=== PATIENT | male | born 1980 | race Caucasian/White ===

== ENCOUNTER 2020-11-20 16:08 | Inpatient (IN) | payer OTHER ==
[2020-11-20 16:37] LABS: Basophils # (A) 0.1 k/uL (0-0.2); Basophils % (A) 1 %; Eosinophils # (A) 0.2 k/uL (0-0.7); Eosinophils % (A) 2 %; HCT 47.1 % (39.0-53.0); HGB 15.7 gm/dL (13.0-17.5); Lymphocytes # (A) 3.3 k/uL (1.0-4.8); Lymphocytes % (A) 31 %; MCH 29.4 pg (25.0-35.0); MCHC 33.4 g/dL (31.0-37.0); MCV 87.8 fL (80.0-100.0); Mean Platelet Volume 7.6; Monocytes # (A) 0.4 k/uL (0-1.0); Monocytes % (A) 4 %; Neutrophils # (A) 6.5 k/uL (1.3-7.7); Neutrophils % (A) 60 %; Platelet Count 272 k/uL (150-450); RBC 5.36 m/uL (4.30-5.90); RDW 13.3 % (11.5-15.5); WBC 10.8 k/uL (3.8-10.6)
[2020-11-20] MEDS ORDERED: ASPIRIN 81 MG PO STA (16:45)
[2020-11-20] MEDS ORDERED: HEPARIN SODIUM,PORCINE 5,000 UNIT/ML 1 ML VIAL IV STA (16:46)
[2020-11-20] MEDS ORDERED: HEPARIN SODIUM 1,000 UN/ML (10ML VL) IV STA (16:46)
[2020-11-20] MEDS: NITROGLYCERIN SL TABS 0.4 MG TAB SUBLINGUAL STA ×3 (16:53→17:03)
[2020-11-20 16:54] LABS: D-Dimer <0.17 mg/L FEU (<0.60); INR 0.9 (<1.2); Partial Thromboplastin Time 23.6 sec (22.0-30.0)
[2020-11-20 16:56] LABS: Potassium 4.1 mmol/L (3.5-5.1)
[2020-11-20 16:57] LABS: ALT 27 U/L (4-49); AST 25 U/L (17-59); African American GFR (CKD) >90 (>60 ml/min/1.73 sqM); Albumin 4.4 g/dL (3.5-5.0); Alkaline Phosphatase 97 U/L (38-126); Anion Gap 10 mmol/L; Blood Urea Nitrogen 13 mg/dL (9-20); Calcium 9.6 mg/dL (8.4-10.2); Carbon Dioxide 26 mmol/L (22-30); Chloride 100 mmol/L (98-107); Glucose 336 mg/dL (74-99); Lipase 100 U/L (23-300); Magnesium 1.9 mg/dL (1.6-2.3); Non-African American GFR(CKD) >90 (>60 ml/min/1.73 sqM); Sodium 136 mmol/L (137-145); Total Bilirubin 0.9 mg/dL (0.2-1.3)
[2020-11-20] MEDS ORDERED: MORPHINE SULFATE 4 MG/ML SYRINGE IVP STA (17:04)
[2020-11-20] MEDS ORDERED: LIDOCAINE 1% INJ 10MG/ML (20 ML MDV) ONE (17:10)
[2020-11-20] MEDS ORDERED: VERAPAMIL 2.5 MG/ML 2 ML AMP ONE (17:10)
--- NOTE | 2020-11-20 17:11 | ED ---
Chest Pain HPI - General Chief Complaint: Chest Pain Stated Complaint: chest pain Source: patient Mode of arrival: wheelchair Limitations: no limitations - History of Present Illness Initial Comments: 39-year-old male with past medical history of diabetes, hypertension, family history of cardiac disease presents to the emergency room for chest pain. Patient reports that he developed chest pain around 9:00 this morning. Describes it as a burning sensation with intermittent stabbing pains. Denies any provocative factors. States that he has been constant since onset. He did take a baby aspirin at home. Patient has had chest congestion and a cough the past several days. States he was coughing up some pink tinged fluid which has subsequently stopped. Denies previous history of lung disease. No previous history of cardiac disease. No contact with Covid-positive people. Denies ripping or tearing sensation to his back. No abdominal pain. No other alleviating, Percepting or modifying factors - Related Data Home Medications Medication Instructions Recorded Confirmed Albuterol Sulfate [Proair Hfa] 2 puff INHALATION RT-Q4H PRN 11/20/20 11/20/20 Aspirin EC [Ecotrin Low Dose] 81 mg PO DAILY 11/20/20 11/20/20 Atorvastatin Calcium [Lipitor] 10 mg PO DAILY 11/20/20 11/20/20 DULoxetine HCL [Cymbalta] 60 mg PO DAILY 11/20/20 11/20/20 Glipizide (Unknown Strength) 1 dose PO DIRECTED 11/20/20 11/20/20 Insulin Detemir (Levemir) [Levemir] 15 unit SQ DAILY 11/20/20 11/20/20 hydrALAZINE HCL [Apresoline] 50 mg PO BID 11/20/20 11/20/20 lisinopriL [Zestril] 20 mg PO BID 11/20/20 11/20/20 metFORMIN HCL [Glucophage] 1,000 mg PO BID 11/20/20 11/20/20 Allergies Allergy/AdvReac Type Severity Reaction Status Date / Time No Known Allergies Allergy Verified 11/20/20 16:53 Review of Systems ROS Statement: Those systems with pertinent positive or pertinent negative responses have been documented in the HPI. ROS Other: All systems not noted in ROS Statement are negative. EKG Findings - EKG Comments: EKG Findings:: EKG at [address] elevation V1-V2 with .5 mm elevation V1 and 1 mm V2. Reciprocal depressions in 1 and aVL. Repeat EKG at [address] elevation in V1 through V3. Reciprocal depressions in 1 and aVL. Past Medical History Past Medical History: Diabetes Mellitus, Hyperlipidemia, Hypertension Additional Past Medical History / Comment(s): neuropathy History of Any Multi-Drug Resistant Organisms: None Reported Past Surgical History: Back Surgery, Hernia Repair Past Psychological History: Depression Smoking Status: Never smoker Past Alcohol Use History: None Reported Past Drug Use History: None Reported General Exam Limitations: no limitations General appearance: alert, in no apparent distress Head exam: Present: atraumatic, normocephalic, normal inspection Eye exam: Present: normal appearance, PERRL, EOMI. Absent: scleral icterus, conjunctival injection, periorbital swelling ENT exam: Present: normal exam, mucous membranes moist Neck exam: Present: normal inspection. Absent: tenderness, meningismus, lymphadenopathy Respiratory exam: Present: normal lung sounds bilaterally. Absent: respiratory distress, wheezes, rales, rhonchi, stridor Cardiovascular Exam: Present: regular rate, normal rhythm, normal heart sounds. Absent: systolic murmur, diastolic murmur, rubs, gallop, clicks GI/Abdominal exam: Present: soft, normal bowel sounds. Absent: distended, tenderness, guarding, rebound, rigid Extremities exam: Present: normal inspection, full ROM, normal capillary refill. Absent: tenderness, pedal edema, joint swelling, calf tenderness Back exam: Present: normal inspection Neurological exam: Present: alert, oriented X3, CN II-XII intact Psychiatric exam: Present: normal affect, normal mood Skin exam: Present: warm, dry, intact, normal color. Absent: rash Course Vital Signs 11/20/20 11/20/20 11/20/20 16:11 16:21 16:50 Temperature 98.1 F Pulse Rate 79 86 98 Respiratory 20 18 Rate Blood Pressure 157/107 195/124 O2 Sat by Pulse 98 Oximetry 11/20/20 11/20/20 11/20/20 16:54 17:00 17:07 Temperature Pulse Rate 97 98 97 Respiratory 18 18 18 Rate Blood Pressure 194/130 174/116 157/104 O2 Sat by Pulse Oximetry - Reevaluation(s) Reevaluation #1: Spoke with Dr. Abad regarding concern for EKG. No old for comparison. Will give patient nitro, aspirin and repeat EKG in 10 minutes 11/20/20 2146 Reevaluation #2: Dr. Abad already at pt bedside. Repeat EKG completed and now shows marked ST elevation 11/20/20 16:42 Chest Pain MDM - MDM Upon arrival patient is placed into room 27. Thorough history and physical exam was performed. EKG is performed which demonstrates hyperacute T waves in the anterior leads with reciprocal depression. Because these changes the patient w as given aspirin and nitro. IV is established. I did contact Dr. hadley to the emergency department. Repeat EKG is performed after 10 minutes which does demonstrate ST segment elevation. At this time the patient is informed that he is having an acute [place] and will be taken to the [facility]. Risks and benefits are discussed with him. He is given 4000 units of heparin. Pain is 10 minutes and therefore given 4 mg of morphine. Patient is taken to the [facility] in stable condition Disposition Clinical Impression: ST elevation myocardial infarction (STEMI) Disposition: ADMITTED IP TO THIS [facility] Condition: Serious Is patient prescribed a controlled substance at d/c from ED?: No Decision to Admit Reason: Admit from EC Decision Date: 11/20/20 Decision Time: 17:10
[2020-11-20] MEDS ORDERED: NALOXONE 0.4 MG/ML 1 ML VIAL IV PRN (17:12)
[2020-11-20] MEDS ORDERED: fentaNYL (PF) 50 MCG/ML 2 ML AMP ONE (17:13)
--- NOTE | 2020-11-20 17:18 | XR ---
EXAMINATION TYPE: XR chest 1V DATE OF EXAM: 11/20/2020 CLINICAL HISTORY: Chest Pain. TECHNIQUE: Portable frontal view of the chest. COMPARISON: None FINDINGS: Low lung volumes accentuates the cardiac silhouette and the lung markings. Pulmonary vascul ature is normal. There is no focal air space opacity. No pleural effusion. No pneumothorax seen. No acute displaced osseous fracture. IMPRESSION: Low lung volumes accentuates the cardiac silhouette and the lung markings. No acute cardiopulmonary p rocess.
--- NOTE | 2020-11-20 17:18 | P.CRDCN ---
History of Present Illness History of present illness: HISTORY OF PRESENTING ILLNESS Patient is a pleasant 39 year old male with history of hypertension, DM2, obesity and family history of CAD. He has been having a cough the last few weeks however started having a sharp chest pain and therefore came to ER. He had associated diaphoresis earlier however this improved. He denies associated SOB. No fevers or chills. Believes his cholesterol has been controlled. His family had CO at early age. Initial EKG showed only minimal ST elevation in V1- V3 wit some reciprocal depressions in I, AVL and therefore repeat was performed a few minutes later which showed evolving anterior ST elevations. REVIEW OF SYSTEMS At the time of my exam: CONSTITUTIONAL: Denies fever or chills. CARDIOVASCULAR: +chest pain, no shortness of breath, no orthopnea, PND or palpitations. RESPIRATORY:+cough. GASTROINTESTINAL: Denies abdominal pain, diarrhea, constipation, nausea or vomiting. MUSCULOSKELETAL: Denies myalgias. NEUROLOGIC: Denies numbness, tingling or weakness. ENDOCRINE: Denies fatigue, weight change, polydipsia or polyurina. GENITOURINARY: Denies burning, hematuria or urgency with micturation. HEMATOLOGIC: Denies history of anemia or bleeding. PHYSICAL EXAMINATION Vital signs reviewed. CONSTITUTIONAL: No apparent distress, obese HEENT: Head is normocephalic. Pupils are equal, round. Sclerae anicteric. Mucous membranes of the mouth are moist. No JVD. No carotid bruit. CHEST EXAMINATION: Lungs are clear to auscultation. No chest wall tenderness is noted on palpation or with deep breathing. HEART EXAMINATION: Regular rate and rhythm. S1, S2 heard. No murmurs, gallops or rub. ABDOMEN: Soft, nontender. Positive bowel sounds. EXTREMITIES: 2+ peripheral pulses, no lower extremity edema and no calf tenderness. NEUROLOGIC EXAMINATION: Patient is awake, alert and oriented x 3 ASSESSMENT 1. Anterior STEMI, evolving, not meeting criteria for elevation on 1st EKG 2. DM2 3. Obesity 4. HLD 5. Family history of CAD PLAN Discussed risks and benefits of heart cath and we will take patient emergently for cath with PCI. Aspirin and heparin. Check 2D echo. Further recs to follow. Past Medical History Past Medical History: Diabetes Mellitus, Hyperlipidemia, Hypertension Additional Past Medical History / Comment(s): neuropathy History of Any Multi-Drug Resistant Organisms: None Reported Past Surgical History: Back Surgery, Hernia Repair Past Psychological History: Depression Smoking Status: Never smoker Past Alcohol Use History: None Reported Past Drug Use History: None Reported Medications and Allergies Home Medications Medication Instructions Recorded Confirmed Type Albuterol Sulfate [Proair Hfa] 2 puff INHALATION RT-Q4H PRN 11/20/20 11/20/20 History Aspirin EC [Ecotrin Low Dose] 81 mg PO DAILY 11/20/20 11/20/20 History Atorvastatin Calcium [Lipitor] 10 mg PO DAILY 11/20/20 11/20/20 History DULoxetine HCL [Cymbalta] 60 mg PO DAILY 11/20/20 11/20/20 History Glipizide (Unknown Strength) 1 dose PO DIRECTED 11/20/20 11/20/20 History Insulin Detemir (Levemir) [Levemir] 15 unit SQ DAILY 11/20/20 11/20/20 History hydrALAZINE HCL [Apresoline] 50 mg PO BID 11/20/20 11/20/20 History lisinopriL [Zestril] 20 mg PO BID 11/20/20 11/20/20 History metFORMIN HCL [Glucophage] 1,000 mg PO BID 11/20/20 11/20/20 History Allergies Allergy/AdvReac Type Severity Reaction Status Date / Time No Known Allergies Allergy Verified 11/20/20 16:53 Physical Exam Vitals: Vital Signs Temp Pulse Resp BP Pulse Ox 11/20/20 17:07 97 18 157/104 11/20/20 17:00 98 18 174/116 11/20/20 16:54 97 18 194/130 11/20/20 16:50 98 18 195/124 11/20/20 16:21 86 11/20/20 16:11 98.1 F 79 20 157/107 98 Intake and Output 11/20/20 11/20/20 11/20/20 06:59 14:59 22:59 Other: Weight 113.398 kg Results 11/20/20 16:25 11/20/20 16:25 Cardiac Enzymes 11/20/20 Range/Units 16:25 AST 25 (17-59) U/L Coagulation 11/20/20 Range/Units 16:25 PT 10.0 (9.0-12.0) sec APTT 23.6 (22.0-30.0) sec CBC 11/20/20 Range/Units 16:25 WBC 10.8 H (3.8-10.6) k/uL RBC 5.36 (4.30-5.90) m/uL Hgb 15.7 (13.0-17.5) gm/dL Hct 47.1 (39.0-53.0) % Plt Count 272 (150-450) k/uL Comprehensive Metabolic Panel 11/20/20 Range/Units 16:25 Sodium 136 L (137-145) mmol/L Potassium 4.1 (3.5-5.1) mmol/L Chloride 100 (98-107) mmol/L Carbon Dioxide 26 (22-30) mmol/L BUN 13 (9-20) mg/dL Creatinine 0.46 L (0.66-1.25) mg/dL Glucose 336 H (74-99) mg/dL Calcium 9.6 (8.4-10.2) mg/dL AST 25 (17-59) U/L ALT 27 (4-49) U/L Alkaline Phosphatase 97 (38-126) U/L Total Protein 7.0 (6.3-8.2) g/dL Albumin 4.4 (3.5-5.0) g/dL Intake and Output 11/20/20 11/20/20 11/20/20 06:59 14:59 22:59 Other: Weight 113.398 kg Patient Weight 11/21/20 06:59 Weight 113.398 kg 11/20/20 16:25 11/20/20 16:25
[2020-11-20] MEDS ORDERED: IV FLUID CONTINUATION 400 ML IV ONE (17:20)
[2020-11-20] MEDS ORDERED: SODIUM CHLORIDE 0.9% 1,000 ML IV ONE (17:20)
[2020-11-20] MEDS ORDERED: NITROGLYCERIN SL TABS 0.4 MG TAB SUBLINGUAL ONE ×2 (17:22)
[2020-11-20] MEDS ORDERED: LIDOCAINE 1% INJ 10MG/ML (20 ML MDV) SQ ONE (17:24)
[2020-11-20] MEDS ORDERED: MIDAZOLAM 2 MG/2 ML VIAL IV ONE (17:25)
[2020-11-20] MEDS: fentaNYL (PF) 50 MCG/ML 2 ML AMP IV ONE ×2 (17:25→17:49)
[2020-11-20] MEDS ORDERED: VERAPAMIL SYRINGE (5 MG/10 ML) INTRAARTER ONE (17:25)
[2020-11-20] MEDS ORDERED: IOPAMIDOL-370 125ML BTL INJ ONE (17:41)
[2020-11-20] MEDS ORDERED: HEPARIN SODIUM 1,000 UN/ML (10ML VL) ONE (17:48)
[2020-11-20] MEDS ORDERED: HEPARIN SODIUM 1,000 UN/ML (10ML VL) IV ONE (17:49)
[2020-11-20] MEDS ORDERED: IOPAMIDOL-370 100ML BTL INJ ONE (18:14)
[2020-11-20] MEDS ORDERED: TICAGRELOR 90 MG TAB ONE (18:17)
[2020-11-20] MEDS ORDERED: TICAGRELOR 90 MG TAB PO ONE (18:18)
[2020-11-20] MEDS: HEPARIN SODIUM 1,000 UN/ML (10ML VL) IV ONE ×2 (18:18→18:33)
[2020-11-20] MEDS ORDERED: LOSARTAN 50 MG TAB PO STA (18:30)
[2020-11-20] MEDS ORDERED: carvediloL 12.5 MG TAB PO STA (18:31)
[2020-11-20] MEDS ORDERED: hydrALAZINE HCL 20 MG/ML 1 ML VIAL ONE (18:31)
[2020-11-20] MEDS ORDERED: NITROGLYCERIN-D5W PMX 50 MG in DEXTROSE/WATER 1 250ML.BAG IV ONE (18:32)
[2020-11-20] MEDS: hydrALAZINE HCL 20 MG/ML 1 ML VIAL IV ONE ×2 (18:32→18:38)
[2020-11-20] MEDS ORDERED: NITROGLYCERIN SL TABS 0.4 MG TAB SUBLINGUAL PRN (18:36)
[2020-11-20] MEDS ORDERED: MAG HYDROX/AL HYDROX/SIMETH 30 ML CUP PO PRN (18:36)
[2020-11-20] MEDS ORDERED: ATROPINE SULFATE 0.1 MG/ML 10ML SYRINGE IV PRN (18:36)
[2020-11-20] MEDS ORDERED: ZOLPIDEM 5 MG TAB PO PRN (18:36)
[2020-11-20] MEDS ORDERED: RX INFO: IV CONTRAST WAS GIVEN 1 EACH MISC MISCELLANE PRN (18:36)
--- NOTE | 2020-11-20 18:59 | P.PRCINT ---
Percutaneous Coronary Int. - Percutaneous Coronary Intervention Percutaneous Coronary Intervention: PROCEDURES PERFORMED: Left heart catheterization, bilateral coronary angiography, PCI of proximal to distal LAD with overlapping 3.5 x 18, 2.75 x 38, 2.75 x 38, 2.5 x 23 mm Xience BALTA, post dilated proximally with a 4.5 NC balloon. INDICATION: Anterior STEMI HISTORY: Patient is a pleasant 39-year-old male with history of diabetes mellitus for approximately 5-6 years, hypertension, obesity and strong family history of coronary artery disease who presented with chest pain and was found to have initial EKG not meeting criteria for STEMI however evolving STEMI with ST elevations in V1 through V3. Therefore catheterization lab was activated. CONSENT:I have discussed the risks, benefits and alternative therapies for the above-mentioned procedure and for both sedation/analgesia as well as necessary blood product administration, if indicated, as they pertain to this patient. The patient has indicated understanding and acceptance of the risks and procedures discussed. PROCEDURE: After the risks, benefits and alternatives of the above mentioned procedure explained in detail with the patient, informed consent was obtained. Patient was taken to the catheterization lab and prepped and draped in usual fashion. 1% lidocaine was used to anesthetize the right radial artery. A 6- [place] sheath was placed in the right radial artery using modified Seldinger technique. Left coronary angiography was performed with a 5-[place] CLS 3.5 catheter however was somewhat too big and selective in the circumflex and therefore a CLS 3.0 guide was used. Right coronary angiography was performed with a 5-[place] JR5 catheter in various views. A 5-[place] FR5 catheter was inserted into the left ventricle and pressure measurements were obtained. The decision was made to intervene on the LAD. Heparin was given for an ACT greater than 250. The CLS 3.5 guide was selective in the circumflex and therefore a CLS 3.0 guide was used to engage the left main. Balloon angioplasty was performed initially with a 2.5 x 12 mm balloon. The entire proximal to distal LAD was diffusely diseased requiring stenting of the entire segment. Overlapping stents were placed from proximal to distal with a 3.5 x 18 mm, 2.75 x 38 mm, 2.75 x 38 mm and 2.5 x 23 mm Xience BALTA. The proximal portion of the stent was postdilated with a 4.5 x 12 mm noncompliant balloon. There was more distal apical 50% LAD stenosis however felt best treated medically. The distal circumflex stenosis appeared more chronic with EKG changes anteriorly and follow best treated medically. The RCA lesion felt best treated with staged PCI. Preintervention there was PINEDA 1 flow with tandem 95, 90% stenosis and post intervention there was PINEDA 3 flow with 0% stenosis and no dissection. The right radial sheath was removed and a TR band was placed with hemostasis achieved. The patient tolerated the procedure well. Patient was transported back to the post catheterization holding area in stable condition. Patient's chest pain was down to a [address] residual ST elevations however felt mostly related to microvascular dysfunction. Conscious Sedation: Patient was monitored under the direct supervision of vision of myself for conscious sedation using Versed and fentanyl for a total duration of 60 minutes HEMODYNAMICS: Ao 161/100 LV: 154/5, LVEDP 35mmHg SELECTIVE CORONARY ARTERIOGRAPHY: LEFT MAIN: The left main is a large caliber, short vessel which bifurcates into the LAD and circumflex. There is no significant stenosis. LEFT ANTERIOR DESCENDING CORONARY ARTERY: LAD is a large caliber vessel which wraps around to the apex. The entire proximal to mid and mid distal LAD is diffusely diseased. There is diffuse 50% stenosis with focal 95% proximal, mid 90%, 90% tandem stenoses. The distal LAD has a 50-60% stenosis. LEFT CIRCUMFLEX CORONARY ARTERY: Left circumflex is a moderate caliber vessel with mid 30% stenosis. After a moderate caliber OM 1, the circumflex is 100% occluded with faint left to left collaterals to an OM2. RIGHT CORONARY ARTERY: The right coronary artery is a large caliber vessel which gives off a PDA and PLV branch and is the dominant vessel. There is a mid 80% RCA stenosis. FINAL IMPRESSION: 1. Coronary artery disease as described above including diffuse proximal to distal LAD 95% stenosis, distal circumflex 100% stenosis and mid RCA 80% stenosis 2. Anterior STEMI 3. Status post PCI of proximal to distal LAD with overlapping 3.5 x 18, 2.75 x 38, 2.75 x 38, 2.5 x 23 mm Xience BALTA, post dilated proximally with a 4.5 NC balloon 4. Severely elevated left-sided filling pressures 5. Uncontrolled hypertension PLAN: 1. Aggressive risk factor modification per most recent ACC/AHA guidelines. 2. Continue dual antiplatelets for 12 months. 3. Aggressive blood pressure control. Nitroglycerin drip to help with blood pressure.
[2020-11-20 19:04] LABS: Glucose,Whole Blood 325 mg/dL (75-99)
[2020-11-20 20:20] LABS: Glucose,Whole Blood 375 mg/dL (75-99)
[2020-11-20] MEDS: INSULIN ASPART (NovoLOG) 100 UNIT/ML VIAL SQ SCH (20:20)
[2020-11-20 20:53] LABS: Glucose,Whole Blood 401 mg/dL (75-99)
[2020-11-20] MEDS ORDERED: NITROGLYCERIN-D5W PMX 50 MG in DEXTROSE/WATER 1 250ML.BAG IV SCH (22:00)
[2020-11-20] MEDS ORDERED: INSULIN DETEMIR (LEVEMIR) 100 UNIT/ML SYR SQ SCH (22:00)
[2020-11-21 00:21] LABS: Glucose,Whole Blood 307 mg/dL (75-99)
[2020-11-21 04:23] LABS: Basophils % (A) 0 %; Eosinophils # (A) 0.1 k/uL (0-0.7); Eosinophils % (A) 1 %; HCT 41.2 % (39.0-53.0); HGB 14.5 gm/dL (13.0-17.5); Lymphocytes # (A) 1.9 k/uL (1.0-4.8); Lymphocytes % (A) 20 %; MCH 30.8 pg (25.0-35.0); MCHC 35.2 g/dL (31.0-37.0); MCV 87.7 fL (80.0-100.0); Mean Platelet Volume 7.5; Monocytes # (A) 0.5 k/uL (0-1.0); Monocytes % (A) 5 %; Neutrophils % (A) 72 %; Platelet Count 254 k/uL (150-450); RDW 12.9 % (11.5-15.5); WBC 9.7 k/uL (3.8-10.6)
[2020-11-21 04:35] LABS: African American GFR (CKD) >90 (>60 ml/min/1.73 sqM); Anion Gap 6 mmol/L; Blood Urea Nitrogen 12 mg/dL (9-20); Carbon Dioxide 26 mmol/L (22-30); Chloride 101 mmol/L (98-107); Glucose 249 mg/dL (74-99); Non-African American GFR(CKD) >90 (>60 ml/min/1.73 sqM); Potassium 3.9 mmol/L (3.5-5.1); Sodium 133 mmol/L (137-145)
[2020-11-21] MEDS ORDERED: Potassium Replacement Protocol 1 EACH MISC MISCELLANE PRN (05:36)
[2020-11-21] MEDS ORDERED: POTASSIUM CHLORIDE ER 20 MEQ TAB.ER PO SCH (06:00)
[2020-11-21 06:40] LABS: Glucose,Whole Blood 223 mg/dL (75-99)
[2020-11-21] MEDS: carvediloL 12.5 MG TAB PO SCH ×2 (06:42→17:26)
[2020-11-21] MEDS: INSULIN ASPART (NovoLOG) 100 UNIT/ML VIAL SQ SCH ×7 (06:42→20:35)
[2020-11-21 08:09] LABS: Glucose,Whole Blood 252 mg/dL (75-99)
[2020-11-21] MEDS: LOSARTAN 50 MG TAB PO SCH (10:19)
[2020-11-21] MEDS: TICAGRELOR 90 MG TAB PO SCH ×2 (10:19→20:35)
[2020-11-21] MEDS: ASPIRIN 81 MG PO SCH (10:19)
[2020-11-21] MEDS ORDERED: ACETAMINOPHEN TAB 325 MG TAB PO PRN (10:20)
--- NOTE | 2020-11-21 10:44 | P.HPIM ---
History of Present Illness H&P Date: 11/21/20 Chief Complaint: Chest pain, STEMI History of present illness This is a 39-year-old patient of Dr. Garay with a past medical history significant for diabetes, hypertension, family history of coronary artery disease. Presented to the emergency room for chest pain. Patient stated that he developed chest pain around 10:00 yesterday morning. Patient describes the pain as a burning sensation with intermittent stabbing pain. He states the pain was constant once he woke up. He did take a baby aspirin while he was at home. Previously patient stated that he was having some cough congestion for the past several days when he initially woke up he thought that was what was related from. He was coughing up pink tinged fluid which stopped approximately 3 days ago. Patient denies any history of lung disease he has been a lifelong nonsmoker. Patient is found to have anterior STEMI evolving. Denies any palpitations, shortness of breath, diaphoresis, or lightheadedness. Circumflex diabetes for the last 5 years. He has been uncontrolled throughout the entire time. Hemoglobin A1c was 14.1. Patient states that he takes Levemir and a oral agent at home however he has not been able to keep his blood sugars under control. At this time patient is resting comfortably and ICU currently on a nitro drip. Blood sugar 257. He received 20 units of Levemir and sliding scale and 10 units of NovoLog. Patient is complaining of some gastric discomfort and chest discomfort this time. Patient is postop PCI of the LAD with 4 stents. Patient also had a 100% blockage to the circumflex and 80% blockage to the RCA. He is currently on anticoagulant medications. He remained afebrile, heart rate 97, respirations 18, blood pressure 109/74 pulse oxing 94% on 4 L. Daily BC 9.7, hemoglobin 14.5, platelet 254, potassium 3.9, BUN 12, creatinine 0.39 blood sugars running from 41 09/01/1947. COVID-19 not detected Review Of Systems: Constitutional: No fever, no chills, no night sweats. No weight change. No weakness, reports fatigue no lethargy. No daytime sleepiness. EENT: No headache. No blurred vision or double vision, no loss of vision. No loss of Hearing, no ringing in the ears, no dizziness. No nasal drainage or congestion. No epistaxis. No sore throat. Lungs: No shortness of breath, cough, no sputum production. No wheezing. Cardiovascular: Reports chest pain, no lower extremity edema. No palpitations. No paroxysmal nocturnal dyspnea. No orthopnea. No lightheadedness or d izziness. No syncopal episodes. Abdominal: Reports abdominal discomfort. Reports nausea, no vomiting. no diarrhea. No constipation. No bloody or tarry stools. no loss of appetite. Genitourinary: No dysuria, increased frequency, urgency. No urinary retention. Musculoskeletal: No myalgias. No muscle weakness, no gait dysfunction, no frequent falls. No back pain. No neck pain. Integumentary: No wounds, no lesions. No rash or pruritus. No unusual bruising. No change in hair or nails. Neurologic: No aphasia. No facial droop. No change in mentation. No head injury. No headache. No paralysis. No paresthesia. Psychiatric: No depression. No anxiety. No mood swings. Endocrine: No abnormal blood sugars. No weight change. No excessive sweating or thirst. Social history: Patient works at [employer], he is a lifelong nonsmoker, denies EtOH, illicit drug use Family history: Patient is with 5 daughters who are healthy, he has one brother who is healthy, his dad in his 40s from coronary artery disease, mom is still alive with diabetes and coronary artery disease. Physical examination General Appearance: Alert, cooperative, no distress, 39-year-old appears stated age. Neck HEENT: Supple, no lymphadenopathy, no thyroid enlargement, no carotid bruits. Lungs: Clear to auscultation without crackles or wheezes no rhonchi, no defor mity. Chest Wall: Chest wall normal expansion with deep inspiration no tenderness and no deformity was found on exam, no costochondral pain or discomfort. Heart: Regular rate and rhythm, S1, S2 normal, no murmur, rub or gallop. Back: Symmetric, no curvature, ROM normal, no CVA tenderness. Abdomen: Soft, non-tender, no rebound or rigidity, no hepatosplenomegaly. Extremities: Extremities normal, atraumatic, no cyanosis or edema. Pulses: 2+ and symmetric. Skin: Skin color, texture, tugor normal, no rashes or lesions. Neurologic: Alert oriented x3 cranial nerves II through XII intact, no motor def icit, no abnormal balance or gait Assessment and plan 1. Chest pain with Anterior STEMI evolving post-PCI of LAD. Continue aspirin 81 mg, Brilinta 1090 mg by mouth twice a day. Continue with nitro drip to titrate. currently in the intensive care unit. Echocardiogram results pending 2. Coronary artery disease, circumflex 100% blockage, RCA 80% blockage. As noted above 3. Uncontrolled diabetes mellitus. Increase Levemir to 30 units at bedtime, NovoLog sliding scale, NovoLog 10 units 3 times a day. If blood sugars then 200 change to Accu-Cheks before meals at bedtime every 4 hours. 4. Uncontrolled hypertension. Cozaar 50 mg by mouth daily, carvedilol 12.5 mg by mouth twice a day 5. Hyperlipidemia. Lipitor 20 mg by mouth daily 6. Depression. Continue Cymbalta 60 mg by mouth daily 7. Family history of coronary artery disease. 8. 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 DVT prophylaxis. Continue aspirin and Brilinta 10. GI prophylaxis. Pepcid CODE STATUS: Full code Discharge plan: Patient be admitted for a minimum of 2 nights day Impression and plan of care have been directed as dictated by the signing physician. Melissa Thomson nurse practitioner acting as scribe for signing physician. Past Medical History Past Medical History: Diabetes Mellitus, Hyperlipidemia, Hypertension Additional Past Medical History / Comment(s): neuropathy History of Any Multi-Drug Resistant Organisms: None Reported Past Surgical History: Back Surgery, Hernia Repair Past Anesthesia/Blood Transfusion Reactions: No Reported Reaction Past Psychological History: Depression Smoking Status: Never smoker Past Alcohol Use History: None Reported Past Drug Use History: None Reported Medications and Allergies Home Medications Medication Instructions Recorded Confirmed Type Albuterol Sulfate [Proair Hfa] 2 puff INHALATION RT-Q4H PRN 11/20/20 11/20/20 History Aspirin EC [Ecotrin Low Dose] 81 mg PO DAILY 11/20/20 11/20/20 History Atorvastatin Calcium [Lipitor] 10 mg PO DAILY 11/20/20 11/20/20 History DULoxetine HCL [Cymbalta] 60 mg PO DAILY 11/20/20 11/20/20 History Glipizide (Unknown Strength) 1 dose PO DIRECTED 11/20/20 11/20/20 History Insulin Detemir (Levemir) [Levemir] 15 unit SQ DAILY 11/20/20 11/20/20 History hydrALAZINE HCL [Apresoline] 50 mg PO BID 11/20/20 11/20/20 History lisinopriL [Zestril] 20 mg PO BID 11/20/20 11/20/20 History metFORMIN HCL [Glucophage] 1,000 mg PO BID 11/20/20 11/20/20 History Allergies Allergy/AdvReac Type Severity Reaction Status Date / Time No Known Allergies Allergy Verified 11/20/20 16:53 Physical Exam Vitals: Vital Signs Temp Pulse Resp BP Pulse Ox 11/21/20 10:00 97 18 109/74 94 L 11/21/20 09:30 93 18 121/78 94 L 11/21/20 09:00 98 27 H 125/80 95 11/21/20 08:30 91 12 125/91 94 L 11/21/20 08:00 98.8 F 84 20 135/95 88 L 11/21/20 07:30 90 141/99 91 L 11/21/20 07:00 86 14 139/94 90 L 11/21/20 06:30 84 19 139/98 92 L 11/21/20 06:00 80 17 130/93 92 L 11/21/20 05:30 87 18 126/87 93 L 11/21/20 05:00 80 17 122/88 94 L 11/21/20 04:30 78 15 117/83 94 L 11/21/20 04:00 98 F 77 17 126/87 93 L 11/21/20 03:30 80 19 131/88 92 L 11/21/20 03:00 83 18 119/92 94 L 11/21/20 02:30 80 12 113/85 97 11/21/20 02:00 78 16 107/80 97 11/21/20 01:30 77 16 108/76 97 11/21/20 01:05 79 18 97 11/21/20 01:00 78 15 101/74 97 11/21/20 00:30 77 18 103/68 97 11/21/20 00:00 98.7 F 81 10 L 101/65 96 11/20/20 23:30 86 20 104/66 96 11/20/20 23:00 88 20 105/63 95 11/20/20 22:30 92 20 101/72 94 L 11/20/20 22:00 93 26 H 123/77 94 L 11/20/20 21:30 102 H 22 109/75 94 L 11/20/20 21:00 99 11 L 116/71 95 11/20/20 20:30 98 28 H 120/75 95 11/20/20 20:00 97.6 F 98 18 125/77 95 11/20/20 19:30 100 6 L 132/78 94 L 11/20/20 19:00 97 17 119/68 94 L 11/20/20 18:59 97 12 106/60 89 L 11/20/20 17:07 97 18 157/104 11/20/20 17:00 98 18 174/116 11/20/20 16:54 97 18 194/130 11/20/20 16:50 98 18 195/124 11/20/20 16:21 86 11/20/20 16:11 98.1 F 79 20 157/107 98 Intake and Output 11/20/20 11/21/20 11/21/20 22:59 06:59 14:59 Intake Total 1183 953.1 85.025 Output Total 950 0 0 Balance 233 953.1 85.025 Intake: IV 703 435 80 0.9 300 435 80 Intake, IV Titration 38.1 5.025 Amount Nitroglycerin-D5w Pmx 50 38.1 5.025 mg In Dextrose/Water 1 250ml.bag @ Titrate IV . Q0M [facility] Rx#:[id number] Oral 480 480 Output: Urine 950 0 0 Other: # Voids 1 # Bowel Movements 1 Weight 121.563 kg 119.703 kg Results CBC & Chem 7: 11/21/20 03:47 11/21/20 03:47 Labs: Abnormal Lab Results - Last 24 Hours (Table) 11/20/20 11/20/20 11/20/20 Range/Units 16:25 16:25 16:25 WBC 10.8 H (3.8-10.6) k/uL Sodium 136 L (137-145) mmol/L Creatinine 0.46 L (0.66-1.25) mg/dL Glucose 336 H (74-99) mg/dL POC Glucose (mg/dL) (75-99) mg/dL Troponin I 0.073 H* (0.000-0.034) ng/mL 11/20/20 11/20/20 11/20/20 Range/Units 19:02 20:18 20:52 WBC (3.8-10.6) k/uL Sodium (137-145) mmol/L Creatinine (0.66-1.25) mg/dL Glucose (74-99) mg/dL POC Glucose (mg/dL) 325 H 375 H 401 H (75-99) mg/dL Troponin I (0.000-0.034) ng/mL 11/21/20 11/21/20 11/21/20 Range/Units 00:20 03:47 06:39 WBC (3.8-10.6) k/uL Sodium 133 L (137-145) mmol/L Creatinine 0.39 L (0.66-1.25) mg/dL Glucose 249 H (74-99) mg/dL POC Glucose (mg/dL) 307 H 223 H (75-99) mg/dL Troponin I (0.000-0.034) ng/mL 11/21/20 Range/Units 08:07 WBC (3.8-10.6) k/uL Sodium (137-145) mmol/L Creatinine (0.66-1.25) mg/dL Glucose (74-99) mg/dL POC Glucose (mg/dL) 252 H (75-99) mg/dL Troponin I (0.000-0.034) ng/mL Thrombosis Risk Factor Assmnt - Choose All That Apply Any of the Below Risk Factors Present?: Yes Each Factor Represents 1 point: Acute CA, Medical pt on bed rest Other Risk Factors: No Other congenital or acquired thrombophilia - If yes, enter type in comment: No Thrombosis Risk Factor Assessment Total Risk Factor Score: 2 Thrombosis Risk Factor Assessment Level: Low Risk
[2020-11-21 12:10] LABS: Glucose,Whole Blood 286 mg/dL (75-99)
--- NOTE | 2020-11-21 13:00 | ECHOF ---
Referral Reason:re: STEMI MEASUREMENTS -------- HEIGHT: 190.5 cm WEIGHT: 119.3 kg BP: 139/94 RVIDd: 2.4 cm (< 3.3) IVSd: 1.9 cm (0.6 - 1.1) LVIDd: 4.7 cm (3.9 - 5.3) LVPWd: 1.7 cm (0.6 - 1.1) IVSs: 2.1 cm LVIDs: 3.3 cm LVPWs: 1.9 cm LAESV Index (A-L): 26.77 ml/m Ao Diam: 3.4 cm (2.0 - 3.7) AV Cusp: 2.2 cm (1.5 - 2.6) MV EXCURSION: 21.910 mm (> 18.000) MV EF SLOPE: 231 mm/s (70 - 150) EPSS: 0.6 cm MV E Uri: 0.79 m/s MV DecT: 130 ms MV A Uri: 0.52 m/s MV E/A Ratio: 1.54 RAP: 5.00 mmHg RVSP: 35.98 mmHg FINDINGS -------- Sinus rhythm. This was a technically difficult study with suboptimal apical views. Patient is post cardiac cathet erization and cannot be in left lateral position. The left ventricular size is normal. There is severe concentric left ventricular hypertrophy. Ove rall left ventricular systolic function is moderately impaired with, an EF between 35 - 40 %. Mid a nterior LV wall motion is hypokinetic. Mid anteroseptal LV wall motion is hypokinetic. The right ventricle is normal in size. Normal LA size by volume 22+/-6 ml/m2. The right atrial size is normal. 5.0mg of Lumason was utilized for enhancement of images Interatrial and interventricular septum intact. The aortic valve is trileaflet and appears structurally normal. There is no evidence of aortic regu rgitation. There is no evidence of aortic stenosis. Mild mitral regurgitation is present. Mild tricuspid regurgitation present. There is borderline pulmonary artery hypertension. The righ t ventricular systolic pressure, as measured by Doppler, is 35.98mmHg. There is no pulmonic regurgitation present. The aortic root size is normal. IVC Not well visulized. Echo free space represents a pericardial fat pad. There is no pericardial effusion. CONCLUSIONS -------- 1. The left ventricular size is normal. 2. There is severe concentric left ventricular hypertrophy. 3. Overall left ventricular systolic function is moderately impaired with, an EF between 35 - 40 %. 4. Mid anterior LV wall motion is hypokinetic. 5. Mid anteroseptal LV wall motion is hypokinetic. 6. Mild mitral regurgitation is present. 7. Mild tricuspid regurgitation present. 8. There is borderline pulmonary artery hypertension. 9. The right ventricular systolic pressure, as measured by Doppler, is 35.98mmHg. 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
[2020-11-21 13:38] VITALS: BMI 33.0
[2020-11-21 15:09] LABS: Hemoglobin A1C 12.8 % (4.0-6.0)
--- NOTE | 2020-11-21 15:56 | P.PN ---
Subjective HISTORY OF PRESENTING ILLNESS Patient is a pleasant 39 year old male with history of hypertension, DM2, obesity and family history of CAD. He has been having a cough the last few weeks however started having a sharp chest pain and therefore came to ER. He had associated diaphoresis earlier however this improved. He denies associated SOB. No fevers or chills. Believes his cholesterol has been controlled. His family had MS at early age. Initial EKG showed only minimal ST elevation in V1- V3 wit some reciprocal depressions in I, AVL and therefore repeat was performed a few minutes later which showed evolving anterior ST elevations. 11/21 Patient seen and examined. Patient had left heart catheterization performed yesterday which showed multiple 90 and 95% blockages of the LAD, a distal circumflex leading tone OM 2 100% stenosis, and mid RCA 80% stenosis. Patient underwent long stenting of the proximal to mid LAD however did have persistent ST elevations. His LVEDP was noted to be extremely high at 35 however was also very hypertensive at this time. He was placed on nitroglycerin drip as well as given hydralazine with some improvement in his blood pressures. Today he states he is feeling well. His nitroglycerin drip was weaned off and currently is denying any chest pain or pressure. He initially was somewhat lightheaded when he stood up however is feeling better now. He has been continued on aspirin and Brilinta. No shortness breath. PHYSICAL EXAMINATION Vital signs reviewed. CONSTITUTIONAL: No apparent distress, obese HEENT: Head is normocephalic. Pupils are equal, round. Sclerae anicteric. Mucous membranes of the mouth are moist. No JVD. No carotid bruit. CHEST EXAMINATION: Lungs are clear to auscultation. No chest wall tenderness is noted on palpation or with deep breathing. HEART EXAMINATION: Regular rate and rhythm. S1, S2 heard. No murmurs, gallops or rub. ABDOMEN: Soft, nontender. Positive bowel sounds. EXTREMITIES: 2+ peripheral pulses, no lower extremity edema and no calf tenderness. NEUROLOGIC EXAMINATION: Patient is awake, alert and oriented x 3 ASSESSMENT 1. Anterior STEMI, status post PCI proximal to mid LAD 11/20/2020 2. DM2 3. Obesity 4. HLD 5. Family history of CAD 6. CAD with residual distal circumflex 100% stenosis, likely BAKER PASTRY and mid RCA 80% stenosis 7. Ischemic cardiomyopathy ejection fraction 35-40% 8. Acute on chronic systolic heart failure, appears euvolemic PLAN Continue dual antiplatelets for 12 months. Continue beta ria and losartan. Echocardiogram shows ejection fraction 35-40% and we will titrate heart failure regimen as able. He currently appears euvolemic. Discussed staged PCI of RCA and patient is agreeable. We will make arrangements for Monday morning. Objective - Vital Signs Vital signs: Vital Signs Temp 98.7 F 11/21/20 12:00 Pulse 86 11/21/20 15:00 Resp 17 11/21/20 15:00 BP 109/68 11/21/20 15:00 Pulse Ox 92 L 11/21/20 15:00 Intake & Output 11/20/20 11/21/20 11/21/20 18:59 06:59 18:59 Intake Total 403 1733.1 712.650 Output Total 950 650 Balance 403 783.1 62.650 Weight 113.398 kg 119.703 kg 119.703 kg Intake: IV 403 735 180 0.9 735 180 Intake, IV Titration 38.1 32.650 Amount Nitroglycerin-D5w Pmx 50 38.1 32.650 mg In Dextrose/Water 1 250ml.bag @ Titrate IV . Q0M [facility] Rx#:[id number] Oral 960 500 Output: Urine 950 650 Other: # Voids 1 # Bowel Movements 1 - Labs CBC & Chem 7: 11/21/20 03:47 11/21/20 03:47 Labs: Abnormal Lab Results - Last 24 Hours (Table) 11/20/20 11/20/20 11/20/20 Range/Units 16:25 16:25 16:25 WBC 10.8 H (3.8-10.6) k/uL Sodium 136 L (137-145) mmol/L Creatinine 0.46 L (0.66-1.25) mg/dL Glucose 336 H (74-99) mg/dL POC Glucose (mg/dL) (75-99) mg/dL Hemoglobin A1c (4.0-6.0) % Troponin I 0.073 H* (0.000-0.034) ng/mL 11/20/20 11/20/20 11/20/20 Range/Units 19:02 20:18 20:52 WBC (3.8-10.6) k/uL Sodium (137-145) mmol/L Creatinine (0.66-1.25) mg/dL Glucose (74-99) mg/dL POC Glucose (mg/dL) 325 H 375 H 401 H (75-99) mg/dL Hemoglobin A1c (4.0-6.0) % Troponin I (0.000-0.034) ng/mL 11/21/20 11/21/20 11/21/20 Range/Units 00:20 03:47 03:47 WBC (3.8-10.6) k/uL Sodium 133 L (137-145) mmol/L Creatinine 0.39 L (0.66-1.25) mg/dL Glucose 249 H (74-99) mg/dL POC Glucose (mg/dL) 307 H (75-99) mg/dL Hemoglobin A1c 12.8 H (4.0-6.0) % Troponin I (0.000-0.034) ng/mL 11/21/20 11/21/20 11/21/20 Range/Units 06:39 08:07 12:07 WBC (3.8-10.6) k/uL Sodium (137-145) mmol/L Creatinine (0.66-1.25) mg/dL Glucose (74-99) mg/dL POC Glucose (mg/dL) 223 H 252 H 286 H (75-99) mg/dL Hemoglobin A1c (4.0-6.0) % Troponin I (0.000-0.034) ng/mL
[2020-11-21 16:30] LABS: Cholesterol 176 mg/dL (<200); HDL Cholesterol 37 mg/dL (40-60); LDL Cholesterol,Calculated 117 mg/dL (0-99); Triglycerides 111 mg/dL (<150)
[2020-11-21 17:03] LABS: Glucose,Whole Blood 234 mg/dL (75-99)
[2020-11-21 20:04] LABS: Glucose,Whole Blood 208 mg/dL (75-99)
[2020-11-21] MEDS: INSULIN DETEMIR (LEVEMIR) 100 UNIT/ML SYR SQ SCH (20:36)
[2020-11-22 00:20] LABS: Glucose,Whole Blood 171 mg/dL (75-99)
[2020-11-22] MEDS: INSULIN ASPART (NovoLOG) 100 UNIT/ML VIAL SQ SCH ×12 (00:22→23:20)
[2020-11-22 04:25] LABS: Glucose,Whole Blood 199 mg/dL (75-99)
[2020-11-22] MEDS: carvediloL 12.5 MG TAB PO SCH ×2 (06:57→17:27)
[2020-11-22 08:08] LABS: Glucose,Whole Blood 140 mg/dL (75-99)
[2020-11-22] MEDS ORDERED: ATORVASTATIN 20 MG TAB PO SCH (09:00)
[2020-11-22] MEDS: TICAGRELOR 90 MG TAB PO SCH ×2 (09:00→21:13)
[2020-11-22] MEDS: DULoxetine HCL 60 MG CAPSULE.DR PO SCH (09:00)
[2020-11-22] MEDS ORDERED: ATORVASTATIN 10 MG TAB PO SCH (09:00)
[2020-11-22] MEDS: LOSARTAN 50 MG TAB PO SCH (09:00)
[2020-11-22] MEDS: ATORVASTATIN 40 MG TAB PO SCH (09:00)
[2020-11-22] MEDS: FAMOTIDINE 20 MG/2 ML VIAL IV SCH (09:00)
[2020-11-22] MEDS: ASPIRIN 81 MG PO SCH (09:02)
[2020-11-22] MEDS ORDERED: FUROSEMIDE 10 MG/ML 2 ML VIAL IV ONE (09:32)
--- NOTE | 2020-11-22 10:25 | P.PN ---
Subjective Progress Note Date: 11/22/20 History of present illness This is a 39-year-old patient of Dr. Garay with a past medical history significant for diabetes, hypertension, family history of coronary artery disease. Presented to the emergency room for chest pain. Patient stated that he developed chest pain around 10:00 yesterday morning. Patient describes the pain as a burning sensation with intermittent stabbing pain. He states the pain was constant once he woke up. He did take a baby aspirin while he was at home. Previously patient stated that he was having some cough congestion for the past several days when he initially woke up he thought that was what was related from. He was coughing up pink tinged fluid which stopped approximately 3 days ago. Patient denies any history of lung disease he has been a lifelong nonsmoker. Patient is found to have anterior STEMI evolving. Denies any palpitations, shortness of breath, diaphoresis, or lightheadedness. Circumflex diabetes for the last 5 years. He has been uncontrolled throughout the entire time. Hemoglobin A1c was 14.1. Patient states that he takes Levemir and a oral agent at home however he has not been able to keep his blood sugars under control. At this time patient is resting comfortably and ICU currently on a nitro drip. Blood sugar 257. He received 20 units of Levemir and sliding scale and 10 units of NovoLog. Patient is complaining of some gastric discomfort and chest discomfort this time. Patient is postop PCI of the LAD with 4 stents. Patient also had a 100% blockage to the circumflex and 80% blockage to the RCA. He is currently on anticoagulant medications. He remained afebrile, heart rate 97, respirations 18, blood pressure 109/74 pulse oxing 94% on 4 L. Daily BC 9.7, hemoglobin 14.5, platelet 254, potassium 3.9, BUN 12, creatinine 0.39 blood sugars running from 41 09/01/1947. COVID-19 not detected 11/22: Patient examined on 3 S. complaining of inability to catch breath especially when he starts to fall asleep. Patient is utilizing oxygen at that time. Patient also is complaining of congestion and cough which has worsened compared to yesterday. Patient states that prior to his OR he had cough and congestion similar to what it is today. Patient is scheduled for repeat PCI of RCA tomorrow. Blood sugars range from 171-140 today. Hemoglobin A1c yesterday 12.8. Patient remained afebrile, heart rate 92, respirations 18, blood pressure 155/81, pulse ox 97% on room air. Review Of Systems: Constitutional: No fever, no chills, no night sweats. No weight change. No weakness, fatigue no lethargy. No daytime sleepiness. EENT: No headache. No blurred vision or double vision, no loss of vision. No loss of Hearing, no ringing in the ears, no dizziness. No nasal drainage or congestion. No epistaxis. No sore throat. Lungs: Reports shortness of breath especially prior to falling asleep,no cough, no sputum production. No wheezing. Cardiovascular: denies chest pain, no lower extremity edema. No palpitations. No paroxysmal nocturnal dyspnea. No orthopnea. No lightheadedness or dizziness. No syncopal episodes. Abdominal:denies abdominal discomfort. denies nausea, no vomiting. no diarrhea. No constipation. No bloody or tarry stools. no loss of appetite. Genitourinary: No dysuria, increased frequency, urgency. No urinary retention. Musculoskeletal: No myalgias. No muscle weakness, no gait dysfunction, no frequent falls. No back pain. No neck pain. Integumentary: No wounds, no lesions. No rash or pruritus. No unusual bruising. No change in hair or nails. Neurologic: No aphasia. No facial droop. No change in mentation. No head injury. No headache. No paralysis. No paresthesia. Psychiatric: No depression. Reports anxiety. No mood swings. Endocrine: No abnormal blood sugars. No weight change. No excessive sweating or thirst. Physical examination General Appearance: Alert, cooperative, no distress, 39-year-old appears stated age. Neck HEENT: Supple, no lymphadenopathy, no thyroid enlargement, no carotid bruits. Lungs: Clear to auscultation without crackles or wheezes no rhonchi, no deformity. Chest Wall: Chest wall normal expansion with deep inspiration no tenderness and no deformity was found on exam, no costochondral pain or discomfort. Heart: Regular rate and rhythm, S1, S2 normal, no murmur, rub or gallop. Back: Symmetric, no curvature, ROM normal, no CVA tenderness. Abdomen: Soft, non-tender, no rebound or rigidity, no hepatosplenomegaly. Extremities: Extremities normal, atraumatic, no cyanosis or edema. Pulses: 2+ and symmetric. Skin: Skin color, texture, tugor normal, no rashes or lesions. Neurologic: Alert oriented x3 cranial nerves II through XII intact, no motor deficit, no abnormal balance or gait Assessment and plan 1. Chest pain with Anterior STEMI evolving post-PCI of LAD. Continue aspirin 81 mg, Brilinta 1090 mg by mouth twice a day. Continue with nitro drip to titrate. Echocardiogram results: Severe concentric left ventricular hypert rophy, EF between 35 and 40%, mid anterior LV wall motion is hypokinetic mid anteroseptal LV wall motion is hypokinetic mild mitral regurgitation present, mild tricuspid regurgitation present, borderline pulmonary artery hypertension. 2. Coronary artery disease, circumflex 100% blockage, RCA 80% blockage. As noted above. Patient is scheduled for PCI tomorrow RCA. 3. Uncontrolled diabetes mellitus. Continue Levemir to 30 units at bedtime, NovoLog sliding scale, NovoLog 10 units 3 times a day. Improvement in blood sugars noted. 4. Uncontrolled hypertension. Cozaar 50 mg by mouth daily, carvedilol 12.5 mg by mouth twice a day. One dose of Lasix 20 mg IV push given today we'll evalua te if need additional dosages 5. Hyperlipidemia. Lipitor 20 mg by mouth daily 6. Depression. Continue Cymbalta 60 mg by mouth daily 7. Family history of coronary artery disease. 8. 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 Anxiety. 9. DVT prophylaxis. Continue aspirin and Brilinta 10. GI prophylaxis. Pepcid CODE STATUS: Full code Discharge plan: Patient be admitted for a minimum of 2 nights day Impression and plan of care have been directed as dictated by the signing physician. Melissa Thomson nurse practitioner acting as scribe for signing physician. Objective - Vital Signs Vital signs: Vital Signs Temp 97.9 F 11/22/20 04:00 Pulse 92 11/22/20 04:00 Resp 18 11/22/20 04:00 BP 155/81 11/22/20 04:00 Pulse Ox 97 11/22/20 04:00 Intake & Output 11/21/20 11/22/20 11/22/20 18:59 06:59 18:59 Intake Total 792.650 489.725 240 Output Total 650 Balance 142.650 489.725 240 Weight 119.703 kg 177.5 kg Intake: IV 260 0 0.9 260 0 Intake, IV Titration 32.650 9.725 Amount Nitroglycerin-D5w Pmx 50 32.650 9.725 mg In Dextrose/Water 1 250ml.bag @ Titrate IV . Q0M [facility] Rx#:[id number] Oral 500 480 240 Output: Urine 650 Other: Voiding Method Toilet Urinal # Voids 1 - Labs CBC & Chem 7: 11/21/20 03:47 11/21/20 03:47 Labs: Abnormal Lab Results - Last 24 Hours (Table) 11/21/20 11/21/20 11/21/20 Range/Units 03:47 03:47 12:07 POC Glucose (mg/dL) 286 H (75-99) mg/dL Hemoglobin A1c 12.8 H (4.0-6.0) % LDL Cholesterol, Calc 117 H (0-99) mg/dL HDL Cholesterol 37 L (40-60) mg/dL 11/21/20 11/21/20 11/22/20 Range/Units 17:02 20:02 00:19 POC Glucose (mg/dL) 234 H 208 H 171 H (75-99) mg/dL Hemoglobin A1c (4.0-6.0) % LDL Cholesterol, Calc (0-99) mg/dL HDL Cholesterol (40-60) mg/dL 11/22/20 11/22/20 Range/Units 04:05 08:06 POC Glucose (mg/dL) 199 H 140 H (75-99) mg/dL Hemoglobin A1c (4.0-6.0) % LDL Cholesterol, Calc (0-99) mg/dL HDL Cholesterol (40-60) mg/dL
[2020-11-22 12:03] LABS: Glucose,Whole Blood 169 mg/dL (75-99)
[2020-11-22] MEDS ORDERED: ONDANSETRON 4 MG/2 ML VIAL IVP PRN (12:42)
[2020-11-22 14:01] LABS: Glucose,Whole Blood 200 mg/dL (75-99)
[2020-11-22] MEDS: METOCLOPRAMIDE 5 MG/ML 2 ML VIAL IVP SCH ×2 (14:36→17:26)
[2020-11-22 16:00] LABS: Glucose,Whole Blood 169 mg/dL (75-99)
[2020-11-22] MEDS ORDERED: ALPRAZolam 0.25 MG TAB PO PRN (17:05)
[2020-11-22] MEDS ORDERED: ALPRAZolam 0.5 MG TAB PO PRN (17:05)
[2020-11-22] MEDS ORDERED: SODIUM CHLORIDE 0.9% 1,000 ML in EMPTY BAG 1 BAG IV ONE (17:05)
[2020-11-22] MEDS ORDERED: NITROGLYCERIN SL TABS 0.4 MG TAB SUBLINGUAL PRN (17:05)
--- NOTE | 2020-11-22 17:05 | P.PN ---
Subjective HISTORY OF PRESENTING ILLNESS Patient is a pleasant 39 year old male with history of hypertension, DM2, obesity and family history of CAD. He has been having a cough the last few weeks however started having a sharp chest pain and therefore came to ER. He had associated diaphoresis earlier however this improved. He denies associated SOB. No fevers or chills. Believes his cholesterol has been controlled. His family had FL at early age. Initial EKG showed only minimal ST elevation in V1- V3 wit some reciprocal depressions in I, AVL and therefore repeat was performed a few minutes later which showed evolving anterior ST elevations. 11/21 Patient seen and examined. Patient had left heart catheterization performed yesterday which showed multiple 90 and 95% blockages of the LAD, a distal circumflex leading tone OM 2 100% stenosis, and mid RCA 80% stenosis. Patient underwent long stenting of the proximal to mid LAD however did have persistent ST elevations. His LVEDP was noted to be extremely high at 35 however was also very hypertensive at this time. He was placed on nitroglycerin drip as well as given hydralazine with some improvement in his blood pressures. Today he states he is feeling well. His nitroglycerin drip was weaned off and currently is denying any chest pain or pressure. He initially was somewhat lightheaded when he stood up however is feeling better now. He has been continued on aspirin and Brilinta. No shortness breath. 11/22 Patient seen and examined. Patient states he is feeling well and no chest pain or pressure. Blood pressure is mildly elevated and we will increase losartan and carvedilol. PHYSICAL EXAMINATION Vital signs reviewed. CONSTITUTIONAL: No apparent distress, obese HEENT: Head is normocephalic. Pupils are equal, round. Sclerae anicteric. Mucous membranes of the mouth are moist. No JVD. No carotid bruit. CHEST EXAMINATION: Lungs are clear to auscultation. No chest wall tenderness is noted on palpation or with deep breathing. HEART EXAMINATION: Regular rate and rhythm. S1, S2 heard. No murmurs, gallops or rub. ABDOMEN: Soft, nontender. Positive bowel sounds. EXTREMITIES: 2+ peripheral pulses, no lower extremity edema and no calf tenderness. NEUROLOGIC EXAMINATION: Patient is awake, alert and oriented x 3 ASSESSMENT 1. Anterior STEMI, status post PCI proximal to mid LAD 11/20/2020 2. DM2 3. Obesity 4. HLD 5. Family history of CAD 6. 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 Ischemic cardiomyopathy ejection fraction 35-40% 8. Acute on chronic systolic heart failure, appears euvolemic PLAN Continue dual antiplatelets for 12 months. Increase carvedilol to 25 mg twice a day and losartan 100 mg daily. Echocardiogram shows ejection fraction 35-40%. He currently appears euvolemic. Staged PCI of RCA Monday morning at 7:30. NPO after midnight. Objective - Vital Signs Vital signs: Vital Signs Temp 98.1 F 11/22/20 08:00 Pulse 84 11/22/20 12:00 Resp 20 11/22/20 12:00 BP 137/91 11/22/20 12:00 Pulse Ox 95 11/22/20 12:00 Intake & Output 11/21/20 11/22/20 11/22/20 18:59 06:59 18:59 Intake Total 792.650 489.725 240 Output Total 650 Balance 142.650 489.725 240 Weight 119.703 kg 177.5 kg Intake: IV 260 0 0.9 260 0 Intake, IV Titration 32.650 9.725 Amount Nitroglycerin-D5w Pmx 50 32.650 9.725 mg In Dextrose/Water 1 250ml.bag @ Titrate IV . [facility] Rx#:[id number] Oral 500 480 240 Output: Urine 650 Other: Voiding Method Toilet Urinal # Voids 1 - Labs CBC & Chem 7: 11/21/20 03:47 11/21/20 03:47 Labs: Abnormal Lab Results - Last 24 Hours (Table) 11/21/20 11/21/20 11/22/20 Range/Units 17:02 20:02 00:19 POC Glucose (mg/dL) 234 H 208 H 171 H (75-99) mg/dL 11/22/20 11/22/20 11/22/20 Range/Units 04:05 08:06 12:02 POC Glucose (mg/dL) 199 H 140 H 169 H (75-99) mg/dL 11/22/20 11/22/20 Range/Units 13:54 15:58 POC Glucose (mg/dL) 200 H 169 H (75-99) mg/dL
[2020-11-22 20:30] LABS: Glucose,Whole Blood 111 mg/dL (75-99)
[2020-11-22] MEDS: INSULIN DETEMIR (LEVEMIR) 100 UNIT/ML SYR SQ SCH (21:13)
[2020-11-22 23:13] LABS: Glucose,Whole Blood 191 mg/dL (75-99)
[2020-11-23] MEDS: INSULIN ASPART (NovoLOG) 100 UNIT/ML VIAL SQ SCH ×8 (04:18→20:19)
[2020-11-23 04:22] LABS: Glucose,Whole Blood 186 mg/dL (75-99)
[2020-11-23] MEDS: ATORVASTATIN 40 MG TAB PO SCH (04:43)
[2020-11-23] MEDS: carvediloL 12.5 MG TAB PO SCH ×2 (04:49→16:58)
[2020-11-23] MEDS: METOCLOPRAMIDE 5 MG/ML 2 ML VIAL IVP SCH ×3 (04:49→16:58)
[2020-11-23] MEDS: DULoxetine HCL 60 MG CAPSULE.DR PO SCH (04:50)
[2020-11-23] MEDS: ASPIRIN 81 MG PO SCH (04:50)
[2020-11-23] MEDS: TICAGRELOR 90 MG TAB PO SCH ×2 (04:51→20:18)
[2020-11-23] MEDS: FAMOTIDINE 20 MG/2 ML VIAL IV SCH (04:51)
[2020-11-23] MEDS: LOSARTAN 50 MG TAB PO SCH (04:51)
[2020-11-23] MEDS ORDERED: ATORVASTATIN 80 MG TAB PO ONE (06:00)
[2020-11-23] MEDS ORDERED: HEPARIN SODIUM,PORCINE 10,000 UNIT in SODIUM CHLORIDE 0.9% 1,000 ML IRRIGATION PRN (07:00)
[2020-11-23] MEDS ORDERED: HEPARIN SODIUM,PORCINE 2,500 UNIT in SODIUM CHLORIDE 0.9% 250 ML IRRIGATION PRN (07:00)
[2020-11-23] MEDS ORDERED: IV FLUID CONTINUATION 1,000 ML IV ONE (07:27)
[2020-11-23] MEDS ORDERED: LIDOCAINE 1% INJ 10MG/ML (20 ML MDV) ONE (07:43)
[2020-11-23] MEDS ORDERED: VERAPAMIL 2.5 MG/ML 2 ML AMP ONE (07:43)
[2020-11-23] MEDS ORDERED: fentaNYL (PF) 50 MCG/ML 2 ML AMP ONE (07:43)
[2020-11-23] MEDS ORDERED: MIDAZOLAM 2 MG/2 ML VIAL IV ONE (07:47)
[2020-11-23] MEDS ORDERED: fentaNYL (PF) 50 MCG/ML 2 ML AMP IV ONE (07:47)
[2020-11-23] MEDS ORDERED: LIDOCAINE 1% INJ 10MG/ML (20 ML MDV) SQ ONE (07:49)
[2020-11-23] MEDS ORDERED: VERAPAMIL SYRINGE (5 MG/10 ML) INTRAARTER ONE (07:50)
[2020-11-23] MEDS ORDERED: hydrALAZINE HCL 20 MG/ML 1 ML VIAL ONE (07:51)
[2020-11-23] MEDS ORDERED: HEPARIN SODIUM 1,000 UN/ML (10ML VL) ONE (07:52)
[2020-11-23] MEDS ORDERED: hydrALAZINE HCL 20 MG/ML 1 ML VIAL IV ONE (07:57)
[2020-11-23] MEDS: HEPARIN SODIUM 1,000 UN/ML (10ML VL) IV ONE ×2 (07:57→08:05)
[2020-11-23] MEDS ORDERED: NITROGLYCERIN 1000MCG/10ML SYRINGE INTRACORON ONE (08:08)
[2020-11-23] MEDS ORDERED: IOPAMIDOL-370 125ML BTL INJ ONE (08:20)
--- NOTE | 2020-11-23 08:28 | P.PRCINT ---
Percutaneous Coronary Int. - Percutaneous Coronary Intervention Percutaneous Coronary Intervention: PROCEDURES PERFORMED: Left heart catheterization, bilateral coronary angiography, PCI of the mid RCA with 3.5 x 33 mm Xience BALTA, postdilated with a 4.0 noncompliant balloon INDICATION: STEMI, Staged PCI HISTORY: Patient is a pleasant 39-year-old male with history of diabetes mellitus for approximately 5-6 years, hypertension, obesity and strong family history of coronary artery disease who presented with chest pain and was found to have initial EKG not meeting criteria for STEMI however evolving STEMI with ST elevations in V1 through V3. He had extensive stenting of his LAD and had residual 80% RCA stenosis and distal circumflex 100% stenosis and therefore staged PCI was recommended. CONSENT:I have discussed the risks, benefits and alternative therapies for the above-mentioned procedure and for both sedation/analgesia as well as necessary blood product administration, if indicated, as they pertain to this patient. The patient has indicated understanding and acceptance of the risks and procedures discussed. PROCEDURE: After the risks, benefits and alternatives of the above mentioned procedure explained in detail with the patient, informed consent was obtained. Patient was taken to the catheterization lab and prepped and draped in usual fashion. 1% lidocaine was used to anesthetize the right radial artery. A 6- [place] sheath was placed in the right radial artery using modified Seldinger te [place]nique. Left coronary angiography was performed with a 5-[place] FL 3.5 catheter. A 5-[place] FR5 catheter was inserted into the left ventricle and pressure measurements were obtained. The decision was made to intervene on the LAD. Heparin was given for an ACT greater than 250. The CLS 3.5 guide was selective in the circumflex and therefore a CLS 3.0 guide was used to engage the left main. Balloon angioplasty was performed initially with a 2.5 x 12 mm balloon. The entire proximal to distal LAD was diffusely diseased requiring stenting of the entire segment. Overlapping stents were placed from proximal to distal with a 3.5 x 18 mm, 2.75 x 38 mm, 2.75 x 38 mm and 2.5 x 23 mm Xience BALTA. The proximal portion of the stent was postdilated with a 4.5 x 12 mm noncompliant balloon. There was more distal apical 50% LAD stenosis however felt best treated medically. The distal circumflex stenosis appeared more chronic with EKG changes anteriorly and follow best treated medically. The RCA lesion felt best treated with staged PCI. Preintervention there was PINEDA 1 flow with tandem 95, 90% stenosis and post intervention there was PINEDA 3 flow with 0% stenosis and no dissection. The right radial sheath was removed and a TR band was placed with hemostasis achieved. The patient tolerated the procedure well. Patient was transported back to the post catheterization holding area in stable condition. Patient's chest pain was down to a [address] residual ST elevations however felt mostly related to microvascular dysfunction. Conscious Sedation: Patient was monitored under the direct supervision of vision of myself for conscious sedation using Versed and fentanyl for a total duration of 60 minutes HEMODYNAMICS: Ao 118/78 LV: 92/8, LVEDP 22 SELECTIVE CORONARY ARTERIOGRAPHY: LEFT MAIN: The left main is a large caliber, short vessel which bifurcates into the LAD and circumflex. There is no significant stenosis. LEFT ANTERIOR DESCENDING CORONARY ARTERY: LAD is a large caliber vessel which wraps around to the apex. There is a patent proximal to mid LAD stent which is patent. LEFT CIRCUMFLEX CORONARY ARTERY: Left circumflex is a moderate caliber vessel with mid 30% stenosis. After a moderate caliber OM 1, the circumflex is 100% occluded with faint left to left collaterals to an OM2. OM1 has a 50-60% stenosis RIGHT CORONARY ARTERY: The right coronary artery is a large caliber vessel which gives off a PDA and PLV branch and is the dominant vessel. There is a mid 80% RCA stenosis. FINAL IMPRESSION: 1. Coronary artery disease as described above including distal circumflex 100% stenosis, OM1 50-60% stenosis and mid RCA 80% stenosis 2. Patent LAD stent 3. Status post successful staged PCI of mid RCA with 3.5 x 33 mm Xience BALTA, postdilated with a 4.0 noncompliant balloon PLAN: 1. Aggressive risk factor modification per most recent ACC/AHA guidelines. 2. Continue dual antiplatelets for 12 months.
[2020-11-23] MEDS ORDERED: ZOLPIDEM 5 MG TAB PO PRN (08:31)
[2020-11-23] MEDS ORDERED: MAG HYDROX/AL HYDROX/SIMETH 30 ML CUP PO PRN (08:31)
[2020-11-23] MEDS ORDERED: ATROPINE SULFATE 0.1 MG/ML 10ML SYRINGE IV PRN (08:31)
[2020-11-23] MEDS ORDERED: NITROGLYCERIN SL TABS 0.4 MG TAB SUBLINGUAL PRN (08:31)
[2020-11-23] MEDS ORDERED: RX INFO: IV CONTRAST WAS GIVEN 1 EACH MISC MISCELLANE PRN (08:31)
--- NOTE | 2020-11-23 08:41 | P.PRCINT ---
Percutaneous Coronary Int. - Percutaneous Coronary Intervention Percutaneous Coronary Intervention: PROCEDURES PERFORMED: Left heart catheterization, bilateral coronary angiography, PCI of the mid RCA with 3.5 x 33 mm Xience BALTA, postdilated with a 4.0 noncompliant balloon INDICATION: STEMI, Staged PCI HISTORY: Patient is a pleasant 39-year-old male with history of diabetes mellitus for approximately 5-6 years, hypertension, obesity and strong family history of coronary artery disease who presented with chest pain and was found to have initial EKG not meeting criteria for STEMI however evolving STEMI with ST elevations in V1 through V3. He had extensive stenting of his LAD and had residual 80% RCA stenosis and distal circumflex 100% stenosis and therefore staged PCI was recommended. CONSENT:I have discussed the risks, benefits and alternative therapies for the above-mentioned procedure and for both sedation/analgesia as well as necessary blood product administration, if indicated, as they pertain to this patient. The patient has indicated understanding and acceptance of the risks and procedures discussed. PROCEDURE: After the risks, benefits and alternatives of the above mentioned procedure explained in detail with the patient, informed consent was obtained. Patient was taken to the catheterization lab and prepped and draped in usual fashion. 1% lidocaine was used to anesthetize the right radial artery. A 6- Citizen [place] sheath was placed in the right radial artery using modified Seldinger te chnique. Left coronary angiography was performed with a 5-Citizen [place] FL 3.5 catheter. A 5-[place]izen [place] pigtial catheter was inserted into the left ventricle and pressure measurements were obtained. The decision was made to intervene on the RCA. Heparin was given for an ACT greater than 250. A 6Fr [place] 1.0 guide was used to engage the RCA. Balloon angioplasty was performed initially with a 2.5 x 20 mm balloon. Next a 3.5 x 33mm Xience BALTA was placed in the mid RCA. The stent was post dilated with a 4.0 NC balloon. Preintervention there was PINEDA 3 flow with 80% stenosis and post intervention there was PINEDA 3 flow with 0% stenosis and no dissection. The right radial sheath was removed and a TR band was placed with hemostasis achieved. The patient tolerated the procedure well. Patient was transported back to the post catheterization holding area in stable condition. Conscious Sedation: Patient was monitored under the direct supervision of myself for conscious sedation using Versed and fentanyl for a total duration of 38 minutes HEMODYNAMICS: Ao 118/78 LV: 92/8, LVEDP 22 SELECTIVE CORONARY ARTERIOGRAPHY: LEFT MAIN: The left main is a large caliber, short vessel which bifurcates into the LAD and circumflex. There is no significant stenosis. LEFT ANTERIOR DESCENDING CORONARY ARTERY: LAD is a large caliber vessel which wraps around to the apex. There is a patent proximal to mid LAD stent which is patent. LEFT CIRCUMFLEX CORONARY ARTERY: Left circumflex is a moderate caliber vessel with mid 30% stenosis. After a moderate caliber OM 1, the circumflex is 100% occluded with faint left to left collaterals to an OM2. OM1 has a 50-60% stenosis RIGHT CORONARY ARTERY: The right coronary artery is a large caliber vessel which gives off a PDA and PLV branch and is the dominant vessel. There is a mid 80% RCA stenosis. FINAL IMPRESSION: 1. Coronary artery disease as described above including distal circumflex 100% stenosis, OM1 50-60% stenosis and mid RCA 80% stenosis 2. Patent LAD stent 3. Status post successful staged PCI of mid RCA with 3.5 x 33 mm Xience BALTA, postdilated with a 4.0 noncompliant balloon PLAN: 1. Aggressive risk factor modification per most recent ACC/AHA guidelines. 2. Continue dual antiplatelets for 12 months.
[2020-11-23] MEDS: ATORVASTATIN 80 MG TAB PO SCH (09:03)
[2020-11-23] MEDS: SODIUM CHLORIDE 0.9% 1,000 ML IV SCH (09:05)
[2020-11-23 09:38] LABS: Basophils % (A) 0 %; Eosinophils # (A) 0.1 k/uL (0-0.7); Eosinophils % (A) 2 %; HCT 40.4 % (39.0-53.0); Lymphocytes # (A) 1.9 k/uL (1.0-4.8); Lymphocytes % (A) 20 %; MCH 30.8 pg (25.0-35.0); MCHC 34.7 g/dL (31.0-37.0); MCV 88.6 fL (80.0-100.0); Mean Platelet Volume 7.7; Monocytes # (A) 0.7 k/uL (0-1.0); Monocytes % (A) 7 %; Neutrophils # (A) 6.2 k/uL (1.3-7.7); Neutrophils % (A) 69 %; Platelet Count 230 k/uL (150-450); RBC 4.56 m/uL (4.30-5.90); RDW 12.8 % (11.5-15.5); WBC 9.1 k/uL (3.8-10.6)
[2020-11-23 09:47] LABS: African American GFR (CKD) >90 (>60 ml/min/1.73 sqM); Anion Gap 3 mmol/L; Blood Urea Nitrogen 15 mg/dL (9-20); Calcium 8.7 mg/dL (8.4-10.2); Carbon Dioxide 25 mmol/L (22-30); Chloride 107 mmol/L (98-107); Glucose 183 mg/dL (74-99); Non-African American GFR(CKD) >90 (>60 ml/min/1.73 sqM); Potassium 3.3 mmol/L (3.5-5.1); Sodium 135 mmol/L (137-145)
[2020-11-23 12:21] LABS: Glucose,Whole Blood 256 mg/dL (75-99)
--- NOTE | 2020-11-23 12:48 | P.PN ---
Subjective Progress Note Date: 11/23/20 Subjective Progress Note Date: 11/22/20 History of present illness This is a 39-year-old patient of Dr. Anne with a past medical history si gnificant for diabetes, hypertension, family history of coronary artery disease. Presented to the emergency room for chest pain. Patient stated that he developed chest pain around 10:00 yesterday morning. Patient describes the pain as a burning sensation with intermittent stabbing pain. He states the pain was constant once he woke up. He did take a baby aspirin while he was at home. Previously patient stated that he was having some cough congestion for the past several days when he initially woke up he thought that was what was related from. He was coughing up pink tinged fluid which stopped approximately 3 days ago. Patient denies any history of lung disease he has been a lifelong n onsmoker. Patient is found to have anterior STEMI evolving. Denies any palpitations, shortness of breath, diaphoresis, or lightheadedness. Circumflex diabetes for the last 5 years. He has been uncontrolled throughout the entire time. Hemoglobin A1c was 14.1. Patient states that he takes Levemir and a oral agent at home however he has not been able to keep his blood sugars under control. At this time patient is resting comfortably and ICU currently on a nitro drip. Blood sugar 257. He received 20 units of Levemir and sliding scale and 10 units of NovoLog. Patient is complaining of some gastric discomfort and chest discomfort this time. Patient is postop PCI of the LAD with 4 stents. Patient also had a 100% blockage to the circumflex and 80% blockage to the RCA. He is currently on anticoagulant medications. He remained afebrile, heart rate 97, respirations 18, blood pressure 109/74 pulse oxing 94% on 4 L. Daily BC 9.7, hemoglobin 14.5, platelet 254, potassium 3.9, BUN 12, creatinine 0.39 blood sugars running from 41 09/01/1947. COVID-19 not detected 11/22: Patient examined on 3 S. complaining of inability to catch breath especially when he starts to fall asleep. Patient is utilizing oxygen at that time. Patient also is complaining of congestion and cough which has worsened compared to yesterday. Patient states that prior to his [place] he had cough and congestion similar to what it is today. Patient is scheduled for repeat PCI of RCA tomorrow. Blood sugars range from 171-140 today. Hemoglobin A1c yesterday 12.8. Patient remained afebrile, heart rate 92, respirations 18, blood pressure 155/81, pulse ox 97% on room air. 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 Review Of Systems: Constitutional: No fever, no chills, no night sweats. No weight change. No weakness, fatigue no lethargy. No daytime sleepiness. EENT: No headache. No blurred vision or double vision, no loss of vision. No loss of Hearing, no ringing in the ears, no dizziness. No nasal drainage or congestion. No epistaxis. No sore throat. Lungs: Reports shortness of breath especially prior to falling asleep,no cough, no sputum production. No wheezing. Cardiovascular: denies chest pain, no lower extremity edema. No palpitations. No paroxysmal nocturnal dyspnea. No orthopnea. No lightheadedness or diz ziness. No syncopal episodes. Abdominal:denies abdominal discomfort. denies nausea, no vomiting. no diarrhea. No constipation. No bloody or tarry stools. no loss of appetite. Genitourinary: No dysuria, increased frequency, urgency. No urinary retention. Musculoskeletal: No myalgias. No muscle weakness, no gait dysfunction, no frequent falls. No back pain. No neck pain. Integumentary: No wounds, no lesions. No rash or pruritus. No unusual bruising. No change in hair or nails. Neurologic: No aphasia. No facial droop. No change in mentation. No head injury. No headache. No paralysis. No paresthesia. Psychiatric: No depression. Reports anxiety. No mood swings. Endocrine: No abnormal blood sugars. No weight change. No excessive sweating or thirst. Physical examination General Appearance: Alert, cooperative, no distress, 39-year-old appears stated age. Neck HEENT: Supple, no lymphadenopathy, no thyroid enlargement, no carotid bruits. Lungs: Clear to auscultation without crackles or wheezes no rhonchi, no deformity. Chest Wall: Chest wall normal expansion with deep inspiration no tenderness and no deformity was found on exam, no costochondral pain or discomfort. Heart: Regular rate and rhythm, S1, S2 normal, no murmur, rub or gallop. Back: Symmetric, no curvature, ROM normal, no CVA tenderness. Abdomen: Soft, non-tender, no rebound or rigidity, no hepatosplenomegaly. Extremities: Extremities normal, atraumatic, no cyanosis or edema. Pulses: 2+ and symmetric. Skin: Skin color, texture, tugor normal, no rashes or lesions. Neurologic: Alert oriented x3 cranial nerves II through XII intact, no motor deficit, no abnormal balance or gait Assessment and plan 1. Chest pain with Anterior STEMI evolving post-PCI of LAD. Continue aspirin 81 mg, Brilinta 90 mg by mouth twice a day. Continue with nitro drip to titrate. 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 2. Coronary artery disease, circumflex 100% blockage, RCA 80% blockage. As noted above. PCI of the RCA will be done today. 3. Uncontrolled diabetes mellitus. Titrate Levemir up to 35 units daily and NovoLog to 12 units before meals meals plus sliding scales. 4. Uncontrolled hypertension. Cozaar 50 mg by mouth daily, carvedilol 12.5 mg by mouth twice a day. One dose of Lasix 20 mg IV push given today we'll evaluate if need additional dosages 5. Hyperlipidemia. Lipitor 20 mg by mouth daily 6. Depression. Continue Cymbalta 60 mg by mouth daily 7. Family history of coronary artery disease. 8. 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 Anxiety. 9. DVT prophylaxis. Continue aspirin and Brilinta early mobilization and knee- high KENN hose 10. GI prophylaxis. Pepcid CODE STATUS: Full code Discharge planning: Possible discharge home tomorrow if patient is stable. Objective - Vital Signs Vital signs: Vital Signs Temp 98.4 F 11/23/20 04:00 Pulse 89 11/23/20 04:00 Resp 18 11/23/20 04:00 BP 126/80 11/23/20 04:00 Pulse Ox 98 11/23/20 04:00 Intake & Output 11/22/20 11/22/20 11/23/20 06:59 18:59 06:59 Intake Total 489.725 240 540 Balance 489.725 240 540 Weight 177.5 kg Intake: IV 0 0.9 0 Intake, IV Titration 9.725 Amount Nitroglycerin-D5w Pmx 50 9.725 mg In Dextrose/Water 1 250ml.bag @ Titrate IV . Q0M [facility] Rx#:[id number] Oral 480 240 540 Other: Voiding Method Toilet Toilet Urinal # Voids 3 1 - Labs CBC & Chem 7: 11/23/20 09:14 11/23/20 09:14 Labs: Abnormal Lab Results - Last 24 Hours (Table) 11/22/20 11/22/20 11/22/20 Range/Units 08:06 12:02 13:54 POC Glucose (mg/dL) 140 H 169 H 200 H (75-99) mg/dL 11/22/20 11/22/20 11/22/20 Range/Units 15:58 20:29 23:09 POC Glucose (mg/dL) 169 H 111 H 191 H (75-99) mg/dL 11/23/20 Range/Units 04:17 POC Glucose (mg/dL) 186 H (75-99) mg/dL
[2020-11-23 17:16] LABS: Glucose,Whole Blood 128 mg/dL (75-99)
[2020-11-23] MEDS: POTASSIUM CHLORIDE ER 20 MEQ TAB.ER PO SCH (18:13)
[2020-11-23 20:24] LABS: Glucose,Whole Blood 155 mg/dL (75-99)
[2020-11-23] MEDS ORDERED: INSULIN DETEMIR (LEVEMIR) 100 UNIT/ML SYR SQ SCH (21:00)
[2020-11-24 00:17] LABS: Glucose,Whole Blood 210 mg/dL (75-99)
[2020-11-24] MEDS: INSULIN ASPART (NovoLOG) 100 UNIT/ML VIAL SQ SCH ×7 (00:19→13:37)
[2020-11-24] MEDS: METOCLOPRAMIDE 5 MG/ML 2 ML VIAL IVP SCH ×2 (06:41→13:36)
[2020-11-24] MEDS: carvediloL 12.5 MG TAB PO SCH (06:41)
[2020-11-24 08:17] LABS: Glucose,Whole Blood 133 mg/dL (75-99)
[2020-11-24 08:18] LABS: Glucose,Whole Blood 120 mg/dL (75-99)
[2020-11-24 08:20] LABS: Glucose,Whole Blood 144 mg/dL (75-99)
[2020-11-24] MEDS: LOSARTAN 50 MG TAB PO SCH (08:32)
[2020-11-24] MEDS: DULoxetine HCL 60 MG CAPSULE.DR PO SCH (08:32)
[2020-11-24] MEDS: TICAGRELOR 90 MG TAB PO SCH (08:32)
[2020-11-24] MEDS: ATORVASTATIN 80 MG TAB PO SCH (08:32)
[2020-11-24] MEDS: ASPIRIN 81 MG PO SCH (08:32)
[2020-11-24] MEDS: SODIUM CHLORIDE 0.9% 1,000 ML IV SCH (08:34)
[2020-11-24] MEDS ORDERED: FAMOTIDINE 20 MG TAB PO SCH (09:00)
[2020-11-24 09:51] LABS: ALT 85 U/L (4-49); AST 89 U/L (17-59); African American GFR (CKD) >90 (>60 ml/min/1.73 sqM); Albumin 3.1 g/dL (3.5-5.0); Alkaline Phosphatase 128 U/L (38-126); Anion Gap 6 mmol/L; Blood Urea Nitrogen 15 mg/dL (9-20); Calcium 9.1 mg/dL (8.4-10.2); Carbon Dioxide 26 mmol/L (22-30); Chloride 106 mmol/L (98-107); Glucose 138 mg/dL (74-99); Non-African American GFR(CKD) >90 (>60 ml/min/1.73 sqM); Sodium 138 mmol/L (137-145); Total Bilirubin 0.8 mg/dL (0.2-1.3); Total Protein 5.6 g/dL (6.3-8.2)
[2020-11-24 11:34] VITALS: RESP 16
[2020-11-24 12:08] LABS: Glucose,Whole Blood 143 mg/dL (75-99)
--- NOTE | 2020-11-24 12:41 | P.DS ---
Providers Date of admission: 11/20/20 17:12 Attending physician: Eriberto Anne MD Consults: 11/20/20 17:12 Consult Physician Stat Consulting Provider: Viky Perry Consult Reason/Comments: STEMI ACTIVATION COMPLETE Do you want consulting provider notified?: Yes 11/20/20 18:36 Consult Physician Routine Consulting Provider: Viky Perry Consult Reason/Comments: Post Interventional patient Do you want consulting provider notified?: Already Contacted 11/23/20 08:31 Consult Physician Routine Consulting Provider: [facility] [place] Consult Reason/Comments: Post Interventional patient Do you want consulting provider notified?: Already Contacted Primary care physician: Eriberto Anne MD Hospital Course: Subjective Progress Note Date: 11/22/20 History of present illness This is a 39-year-old patient of Dr. Anne with a past medical history significant for diabetes, hypertension, family history of coronary artery disease. Presented to the emergency room for chest pain. Patient stated that he developed chest pain around 10:00 yesterday morning. Patient describes the pain as a burning sensation with intermittent stabbing pain. He states the pain was constant once he woke up. He did take a baby aspirin while he was at home. Previously patient stated that he was having some cough congestion for the past several days when he initially woke up he thought that was what was related from. He was coughing up pink tinged fluid which stopped approximately 3 days ago. Patient denies any history of lung disease he has been a lifelong nonsmoker. Patient is found to have anterior STEMI evolving. Denies any palpitations, shortness of breath, diaphoresis, or lightheadedness. Circumflex diabetes for the last 5 years. He has been uncontrolled throughout the entire time. Hemoglobin A1c was 14.1. Patient states that he takes Levemir and a oral agent at home however he has not been able to keep his blood sugars under control. At this time patient is resting comfortably and ICU currently on a nitro drip. Blood sugar 257. He received 20 units of Levemir and sliding scale and 10 units of NovoLog. Patient is complaining of some gastric discomfort and chest discomfort this time. Patient is postop PCI of the LAD with 4 stents. Patient also had a 100% blockage to the circumflex and 80% blockage to the RCA. He is currently on anticoagulant medications. He remained afebrile, heart rate 97, respirations 18, blood pressure 109/74 pulse oxing 94% on 4 L. Daily BC 9.7, hemoglobin 14.5, platelet 254, potassium 3.9, BUN 12, creatinine 0.39 blood sugars running from 41 09/01/1947. COVID-19 not detected 11/22: Patient examined on 3 S. complaining of inability to catch breath especial ly when he starts to fall asleep. Patient is utilizing oxygen at that time. Patient also is complaining of congestion and cough which has worsened compared to yesterday. Patient states that prior to his [place] he had cough and congestion similar to what it is today. Patient is scheduled for repeat PCI of RCA tomorrow. Blood sugars range from 171-140 today. Hemoglobin A1c yesterday 12.8. Patient remained afebrile, heart rate 92, respirations 18, blood pressure 155/81, pulse ox 97% on room air. Patient is going back to the [employer] [facility] for another angioplasty and stent of the right coronary artery, we'll continue to titrate diabetic management continue to finalize patient medical management and prepare few for discharge for tomorrow. Review Of Systems: Constitutional: No fever, no chills, no night sweats. No weight change. No weakness, fatigue no lethargy. No daytime sleepiness. EENT: No headache. No blurred vision or double vision, no loss of vision. No loss of Hearing, no ringing in the ears, no dizziness. No nasal drainage or congestion. No epistaxis. No sore throat. Lungs: Reports shortness of breath especially prior to falling asleep,no cough, no sputum production. No wheezing. Cardiovascular: denies chest pain, no lower extremity edema. No palpitations. No paroxysmal nocturnal dyspnea. No orthopnea. No lightheadedness or dizziness. No syncopal episodes. Abdominal:denies abdominal discomfort. denies nausea, no vomiting. no diarrhea. No constipation. No bloody or tarry stools. no loss of appetite. Genitourinary: No dysuria, increased frequency, urgency. No urinary retention. Musculoskeletal: No myalgias. No muscle weakness, no gait dysfunction, no frequent falls. No back pain. No neck pain. Integumentary: No wounds, no lesions. No rash or pruritus. No unusual bruising. No change in hair or nails. Neurologic: No aphasia. No facial droop. No change in mentation. No head injury. No headache. No paralysis. No paresthesia. Psychiatric: No depression. Reports anxiety. No mood swings. Endocrine: No abnormal blood sugars. No weight change. No excessive sweating or thirst. Physical examination General Appearance: Alert, cooperative, no distress, 39-year-old appears stated age. Neck HEENT: Supple, no lymphadenopathy, no thyroid enlargement, no carotid bruits. Lungs: Clear to auscultation without crackles or wheezes no rhonchi, no deformity. Chest Wall: Chest wall normal expansion with deep inspiration no tenderness and no deformity was found on exam, no costochondral pain or discomfort. Heart: Regular rate and rhythm, S1, S2 normal, no murmur, rub or gallop. Back: Symmetric, no curvature, ROM normal, no CVA tenderness. Abdomen: Soft, non-tender, no rebound or rigidity, no hepatosplenomegaly. Extremities: Extremities normal, atraumatic, no cyanosis or edema. Pulses: 2+ and symmetric. Skin: Skin color, texture, tugor normal, no rashes or lesions. Neurologic: Alert oriented x3 cranial nerves II through XII intact, no motor deficit, no abnormal balance or gait Assessment and plan 1. Chest pain with Anterior STEMI evolving post-PCI of LAD. Continue aspirin 81 mg, Brilinta 90 mg by mouth twice a day. Continue with nitro drip to titrate. 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 2. Coronary artery disease, large segment of the LAD with 3 stent placement was successful the first day. circumflex 100% blockage, RCA 80% blockage. As noted above. PCI of the RCA was done day before yesterday successfully patient has done very well so far with no complication side effect. 3. Uncontrolled diabetes mellitus. Titrate Levemir up to 35 units daily and NovoLog to 12 units before meals meals plus sliding scales. 4. Uncontrolled hypertension. Cozaar 50 mg by mouth daily, carvedilol 12.5 mg by mouth twice a day. One dose of Lasix 20 mg IV push given today we'll evaluate if need additional dosages 5. Hyperlipidemia. Lipitor 20 mg by mouth daily 6. Depression. Continue Cymbalta 60 mg by mouth daily 7. Family history of coronary artery disease. 8. 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 Anxiety. 9. DVT prophylaxis. Continue aspirin and Brilinta early mobilization and knee- high KENN hose 10. GI prophylaxis. Pepcid Patient is very stable after the last angioplasty stent not having any chest pain or angina symptoms. Blood pressures under better control so far patient blood sugar has been improved. Has been cleared by cardiology for discharge today is going to take sometimes off work till he sees a cardiology in the office next week and he is going back to primary care physician sometime next few days. Patient Condition at Discharge: Serious Plan - Discharge Summary Discharge Rx Participant: No New Discharge Prescriptions: New INSULIN ASPART (NovoLOG) [NovoLOG (formulary)] 12 unit SQ AC-TID #1 vial Famotidine [Pepcid] 20 mg PO DAILY #30 tab Ticagrelor [Brilinta] 90 mg PO BID #60 tab carvediloL [Coreg*] 25 mg PO BID-W/MEALS #60 tab Losartan [Cozaar] 100 mg PO DAILY #30 tab Atorvastatin [Lipitor] 80 mg PO DAILY #30 tab Nitroglycerin Sl Tabs [Nitrostat] 0.4 mg SUBLINGUAL Q5M PRN #25 tab PRN Reason: Chest Pain Continue DULoxetine HCL [Cymbalta] 60 mg PO DAILY Albuterol Sulfate [Proair Hfa] 2 puff INHALATION RT-Q4H PRN PRN Reason: Shortness Of Breath Aspirin EC [Ecotrin Low Dose] 81 mg PO DAILY Glipizide (Unknown Strength) 1 dose PO DIRECTED metFORMIN HCL [Glucophage] 1,000 mg PO BID #0 Changed Insulin Detemir (Levemir) [Levemir] 35 unit SQ DAILY #0 lisinopriL [Zestril] 20 mg PO HS #0 Discontinued hydrALAZINE HCL [Apresoline] 50 mg PO BID Atorvastatin Calcium [Lipitor] 10 mg PO DAILY Discharge Medication List Albuterol Sulfate [Proair Hfa] 2 puff INHALATION RT-Q4H PRN 11/20/20 [History] Aspirin EC [Ecotrin Low Dose] 81 mg PO DAILY 11/20/20 [History] DULoxetine HCL [Cymbalta] 60 mg PO DAILY 11/20/20 [History] Glipizide (Unknown Strength) 1 dose PO DIRECTED 11/20/20 [History] Atorvastatin [Lipitor] 80 mg PO DAILY #30 tab 11/24/20 [Rx] Famotidine [Pepcid] 20 mg PO DAILY #30 tab 11/24/20 [Rx] INSULIN ASPART (NovoLOG) [NovoLOG (formulary)] 12 unit SQ AC-TID #1 vial 11/24/20 [Rx] Insulin Detemir (Levemir) [Levemir] 35 unit SQ DAILY #0 11/24/20 [Rx] Losartan [Cozaar] 100 mg PO DAILY #30 tab 11/24/20 [Rx] Nitroglycerin Sl Tabs [Nitrostat] 0.4 mg SUBLINGUAL Q5M PRN #25 tab 11/24/20 [Rx] Ticagrelor [Brilinta] 90 mg PO BID #60 tab 11/24/20 [Rx] carvediloL [Coreg*] 25 mg PO BID-W/MEALS #60 tab 11/24/20 [Rx] lisinopriL [Zestril] 20 mg PO HS #0 11/24/20 [Rx] metFORMIN HCL [Glucophage] 1,000 mg PO BID #0 11/24/20 [Rx] Follow up Appointment(s)/Referral(s): Eriberto Anne MD [Primary Care Provider] - 1-2 days Cheikh Abad DO [STAFF PHYSICIAN] - 1 Week (Spoke with Zaynab. She states she will call the patient today with a 1 week follow up apt. ) Patient Instructions/Handouts: Heart Attack (DC), Chest Pain (ED), Heart Healthy Diet (DC) Discharge Disposition: HOME SELF-CARE
--- NOTE | 2020-11-24 14:45 | P.PN ---
Subjective Patient is a pleasant 39 year old male with history of hypertension, DM2, obesity and family history of CAD. He has been having a cough the last few weeks however started having a sharp chest pain and therefore came to ER. He had associated diaphoresis earlier however this improved. His family had NH at early age. Initial EKG showed only minimal ST elevation in V1-V3 wit some reciprocal depressions in I, AVL and therefore repeat was performed a few minutes later which showed evolving anterior ST elevations. 11/20/20:Patient had left heart catheterization performed yesterday which showed multiple 90 and 95% blockages of the LAD, a distal circumflex leading tone OM 2 100% stenosis, and mid RCA 80% stenosis. Patient underwent long stenting of the proximal to mid LAD however did have persistent ST elevations. He was placed on nitroglycerin drip as well as given hydralazine with some improvement in his blood pressures. 11/21/20:Echocardiogram left ventricular systolic function is moderately impaired EF 2035-40%, mid inferior LV wall motion is hypokinetic, mid anterior septal LV wall motion is hypokinetic, mild mitral regurgitation, mild tricuspid regurgitation 11/23: Patient underwent cardiac catheterization with Dr. Abad on 11/23/20 s/p PCI of mid RCA with 3.5 x 33 mm Xience BALTA, postdilated with a 4.0 noncompliant balloon 11/24/20: Patient seen and examined at bedside, no acute distress. Right radial cardiac cath site clean dry and intact open to air no hematoma. Patient did have an episode of burning chest pain after eating which resolved with Maalox. Blood pressure 132/89, heart rate 83, afebrile, maintaining oxygen saturation 96% on room air. Labs reviewed, sodium 138, potassium 4.0, serum creatinine 0.49, AST 89, PLT 85, alkaline phosphatase 128. Patient currently being maintained on aspirin 81 mg daily, atorvastatin 80 mg daily, carvedilol 25 mg twice a day, losartan 100 mg daily, Brilinta 90 mg twice a day GENERAL: Well-appearing, well-nourished and in no acute distress. NECK: Supple without JVD or thyromegaly. LUNGS: Breath sounds clear to auscultation bilaterally. Respiration equal and unlabored. No wheezes, rales or rhonchi. HEART: Regular rate and rhythm without murmurs, rubs or gallops. S1 and S2 heard. EXTREMITIES: Normal range of motion, no edema. No clubbing or cyanosis. Peripheral pulses intact. Right radial site- clean, dry, no hematoma 2+ pulses ASSESSMENT: Anterior STEMI status post PCI proximal to mid LAD 11/20/20, s/p PCI mid RCA on 11/23/20 Coronary artery disease Ischemic cardiomyopathy ejection fraction 35-40% Acute on chronic systolic heart failure, appears euvolemic Type 2 Diabetes Obesity BMI 32 Dyslipidemia Family history of CAD PLAN: Continue dual antiplatelets for 12 months. Continue carvedilol to 25 mg twice a day and losartan 100 mg daily Continue statin From cardiology standpoint, patient is stable for discharge home. Patient to follow up with Dr. Abad in one week in the office. Objective - Vital Signs Vital signs: Vital Signs Temp 97.6 F 11/24/20 07:25 Pulse 83 11/24/20 07:25 Resp 16 11/24/20 07:25 BP 132/89 11/24/20 07:25 Pulse Ox 96 11/24/20 07:25 Intake & Output 11/23/20 11/24/20 11/24/20 18:59 06:59 18:59 Intake Total 1800 600 250 Output Total 600 Balance 1200 600 250 Weight 117.6 kg Intake: IV 1200 10 0.9 1000 Invasive Line 2 10 Oral 600 600 240 Output: Urine 600 Other: Voiding Method Toilet Toilet Urinal Urinal # Voids 2 - Labs CBC & Chem 7: 11/23/20 09:14 11/24/20 08:27 Labs: Abnormal Lab Results - Last 24 Hours (Table) 11/23/20 11/23/20 11/24/20 Range/Units 16:54 20:12 00:15 Creatinine (0.66-1.25) mg/dL Glucose (74-99) mg/dL POC Glucose (mg/dL) 128 H 155 H 210 H (75-99) mg/dL AST (17-59) U/L ALT (4-49) U/L Alkaline Phosphatase (38-126) U/L Total Protein (6.3-8.2) g/dL Albumin (3.5-5.0) g/dL 11/24/20 11/24/20 11/24/20 Range/Units 04:06 06:30 08:13 Creatinine (0.66-1.25) mg/dL Glucose (74-99) mg/dL POC Glucose (mg/dL) 133 H 120 H 144 H (75-99) mg/dL AST (17-59) U/L ALT (4-49) U/L Alkaline Phosphatase (38-126) U/L Total Protein (6.3-8.2) g/dL Albumin (3.5-5.0) g/dL 11/24/20 11/24/20 Range/Units 08:27 12:03 Creatinine 0.49 L (0.66-1.25) mg/dL Glucose 138 H (74-99) mg/dL POC Glucose (mg/dL) 143 H (75-99) mg/dL AST 89 H (17-59) U/L ALT 85 H (4-49) U/L Alkaline Phosphatase 128 H (38-126) U/L Total Protein 5.6 L (6.3-8.2) g/dL Albumin 3.1 L (3.5-5.0) g/dL
[2020-11-24 16:14] VITALS: BP 103/69; PULSE 90; TEMP 97.4
== END 2020-11-24 17:04 | disposition home or self-care (01) | DRG 246 ==
LOC: EC 16:08 → 2SICU 17:12 → 3SCARD 11-22 01:59
PROVIDERS: ADMIT Internal Medicine; ATTEND Internal Medicine
PROC: B2111ZZ Fluoroscopy of Multiple Coronary Arteries using Low Osmolar Contrast (ICD-10-PCS; principal; 2020-11-20 17:10)
PROC: 4A023N7 Measurement of Cardiac Sampling and Pressure, Left Heart, Percutaneous Approach (ICD-10-PCS; principal; 2020-11-20 17:10)
PROC: 027037Z Dilation of Coronary Artery, One Artery with Four or More Drug-eluting Intraluminal Devices, Percutaneous Approach (ICD-10-PCS; principal; 2020-11-20 17:10)
PROC: 4A023N7 Measurement of Cardiac Sampling and Pressure, Left Heart, Percutaneous Approach (ICD-10-PCS; 2020-11-23)
PROC: B2111ZZ Fluoroscopy of Multiple Coronary Arteries using Low Osmolar Contrast (ICD-10-PCS; 2020-11-23)
PROC: 027034Z Dilation of Coronary Artery, One Artery with Drug-eluting Intraluminal Device, Percutaneous Approach (ICD-10-PCS; 2020-11-23)
DX: I21.09 ST elevation (STEMI) myocardial infarction involving other coronary artery of anterior wall (principal); I50.23 Acute on chronic systolic (congestive) heart failure; I27.21 Secondary pulmonary arterial hypertension; E11.40 Type 2 diabetes mellitus with diabetic neuropathy, unspecified; I11.0 Hypertensive heart disease with heart failure; E11.65 Type 2 diabetes mellitus with hyperglycemia; Z79.4 Long term (current) use of insulin; I25.5 Ischemic cardiomyopathy; Z20.822 Contact with and (suspected) exposure to COVID-19; I08.1 Rheumatic disorders of both mitral and tricuspid valves; E78.5 Hyperlipidemia, unspecified; I25.10 Atherosclerotic heart disease of native coronary artery without angina pectoris; F32.9 Major depressive disorder, single episode, unspecified; F41.9 Anxiety disorder, unspecified; E66.9 Obesity, unspecified; Z68.32 Body mass index [BMI] 32.0-32.9, adult; Z79.82 Long term (current) use of aspirin; Z79.899 Other long term (current) drug therapy; Z87.19 Personal history of other diseases of the digestive system; Z87.39 Personal history of other diseases of the musculoskeletal system and connective tissue; Z71.3 Dietary counseling and surveillance; Z98.890 Other specified postprocedural states; Z82.49 Family history of ischemic heart disease and other diseases of the circulatory system; Z83.3 Family history of diabetes mellitus
CPT/HCPCS: 36415; 71045; 80048; 80053; 80061; 83036; 83690; 83735; 83880; 84484; 85025; 85347; 85379; 85610; 85730; 87635; 93005; 93306; 93458; 94760; 96374; 96375; 99285

== ENCOUNTER 2021-02-14 22:32 | Observation (INO) | payer OTHER ==
[2021-02-14] MEDS ORDERED: SODIUM CHLORIDE 0.9% 1,000 ML IV STA (23:03)
[2021-02-14 23:40] LABS: Basophils # (A) 0.1 k/uL (0-0.2); Basophils % (A) 1 %; Eosinophils # (A) 0.2 k/uL (0-0.7); Eosinophils % (A) 4 %; HCT 39.9 % (39.0-53.0); HGB 13.3 gm/dL (13.0-17.5); Lymphocytes # (A) 2.1 k/uL (1.0-4.8); Lymphocytes % (A) 33 %; MCH 29.5 pg (25.0-35.0); MCHC 33.5 g/dL (31.0-37.0); MCV 88.2 fL (80.0-100.0); Mean Platelet Volume 7.5; Monocytes # (A) 0.4 k/uL (0-1.0); Monocytes % (A) 6 %; Neutrophils # (A) 3.2 k/uL (1.3-7.7); Neutrophils % (A) 52 %; Platelet Count 262 k/uL (150-450); RBC 4.53 m/uL (4.30-5.90); RDW 15.4 % (11.5-15.5); WBC 6.2 k/uL (3.8-10.6)
[2021-02-14 23:43] LABS: Appearance,Urine Clear (Clear); Bilirubin,Urine Negative (Negative); Blood,Urine Negative (Negative); Color,Urine Light Yellow; Glucose,Urine (UA) 4+ (Negative); Ketones,Urine Negative (Negative); Leukocyte Esterase,Urine Negative (Negative); Nitrite,Urine Negative (Negative); Protein,Urine Negative (Negative); Specific Gravity,Urine 1.039 (1.001-1.035)
[2021-02-14 23:50] LABS: INR 0.9 (<1.2); Partial Thromboplastin Time 23.3 sec (22.0-30.0)
[2021-02-14 23:57] LABS: ALT 22 U/L (4-49); AST 20 U/L (17-59); African American GFR (CKD) >90 (>60 ml/min/1.73 sqM); Alkaline Phosphatase 70 U/L (38-126); Anion Gap 6 mmol/L; Blood Urea Nitrogen 12 mg/dL (9-20); Calcium 9.3 mg/dL (8.4-10.2); Carbon Dioxide 30 mmol/L (22-30); Chloride 102 mmol/L (98-107); Creatine Kinase 54 U/L (55-170); Glucose 394 mg/dL (74-99); Magnesium 1.9 mg/dL (1.6-2.3); Non-African American GFR(CKD) >90 (>60 ml/min/1.73 sqM); Phosphorus 3.4 mg/dL (2.5-4.5); Potassium 4.4 mmol/L (3.5-5.1); Sodium 138 mmol/L (137-145); Total Bilirubin 0.5 mg/dL (0.2-1.3); Total Protein 6.3 g/dL (6.3-8.2)
--- NOTE | 2021-02-15 00:03 | ED ---
Arrhythmia/Palpitations HPI - General Chief Complaint: Arrhythmia/Palpitations Stated Complaint: Irregular heartbeat Time Seen by Provider: 02/14/21 23:03 Source: patient, RN notes reviewed, old records reviewed Mode of arrival: ambulatory Limitations: no limitations - History of Present Illness Initial Comments: This is a 40-year-old male DF for evaluation patient is recent history of LA with stent placement. Patient presents today for significant arrhythmia's like he is having some sort of arrhythmia. Patient admits to severe anxiety over recent heart attack and's causing significant stress could be concerning to his arrhythmia. Patient states he was overdosing on medication at some point taking too much of his anxiety medication feels like that may also made worse. Patient admits to significant stress due to recent heart history as scheduled for echo in the coming weeks MD Complaint: rapid heart beat, "heart racing", palpitations -: days(s) Context: occurred during rest, occurred during exertion Arrhythmia History: other (none, possibly had evenr during stent placement) Associated Symptoms: anxiety, diaphoresis, feeling of impending doom Treatments Prior to Arrival: other (none) - Related Data Home Medications Medication Instructions Recorded Confirmed Albuterol Sulfate [Proair Hfa] 2 puff INHALATION RT-Q4H PRN 11/20/20 11/20/20 Aspirin EC [Ecotrin Low Dose] 81 mg PO DAILY 11/20/20 11/20/20 DULoxetine HCL [Cymbalta] 60 mg PO DAILY 11/20/20 11/20/20 Glipizide (Unknown Strength) 1 dose PO DIRECTED 11/20/20 11/20/20 Previous Rx's Medication Instructions Recorded Atorvastatin [Lipitor] 80 mg PO DAILY #30 tab 11/24/20 Famotidine [Pepcid] 20 mg PO DAILY #30 tab 11/24/20 INSULIN ASPART (NovoLOG) [NovoLOG 12 unit SQ AC-TID #1 vial 11/24/20 (formulary)] Insulin Detemir (Levemir) [Levemir] 35 unit SQ DAILY #0 11/24/20 Losartan [Cozaar] 100 mg PO DAILY #30 tab 11/24/20 Nitroglycerin Sl Tabs [Nitrostat] 0.4 mg SUBLINGUAL Q5M PRN #25 tab 11/24/20 Ticagrelor [Brilinta] 90 mg PO BID #60 tab 11/24/20 carvediloL [Coreg*] 25 mg PO BID-W/MEALS #60 tab 11/24/20 lisinopriL [Zestril] 20 mg PO HS #0 11/24/20 metFORMIN HCL [Glucophage] 1,000 mg PO BID #0 11/24/20 Allergies Allergy/AdvReac Type Severity Reaction Status Date / Time No Known Allergies Allergy Verified 02/14/21 22:42 Review of Systems ROS Statement: Those systems with pertinent positive or pertinent negative responses have been documented in the HPI. ROS Other: All systems not noted in ROS Statement are negative. Past Medical History Past Medical History: Diabetes Mellitus, Hyperlipidemia, Hypertension Additional Past Medical History / Comment(s): neuropathy History of Any Multi-Drug Resistant Organisms: None Reported Past Surgical History: Back Surgery, Hernia Repair Past Anesthesia/Blood Transfusion Reactions: No Reported Reaction Past Psychological History: Depression Smoking Status: Never smoker Past Alcohol Use History: None Reported Past Drug Use History: None Reported General Exam Limitations: no limitations General appearance: alert, in no apparent distress, anxious Head exam: Present: atraumatic, normocephalic, normal inspection Eye exam: Present: normal appearance, PERRL, EOMI. Absent: scleral icterus, conjunctival injection, periorbital swelling ENT exam: Present: normal exam, mucous membranes moist Neck exam: Present: normal inspection. Absent: tenderness, meningismus, l ymphadenopathy Respiratory exam: Present: normal lung sounds bilaterally. Absent: respiratory distress, wheezes, rales, rhonchi, stridor Cardiovascular Exam: Present: regular rate, normal rhythm, normal heart sounds. Absent: systolic murmur, diastolic murmur, rubs, gallop, clicks GI/Abdominal exam: Present: soft, normal bowel sounds. Absent: distended, tenderness, guarding, rebound, rigid Extremities exam: Present: normal inspection, full ROM, normal capillary refill. Absent: tenderness, pedal edema, joint swelling, calf tenderness Back exam: Present: normal inspection Neurological exam: Present: alert, oriented X3, CN II-XII intact Psychiatric exam: Present: normal affect, normal mood Skin exam: Present: warm, dry, intact, normal color. Absent: rash Course Vital Signs 02/14/21 02/14/21 02/15/21 22:40 23:42 00:00 Temperature 97.8 F 97.8 F Pulse Rate 81 77 78 Respiratory 18 20 22 Rate Blood Pressure 146/92 147/100 157/100 O2 Sat by Pulse 99 97 97 Oximetry 02/15/21 01:00 Temperature 98.3 F Pulse Rate 77 Respiratory 22 Rate Blood Pressure 154/97 O2 Sat by Pulse 97 Oximetry - Reevaluation(s) Reevaluation #1: 02/15/21 01:44 Medical record is reviewed Reevaluation #2: 02/15/21 01:44 No significant arrhythmia noted here in the emergency department Reevaluation #3: 02/15/21 01:44 Patient does not fill comfortable with discharge Reevaluation #4: 02/15/21 01:44 Spoke with patient at length regarding findings and results questions answered EKG Findings - EKG Comments: EKG Findings:: EKG shows sinus rhythm 78 IN 170 QRS 78 QTc 420 Medical Decision Making - Medical Decision Making 40 male DF for evaluation patient presents today for severe quotations also admits to anxiety. This does indeed stress in his life possibility of job loss. Patient will be admitted for cardiology consult possible necessitation of event monitor of some sort. - Lab Data Result diagrams: 02/14/21 23:28 02/14/21 23:28 Lab Results 02/14/21 02/14/21 02/14/21 Range/Units 23:28 23:28 23:28 WBC 6.2 (3.8-10.6) k/uL RBC 4.53 (4.30-5.90) m/uL Hgb 13.3 (13.0-17.5) gm/dL Hct 39.9 (39.0-53.0) % MCV 88.2 (80.0-100.0) fL MCH 29.5 (25.0-35.0) pg MCHC 33.5 (31.0-37.0) g/dL RDW 15.4 (11.5-15.5) % Plt Count 262 (150-450) k/uL MPV 7.5 Neutrophils % 52 % Lymphocytes % 33 % Monocytes % 6 % Eosinophils % 4 % Basophils % 1 % Neutrophils # 3.2 (1.3-7.7) k/uL Lymphocytes # 2.1 (1.0-4.8) k/uL Monocytes # 0.4 (0-1.0) k/uL Eosinophils # 0.2 (0-0.7) k/uL Basophils # 0.1 (0-0.2) k/uL PT 10.0 (9.0-12.0) sec INR 0.9 (<1.2) APTT 23.3 (22.0-30.0) sec Sodium (137-145) mmol/L Potassium (3.5-5.1) mmol/L Chloride (98-107) mmol/L Carbon Dioxide (22-30) mmol/L Anion Gap mmol/L BUN (9-20) mg/dL Creatinine (0.66-1.25) mg/dL Est GFR (CKD-EPI)AfAm (>60 ml/min/1.73 sqM) Est GFR (CKD-EPI)NonAf (>60 ml/min/1.73 sqM) Glucose (74-99) mg/dL Calcium (8.4-10.2) mg/dL Phosphorus (2.5-4.5) mg/dL Magnesium (1.6-2.3) mg/dL Total Bilirubin (0.2-1.3) mg/dL AST (17-59) U/L ALT (4-49) U/L Alkaline Phosphatase (38-126) U/L Creatine Kinase (55-170) U/L Troponin I (0.000-0.034) ng/mL NT-Pro-B Natriuret Pep pg/mL Total Protein (6.3-8.2) g/dL Albumin (3.5-5.0) g/dL Urine Color Light Yellow Urine Appearance Clear (Clear) Urine pH 7.0 (5.0-8.0) Ur Specific [place] 1.039 H (1.001-1.035) Urine Protein Negative (Negative) Urine Glucose (UA) 4+ H (Negative) Urine Ketones Negative (Negative) Urine Blood Negative (Negative) Urine Nitrite Negative (Negative) Urine Bilirubin Negative (Negative) Urine Urobilinogen 3.0 (<2.0) mg/dL Ur Leukocyte Esterase Negative (Negative) 02/14/21 02/14/21 02/14/21 Range/Units 23:28 23:28 23:28 WBC (3.8-10.6) k/uL RBC (4.30-5.90) m/uL Hgb (13.0-17.5) gm/dL Hct (39.0-53.0) % MCV (80.0-100.0) fL MCH (25.0-35.0) pg MCHC (31.0-37.0) g/dL RDW (11.5-15.5) % Plt Count (150-450) k/uL MPV Neutrophils % % Lymphocytes % % Monocytes % % Eosinophils % % Basophils % % Neutrophils # (1.3-7.7) k/uL Lymphocytes # (1.0-4.8) k/uL Monocytes # (0-1.0) k/uL Eosinophils # (0-0.7) k/uL Basophils # (0-0.2) k/uL PT (9.0-12.0) sec INR (<1.2) APTT (22.0-30.0) sec Sodium 138 (137-145) mmol/L Potassium 4.4 (3.5-5.1) mmol/L Chloride 102 (98-107) mmol/L Carbon Dioxide 30 (22-30) mmol/L Anion Gap 6 mmol/L BUN 12 (9-20) mg/dL Creatinine 0.51 L (0.66-1.25) mg/dL Est GFR (CKD-EPI)AfAm >90 (>60 ml/min/1.73 sqM) Est GFR (CKD-EPI)NonAf >90 (>60 ml/min/1.73 sqM) Glucose 394 H (74-99) mg/dL Calcium 9.3 (8.4-10.2) mg/dL Phosphorus 3.4 (2.5-4.5) mg/dL Magnesium 1.9 (1.6-2.3) mg/dL Total Bilirubin 0.5 (0.2-1.3) mg/dL AST 20 (17-59) U/L ALT 22 (4-49) U/L Alkaline Phosphatase 70 (38-126) U/L Creatine Kinase 54 L (55-170) U/L Troponin I <0.012 (0.000-0.034) ng/mL NT-Pro-B Natriuret Pep 747 pg/mL Total Protein 6.3 (6.3-8.2) g/dL Albumin 4.0 (3.5-5.0) g/dL Urine Color Urine Appearance (Clear) Urine pH (5.0-8.0) Ur Specific [place] (1.001-1.035) Urine Protein (Negative) Urine Glucose (UA) (Negative) Urine Ketones (Negative) Urine Blood (Negative) Urine Nitrite (Negative) Urine Bilirubin (Negative) Urine Urobilinogen (<2.0) mg/dL Ur Leukocyte Esterase (Negative) Disposition Clinical Impression: Arrhythmia, Palpitations, Tachycardia Disposition: ADMITTED IP TO THIS [facility] Condition: Undetermined Is patient prescribed a controlled substance at d/c from ED?: No Referrals: Eriberto Anne MD [Primary Care Provider] - 1-2 days
[2021-02-15] MEDS ORDERED: NITROGLYCERIN SL TABS 0.4 MG TAB SUBLINGUAL PRN (01:41)
[2021-02-15] MEDS: SODIUM CHLORIDE 0.9% 1,000 ML IV SCH ×2 (02:36→12:19)
[2021-02-15] MEDS: carvediloL 12.5 MG TAB PO SCH ×2 (09:01→17:46)
[2021-02-15] MEDS: LOSARTAN 50 MG TAB PO SCH (09:02)
[2021-02-15] MEDS: TICAGRELOR 90 MG TAB PO SCH ×2 (09:02→21:17)
[2021-02-15] MEDS: ASPIRIN 81 MG PO SCH (09:02)
[2021-02-15] MEDS ORDERED: ALBUTEROL NEBULIZED 2.5 MG/3 ML INHALATION PRN (10:17)
[2021-02-15] MEDS ORDERED: INSULIN DETEMIR (LEVEMIR) 100 UNIT/ML SYR SQ SCH ×2 (10:30→21:00)
[2021-02-15] MEDS: DULoxetine HCL 60 MG CAPSULE.DR PO SCH (10:42)
[2021-02-15] MEDS: FAMOTIDINE 20 MG TAB PO SCH (10:42)
[2021-02-15] MEDS: glipiZIDE 10 MG TAB PO SCH (10:42)
--- NOTE | 2021-02-15 11:09 | CONS ---
CONSULTATION CHIEF COMPLAINT: Palpitations. HISTORY OF PRESENT ILLNESS: Torito is a 40-year-old gentleman with history of hypertension, diabetes, family history of premature coronary artery disease who underwent cardiac catheterization and angioplasty of LAD in October of 2020 in the setting of an anterior wall myocardial infarction and subsequently had a staged angioplasty of the right coronary artery lesion. He sees Dr. Abad in the office. He came to hospital complaining of palpitations. He describes it as sustained palpitations that lasted several minutes at a time, usually at rest associated with some lightheadedness. The patient had similar symptoms when he was being evaluated when he was last seen in our office in December. He does not have chest pain, shortness of breath, leg edema, PND or orthopnea. The patient could not do cardiac rehab. At the time of my evaluation this morning in the emergency room he is symptom free. Remains in sinus rhythm. Hemodynamically stable. His EKG does not reveal acute ischemic changes and his cardiac enzymes have been negative. His hemoglobin is normal at 13.3, platelet count is 263. EKG shows sinus rhythm with evidence of prior anteroseptal myocardial infarction. PAST MEDICAL HISTORY: Significant for coronary artery disease, status post anterior wall myocardial infarction, ischemic cardiomyopathy, diabetes, hypertension, dyslipidemia. MEDICATIONS: Medications at home included carvedilol 25 b.i.d., Brilinta 90 b.i.d., Cozaar 100 daily, metformin 1000 b.i.d., insulin, Pepcid, Cymbalta, Lipitor, aspirin and ProAir. ALLERGIES: There are no known drug allergies. FAMILY HISTORY: Negative for premature coronary artery disease. SOCIAL HISTORY: Negative for current smoking, EtOH abuse, or drug abuse. REVIEW OF SYSTEMS: HEENT: Is unremarkable. CARDIAC: As described above. RESPIRATORY: Negative. GI: Negative. : Negative. ALLERGY/IMMUNOLOGY: Negative. SKIN: Negative. MUSCULOSKELETAL: Negative. PSYCHOSOCIAL: Negative. ENDOCRINE: Negative. DERM: Negative. CONSTITUTIONAL: Negative. ONCOLOGICAL: Negative. REEL WINDER: Negative. The rest of the system review is not relevant. PHYSICAL EXAM: Comfortable at rest, afebrile. Heart rate is 86 beats per minute, blood pressure is 145/95, respiratory rate is 16, O2 saturation is 97% on room air. There is no jugular venous distention. Carotid upstroke is normal. There is no bruit. Chest exam reveals good air entry bilaterally. Heart exam reveals first and second heart sounds. No gallop. No murmur. No rub. Abdomen is soft, nontender. Examination of extremities did not reveal any edema. Peripheral pulses are felt. REEL WINDER exam did not reveal focal neurological deficits. LAB: Show that the potassium is 4.4, creatinine is 0.5. AST, ALT are within normal limits. Hemoglobin is normal at 13.3, platelet count is 260. EKG is abnormal showing sinus rhythm with evidence of prior anteroseptal myocardial infarction. ASSESSMENT: 1. Palpitations, probably related to episodes of sinus tachycardia. 2. Ischemic cardiomyopathy. 3. Coronary artery disease, status post multivessel angioplasty. PLAN: I will obtain a 2D echo on him to assess his LV function and obtain a TSH to rule out hyper or hypothyroidism. Continue the patient on beta blockers. Watch him on telemetry for any episodes of ventricular tachycardia. MMODL / IJN: [id number] /
[2021-02-15] MEDS: INSULIN ASPART (NovoLOG) 100 UNIT/ML VIAL SQ SCH ×4 (12:15→21:16)
--- NOTE | 2021-02-15 14:13 | P.HPIM ---
History of Present Illness H&P Date: 02/15/21 HISTORY OF PRESENT ILLNESS This is a 40-year-old male patient of Dr. Anne and Dr. Abad with past medical history of anterior ST elevated myocardial infarction status post PCI of the proximal to mid LAD on 11/20/2020 and PCI to the mid RCA on 11/1701/17/2021, ischemic cardiomyopathy with ejection fraction of 3540 percent, chronic systolic heart failure, hypertension, diabetes mellitus type 2, obesity. The patient states that he did well after he was discharge from the hospital. He is complaining of palpitations that seems to be coming and going over the past 2 days have been more frequent. He denies any chest pain. 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 Patient came into [facility] emergency center for evaluation. He was afebrile, heart rate in the 70s and 80s, blood pressure 146/92, EKG was a sinus rhythm. CBC was unremarkable. Electrolytes and kidney function unremarkable. Blood sugar was 394. Troponins negative 3 draws. ProBNP 747. Urinalysis negative. TSH 1.890. Patient is seen today in the emergency center and he states that he has started seen Dr. Mclean this morning, echocardiogram has been ordered as well as Coreg has been increased to 25 mg twice daily. REVIEW OF SYSTEMS Constitutional: No fever, no chills, no night sweats. No weight change. No weakness, fatigue or lethargy. No daytime sleepiness. EENT: No headache. No blurred vision or double vision, no loss of vision. No loss of Hearing, no ringing in the ears, no dizziness. No nasal drainage or congestion. No epistaxis. No sore throat. Lungs: No shortness of breath, cough, no sputum production. No wheezing. Cardiovascular: No chest pain, no lower extremity edema. No palpitations. No paroxysmal nocturnal dyspnea. No orthopnea. No lightheadedness or dizziness. No syncopal episodes. Abdominal: No abdominal pain. No nausea, vomiting. No diarrhea. No constipation. No bloody or tarry stools.. No loss of appetite. Genitourinary: No dysuria, increased frequency, urgency. No urinary retention. Musculoskeletal: No myalgias. No muscle weakness, no gait dysfunction, no frequent falls. No back pain. No neck pain. Integumentary: No wounds, no lesions. No rash or pruritus. No unusual bruising. No change in hair or nails. Neurologic: No aphasia. No facial droop. No change in mentation. No head injury. No headache. No paralysis. No paresthesia. Psychiatric: No depression. No anxiety. No mood swings. Endocrine: No abnormal blood sugars. No weight change. No excessive sweating or thirst. No cold intolerance. SOCIAL HISTORY Patient works at [employer]. He is a lifelong nonsmoker, denies EtOH, illicit drug use. FAMILY HISTORY Patient is with 5 daughters who are healthy, he has one brother who is healthy, his dad in his 40s from coronary artery disease, mom is still alive with diabetes and coronary artery disease. PHYSICAL EXAMINATION Gen: This is a 40-year-old male. He is resting on the ear surgery appears to be comfortable and in no acute distress. HEENT: Head is atraumatic, normocephalic. Pupils equal, round. Sclerae is anicteric. NECK: Supple. No JVD. No lymphadenopathy. No thyromegaly. LUNGS: Clear to auscultation. No wheezes or rhonchi. No intercostal retractions. HEART: Regular rate and rhythm. No murmur. ABDOMEN: Soft. Bowel sounds are present. No masses. No tenderness. EXTREMITIES: No pedal edema. No calf tenderness. NEUROLOGICAL: Patient is awake, alert and oriented x3. Cranial nerves 2 through 12 are grossly intact. ASSESSMENT AND PLAN 1. Palpitations probably related to episodes of sinus tachycardia. Coreg increased to 25 mg twice daily, cardiology consult appreciated. 2. Ischemic cardiomyopathy with chronic systolic heart failure. Continue Coreg increased to 25 mg twice daily, Lasix 20 mg daily 3. Coronary artery disease with previous anterior ST elevated myocardial infarction status post PCI of the proximal to mid LAD on 11/20/2020 and PCI to the mid RCA on 11/1701/17/2021. Continue Brilinta 90 mg twice daily, Coreg, Lipitor 80 mg daily, aspirin 81 mg daily. 4. Diabetes mellitus type 2, uncontrolled with hyperglycemia. Patient will be continued on Levemir 35 units at bedtime, metformin 1000 mg twice daily, glipizide 10 mg daily, NovoLog scale and NovoLog 12 units with meals scheduled. 5. Hypertension. Continue Coreg increased to 25 mg twice daily, hydralazine 50 mg twice daily, losartan 100 mg daily was added by cardiology. 6. Hyperlipidemia. Continue atorvastatin 80 mg daily. 7. Generalized anxiety disorder. Continue Cymbalta 60 mg daily. 8. GI prophylaxis. Protonix daily. 9. DVT prophylaxis. Early ambulation. Patient placed on the Observation unit. DISCHARGE PLAN Home. Impression and plan of care have been directed as dictated by the signing physician. Kaye Bach nurse practitioner acting as scribe for signing physician. Past Medical History Past Medical History: Diabetes Mellitus, Hyperlipidemia, Hypertension Additional Past Medical History / Comment(s): neuropathy History of Any Multi-Drug Resistant Organisms: None Reported Past Surgical History: Back Surgery, Hernia Repair Past Anesthesia/Blood Transfusion Reactions: No Reported Reaction Past Psychological History: Depression Smoking Status: Never smoker Past Alcohol Use History: None Reported Past Drug Use History: None Reported Medications and Allergies Home Medications Medication Instructions Recorded Confirmed Type Albuterol Sulfate [Proair Hfa] 2 puff INHALATION RT-Q4H PRN 11/20/20 02/15/21 History Aspirin EC [Ecotrin Low Dose] 81 mg PO DAILY 11/20/20 02/15/21 History DULoxetine HCL [Cymbalta] 60 mg PO DAILY 11/20/20 02/15/21 History Atorvastatin [Lipitor] 80 mg PO DAILY #30 tab 11/24/20 02/15/21 Rx Famotidine [Pepcid] 20 mg PO DAILY #30 tab 11/24/20 02/15/21 Rx INSULIN ASPART (NovoLOG) [NovoLOG 12 unit SQ AC-TID #1 vial 11/24/20 02/15/21 Rx (formulary)] Insulin Detemir (Levemir) [Levemir] 35 unit SQ DAILY #0 11/24/20 02/15/21 Rx Losartan [Cozaar] 100 mg PO DAILY #30 tab 11/24/20 02/15/21 Rx Nitroglycerin Sl Tabs [Nitrostat] 0.4 mg SUBLINGUAL Q5M PRN #25 tab 11/24/20 02/15/21 Rx Ticagrelor [Brilinta] 90 mg PO BID #60 tab 11/24/20 02/15/21 Rx carvediloL [Coreg*] 25 mg PO BID-W/MEALS #60 tab 11/24/20 02/15/21 Rx metFORMIN HCL [Glucophage] 1,000 mg PO BID #0 11/24/20 02/15/21 Rx Furosemide [Lasix] 20 mg PO DAILY 02/15/21 02/15/21 History glipiZIDE [Glucotrol] 10 mg PO DAILY 02/15/21 02/15/21 History hydrALAZINE HCL [Apresoline] 50 mg PO BID 02/15/21 02/15/21 History Allergies Allergy/AdvReac Type Severity Reaction Status Date / Time No Known Allergies Allergy Verified 02/14/21 22:42 Physical Exam Vitals: Vital Signs Temp Pulse Resp BP Pulse Ox 02/15/21 08:01 98.6 F 86 16 140/95 97 02/15/21 06:58 86 18 119/67 97 02/15/21 06:00 88 16 175/117 88 L 02/15/21 03:08 78 16 172/113 99 02/15/21 02:00 78 17 99 02/15/21 01:00 98.3 F 77 22 154/97 97 02/15/21 00:00 78 22 157/100 97 02/14/21 23:42 97.8 F 77 20 147/100 97 02/14/21 22:40 97.8 F 81 18 146/92 99 Intake and Output 02/14/21 02/15/21 02/15/21 22:59 06:59 14:59 Other: Weight 113.398 kg Results CBC & Chem 7: 02/14/21 23:28 02/14/21 23:28 Labs: Abnormal Lab Results - Last 24 Hours (Table) 02/14/21 02/14/21 Range/Units 23:28 23:28 Creatinine 0.51 L (0.66-1.25) mg/dL Glucose 394 H (74-99) mg/dL Creatine Kinase 54 L (55-170) U/L Ur Specific [place] 1.039 H (1.001-1.035) Urine Glucose (UA) 4+ H (Negative)
[2021-02-15 17:23] LABS: Glucose,Whole Blood 215 mg/dL (75-99)
[2021-02-15] MEDS ORDERED: carvediloL 12.5 MG TAB PO SCH (17:30)
[2021-02-15] MEDS: metFORMIN 500 MG TAB PO SCH (17:47)
--- NOTE | 2021-02-15 18:00 | ECHOF ---
Referral Reason:Heart Palpitations MEASUREMENTS -------- HEIGHT: 190.5 cm WEIGHT: 113.4 kg BP: 135/93 RVIDd: 3.4 cm (< 3.3) IVSd: 1.3 cm (0.6 - 1.1) LVIDd: 5.1 cm (3.9 - 5.3) LVPWd: 1.3 cm (0.6 - 1.1) IVSs: 1.8 cm LVIDs: 4.1 cm LVPWs: 1.6 cm LA Diam: 4.4 cm (2.7 - 3.8) LAESV Index (A-L): 31.32 ml/m Ao Diam: 3.7 cm (2.0 - 3.7) AV Cusp: 2.6 cm (1.5 - 2.6) MV EXCURSION: 24.295 mm (> 18.000) MV EF SLOPE: 226 mm/s (70 - 150) EPSS: 1.0 cm MV E Uri: 1.03 m/s MV DecT: 176 ms MV A Uri: 0.58 m/s MV E/A Ratio: 1.77 FINDINGS -------- Sinus rhythm. This was a technically difficult study with suboptimal apical views. The left ventricular size is normal. There is mild concentric left ventricular hypertrophy. Overa ll left ventricular systolic function is mildly impaired with, an EF between 45 - 50 %. Mid anteros eptal LV wall motion is hypokinetic. Apical inferior LV wall motion is hypokinetic. Apical sept um LV wall motion is hypokinetic. The right ventricle is mildly enlarged. LA is midly dilated 29-33ml/m2. The right atrium is normal in size. 5 ml of Lumason was utilized for enhancement of images. Interatrial and interventricular septum intact. The aortic valve is trileaflet, and appears structurally normal. No aortic stenosis or regurgitation. The mitral valve is normal. The tricuspid valve appears structurally normal. Unable to estimate RVSP due to inadequate TR jet s pectral doppler profile. Trace/mild (physiologic) pulmonic regurgitation. The aortic root size is normal. Normal inferior vena cava with normal inspiratory collapse consistent with estimated right atrial pre ssure of 5 mmHg. There is a moderate pericardial effusion located near the left ventricle. CONCLUSIONS -------- 1. The left ventricular size is normal. 2. There is mild concentric left ventricular hypertrophy. 3. Overall left ventricular systolic function is mildly impaired with, an EF between 45 - 50 %. 4. Mid anteroseptal LV wall motion is hypokinetic. 5. Apical inferior LV wall motion is hypokinetic. 6. Apical septum LV wall motion is hypokinetic. 7. The right ventricle is mildly enlarged. 8. LA is midly dilated 29-33ml/m2. 9. 5 ml of Lumason was utilized for enhancement of images. 10. The aortic valve is trileaflet, and appears structurally normal. No aortic stenosis or regurgitat ion. 11. Trace/mild (physiologic) pulmonic regurgitation. 12. There is a moderate pericardial effusion l SAIL REPAIRER: Mary Cruz RDCS
[2021-02-15 20:03] LABS: Glucose,Whole Blood 215 mg/dL (75-99)
[2021-02-15] MEDS: hydrALAZINE HCL 50 MG TAB PO SCH (21:18)
[2021-02-16 02:29] VITALS: PULSE 79
[2021-02-16 07:17] LABS: Glucose,Whole Blood 120 mg/dL (75-99)
[2021-02-16] MEDS: INSULIN ASPART (NovoLOG) 100 UNIT/ML VIAL SQ SCH ×2 (07:19→08:00)
[2021-02-16] MEDS ORDERED: PANTOPRAZOLE 40 MG TABLET PO SCH (07:30)
[2021-02-16 07:34] VITALS: BP 156/97; RESP 16; TEMP 98.1
[2021-02-16] MEDS: FAMOTIDINE 20 MG TAB PO SCH (07:59)
[2021-02-16] MEDS: ASPIRIN 81 MG PO SCH (07:59)
[2021-02-16] MEDS: carvediloL 12.5 MG TAB PO SCH (07:59)
[2021-02-16] MEDS: DULoxetine HCL 60 MG CAPSULE.DR PO SCH (07:59)
[2021-02-16] MEDS: LOSARTAN 50 MG TAB PO SCH (08:00)
[2021-02-16] MEDS: metFORMIN 500 MG TAB PO SCH (08:00)
[2021-02-16] MEDS ORDERED: ACETAMINOPHEN TAB 325 MG TAB PO PRN (08:33)
[2021-02-16] MEDS: glipiZIDE 10 MG TAB PO SCH (08:53)
[2021-02-16] MEDS: hydrALAZINE HCL 50 MG TAB PO SCH (08:54)
[2021-02-16] MEDS: TICAGRELOR 90 MG TAB PO SCH (08:54)
[2021-02-16] MEDS ORDERED: ATORVASTATIN 80 MG TAB PO SCH (09:00)
[2021-02-16] MEDS ORDERED: FUROSEMIDE 20 MG TAB PO SCH (09:00)
[2021-02-16] MEDS ORDERED: ASPIRIN 325 MG TAB PO SCH (09:00)
[2021-02-16] MEDS ORDERED: IBUPROFEN 400 MG TAB PO SCH (11:15)
--- NOTE | 2021-02-16 11:33 | P.PN ---
Subjective This is a pleasant 40-year-old male past medical history significant for coronary artery disease s/p multiple PCI's in the setting of anterior wall MT and staged PCI of the RCA, ischemic cardiomyopathy, hypertension, diabetes mellitus, dyslipidemia, GERD and depression. He follows in the office with Dr. Abad. We are seeing him for complaints of palpitations. He continues to feel these palpitations through this hospitalization, however telemetry tracings have been unremarkable. He is maintaining SR. Echocardiogram revealed improved LV systolic function with EF 45-50%, mid anterior septal, apical inferior and apical septal wall motion hypokinesia, mildly dilated left atrium and a moderate pericardial effusion. Blood pressure 156/97 heart rate 79 afebrile maintaining oxygen saturation on room air. GENERAL: Well-appearing, well-nourished and in no acute distress. NECK: Supple without JVD or thyromegaly. LUNGS: Breath sounds clear to auscultation bilaterally. Respiration equal and unlabored. No wheezes, rales or rhonchi. HEART: Regular rate and rhythm without murmurs, rubs or gallops. S1 and S2 heard. EXTREMITIES: Normal range of motion, no edema. No clubbing or cyanosis. Peripheral pulses intact. ASSESSMENT Palpitations Pericardial effusion Coronary artery disease in the setting of an anterior wall MT Ischemic cardiomyopathy, improving Hypertension Dyslipidemia Diabetes mellitus Gastroesophageal reflux disease PLAN Initiate anti-inflammatories for pericardial effusion. Although effusion is moderate he is asymptomatic. This does not account for his palpitations. No evidence of arrhythmia on telemetry tracings. Continue to monitor for another 24 hours. Nurse Practitioner note has been reviewed, I agree with a documented findings and plan of care. Patient was seen and examined. Objective - Vital Signs Vital signs: Vital Signs Temp 98.1 F 02/16/21 07:00 Pulse 79 02/16/21 07:00 Resp 16 02/16/21 07:00 BP 156/97 02/16/21 07:00 Pulse Ox 98 02/16/21 07:00 Intake & Output 02/15/21 02/16/21 02/16/21 18:59 06:59 18:59 Intake Total 480 100 Balance 480 100 Weight 113.398 kg Intake: Oral 480 100 Other: Voiding Method Toilet - Labs CBC & Chem 7: 02/14/21 23:28 02/14/21 23:28 Labs: Abnormal Lab Results - Last 24 Hours (Table) 02/15/21 02/15/21 02/16/21 Range/Units 17:22 20:02 07:16 POC Glucose (mg/dL) 215 H 215 H 120 H (75-99) mg/dL
--- NOTE | 2021-02-16 14:57 | P.DS ---
Providers Date of admission: 02/15/21 01:41 Expected date of discharge: 02/16/21 Attending physician: Juancho Parada Consults: 02/15/21 01:41 Consult Physician Urgent Consulting Provider: Cheikh Abad Consult Reason/Comments: known Do you want consulting provider notified?: Yes Primary care physician: Eriberto Anne MD Hospital Course: HISTORY OF PRESENT ILLNESS This is a 40-year-old male patient of Dr. Anne and Dr. Abad with past medical history of anterior ST elevated myocardial infarction status post PCI of the proximal to mid LAD on 11/20/2020 and PCI to the mid RCA on 11/1701/17/2021, ischemic cardiomyopathy with ejection fraction of 3540 percent, chronic systolic heart failure, hypertension, diabetes mellitus type 2, obesity. The patient states that he did well after he was discharge from the hospital. He is complaining of palpitations that seems to be coming and going over the past 2 days have been more frequent. He denies any chest pain. 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 Patient came into [facility] emergency center for evaluation. He was afebrile, heart rate in the 70s and 80s, blood pressure 146/92, EKG was a sinus rhythm. CBC was unremarkable. Electrolytes and kidney function unremarkable. Blood sugar was 394. Troponins negative 3 draws. ProBNP 747. Urinalysis negative. TSH 1.890. Patient is seen today in the emergency center and he states that he has started seen Dr. Mclean this morning, echocardiogram has been ordered as well as Coreg has been increased to 25 mg twice daily. 02/16: Echocardiogram reveals EF of 45-50% with mild concentric left ventricular hypertrophy, moderate pericardial effusion. Normal mitral valve. Echocardiogram from November 21 revealed EF of 35-40% with severe concentric left ventricle hypertrophy, mild mitral regurgitation, mild tricuspid regurgitation, borderline pulmonary artery hypertension with RVSP 35.98 mmHg. Patient has been afebrile, heart rate in the 70s, blood pressure 156/97, pulse ox 98% on room air. Blood sugar this morning was 120. Yesterday afternoon and evening blood sugar readings 215. Patient denies having any further sensation of palpitations. He denies having any chest pain or shortness of breath. Patient will be discharged home today in stable condition. ASSESSMENT AND PLAN 1. Palpitations probably related to episodes of sinus tachycardia. 2. Ischemic cardiomyopathy with chronic systolic heart failure. 3. Coronary artery disease with previous anterior ST elevated myocardial infarction status post PCI of the proximal to mid LAD on 11/20/2020 and PCI to the mid RCA on 11/1701/17/2021. 4. Diabetes mellitus type 2, uncontrolled with hyperglycemia. 5. Hypertension. 6. Hyperlipidemia. 7. Generalized anxiety disorder. DISCHARGE PLAN Home. Impression and plan of care have been directed as dictated by the signing physician. Kaye Bach nurse practitioner acting as scribe for signing physician. Patient Condition at Discharge: Good Plan - Discharge Summary Discharge Rx Participant: No New Discharge Prescriptions: New Carvedilol [Coreg] 25 mg PO BID #60 tablet Continue DULoxetine HCL [Cymbalta] 60 mg PO DAILY Albuterol Sulfate [Proair Hfa] 2 puff INHALATION RT-Q4H PRN PRN Reason: Shortness Of Breath INSULIN ASPART (NovoLOG) [NovoLOG (formulary)] 12 unit SQ AC-TID #1 vial Famotidine [Pepcid] 20 mg PO DAILY #30 tab Insulin Detemir (Levemir) [Levemir] 35 unit SQ DAILY #0 Aspirin EC [Ecotrin Low Dose] 81 mg PO DAILY Ticagrelor [Brilinta] 90 mg PO BID #60 tab Losartan [Cozaar] 100 mg PO DAILY #30 tab Atorvastatin [Lipitor] 80 mg PO DAILY #30 tab Nitroglycerin Sl Tabs [Nitrostat] 0.4 mg SUBLINGUAL Q5M PRN #25 tab PRN Reason: Chest Pain metFORMIN HCL [Glucophage] 1,000 mg PO BID #0 glipiZIDE [Glucotrol] 10 mg PO DAILY Furosemide [Lasix] 20 mg PO DAILY hydrALAZINE HCL [Apresoline] 50 mg PO BID Discontinued carvediloL [Coreg*] 25 mg PO BID-W/MEALS #60 tab Discharge Medication List Albuterol Sulfate [Proair Hfa] 2 puff INHALATION RT-Q4H PRN 11/20/20 [History] Aspirin EC [Ecotrin Low Dose] 81 mg PO DAILY 11/20/20 [History] DULoxetine HCL [Cymbalta] 60 mg PO DAILY 11/20/20 [History] Atorvastatin [Lipitor] 80 mg PO DAILY #30 tab 11/24/20 [Rx] Famotidine [Pepcid] 20 mg PO DAILY #30 tab 11/24/20 [Rx] INSULIN ASPART (NovoLOG) [NovoLOG (formulary)] 12 unit SQ AC-TID #1 vial 11/24/20 [Rx] Insulin Detemir (Levemir) [Levemir] 35 unit SQ DAILY #0 11/24/20 [Rx] Losartan [Cozaar] 100 mg PO DAILY #30 tab 11/24/20 [Rx] Nitroglycerin Sl Tabs [Nitrostat] 0.4 mg SUBLINGUAL Q5M PRN #25 tab 11/24/20 [Rx] Ticagrelor [Brilinta] 90 mg PO BID #60 tab 11/24/20 [Rx] metFORMIN HCL [Glucophage] 1,000 mg PO BID #0 11/24/20 [Rx] Furosemide [Lasix] 20 mg PO DAILY 02/15/21 [History] glipiZIDE [Glucotrol] 10 mg PO DAILY 02/15/21 [History] hydrALAZINE HCL [Apresoline] 50 mg PO BID 02/15/21 [History] Carvedilol [Coreg] 25 mg PO BID #60 tablet 02/16/21 [Rx] Follow up Appointment(s)/Referral(s): Eriberto Anne MD [Primary Care Provider] - 1 Week Cheikh Abad DO [STAFF PHYSICIAN] - 02/24/21 3:00 pm Patient Instructions/Handouts: Heart Palpitations (DC), Tachycardia (GEN) Activity/Diet/Wound Care/Special Instructions: off work for 48 hours. OK to return on . Discharge Disposition: HOME SELF-CARE
== END 2021-02-16 11:15 | disposition home or self-care (01) ==
LOC: EC 22:32 → 6NMEDSUR 02-15 01:41
PROVIDERS: ADMIT Internal Medicine Geriatric Medicine; ATTEND Internal Medicine Geriatric Medicine
DX: R00.2 Palpitations (principal); I31.3 Pericardial effusion (noninflammatory); I11.0 Hypertensive heart disease with heart failure; I50.22 Chronic systolic (congestive) heart failure; E11.65 Type 2 diabetes mellitus with hyperglycemia; I08.1 Rheumatic disorders of both mitral and tricuspid valves; I25.10 Atherosclerotic heart disease of native coronary artery without angina pectoris; I25.5 Ischemic cardiomyopathy; F41.1 Generalized anxiety disorder; E11.42 Type 2 diabetes mellitus with diabetic polyneuropathy; K21.9 Gastro-esophageal reflux disease without esophagitis; I25.2 Old myocardial infarction; F43.8 Other reactions to severe stress; E78.5 Hyperlipidemia, unspecified; F32.9 Major depressive disorder, single episode, unspecified; E66.9 Obesity, unspecified; Z68.31 Body mass index [BMI] 31.0-31.9, adult; Z79.82 Long term (current) use of aspirin; Z79.4 Long term (current) use of insulin; Z79.02 Long term (current) use of antithrombotics/antiplatelets; Z79.899 Other long term (current) drug therapy; Z95.5 Presence of coronary angioplasty implant and graft; Z82.49 Family history of ischemic heart disease and other diseases of the circulatory system; Z83.3 Family history of diabetes mellitus
CPT/HCPCS: 96361 ×2; 93005 ×2; 96360; 99285; 36415; 83880; 80053; 84443; 82550; 83735; 84100; 84484 ×2; 85025; 85610; 85730; 81003; G0378 ×2; C8929; Q9950; 93306

== ENCOUNTER 2021-03-03 04:18 | Inpatient (IN) | payer OTHER ==
--- NOTE | 2021-03-03 04:48 | ED ---
Skin/Abscess/FB HPI - General Chief complaint: Skin/Abscess/Foreign Body Stated complaint: LT foot pain Time Seen by Provider: 03/03/21 04:40 Source: patient, RN notes reviewed, old records reviewed Mode of arrival: ambulatory Limitations: no limitations - History of Present Illness Initial comments: This is a 40-year-old male to the ER for evaluation of left great toe pain. Patient has history of diabetes and heart disease, does still complaining of anxiety. At this time patient presents for evaluation regards to left great toe swelling patient has no fevers no streaking up the left leg. Severe pain. Pain is gotten to the point weakness difficulty bearing weight on his left foot MD complaint: discoloration, other (Swelling and tenderness) -: week(s) Tetanus Up to Date: yes Location: L foot Severity: severe Severity scale (1-10): 8 Quality: burning, stabbing Consistency: constant Improves with: none Worsens with: none Context: none Associated symptoms: denies other symptoms Treatments Prior to Arrival: none - Related Data Home Medications Medication Instructions Recorded Confirmed Albuterol Sulfate [Proair Hfa] 2 puff INHALATION RT-Q4H PRN 11/20/20 03/03/21 Aspirin EC [Ecotrin Low Dose] 81 mg PO DAILY 11/20/20 03/03/21 DULoxetine HCL [Cymbalta] 60 mg PO DAILY 11/20/20 03/03/21 glipiZIDE [Glucotrol] 10 mg PO DAILY 02/15/21 03/03/21 hydrALAZINE HCL [Apresoline] 50 mg PO BID 02/15/21 03/03/21 Spironolactone [Aldactone] 50 mg PO DAILY 03/03/21 03/03/21 Previous Rx's Medication Instructions Recorded Atorvastatin [Lipitor] 80 mg PO DAILY #30 tab 11/24/20 Famotidine [Pepcid] 20 mg PO DAILY #30 tab 11/24/20 INSULIN ASPART (NovoLOG) [NovoLOG 12 unit SQ AC-TID #1 vial 11/24/20 (formulary)] Insulin Detemir (Levemir) [Levemir] 35 unit SQ DAILY #0 11/24/20 Losartan [Cozaar] 100 mg PO DAILY #30 tab 11/24/20 Nitroglycerin Sl Tabs [Nitrostat] 0.4 mg SUBLINGUAL Q5M PRN #25 tab 11/24/20 Ticagrelor [Brilinta] 90 mg PO BID #60 tab 11/24/20 metFORMIN HCL [Glucophage] 1,000 mg PO BID #0 11/24/20 Carvedilol [Coreg] 25 mg PO BID #60 tablet 02/16/21 Furosemide [Lasix] 40 mg PO DAILY #60 tab 03/05/21 Allergies Allergy/AdvReac Type Severity Reaction Status Date / Time No Known Allergies Allergy Verified 03/03/21 07:32 Review of Systems ROS Statement: Those systems with pertinent positive or pertinent negative responses have been documented in the HPI. ROS Other: All systems not noted in ROS Statement are negative. Past Medical History Past Medical History: Diabetes Mellitus, Hyperlipidemia, Hypertension Additional Past Medical History / Comment(s): neuropathy Last Myocardial Infarction Date:: 11/20/2020 History of Any Multi-Drug Resistant Organisms: None Reported Past Surgical History: Back Surgery, Hernia Repair Additional Past Surgical History / Comment(s): 4 cardiac stents 11/20/2020, 1 cardiac stent 11/23/2020 Past Anesthesia/Blood Transfusion Reactions: No Reported Reaction Past Psychological History: Depression Smoking Status: Never smoker Past Alcohol Use History: None Reported Past Drug Use History: None Reported - Past Family History Mother Family Medical History: Diabetes Mellitus Father Family Medical History: Congestive Heart Failure (CHF), Coronary Artery Disease (CAD), Diabetes Mellitus, Hypertension, Myocardial Infarction ([place]) Additional Family Medical History / Comment(s): father 2019 from [place] General Exam Limitations: no limitations General appearance: alert, in no apparent distress Head exam: Present: atraumatic, normocephalic, normal inspection Eye exam: Present: normal appearance, PERRL, EOMI. Absent: scleral icterus, conjunctival injection, periorbital swelling ENT exam: Present: normal exam, mucous membranes moist Neck exam: Present: normal inspection. Absent: tenderness, meningismus, lymphadenopathy Respiratory exam: Present: normal lung sounds bilaterally. Absent: respiratory distress, wheezes, rales, rhonchi, stridor Cardiovascular Exam: Present: regular rate, normal rhythm, normal heart sounds. Absent: systolic murmur, diastolic murmur, rubs, gallop, clicks GI/Abdominal exam: Present: soft, normal bowel sounds. Absent: distended, tenderness, guarding, rebound, rigid Extremities exam: Present: normal inspection, full ROM, normal capillary refill, other (Severe left great toe swelling pain with callus). Absent: tenderness, pedal edema, joint swelling, calf tenderness Back exam: Present: normal inspection Neurological exam: Present: alert, oriented X3, CN II-XII intact Psychiatric exam: Present: normal affect, normal mood Skin exam: Present: warm, dry, intact, normal color. Absent: rash Course Vital Signs 03/03/21 03/03/21 03/03/21 04:23 08:27 09:11 Temperature 98.1 F 98.1 F Pulse Rate 70 78 77 Respiratory 18 18 18 Rate Blood Pressure 126/84 127/81 149/101 O2 Sat by Pulse 96 96 98 Oximetry 03/03/21 14:53 Temperature Pulse Rate 86 Respiratory 18 Rate Blood Pressure 147/89 O2 Sat by Pulse 97 Oximetry - Reevaluation(s) Reevaluation #1: Medical record is reviewed Patient symptoms are improved here in the ER Patient continues to have full pain despite improvement Patient informed of results and questions answered Patient understands he needs admission for IV antibiotics Medical Decision Making - Medical Decision Making 89 male with significant history of diabetes and heart disease coming in with significant left oh great toe pain and swelling. Patient does have severe cellulitis of left great toe will be admitted rule out osteomyelitis for IV ant ibiotics - Lab Data Result diagrams: 03/03/21 05:37 03/06/21 07:08 Lab Results 03/03/21 03/03/21 03/03/21 Range/Units 05:34 05:37 05:37 WBC 8.5 (3.8-10.6) k/uL RBC 4.12 L (4.30-5.90) m/uL Hgb 12.8 L (13.0-17.5) gm/dL Hct 37.2 L (39.0-53.0) % MCV 90.4 (80.0-100.0) fL MCH 31.1 (25.0-35.0) pg MCHC 34.4 (31.0-37.0) g/dL RDW 15.0 (11.5-15.5) % Plt Count 302 (150-450) k/uL MPV 7.9 Neutrophils % 61 % Lymphocytes % 26 % Monocytes % 7 % Eosinophils % 2 % Basophils % 1 % Neutrophils # 5.2 (1.3-7.7) k/uL Lymphocytes # 2.3 (1.0-4.8) k/uL Monocytes # 0.6 (0-1.0) k/uL Eosinophils # 0.2 (0-0.7) k/uL Basophils # 0.1 (0-0.2) k/uL ESR (0-15) mm/Hr PT 10.6 (9.0-12.0) sec INR 1.0 (<1.2) APTT 24.3 (22.0-30.0) sec Sodium (137-145) mmol/L Potassium (3.5-5.1) mmol/L Chloride (98-107) mmol/L Carbon Dioxide (22-30) mmol/L Anion Gap mmol/L BUN (9-20) mg/dL Creatinine (0.66-1.25) mg/dL Est GFR (CKD-EPI)AfAm (>60 ml/min/1.73 sqM) Est GFR (CKD-EPI)NonAf (>60 ml/min/1.73 sqM) Glucose (74-99) mg/dL POC Glucose (mg/dL) (75-99) mg/dL POC Glu Motor Equipment Commanding Officer ID Plasma Lactic Acid Mahad (0.7-2.0) mmol/L Calcium (8.4-10.2) mg/dL Phosphorus (2.5-4.5) mg/dL Magnesium (1.6-2.3) mg/dL Total Bilirubin (0.2-1.3) mg/dL AST (17-59) U/L ALT (4-49) U/L Alkaline Phosphatase (38-126) U/L Troponin I (0.000-0.034) ng/mL C-Reactive Protein 3.0 H (0.0-0.8) mg/dL Total Protein (6.3-8.2) g/dL Albumin (3.5-5.0) g/dL Urine Color Urine Appearance (Clear) Urine pH (5.0-8.0) Ur Specific [place] (1.001-1.035) Urine Protein (Negative) Urine Glucose (UA) (Negative) Urine Ketones (Negative) Urine Blood (Negative) Urine Nitrite (Negative) Urine Bilirubin (Negative) Urine Urobilinogen (<2.0) mg/dL Ur Leukocyte Esterase (Negative) 03/03/21 03/03/21 03/03/21 Range/Units 05:37 05:37 05:37 WBC (3.8-10.6) k/uL RBC (4.30-5.90) m/uL Hgb (13.0-17.5) gm/dL Hct (39.0-53.0) % MCV (80.0-100.0) fL MCH (25.0-35.0) pg MCHC (31.0-37.0) g/dL RDW (11.5-15.5) % Plt Count (150-450) k/uL MPV Neutrophils % % Lymphocytes % % Monocytes % % Eosinophils % % Basophils % % Neutrophils # (1.3-7.7) k/uL Lymphocytes # (1.0-4.8) k/uL Monocytes # (0-1.0) k/uL Eosinophils # (0-0.7) k/uL Basophils # (0-0.2) k/uL ESR (0-15) mm/Hr PT (9.0-12.0) sec INR (<1.2) APTT (22.0-30.0) sec Sodium 132 L (137-145) mmol/L Potassium 4.1 (3.5-5.1) mmol/L Chloride 100 (98-107) mmol/L Carbon Dioxide 25 (22-30) mmol/L Anion Gap 7 mmol/L BUN 12 (9-20) mg/dL Creatinine 0.55 L (0.66-1.25) mg/dL Est GFR (CKD-EPI)AfAm >90 (>60 ml/min/1.73 sqM) Est GFR (CKD-EPI)NonAf >90 (>60 ml/min/1.73 sqM) Glucose 446 H (74-99) mg/dL POC Glucose (mg/dL) (75-99) mg/dL POC Glu Motor Equipment Commanding Officer ID Plasma Lactic Acid Mahad 0.9 (0.7-2.0) mmol/L Calcium 9.3 (8.4-10.2) mg/dL Phosphorus 3.5 (2.5-4.5) mg/dL Magnesium 2.0 (1.6-2.3) mg/dL Total Bilirubin 0.8 (0.2-1.3) mg/dL AST 18 (17-59) U/L ALT 20 (4-49) U/L Alkaline Phosphatase 101 (38-126) U/L Troponin I (0.000-0.034) ng/mL C-Reactive Protein (0.0-0.8) mg/dL Total Protein 6.4 (6.3-8.2) g/dL Albumin 3.8 (3.5-5.0) g/dL Urine Color Light Yellow Urine Appearance Clear (Clear) Urine pH 6.0 (5.0-8.0) Ur Specific [place] 1.017 (1.001-1.035) Urine Protein Negative (Negative) Urine Glucose (UA) 4+ H (Negative) Urine Ketones Negative (Negative) Urine Blood Negative (Negative) Urine Nitrite Negative (Negative) Urine Bilirubin Negative (Negative) Urine Urobilinogen <2.0 (<2.0) mg/dL Ur Leukocyte Esterase Negative (Negative) 03/03/21 03/03/21 03/03/21 Range/Units 05:37 05:37 06:42 WBC (3.8-10.6) k/uL RBC (4.30-5.90) m/uL Hgb (13.0-17.5) gm/dL Hct (39.0-53.0) % MCV (80.0-100.0) fL MCH (25.0-35.0) pg MCHC (31.0-37.0) g/dL RDW (11.5-15.5) % Plt Count (150-450) k/uL MPV Neutrophils % % Lymphocytes % % Monocytes % % Eosinophils % % Basophils % % Neutrophils # (1.3-7.7) k/uL Lymphocytes # (1.0-4.8) k/uL Monocytes # (0-1.0) k/uL Eosinophils # (0-0.7) k/uL Basophils # (0-0.2) k/uL ESR 35 H (0-15) mm/Hr PT (9.0-12.0) sec INR (<1.2) APTT (22.0-30.0) sec Sodium (137-145) mmol/L Potassium (3.5-5.1) mmol/L Chloride (98-107) mmol/L Carbon Dioxide (22-30) mmol/L Anion Gap mmol/L BUN (9-20) mg/dL Creatinine (0.66-1.25) mg/dL Est GFR (CKD-EPI)AfAm (>60 ml/min/1.73 sqM) Est GFR (CKD-EPI)NonAf (>60 ml/min/1.73 sqM) Glucose (74-99) mg/dL POC Glucose (mg/dL) 384 H (75-99) mg/dL POC Glu Motor Equipment Commanding Officer ID [place], [place] Plasma Lactic Acid Mahad (0.7-2.0) mmol/L Calcium (8.4-10.2) mg/dL Phosphorus (2.5-4.5) mg/dL Magnesium (1.6-2.3) mg/dL Total Bilirubin (0.2-1.3) mg/dL AST (17-59) U/L ALT (4-49) U/L Alkaline Phosphatase (38-126) U/L Troponin I <0.012 (0.000-0.034) ng/mL C-Reactive Protein (0.0-0.8) mg/dL Total Protein (6.3-8.2) g/dL Albumin (3.5-5.0) g/dL Urine Color Urine Appearance (Clear) Urine pH (5.0-8.0) Ur Specific [place] (1.001-1.035) Urine Protein (Negative) Urine Glucose (UA) (Negative) Urine Ketones (Negative) Urine Blood (Negative) Urine Nitrite (Negative) Urine Bilirubin (Negative) Urine Urobilinogen (<2.0) mg/dL Ur Leukocyte Esterase (Negative) 03/03/21 Range/Units 08:39 WBC (3.8-10.6) k/uL RBC (4.30-5.90) m/uL Hgb (13.0-17.5) gm/dL Hct (39.0-53.0) % MCV (80.0-100.0) fL MCH (25.0-35.0) pg MCHC (31.0-37.0) g/dL RDW (11.5-15.5) % Plt Count (150-450) k/uL MPV Neutrophils % % Lymphocytes % % Monocytes % % Eosinophils % % Basophils % % Neutrophils # (1.3-7.7) k/uL Lymphocytes # (1.0-4.8) k/uL Monocytes # (0-1.0) k/uL Eosinophils # (0-0.7) k/uL Basophils # (0-0.2) k/uL ESR (0-15) mm/Hr PT (9.0-12.0) sec INR (<1.2) APTT (22.0-30.0) sec Sodium (137-145) mmol/L Potassium (3.5-5.1) mmol/L Chloride (98-107) mmol/L Carbon Dioxide (22-30) mmol/L Anion Gap mmol/L BUN (9-20) mg/dL Creatinine (0.66-1.25) mg/dL Est GFR (CKD-EPI)AfAm (>60 ml/min/1.73 sqM) Est GFR (CKD-EPI)NonAf (>60 ml/min/1.73 sqM) Glucose (74-99) mg/dL POC Glucose (mg/dL) 262 H (75-99) mg/dL POC Glu Motor Equipment Commanding Officer ID [facility] Plasma Lactic Acid Mahad (0.7-2.0) mmol/L Calcium (8.4-10.2) mg/dL Phosphorus (2.5-4.5) mg/dL Magnesium (1.6-2.3) mg/dL Total Bilirubin (0.2-1.3) mg/dL AST (17-59) U/L ALT (4-49) U/L Alkaline Phosphatase (38-126) U/L Troponin I (0.000-0.034) ng/mL C-Reactive Protein (0.0-0.8) mg/dL Total Protein (6.3-8.2) g/dL Albumin (3.5-5.0) g/dL Urine Color Urine Appearance (Clear) Urine pH (5.0-8.0) Ur Specific [place] (1.001-1.035) Urine Protein (Negative) Urine Glucose (UA) (Negative) Urine Ketones (Negative) Urine Blood (Negative) Urine Nitrite (Negative) Urine Bilirubin (Negative) Urine Urobilinogen (<2.0) mg/dL Ur Leukocyte Esterase (Negative) - Radiology Data Radiology results: report reviewed (X-ray left foot does show significant swelling of left great toe with arthritis), image reviewed Disposition Clinical Impression: Cellulitis of great toe, right, Diabetic foot ulcer, Non-healing ulcer of left foot with fat layer exposed Narrative: ro OSteomyelitis Disposition: ADMITTED IP TO THIS HOSP Condition: Good Is patient prescribed a controlled substance at d/c from ED?: No
[2021-03-03] MEDS ORDERED: SODIUM CHLORIDE 0.9% 1,000 ML IV STA (05:23)
[2021-03-03] MEDS ORDERED: VANCOMYCIN IV PER PHARMACY 1 EACH MISC MISCELLANE PRN (05:25)
[2021-03-03 05:46] LABS: Basophils # (A) 0.1 k/uL (0-0.2); Basophils % (A) 1 %; Eosinophils # (A) 0.2 k/uL (0-0.7); Eosinophils % (A) 2 %; HCT 37.2 % (39.0-53.0); HGB 12.8 gm/dL (13.0-17.5); Lymphocytes # (A) 2.3 k/uL (1.0-4.8); Lymphocytes % (A) 26 %; MCH 31.1 pg (25.0-35.0); MCHC 34.4 g/dL (31.0-37.0); MCV 90.4 fL (80.0-100.0); Mean Platelet Volume 7.9; Monocytes # (A) 0.6 k/uL (0-1.0); Monocytes % (A) 7 %; Neutrophils # (A) 5.2 k/uL (1.3-7.7); Neutrophils % (A) 61 %; Platelet Count 302 k/uL (150-450); RBC 4.12 m/uL (4.30-5.90); WBC 8.5 k/uL (3.8-10.6)
--- NOTE | 2021-03-03 05:52 | XR ---
EXAMINATION TYPE: XR foot complete LT DATE OF EXAM: 03/03/2021 COMPARISON: NONE HISTORY: Pain TECHNIQUE: 3 views FINDINGS: There is soft tissue swelling of the forefoot. Metatarsals are intact. There is some narrow ing and spurring at the first MP joint. There are no erosions. There is no subluxation. Tarsal bones are intact. IMPRESSION: Soft tissue swelling. No fracture seen. 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
[2021-03-03 05:55] LABS: Partial Thromboplastin Time 24.3 sec (22.0-30.0); Prothrombin Time 10.6 sec (9.0-12.0)
[2021-03-03] MEDS ORDERED: VANCOMYCIN 1,750 MG in SODIUM CHLORIDE 0.9% 500 ML 500 ML IVPB ONE (06:00)
[2021-03-03 06:08] LABS: ALT 20 U/L (4-49); AST 18 U/L (17-59); African American GFR (CKD) >90 (>60 ml/min/1.73 sqM); Albumin 3.8 g/dL (3.5-5.0); Alkaline Phosphatase 101 U/L (38-126); Anion Gap 7 mmol/L; Blood Urea Nitrogen 12 mg/dL (9-20); Calcium 9.3 mg/dL (8.4-10.2); Carbon Dioxide 25 mmol/L (22-30); Chloride 100 mmol/L (98-107); Glucose 446 mg/dL (74-99); Non-African American GFR(CKD) >90 (>60 ml/min/1.73 sqM); Phosphorus 3.5 mg/dL (2.5-4.5); Potassium 4.1 mmol/L (3.5-5.1); Sodium 132 mmol/L (137-145); Total Bilirubin 0.8 mg/dL (0.2-1.3); Total Protein 6.4 g/dL (6.3-8.2)
[2021-03-03] MEDS ORDERED: SODIUM CHLORIDE 0.9% 1,000 ML IV ONE (06:29)
[2021-03-03] MEDS ORDERED: INSULIN REGULAR 100 UNIT/ML VIAL (IV) IV ONE (06:34)
[2021-03-03 06:39] LABS: Appearance,Urine Clear (Clear); Bilirubin,Urine Negative (Negative); Blood,Urine Negative (Negative); Color,Urine Light Yellow; Glucose,Urine (UA) 4+ (Negative); Ketones,Urine Negative (Negative); Leukocyte Esterase,Urine Negative (Negative); Nitrite,Urine Negative (Negative); Protein,Urine Negative (Negative); Specific Gravity,Urine 1.017 (1.001-1.035); Urobilinogen,Urine <2.0 mg/dL (<2.0)
[2021-03-03 06:43] LABS: Glucose,Whole Blood 384 mg/dL (75-99)
[2021-03-03] MEDS ORDERED: ALBUTEROL NEBULIZED 2.5 MG/3 ML INHALATION PRN (08:37)
[2021-03-03 08:41] LABS: Glucose,Whole Blood 262 mg/dL (75-99)
[2021-03-03] MEDS: INSULIN ASPART (NovoLOG) 100 UNIT/ML VIAL SQ SCH ×6 (08:42→21:04)
[2021-03-03] MEDS ORDERED: FUROSEMIDE 20 MG TAB PO SCH (09:00)
[2021-03-03] MEDS ORDERED: FAMOTIDINE 20 MG TAB PO SCH (09:00)
[2021-03-03] MEDS: DULoxetine HCL 60 MG CAPSULE.DR PO SCH (09:13)
[2021-03-03] MEDS: hydrALAZINE HCL 50 MG TAB PO SCH ×2 (09:13→21:05)
[2021-03-03] MEDS: glipiZIDE 10 MG TAB PO SCH (09:13)
[2021-03-03] MEDS: ATORVASTATIN 80 MG TAB PO SCH (09:13)
[2021-03-03] MEDS: ASPIRIN 81 MG PO SCH (09:13)
[2021-03-03] MEDS: carvediloL 12.5 MG TAB PO SCH ×2 (09:13→17:03)
[2021-03-03] MEDS: SPIRONOLACTONE 25 MG TAB PO SCH (09:13)
[2021-03-03] MEDS: LOSARTAN 50 MG TAB PO SCH (09:14)
[2021-03-03] MEDS: metFORMIN 500 MG TAB PO SCH ×2 (09:14→21:05)
[2021-03-03] MEDS ORDERED: INSULIN DETEMIR (LEVEMIR) 100 UNIT/ML SYR SQ SCH (09:30)
[2021-03-03] MEDS ORDERED: diazePAM 5 MG TAB PO STA (09:33)
--- NOTE | 2021-03-03 10:09 | US ---
EXAMINATION TYPE: US venous doppler duplex LE LT DATE OF EXAM: 03/03/2021 10:03 AM COMPARISON: NONE CLINICAL HISTORY: edema. infected left big toe, diabetic, neuropathy and no h/o dvt SIDE PERFORMED: Left TECHNIQUE: The lower extremity deep venous system is examined utilizing real time linear array sonog matthew with graded compression, doppler sonography and color-flow sonography. VESSELS IMAGED: Common Femoral Vein Deep Femoral Vein Greater Saphenous Vein * Femoral Vein Popliteal Vein Small Saphenous Vein * Proximal Calf Veins (* superficial vessels) Left Leg: Negative for DVT IMPRESSION: 1. Left lower extremity ultrasound negative for deep venous thrombosis.
--- NOTE | 2021-03-03 11:15 | P.HPIM ---
History of Present Illness H&P Date: 03/03/21 HISTORY OF PRESENT ILLNESS This is a 40-year-old male patient of Dr. Anne and Dr. Abad with past medical history of anterior ST elevated myocardial infarction status post PCI of the proximal to mid LAD on 11/20/2020 and PCI to the mid RCA on 11/1701/17/2021, ischemic cardiomyopathy with ejection fraction of 3540 percent, chronic systolic heart failure, hypertension, diabetes mellitus type 2, obesity. Patient was then hospitalized February 15 to the for palpitations with episodes of sinus tachycardia. Patient was discharged home. Patient states that he had follow-up with Dr. Abad last week and he doubled his Lasix dose due to lower extremity particularly left lower extremity swelling. He states he has had redness to the left great toe for about a week. This seems to started from a callus formation with inflammation in the entire great toe. Patient does have diabetic neuropathy bilateral feet. Patient is a large callus also on the right right toe with no signs of cellulitis or infection. Patient came into [facility] emergency center for evaluation. He was afebrile, heart rate in the 70s and 80s, blood pressure 126/84, pulse ox 96%. WBC 8.5, hemoglobin 12.8, platelet count 302. Sodium 132, potassium 4.1, chloride 100, CO2 25, BUN 11 creatinine 0.55. Blood sugar 446. Liver function tests were normal. Albumin 3.8. Troponin negative. Lactic acid 0.9. X-ray of the left foot revealed soft tissue swelling. No acute fracture. Osteoarthritis of the big toe. Venous ultrasound of the left lower extremity negative for DVT. Arterial ultrasound, MRI of the foot, consults with vascular surgery and infectious disease, patient started on Zosyn and vancomycin, admitted to the [facility] floor.. REVIEW OF SYSTEMS Constitutional: No fever, no chills, no night sweats. No weight change. No weakness, fatigue or lethargy. No daytime sleepiness. EENT: No headache. No blurred vision or double vision, no loss of vision. No loss of Hearing, no ringing in the ears, no dizziness. No nasal drainage or congestion. No epistaxis. No sore throat. Lungs: No shortness of breath, cough, no sputum production. No wheezing. Cardiovascular: No chest pain, no lower extremity edema. No palpitations. No paroxysmal nocturnal dyspnea. No orthopnea. No lightheadedness or dizziness. No syncopal episodes. Abdominal: No abdominal pain. No nausea, vomiting. No diarrhea. No constipation. No bloody or tarry stools.. No loss of appetite. Genitourinary: No dysuria, increased frequency, urgency. No urinary retention. Musculoskeletal: No myalgias. No muscle weakness, no gait dysfunction, no frequ ent falls. No back pain. No neck pain. Integumentary: Left great toe wounds, no lesions. No rash or pruritus. No unusual bruising. No change in hair or nails. Neurologic: No aphasia. No facial droop. No change in mentation. No head injury. No headache. No paralysis. No paresthesia. Psychiatric: No depression. No anxiety. No mood swings. Endocrine: Noted abnormal blood sugars. No weight change. No excessive sweating or thirst. No cold intolerance. SOCIAL HISTORY Patient works at [employer]. He is a lifelong nonsmoker, denies EtOH, illicit drug use. FAMILY HISTORY Patient is with 5 daughters who are healthy, he has one brother who is healthy, his dad in his 40s from coronary artery disease, mom is still alive with diabetes and coronary artery disease. PHYSICAL EXAMINATION Gen: This is a 40-year-old male. He is resting on the ER stretcher and appears to be comfortable and in no acute distress. HEENT: Head is atraumatic, normocephalic. Pupils equal, round. Sclerae is anicteric. NECK: Supple. No JVD. No lymphadenopathy. No thyromegaly. LUNGS: Clear to auscultation. No wheezes or rhonchi. No intercostal retractions. HEART: Regular rate and rhythm. No murmur. ABDOMEN: Soft. Bowel sounds are present. No masses. No tenderness. EXTREMITIES: 2+ left foot edema. Large callus on the medial left great toe with surrounding erythema, edema. Large callus to the right medial great toe with no erythema, edema. Unable to palpate dorsalis pedis on the left foot. 1+ dorsalis pedis on the right foot. NEUROLOGICAL: Patient is awake, alert and oriented x3. Cranial nerves 2 through 12 are grossly intact. ASSESSMENT AND PLAN 1. Left great toe cellulitis, rule out osteomyelitis. Patient started on Rocephin and vancomycin, consult with infectious disease, consult with vascular surgery for debridement. MRI of the left foot, sed rate and CRP ordered. 2. Possible peripheral artery disease. Consult with vascular surgery, arterial study ordered. 3. Ischemic cardiomyopathy with chronic systolic heart failure. Continue Coreg 25 mg twice daily, Lasix, Aldactone 50 mg daily. 4. Coronary artery disease with previous anterior ST elevated myocardial infarction status post PCI of the proximal to mid LAD on 11/20/2020 and PCI to t he mid RCA on 11/1701/17/2021. Continue Brilinta 90 mg twice daily, Coreg, Lipitor 80 mg daily, aspirin 81 mg daily. 5. Diabetes mellitus type 2, uncontrolled with hyperglycemia. Patient will be continued on Levemir 35 units at bedtime, metformin 1000 mg twice daily, glipizide 10 mg daily, NovoLog scale and NovoLog 12 units with meals scheduled. 6. Hypertension. Continue Coreg 25 mg twice daily, hydralazine 50 mg twice daily, losartan 100 mg daily. 6. Hyperlipidemia. Continue atorvastatin 80 mg daily. 7. Generalized anxiety disorder. Continue Cymbalta 60 mg daily. 8. Gastroesophageal reflux disease and GI prophylaxis. Pepcid daily. 9. DVT prophylaxis. heparin 5000 units subcu every 8 hours. Patient admitted to the hospital for a minimum of 2 night stay. DISCHARGE PLAN Home. Impression and plan of care have been directed as dictated by the signing physician. Kaye Bach nurse practitioner acting as scribe for signing physician. Past Medical History Past Medical History: Diabetes Mellitus, Hyperlipidemia, Hypertension Additional Past Medical History / Comment(s): neuropathy Last Myocardial Infarction Date:: 11/20/2020 History of Any Multi-Drug Resistant Organisms: None Reported Past Surgical History: Back Surgery, Hernia Repair Additional Past Surgical History / Comment(s): 4 cardiac stents 11/20/2020, 1 cardiac stent 11/23/2020 Past Anesthesia/Blood Transfusion Reactions: No Reported Reaction Past Psychological History: Depression Smoking Status: Never smoker Past Alcohol Use History: None Reported Past Drug Use History: None Reported - Past Family History Mother Family Medical History: Diabetes Mellitus Father Family Medical History: Congestive Heart Failure (CHF), Coronary Artery Disease (CAD), Diabetes Mellitus, Hypertension, Myocardial Infarction ([place]) Additional Family Medical History / Comment(s): father 2019 from [place] Medications and Allergies Home Medications Medication Instructions Recorded Confirmed Type Albuterol Sulfate [Proair Hfa] 2 puff INHALATION RT-Q4H PRN 11/20/20 03/03/21 History Aspirin EC [Ecotrin Low Dose] 81 mg PO DAILY 11/20/20 03/03/21 History DULoxetine HCL [Cymbalta] 60 mg PO DAILY 11/20/20 03/03/21 History Atorvastatin [Lipitor] 80 mg PO DAILY #30 tab 11/24/20 03/03/21 Rx Famotidine [Pepcid] 20 mg PO DAILY #30 tab 11/24/20 03/03/21 Rx INSULIN ASPART (NovoLOG) [NovoLOG 12 unit SQ AC-TID #1 vial 11/24/20 03/03/21 Rx (formulary)] Insulin Detemir (Levemir) [Levemir] 35 unit SQ DAILY #0 11/24/20 03/03/21 Rx Losartan [Cozaar] 100 mg PO DAILY #30 tab 11/24/20 03/03/21 Rx Nitroglycerin Sl Tabs [Nitrostat] 0.4 mg SUBLINGUAL Q5M PRN #25 tab 11/24/20 03/03/21 Rx Ticagrelor [Brilinta] 90 mg PO BID #60 tab 11/24/20 03/03/21 Rx metFORMIN HCL [Glucophage] 1,000 mg PO BID #0 11/24/20 03/03/21 Rx Furosemide [Lasix] 20 mg PO DAILY 02/15/21 03/03/21 History glipiZIDE [Glucotrol] 10 mg PO DAILY 02/15/21 03/03/21 History hydrALAZINE HCL [Apresoline] 50 mg PO BID 02/15/21 03/03/21 History Carvedilol [Coreg] 25 mg PO BID #60 tablet 02/16/21 03/03/21 Rx Spironolactone [Aldactone] 50 mg PO DAILY 03/03/21 03/03/21 History Allergies Allergy/AdvReac Type Severity Reaction Status Date / Time No Known Allergies Allergy Verified 03/03/21 07:32 Physical Exam Vitals: Vital Signs Temp Pulse Resp BP Pulse Ox 03/03/21 09:11 77 18 149/101 98 03/03/21 08:27 98.1 F 78 18 127/81 96 03/03/21 04:23 98.1 F 70 18 126/84 96 Intake and Output 03/02/21 03/03/21 03/03/21 22:59 06:59 14:59 Other: Weight 113.398 kg Results CBC & Chem 7: 03/03/21 05:37 03/03/21 05:37 Labs: Abnormal Lab Results - Last 24 Hours (Table) 03/03/21 03/03/21 03/03/21 Range/Units 05:37 05:37 05:37 RBC 4.12 L (4.30-5.90) m/uL Hgb 12.8 L (13.0-17.5) gm/dL Hct 37.2 L (39.0-53.0) % Sodium 132 L (137-145) mmol/L Creatinine 0.55 L (0.66-1.25) mg/dL Glucose 446 H (74-99) mg/dL POC Glucose (mg/dL) (75-99) mg/dL Urine Glucose (UA) 4+ H (Negative) 03/03/21 03/03/21 Range/Units 06:42 08:39 RBC (4.30-5.90) m/uL Hgb (13.0-17.5) gm/dL Hct (39.0-53.0) % Sodium (137-145) mmol/L Creatinine (0.66-1.25) mg/dL Glucose (74-99) mg/dL POC Glucose (mg/dL) 384 H 262 H (75-99) mg/dL Urine Glucose (UA) (Negative)
[2021-03-03] MEDS: TICAGRELOR 90 MG TAB PO SCH ×2 (11:34→11:44)
[2021-03-03] MEDS: PIPERACILLIN-TAZOBACTAM 3.375 GM in SODIUM CHLORIDE 0.9% 100 ML IVPB SCH ×2 (11:43→17:19)
[2021-03-03] MEDS ORDERED: VANCOMYCIN 1,750 MG in SODIUM CHLORIDE 0.9% 500 ML 500 ML IVPB SCH (12:00)
[2021-03-03 12:19] LABS: Glucose,Whole Blood 311 mg/dL (75-99)
[2021-03-03] MEDS ORDERED: VANCOMYCIN 1,500 MG in SODIUM CHLORIDE 0.9% 250 ML IVPB SCH (14:00)
--- NOTE | 2021-03-03 14:40 | P.GSCN ---
History of Present Illness Consult date: 03/03/21 History of present illness: Torito is a 40-year-old male with a significant past medical history including uncontrolled diabetes, hypertension and coronary artery disease requiring PCI in the past. 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 They attempted utilizing Lasix to decrease the swelling. Also in the meantime he began having increasing redness of his left great toe and presented for issues of cellulitis. He states he has had this area of callus for many years he has one similarly on the other toe. He has been using antibiotic ointment on this. He denies any fevers, chills, nausea, vomiting or issues otherwise at this time Past Medical History Past Medical History: Diabetes Mellitus, Hyperlipidemia, Hypertension Additional Past Medical History / Comment(s): neuropathy Last Myocardial Infarction Date:: 11/20/2020 History of Any Multi-Drug Resistant Organisms: None Reported Past Surgical History: Back Surgery, Hernia Repair Additional Past Surgical History / Comment(s): 4 cardiac stents 11/20/2020, 1 cardiac stent 11/23/2020 Past Anesthesia/Blood Transfusion Reactions: No Reported Reaction Past Psychological History: Depression Smoking Status: Never smoker Past Alcohol Use History: None Reported Past Drug Use History: None Reported - Past Family History Mother Family Medical History: Diabetes Mellitus Father Family Medical History: Congestive Heart Failure (CHF), Coronary Artery Disease (CAD), Diabetes Mellitus, Hypertension, Myocardial Infarction ([place]) Additional Family Medical History / Comment(s): father 2019 from [place] Medications and Allergies Home Medications Medication Instructions Recorded Confirmed Type Albuterol Sulfate [Proair Hfa] 2 puff INHALATION RT-Q4H PRN 11/20/20 03/03/21 History Aspirin EC [Ecotrin Low Dose] 81 mg PO DAILY 11/20/20 03/03/21 History DULoxetine HCL [Cymbalta] 60 mg PO DAILY 11/20/20 03/03/21 History Atorvastatin [Lipitor] 80 mg PO DAILY #30 tab 11/24/20 03/03/21 Rx Famotidine [Pepcid] 20 mg PO DAILY #30 tab 11/24/20 03/03/21 Rx INSULIN ASPART (NovoLOG) [NovoLOG 12 unit SQ AC-TID #1 vial 11/24/20 03/03/21 Rx (formulary)] Insulin Detemir (Levemir) [Levemir] 35 unit SQ DAILY #0 11/24/20 03/03/21 Rx Losartan [Cozaar] 100 mg PO DAILY #30 tab 11/24/20 03/03/21 Rx Nitroglycerin Sl Tabs [Nitrostat] 0.4 mg SUBLINGUAL Q5M PRN #25 tab 11/24/20 03/03/21 Rx Ticagrelor [Brilinta] 90 mg PO BID #60 tab 11/24/20 03/03/21 Rx metFORMIN HCL [Glucophage] 1,000 mg PO BID #0 11/24/20 03/03/21 Rx Furosemide [Lasix] 20 mg PO DAILY 02/15/21 03/03/21 History glipiZIDE [Glucotrol] 10 mg PO DAILY 02/15/21 03/03/21 History hydrALAZINE HCL [Apresoline] 50 mg PO BID 02/15/21 03/03/21 History Carvedilol [Coreg] 25 mg PO BID #60 tablet 02/16/21 03/03/21 Rx Spironolactone [Aldactone] 50 mg PO DAILY 03/03/21 03/03/21 History Allergies Allergy/AdvReac Type Severity Reaction Status Date / Time No Known Allergies Allergy Verified 03/03/21 07:32 Surgical - Exam Vital Signs Temp Pulse Resp BP Pulse Ox 98.1 F 70 18 126/84 96 03/03/21 04:23 03/03/21 04:23 03/03/21 04:23 03/03/21 04:23 03/03/21 04:23 Gen. is a pleasant cooperative male in no acute distress. HEENT is no cephalic, atraumatic, etc. he motion intact. Heart is regular. Lungs are clear bilaterally although diminished. Abdomen is soft obese nontender nondistended. Extremity show no clubbing, cyanosis or edema. He has palpable femoral, dorsalis pedis and posterior tibial pulses bilaterally. On the left great toe there is no area of gangrene and callus with some bogginess below After appropriate verbal consent, Sharp excisional debridement of the left great toe was performed the callus was removed and this did tunneled down to the level of the subcutaneous tissues. It was debrided to healthy-appearing granulation tissue the scalpel. The wound itself measures 3.7 x 3.0 x 0.2 cm Results - Labs 03/03/21 05:37 03/03/21 05:37 Abnormal Lab Results - Last 24 Hours (Table) 03/03/21 03/03/21 03/03/21 Range/Units 05:37 05:37 05:37 RBC 4.12 L (4.30-5.90) m/uL Hgb 12.8 L (13.0-17.5) gm/dL Hct 37.2 L (39.0-53.0) % Sodium 132 L (137-145) mmol/L Creatinine 0.55 L (0.66-1.25) mg/dL Glucose 446 H (74-99) mg/dL POC Glucose (mg/dL) (75-99) mg/dL Urine Glucose (UA) 4+ H (Negative) 03/03/21 03/03/21 03/03/21 Range/Units 06:42 08:39 12:18 RBC (4.30-5.90) m/uL Hgb (13.0-17.5) gm/dL Hct (39.0-53.0) % Sodium (137-145) mmol/L Creatinine (0.66-1.25) mg/dL Glucose (74-99) mg/dL POC Glucose (mg/dL) 384 H 262 H 311 H (75-99) mg/dL Urine Glucose (UA) (Negative) Diabetes panel 03/03/21 Range/Units 05:37 Sodium 132 L (137-145) mmol/L Potassium 4.1 (3.5-5.1) mmol/L Chloride 100 (98-107) mmol/L Carbon Dioxide 25 (22-30) mmol/L BUN 12 (9-20) mg/dL Creatinine 0.55 L (0.66-1.25) mg/dL Glucose 446 H (74-99) mg/dL Calcium 9.3 (8.4-10.2) mg/dL AST 18 (17-59) U/L ALT 20 (4-49) U/L Alkaline Phosphatase 101 (38-126) U/L Total Protein 6.4 (6.3-8.2) g/dL Albumin 3.8 (3.5-5.0) g/dL Calcium panel 03/03/21 Range/Units 05:37 Calcium 9.3 (8.4-10.2) mg/dL Phosphorus 3.5 (2.5-4.5) mg/dL Albumin 3.8 (3.5-5.0) g/dL Pituitary panel 03/03/21 Range/Units 05:37 Sodium 132 L (137-145) mmol/L Potassium 4.1 (3.5-5.1) mmol/L Chloride 100 (98-107) mmol/L Carbon Dioxide 25 (22-30) mmol/L BUN 12 (9-20) mg/dL Creatinine 0.55 L (0.66-1.25) mg/dL Glucose 446 H (74-99) mg/dL Calcium 9.3 (8.4-10.2) mg/dL Adrenal panel 03/03/21 Range/Units 05:37 Sodium 132 L (137-145) mmol/L Potassium 4.1 (3.5-5.1) mmol/L Chloride 100 (98-107) mmol/L Carbon Dioxide 25 (22-30) mmol/L BUN 12 (9-20) mg/dL Creatinine 0.55 L (0.66-1.25) mg/dL Glucose 446 H (74-99) mg/dL Calcium 9.3 (8.4-10.2) mg/dL Total Bilirubin 0.8 (0.2-1.3) mg/dL AST 18 (17-59) U/L ALT 20 (4-49) U/L Alkaline Phosphatase 101 (38-126) U/L Total Protein 6.4 (6.3-8.2) g/dL Albumin 3.8 (3.5-5.0) g/dL Assessment and Plan Assessment: Infected diabetic foot wound left great toe Uncontrolled diabetes Neuropathy Plan: At this point the overlying calluses been unroofed, does not appear to go significantly deep. I do believe he would benefit from local wound care. No further vascular workup from my standpoint is necessary given his palpable pedal pulses.
[2021-03-03 14:54] LABS: Glucose,Whole Blood 244 mg/dL (75-99)
[2021-03-03 16:21] LABS: Glucose,Whole Blood 231 mg/dL (75-99)
[2021-03-03] MEDS: HEPARIN SODIUM,PORCINE/PF 5,000 UNIT/0.5 ML SYRINGE SQ SCH (17:03)
[2021-03-03] MEDS: FUROSEMIDE 10 MG/ML 4 ML VIAL IV SCH (17:04)
[2021-03-03] MEDS ORDERED: PIPERACILLIN-TAZOBACTAM 3.375 GM in SODIUM CHLORIDE 0.9% 100 ML IVPB SCH (20:00)
[2021-03-03 20:44] LABS: Glucose,Whole Blood 107 mg/dL (75-99)
[2021-03-03] MEDS: ACETAMINOPHEN TAB 325 MG TAB PO PRN (21:05)
[2021-03-03 22:02] LABS: Glucose,Whole Blood 65 mg/dL (75-99)
[2021-03-03 22:29] LABS: Glucose,Whole Blood 89 mg/dL (75-99)
[2021-03-03 22:59] LABS: Glucose,Whole Blood 132 mg/dL (75-99)
[2021-03-04] MEDS: VANCOMYCIN 1,750 MG in SODIUM CHLORIDE 0.9% 500 ML 500 ML IVPB SCH ×3 (00:09→16:39)
[2021-03-04] MEDS: HEPARIN SODIUM,PORCINE/PF 5,000 UNIT/0.5 ML SYRINGE SQ SCH ×3 (00:09→16:37)
[2021-03-04 00:10] LABS: Glucose,Whole Blood 211 mg/dL (75-99)
[2021-03-04] MEDS: AMPICILLIN-SULBACTAM 3 GM in SODIUM CHLORIDE 0.9% 100 ML IVPB SCH ×4 (01:08→16:38)
[2021-03-04 06:48] LABS: Glucose,Whole Blood 234 mg/dL (75-99)
[2021-03-04 07:06] LABS: African American GFR (CKD) >90 (>60 ml/min/1.73 sqM); Non-African American GFR(CKD) >90 (>60 ml/min/1.73 sqM)
--- NOTE | 2021-03-04 07:18 | CONS ---
CONSULTATION DATE OF SERVICE: 03/03/2021 REASON FOR CONSULTATION: Diabetic foot infection. HISTORY OF PRESENT ILLNESS: The patient is a 40-year-old male with a past medical history significant for [place], cardiomyopathy, diabetes and obesity. The patient presented to the hospital for left big toe pain, swelling and redness. Apparently the patient mentioned he did have a callus on the plantar aspect of his left big toe that apparently fell off about a week ago. Subsequently did have some ulceration with new callus formation. Over the last few days the patient noticed his left big toe became more swollen, red and did have some drainage. The patient did have some chills but denies any fever. With these symptoms, the patient was evaluated by the ER physician. On arrival to the ER, the patient was afebrile. The patient did have a white count of 8.5, creatinine 0.55. The patient did have x-rays of the foot: Soft tissue swelling. No fractures seen. 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 The patient has been evaluated by Vascular Surgery. The patient did have debridement of his left big toe ulcer, no cultures were done. The patient has been treated with vancomycin and Zosyn. Infectious Disease was consulted for further management of antibiotic therapy. REVIEW OF SYSTEMS: Positive points have been mentioned in HPI. Rest of systems are negative. PAST MEDICAL HISTORY: Type 2 diabetes mellitus, coronary artery disease, cardiomyopathy, hypertension, hyperlipidemia, neuropathy. PAST SURGICAL HISTORY: Four cardiac stents, back surgery, hernia repair. SOCIAL HISTORY: No history of smoking, drinking or drug use. FAMILY HISTORY: Mother with history of diabetes. Father with history of congestive heart failure. ALLERGIES: No known drug allergies. MEDICATIONS: The patient is currently on Tylenol, Ventolin, aspirin, Lipitor, Coreg, Cymbalta, Lasix, Glucotrol, hydralazine, NovoLog, Levemir, Cozaar, Glucophage, vancomycin and Zosyn. PHYSICAL EXAMINATION: VITAL SIGNS: Blood pressure is 137/80 with a pulse of 65, temperature 98.5. He is 94% on room air. GENERAL DESCRIPTION: Patient is a middle-aged male lying in bed in no distress. No tachypnea or accessory muscles of respiration use. HEENT: Examination shows no pallor or scleral icterus. Oral mucous membrane is dry. NECK: Trachea central, no thyromegaly. LUNGS: Unlabored breathing, clear to auscultation anteriorly. HEART: S1-S2, regular rate and rhythm. ABDOMEN: Soft, no tenderness. No guarding or rigidity. EXTREMITIES: No edema of the feet. SKIN: No rash or mass palpable. NEUROLOGICAL: Patient is awake, alert, oriented times three. Mood and affect normal. Examination of the left big toe plantar aspect did have a wound post surgical debridement. Some swelling and redness of the left big toe. No foul-smelling drainage. Cultures were obtained. LABORATORY DATA: Hemoglobin is 12.8, white count 8.5. Sedimentation rate 35. BUN of 12, creatinine 0.55. Liver enzymes are normal. X-rays were negative for any bony changes. DIAGNOSTIC IMPRESSION AND PLAN: Patient with left big toe diabetic foot infection in this patient who did have infected callus, status post debridement and will need to cover for the polymicrobial . PLAN: 1. Local wound cultures to guide further antibiotic therapy. 2. The patient to continue the vancomycin, however, switch the Zosyn to Unasyn to decrease risk of nephrotoxicity. .. 3. Local wound care with dry Aquacel Silver dressing. 4. We will follow on clinical condition and culture to further adjust medication if needed. Thank you for this consultation. Will follow this patient along with you. MMODL / IJN: [id number] /
[2021-03-04] MEDS: INSULIN ASPART (NovoLOG) 100 UNIT/ML VIAL SQ SCH ×7 (07:20→21:08)
[2021-03-04] MEDS: INSULIN DETEMIR (LEVEMIR) 100 UNIT/ML SYR SQ SCH (07:21)
[2021-03-04] MEDS: FUROSEMIDE 10 MG/ML 4 ML VIAL IV SCH (08:49)
[2021-03-04] MEDS: metFORMIN 500 MG TAB PO SCH ×2 (09:37→21:05)
[2021-03-04] MEDS: SPIRONOLACTONE 25 MG TAB PO SCH (09:37)
[2021-03-04] MEDS: LOSARTAN 50 MG TAB PO SCH (09:37)
[2021-03-04] MEDS: carvediloL 12.5 MG TAB PO SCH ×2 (09:38→16:37)
[2021-03-04] MEDS: ASPIRIN 81 MG PO SCH (09:38)
[2021-03-04] MEDS: DULoxetine HCL 60 MG CAPSULE.DR PO SCH (09:38)
[2021-03-04] MEDS: glipiZIDE 10 MG TAB PO SCH (09:38)
[2021-03-04] MEDS: ATORVASTATIN 80 MG TAB PO SCH (09:38)
[2021-03-04] MEDS: TICAGRELOR 90 MG TAB PO SCH ×2 (09:38→21:06)
[2021-03-04] MEDS: hydrALAZINE HCL 50 MG TAB PO SCH ×2 (09:38→21:06)
--- NOTE | 2021-03-04 11:00 | P.PN ---
Subjective Progress Note Date: 03/04/21 Patient is seen and examined. No complaints. Feels like his lower extremity swelling has improved Objective - Vital Signs Vital signs: Vital Signs Temp 98.3 F 03/04/21 07:00 Pulse 85 03/04/21 07:00 Resp 18 03/04/21 08:00 BP 138/92 03/04/21 07:00 Pulse Ox 93 L 03/04/21 07:00 Intake & Output 03/03/21 03/04/21 03/04/21 18:59 06:59 18:59 Intake Total 2200 Balance 2200 Weight 113.398 kg 122.5 kg Intake: Intake, IV Titration 1700 Amount Ampicillin-Sulbactam 3 gm 100 In Sodium Chloride 0.9% 100 ml @ 200 mls/hr IVPB Q6HR [facility] Rx#:[id number] Piperacillin-Tazobactam 3 100 .375 gm In Sodium Chloride 0.9% 100 ml @ 25 mls/hr IVPB Q8H [facility] Rx#: [id number] Sodium Chloride 0.9% 1, 1000 000 ml @ 100 mls/hr IV . Q10H [facility] Rx#:[id number] Vancomycin 1,750 mg In 500 Sodium Chloride 0.9% 500 ml 500 ml @ 167 mls/hr IVPB ONCE [facility] Rx#: [id number] Oral 500 Other: # Voids 2 - Exam Gen. is a pleasant cooperative male in no acute distress. HEENT is normocephalic, atraumatic, extraocular motion intact. Neck is supple. Trachea is midline. Heart appears regular. Lungs are clear bilaterally. Abdomen is soft, nontender nondistended. Extremity show no clubbing, cyanosis there is still mild left lower extremity edema. The wrap appears intact and in place. - Labs CBC & Chem 7: 03/03/21 05:37 03/04/21 05:22 Labs: Abnormal Lab Results - Last 24 Hours (Table) 03/03/21 03/03/21 03/03/21 Range/Units 05:34 05:37 12:18 ESR 35 H (0-15) mm/Hr Creatinine (0.66-1.25) mg/dL POC Glucose (mg/dL) 311 H (75-99) mg/dL C-Reactive Protein 3.0 H (0.0-0.8) mg/dL 03/03/21 03/03/21 03/03/21 Range/Units 14:53 16:19 20:42 ESR (0-15) mm/Hr Creatinine (0.66-1.25) mg/dL POC Glucose (mg/dL) 244 H 231 H 107 H (75-99) mg/dL C-Reactive Protein (0.0-0.8) mg/dL 03/03/21 03/03/21 03/04/21 Range/Units 22:00 22:57 00:09 ESR (0-15) mm/Hr Creatinine (0.66-1.25) mg/dL POC Glucose (mg/dL) 65 L 132 H 211 H (75-99) mg/dL C-Reactive Protein (0.0-0.8) mg/dL 03/04/21 03/04/21 Range/Units 05:22 06:46 ESR (0-15) mm/Hr Creatinine 0.48 L (0.66-1.25) mg/dL POC Glucose (mg/dL) 234 H (75-99) mg/dL C-Reactive Protein (0.0-0.8) mg/dL Microbiology - Last 24 Hours (Table) 03/03/21 15:30 Gram Stain - Preliminary Foot - Left Wound Culture - Preliminary Assessment and Plan Assessment: Infected diabetic foot wound left great toe Uncontrolled diabetes Neuropathy Plan: Plan at this point continue local wound care. No further intervention from my standpoint given adequate appearing vascular interventions. May follow up with wound care as needed. They will contact me if further operative debridement become necessary. I will sign off at this time. Please let me know if I can be of further assistance
[2021-03-04 11:20] LABS: Glucose,Whole Blood 135 mg/dL (75-99)
--- NOTE | 2021-03-04 12:16 | P.CONS ---
History of Present Illness - Reason for Consult Consult date: 03/04/21 wound care - History of Present Illness 10-year-old patient with past medical history significant for uncontrolled diabetes. Patient is being evaluated by the wound care center for a nonhealing ulceration to the left foot great toe lateral aspect. The area was a callus that was deroofed by Dr. Wright. The ulceration measures 3.7 x 3.0 x 0.2 cm with granulation and slough noted within the wound bed. There does appear to be some tunneling to the midportion of the ulceration. The outer edge of the ulceration shows callus. Patient has decrease sensation to bilateral lower extremities. Review Of Systems: Constitutional: No fever, no chills, no night sweats. No weight change. No weakness, fatigue or lethargy. No daytime sleepiness. Integumentary:reports wounds, no lesions. No rash or pruritus. No unusual brui sing. No change in hair or nails. Physical exam: General Appearance: Alert, cooperative, no distress, appears stated age. Skin: See HPI all other Skin color, texture, tugor normal, no rashes or lesions. Neurologic: Alert oriented x3 Neck: 1. Diabetic foot ulcer 2. Nonhealing ulceration with fat layer exposure left great toe Plan: 1. Apply honey alginate, saline moistened gauze, dry gauze, rolled gauze secured with paper tape. Patient would benefit from a weekly debridements. Patient is agreeable to go to the wound care center where we'll be happy to see him. Discussed with patient the importance of foot care and keeping his blood sugars under control. Patient verbalized understanding. Thank you for the consultation any questions please contact the wound care center DNP note has been reviewed and discussed with Dr. Schofield and the impression and plan of care has been directed as dictated. Past Medical History Past Medical History: Diabetes Mellitus, Hyperlipidemia, Hypertension Additional Past Medical History / Comment(s): neuropathy Last Myocardial Infarction Date:: 11/20/2020 History of Any Multi-Drug Resistant Organisms: None Reported Past Surgical History: Back Surgery, Hernia Repair Additional Past Surgical History / Comment(s): 4 cardiac stents 11/20/2020, 1 cardiac stent 11/23/2020 Past Anesthesia/Blood Transfusion Reactions: No Reported Reaction Past Psychological History: Depression Smoking Status: Never smoker Past Alcohol Use History: None Reported Past Drug Use History: None Reported - Past Family History Mother Family Medical History: Diabetes Mellitus Father Family Medical History: Congestive Heart Failure (CHF), Coronary Artery Disease (CAD), Diabetes Mellitus, Hypertension, Myocardial Infarction (AR) Additional Family Medical History / Comment(s): father 2018 from [place] Medications and Allergies Home Medications Medication Instructions Recorded Confirmed Type Albuterol Sulfate [Proair Hfa] 2 puff INHALATION RT-Q4H PRN 11/20/20 03/03/21 History Aspirin EC [Ecotrin Low Dose] 81 mg PO DAILY 11/20/20 03/03/21 History DULoxetine HCL [Cymbalta] 60 mg PO DAILY 11/20/20 03/03/21 History Atorvastatin [Lipitor] 80 mg PO DAILY #30 tab 11/24/20 03/03/21 Rx Famotidine [Pepcid] 20 mg PO DAILY #30 tab 11/24/20 03/03/21 Rx INSULIN ASPART (NovoLOG) [NovoLOG 12 unit SQ AC-TID #1 vial 11/24/20 03/03/21 Rx (formulary)] Insulin Detemir (Levemir) [Levemir] 35 unit SQ DAILY #0 11/24/20 03/03/21 Rx Losartan [Cozaar] 100 mg PO DAILY #30 tab 11/24/20 03/03/21 Rx Nitroglycerin Sl Tabs [Nitrostat] 0.4 mg SUBLINGUAL Q5M PRN #25 tab 11/24/20 03/03/21 Rx Ticagrelor [Brilinta] 90 mg PO BID #60 tab 11/24/20 03/03/21 Rx metFORMIN HCL [Glucophage] 1,000 mg PO BID #0 11/24/20 03/03/21 Rx Furosemide [Lasix] 20 mg PO DAILY 02/15/21 03/03/21 History glipiZIDE [Glucotrol] 10 mg PO DAILY 02/15/21 03/03/21 History hydrALAZINE HCL [Apresoline] 50 mg PO BID 02/15/21 03/03/21 History Carvedilol [Coreg] 25 mg PO BID #60 tablet 02/16/21 03/03/21 Rx Spironolactone [Aldactone] 50 mg PO DAILY 03/03/21 03/03/21 History Allergies Allergy/AdvReac Type Severity Reaction Status Date / Time No Known Allergies Allergy Verified 03/03/21 07:32 Physical Exam Vitals: Vital Signs Temp Pulse Pulse Pulse Resp BP BP 03/04/21 08:00 18 03/04/21 07:00 98.3 F 85 18 03/04/21 01:55 98.1 F 81 14 03/03/21 21:04 91 03/03/21 19:20 18 03/03/21 19:15 98.5 F 75 16 03/03/21 18:51 98 F 77 16 133/87 03/03/21 15:29 98 F 77 16 133/87 03/03/21 14:53 86 18 147/89 BP Pulse Ox 03/04/21 08:00 03/04/21 07:00 138/92 93 L 03/04/21 01:55 122/77 95 03/03/21 21:04 133/88 03/03/21 19:20 03/03/21 19:15 137/88 94 L 03/03/21 18:51 94 L 03/03/21 15:29 94 L 03/03/21 14:53 97 Intake and Output 03/03/21 03/04/21 03/04/21 22:59 06:59 14:59 Intake Total 2200 Balance 2200 Intake: Intake, IV Titration 1700 Amount Ampicillin-Sulbactam 3 gm 100 In Sodium Chloride 0.9% 100 ml @ 200 mls/hr IVPB Q6HR [facility] Rx#:[id number] Piperacillin-Tazobactam 3 100 .375 gm In Sodium Chloride 0.9% 100 ml @ 25 mls/hr IVPB Q8H [facility] Rx#: [id number] Sodium Chloride 0.9% 1, 1000 000 ml @ 100 mls/hr IV . Q10H [facility] Rx#:[id number] Vancomycin 1,750 mg In 500 Sodium Chloride 0.9% 500 ml 500 ml @ 167 mls/hr IVPB ONCE [facility] Rx#: [id number] Oral 500 Other: # Voids 2 Weight 122.5 kg Results CBC & Chem 7: 03/03/21 05:37 03/04/21 05:22 Labs: Abnormal Lab Results - Last 24 Hours (Table) 03/03/21 03/03/21 03/03/21 Range/Units 05:34 05:37 12:18 ESR 35 H (0-15) mm/Hr Creatinine (0.66-1.25) mg/dL POC Glucose (mg/dL) 311 H (75-99) mg/dL C-Reactive Protein 3.0 H (0.0-0.8) mg/dL 03/03/21 03/03/21 03/03/21 Range/Units 14:53 16:19 20:42 ESR (0-15) mm/Hr Creatinine (0.66-1.25) mg/dL POC Glucose (mg/dL) 244 H 231 H 107 H (75-99) mg/dL C-Reactive Protein (0.0-0.8) mg/dL 03/03/21 03/03/21 03/04/21 Range/Units 22:00 22:57 00:09 ESR (0-15) mm/Hr Creatinine (0.66-1.25) mg/dL POC Glucose (mg/dL) 65 L 132 H 211 H (75-99) mg/dL C-Reactive Protein (0.0-0.8) mg/dL 03/04/21 03/04/21 03/04/21 Range/Units 05:22 06:46 11:19 ESR (0-15) mm/Hr Creatinine 0.48 L (0.66-1.25) mg/dL POC Glucose (mg/dL) 234 H 135 H (75-99) mg/dL C-Reactive Protein (0.0-0.8) mg/dL Microbiology - Last 24 Hours (Table) 03/03/21 15:30 Gram Stain - Preliminary Foot - Left Wound Culture - Preliminary Assessment and Plan (1) Diabetic foot ulcer Current Visit: Yes Status: Acute Code(s): E11.621 - TYPE 2 DIABETES MELLITUS WITH FOOT ULCER; L97.509 - NON-PRESSURE CHRONIC ULCER OTH PRT UNSP FOOT W UNSP SEVERITY SNOMED Code(s): 731122581 (2) Non-healing ulcer of left foot with fat layer exposed Current Visit: Yes Status: Acute Code(s): L97.522 - NON-PRS CHRONIC ULCER OTH PRT LEFT FOOT W FAT LAYER EXPOSED SNOMED Code(s): 628246845
[2021-03-04] MEDS ORDERED: diazePAM 5 MG TAB PO ONE (13:00)
--- NOTE | 2021-03-04 13:26 | P.PN ---
Subjective Progress Note Date: 03/04/21 HISTORY OF PRESENT ILLNESS This is a 40-year-old male patient of Dr. Anne and Dr. Abad with past medical history of anterior ST elevated myocardial infarction status post PCI of the proximal to mid LAD on 11/20/2020 and PCI to the mid RCA on 11/1701/17/2021, ischemic cardiomyopathy with ejection fraction of 3540 percent, chronic systolic heart failure, hypertension, diabetes mellitus type 2, obesity. Patient was then hospitalized February 15 to the for palpitations with episodes of sinus tachycardia. Patient was discharged home. Patient states that he had follow-up with Dr. Abad last week and he doubled his Lasix dose due to lower extremity particularly left lower extremity swelling. He states he has had redness to the left great toe for about a week. This seems to started from a callus formation with inflammation in the entire great toe. Patient does have diabetic neuropathy bilateral feet. Patient is a large callus also on the right right toe with no signs of cellulitis or infection. Patient came into [facility] emergency center for evaluation. He was afebrile, heart rate in the 70s and 80s, blood pressure 126/84, pulse ox 96%. WBC 8.5, hemoglobin 12.8, platelet count 302. Sodium 132, potassium 4.1, chloride 100, CO2 25, BUN 11 creatinine 0.55. Blood sugar 446. Liver function tests were normal. Albumin 3.8. Troponin negative. Lactic acid 0.9. X-ray of the left foot revealed soft tissue swelling. No acute fracture. Osteoarthritis of the big toe. Venous ultrasound of the left lower extremity negative for DVT. Arterial ultrasound, MRI of the foot, consults with vascular surgery and infectious disease, patient started on Zosyn and vancomycin, admitted to the [facility] floor. Patient was seen yesterday by Dr. Wright and underwent debridement of the callus on the left great toe with improvement of the site. He has also been seen by wound care team with plan for honey alginate and patient is agreeable to follow- up in the wound care center for weekly debridements. MRI is scheduled for today. Wound culture is in process. He has been afebrile, heart rate 85, blood pressure 138/92, pulse ox 93% on room air. Blood sugars have been running between 132 and 234. Patient has been seen by Dr. Louis and antibiotics have been changed to Unasyn 3 g IV piggyback every 6 hours. REVIEW OF SYSTEMS Constitutional: No fever, no chills, no night sweats. No weight change. No weakness, fatigue or lethargy. No daytime sleepiness. EENT: No headache. No blurred vision or double vision, no loss of vision. No loss of Hearing, no ringing in the ears, no dizziness. No nasal drainage or congestion. No epistaxis. No sore throat. Lungs: No shortness of breath, cough, no sputum production. No wheezing. Cardiovascular: No chest pain, no lower extremity edema. No palpitations. No p aroxysmal nocturnal dyspnea. No orthopnea. No lightheadedness or dizziness. No syncopal episodes. Abdominal: No abdominal pain. No nausea, vomiting. No diarrhea. No constipation. No bloody or tarry stools.. No loss of appetite. Genitourinary: No dysuria, increased frequency, urgency. No urinary retention. Musculoskeletal: No myalgias. No muscle weakness, no gait dysfunction, no frequent falls. No back pain. No neck pain. Integumentary: Left great toe wounds, no lesions. No rash or pruritus. No unusual bruising. No change in hair or nails. Neurologic: No aphasia. No facial droop. No change in mentation. No head injury. No headache. No paralysis. No paresthesia. Psychiatric: No depression. No anxiety. No mood swings. Endocrine: Noted abnormal blood sugars. No weight change. No excessive sweating or thirst. No cold intolerance. PHYSICAL EXAMINATION Gen: This is a 40-year-old male. He is resting on the ER stretcher and appears to be comfortable and in no acute distress. HEENT: Head is atraumatic, normocephalic. Pupils equal, round. Sclerae is anicteric. NECK: Supple. No JVD. No lymphadenopathy. No thyromegaly. LUNGS: Clear to auscultation. No wheezes or rhonchi. No intercostal retractions. HEART: Regular rate and rhythm. No murmur. ABDOMEN: Soft. Bowel sounds are present. No masses. No tenderness. EXTREMITIES: 2+ left foot edema. Wounds noted to the medial left great toe with minimal erythema, edema. NEUROLOGICAL: Patient is awake, alert and oriented x3. Cranial nerves 2 through 12 are grossly intact. ASSESSMENT AND PLAN 1. Left great toe cellulitis, rule out osteomyelitis. Consult with vascular surgery appreciated status post debridement. Consult with OLIVER Rubio is currently in place. MRI of the left foot to be done today. Patient has been seen by the wound care team and plan for follow-up weekly at the wound care center 2. Possible peripheral artery disease. Consult with vascular surgery, arterial study ordered. Report is pending. 3. Ischemic cardiomyopathy with chronic systolic heart failure. Continue Coreg 25 mg twice daily, Lasix, Aldactone 50 mg daily. 4. Coronary artery disease with previous anterior ST elevated myocardial infarction status post PCI of the proximal to mid LAD on 11/20/2020 and PCI to the mid RCA on 11/1701/17/2021. Continue Brilinta 90 mg twice daily, Coreg, Lipitor 80 mg daily, aspirin 81 mg daily. 5. Diabetes mellitus type 2, uncontrolled with hyperglycemia. Patient will be continued on Levemir 35 units at bedtime, metformin 1000 mg twice daily, glipizide 10 mg daily, NovoLog scale and NovoLog 12 units with meals scheduled. 6. Hypertension. Continue Coreg 25 mg twice daily, hydralazine 50 mg twice daily, losartan 100 mg daily. 6. Hyperlipidemia. Continue atorvastatin 80 mg daily. 7. Generalized anxiety disorder. Continue Cymbalta 60 mg daily. 8. Gastroesophageal reflux disease and GI prophylaxis. Pepcid daily. 9. DVT prophylaxis. heparin 5000 units subcu every 8 hours. DISCHARGE PLAN Home. Impression and plan of care have been directed as dictated by the signing physician. Kaye Bach nurse practitioner acting as scribe for signing physician. Objective - Vital Signs Vital signs: Vital Signs Temp 98.3 F 03/04/21 07:00 Pulse 85 03/04/21 07:00 Resp 18 03/04/21 08:00 BP 138/92 03/04/21 07:00 Pulse Ox 93 L 03/04/21 07:00 Intake & Output 03/03/21 03/04/21 03/04/21 18:59 06:59 18:59 Intake Total 2200 Balance 2200 Weight 113.398 kg 122.5 kg Intake: Intake, IV Titration 1700 Amount Ampicillin-Sulbactam 3 gm 100 In Sodium Chloride 0.9% 100 ml @ 200 mls/hr IVPB Q6HR [facility] Rx#:[id number] Piperacillin-Tazobactam 3 100 .375 gm In Sodium Chloride 0.9% 100 ml @ 25 mls/hr IVPB Q8H [facility] Rx#: [id number] Sodium Chloride 0.9% 1, 1000 000 ml @ 100 mls/hr IV . Q10H [facility] Rx#:[id number] Vancomycin 1,750 mg In 500 Sodium Chloride 0.9% 500 ml 500 ml @ 167 mls/hr IVPB ONCE [facility] Rx#: [id number] Oral 500 Other: # Voids 2 - Labs CBC & Chem 7: 03/03/21 05:37 03/04/21 05:22 Labs: Abnormal Lab Results - Last 24 Hours (Table) 03/03/21 03/03/21 03/03/21 Range/Units 05:34 05:37 12:18 ESR 35 H (0-15) mm/Hr Creatinine (0.66-1.25) mg/dL POC Glucose (mg/dL) 311 H (75-99) mg/dL C-Reactive Protein 3.0 H (0.0-0.8) mg/dL 03/03/21 03/03/21 03/03/21 Range/Units 14:53 16:19 20:42 ESR (0-15) mm/Hr Creatinine (0.66-1.25) mg/dL POC Glucose (mg/dL) 244 H 231 H 107 H (75-99) mg/dL C-Reactive Protein (0.0-0.8) mg/dL 03/03/21 03/03/21 03/04/21 Range/Units 22:00 22:57 00:09 ESR (0-15) mm/Hr Creatinine (0.66-1.25) mg/dL POC Glucose (mg/dL) 65 L 132 H 211 H (75-99) mg/dL C-Reactive Protein (0.0-0.8) mg/dL 03/04/21 03/04/21 Range/Units 05:22 06:46 ESR (0-15) mm/Hr Creatinine 0.48 L (0.66-1.25) mg/dL POC Glucose (mg/dL) 234 H (75-99) mg/dL C-Reactive Protein (0.0-0.8) mg/dL Microbiology - Last 24 Hours (Table) 03/03/21 15:30 Gram Stain - Preliminary Foot - Left Wound Culture - Preliminary
[2021-03-04] MEDS ORDERED: VANCOMYCIN TROUGH DUE 1 EACH MISC MISCELLANE ONE (15:00)
--- NOTE | 2021-03-04 15:02 | MR ---
EXAMINATION TYPE: MR foot LT wo/w con DATE OF EXAM: 03/04/2021 COMPARISON: Left foot x-ray from yesterday HISTORY: Wound on outside of LEFT big toe. Focal pain and swelling. Cellulitis rule out osteomyelitis . CONTRAST: Standard multiplanar, multisequence MRI departmental protocol utilizing 11.5 mL intravenous Gadavist gadolinium contrast. Imaging performed of the left foot. FINDINGS: Vitamin E marker placed at area of clinical concern along medial aspect first toe at level of the interphalangeal joint. There is diffuse soft tissue swelling and subcutaneous edema along with enhancing subcutaneous tissue diffusely at this level. The first distal phalanx shows areas of diffu se increased T2 signal seen best on sagittal STIR sequence. Coronal images show diminished T1 signal with areas of enhancement for reference series 6/01 and 1101 images 4 and 5 for reference. No definit marina enhancement in the first proximal phalanx. No well-formed fluid collection or abscess. No obvious ulceration. Slightly suboptimal due to inhomogeneity of fat saturation and wraparound artifact. IMPRESSION: Diffuse cellulitis first toe with suspicion for acute osteomyelitis involving portions of the first distal phalanx.
[2021-03-04 16:26] LABS: Glucose,Whole Blood 156 mg/dL (75-99)
--- NOTE | 2021-03-04 17:28 | PN ---
PROGRESS NOTE DATE OF SERVICE: 03/04/2021 REASON FOR FOLLOWUP: Left big toe diabetic foot infection. INTERVAL HISTORY: Patient is afebrile. The patient is currently breathing comfortably. Overall pain and discomfort to left big toe has decreased. No chest pain, shortness of breath, cough, no abdominal pain and no diarrhea. PHYSICAL EXAMINATION: Blood pressure 132/92 with a pulse of 85, temperature 98.3. He is 93% on room air. General description is a middle-aged male lying in bed in no distress. Respiratory system: Unlabored breathing, clear to auscultation anteriorly. Heart S1, S2. Regular rate and rhythm. Abdomen soft, no tenderness. Left big toe swelling and redness has decreased. LABS: Creatinine 0.48, did show evidence of diffuse cellulitis with suspicion of acute osteomyelitis. DIAGNOSTIC IMPRESSION AND PLAN: Patient with left big toe diabetic foot infection with concern for underlying osteomyelitis status post debridement. Cultures are pending. Patient will need a PICC line for outpatient antibiotic therapy. Continue supportive care. MMODL / IJN: [id number] /
[2021-03-04 20:51] LABS: Glucose,Whole Blood 78 mg/dL (75-99)
[2021-03-05] MEDS: HEPARIN SODIUM,PORCINE/PF 5,000 UNIT/0.5 ML SYRINGE SQ SCH ×3 (00:19→15:47)
[2021-03-05] MEDS: AMPICILLIN-SULBACTAM 3 GM in SODIUM CHLORIDE 0.9% 100 ML IVPB SCH ×4 (00:19→17:03)
[2021-03-05] MEDS: VANCOMYCIN 1,750 MG in SODIUM CHLORIDE 0.9% 500 ML 500 ML IVPB SCH ×3 (00:20→15:46)
[2021-03-05 06:52] LABS: Glucose,Whole Blood 149 mg/dL (75-99)
[2021-03-05] MEDS: FUROSEMIDE 10 MG/ML 4 ML VIAL IV SCH (07:08)
[2021-03-05] MEDS: INSULIN DETEMIR (LEVEMIR) 100 UNIT/ML SYR SQ SCH (07:30)
[2021-03-05] MEDS: carvediloL 12.5 MG TAB PO SCH ×2 (07:30→17:02)
[2021-03-05] MEDS: INSULIN ASPART (NovoLOG) 100 UNIT/ML VIAL SQ SCH ×7 (07:31→21:09)
[2021-03-05] MEDS: metFORMIN 500 MG TAB PO SCH ×2 (08:23→21:08)
[2021-03-05] MEDS: TICAGRELOR 90 MG TAB PO SCH ×2 (08:23→21:06)
[2021-03-05] MEDS: SPIRONOLACTONE 25 MG TAB PO SCH (08:23)
[2021-03-05] MEDS: DULoxetine HCL 60 MG CAPSULE.DR PO SCH ×2 (08:24→08:25)
[2021-03-05] MEDS: LOSARTAN 50 MG TAB PO SCH ×2 (08:24→08:32)
[2021-03-05] MEDS: ASPIRIN 81 MG PO SCH ×2 (08:24→08:26)
[2021-03-05] MEDS: glipiZIDE 10 MG TAB PO SCH (08:25)
[2021-03-05] MEDS: hydrALAZINE HCL 50 MG TAB PO SCH ×2 (08:28→21:05)
[2021-03-05] MEDS: ATORVASTATIN 80 MG TAB PO SCH (08:28)
[2021-03-05] MEDS: ONDANSETRON 4 MG/2 ML VIAL IVP PRN (11:12)
[2021-03-05 11:28] LABS: Glucose,Whole Blood 145 mg/dL (75-99)
--- NOTE | 2021-03-05 11:28 | P.DS ---
Providers Date of admission: 03/03/21 11:07 Expected date of discharge: 03/05/21 Attending physician: Eriberto Anne MD Consults: 03/03/21 09:29 Consult Physician Routine Consulting Provider: Jermaine Louis Consult Reason/Comments: cellulitis left great toe, r/o OM Do you want consulting provider notified?: Yes Primary care physician: Eriberto Anne MD Hospital Course: HISTORY OF PRESENT ILLNESS This is a 40-year-old male patient of Dr. Anne and Dr. Abad with past medical history of anterior ST elevated myocardial infarction status post PCI of the proximal to mid LAD on 11/20/2020 and PCI to the mid RCA on 11/1701/17/2021, ischemic cardiomyopathy with ejection fraction of 3540 percent, chronic systolic heart failure, hypertension, diabetes mellitus type 2, obesity. Patient was then hospitalized February 15 to the for palpitations with episodes of sinus tachycardia. Patient was discharged home. Patient states that he had follow-up with Dr. Abad last week and he doubled his Lasix dose due to lower extremity particularly left lower extremity swelling. He states he has had redness to the left great toe for about a week. This seems to started from a callus formation with inflammation in the entire great toe. Patient does have diabetic neuropathy bilateral feet. Patient is a large callus also on the right right toe with no signs of cellulitis or infection. Patient came into [facility] emergency center for evaluation. He was afebrile, heart rate in the 70s and 80s, blood pressure 126/84, pulse ox 96%. WBC 8.5, hemoglobin 12.8, platelet count 302. Sodium 132, potassium 4.1, chloride 100, CO2 25, BUN 11 creatinine 0.55. Blood sugar 446. Liver function tests were normal. Albumin 3.8. Troponin negative. Lactic acid 0.9. X-ray of the left foot revealed soft tissue swelling. No acute fracture. Osteoarthritis of the big toe. Venous ultrasound of the left lower extremity negative for DVT. Arterial ultrasound, MRI of the foot, consults with vascular surgery and infectious disease, patient started on Zosyn and vancomycin, admitted to the [facility] floor. 03/04: Patient was seen yesterday by Dr. Wright and underwent debridement of the callus on the left great toe with improvement of the site. He has also been seen by wound care team with plan for honey alginate and patient is agreeable to follow-up in the wound care center for weekly debridements. MRI is scheduled for today. Wound culture is in process. He has been afebrile, heart rate 85, blood pressure 138/92, pulse ox 93% on room air. Blood sugars have been running between 132 and 234. Patient has been seen by Dr. Louis and antibiotics have been changed to Unasyn 3 g IV piggyback every 6 hours. 03/05: ASSESSMENT AND PLAN 1. Left great toe cellulitis, rule out osteomyelitis. Consult with vascular surgery appreciated status post debridement. Consult with ID appreciated Unasyn is currently in place. MRI of the left foot to be done today. Patient has been seen by the wound care team and plan for follow-up weekly at the wound care center 2. Possible peripheral artery disease. Consult with vascular surgery, arterial study ordered. Report is pending. 3. Ischemic cardiomyopathy with chronic systolic heart failure. Continue Coreg 25 mg twice daily, Lasix, Aldactone 50 mg daily. 4. Coronary artery disease with previous anterior ST elevated myocardial infarction status post PCI of the proximal to mid LAD on 11/20/2020 and PCI to the mid RCA on 11/1701/17/2021. Continue Brilinta 90 mg twice daily, Coreg, Lipitor 80 mg daily, aspirin 81 mg daily. 5. Diabetes mellitus type 2, uncontrolled with hyperglycemia. Patient will be continued on Levemir 35 units at bedtime, metformin 1000 mg twice daily, glipizide 10 mg daily, NovoLog scale and NovoLog 12 units with meals scheduled. 6. Hypertension. Continue Coreg 25 mg twice daily, hydralazine 50 mg twice daily, losartan 100 mg daily. 6. Hyperlipidemia. Continue atorvastatin 80 mg daily. 7. Generalized anxiety disorder. Continue Cymbalta 60 mg daily. 8. Gastroesophageal reflux disease DISCHARGE PLAN Home. Impression and plan of care have been directed as dictated by the signing physician. Kaye Bach nurse practitioner acting as scribe for signing physician. Patient Condition at Discharge: Good Plan - Discharge Summary Discharge Rx Participant: No New Discharge Prescriptions: Continue DULoxetine HCL [Cymbalta] 60 mg PO DAILY Albuterol Sulfate [Proair Hfa] 2 puff INHALATION RT-Q4H PRN PRN Reason: Shortness Of Breath INSULIN ASPART (NovoLOG) [NovoLOG (formulary)] 12 unit SQ AC-TID #1 vial Famotidine [Pepcid] 20 mg PO DAILY #30 tab Insulin Detemir (Levemir) [Levemir] 35 unit SQ DAILY #0 Aspirin EC [Ecotrin Low Dose] 81 mg PO DAILY Ticagrelor [Brilinta] 90 mg PO BID #60 tab Losartan [Cozaar] 100 mg PO DAILY #30 tab Atorvastatin [Lipitor] 80 mg PO DAILY #30 tab Nitroglycerin Sl Tabs [Nitrostat] 0.4 mg SUBLINGUAL Q5M PRN #25 tab PRN Reason: Chest Pain metFORMIN HCL [Glucophage] 1,000 mg PO BID #0 glipiZIDE [Glucotrol] 10 mg PO DAILY hydrALAZINE HCL [Apresoline] 50 mg PO BID Carvedilol [Coreg] 25 mg PO BID #60 tablet Spironolactone [Aldactone] 50 mg PO DAILY Changed Furosemide [Lasix] 40 mg PO DAILY #60 tab Discharge Medication List Albuterol Sulfate [Proair Hfa] 2 puff INHALATION RT-Q4H PRN 11/20/20 [History] Aspirin EC [Ecotrin Low Dose] 81 mg PO DAILY 11/20/20 [History] DULoxetine HCL [Cymbalta] 60 mg PO DAILY 11/20/20 [History] Atorvastatin [Lipitor] 80 mg PO DAILY #30 tab 11/24/20 [Rx] Famotidine [Pepcid] 20 mg PO DAILY #30 tab 11/24/20 [Rx] INSULIN ASPART (NovoLOG) [NovoLOG (formulary)] 12 unit SQ AC-TID #1 vial 11/24/20 [Rx] Insulin Detemir (Levemir) [Levemir] 35 unit SQ DAILY #0 11/24/20 [Rx] Losartan [Cozaar] 100 mg PO DAILY #30 tab 11/24/20 [Rx] Nitroglycerin Sl Tabs [Nitrostat] 0.4 mg SUBLINGUAL Q5M PRN #25 tab 11/24/20 [Rx] Ticagrelor [Brilinta] 90 mg PO BID #60 tab 11/24/20 [Rx] metFORMIN HCL [Glucophage] 1,000 mg PO BID #0 11/24/20 [Rx] glipiZIDE [Glucotrol] 10 mg PO DAILY 02/15/21 [History] hydrALAZINE HCL [Apresoline] 50 mg PO BID 02/15/21 [History] Carvedilol [Coreg] 25 mg PO BID #60 tablet 02/16/21 [Rx] Spironolactone [Aldactone] 50 mg PO DAILY 03/03/21 [History] Furosemide [Lasix] 40 mg PO DAILY #60 tab 03/05/21 [Rx] Follow up Appointment(s)/Referral(s): [facility], [NON-STAFF] - ([facility] will call you to set up a visit to begin your outpatient IV antibiotic teaching. Your first visit will be on: . ) [facility] [NON-STAFF] - ([facility] will deliver supplies on: . They will call prior to delivery. ) [facility] [NON-STAFF] - 1 Week Eriberto Anne MD [Primary Care Provider] - 1 Week Jermaine Louis MD [STAFF PHYSICIAN] - 1 Week Activity/Diet/Wound Care/Special Instructions: Metrologist is checking coverage for outpatient IV antibiotics. Discharge Disposition: HOME WITH HOME HEALTH SERVICES
[2021-03-05] MEDS ORDERED: LIDOCAINE 1% INJ 10MG/ML (20 ML MDV) ONE (13:12)
--- NOTE | 2021-03-05 14:22 | IR ---
PICC LINE PLACEMENT: HISTORY: Infection requiring long-term antibiotic therapy PROCEDURE: Ultrasound and fluoroscopic guidance of PICC line placement. COMPLICATIONS: None ANESTHESIA: 1. 1% Lidocaine locally. FINDINGS/TECHNIQUE: The procedure was explained to the patient. The risks, complications, benefits and alternatives were discussed and any questions were answered. Informed consent was obtained. The patient was placed supine on the fluoroscopic table and prepped and draped in the usual sterile fash ion. Utilizing a 21 gauge needle and sonographic and fluoroscopic guidance, access in the left basi lic vein was achieved and there is placement of a 0.018 guidewire. The vein is patent. A 4-F sheath was placed over the guidewire. The guidewire and dilator were removed and a 4-F. PICC line was plac ed through the sheath with the tip at the level of the SVC. The sheath was removed, the catheter was flushed and sutured into position. The patient was stable throughout the procedure and remained sta ble upon discharge from the Department of Radiology. The vein puncture was patent under ultrasound. A wolf scale image was obtained to document patency of the vein punctured. All elements of the maximal barrier technique were utilized. FLUOROSCOPY TIME: 0.1 minutes and one image submitted IMPRESSION: Successful PICC line placement under ultrasound and fluoroscopic guidance.
--- NOTE | 2021-03-05 15:02 | P.PN ---
Subjective Progress Note Date: 03/05/21 HISTORY OF PRESENT ILLNESS This is a 40-year-old male patient of Dr. Anne and Dr. Abad with past medical history of anterior ST elevated myocardial infarction status post PCI of the proximal to mid LAD on 11/20/2020 and PCI to the mid RCA on 11/1701/17/2021, ischemic cardiomyopathy with ejection fraction of 3540 percent, chronic systolic heart failure, hypertension, diabetes mellitus type 2, obesity. Patient was then hospitalized February 15 to the for palpitations with episodes of sinus tachycardia. Patient was discharged home. Patient states that he had follow-up with Dr. Abad last week and he doubled his Lasix dose due to lower extremity particularly left lower extremity swelling. He states he has had redness to the left great toe for about a week. This seems to started from a callus formation with inflammation in the entire great toe. Patient does have diabetic neuropathy bilateral feet. Patient is a large callus also on the right right toe with no signs of cellulitis or infection. Patient came into [facility] emergency center for evaluation. He was afebrile, heart rate in the 70s and 80s, blood pressure 126/84, pulse ox 96%. WBC 8.5, hemoglobin 12.8, platelet count 302. Sodium 132, potassium 4.1, chloride 100, CO2 25, BUN 11 creatinine 0.55. Blood sugar 446. Liver function tests were normal. Albumin 3.8. Troponin negative. Lactic acid 0.9. X-ray of the left foot revealed soft tissue swelling. No acute fracture. Osteoarthritis of the big toe. Venous ultrasound of the left lower extremity negative for DVT. Arterial ultrasound, MRI of the foot, consults with vascular surgery and infectious disease, patient started on Zosyn and vancomycin, admitted to the [facility] floor. Patient was seen yesterday by Dr. Wright and underwent debridement of the callus on the left great toe with improvement of the site. He has also been seen by wound care team with plan for honey alginate and patient is agreeable to follow- up in the wound care center for weekly debridements. MRI is scheduled for today. Wound culture is in process. He has been afebrile, heart rate 85, blood pressure 138/92, pulse ox 93% on room air. Blood sugars have been running between 132 and 234. Patient has been seen by Dr. Louis and antibiotics have been changed to Unasyn 3 g IV piggyback every 6 hours. 03/05: The patient has some nausea this morning for which Zofran added. We will order a PICC line and Dr. Louis is planning on 6 weeks of IV antibiotics as MRI of the foot revealed diffuse site cellulitis of the first toe with suspicion of acute osteomyelitis involving portions of the first distal phalanx. Wound culture has not been finalized but does show gram-negative bacilli, strep galactorrhea and Aide. Patient has been afebrile, heart rate 84, blood pressure 143/81, pulse ox 96% on room air. Capillary blood glucose running between 78 and 156. Anticipate that arrangements cannot be made for him to be discharged until Monday as Dr. Louis is waiting for culture reports to be finalized. REVIEW OF SYSTEMS Constitutional: No fever, no chills, no night sweats. No weight change. No wea kness, fatigue or lethargy. No daytime sleepiness. EENT: No headache. No blurred vision or double vision, no loss of vision. No loss of Hearing, no ringing in the ears, no dizziness. No nasal drainage or congestion. No epistaxis. No sore throat. Lungs: No shortness of breath, cough, no sputum production. No wheezing. Cardiovascular: No chest pain, no lower extremity edema. No palpitations. No paroxysmal nocturnal dyspnea. No orthopnea. No lightheadedness or dizziness. No syncopal episodes. Abdominal: No abdominal pain. No nausea, vomiting. No diarrhea. No constipation. No bloody or tarry stools.. No loss of appetite. Genitourinary: No dysuria, increased frequency, urgency. No urinary retention. Musculoskeletal: No myalgias. No muscle weakness, no gait dysfunction, no nena quent falls. No back pain. No neck pain. Integumentary: Left great toe wounds, no lesions. No rash or pruritus. No unusual bruising. No change in hair or nails. Neurologic: No aphasia. No facial droop. No change in mentation. No head injury. No headache. No paralysis. No paresthesia. Psychiatric: No depression. No anxiety. No mood swings. Endocrine: Noted abnormal blood sugars. No weight change. No excessive sweating or thirst. No cold intolerance. PHYSICAL EXAMINATION Gen: This is a 40-year-old male. He is resting on the ER stretcher and appears to be comfortable and in no acute distress. HEENT: Head is atraumatic, normocephalic. Pupils equal, round. Sclerae is anicteric. NECK: Supple. No JVD. No lymphadenopathy. No thyromegaly. LUNGS: Clear to auscultation. No wheezes or rhonchi. No intercostal retractions. HEART: Regular rate and rhythm. No murmur. ABDOMEN: Soft. Bowel sounds are present. No masses. No tenderness. EXTREMITIES: 2+ left foot edema. Wounds noted to the medial left great toe with minimal erythema, edema. NEUROLOGICAL: Patient is awake, alert and oriented x3. Cranial nerves 2 through 12 are grossly intact. ASSESSMENT AND PLAN 1. Left great toe cellulitis, rule out osteomyelitis. Consult with vascular surgery appreciated status post debridement. Consult with ID appreciated Unasyn is currently in place. MRI of the left foot with suspicion for acute osteomyelitis. Patient has been seen by the wound care team and plan for follow-up weekly at the wound care center. PICC line has been ordered and inserted. 2. Possible peripheral artery disease. Consult with vascular surgery, arterial study ordered. Report is pending. 3. Ischemic cardiomyopathy with chronic systolic heart failure. Continue Coreg 25 mg twice daily, Lasix, Aldactone 50 mg daily. 4. Coronary artery disease with previous anterior ST elevated myocardial infarction status post PCI of the proximal to mid LAD on 11/20/2020 and PCI to the mid RCA on 11/1701/17/2021. Continue Brilinta 90 mg twice daily, Coreg, Lipitor 80 mg daily, aspirin 81 mg daily. 5. Diabetes mellitus type 2, uncontrolled with hyperglycemia. Patient will be continued on Levemir 35 units at bedtime, metformin 1000 mg twice daily, glipizide 10 mg daily, NovoLog scale and NovoLog 12 units with meals scheduled. 6. Hypertension. Continue Coreg 25 mg twice daily, hydralazine 50 mg twice daily, losartan 100 mg daily. 6. Hyperlipidemia. Continue atorvastatin 80 mg daily. 7. Generalized anxiety disorder. Continue Cymbalta 60 mg daily. 8. Gastroesophageal reflux disease and GI prophylaxis. Pepcid daily. 9. DVT prophylaxis. heparin 5000 units subcu every 8 hours. DISCHARGE PLAN Home. Impression and plan of care have been directed as dictated by the signing physician. Kaye Bach nurse practitioner acting as scribe for signing physician. Objective - Vital Signs Vital signs: Vital Signs Temp 97.9 F 03/05/21 07:00 Pulse 85 03/05/21 07:00 Resp 19 03/05/21 07:45 BP 170/115 03/05/21 07:00 Pulse Ox 94 L 03/05/21 07:00 Intake & Output 03/04/21 03/05/21 03/05/21 18:59 06:59 18:59 Intake Total 480 Balance 480 Weight 123.1 kg Intake: Oral 480 Other: # Voids 3 2 - Labs CBC & Chem 7: 03/03/21 05:37 03/04/21 05:22 Labs: Abnormal Lab Results - Last 24 Hours (Table) 03/04/21 03/05/21 03/05/21 Range/Units 16:25 06:50 11:27 POC Glucose (mg/dL) 156 H 149 H 145 H (75-99) mg/dL Microbiology - Last 24 Hours (Table) 03/03/21 15:30 Gram Stain - Preliminary Foot - Left Wound Culture - Preliminary Gram Neg Bacilli Strep agalactiae - (group b) Aide albicans
[2021-03-05] MEDS: ACETAMINOPHEN TAB 325 MG TAB PO PRN (15:44)
[2021-03-05 16:30] LABS: Glucose,Whole Blood 106 mg/dL (75-99)
[2021-03-05 20:32] LABS: Glucose,Whole Blood 91 mg/dL (75-99)
[2021-03-06] MEDS: AMPICILLIN-SULBACTAM 3 GM in SODIUM CHLORIDE 0.9% 100 ML IVPB SCH ×3 (01:03→10:53)
[2021-03-06] MEDS: VANCOMYCIN 1,750 MG in SODIUM CHLORIDE 0.9% 500 ML 500 ML IVPB SCH ×2 (01:03→07:51)
[2021-03-06] MEDS: HEPARIN SODIUM,PORCINE/PF 5,000 UNIT/0.5 ML SYRINGE SQ SCH ×4 (01:05→23:11)
[2021-03-06 06:48] LABS: Glucose,Whole Blood 99 mg/dL (75-99)
[2021-03-06] MEDS ORDERED: VANCOMYCIN TROUGH DUE 1 EACH MISC MISCELLANE ONE (07:00)
[2021-03-06] MEDS: INSULIN ASPART (NovoLOG) 100 UNIT/ML VIAL SQ SCH ×7 (07:08→22:01)
[2021-03-06] MEDS: DULoxetine HCL 60 MG CAPSULE.DR PO SCH (07:49)
[2021-03-06] MEDS: LOSARTAN 50 MG TAB PO SCH (07:49)
[2021-03-06] MEDS: ASPIRIN 81 MG PO SCH (07:50)
[2021-03-06] MEDS: FUROSEMIDE 10 MG/ML 4 ML VIAL IV SCH (07:50)
[2021-03-06] MEDS: ATORVASTATIN 80 MG TAB PO SCH (07:50)
[2021-03-06] MEDS: hydrALAZINE HCL 50 MG TAB PO SCH ×2 (07:50→22:00)
[2021-03-06] MEDS: glipiZIDE 10 MG TAB PO SCH (07:50)
[2021-03-06] MEDS: SPIRONOLACTONE 25 MG TAB PO SCH (07:50)
[2021-03-06] MEDS: carvediloL 12.5 MG TAB PO SCH ×2 (07:50→15:29)
[2021-03-06] MEDS: metFORMIN 500 MG TAB PO SCH ×2 (07:50→22:00)
[2021-03-06] MEDS: TICAGRELOR 90 MG TAB PO SCH ×2 (07:50→22:00)
[2021-03-06] MEDS: INSULIN DETEMIR (LEVEMIR) 100 UNIT/ML SYR SQ SCH (07:51)
[2021-03-06] MEDS: ONDANSETRON 4 MG/2 ML VIAL IVP PRN ×2 (07:58→17:15)
[2021-03-06 08:47] LABS: African American GFR (CKD) >90 (>60 ml/min/1.73 sqM); Non-African American GFR(CKD) >90 (>60 ml/min/1.73 sqM)
--- NOTE | 2021-03-06 11:14 | P.DS ---
Providers Date of admission: 03/03/21 11:07 Attending physician: Eriberto Anne MD Consults: 03/03/21 09:29 Consult Physician Routine Consulting Provider: Jermaine Louis Consult Reason/Comments: cellulitis left great toe, r/o OM Do you want consulting provider notified?: Yes Primary care physician: Eriberto Anne MD Hospital Course: This is a 40-year-old male patient of Dr. Anne and Dr. Abad with past medical history of anterior ST elevated myocardial infarction status post PCI of the proximal to mid LAD on 11/20/2020 and PCI to the mid RCA on 11/1701/17/2021, ischemic cardiomyopathy with ejection fraction of 3540 percent, chronic systolic heart failure, hypertension, diabetes mellitus type 2, obesity. Patient was then hospitalized February 15 to the for palpitations with episodes of sinus tachycardia. Patient was discharged home. Patient states that he had follow-up with Dr. Abad last week and he doubled his Lasix dose due to lower extremity particularly left lower extremity swelling. He states he has had redness to the left great toe for about a week. This seems to started from a callus formation with inflammation in the entire great toe. Patient does have diabetic neuropathy bilateral feet. Patient is a large callus also on the right right toe with no signs of cellulitis or infection. Patient came into [facility] emergency center for evaluation. He was afebrile, heart rate in the 70s and 80s, blood pressure 126/84, pulse ox 96%. WBC 8.5, hemoglobin 12.8, platelet count 302. Sodium 132, potassium 4.1, chloride 100, CO2 25, BUN 11 creatinine 0.55. Blood sugar 446. Liver function tests were normal. Albumin 3.8. Troponin negative. Lactic acid 0.9. X-ray of the left foot revealed soft tissue swelling. No acute fracture. Osteoarthritis of the big toe. Venous ultrasound of the left lower extremity negative for DVT. Arterial ultrasound, MRI of the foot, consults with vascular surgery and infectious disease, patient started on Zosyn and vancomycin, [facility] Patient was seen yesterday by Dr. Wright and underwent debridement of the callus on the left great toe with improvement of the site. He has also been seen by wound care team with plan for honey alginate and patient is agreeable to follow- up in the wound care center for weekly debridements. MRI is scheduled for today. Wound culture is in process. He has been afebrile, heart rate 85, blood pressure 138/92, pulse ox 93% on room air. Blood sugars have been running between 132 and 234. Patient has been seen by Dr. Louis and antibiotics have b een changed to Unasyn 3 g IV piggyback every 6 hours. 03/05: The patient has some nausea this morning for which Zofran added. We will order a PICC line and Dr. Louis is planning on 6 weeks of IV antibiotics as MRI of the foot revealed diffuse site cellulitis of the first toe with suspicion of acute osteomyelitis involving portions of the first distal phalanx. Wound culture has not been finalized but does show gram-negative bacilli, strep galactorrhea and Aide. Patient has been afebrile, heart rate 84, blood pressure 143/81, pulse ox 96% on room air. Capillary blood glucose running between 78 and 156. Anticipate that arrangements cannot be made for him to be discharged until Monday as Dr. Louis is waiting for culture reports to be finalized. 03/06: Wound cultures are finalized. Patient has PICC line in place. Awaiting approval for at home IV coverage. Case management is in process. Patient is upset that he has not been able to go home. No complaints or concerns at this time. ASSESSMENT AND PLAN 1. Left great toe cellulitis with osteomyelitis. 2. Possible peripheral artery disease. 3. Ischemic cardiomyopathy with chronic systolic heart failure. 4. Coronary artery disease with previous anterior ST elevated myocardial infarction status post PCI of the proximal to mid LAD on 11/20/2020 and PCI to the mid RCA on 11/1701/17/2021. 5. Diabetes mellitus type 2, uncontrolled with hyperglycemia. 6. Hypertension. 6. Hyperlipidemia. 7. Generalized anxiety disorder. 8. Gastroesophageal reflux disease DISCHARGE Disposition: Home with [facility] Impression and plan of care have been directed as dictated by the signing physician. Melissa Thomson nurse practitioner acting as scribe for signing physician. Patient Condition at Discharge: Good Plan - Discharge Summary Discharge Rx Participant: No New Discharge Prescriptions: Continue DULoxetine HCL [Cymbalta] 60 mg PO DAILY Albuterol Sulfate [Proair Hfa] 2 puff INHALATION RT-Q4H PRN PRN Reason: Shortness Of Breath INSULIN ASPART (NovoLOG) [NovoLOG (formulary)] 12 unit SQ AC-TID #1 vial Famotidine [Pepcid] 20 mg PO DAILY #30 tab Insulin Detemir (Levemir) [Levemir] 35 unit SQ DAILY #0 Aspirin EC [Ecotrin Low Dose] 81 mg PO DAILY Ticagrelor [Brilinta] 90 mg PO BID #60 tab Losartan [Cozaar] 100 mg PO DAILY #30 tab Atorvastatin [Lipitor] 80 mg PO DAILY #30 tab Nitroglycerin Sl Tabs [Nitrostat] 0.4 mg SUBLINGUAL Q5M PRN #25 tab PRN Reason: Chest Pain metFORMIN HCL [Glucophage] 1,000 mg PO BID #0 glipiZIDE [Glucotrol] 10 mg PO DAILY hydrALAZINE HCL [Apresoline] 50 mg PO BID Carvedilol [Coreg] 25 mg PO BID #60 tablet Spironolactone [Aldactone] 50 mg PO DAILY Changed Furosemide [Lasix] 40 mg PO DAILY #60 tab Discharge Medication List Albuterol Sulfate [Proair Hfa] 2 puff INHALATION RT-Q4H PRN 11/20/20 [History] Aspirin EC [Ecotrin Low Dose] 81 mg PO DAILY 11/20/20 [History] DULoxetine HCL [Cymbalta] 60 mg PO DAILY 11/20/20 [History] Atorvastatin [Lipitor] 80 mg PO DAILY #30 tab 11/24/20 [Rx] Famotidine [Pepcid] 20 mg PO DAILY #30 tab 11/24/20 [Rx] INSULIN ASPART (NovoLOG) [NovoLOG (formulary)] 12 unit SQ AC-TID #1 vial 10/30 02/17 [Rx] Insulin Detemir (Levemir) [Levemir] 35 unit SQ DAILY #0 11/24/20 [Rx] Losartan [Cozaar] 100 mg PO DAILY #30 tab 11/24/20 [Rx] Nitroglycerin Sl Tabs [Nitrostat] 0.4 mg SUBLINGUAL Q5M PRN #25 tab 11/24/20 [Rx] Ticagrelor [Brilinta] 90 mg PO BID #60 tab 11/24/20 [Rx] metFORMIN HCL [Glucophage] 1,000 mg PO BID #0 11/24/20 [Rx] glipiZIDE [Glucotrol] 10 mg PO DAILY 02/15/21 [History] hydrALAZINE HCL [Apresoline] 50 mg PO BID 02/15/21 [History] Carvedilol [Coreg] 25 mg PO BID #60 tablet 02/16/21 [Rx] Spironolactone [Aldactone] 50 mg PO DAILY 03/03/21 [History] Furosemide [Lasix] 40 mg PO DAILY #60 tab 03/05/21 [Rx] Follow up Appointment(s)/Referral(s): Eriberto Anne MD [Primary Care Provider] - 1 Week (office closed at this time - please call to arrange appointment) [facility], [NON-STAFF] - ([facility] will call you to set up a visit to begin your outpatient IV antibiotic teaching. Your first visit will be on: . ) [facility],Infusion [NON-STAFF] - ([facility] will deliver supplies on: . They will call prior to delivery. ) [facility] [NON-STAFF] - 1 Week (Please call Wound Center on Monday after 0800hrs to arrange next wound care appointment) Jermaine Louis MD [STAFF PHYSICIAN] - 03/15/21 2:45 pm Activity/Diet/Wound Care/Special Instructions: [employer] is checking coverage for outpatient IV antibiotics. Discharge Disposition: HOME WITH HOME HEALTH SERVICES
[2021-03-06 11:39] LABS: Glucose,Whole Blood 110 mg/dL (75-99)
[2021-03-06] MEDS: ERTAPENEM 1 GM in SODIUM CHLORIDE 0.9% 50 ML IVPB SCH (15:28)
--- NOTE | 2021-03-06 16:17 | PN ---
PROGRESS NOTE DATE OF SERVICE: 03/06/2021 REASON FOR FOLLOWUP: Left big toe diabetic foot infection with underlying osteomyelitis. INTERVAL HISTORY: Patient is afebrile. The patient is breathing comfortably. The patient is complaining of pain to the left big toe. No chest pain, shortness of breath or cough. No abdominal pain or diarrhea. PHYSICAL EXAMINATION: Blood pressure 157/100 with a pulse of 89, temperature 98.4. He is 99% on room air. General description is a middle-aged male lying in bed in no distress. Respiratory system: Unlabored breathing, clear to auscultation anteriorly. Heart S1, S2. Regular rate and rhythm. Abdomen soft, no tenderness. Left big toe swelling and redness, ( ) no drainage. LABS: Creatinine 0.47. Wound culture finalized with strep, Aide albicans an ESBL E coli. DIAGNOSTIC IMPRESSION AND PLAN: Patient with left big toe osteomyelitis. Culture has been finalized with ESBL E coli. Plan is for Invanz 1 g daily for a total of six weeks, local wound care with dry Aquacel dressing and close outpatient followup condition. MMODL / IJN: [id number] /
[2021-03-06 16:50] LABS: Glucose,Whole Blood 91 mg/dL (75-99)
[2021-03-06 20:27] LABS: Glucose,Whole Blood 112 mg/dL (75-99)
[2021-03-07 06:56] LABS: Glucose,Whole Blood 104 mg/dL (75-99)
[2021-03-07] MEDS: INSULIN ASPART (NovoLOG) 100 UNIT/ML VIAL SQ SCH ×7 (08:00→20:54)
[2021-03-07] MEDS: carvediloL 12.5 MG TAB PO SCH ×2 (08:04→17:05)
[2021-03-07] MEDS: TICAGRELOR 90 MG TAB PO SCH ×2 (08:04→20:54)
[2021-03-07] MEDS: HEPARIN SODIUM,PORCINE/PF 5,000 UNIT/0.5 ML SYRINGE SQ SCH ×3 (08:04→23:58)
[2021-03-07] MEDS: FUROSEMIDE 10 MG/ML 4 ML VIAL IV SCH (08:04)
[2021-03-07] MEDS: SPIRONOLACTONE 25 MG TAB PO SCH (08:04)
[2021-03-07] MEDS: ATORVASTATIN 80 MG TAB PO SCH (08:05)
[2021-03-07] MEDS: hydrALAZINE HCL 50 MG TAB PO SCH ×2 (08:05→20:53)
[2021-03-07] MEDS: metFORMIN 500 MG TAB PO SCH ×2 (08:05→20:54)
[2021-03-07] MEDS: LOSARTAN 50 MG TAB PO SCH (08:05)
[2021-03-07] MEDS: glipiZIDE 10 MG TAB PO SCH (08:05)
[2021-03-07] MEDS: DULoxetine HCL 60 MG CAPSULE.DR PO SCH (08:05)
[2021-03-07] MEDS: INSULIN DETEMIR (LEVEMIR) 100 UNIT/ML SYR SQ SCH (08:05)
[2021-03-07] MEDS: ASPIRIN 81 MG PO SCH (08:06)
--- NOTE | 2021-03-07 11:16 | P.PN ---
Subjective Progress Note Date: 03/07/21 HISTORY OF PRESENT ILLNESS This is a 40-year-old male patient of Dr. Anne and Dr. Abad with past medical history of anterior ST elevated myocardial infarction status post PCI of the proximal to mid LAD on 11/20/2020 and PCI to the mid RCA on 11/1701/17/2021, ischemic cardiomyopathy with ejection fraction of 3540 percent, chronic systolic heart failure, hypertension, diabetes mellitus type 2, obesity. Patient was then hospitalized February 15 to the for palpitations with episodes of sinus tachycardia. Patient was discharged home. Patient states that he had follow-up with Dr. Abad last week and he doubled his Lasix dose due to lower extremity particularly left lower extremity swelling. He states he has had redness to the left great toe for about a week. This seems to started from a callus formation with inflammation in the entire great toe. Patient does have diabetic neuropathy bilateral feet. Patient is a large callus also on the right right toe with no signs of cellulitis or infection. Patient came into [facility] emergency center for evaluation. He was afebrile, heart rate in the 70s and 80s, blood pressure 126/84, pulse ox 96%. WBC 8.5, hemoglobin 12.8, platelet count 302. Sodium 132, potassium 4.1, chloride 100, CO2 25, BUN 11 creatinine 0.55. Blood sugar 446. Liver function tests were normal. Albumin 3.8. Troponin negative. Lactic acid 0.9. X-ray of the left foot revealed soft tissue swelling. No acute fracture. Osteoarthritis of the big toe. Venous ultrasound of the left lower extremity negative for DVT. Arterial ultrasound, MRI of the foot, consults with vascular surgery and infectious disease, patient started on Zosyn and vancomycin, admitted to the [facility] floor. Patient was seen yesterday by Dr. Wright and underwent debridement of the callus on the left great toe with improvement of the site. He has also been seen by wound care team with plan for honey alginate and patient is agreeable to follow- up in the wound care center for weekly debridements. MRI is scheduled for today. Wound culture is in process. He has been afebrile, heart rate 85, blood pressure 138/92, pulse ox 93% on room air. Blood sugars have been running between 132 and 234. Patient has been seen by Dr. Louis and antibiotics have been changed to Unasyn 3 g IV piggyback every 6 hours. 03/05: The patient has some nausea this morning for which Zofran added. We will order a PICC line and Dr. Louis is planning on 6 weeks of IV antibiotics as MRI of the foot revealed diffuse site cellulitis of the first toe with suspicion of acute osteomyelitis involving portions of the first distal phalanx. Wound culture has not been finalized but does show gram-negative bacilli, strep galactorrhea and Aide. Patient has been afebrile, heart rate 84, blood pressure 143/81, pulse ox 96% on room air. Capillary blood glucose running between 78 and 156. Anticipate that arrangements cannot be made for him to be discharged until Monday as Dr. Louis is waiting for culture reports to be finalized. 03/06:Wound cultures are finalized. Patient has PICC line in place. Awaiting approval for at home IV coverage. Case management is in process. Patient is upset that he has not been able to go home. No complaints or concerns at this time. 03/07: Unable to discharge patient yesterday because the IV antibiotics for home was not that finalized. We will wait for Monday for discharge. Patient is resting comfortably without any complaints or concerns. Patient is questioning when he can return to work. Dressing is in place. Patient was instructed to follow up with wound care. REVIEW OF SYSTEMS Constitutional: No fever, no chills, no night sweats. No weight change. No weakness, fatigue or lethargy. No daytime sleepiness. EENT: No headache. No blurred vision or double vision, no loss of vision. No loss of Hearing, no ringing in the ears, no dizziness. No nasal drainage or congestion. No epistaxis. No sore throat. Lungs: No shortness of breath, cough, no sputum production. No wheezing. Cardiovascular: No chest pain, no lower extremity edema. No palpitations. No paroxysmal nocturnal dyspnea. No orthopnea. No lightheadedness or dizziness. No syncopal episodes. Abdominal: No abdominal pain. No nausea, vomiting. No diarrhea. No constipation. No bloody or tarry stools.. No loss of appetite. Genitourinary: No dysuria, increased frequency, urgency. No urinary retention. Musculoskeletal: No myalgias. No muscle weakness, no gait dysfunction, no frequent falls. No back pain. No neck pain. Integumentary: Left great toe wounds, no lesions. No rash or pruritus. No unusual bruising. No change in hair or nails. Neurologic: No aphasia. No facial droop. No change in mentation. No head injury. No headache. No paralysis. No paresthesia. Psychiatric: No depression. No anxiety. No mood swings. Endocrine: Noted abnormal blood sugars. No weight change. No excessive sweating or thirst. No cold intolerance. PHYSICAL EXAMINATION Gen: This is a 40-year-old male. He is resting on the ER stretcher and appears to be comfortable and in no acute distress. HEENT: Head is atraumatic, normocephalic. Pupils equal, round. Sclerae is anicteric. NECK: Supple. No JVD. No lymphadenopathy. No thyromegaly. LUNGS: Clear to auscultation. No wheezes or rhonchi. No intercostal retractions. HEART: Regular rate and rhythm. No murmur. ABDOMEN: Soft. Bowel sounds are present. No masses. No tenderness. EXTREMITIES: 2+ left foot edema. Wounds noted to the medial left great toe with minimal erythema, edema. NEUROLOGICAL: Patient is awake, alert and oriented x3. Cranial nerves 2 through 12 are grossly intact. ASSESSMENT AND PLAN 1. Left great toe cellulitis, rule out osteomyelitis. Consult with vascular surgery appreciated status post debridement. Consult with ID appreciated Unasyn is currently in place. MRI of the left foot with suspicion for acute osteomyelitis. Patient has been seen by the wound care team and plan for follow-up weekly at the wound care center. PICC line has been ordered and inserted. Awaiting insurance for arrangements for at home IV antibiotics. 2. Possible peripheral artery disease. Consult with vascular surgery, arterial study ordered. Report is pending. 3. Ischemic cardiomyopathy with chronic systolic heart failure. Continue Coreg 25 mg twice daily, Lasix, Aldactone 50 mg daily. 4. Coronary artery disease with previous anterior ST elevated myocardial infarction status post PCI of the proximal to mid LAD on 11/20/2020 and PCI to the mid RCA on 11/1701/17/2021. Continue Brilinta 90 mg twice daily, Coreg, Lipitor 80 mg daily, aspirin 81 mg daily. 5. Diabetes mellitus type 2, uncontrolled with hyperglycemia. Patient will be continued on Levemir 35 units at bedtime, metformin 1000 mg twice daily, glipizide 10 mg daily, NovoLog scale and NovoLog 12 units with meals scheduled. 6. Hypertension. Continue Coreg 25 mg twice daily, hydralazine 50 mg twice daily, losartan 100 mg daily. 6. Hyperlipidemia. Continue atorvastatin 80 mg daily. 7. Generalized anxiety disorder. Continue Cymbalta 60 mg daily. 8. Gastroesophageal reflux disease and GI prophylaxis. Pepcid daily. 9. DVT prophylaxis. heparin 5000 units subcu every 8 hours. DISCHARGE PLAN Home. Impression and plan of care have been directed as dictated by the signing physician. Melissa Thomson nurse practitioner acting as scribe for signing physician. Objective - Vital Signs Vital signs: Vital Signs Temp 98.3 F 03/07/21 07:40 Pulse 89 03/07/21 07:40 Resp 16 03/07/21 07:40 BP 143/86 03/07/21 07:40 Pulse Ox 96 03/07/21 07:40 Intake & Output 03/06/21 03/07/21 03/07/21 18:59 06:59 18:59 Intake Total 50 50 Balance 50 50 Weight 118 kg Intake: Intake, IV Titration 50 50 Amount Ertapenem 1 gm In Sodium 50 50 Chloride 0.9% 50 ml @ 100 mls/hr IVPB Q24H [facility] Rx# :[id number] Other: # Voids 1 - Labs CBC & Chem 7: 03/03/21 05:37 03/06/21 07:08 Labs: Abnormal Lab Results - Last 24 Hours (Table) 03/06/21 03/06/21 03/07/21 Range/Units 11:37 20:24 06:54 POC Glucose (mg/dL) 110 H 112 H 104 H (75-99) mg/dL
[2021-03-07 11:27] LABS: Glucose,Whole Blood 203 mg/dL (75-99)
[2021-03-07] MEDS: ERTAPENEM 1 GM in SODIUM CHLORIDE 0.9% 50 ML IVPB SCH (15:12)
--- NOTE | 2021-03-07 15:57 | PN ---
PROGRESS NOTE DATE OF SERVICE: 03/07/2021 REASON FOR FOLLOWUP: Left big toe osteomyelitis. INTERVAL HISTORY: The patient is afebrile. The patient is breathing comfortably. The patient denies having any chest pain, shortness of breath or cough. No abdominal pain. No worsening pain to the left big toe. PHYSICAL EXAMINATION: Blood pressure 130/85, pulse of 78, temperature 98. He is 94% on room air. General description is a middle-aged male lying in bed in no distress. Respiratory system: Unlabored breathing, clear to auscultation anteriorly. Heart S1, S2. Regular rate and rhythm. Abdomen soft, no tenderness.: Left big toe is currently dressed. No obvious drainage on the dressing. LABS: No new labs have been obtained today. DIAGNOSTIC IMPRESSION AND PLAN: Patient with left big toe diabetic foot infection with underlying osteomyelitis, culture with ESBL E coli, Streptococcus agalactiae. He is on Invanz. Waiting for the IV antibiotic regimen on discharge. Total duration of antibiotic will be six weeks. Continue supportive care. MMODL / IJN: [id number] /
[2021-03-07 16:56] LABS: Glucose,Whole Blood 87 mg/dL (75-99)
[2021-03-07 20:08] LABS: Glucose,Whole Blood 237 mg/dL (75-99)
[2021-03-08 01:02] VITALS: PULSE 81
[2021-03-08 06:51] LABS: Glucose,Whole Blood 151 mg/dL (75-99)
[2021-03-08] MEDS: LOSARTAN 50 MG TAB PO SCH (08:03)
[2021-03-08] MEDS: ATORVASTATIN 80 MG TAB PO SCH (08:03)
[2021-03-08] MEDS: DULoxetine HCL 60 MG CAPSULE.DR PO SCH (08:03)
[2021-03-08] MEDS: carvediloL 12.5 MG TAB PO SCH (08:03)
[2021-03-08] MEDS: metFORMIN 500 MG TAB PO SCH (08:03)
[2021-03-08] MEDS: ASPIRIN 81 MG PO SCH (08:03)
[2021-03-08] MEDS: TICAGRELOR 90 MG TAB PO SCH (08:03)
[2021-03-08] MEDS: SPIRONOLACTONE 25 MG TAB PO SCH (08:04)
[2021-03-08] MEDS: hydrALAZINE HCL 50 MG TAB PO SCH (08:04)
[2021-03-08] MEDS: FUROSEMIDE 10 MG/ML 4 ML VIAL IV SCH (08:04)
[2021-03-08] MEDS: INSULIN DETEMIR (LEVEMIR) 100 UNIT/ML SYR SQ SCH (08:04)
[2021-03-08] MEDS: glipiZIDE 10 MG TAB PO SCH (08:04)
[2021-03-08] MEDS: HEPARIN SODIUM,PORCINE/PF 5,000 UNIT/0.5 ML SYRINGE SQ SCH ×2 (08:05→15:21)
[2021-03-08] MEDS: INSULIN ASPART (NovoLOG) 100 UNIT/ML VIAL SQ SCH ×4 (08:05→11:35)
[2021-03-08] MEDS: ONDANSETRON 4 MG/2 ML VIAL IVP PRN (08:13)
[2021-03-08] MEDS ORDERED: FAMOTIDINE 20 MG TAB PO SCH (09:00)
--- NOTE | 2021-03-08 10:16 | P.DS ---
Providers Date of admission: 03/03/21 11:07 Expected date of discharge: 03/08/21 Attending physician: Eriberto Anne MD Consults: 03/03/21 09:29 Consult Physician Routine Consulting Provider: Jermaine Louis Consult Reason/Comments: cellulitis left great toe, r/o OM Do you want consulting provider notified?: Yes Primary care physician: Eriberto Anne MD Hospital Course: Hospital Course: This is a 40-year-old male patient of Dr. Anne and Dr. Abad with past medical history of anterior ST elevated myocardial infarction status post PCI of the proximal to mid LAD on 11/20/2020 and PCI to the mid RCA on 11/1701/17/2021, ischemic cardiomyopathy with ejection fraction of 3540 percent, chronic systolic heart failure, hypertension, diabetes mellitus type 2, obesity. Patient was then hospitalized February 15 to the for palpitations with episodes of sinus tachycardia. Patient was discharged home. Patient states that he had follow-up with Dr. Abad last week and he doubled his Lasix dose due to lower extremity particularly left lower extremity swelling. He states he has had redness to the left great toe for about a week. This seems to started from a callus formation with inflammation in the entire great toe. Patient does have diabetic neuropathy bilateral feet. Patient is a large callus also on the right right toe with no signs of cellulitis or infection. Patient came into [facility] emergency center for evaluation. He was afebrile, heart rate in the 70s and 80s, blood pressure 126/84, pulse ox 96%. WBC 8.5, hemoglobin 12.8, platelet count 302. Sodium 132, potassium 4.1, chloride 100, CO2 25, BUN 11 creatinine 0.55. Blood sugar 446. Liver function tests were normal. Albumin 3.8. Troponin negative. Lactic acid 0.9. X-ray of the left foot revealed soft tissue swelling. No acute fracture. Osteoarthritis of the big toe. Venous ultrasound of the left lower extremity negative for DVT. Arterial ultrasound, MRI of the foot, consults with vascular surgery and infectious disease, patient started on Zosyn and vancomycin, admitted to the [facility] floor. Patient was seen yesterday by Dr. Wright and underwent debridement of the callus on the left great toe with improvement of the site. He has also been seen by wound care team with plan for honey alginate and patient is agreeable to follow- up in the wound care center for weekly debridements. MRI is scheduled for today. Wound culture is in process. He has been afebrile, heart rate 85, blood pressure 138/92, pulse ox 93% on room air. Blood sugars have been running between 132 and 234. Patient has been seen by Dr. Louis and antibiotics have been changed to Unasyn 3 g IV piggyback every 6 hours. 03/05: The patient has some nausea this morning for which Zofran added. We will order a PICC line and Dr. Louis is planning on 6 weeks of IV antibiotics as MRI of the foot revealed diffuse site cellulitis of the first toe with suspicion of acute osteomyelitis involving portions of the first distal phalanx. Wound culture has not been finalized but does show gram-negative bacilli, strep galactorrhea and Aide. Patient has been afebrile, heart rate 84, blood pressure 143/81, pulse ox 96% on room air. Capillary blood glucose running between 78 and 156. Anticipate that arrangements cannot be made for him to be discharged until Monday as Dr. Louis is waiting for culture reports to be finalized. 03/06:Wound cultures are finalized. Patient has PICC line in place. Awaiting approval for at home IV coverage. Case management is in process. Patient is upset that he has not been able to go home. No complaints or concerns at this time. 03/07: Unable to discharge patient yesterday because the IV antibiotics for home was not that finalized. We will wait for Monday for discharge. Patient is resting comfortably without any complaints or concerns. Patient is questioning when he can return to work. Dressing is in place. Patient was instructed to follow up with wound care. 03/08: Wound cultures are finalized with E. coli, strep agalactiae group B and Aide albicans. Patient has PICC line in place. Awaiting approval for at home IV coverage. Patient will be discharged home today in stable condition. ASSESSMENT AND PLAN 1. Left great toe cellulitis with osteomyelitis. 2. Possible peripheral artery disease. 3. Ischemic cardiomyopathy with chronic systolic heart failure. 4. Coronary artery disease with previous anterior ST elevated myocardial infarction status post PCI of the proximal to mid LAD on 11/20/2020 and PCI to the mid RCA on 11/1701/17/2021. 5. Diabetes mellitus type 2, uncontrolled with hyperglycemia. 6. Hypertension. 6. Hyperlipidemia. 7. Generalized anxiety disorder. 8. Gastroesophageal reflux disease DISCHARGE Disposition: Home with [facility] Impression and plan of care have been directed as dictated by the signing physician. Kaye Bach nurse practitioner acting as scribe for signing physician. Patient Condition at Discharge: Good Plan - Discharge Summary Discharge Rx Participant: No New Discharge Prescriptions: Continue DULoxetine HCL [Cymbalta] 60 mg PO DAILY Albuterol Sulfate [Proair Hfa] 2 puff INHALATION RT-Q4H PRN PRN Reason: Shortness Of Breath INSULIN ASPART (NovoLOG) [NovoLOG (formulary)] 12 unit SQ AC-TID #1 vial Famotidine [Pepcid] 20 mg PO DAILY #30 tab Insulin Detemir (Levemir) [Levemir] 35 unit SQ DAILY #0 Aspirin EC [Ecotrin Low Dose] 81 mg PO DAILY Ticagrelor [Brilinta] 90 mg PO BID #60 tab Losartan [Cozaar] 100 mg PO DAILY #30 tab Atorvastatin [Lipitor] 80 mg PO DAILY #30 tab Nitroglycerin Sl Tabs [Nitrostat] 0.4 mg SUBLINGUAL Q5M PRN #25 tab PRN Reason: Chest Pain metFORMIN HCL [Glucophage] 1,000 mg PO BID #0 glipiZIDE [Glucotrol] 10 mg PO DAILY hydrALAZINE HCL [Apresoline] 50 mg PO BID Carvedilol [Coreg] 25 mg PO BID #60 tablet Spironolactone [Aldactone] 50 mg PO DAILY Changed Furosemide [Lasix] 40 mg PO DAILY #60 tab Discharge Medication List Albuterol Sulfate [Proair Hfa] 2 puff INHALATION RT-Q4H PRN 11/20/20 [History] Aspirin EC [Ecotrin Low Dose] 81 mg PO DAILY 11/20/20 [History] DULoxetine HCL [Cymbalta] 60 mg PO DAILY 11/20/20 [History] Atorvastatin [Lipitor] 80 mg PO DAILY #30 tab 11/24/20 [Rx] Famotidine [Pepcid] 20 mg PO DAILY #30 tab 11/24/20 [Rx] INSULIN ASPART (NovoLOG) [NovoLOG (formulary)] 12 unit SQ AC-TID #1 vial 11/24/20 [Rx] Insulin Detemir (Levemir) [Levemir] 35 unit SQ DAILY #0 11/24/20 [Rx] Losartan [Cozaar] 100 mg PO DAILY #30 tab 11/24/20 [Rx] Nitroglycerin Sl Tabs [Nitrostat] 0.4 mg SUBLINGUAL Q5M PRN #25 tab 11/24/20 [Rx] Ticagrelor [Brilinta] 90 mg PO BID #60 tab 11/24/20 [Rx] metFORMIN HCL [Glucophage] 1,000 mg PO BID #0 11/24/20 [Rx] glipiZIDE [Glucotrol] 10 mg PO DAILY 02/15/21 [History] hydrALAZINE HCL [Apresoline] 50 mg PO BID 02/15/21 [History] Carvedilol [Coreg] 25 mg PO BID #60 tablet 02/16/21 [Rx] Spironolactone [Aldactone] 50 mg PO DAILY 03/03/21 [History] Furosemide [Lasix] 40 mg PO DAILY #60 tab 03/05/21 [Rx] Follow up Appointment(s)/Referral(s): Eriberto Anne MD [Primary Care Provider] - 1 Week (office closed at this time - please call to arrange appointment) [facility], [NON-STAFF] - ([facility] will call you to set up a visit to begin your outpatient IV antibiotic teaching. Your first visit will be on: 03/09/21. ) [facility] [REFERRING] - ([facility] will deliver supplies tonight or tomorrow morning. They will call prior to delivery. ) [facility] [NON-STAFF] - 1 Week (Please call Wound Center on Monday after 0800hrs to arrange next wound care appointment) Jermaine Louis MD [STAFF PHYSICIAN] - 03/15/21 2:45 pm Ambulatory/Diagnostic Orders: C Reactive Protein [LAB.AMB] Location: None Selected Complete Blood Count w/diff [LAB.AMB] Location: None Selected Comprehensive Metabolic Panel [LAB.AMB] Location: None Selected Erythrocyte Sedimentation Rate [LAB.AMB] Location: None Selected Patient Instructions/Handouts: Cellulitis (DC), Osteomyelitis (DC) Discharge Disposition: HOME WITH HOME HEALTH SERVICES
[2021-03-08 11:15] LABS: Glucose,Whole Blood 135 mg/dL (75-99)
--- NOTE | 2021-03-08 13:13 | PN ---
PROGRESS NOTE DATE OF SERVICE: 03/08/2021 REASON FOR FOLLOWUP: Left big toe osteomyelitis. INTERVAL HISTORY: The patient is afebrile. The patient is currently breathing comfortably. No chest pain, shortness of breath, abdominal pain, or any worsening pain to the left big toe. PHYSICAL EXAMINATION: Blood pressure 142/89, pulse 83, temperature 98. He is 97% on room air. General description is a middle-aged male lying in bed in no distress. Respiratory system: Unlabored breathing, clear to auscultation anteriorly. Heart S1, S2. Regular rate and rhythm. Abdomen soft, no tenderness. Left big toe was currently dressed. No obvious drainage on the dressing. LABS: No new labs have been obtained today. DIAGNOSTIC IMPRESSION AND PLAN: Patient with left big toe osteomyelitis. Culture positive for ESBL Staph. Plan is for Invanz 1 g daily for a total of 6 weeks. Local wound care with Aquacel dressing and close outpatient followup. MMODL / IJN: [id number] /
[2021-03-08 14:13] VITALS: BP 113/71; RESP 16; TEMP 97.8
[2021-03-08] MEDS: ERTAPENEM 1 GM in SODIUM CHLORIDE 0.9% 50 ML IVPB SCH (15:27)
--- NOTE | 2021-03-10 12:14 | P.ARTDOP ---
Arterial Doppler LOWER EXTREMITY ARTERIAL DOPPLER: DATE OF SERVICE: 03/03/2021 Reason for study: Left great toe infection. Doppler waveforms: Multiphasic bilaterally throughout. Pulse volume recording: []. Pressure gradients: None. Ankle-brachial indices: Greater than 1 bilaterally. Toe brachial indices: [] on the right, [] on the left Impression: Normal study.
== END 2021-03-08 16:32 | disposition home health service (06) | DRG 623 ==
LOC: EC 04:18 → 6NMEDSUR 06:29 → OBSVTOIN 11:07 → 5NMEDONC 14:38 → 4SSUR 14:44
PROVIDERS: ADMIT Internal Medicine; ATTEND Internal Medicine
PROC: 0JBR0ZZ Excision of Left Foot Subcutaneous Tissue and Fascia, Open Approach (ICD-10-PCS; principal; 2021-03-03)
PROC: 02HV33Z Insertion of Infusion Device into Superior Vena Cava, Percutaneous Approach (ICD-10-PCS; 2021-03-05)
DX: E11.69 Type 2 diabetes mellitus with other specified complication (principal); M86.172 Other acute osteomyelitis, left ankle and foot; I50.22 Chronic systolic (congestive) heart failure; Z16.12 Extended spectrum beta lactamase (ESBL) resistance; E11.40 Type 2 diabetes mellitus with diabetic neuropathy, unspecified; E11.621 Type 2 diabetes mellitus with foot ulcer; L03.032 Cellulitis of left toe; L97.522 Non-pressure chronic ulcer of other part of left foot with fat layer exposed; B96.20 Unspecified Escherichia coli [E. coli] as the cause of diseases classified elsewhere; B95.1 Streptococcus, group B, as the cause of diseases classified elsewhere; E11.628 Type 2 diabetes mellitus with other skin complications; E11.51 Type 2 diabetes mellitus with diabetic peripheral angiopathy without gangrene; I11.0 Hypertensive heart disease with heart failure; E11.65 Type 2 diabetes mellitus with hyperglycemia; Z79.4 Long term (current) use of insulin; L84 Corns and callosities; I25.5 Ischemic cardiomyopathy; I25.10 Atherosclerotic heart disease of native coronary artery without angina pectoris; I25.2 Old myocardial infarction; E78.5 Hyperlipidemia, unspecified; F32.9 Major depressive disorder, single episode, unspecified; F41.1 Generalized anxiety disorder; K21.9 Gastro-esophageal reflux disease without esophagitis; E66.9 Obesity, unspecified; Z68.31 Body mass index [BMI] 31.0-31.9, adult; Z79.82 Long term (current) use of aspirin; Z79.02 Long term (current) use of antithrombotics/antiplatelets; Z79.899 Other long term (current) drug therapy; Z95.5 Presence of coronary angioplasty implant and graft; Z87.19 Personal history of other diseases of the digestive system; Z87.39 Personal history of other diseases of the musculoskeletal system and connective tissue; Z98.890 Other specified postprocedural states; Z83.3 Family history of diabetes mellitus; Z82.49 Family history of ischemic heart disease and other diseases of the circulatory system
CPT/HCPCS: 36415; 36573; 80053; 80202; 81003; 82565; 83605; 83735; 84100; 84484; 85025; 85610; 85652; 85730; 86140; 87070; 87077; 87186; 87205; 93922; 96365; 96375; 99284

== ENCOUNTER 2021-07-03 15:53 | Inpatient (IN) | payer OTHER ==
[2021-07-03] MEDS ORDERED: ACETAMINOPHEN TAB 500 MG TAB PO STA (16:58)
[2021-07-03 17:31] LABS: Potassium 4.2 mmol/L (3.5-5.1)
[2021-07-03 17:32] LABS: ALT 13 U/L (4-49); AST 19 U/L (17-59); African American GFR (CKD) >90 (>60 ml/min/1.73 sqM); Albumin 4.1 g/dL (3.5-5.0); Alkaline Phosphatase 103 U/L (38-126); Anion Gap 14 mmol/L; Blood Urea Nitrogen 12 mg/dL (9-20); Calcium 9.4 mg/dL (8.4-10.2); Carbon Dioxide 22 mmol/L (22-30); Chloride 94 mmol/L (98-107); Glucose 352 mg/dL (74-99); Non-African American GFR(CKD) >90 (>60 ml/min/1.73 sqM); Sodium 130 mmol/L (137-145); Total Bilirubin 1.3 mg/dL (0.2-1.3); Total Protein 6.9 g/dL (6.3-8.2)
[2021-07-03 17:34] LABS: Partial Thromboplastin Time 25.7 sec (22.0-30.0); Prothrombin Time 11.1 sec (9.0-12.0)
[2021-07-03 17:37] LABS: Basophils % (A) 0 %; Eosinophils # (A) 0.1 k/uL (0-0.7); Eosinophils % (A) 0 %; HCT 43.9 % (39.0-53.0); HGB 15.3 gm/dL (13.0-17.5); Hyperchromasia Slight; Lymphocytes # (A) 0.6 k/uL (1.0-4.8); Lymphocytes % (A) 5 %; MCH 29.8 pg (25.0-35.0); MCHC 34.7 g/dL (31.0-37.0); MCV 85.8 fL (80.0-100.0); Mean Platelet Volume 8.1; Monocytes # (A) 0.6 k/uL (0-1.0); Monocytes % (A) 5 %; Neutrophils % (A) 89 %; Platelet Count 279 k/uL (150-450); RBC 5.12 m/uL (4.30-5.90); RDW 14.5 % (11.5-15.5); WBC 11.3 k/uL (3.8-10.6)
[2021-07-03] MEDS ORDERED: ERTAPENEM 1 GM in SODIUM CHLORIDE 0.9% 50 ML IVPB STA (18:25)
[2021-07-03] MEDS ORDERED: PANTOPRAZOLE 40 MG/10 ML VIAL IVP STA (18:26)
--- NOTE | 2021-07-03 18:27 | ED ---
Extremity Problem HPI - General Chief complaint: Extremity Problem,Nontraumatic Stated complaint: lt toe infection,lt leg pain,nausea Source: patient Mode of arrival: wheelchair Limitations: no limitations - History of Present Illness Initial comments: 40-year-old male presents with history of diabetes, hypertension, coronary disease presents emergency room with reported fever, left great toe pain and chest pain. He has a history of a nonhealing wound on his left great toe for which she sees Dr. Humphreys. He had a PICC line with antibiotics several months ago. He has not been on any recent antibiotics. States that he went back to work and was wearing a shoe and sock that kept his foot moist. His foot is now swollen and red to the touch. Patient was found to have a fever. Patient has also had some chest pain. States that it comes in waves. Describes it as a pressure sensation without radiation. Pain has been present for at the day today. He has some associated palpitations and reflux sensation. No nausea or vomiting. He sees Dr. Abad in the outpatient setting. Reports that he has had some intermittent chest pain since his heart cath in October. He has seen Dr. Abad and was supposed to have Holter monitoring. States the chest pain is not active at this time. Patient admits to the pharmacy technician assistant that he has not been taking his medications to include this Brillinta for the past one week. Denies any calf pain or swelling. No other alleviating, precipitating factors - Related Data Home Medications Medication Instructions Recorded Confirmed Albuterol Sulfate [Proair Hfa] 2 puff INHALATION RT-Q4H PRN 11/20/20 07/03/21 Aspirin EC [Ecotrin Low Dose] 81 mg PO DAILY 11/20/20 07/03/21 DULoxetine HCL [Cymbalta] 60 mg PO DAILY 11/20/20 07/03/21 glipiZIDE [Glucotrol] 10 mg PO DAILY 02/15/21 07/03/21 hydrALAZINE HCL [Apresoline] 50 mg PO BID 02/15/21 07/03/21 Spironolactone [Aldactone] 50 mg PO DAILY 03/03/21 07/03/21 Previous Rx's Medication Instructions Recorded Atorvastatin [Lipitor] 80 mg PO DAILY #30 tab 11/24/20 Famotidine [Pepcid] 20 mg PO DAILY #30 tab 11/24/20 INSULIN ASPART (NovoLOG) [NovoLOG 12 unit SQ AC-TID #1 vial 11/24/20 (formulary)] Insulin Detemir (Levemir) [Levemir] 35 unit SQ DAILY #0 11/24/20 Losartan [Cozaar] 100 mg PO DAILY #30 tab 11/24/20 Nitroglycerin Sl Tabs [Nitrostat] 0.4 mg SUBLINGUAL Q5M PRN #25 tab 11/24/20 Ticagrelor [Brilinta] 90 mg PO BID #60 tab 11/24/20 metFORMIN HCL [Glucophage] 1,000 mg PO BID #0 11/24/20 Carvedilol [Coreg] 25 mg PO BID #60 tablet 02/16/21 Furosemide [Lasix] 40 mg PO DAILY #60 tab 03/05/21 Allergies Allergy/AdvReac Type Severity Reaction Status Date / Time No Known Allergies Allergy Verified 07/03/21 18:56 Review of Systems ROS Statement: Those systems with pertinent positive or pertinent negative responses have been documented in the HPI. ROS Other: All systems not noted in ROS Statement are negative. Past Medical History Past Medical History: Diabetes Mellitus, Hyperlipidemia, Hypertension Additional Past Medical History / Comment(s): neuropathy Last Myocardial Infarction Date:: 11/20/2020 History of Any Multi-Drug Resistant Organisms: ESBL Date of last positivie culture/infection: 03/03/21 E. coli ESBL MDRO Source:: Left Foot Past Surgical History: Back Surgery, Hernia Repair Additional Past Surgical History / Comment(s): 4 cardiac stents 11/20/2020, 1 cardiac stent 11/23/2020 Past Anesthesia/Blood Transfusion Reactions: No Reported Reaction Past Psychological History: Depression Smoking Status: Never smoker Past Alcohol Use History: None Reported Past Drug Use History: None Reported - Past Family History Mother Family Medical History: Diabetes Mellitus Father Family Medical History: Congestive Heart Failure (CHF), Coronary Artery Disease (CAD), Diabetes Mellitus, Hypertension, Myocardial Infarction ([place]) Additional Family Medical History / Comment(s): father 2019 from [place] General Exam Limitations: no limitations Course Vital Signs 07/03/21 16:34 Temperature 102.9 F H Pulse Rate 109 H Respiratory 20 Rate Blood Pressure 101/71 O2 Sat by Pulse 97 Oximetry Medical Decision Making - Medical Decision Making Upon arrival patient is placed in room 1. A thorough history and physical exam was performed. Patient does have a temp of 102.9. Because of this he was given 1 g of Tylenol. Laboratory studies were obtained. Initial EKG does not demonstrate any signs of ST segment elevation. He is brought back to room and placed on continuous pulse ox and cardiac monitoring. Laboratory studies are conducted. White count 11.3. Sodium 1:30. Glucose is 352. Troponin is elevated 0.069. I did speak with Dr. Garner in regards to the patient's care. Recommend that I re-start Brilinta, aspirin and start the patient on a heparin drip. Chest x-ray demonstrates no acute process. Foot x-ray demonstrates no convincing evidence for osteomyelitis. Skin defect involving the medial aspect of the first digit. Patient had been previously cultured and it demonstrated E. coli and group B strep. Specimen was sensitive to Invanz and therefore the patient is initiated on this antibiotic at this time. Spoke with Dr. He who agreed to admit the patient. We'll consult cardiology and infectious disease. Patient remained in stable condition awaiting a bed on the floor - Lab Data Result diagrams: 07/03/21 16:57 07/03/21 16:57 Lab Results 07/03/21 07/03/21 07/03/21 Range/Units 16:57 16:57 16:57 WBC 11.3 H (3.8-10.6) k/uL RBC 5.12 (4.30-5.90) m/uL Hgb 15.3 (13.0-17.5) gm/dL Hct 43.9 (39.0-53.0) % MCV 85.8 (80.0-100.0) fL MCH 29.8 (25.0-35.0) pg MCHC 34.7 (31.0-37.0) g/dL RDW 14.5 (11.5-15.5) % Plt Count 279 (150-450) k/uL MPV 8.1 Neutrophils % 89 % Lymphocytes % 5 % Monocytes % 5 % Eosinophils % 0 % Basophils % 0 % Neutrophils # 10.0 H (1.3-7.7) k/uL Lymphocytes # 0.6 L (1.0-4.8) k/uL Monocytes # 0.6 (0-1.0) k/uL Eosinophils # 0.1 (0-0.7) k/uL Basophils # 0.0 (0-0.2) k/uL Hyperchromasia Slight PT 11.1 (9.0-12.0) sec INR 1.0 (<1.2) APTT 25.7 (22.0-30.0) sec Sodium 130 L (137-145) mmol/L Potassium 4.2 (3.5-5.1) mmol/L Chloride 94 L (98-107) mmol/L Carbon Dioxide 22 (22-30) mmol/L Anion Gap 14 mmol/L BUN 12 (9-20) mg/dL Creatinine 0.63 L (0.66-1.25) mg/dL Est GFR (CKD-EPI)AfAm >90 (>60 ml/min/1.73 sqM) Est GFR (CKD-EPI)NonAf >90 (>60 ml/min/1.73 sqM) Glucose 352 H (74-99) mg/dL Plasma Lactic Acid Mahad (0.7-2.0) mmol/L Calcium 9.4 (8.4-10.2) mg/dL Total Bilirubin 1.3 (0.2-1.3) mg/dL AST 19 (17-59) U/L ALT 13 (4-49) U/L Alkaline Phosphatase 103 (38-126) U/L Troponin I (0.000-0.034) ng/mL Total Protein 6.9 (6.3-8.2) g/dL Albumin 4.1 (3.5-5.0) g/dL 07/03/21 07/03/21 Range/Units 16:57 18:31 WBC (3.8-10.6) k/uL RBC (4.30-5.90) m/uL Hgb (13.0-17.5) gm/dL Hct (39.0-53.0) % MCV (80.0-100.0) fL MCH (25.0-35.0) pg MCHC (31.0-37.0) g/dL RDW (11.5-15.5) % Plt Count (150-450) k/uL MPV Neutrophils % % Lymphocytes % % Monocytes % % Eosinophils % % Basophils % % Neutrophils # (1.3-7.7) k/uL Lymphocytes # (1.0-4.8) k/uL Monocytes # (0-1.0) k/uL Eosinophils # (0-0.7) k/uL Basophils # (0-0.2) k/uL Hyperchromasia PT (9.0-12.0) sec INR (<1.2) APTT (22.0-30.0) sec Sodium (137-145) mmol/L Potassium (3.5-5.1) mmol/L Chloride (98-107) mmol/L Carbon Dioxide (22-30) mmol/L Anion Gap mmol/L BUN (9-20) mg/dL Creatinine (0.66-1.25) mg/dL Est GFR (CKD-EPI)AfAm (>60 ml/min/1.73 sqM) Est GFR (CKD-EPI)NonAf (>60 ml/min/1.73 sqM) Glucose (74-99) mg/dL Plasma Lactic Acid Mahad 1.2 (0.7-2.0) mmol/L Calcium (8.4-10.2) mg/dL Total Bilirubin (0.2-1.3) mg/dL AST (17-59) U/L ALT (4-49) U/L Alkaline Phosphatase (38-126) U/L Troponin I 0.069 H* (0.000-0.034) ng/mL Total Protein (6.3-8.2) g/dL Albumin (3.5-5.0) g/dL - EKG Data EKG Comments: EKG performed at 1640 demonstrates a sinus tachycardia with a ventricular rate of 112. NH interval 150. QRS 78. QTC of 434. Inverted T-wave in 2, [address] No acute ST segment elevations Disposition Clinical Impression: Chest pain, NSTEMI (non-ST elevated myocardial infarction), Open wound of great toe, Sepsis, Diabetic foot ulcer Disposition: ADMITTED IP TO THIS [facility] Condition: Serious Is patient prescribed a controlled substance at d/c from ED?: No Referrals: Eriberto Anne MD [Primary Care Provider] - 1-2 days Decision to Admit Reason: Admit from EC Decision Date: 07/03/21 Decision Time: 19:18
--- NOTE | 2021-07-03 18:59 | XR ---
INDICATION: Patient age:Male; 40 years old; Reason for study: Cough/pain; PHH. COMPARISON: None. TECHNIQUE: Frontal and lateral views of the chest. FINDINGS: Lungs/Pleura: There is no evidence of pleural effusion, focal consolidation, or pneumothorax. Pulmonary vascularity: Unremarkable. Heart/mediastinum: Cardiomediastinal silhouette is unremarkable. Musculoskeletal: No acute osseous pathology. IMPRESSION: No acute cardiopulmonary disease/process.
--- NOTE | 2021-07-03 19:04 | XR ---
INDICATION: Patient age:Male; 40 years old; Reason for study: osteo; PHH. COMPARISON: None TECHNIQUE: The left foot was examined in the AP, oblique, and lateral projections. FINDINGS: No evidence for erosion of the osseous structures. Increased density involving the first di git medial aspect seen on single view and may be secondary to summation of overlying objects. Skin de fect is noted along the first digit.No evidence of any acute osseous pathology. No evidence of soft tissue swelling. Joints are preserved. Incidental note is made of symphalangism of the fifth distal i nterphalangeal joint. Arteriovascular calcifications seen throughout the foot. Mild degenerative aguirre ges are seen involving the interphalangeal and metatarsophalangeal joints. IMPRESSION: 1. No convincing evidence for osteomyelitis. 2. No evidence of acute fracture. 3. Skin defect involving the medial aspect of the first digit.
[2021-07-03] MEDS ORDERED: HEPARIN SODIUM 1,000 UN/ML (10ML VL) IV ONE (19:12)
[2021-07-03] MEDS ORDERED: HEPARIN SODIUM 1,000 UN/ML (10ML VL) IV PRN (19:12)
[2021-07-03] MEDS: SODIUM CHLORIDE 0.9% 1,000 ML IV SCH (19:16)
[2021-07-03] MEDS ORDERED: ASPIRIN 81 MG PO STA (19:19)
[2021-07-03] MEDS ORDERED: ALBUTEROL NEBULIZED 2.5 MG/3 ML INHALATION PRN (19:19)
[2021-07-03] MEDS: HEPARIN SOD,PORK IN 0.45% NACL 25,000 UNIT in 0.45% NACL 1 250ML.BAG IV SCH (19:21)
[2021-07-03] MEDS ORDERED: NALOXONE 0.4 MG/ML 1 ML VIAL IV PRN (19:59)
[2021-07-03] MEDS ORDERED: IBUPROFEN 400 MG TAB PO PRN (19:59)
[2021-07-03] MEDS ORDERED: ACETAMINOPHEN TAB 325 MG TAB PO PRN (19:59)
[2021-07-03 21:00] LABS: Glucose,Whole Blood 312 mg/dL (75-99)
[2021-07-03] MEDS ORDERED: INSULIN DETEMIR (LEVEMIR) 100 UNIT/ML SYR SQ SCH (21:00)
[2021-07-03] MEDS: ATORVASTATIN 80 MG TAB PO SCH (21:58)
[2021-07-03] MEDS: carvediloL 12.5 MG TAB PO SCH (21:58)
[2021-07-03] MEDS ORDERED: MAG HYDROX/AL HYDROX/SIMETH 30 ML, HYOSCYAMINE ELIXIR 10 ML, CIMETIDINE HCL 300 MG, LID... PO PRN ×4 (22:24)
[2021-07-04 00:20] LABS: Glucose,Whole Blood 278 mg/dL (75-99)
[2021-07-04] MEDS: TICAGRELOR 90 MG TAB PO SCH ×3 (01:51→20:54)
[2021-07-04] MEDS: INSULIN ASPART (NovoLOG) 100 UNIT/ML VIAL SQ SCH ×4 (01:51→15:18)
[2021-07-04] MEDS: hydrALAZINE HCL 50 MG TAB PO SCH ×2 (01:51→12:10)
[2021-07-04] MEDS: SODIUM CHLORIDE 0.9% 1,000 ML IV SCH ×3 (06:20→15:18)
[2021-07-04 06:33] LABS: Glucose,Whole Blood 249 mg/dL (75-99)
[2021-07-04] MEDS: ATORVASTATIN 80 MG TAB PO SCH (08:26)
[2021-07-04] MEDS: carvediloL 12.5 MG TAB PO SCH ×2 (08:26→20:54)
[2021-07-04] MEDS: ASPIRIN 81 MG PO SCH (08:26)
[2021-07-04] MEDS: DULoxetine HCL 60 MG CAPSULE.DR PO SCH (08:27)
[2021-07-04] MEDS: FAMOTIDINE 20 MG TAB PO SCH (08:27)
[2021-07-04] MEDS ORDERED: VANCOMYCIN IV PER PHARMACY 1 EACH MISC MISCELLANE PRN (08:34)
[2021-07-04] MEDS ORDERED: LOSARTAN 50 MG TAB PO SCH (09:00)
[2021-07-04] MEDS ORDERED: SPIRONOLACTONE 25 MG TAB PO SCH (09:00)
[2021-07-04 09:06] LABS: Basophils # (A) 0.1 k/uL (0-0.2); Basophils % (A) 1 %; Eosinophils % (A) 0 %; HCT 37.4 % (39.0-53.0); HGB 12.8 gm/dL (13.0-17.5); Lymphocytes # (A) 1.1 k/uL (1.0-4.8); Lymphocytes % (A) 12 %; MCHC 34.2 g/dL (31.0-37.0); MCV 87.8 fL (80.0-100.0); Monocytes # (A) 0.5 k/uL (0-1.0); Monocytes % (A) 5 %; Neutrophils # (A) 7.6 k/uL (1.3-7.7); Neutrophils % (A) 80 %; Platelet Count 316 k/uL (150-450); RBC 4.26 m/uL (4.30-5.90); RDW 14.5 % (11.5-15.5); WBC 9.4 k/uL (3.8-10.6)
[2021-07-04 09:17] LABS: INR 1.2 (<1.2); Partial Thromboplastin Time 56.1 sec (22.0-30.0)
[2021-07-04] MEDS ORDERED: VANCOMYCIN 2,000 MG in SODIUM CHLORIDE 0.9% 500 ML 500 ML IVPB ONE (09:30)
[2021-07-04 09:40] LABS: African American GFR (CKD) >90 (>60 ml/min/1.73 sqM); Anion Gap 12 mmol/L; Blood Urea Nitrogen 15 mg/dL (9-20); Carbon Dioxide 21 mmol/L (22-30); Chloride 101 mmol/L (98-107); Glucose 214 mg/dL (74-99); Non-African American GFR(CKD) >90 (>60 ml/min/1.73 sqM); Potassium 3.8 mmol/L (3.5-5.1); Sodium 134 mmol/L (137-145)
[2021-07-04] MEDS ORDERED: ONDANSETRON 4 MG/2 ML VIAL IVP PRN (09:56)
[2021-07-04] MEDS ORDERED: INSULIN REGULAR 100 UNIT in SODIUM CHLORIDE 0.9% 100 ML IV SCH (10:30)
[2021-07-04] MEDS ORDERED: ERTAPENEM 1 GM in SODIUM CHLORIDE 0.9% 50 ML IVPB SCH (10:30)
[2021-07-04 11:39] LABS: Glucose,Whole Blood 210 mg/dL (75-99)
--- NOTE | 2021-07-04 12:00 | ECHOF ---
Referral Reason:postive trops, Hx cad MEASUREMENTS -------- HEIGHT: 190.5 cm WEIGHT: 113.4 kg BP: RVIDd: 3.8 cm (< 3.3) IVSd: 1.2 cm (0.6 - 1.1) LVIDd: 5.2 cm (3.9 - 5.3) LVPWd: 1.1 cm (0.6 - 1.1) IVSs: 1.4 cm LVIDs: 3.9 cm LVPWs: 1.3 cm LAESV Index (A-L): 35.21 ml/m Ao Diam: 3.5 cm (2.0 - 3.7) AV Cusp: 2.3 cm (1.5 - 2.6) MV EXCURSION: 26.234 mm (> 18.000) MV EF SLOPE: 137 mm/s (70 - 150) EPSS: 0.5 cm MV E Uri: 0.85 m/s MV DecT: 202 ms MV A Uri: 0.45 m/s MV E/A Ratio: 1.90 FINDINGS -------- Sinus rhythm. This was a technically adequate study. The left ventricular size is normal. There is mild concentric left ventricular hypertrophy. Overa ll left ventricular systolic function is mildly impaired with, an EF between 45 - 50 %. Septal hypo kinesis The right ventricle is mild to moderately enlarged. LA is moderately dilated 34-39 ml/m2 The right atrial size is normal. Interatrial and interventricular septum intact. There is no evidence of aortic regurgitation. There is no evidence of aortic stenosis. Mild mitral regurgitation is present. Mild tricuspid regurgitation present. There is no evidence of pulmonary hypertension. The right v entricular systolic pressure, as measured by Doppler, is {RVSP}. There is no pulmonic regurgitation present. The aortic root size is normal. The inferior vena cava is mildly dilated. Echo free space represents a pericardial fat pad. There is no pericardial effusion. CONCLUSIONS -------- 1. The left ventricular size is normal. 2. There is mild concentric left ventricular hypertrophy. 3. Overall left ventricular systolic function is mildly impaired with, an EF between 45 - 50 %. 4. Septal hypokinesis 5. The right ventricle is mild to moderately enlarged. 6. LA is moderately dilated 34-39 ml/m2 7. Mild mitral regurgitation is present. 8. Mild tricuspid regurgitation present. [employer] ENGINEER: Chelly Spaulding RDCS
--- NOTE | 2021-07-04 13:09 | P.HPIM ---
History of Present Illness H&P Date: 07/04/21 HISTORY OF PRESENT ILLNESS This is a 40-year-old male patient of Dr. Anne and Dr. Abad with past medical history of anterior ST elevated myocardial infarction status post PCI of the proximal to mid LAD on 11/20/2020 and PCI to the mid RCA on 11/1701/17/2021, ischemic cardiomyopathy with ejection fraction of 3540 percent, chronic systolic heart failure, hypertension, diabetes mellitus type 2, obesity great toe ulcer. Patient's last hospitalization was in February 2021 at which time he was treated for left great toe cellulitis with osteomyelitis. Patient was seen by Dr. Louis patient was discharged on Invanz 1 g daily for 6 weeks. Patient stopped taking his medication and when asked, patient states he just forgot to take it for a week. He also states that he change the type of dressing that he uses on his toe and now toe is swollen red with drainage. His blood sugars at home were apparently in the 300s. He states he has been off work for the past 3 days. He denies any shortness of breath. He complains of nausea and fever and feeling "super sick." Patient also complains of chest pain, pressure type. Patient came into [facility] emergency center for evaluation. Temperature was 102.9, heart rate 109, blood pressure 101/71 and pulse ox 97% on room air. EKG was sinus tachycardia inverted T-wave in leads 2, 3, aVF. WBC 11.3, lymphocytes 0.6. Sodium 130, potassium 4.2, creatinine 0.63, blood sugar 352. Lactic acid 1.2. Liver function tests normal. Troponin 0.069, 0.045, 0.056. COVID-19 detected. Blood culture is showing strep galactorrhea group B. Left foot x-ray revealed no convincing evidence of osteomyelitis. No evidence of acute fracture. Skin defect of the medial aspect of the first digit. Chest x-ray reveals no acute cardiopulmonary disease. Echocardiogram reveals EF of 45-50% with mild concentric left ventricular hypertrophy, mild mitral regurgitation, mild tricuspid regurgitation. Patient has been admitted to the cardiac stepdown unit, consult in place with cardiology and infectious disease. REVIEW OF SYSTEMS Constitutional: Reports fever, Reports chills, no night sweats. No weight change. No weakness, Reports fatigue Reports lethargy. No daytime sleepiness. EENT: No headache. No blurred vision or double vision, no loss of vision. No loss of Hearing, no ringing in the ears, no dizziness. No nasal drainage or congestion. No epistaxis. No sore throat. Lungs: No shortness of breath, cough, no sputum production. No wheezing. Cardiovascular: Reports chest pain, no lower extremity edema. No palpitations. No paroxysmal nocturnal dyspnea. No orthopnea. No lightheadedness or dizziness. No syncopal episodes. Abdominal: No abdominal pain. No nausea, vomiting. No diarrhea. No constipation. No bloody or tarry stools.. No loss of appetite. Genitourinary: No dysuria, increased frequency, urgency. No urinary retention. Musculoskeletal: No myalgias. No muscle weakness, no gait dysfunction, no frequent falls. No back pain. No neck pain. Integumentary: Left great toe wounds, no lesions. No rash or pruritus. No unusual bruising. No change in hair or nails. Neurologic: No aphasia. No facial droop. No change in mentation. No head injury. No headache. No paralysis. No paresthesia. Psychiatric: No depression. No anxiety. No mood swings. Endocrine: Reports abnormal blood sugars. No weight change. No excessive sweating or thirst. No cold intolerance. SOCIAL HISTORY Patient works at [employer]. He is a lifelong nonsmoker, denies EtOH, illicit drug use. FAMILY HISTORY Patient is with 5 daughters who are healthy, he has one brother who is healthy, his dad in his 40s from coronary artery disease, mom is still alive with diabetes and coronary artery disease. PHYSICAL EXAMINATION Gen: This is a 40-year-old male. He is resting in bed and appears to be anxious. HEENT: Head is atraumatic, normocephalic. Pupils equal, round. Sclerae is anicteric. NECK: Supple. No JVD. No lymphadenopathy. No thyromegaly. LUNGS: Clear to auscultation. No wheezes or rhonchi. No intercostal retractions. HEART: Regular rate and rhythm. No murmur. ABDOMEN: Soft. Bowel sounds are present. No masses. No tenderness. EXTREMITIES: Left foot has wound to the plantar surface of the great toe and wound between the first and second toes, serous drainage. Unable to palpate dorsalis pedis on the left foot. 1+ dorsalis pedis on the right foot. NEUROLOGICAL: Patient is awake, alert and oriented x3. Cranial nerves 2 through 12 are grossly intact. ASSESSMENT AND PLAN 1. Sepsis secondary to Left great toe ulcer, rule out osteomyelitis. Patient started on Invanz and vancomycin, consult with infectious disease, consult with vascular surgery for debridement. C-reactive protein and sed rate ordered. 2. COVID-19 infection without pneumonia. Patient started on dexamethasone 6 mg daily, vitamin supplements, anticoagulation with heparin drip. 3. Non-ST elevated myocardial infarction. Echocardiogram as above, cardiology consult, patient is on heparin drip, continue aspirin 81 mg daily, Lipitor 80 mg daily, Coreg 25 mg twice daily, Brilinta 90 mg twice daily. 4. Diabetes mellitus type 2 uncontrolled with hyperglycemia secondary to noncompliance. Patient started on insulin drip, obtained A1c. 5. Hypertension. Her pressure this morning is soft. We will change losartan to 50 mg daily and hold hydralazine and Aldactone until blood pressure recovers from sepsis. Cardiology is following. 6. Ischemic cardiomyopathy with chronic systolic heart failure. Continue Coreg 25 mg twice daily, Lasix and Aldactone on hold. 7. Coronary artery disease with previous anterior ST elevated myocardial infar ction status post PCI of the proximal to mid LAD on 11/20/2020 and PCI to the mid RCA on 11/1701/17/2021. Continue Brilinta 90 mg twice daily, Coreg, Lipitor 80 mg daily, aspirin 81 mg daily. 8. Hyperlipidemia. Continue atorvastatin 80 mg daily. 9. Generalized anxiety disorder. Continue Cymbalta 60 mg daily. 10. Gastroesophageal reflux disease and GI prophylaxis. Pepcid daily. 11. DVT prophylaxis. heparin drip. Patient admitted to the hospital for a minimum of 2 night stay. DISCHARGE PLAN Home. Patient most likely will require IV antibiotics at discharge. Impression and plan of care have been directed as dictated by the signing physician. Kaye Bach nurse practitioner acting as scribe for signing physician. Past Medical History Past Medical History: Diabetes Mellitus, Hyperlipidemia, Hypertension Additional Past Medical History / Comment(s): neuropathy Last Myocardial Infarction Date:: 11/20/2020 History of Any Multi-Drug Resistant Organisms: ESBL Date of last positivie culture/infection: 03/03/21 E. coli ESBL MDRO Source:: Left Foot Past Surgical History: Back Surgery, Hernia Repair Additional Past Surgical History / Comment(s): 4 cardiac stents 11/20/2020, 1 cardiac stent 11/23/2020 Past Anesthesia/Blood Transfusion Reactions: No Reported Reaction Past Psychological History: No Psychological Hx Reported, Depression Smoking Status: Never smoker Past Alcohol Use History: None Reported Past Drug Use History: None Reported - Past Family History Mother Family Medical History: Diabetes Mellitus Father Family Medical History: Congestive Heart Failure (CHF), Coronary Artery Disease (CAD), Diabetes Mellitus, Hypertension, Myocardial Infarction ([place]) Additional Family Medical History / Comment(s): father 2018 from [place] Medications and Allergies Home Medications Medication Instructions Recorded Confirmed Type Albuterol Sulfate [Proair Hfa] 2 puff INHALATION RT-Q4H PRN 11/20/20 07/03/21 History Aspirin EC [Ecotrin Low Dose] 81 mg PO DAILY 11/20/20 07/03/21 History DULoxetine HCL [Cymbalta] 60 mg PO DAILY 11/20/20 07/03/21 History Atorvastatin [Lipitor] 80 mg PO DAILY #30 tab 11/24/20 07/03/21 Rx Famotidine [Pepcid] 20 mg PO DAILY #30 tab 11/24/20 07/03/21 Rx INSULIN ASPART (NovoLOG) [NovoLOG 12 unit SQ AC-TID #1 vial 11/24/20 07/03/21 Rx (formulary)] Insulin Detemir (Levemir) [Levemir] 35 unit SQ DAILY #0 11/24/20 07/03/21 Rx Losartan [Cozaar] 100 mg PO DAILY #30 tab 11/24/20 07/03/21 Rx Nitroglycerin Sl Tabs [Nitrostat] 0.4 mg SUBLINGUAL Q5M PRN #25 tab 11/24/20 07/03/21 Rx Ticagrelor [Brilinta] 90 mg PO BID #60 tab 11/24/20 07/03/21 Rx metFORMIN HCL [Glucophage] 1,000 mg PO BID #0 11/24/20 07/03/21 Rx glipiZIDE [Glucotrol] 10 mg PO DAILY 02/15/21 07/03/21 History hydrALAZINE HCL [Apresoline] 50 mg PO BID 02/15/21 07/03/21 History Carvedilol [Coreg] 25 mg PO BID #60 tablet 02/16/21 07/03/21 Rx Spironolactone [Aldactone] 50 mg PO DAILY 03/03/21 07/03/21 History Furosemide [Lasix] 40 mg PO DAILY #60 tab 03/05/21 07/03/21 Rx Allergies Allergy/AdvReac Type Severity Reaction Status Date / Time No Known Allergies Allergy Verified 07/03/21 18:56 Physical Exam Vitals: Vital Signs Temp Pulse Pulse Resp BP BP Pulse Ox 07/04/21 05:34 99.6 F 78 18 93/59 97 07/04/21 04:00 99.2 F 85 18 101/60 95 07/04/21 00:00 99.2 F 101 H 18 138/88 95 07/03/21 20:59 97.4 F L 07/03/21 19:35 98.6 F 103 H 20 142/91 97 07/03/21 16:34 102.9 F H 109 H 20 101/71 97 Intake and Output 07/03/21 07/04/21 07/04/21 22:59 06:59 14:59 Intake Total 82.847 Balance 82.847 Intake: IV 10 Invasive Line 1 10 Intake, IV Titration 72.847 Amount Heparin Sod,Pork in 0.45% 72.847 NaCl 25,000 unit In 0.45 % NaCl 1 250ml.bag @ 8.8 UNITS/KG/HR 9.979 mls/hr IV .Q24H [facility] Rx#: [id number] Other: Voiding Method Toilet Urinal Weight 113.398 kg 113.398 kg Results CBC & Chem 7: 07/04/21 08:30 07/04/21 08:30 Labs: Abnormal Lab Results - Last 24 Hours (Table) 07/03/21 07/03/21 07/03/21 Range/Units 16:57 16:57 18:31 WBC 11.3 H (3.8-10.6) k/uL RBC (4.30-5.90) m/uL Hgb (13.0-17.5) gm/dL Hct (39.0-53.0) % Neutrophils # 10.0 H (1.3-7.7) k/uL Lymphocytes # 0.6 L (1.0-4.8) k/uL INR (<1.2) APTT (22.0-30.0) sec Sodium 130 L (137-145) mmol/L Chloride 94 L (98-107) mmol/L Carbon Dioxide (22-30) mmol/L Creatinine 0.63 L (0.66-1.25) mg/dL Glucose 352 H (74-99) mg/dL POC Glucose (mg/dL) (75-99) mg/dL Troponin I 0.069 H* (0.000-0.034) ng/mL Coronavirus (PCR) (Not Detectd) 07/03/21 07/03/21 07/03/21 Range/Units 19:38 20:50 22:08 WBC (3.8-10.6) k/uL RBC (4.30-5.90) m/uL Hgb (13.0-17.5) gm/dL Hct (39.0-53.0) % Neutrophils # (1.3-7.7) k/uL Lymphocytes # (1.0-4.8) k/uL INR (<1.2) APTT (22.0-30.0) sec Sodium (137-145) mmol/L Chloride (98-107) mmol/L Carbon Dioxide (22-30) mmol/L Creatinine (0.66-1.25) mg/dL Glucose (74-99) mg/dL POC Glucose (mg/dL) 312 H (75-99) mg/dL Troponin I 0.045 H* (0.000-0.034) ng/mL Coronavirus (PCR) Detected A (Not Detectd) 07/04/21 07/04/21 07/04/21 Range/Units 00:18 00:53 05:46 WBC (3.8-10.6) k/uL RBC (4.30-5.90) m/uL Hgb (13.0-17.5) gm/dL Hct (39.0-53.0) % Neutrophils # (1.3-7.7) k/uL Lymphocytes # (1.0-4.8) k/uL INR (<1.2) APTT (22.0-30.0) sec Sodium (137-145) mmol/L Chloride (98-107) mmol/L Carbon Dioxide (22-30) mmol/L Creatinine (0.66-1.25) mg/dL Glucose (74-99) mg/dL POC Glucose (mg/dL) 278 H 249 H (75-99) mg/dL Troponin I 0.056 H* (0.000-0.034) ng/mL Coronavirus (PCR) (Not Detectd) 07/04/21 07/04/21 07/04/21 Range/Units 08:30 08:30 08:30 WBC (3.8-10.6) k/uL RBC 4.26 L (4.30-5.90) m/uL Hgb 12.8 L (13.0-17.5) gm/dL Hct 37.4 L (39.0-53.0) % Neutrophils # (1.3-7.7) k/uL Lymphocytes # (1.0-4.8) k/uL INR 1.2 H (<1.2) APTT 56.1 H (22.0-30.0) sec Sodium 134 L (137-145) mmol/L Chloride (98-107) mmol/L Carbon Dioxide 21 L (22-30) mmol/L Creatinine (0.66-1.25) mg/dL Glucose 214 H (74-99) mg/dL POC Glucose (mg/dL) (75-99) mg/dL Troponin I (0.000-0.034) ng/mL Coronavirus (PCR) (Not Detectd) Microbiology - Last 24 Hours (Table) 07/03/21 18:20 Blood Culture Gram Stain - Preliminary Blood 07/03/21 18:31 Blood Culture Gram Stain - Preliminary Blood 07/03/21 18:20 Blood Culture - Final Blood 07/03/21 18:31 Blood Culture - Final Blood Thrombosis Risk Factor Assmnt - Choose All That Apply Any of the Below Risk Factors Present?: Yes Each Factor Represents 1 point: Obesity (BMI >25) Other Risk Factors: No Other congenital or acquired thrombophilia - If yes, enter type in comment: No Thrombosis Risk Factor Assessment Total Risk Factor Score: 1 Thrombosis Risk Factor Assessment Level: Low Risk
[2021-07-04] MEDS: dexAMETHasone 2 MG TAB PO SCH (13:14)
--- NOTE | 2021-07-04 13:47 | CONS ---
CONSULTATION HISTORY OF PRESENT ILLNESS: Marques is a 40-year-old gentleman with history of coronary artery disease, status post angioplasty of the LAD and circumflex coronary artery, [id number] diabetes, hypertension, dyslipidemia, and diabetic neuropathy with non healing left foot ulcer, who comes into hospital complaining of fever, chills, flu-like illness and also complained of chest pain and is admitted to hospital for the same. His initial troponin came back elevated at 0.06 and the subsequent 2 were 0.05 and 0.05. The patient was on aspirin and Brilinta for angioplasty of the circumflex coronary artery that he had in November that he stopped taking about a week ago. He just stopped taking all his medications. He is febrile with a T-max of about 102.9 when he first came in and overnight his blood cultures have come back positive. His clinical presentation seems more related to the foot ulcer and the septicemia and the elevated troponin is of no clear clinical significance at this time. I advised to continue the antiplatelet agents at this time and he is also on IV heparin which I am going to stop at this time and just put him on subcu heparin. He had an echocardiogram this morning that showed mild LV systolic dysfunction with evidence of anteroseptal hypokinesis. The patient had Covid infection back in March, but on this presentation, he has had a Covid test and it has again come back positive. It is unclear whether he had a reinfection or not and he is currently in isolation. PAST MEDICAL HISTORY: Significant for coronary artery disease status post multivessel angioplasty, hypertension, diabetes, dyslipidemia, nonhealing left foot ulcer. MEDICATIONS: At home included: Glucophage 1000 b.i.d., Apresoline 50 b.i.d., Glucotrol, Brilinta, Aldactone, Cozaar, Lasix Pepcid, Cymbalta, Coreg and Lipitor. ALLERGIES: No known drug allergies. FAMILY HISTORY: Negative for premature coronary artery disease. SOCIAL HISTORY: Significant for smoking. There is no history of EtOH abuse or drug abuse. REVIEW OF SYSTEMS: HEENT is unremarkable. CARDIAC as described above. RESPIRATORY as described above. GI negative. ALLERGY/IMMUNOLOGY: None. SKIN negative. MUSCULOSKELETAL: Significant for nonhealing left foot ulcer. CONSTITUTIONAL: Significant for fever, chills, not feeling well. EXAM: Temperature is 99.1, heart rate is 82 beats per minute, blood pressure is 106/62, respirations 18, O2 saturation is 92% on 2 L. LAB: Show a hemoglobin of 12.8, platelet count is 316. Potassium is 3.8, creatinine is 0.7. Troponins are mildly elevated. Echo has been reviewed and EKG shows sinus rhythm with nonspecific ST-T wave changes. A chest x-ray did not show any acute pulmonary process. ASSESSMENT: 1. Fever, febrile illness secondary to septicemia. 2. Elevated troponins of unclear clinical significance. 3. Coronary artery disease, status post multivessel angioplasty. 4. Covid 19 infection, unclear whether this is a reinfection. PLAN: I will treat the patient with optimal medical therapy. Stop the IV heparin, start him on subcu heparin. Once his bacterial infection resolves, he will need evaluation for underlying ischemic heart disease. I will ask Dr. 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 MMODL / IJN: [id number] /
[2021-07-04 14:04] LABS: Glucose,Whole Blood 174 mg/dL (75-99)
[2021-07-04 16:08] LABS: Glucose,Whole Blood 162 mg/dL (75-99)
[2021-07-04] MEDS: HEPARIN SOD,PORK IN 0.45% NACL 25,000 UNIT in 0.45% NACL 1 250ML.BAG IV SCH (17:35)
[2021-07-04] MEDS: AMPICILLIN-SULBACTAM 3 GM in SODIUM CHLORIDE 0.9% 100 ML IVPB SCH ×2 (17:35→23:57)
[2021-07-04 18:09] LABS: Glucose,Whole Blood 156 mg/dL (75-99)
[2021-07-04] MEDS ORDERED: VANCOMYCIN 1,750 MG in SODIUM CHLORIDE 0.9% 500 ML 500 ML IVPB SCH (20:00)
[2021-07-04 20:04] LABS: Glucose,Whole Blood 133 mg/dL (75-99)
[2021-07-04 22:27] LABS: Glucose,Whole Blood 120 mg/dL (75-99)
[2021-07-04] MEDS ORDERED: INSULIN DETEMIR (LEVEMIR) 100 UNIT/ML SYR SQ ONE (22:45)
[2021-07-05 02:03] LABS: Glucose,Whole Blood 178 mg/dL (75-99)
[2021-07-05 06:08] LABS: Glucose,Whole Blood 177 mg/dL (75-99)
[2021-07-05] MEDS: INSULIN ASPART (NovoLOG) 100 UNIT/ML VIAL SQ SCH ×8 (06:09→21:58)
[2021-07-05] MEDS: SODIUM CHLORIDE 0.9% 1,000 ML IV SCH ×2 (06:10→12:39)
[2021-07-05] MEDS: AMPICILLIN-SULBACTAM 3 GM in SODIUM CHLORIDE 0.9% 100 ML IVPB SCH ×3 (06:10→17:25)
[2021-07-05] MEDS: carvediloL 12.5 MG TAB PO SCH ×2 (08:22→21:57)
[2021-07-05] MEDS: dexAMETHasone 2 MG TAB PO SCH (08:22)
[2021-07-05] MEDS: FAMOTIDINE 20 MG TAB PO SCH (08:22)
[2021-07-05] MEDS: CHOLECALCIFEROL 25 MCG (1000 IU) TABLET PO SCH (08:22)
[2021-07-05] MEDS: TICAGRELOR 90 MG TAB PO SCH ×2 (08:22→21:57)
[2021-07-05] MEDS: ASCORBIC ACID 500 MG TAB PO SCH (08:22)
[2021-07-05] MEDS: DULoxetine HCL 60 MG CAPSULE.DR PO SCH (08:22)
[2021-07-05] MEDS: ASPIRIN 81 MG PO SCH (08:23)
[2021-07-05] MEDS: ATORVASTATIN 80 MG TAB PO SCH (08:23)
[2021-07-05] MEDS: ZINC SULFATE 220 MG CAP PO SCH (08:23)
--- NOTE | 2021-07-05 08:24 | P.CONS ---
History of Present Illness - Reason for Consult Consult date: 07/04/21 sepsis Requesting physician: Juancho Parada - Chief Complaint left big toe swelling and redness x 3 days - History of Present Illness History of present illness : Patient is 40-year male with a past medical history difficult for diabetes mellitus patient did have a history of left big toe diabetic foot infection with underlying osteomyelitis secondary to ESBL E. coli for the patient has completed his antibiotic therapy the patient has been noncompliant with his outpatient follow-up and has been seen only once in the wound care center and subsequently has been lost to follow-up patient is now presenting back to the [facility] ER for evaluation of the left big toe swelling and redness with the symptom has been going on for about 2 to 3 days patient complaining of a pressure sensation intensity is about 4-5 out of 10 and no radiation the patient did have some drainage with the symptom the patient was evaluated by ER physician on arrival to the ER the patient did have a fever of 102.9 F patient did have white count of 11.3 kidney function was nor mal troponin was mildly elevated CRP was elevated patient did have a x-rays of the left foot no convincing evidence of osteomyelitis no evidence of acute fracture patient was given a dose of ertapenem subsequent has been admitted to hospital blood cultures coming back positive streptococci collected infectious disease was consulted for further management of antibiotic therapy Review of system: CONSTITUTIONAL: Positive for weakness along with the fever. EYES: No complaint. ENT: No complaint. RESPIRATORY: No complaint. CARDIOVASCULAR: No complaint. GENITOURINARY: No complaint. GASTROINTESTINAL: No complaint. MUSCULOSKELETAL: As per history of present illness. INTEGUMENTARY: As per history of present illness. PSYCHOLOGIC: No complaint. ENDOCRINE: No complaint. NEUROLOGIC: No complaint. Past medical history : Reviewed, documented below Past surgical history : Reviewed, documented below Social history: Reviewed, documented below Medications: Reviewed, as documented below EXAMINATION: Vital sigans= Reviewed and documented below GENERAL DESCRIPTION: Middle-aged male lying in bed, no distress. No tachypnea or accessory muscle of respiration use. HEENT: Shows Pallor , no scleral icterus. Oral mucous membrane is dry. NECK: Trachea central, no thyromegaly. LUNGS: Unlabored breathing. Clear to auscultation anteriorly. No wheeze or crackle. HEART: S1, S2, regular rate and rhythm. ABDOMEN: Soft, no tenderness , guarding or rigidity EXTREMITIES: No edema of feet. Left big toe with a plantar ulcer surrounding callus swelling and redness and minimal drainage purulent SKIN: No rash, no masses palpable. NEUROLOGICAL: The patient is awake, alert, oriented x3, mood and affect normal. LABS AND RADIOLOGY: Reviewed results see below Assessment : Patient presented to hospital with sepsis and this will have fever tachycardia elevated white count source is left big toe diabetic foot infection with underlying infected callus and now with evidence of streptococcal bacteremi a no evidence of any osteomyelitis seen on the plain x-ray Plan: 1-we will consult vascular surgery for excision of this infected callus and to see the extent of the ulcer underlying 2-discontinue ertapenem and vancomycin 3-start the patient on Unasyn 3 g every 6 hours We will follow on clinical condition and cultures to further adjust medication if needed Thank you for this consultation we will follow the patient along with you Past Medical History Past Medical History: Diabetes Mellitus, Hyperlipidemia, Hypertension Additional Past Medical History / Comment(s): neuropathy Last Myocardial Infarction Date:: 11/20/2020 History of Any Multi-Drug Resistant Organisms: ESBL Year Discovered:: 03/03/21 E. coli ESBL MDRO Source:: Left Foot Past Surgical History: Back Surgery, Hernia Repair Additional Past Surgical History / Comment(s): 4 cardiac stents 11/20/2020, 1 cardiac stent 11/23/2020 Past Anesthesia/Blood Transfusion Reactions: No Reported Reaction Past Psychological History: No Psychological Hx Reported, Depression Smoking Status: Never smoker Past Alcohol Use History: None Reported Past Drug Use History: None Reported - Past Family History Mother Family Medical History: Diabetes Mellitus Father Family Medical History: Congestive Heart Failure (CHF), Coronary Artery Disease (CAD), Diabetes Mellitus, Hypertension, Myocardial Infarction ([place]) Additional Family Medical History / Comment(s): father 2018 from [place] Medications and Allergies Home Medications Medication Instructions Recorded Confirmed Type Albuterol Sulfate [Proair Hfa] 2 puff INHALATION RT-Q4H PRN 11/20/20 07/03/21 History Aspirin EC [Ecotrin Low Dose] 81 mg PO DAILY 11/20/20 07/03/21 History DULoxetine HCL [Cymbalta] 60 mg PO DAILY 11/20/20 07/03/21 History Atorvastatin [Lipitor] 80 mg PO DAILY #30 tab 11/24/20 07/03/21 Rx Famotidine [Pepcid] 20 mg PO DAILY #30 tab 11/24/20 07/03/21 Rx INSULIN ASPART (NovoLOG) [NovoLOG 12 unit SQ AC-TID #1 vial 11/24/20 07/03/21 Rx (formulary)] Insulin Detemir (Levemir) [Levemir] 35 unit SQ DAILY #0 11/24/20 07/03/21 Rx Losartan [Cozaar] 100 mg PO DAILY #30 tab 11/24/20 07/03/21 Rx Nitroglycerin Sl Tabs [Nitrostat] 0.4 mg SUBLINGUAL Q5M PRN #25 tab 11/24/20 07/03/21 Rx Ticagrelor [Brilinta] 90 mg PO BID #60 tab 11/24/20 07/03/21 Rx metFORMIN HCL [Glucophage] 1,000 mg PO BID #0 11/24/20 07/03/21 Rx glipiZIDE [Glucotrol] 10 mg PO DAILY 02/15/21 07/03/21 History hydrALAZINE HCL [Apresoline] 50 mg PO BID 02/15/21 07/03/21 History Carvedilol [Coreg] 25 mg PO BID #60 tablet 02/16/21 07/03/21 Rx Spironolactone [Aldactone] 50 mg PO DAILY 03/03/21 07/03/21 History Furosemide [Lasix] 40 mg PO DAILY #60 tab 03/05/21 07/03/21 Rx Allergies Allergy/AdvReac Type Severity Reaction Status Date / Time No Known Allergies Allergy Verified 07/03/21 18:56 Physical Exam Vitals: Vital Signs Temp Pulse Pulse Resp BP BP Pulse Ox 07/04/21 15:43 98.4 F 78 18 111/65 94 L 07/04/21 14:00 82 18 07/04/21 12:00 99.1 F 82 18 106/66 92 L 07/04/21 08:00 98.4 F 80 18 105/65 96 07/04/21 05:34 99.6 F 78 18 93/59 97 07/04/21 04:00 99.2 F 85 18 101/60 95 07/04/21 00:00 99.2 F 101 H 18 138/88 95 07/03/21 20:59 97.4 F L 07/03/21 19:35 98.6 F 103 H 20 142/91 97 07/03/21 16:34 102.9 F H 109 H 20 101/71 97 Intake and Output 07/04/21 07/04/21 07/04/21 06:59 14:59 22:59 Intake Total 82.847 Output Total 600 Balance 82.847 -600 Intake: IV 10 Invasive Line 1 10 Intake, IV Titration 72.847 Amount Heparin Sod,Pork in 0.45% 72.847 NaCl 25,000 unit In 0.45 % NaCl 1 250ml.bag @ 8.8 UNITS/KG/HR 9.979 mls/hr IV .Q24H [facility] Rx#: [id number] Output: Urine 600 Other: Voiding Method Toilet Toilet Urinal Urinal Weight 113.398 kg Results CBC & Chem 7: 07/04/21 08:30 07/04/21 08:30 Labs: Abnormal Lab Results - Last 24 Hours (Table) 07/03/21 07/03/21 07/03/21 Range/Units 16:57 16:57 18:31 WBC 11.3 H (3.8-10.6) k/uL RBC (4.30-5.90) m/uL Hgb (13.0-17.5) gm/dL Hct (39.0-53.0) % Neutrophils # 10.0 H (1.3-7.7) k/uL Lymphocytes # 0.6 L (1.0-4.8) k/uL ESR (0-15) mm/hr INR (<1.2) APTT (22.0-30.0) sec Sodium 130 L (137-145) mmol/L Chloride 94 L (98-107) mmol/L Carbon Dioxide (22-30) mmol/L Creatinine 0.63 L (0.66-1.25) mg/dL Glucose 352 H (74-99) mg/dL POC Glucose (mg/dL) (75-99) mg/dL Troponin I 0.069 H* (0.000-0.034) ng/mL C-Reactive Protein (<1.0) mg/dL Coronavirus (PCR) (Not Detectd) 07/03/21 07/03/21 07/03/21 Range/Units 19:38 20:50 22:08 WBC (3.8-10.6) k/uL RBC (4.30-5.90) m/uL Hgb (13.0-17.5) gm/dL Hct (39.0-53.0) % Neutrophils # (1.3-7.7) k/uL Lymphocytes # (1.0-4.8) k/uL ESR (0-15) mm/hr INR (<1.2) APTT (22.0-30.0) sec Sodium (137-145) mmol/L Chloride (98-107) mmol/L Carbon Dioxide (22-30) mmol/L Creatinine (0.66-1.25) mg/dL Glucose (74-99) mg/dL POC Glucose (mg/dL) 312 H (75-99) mg/dL Troponin I 0.045 H* (0.000-0.034) ng/mL C-Reactive Protein (<1.0) mg/dL Coronavirus (PCR) Detected A (Not Detectd) 07/04/21 07/04/21 07/04/21 Range/Units 00:18 00:53 05:46 WBC (3.8-10.6) k/uL RBC (4.30-5.90) m/uL Hgb (13.0-17.5) gm/dL Hct (39.0-53.0) % Neutrophils # (1.3-7.7) k/uL Lymphocytes # (1.0-4.8) k/uL ESR (0-15) mm/hr INR (<1.2) APTT (22.0-30.0) sec Sodium (137-145) mmol/L Chloride (98-107) mmol/L Carbon Dioxide (22-30) mmol/L Creatinine (0.66-1.25) mg/dL Glucose (74-99) mg/dL POC Glucose (mg/dL) 278 H 249 H (75-99) mg/dL Troponin I 0.056 H* (0.000-0.034) ng/mL C-Reactive Protein (<1.0) mg/dL Coronavirus (PCR) (Not Detectd) 07/04/21 07/04/21 07/04/21 Range/Units 08:30 08:30 08:30 WBC (3.8-10.6) k/uL RBC 4.26 L (4.30-5.90) m/uL Hgb 12.8 L (13.0-17.5) gm/dL Hct 37.4 L (39.0-53.0) % Neutrophils # (1.3-7.7) k/uL Lymphocytes # (1.0-4.8) k/uL ESR (0-15) mm/hr INR 1.2 H (<1.2) APTT 56.1 H (22.0-30.0) sec Sodium 134 L (137-145) mmol/L Chloride (98-107) mmol/L Carbon Dioxide 21 L (22-30) mmol/L Creatinine (0.66-1.25) mg/dL Glucose 214 H (74-99) mg/dL POC Glucose (mg/dL) (75-99) mg/dL Troponin I (0.000-0.034) ng/mL C-Reactive Protein (<1.0) mg/dL Coronavirus (PCR) (Not Detectd) 07/04/21 07/04/21 07/04/21 Range/Units 08:30 08:30 11:37 WBC (3.8-10.6) k/uL RBC (4.30-5.90) m/uL Hgb (13.0-17.5) gm/dL Hct (39.0-53.0) % Neutrophils # (1.3-7.7) k/uL Lymphocytes # (1.0-4.8) k/uL ESR 78 H (0-15) mm/hr INR (<1.2) APTT (22.0-30.0) sec Sodium (137-145) mmol/L Chloride (98-107) mmol/L Carbon Dioxide (22-30) mmol/L Creatinine (0.66-1.25) mg/dL Glucose (74-99) mg/dL POC Glucose (mg/dL) 210 H (75-99) mg/dL Troponin I (0.000-0.034) ng/mL C-Reactive Protein 23.0 H (<1.0) mg/dL Coronavirus (PCR) (Not Detectd) 07/04/21 07/04/21 Range/Units 14:02 16:06 WBC (3.8-10.6) k/uL RBC (4.30-5.90) m/uL Hgb (13.0-17.5) gm/dL Hct (39.0-53.0) % Neutrophils # (1.3-7.7) k/uL Lymphocytes # (1.0-4.8) k/uL ESR (0-15) mm/hr INR (<1.2) APTT (22.0-30.0) sec Sodium (137-145) mmol/L Chloride (98-107) mmol/L Carbon Dioxide (22-30) mmol/L Creatinine (0.66-1.25) mg/dL Glucose (74-99) mg/dL POC Glucose (mg/dL) 174 H 162 H (75-99) mg/dL Troponin I (0.000-0.034) ng/mL C-Reactive Protein (<1.0) mg/dL Coronavirus (PCR) (Not Detectd) Microbiology - Last 24 Hours (Table) 07/03/21 18:31 Blood Culture Gram Stain - Preliminary Blood Blood Culture - Preliminary Strep agalactiae - (group b) 07/03/21 18:20 Blood Culture Gram Stain - Preliminary Blood 07/03/21 18:20 Blood Culture - Final Blood 07/03/21 18:31 Blood Culture - Final Blood
[2021-07-05] MEDS ORDERED: LOSARTAN 50 MG TAB PO SCH (09:00)
--- NOTE | 2021-07-05 10:50 | P.PN ---
Subjective Progress Note Date: 07/05/21 Principal diagnosis: Fever This is a 40-year-old gentleman with coronary artery disease and prior revascularization percutaneously as well as hypertension and dyslipidemia who was admitted to the hospital with fever as well as nonhealing ulcer involving the left foot. We consulted to see the patient because of abnormal troponin. The patient was seen this morning. He denies any symptoms of chest pain or chest discomfort or shortness of breath. The fever is likely secondary to nonhealing ulcer involving the left foot. The troponin is not consistent with acute coronary syndrome and seems to be flat across support. An echo was performed and showed an EF of 45%. Objective - Vital Signs Vital signs: Vital Signs Temp 98.3 F 07/05/21 08:00 Pulse 83 07/05/21 08:00 Resp 20 07/05/21 08:00 BP 136/84 07/05/21 08:00 Pulse Ox 97 07/05/21 08:00 Intake & Output 07/04/21 07/05/21 07/05/21 18:59 06:59 18:59 Intake Total 177.153 50.5 Output Total 600 Balance -422.847 50.5 Weight 112.5 kg Intake: Intake, IV Titration 177.153 50.5 Amount Heparin Sod,Pork in 0.45% 177.153 NaCl 25,000 unit In 0.45 % NaCl 1 250ml.bag @ 8.8 UNITS/KG/HR 9.979 mls/hr IV .Q24H [facility] Rx#: [id number] Insulin Regular 100 unit 50.5 In Sodium Chloride 0.9% 100 ml @ Titrate IV .Q0M [facility] Rx#:[id number] Output: Urine 600 Other: Voiding Method Toilet Toilet Urinal Urinal # Voids 0 - Constitutional General appearance: Present: no acute distress - Respiratory Respiratory: bilateral: CTA - Cardiovascular Rhythm: regular Heart sounds: normal: S1, S2 - Labs CBC & Chem 7: 07/04/21 08:30 07/04/21 08:30 Labs: Abnormal Lab Results - Last 24 Hours (Table) 07/04/21 07/04/21 07/04/21 Range/Units 08:30 08:30 11:37 ESR 78 H (0-15) mm/hr POC Glucose (mg/dL) 210 H (75-99) mg/dL C-Reactive Protein 23.0 H (<1.0) mg/dL 07/04/21 07/04/21 07/04/21 Range/Units 14:02 16:06 18:07 ESR (0-15) mm/hr POC Glucose (mg/dL) 174 H 162 H 156 H (75-99) mg/dL C-Reactive Protein (<1.0) mg/dL 07/04/21 07/04/21 07/05/21 Range/Units 20:02 22:26 02:01 ESR (0-15) mm/hr POC Glucose (mg/dL) 133 H 120 H 178 H (75-99) mg/dL C-Reactive Protein (<1.0) mg/dL 07/05/21 Range/Units 06:06 ESR (0-15) mm/hr POC Glucose (mg/dL) 177 H (75-99) mg/dL C-Reactive Protein (<1.0) mg/dL Microbiology - Last 24 Hours (Table) 07/03/21 18:31 Blood Culture Gram Stain - Preliminary Blood Blood Culture - Preliminary Strep agalactiae - (group b) 07/03/21 18:20 Blood Culture Gram Stain - Preliminary Blood Assessment and Plan Assessment: Assessment #1 fever likely secondary to nonhealing ulcer involving the left heel #2 coronary artery disease and prior revascularization #3 evidence of myocardial injury without evidence of ischemia #4 COVID-19 infection the patient continues to be tested positive #5 multiple comorbid conditions Plan #1 DC heparin IV. The patient has been on heparin for 24 hours #2 continue antiplatelet #3 continue anti-ischemic medication #4 monitor the patient for additional 24-hour
[2021-07-05 12:20] LABS: Glucose,Whole Blood 209 mg/dL (75-99)
--- NOTE | 2021-07-05 14:00 | P.GSCN ---
History of Present Illness Consult date: 07/05/21 Reason for Consult: Great toe debridement Requesting physician: Kaye Bach History of present illness: This is a 40-year-old male with multiple comorbidities including coronary artery disease with history of STEMI status post PCI of the proximal to mid LAD in October of this year as well as PCI to mid RCA in December of this year, ischemic cardiomyopathy with EF of 35-40%, chronic systolic heart failure, hypertension, diabetes mellitus, obesity with a history of a great toe ulcer. The patient states he's had the ulcer for approximately 8 months. Over the past 2-3 days he was getting increased pain redness and drainage so came in for evaluation. He was following with Dr. Louis in the past for treatment of underlying osteomyelitis secondary to ESBL E. coli and finished his antibiotics. At the wound care center however has not been real compliant. States last saw him maybe approximately 2 weeks ago. States he's had debridements in the past however has not healed. He denies any history of peripheral arterial disease. He denies any significant pain of his foot however states has tenderness in the toe ends with redness and drainage. He stated he had some fevers and chills prior to coming in. He is in droplet precautions for Covid 19 positive PCR, however states he's been asymptomatic. He was diagnosed back in March of this year. He had elevated troponins 2. He denies any chest pain currently or shortness of breath. On admission he had a max temp of 102.9. Wound culture came back as strep agalactiae group B. Vascular surgery was consulted for wound debridement and deep tissue culture. X-ray of the left foot shows no convincing evidence of osteomyelitis and no evidence of acute fracture. Review of Systems 14 point review of systems was completed all pertinent positives and negatives as stated in the HPI Past Medical History Past Medical History: Diabetes Mellitus, Hyperlipidemia, Hypertension Additional Past Medical History / Comment(s): neuropathy Last Myocardial Infarction Date:: 11/20/2020 History of Any Multi-Drug Resistant Organisms: ESBL Year Discovered:: 03/03/21 E. coli ESBL MDRO Source:: Left Foot Past Surgical History: Back Surgery, Hernia Repair Additional Past Surgical History / Comment(s): 4 cardiac stents 11/20/2020, 1 cardiac stent 11/23/2020 Past Anesthesia/Blood Transfusion Reactions: No Reported Reaction Past Psychological History: No Psychological Hx Reported, Depression Smoking Status: Never smoker Past Alcohol Use History: None Reported Past Drug Use History: None Reported - Past Family History Mother Family Medical History: Diabetes Mellitus Father Family Medical History: Congestive Heart Failure (CHF), Coronary Artery Disease (CAD), Diabetes Mellitus, Hypertension, Myocardial Infarction ([place]) Additional Family Medical History / Comment(s): father 2018 from [place] Medications and Allergies Home Medications Medication Instructions Recorded Confirmed Type Albuterol Sulfate [Proair Hfa] 2 puff INHALATION RT-Q4H PRN 11/20/20 07/03/21 History Aspirin EC [Ecotrin Low Dose] 81 mg PO DAILY 11/20/20 07/03/21 History DULoxetine HCL [Cymbalta] 60 mg PO DAILY 11/20/20 07/03/21 History Atorvastatin [Lipitor] 80 mg PO DAILY #30 tab 11/24/20 07/03/21 Rx Famotidine [Pepcid] 20 mg PO DAILY #30 tab 11/24/20 07/03/21 Rx INSULIN ASPART (NovoLOG) [NovoLOG 12 unit SQ AC-TID #1 vial 11/24/20 07/03/21 Rx (formulary)] Insulin Detemir (Levemir) [Levemir] 35 unit SQ DAILY #0 11/24/20 07/03/21 Rx Losartan [Cozaar] 100 mg PO DAILY #30 tab 11/24/20 07/03/21 Rx Nitroglycerin Sl Tabs [Nitrostat] 0.4 mg SUBLINGUAL Q5M PRN #25 tab 11/24/20 07/03/21 Rx Ticagrelor [Brilinta] 90 mg PO BID #60 tab 11/24/20 07/03/21 Rx metFORMIN HCL [Glucophage] 1,000 mg PO BID #0 11/24/20 07/03/21 Rx glipiZIDE [Glucotrol] 10 mg PO DAILY 02/15/21 07/03/21 History hydrALAZINE HCL [Apresoline] 50 mg PO BID 02/15/21 07/03/21 History Carvedilol [Coreg] 25 mg PO BID #60 tablet 02/16/21 07/03/21 Rx Spironolactone [Aldactone] 50 mg PO DAILY 03/03/21 07/03/21 History Furosemide [Lasix] 40 mg PO DAILY #60 tab 03/05/21 07/03/21 Rx Allergies Allergy/AdvReac Type Severity Reaction Status Date / Time No Known Allergies Allergy Verified 07/03/21 18:56 Surgical - Exam Vital Signs Temp Pulse Resp BP Pulse Ox 102.9 F H 109 H 20 101/71 97 07/03/21 16:34 07/03/21 16:34 07/03/21 16:34 07/03/21 16:34 07/03/21 16:34 General appearance: The patient is alert, oriented, appears in no acute distress. HET: Head is normocephalic and atraumatic. Pupils are equal and reactive. Oropharynx is clear without lesions. Neck: Supple without lymphadenopathy. Trachea midline. Heart: S1 S2. Regular rate and rhythm. Lungs: Clear to auscultation.. Abdomen: Soft, nontender, nondistended. Extremities: Normal skin color and turgor. Diabetic ulcer medial aspect of left great toe with pus pocket. Palpable bilateral dorsalis pedis and posterior tibialis pulses. Neurological: No focal deficits. Alert and oriented 3. Results - Labs 07/04/21 08:30 07/04/21 08:30 Abnormal Lab Results - Last 24 Hours (Table) 07/04/21 07/04/21 07/04/21 Range/Units 08:30 08:30 11:37 ESR 78 H (0-15) mm/hr POC Glucose (mg/dL) 210 H (75-99) mg/dL C-Reactive Protein 23.0 H (<1.0) mg/dL 07/04/21 07/04/21 07/04/21 Range/Units 14:02 16:06 18:07 ESR (0-15) mm/hr POC Glucose (mg/dL) 174 H 162 H 156 H (75-99) mg/dL C-Reactive Protein (<1.0) mg/dL 07/04/21 07/04/21 07/05/21 Range/Units 20:02 22:26 02:01 ESR (0-15) mm/hr POC Glucose (mg/dL) 133 H 120 H 178 H (75-99) mg/dL C-Reactive Protein (<1.0) mg/dL 07/05/21 Range/Units 06:06 ESR (0-15) mm/hr POC Glucose (mg/dL) 177 H (75-99) mg/dL C-Reactive Protein (<1.0) mg/dL Microbiology - Last 24 Hours (Table) 07/03/21 18:31 Blood Culture Gram Stain - Preliminary Blood Blood Culture - Preliminary Strep agalactiae - (group b) 07/03/21 18:20 Blood Culture Gram Stain - Preliminary Blood - Imaging Comments: X-ray left foot shows no convincing evidence of osteomyelitis. No evidence of acute fracture. Skin defect involving the medial aspect of first digit. Assessment and Plan Assessment: 1. Infected left great toe diabetic ulcer 2. Diabetes mellitus, type II 3. History of coronary artery disease Plan: 1. Continue dressing changes as ordered 2. Plan for surgical debridement and deep tissue culture on Monday 3. Nothing by mouth after midnight Monday Thank you for this consultation, we will continue to follow. The impression and plan of care has been dictated as directed. Dr. Matute I performed a history and examination of this patient, discussed the same with the dictator. I agree with the dictator's note ,documented as a scribe. Any additional findings or plans will be noted.
[2021-07-05] MEDS ORDERED: LOSARTAN 50 MG TAB PO STA (14:23)
--- NOTE | 2021-07-05 14:26 | P.PN ---
Subjective Progress Note Date: 07/05/21 HISTORY OF PRESENT ILLNESS This is a 40-year-old male patient of Dr. Anne and Dr. Abad with past medical history of anterior ST elevated myocardial infarction status post PCI of the proximal to mid LAD on 11/20/2020 and PCI to the mid RCA on 11/1701/17/2021, ischemic cardiomyopathy with ejection fraction of 3540 percent, chronic systolic heart failure, hypertension, diabetes mellitus type 2, obesity great toe ulcer. Patient's last hospitalization was in February 2021 at which time he was treated for left great toe cellulitis with osteomyelitis. Patient was seen by Dr. Louis patient was discharged on Invanz 1 g daily for 6 weeks. Patient stopped taking his medication and when asked, patient states he just forgot to take it for a week. He also states that he change the type of dressing that he uses on his toe and now toe is swollen red with drainage. His blood sugars at home were apparently in the 300s. He states he has been off work for the past 3 days. He denies any shortness of breath. He complains of nausea and fever and feeling "super sick." Patient also complains of chest pain, pressure type. Patient came into [facility] emergency center for evaluation. Temperature was 102.9, heart rate 109, blood pressure 101/71 and pulse ox 97% on room air. EKG was sinus tachycardia inverted T-wave in leads 2, 3, aVF. WBC 11.3, lymphocytes 0.6. Sodium 130, potassium 4.2, creatinine 0.63, blood sugar 352. Lactic acid 1.2. Liver function tests normal. Troponin 0.069, 0.045, 0.056. COVID-19 detected. Blood culture is showing strep galactorrhea group B. Left foot x-ray revealed no convincing evidence of osteomyelitis. No evidence of acute fracture. Skin defect of the medial aspect of the first digit. Chest x-ray reveals no acute cardiopulmonary disease. Echocardiogram reveals EF of 45-50% with mild concentric left ventricular hypertrophy, mild mitral regurgitation, mild tricuspid regurgitation. Patient has been admitted to the cardiac stepdown unit, consult in place with cardiology and infectious disease. 07/05: Patient denies having any chest pain, no fever or chills. has been seen by cardiology and acute coronary syndrome has been ruled out, heparin drip will be discontinued. Plan to continue antiplatelet and anti-ischemic medication and monitor the patient for additional 24 hours. Patient has been seen by vascular surgery with plan for debridement of the left great toe on Monday. Patient remains afebrile, heart rate 83, blood pressure 136/84, pulse ox 97% on room air. Blood sugars are running between 120 and 209. Levemir increased to 25 units at bedtime to start tonight. Sed rate 78, C-reactive protein 23. Blood culture is positive for strep agalactia. Patient is also seen by Dr. Louis. Patient will be transferred to [facility] floor. REVIEW OF SYSTEMS Constitutional: Reports fever, Reports chills, no night sweats. No weight change. No weakness, Reports fatigue Reports lethargy. No daytime sleepiness. EENT: No headache. No blurred vision or double vision, no loss of vision. No loss of Hearing, no ringing in the ears, no dizziness. No nasal drainage or congestion. No epistaxis. No sore throat. Lungs: No shortness of breath, cough, no sputum production. No wheezing. Cardiovascular: Reports chest pain, no lower extremity edema. No palpitations. No paroxysmal nocturnal dyspnea. No orthopnea. No lightheadedness or dizziness. No syncopal episodes. Abdominal: No abdominal pain. No nausea, vomiting. No diarrhea. No constipation. No bloody or tarry stools.. No loss of appetite. Genitourinary: No dysuria, increased frequency, urgency. No urinary retention. Musculoskeletal: No myalgias. No muscle weakness, no gait dysfunction, no freq uent falls. No back pain. No neck pain. Integumentary: Left great toe wounds, no lesions. No rash or pruritus. No unusual bruising. No change in hair or nails. Neurologic: No aphasia. No facial droop. No change in mentation. No head injury. No headache. No paralysis. No paresthesia. Psychiatric: No depression. No anxiety. No mood swings. Endocrine: Reports abnormal blood sugars with hyperglycemia. No weight change. No excessive sweating or thirst. No cold intolerance. PHYSICAL EXAMINATION Gen: This is a 40-year-old male. He is resting in bed and appears to be in no acute distress. HEENT: Head is atraumatic, normocephalic. Pupils equal, round. Sclerae is anicteric. NECK: Supple. No JVD. No lymphadenopathy. No thyromegaly. LUNGS: Clear to auscultation. No wheezes or rhonchi. No intercostal retractions. HEART: Regular rate and rhythm. No murmur. ABDOMEN: Soft. Bowel sounds are present. No masses. No tenderness. EXTREMITIES: Left foot has wound to the plantar surface of the great toe and wound between the first and second toes, serous drainage. Unable to palpate dorsalis pedis on the left foot. 1+ dorsalis pedis on the right foot. NEUROLOGICAL: Patient is awake, alert and oriented x3. Cranial nerves 2 through 12 are grossly intact. ASSESSMENT AND PLAN 1. Sepsis secondary to Left great toe ulcer, suspected osteomyelitis. Patient started on Invanz and vancomycin, consult with infectious disease, consult with vascular surgery for debridement scheduled for Monday. 2. COVID-19 infection without pneumonia. Patient started on dexamethasone 6 mg daily, vitamin supplements, anticoagulation with heparin drip. 3. Abnormal troponins, Non-ST elevated myocardial infarction ruled out. Echocardiogram as above, cardiology consult appreciated, heparin drip discontinued, continue aspirin 81 mg daily, Lipitor 80 mg daily, Coreg 25 mg twice daily, Brilinta 90 mg twice daily. 4. Diabetes mellitus type 2 uncontrolled with hyperglycemia secondary to noncompliance. Patient started on insulin drip, obtained A1c. 5. Hypertension. Blood pressure initially on the soft side. Losartan will be increased back to 100 mg daily, and hold hydralazine and Aldactone until blood pressure recovers from sepsis. Cardiology is following. 6. Ischemic cardiomyopathy with chronic systolic heart failure. Continue Coreg 25 mg twice daily, Lasix and Aldactone on hold. 7. Coronary artery disease with previous anterior ST elevated myocardial infarction status post PCI of the proximal to mid LAD on 11/20/2020 and PCI to the mid RCA on 11/1701/17/2021. Continue Brilinta 90 mg twice daily, Coreg, L ipitor 80 mg daily, aspirin 81 mg daily. 8. Hyperlipidemia. Continue atorvastatin 80 mg daily. 9. Generalized anxiety disorder. Continue Cymbalta 60 mg daily. 10. Gastroesophageal reflux disease and GI prophylaxis. Pepcid daily. 11. DVT prophylaxis. heparin drip. DISCHARGE PLAN Home. Patient most likely will require IV antibiotics at discharge. Impression and plan of care have been directed as dictated by the signing physician. Kaye Bach nurse practitioner acting as scribe for signing physician. Objective - Vital Signs Vital signs: Vital Signs Temp 98.3 F 07/05/21 08:00 Pulse 83 07/05/21 08:00 Resp 20 07/05/21 08:00 BP 136/84 07/05/21 08:00 Pulse Ox 97 07/05/21 08:00 Intake & Output 07/04/21 07/05/21 07/05/21 18:59 06:59 18:59 Intake Total 177.153 50.5 Output Total 600 Balance -422.847 50.5 Weight 112.5 kg Intake: Intake, IV Titration 177.153 50.5 Amount Heparin Sod,Pork in 0.45% 177.153 NaCl 25,000 unit In 0.45 % NaCl 1 250ml.bag @ 8.8 UNITS/KG/HR 9.979 mls/hr IV .Q24H [facility] Rx#: [id number] Insulin Regular 100 unit 50.5 In Sodium Chloride 0.9% 100 ml @ Titrate IV .Q0M [facility]ZA Rx#:[id number] Output: Urine 600 Other: Voiding Method Toilet Toilet Urinal Urinal # Voids 0 - Labs CBC & Chem 7: 07/04/21 08:30 07/04/21 08:30 Labs: Abnormal Lab Results - Last 24 Hours (Table) 07/04/21 07/04/21 07/04/21 Range/Units 08:30 08:30 11:37 ESR 78 H (0-15) mm/hr POC Glucose (mg/dL) 210 H (75-99) mg/dL C-Reactive Protein 23.0 H (<1.0) mg/dL 07/04/21 07/04/21 07/04/21 Range/Units 14:02 16:06 18:07 ESR (0-15) mm/hr POC Glucose (mg/dL) 174 H 162 H 156 H (75-99) mg/dL C-Reactive Protein (<1.0) mg/dL 07/04/21 07/04/21 07/05/21 Range/Units 20:02 22:26 02:01 ESR (0-15) mm/hr POC Glucose (mg/dL) 133 H 120 H 178 H (75-99) mg/dL C-Reactive Protein (<1.0) mg/dL 07/05/21 Range/Units 06:06 ESR (0-15) mm/hr POC Glucose (mg/dL) 177 H (75-99) mg/dL C-Reactive Protein (<1.0) mg/dL Microbiology - Last 24 Hours (Table) 07/03/21 18:31 Blood Culture Gram Stain - Preliminary Blood Blood Culture - Preliminary Strep agalactiae - (group b) 07/03/21 18:20 Blood Culture Gram Stain - Preliminary Blood
[2021-07-05] MEDS ORDERED: ALBUTEROL HFA INHALER INHALATION PRN (15:16)
[2021-07-05 16:57] LABS: Glucose,Whole Blood 252 mg/dL (75-99)
[2021-07-05] MEDS ORDERED: VANCOMYCIN TROUGH DUE 1 EACH MISC MISCELLANE ONE (19:00)
[2021-07-05 20:11] LABS: Glucose,Whole Blood 240 mg/dL (75-99)
[2021-07-05] MEDS: INSULIN DETEMIR (LEVEMIR) 100 UNIT/ML SYR SQ SCH (21:57)
--- NOTE | 2021-07-05 22:18 | PN ---
PROGRESS NOTE DATE OF SERVICE: 07/05/2021 REASON FOR FOLLOWUP: Left big toe diabetic foot infection with bacteremia. INTERVAL HISTORY: Patient is afebrile. The patient is breathing comfortably. Patient denies having any chest pain, shortness of breath or cough. No nausea, vomiting. No abdominal pain or pain to the left big toe area. PHYSICAL EXAMINATION: Blood pressure 134/82 with a pulse of 69, temperature 98.4. He is 96% on room air. General description is a middle-aged male lying in bed in no distress. Respiratory system: Unlabored breathing, clear to auscultation anteriorly. Heart S1, S2. Regular rate and rhythm. Abdomen soft, no tenderness. Left big toe is currently dressed, no obvious drainage on the dressing. LABS: Repeat blood cultures have been negative so far. DIAGNOSTIC IMPRESSION AND PLAN: Patient with left big toe diabetic infection with streptococcal bacteremia. Patient is covered with Unasyn. Waiting for surgical debridement. Continue supportive care. MMODL / IJN: [id number] /
[2021-07-05] MEDS ORDERED: INSULIN ASPART (NovoLOG) 100 UNIT/ML VIAL SQ SCH (22:39)
[2021-07-06 00:04] LABS: Glucose,Whole Blood 191 mg/dL (75-99)
[2021-07-06] MEDS: SODIUM CHLORIDE 0.9% 1,000 ML IV SCH ×3 (01:42→21:12)
[2021-07-06] MEDS: AMPICILLIN-SULBACTAM 3 GM in SODIUM CHLORIDE 0.9% 100 ML IVPB SCH ×5 (01:42→22:50)
[2021-07-06 04:01] LABS: Glucose,Whole Blood 139 mg/dL (75-99)
[2021-07-06] MEDS: INSULIN ASPART (NovoLOG) 100 UNIT/ML VIAL SQ SCH ×8 (05:47→21:13)
[2021-07-06 06:30] LABS: HCT 36.8 % (39.0-53.0); HGB 12.8 gm/dL (13.0-17.5); MCH 29.5 pg (25.0-35.0); MCHC 34.8 g/dL (31.0-37.0); MCV 84.8 fL (80.0-100.0); Mean Platelet Volume 8.4; Platelet Count 241 k/uL (150-450); RBC 4.34 m/uL (4.30-5.90); RDW 14.1 % (11.5-15.5); WBC 8.6 k/uL (3.8-10.6)
[2021-07-06 06:35] LABS: African American GFR (CKD) >90 (>60 ml/min/1.73 sqM); Anion Gap 7 mmol/L; Blood Urea Nitrogen 16 mg/dL (9-20); Calcium 9.1 mg/dL (8.4-10.2); Carbon Dioxide 26 mmol/L (22-30); Chloride 107 mmol/L (98-107); Glucose 129 mg/dL (74-99); Non-African American GFR(CKD) >90 (>60 ml/min/1.73 sqM); Potassium 3.8 mmol/L (3.5-5.1); Sodium 140 mmol/L (137-145)
--- NOTE | 2021-07-06 07:24 | P.PN ---
Subjective Progress Note Date: 07/06/21 Principal diagnosis: Fever This is a 40-year-old gentleman with coronary artery disease and prior revascularization percutaneously as well as hypertension and dyslipidemia who was admitted to the hospital with fever as well as nonhealing ulcer involving the left foot. We consulted to see the patient because of abnormal troponin. The patient has been doing well from the cardiovascular standpoint overview. He reports is no symptoms of chest pain or chest discomfort or shortness of breath or dizziness or lightheadedness. He has been maintaining normal sinus mechanism. Hemodynamically he is stable. He is on dual antiplatelet therapy along with high intensity statin. He is in process of having left foot debridement procedure in the next few days. Objective - Vital Signs Vital signs: Vital Signs Temp 98.0 F 07/06/21 04:00 Pulse 70 07/06/21 04:00 Resp 18 07/06/21 04:00 BP 144/95 07/06/21 04:00 Pulse Ox 97 07/06/21 04:00 Intake & Output 07/05/21 07/06/21 07/06/21 18:59 06:59 18:59 Intake Total 900 Output Total 500 Balance 900 -500 Weight 112.2 kg Intake: Intake, IV Titration 900 Amount Ampicillin-Sulbactam 3 gm 100 In Sodium Chloride 0.9% 100 ml @ 200 mls/hr IVPB Q6HR [facility] Rx#:[id number] Sodium Chloride 0.9% 1, 800 000 ml @ 100 mls/hr IV . Q10H [facility] Rx#:[id number] Oral 0 Output: Urine 500 Other: Voiding Method Toilet Urinal # Voids 3 # Bowel Movements 0 - Constitutional General appearance: Present: no acute distress - Respiratory Respiratory: bilateral: CTA - Cardiovascular Rhythm: regular Heart sounds: normal: S1, S2 - Labs CBC & Chem 7: 07/06/21 06:00 07/06/21 06:00 Labs: Abnormal Lab Results - Last 24 Hours (Table) 07/05/21 07/05/21 07/05/21 Range/Units 11:13 12:13 16:54 Hgb (13.0-17.5) gm/dL Hct (39.0-53.0) % APTT 31.3 H (22.0-30.0) sec Glucose (74-99) mg/dL POC Glucose (mg/dL) 209 H 252 H (75-99) mg/dL 07/05/21 07/06/21 07/06/21 Range/Units 20:10 00:02 03:59 Hgb (13.0-17.5) gm/dL Hct (39.0-53.0) % APTT (22.0-30.0) sec Glucose (74-99) mg/dL POC Glucose (mg/dL) 240 H 191 H 139 H (75-99) mg/dL 07/06/21 07/06/21 Range/Units 06:00 06:00 Hgb 12.8 L (13.0-17.5) gm/dL Hct 36.8 L (39.0-53.0) % APTT (22.0-30.0) sec Glucose 129 H (74-99) mg/dL POC Glucose (mg/dL) (75-99) mg/dL Microbiology - Last 24 Hours (Table) 07/03/21 18:20 Blood Culture Gram Stain - Preliminary Blood Blood Culture - Preliminary Strep agalactiae - (group b) 07/03/21 18:31 Blood Culture Gram Stain - Preliminary Blood Blood Culture - Preliminary Strep agalactiae - (group b) 07/04/21 08:30 Blood Culture - Preliminary Blood No Growth after 24 hours Assessment and Plan Assessment: Assessment #1 fever likely secondary to nonhealing ulcer involving the left heel #2 coronary artery disease and prior revascularization #3 evidence of myocardial injury without evidence of ischemia #4 COVID-19 infection the patient continues to be tested positive #5 multiple comorbid conditions Plan #1 continue the current medical regimen #2 the patient is in process of having left foot debridement in the next few days #3 follow-up with the patient
[2021-07-06 08:07] LABS: Glucose,Whole Blood 128 mg/dL (75-99)
[2021-07-06] MEDS: ASPIRIN 81 MG PO SCH (08:35)
[2021-07-06] MEDS: ASCORBIC ACID 500 MG TAB PO SCH (08:35)
[2021-07-06] MEDS: ZINC SULFATE 220 MG CAP PO SCH (08:35)
[2021-07-06] MEDS: LOSARTAN 50 MG TAB PO SCH (08:35)
[2021-07-06] MEDS: dexAMETHasone 2 MG TAB PO SCH (08:35)
[2021-07-06] MEDS: TICAGRELOR 90 MG TAB PO SCH ×2 (08:35→21:14)
[2021-07-06] MEDS: FAMOTIDINE 20 MG TAB PO SCH (08:35)
[2021-07-06] MEDS: carvediloL 12.5 MG TAB PO SCH ×2 (08:35→21:12)
[2021-07-06] MEDS: ATORVASTATIN 80 MG TAB PO SCH (08:35)
[2021-07-06] MEDS: CHOLECALCIFEROL 25 MCG (1000 IU) TABLET PO SCH (08:35)
[2021-07-06] MEDS: DULoxetine HCL 60 MG CAPSULE.DR PO SCH (08:39)
--- NOTE | 2021-07-06 11:29 | P.PN ---
Subjective Progress Note Date: 07/06/21 Patient is seen and examined sitting up in bed. He denies any acute changes through the night. He denies any fevers or chills. He is been afebrile. No leukocytosis. He remains on Unasyn IV antibiotics per recommendations from infectious disease. Objective - Vital Signs Vital signs: Vital Signs Temp 98.0 F 07/06/21 04:00 Pulse 70 07/06/21 04:00 Resp 18 07/06/21 04:00 BP 144/95 07/06/21 04:00 Pulse Ox 97 07/06/21 04:00 Intake & Output 07/05/21 07/06/21 07/06/21 18:59 06:59 18:59 Intake Total 900 Output Total 500 Balance 900 -500 Weight 112.2 kg Intake: Intake, IV Titration 900 Amount Ampicillin-Sulbactam 3 gm 100 In Sodium Chloride 0.9% 100 ml @ 200 mls/hr IVPB Q6HR [facility] Rx#:[id number] Sodium Chloride 0.9% 1, 800 000 ml @ 100 mls/hr IV . Q10H [facility] Rx#:[id number] Oral 0 Output: Urine 500 Other: Voiding Method Toilet Urinal # Voids 3 # Bowel Movements 0 - Exam General appearance: The patient is alert, oriented, in no acute distress. HET: Head is normocephalic and atraumatic. Pupils are equal and reactive. Oropharynx is clear without lesions. Extremities: Normal skin color and turgor. Left great toe medial aspect with diabetic ulcer with no noted drainage or foul odor. Palpable dorsalis pedis and posterior tibialis pulses. Neurological: No focal deficits. Alert and oriented 3.. - Labs CBC & Chem 7: 07/06/21 06:00 07/06/21 06:00 Labs: Abnormal Lab Results - Last 24 Hours (Table) 07/05/21 07/05/21 07/05/21 Range/Units 11:13 12:13 16:54 Hgb (13.0-17.5) gm/dL Hct (39.0-53.0) % APTT 31.3 H (22.0-30.0) sec Glucose (74-99) mg/dL POC Glucose (mg/dL) 209 H 252 H (75-99) mg/dL 12/01/1807/06/21 07/06/21 Range/Units 20:10 00:02 03:59 Hgb (13.0-17.5) gm/dL Hct (39.0-53.0) % APTT (22.0-30.0) sec Glucose (74-99) mg/dL POC Glucose (mg/dL) 240 H 191 H 139 H (75-99) mg/dL 07/06/21 07/06/21 07/06/21 Range/Units 06:00 06:00 08:04 Hgb 12.8 L (13.0-17.5) gm/dL Hct 36.8 L (39.0-53.0) % APTT (22.0-30.0) sec Glucose 129 H (74-99) mg/dL POC Glucose (mg/dL) 128 H (75-99) mg/dL Microbiology - Last 24 Hours (Table) 07/03/21 18:20 Blood Culture Gram Stain - Preliminary Blood Blood Culture - Preliminary Strep agalactiae - (group b) 07/03/21 18:31 Blood Culture Gram Stain - Preliminary Blood Blood Culture - Preliminary Strep agalactiae - (group b) 07/04/21 08:30 Blood Culture - Preliminary Blood No Growth after 24 hours Assessment and Plan Assessment: 1. Infected left great toe diabetic ulcer 2. Diabetes mellitus, type II 3. History of coronary artery disease Plan: 1. Continue dressing changes as ordered 2. Plan for surgical debridement and deep tissue culture Tomorrow 3. Nothing by mouth after midnight 4. Continue IV antibiotics per recommendations from infectious disease Thank you for this consultation, we will continue to follow. The impression and plan of care has been dictated as directed. Dr. Matute I performed a history and examination of this patient, discussed the same with the dictator. I agree with the dictator's note ,documented as a scribe. Any additional findings or plans will be noted.
[2021-07-06 12:00] LABS: Glucose,Whole Blood 163 mg/dL (75-99)
[2021-07-06] MEDS ORDERED: amLODIPine 5 MG TAB PO SCH (13:30)
--- NOTE | 2021-07-06 15:04 | P.PN ---
Subjective Progress Note Date: 07/06/21 HISTORY OF PRESENT ILLNESS This is a 40-year-old male patient of Dr. Anne and Dr. Abad with past medical history of anterior ST elevated myocardial infarction status post PCI of the proximal to mid LAD on 11/20/2020 and PCI to the mid RCA on 11/1701/17/2021, ischemic cardiomyopathy with ejection fraction of 3540 percent, chronic systolic heart failure, hypertension, diabetes mellitus type 2, obesity great toe ulcer. Patient's last hospitalization was in February 2021 at which time he was treated for left great toe cellulitis with osteomyelitis. Patient was seen by Dr. Louis patient was discharged on Invanz 1 g daily for 6 weeks. Patient stopped taking his medication and when asked, patient states he just forgot to take it for a week. He also states that he change the type of dressing that he uses on his toe and now toe is swollen red with drainage. His blood sugars at home were apparently in the 300s. He states he has been off work for the past 3 days. He denies any shortness of breath. He complains of nausea and fever and feeling "super sick." Patient also complains of chest pain, pressure type. Patient came into [facility] emergency center for evaluation. Temperature was 102.9, heart rate 109, blood pressure 101/71 and pulse ox 97% on room air. EKG was sinus tachycardia inverted T-wave in leads 2, 3, aVF. WBC 11.3, lymphocytes 0.6. Sodium 130, potassium 4.2, creatinine 0.63, blood sugar 352. Lactic acid 1.2. Liver function tests normal. Troponin 0.069, 0.045, 0.056. COVID-19 detected. Blood culture is showing strep galactorrhea group B. Left foot x-ray revealed no convincing evidence of osteomyelitis. No evidence of acute fracture. Skin defect of the medial aspect of the first digit. Chest x-ray reveals no acute cardiopulmonary disease. Echocardiogram reveals EF of 45-50% with mild concentric left ventricular hypertrophy, mild mitral regurgitation, mild tricuspid regurgitation. Patient has been admitted to the cardiac stepdown unit, consult in place with cardiology and infectious disease. 07/05: Patient denies having any chest pain, no fever or chills. has been seen by cardiology and acute coronary syndrome has been ruled out, heparin drip will be discontinued. Plan to continue antiplatelet and anti-ischemic medication and monitor the patient for additional 24 hours. Patient has been seen by vascular surgery with plan for debridement of the left great toe on Monday. Patient remains afebrile, heart rate 83, blood pressure 136/84, pulse ox 97% on room air. Blood sugars are running between 120 and 209. Levemir increased to 25 units at bedtime to start tonight. Sed rate 78, C-reactive protein 23. Blood culture is positive for strep agalactia. Patient is also seen by Dr. Louis. Patient will be transferred to the [facility] floor. 07/06 patient examined bedside. He denies any pain in his legs. Denies any fever or chills. Continues remains on Unasyn per infectious disease recommen dations. Telemetry suggest normal sinus rhythm. Plan for debridement of left for tomorrow. Vitals evaluated temp 98.1 pulse 69 respiratory rate 18. Blood pressure 150/104. Labs reviewed A.6 hemoglobin 12.8. Blood sugar are controlled on the current regimen. A1c is 13.5. Patient would benefit from diabetic education. Patient to stay on dual antiplatelets for debridement by vascular surgery. Norvasc 5 mg by mouth once. Hydralazine initiated at 50 mg by mouth twice a day REVIEW OF SYSTEMS Constitutional: No fever, no chills, no night sweats. No weight change. No weakness, Reports fatigue Reports lethargy. No daytime sleepiness. EENT: No headache. No blurred vision or double vision, no loss of vision. No loss of Hearing, no ringing in the ears, no dizziness. No nasal drainage or congestion. No epistaxis. No sore throat. Lungs: No shortness of breath, cough, no sputum production. No wheezing. Cardiovascular: Chest pain resolved, no lower extremity edema. No palpitations. No paroxysmal nocturnal dyspnea. No orthopnea. No lightheadedness or dizziness. No syncopal episodes. Abdominal: No abdominal pain. No nausea, vomiting. No diarrhea. No constipation. No bloody or tarry stools.. No loss of appetite. Genitourinary: No dysuria, increased frequency, urgency. No urinary retention. Musculoskeletal: No myalgias. No muscle weakness, no gait dysfunction, no frequent falls. No back pain. No neck pain. Integumentary: Left great toe wounds, no lesions. No rash or pruritus. No unusual bruising. No change in hair or nails. Neurologic: No aphasia. No facial droop. No change in mentation. No head injury. No headache. No paralysis. No paresthesia. Psychiatric: No depression. No anxiety. No mood swings. Endocrine: Reports abnormal blood sugars with hyperglycemia. No weight change. No excessive sweating or thirst. No cold intolerance. PHYSICAL EXAMINATION Gen: This is a 40-year-old male. He is resting in bed and appears to be in no acute distress. HEENT: Head is atraumatic, normocephalic. Pupils equal, round. Sclerae is anicteric. NECK: Supple. No JVD. No lymphadenopathy. No thyromegaly. LUNGS: Clear to auscultation. No wheezes or rhonchi. No intercostal retractions. HEART: Regular rate and rhythm. No murmur. ABDOMEN: Soft. Bowel sounds are present. No masses. No tenderness. EXTREMITIES: Left foot has wound to the plantar surface of the great toe and wound between the first and second toes, serous drainage. Unable to palpate dorsalis pedis on the left foot. 1+ dorsalis pedis on the right foot. NEUROLOGICAL: Patient is awake, alert and oriented x3. Cranial nerves 2 through 12 are grossly intact. ASSESSMENT AND PLAN 1. Sepsis secondary to Left great toe ulcer, suspected osteomyelitis. Patient started on Invanz and vancomycin, consult with infectious disease, consult with vascular surgery for debridement scheduled for Monday. 2. Hypertension. Losartan 100 mg daily, hydralazine restarted continue to hold Aldactone Cardiology is following. 3. Abnormal troponins, Non-ST elevated myocardial infarction ruled out. Ec hocardiogram as above, cardiology consult appreciated, heparin drip discontinued, continue aspirin 81 mg daily, Lipitor 80 mg daily, Coreg 25 mg twice daily, Brilinta 90 mg twice daily. 4. Diabetes mellitus type 2 uncontrolled with hyperglycemia secondary to noncompliance. Patient started on insulin drip, obtained A1c. 5.COVID-19 infection without pneumonia. Patient started on dexamethasone 6 mg daily, vitamin supplements, anticoagulation with heparin drip. 6. Ischemic cardiomyopathy with chronic systolic heart failure. Continue Coreg 25 mg twice daily, Lasix and Aldactone on hold. 7. Coronary artery disease with previous anterior ST elevated myocardial infarction status post PCI of the proximal to mid LAD on 11/20/2020 and PCI to the mid RCA on 11/1701/17/2021. Continue Brilinta 90 mg twice daily, Coreg, Lipitor 80 mg daily, aspirin 81 mg daily. 8. Hyperlipidemia. Continue atorvastatin 80 mg daily. 9. Generalized anxiety disorder. Continue Cymbalta 60 mg daily. 10. Gastroesophageal reflux disease and GI prophylaxis. Pepcid daily. 11. DVT prophylaxis. heparin drip. DISCHARGE PLAN Home. Patient most likely will require IV antibiotics at discharge. Objective - Vital Signs Vital signs: Vital Signs Temp 98.0 F 07/06/21 04:00 Pulse 70 07/06/21 04:00 Resp 18 07/06/21 04:00 BP 144/95 07/06/21 04:00 Pulse Ox 97 07/06/21 04:00 Intake & Output 07/05/21 07/06/21 07/06/21 18:59 06:59 18:59 Intake Total 900 Output Total 500 Balance 900 -500 Weight 112.2 kg Intake: Intake, IV Titration 900 Amount Ampicillin-Sulbactam 3 gm 100 In Sodium Chloride 0.9% 100 ml @ 200 mls/hr IVPB Q6HR [facility]ZA Rx#:[id number] Sodium Chloride 0.9% 1, 800 000 ml @ 100 mls/hr IV . Q10H LIZA Rx#:[id number] Oral 0 Output: Urine 500 Other: Voiding Method Toilet Urinal # Voids 3 # Bowel Movements 0 - Labs CBC & Chem 7: 07/06/21 06:00 07/06/21 06:00 Labs: Abnormal Lab Results - Last 24 Hours (Table) 07/05/21 07/05/21 07/05/21 Range/Units 11:13 12:13 16:54 Hgb (13.0-17.5) gm/dL Hct (39.0-53.0) % APTT 31.3 H (22.0-30.0) sec Glucose (74-99) mg/dL POC Glucose (mg/dL) 209 H 252 H (75-99) mg/dL 07/05/21 07/06/21 07/06/21 Range/Units 20:10 00:02 03:59 Hgb (13.0-17.5) gm/dL Hct (39.0-53.0) % APTT (22.0-30.0) sec Glucose (74-99) mg/dL POC Glucose (mg/dL) 240 H 191 H 139 H (75-99) mg/dL 07/06/21 07/06/21 07/06/21 Range/Units 06:00 06:00 08:04 Hgb 12.8 L (13.0-17.5) gm/dL Hct 36.8 L (39.0-53.0) % APTT (22.0-30.0) sec Glucose 129 H (74-99) mg/dL POC Glucose (mg/dL) 128 H (75-99) mg/dL Microbiology - Last 24 Hours (Table) 07/03/21 18:20 Blood Culture Gram Stain - Preliminary Blood Blood Culture - Preliminary Strep agalactiae - (group b) 07/03/21 18:31 Blood Culture Gram Stain - Preliminary Blood Blood Culture - Preliminary Strep agalactiae - (group b) 07/04/21 08:30 Blood Culture - Preliminary Blood No Growth after 24 hours
[2021-07-06 16:54] LABS: Glucose,Whole Blood 169 mg/dL (75-99)
[2021-07-06 20:10] LABS: Glucose,Whole Blood 174 mg/dL (75-99)
[2021-07-06] MEDS: hydrALAZINE HCL 50 MG TAB PO SCH (21:11)
[2021-07-06] MEDS: INSULIN DETEMIR (LEVEMIR) 100 UNIT/ML SYR SQ SCH (21:14)
--- NOTE | 2021-07-06 22:32 | PN ---
PROGRESS NOTE DATE OF SERVICE: 07/06/2021 REASON FOR FOLLOWUP: Left big toe diabetic foot infection with bacteremia. INTERVAL HISTORY: The patient is afebrile. The patient is currently breathing comfortably. Denies having any chest pain or shortness of breath or cough. No abdominal pain of pain to the left big toe area. PHYSICAL EXAMINATION: Blood pressure 146/87, pulse of 71, temperature 97.7. He is 95% on room air. General description is a middle-aged male lying in bed in no distress. Respiratory system: Unlabored breathing. Clear to auscultation anteriorly. Heart S1, S2. Regular rate and rhythm. Abdomen soft, no tenderness. Left big toe swelling and redness have decreased. No drainage. LABS: Hemoglobin is 12.8, white count 8.6, creatinine 0.67. DIAGNOSTIC IMPRESSION AND PLAN: Patient with left big toe diabetic foot infection with Streptococcus agalactiae bacteremia. Patient is covered with Unasyn; to continue while waiting for surgical debridement. Local wound care with dry Aquacel Silver dressing. Continue supportive care. MMODL / IJN: [id number] /
[2021-07-07 02:16] LABS: Glucose,Whole Blood 187 mg/dL (75-99)
[2021-07-07 04:10] LABS: Glucose,Whole Blood 164 mg/dL (75-99)
[2021-07-07 06:07] LABS: Glucose,Whole Blood 168 mg/dL (75-99)
[2021-07-07] MEDS: SODIUM CHLORIDE 0.9% 1,000 ML IV SCH ×3 (06:34→23:18)
[2021-07-07] MEDS: AMPICILLIN-SULBACTAM 3 GM in SODIUM CHLORIDE 0.9% 100 ML IVPB SCH ×4 (06:34→23:19)
[2021-07-07] MEDS: INSULIN ASPART (NovoLOG) 100 UNIT/ML VIAL SQ SCH ×8 (06:35→20:54)
[2021-07-07] MEDS: ATORVASTATIN 80 MG TAB PO SCH (08:38)
[2021-07-07] MEDS: ASPIRIN 81 MG PO SCH (08:38)
[2021-07-07] MEDS: hydrALAZINE HCL 50 MG TAB PO SCH ×2 (08:39→20:53)
[2021-07-07] MEDS: LOSARTAN 50 MG TAB PO SCH (08:39)
[2021-07-07] MEDS: carvediloL 12.5 MG TAB PO SCH ×2 (08:39→20:53)
[2021-07-07] MEDS: DULoxetine HCL 60 MG CAPSULE.DR PO SCH (08:39)
[2021-07-07] MEDS: ASCORBIC ACID 500 MG TAB PO SCH (08:39)
[2021-07-07] MEDS: dexAMETHasone 2 MG TAB PO SCH (08:39)
[2021-07-07] MEDS: FAMOTIDINE 20 MG TAB PO SCH (08:39)
[2021-07-07] MEDS: ZINC SULFATE 220 MG CAP PO SCH (08:39)
[2021-07-07] MEDS: CHOLECALCIFEROL 25 MCG (1000 IU) TABLET PO SCH (08:39)
[2021-07-07 11:43] LABS: Glucose,Whole Blood 216 mg/dL (75-99)
[2021-07-07 12:04] VITALS: BMI 30.9
[2021-07-07] MEDS ORDERED: LACTATED RINGERS 600 ML IV ONE (13:25)
[2021-07-07] MEDS ORDERED: METOPROLOL TARTRATE 5 MG/5 ML VIAL IVP ONE (13:25)
[2021-07-07] MEDS ORDERED: KETAMINE 10 MG/ML 20 ML VIAL ONE (13:25)
[2021-07-07] MEDS ORDERED: .fentaNYL (PF) 50 MCG/ML 2 ML AMP ONE (13:25)
[2021-07-07] MEDS ORDERED: MIDAZOLAM 2 MG/2 ML VIAL ONE (13:25)
[2021-07-07] MEDS ORDERED: BUPIVACAINE (PF) 0.5% 30 ML VIAL SQ ONE (13:40)
--- NOTE | 2021-07-07 13:55 | P.OP ---
Date of Procedure: 07/07/21 Description of Procedure: Preoperative diagnosis: Left great toe wound, previous osteomyelitis Postoperative diagnosis: Same Procedure: [Sharp excisional debridement left great toe to bone, 3.5 x 2.6 x 1.0 cm] Surgeon: Mansi Wright D.O. EBL: [5 mL] IV fluids: [See records] Urine output: [Not measured] Drains: [None] Complications: [None immediately apparent] Condition: [Stable to recovery] Operative indication and findings: [Torito is a 40-year-old male with a known left great toe wound that previously had been treated for osteomyelitis. That reportedly had resolved however he still has a wound and was recommended to undergo wound debridement. Risks and benefits were discussed. She understood and was willing to proceed.] Procedure in detail: [The patient was taken to the operative suite and placed in supine position. The left great toe was prepped and draped in usual sterile fashion. A preprocedure timeout was performed, all parties were in agreement. Using a scalpel, the devitalized portion of callus and overlying tissue was excised. The wound itself was found to tract medially and laterally. All the overlying tissue was excised and unroofed. This resulted in the wound as measured above. There was a pocket of purulent drainage towards the lateral portion this was cultured. The wound was then debrided with a curet and scissors to healthy appearing tissues. It was copiously irrigated and wet-to-dry dressing was placed. Patient tolerated procedure well. Patient will be given adequate attempts at wound care and healing with local wound care at this point. Defer any further antibiotics to infectious disease. We discussed that he may need a great toe amputation in the future if there is continued nonhealing
--- NOTE | 2021-07-07 14:01 | P.PN ---
Subjective Progress Note Date: 07/07/21 CHIEF COMPLAINT: Chest pain HISTORY OF PRESENT ILLNESS: This is a 40-year-old gentleman with coronary artery disease and prior revascularization percutaneously as well as hypertension and dyslipidemia who was admitted to the hospital with fever as well as nonhealing ulcer involving the left foot. We consulted to see the patient because of abnormal troponin. The patient has been doing well from the cardiovascular standpoint overview. He reports is no symptoms of chest pain or chest discomfort or shortness of breath or dizziness or lightheadedness. He has been maintaining normal sinus mechanism. Hemodynamically he is stable. He is on dual antiplatelet therapy along with high intensity statin. He is in process of having left foot mariah ridement procedure in the next few days. 07/07/2021 Patient remains on the cardiac stepdown unit. No complaints of chest pain or shortness of breath. Telemetry reveals sinus mechanism. Patient is on room air with oxygen saturations greater than 97%. He is afebrile. PHYSICAL EXAM: Thorough physical exam not completed secondary to limited evaluation/examination due to Covid19 ASSESSMENT: History of Covid 19, continues to test positive Fever Nonhealing ulcer of left heel Coronary artery disease with prior revascularization Evidence of myocardial injury without evidence of ischemia PLAN: Continue current cardiac medications Patient to undergo debridement of wound today with vascular surgery Stable from a cardiac standpoint Further recommendations pending patient course Nurse practitioner note has been reviewed by physician. Signing provider agrees with the documented findings, assessment, and plan of care. Objective - Vital Signs Vital signs: Vital Signs Temp 98.1 F 07/07/21 08:47 Pulse 70 07/07/21 08:47 Resp 18 07/07/21 08:47 BP 158/90 07/07/21 08:47 Pulse Ox 97 07/07/21 08:47 Intake & Output 07/06/21 07/07/21 07/07/21 18:59 06:59 18:59 Intake Total 1140 900 Output Total 800 600 605 Balance 340 -600 295 Weight 112.2 kg Intake: IV 100 Intake, IV Titration 900 800 Amount Ampicillin-Sulbactam 3 gm 100 In Sodium Chloride 0.9% 100 ml @ 200 mls/hr IVPB Q6HR [facility] Rx#:[id number] Sodium Chloride 0.9% 1, 800 800 000 ml @ 100 mls/hr IV . Q10H [facility]ZA Rx#:[id number] Oral 240 Output: Urine 800 600 600 Estimated Blood Loss 5 Other: Voiding Method Toilet Toilet Toilet Urinal Urinal Urinal # Voids 1 - Labs CBC & Chem 7: 07/06/21 06:00 07/06/21 06:00 Labs: Abnormal Lab Results - Last 24 Hours (Table) 07/06/21 07/06/21 07/06/21 Range/Units 06:00 16:51 20:09 POC Glucose (mg/dL) 169 H 174 H (75-99) mg/dL Hemoglobin A1c 13.5 H (4.0-6.0) % 07/06/21 07/07/21 07/07/21 Range/Units 23:55 04:09 06:06 POC Glucose (mg/dL) 187 H 164 H 168 H (75-99) mg/dL Hemoglobin A1c (4.0-6.0) % 07/07/21 Range/Units 11:42 POC Glucose (mg/dL) 216 H (75-99) mg/dL Hemoglobin A1c (4.0-6.0) % Microbiology - Last 24 Hours (Table) 07/05/21 11:13 Blood Culture - Preliminary Blood No Growth after 48 hours 07/04/21 08:30 Blood Culture - Preliminary Blood No Growth after 72 hours 07/03/21 18:20 Blood Culture Gram Stain - Final Blood Blood Culture - Final Strep agalactiae - (group b) 07/03/21 18:31 Blood Culture Gram Stain - Final Blood Blood Culture - Final Strep agalactiae - (group b)
[2021-07-07] MEDS: LABETALOL 5 MG/ML VIAL MDV IVP ONE ×2 (14:30→14:44)
--- NOTE | 2021-07-07 15:04 | P.PN ---
Subjective Progress Note Date: 07/07/21 HISTORY OF PRESENT ILLNESS This is a 40-year-old male patient of Dr. Anne and Dr. Abad with past medical history of anterior ST elevated myocardial infarction status post PCI of the proximal to mid LAD on 11/20/2020 and PCI to the mid RCA on 11/1701/17/2021, ischemic cardiomyopathy with ejection fraction of 3540 percent, chronic systolic heart failure, hypertension, diabetes mellitus type 2, obesity great toe ulcer. Patient's last hospitalization was in February 2021 at which time he was treated for left great toe cellulitis with osteomyelitis. Patient was seen by Dr. Louis patient was discharged on Invanz 1 g daily for 6 weeks. Patient stopped taking his medication and when asked, patient states he just forgot to take it for a week. He also states that he change the type of dressing that he uses on his toe and now toe is swollen red with drainage. His blood sugars at home were apparently in the 300s. He states he has been off work for the past 3 days. He denies any shortness of breath. He complains of nausea and fever and feeling "super sick." Patient also complains of chest pain, pressure type. Patient came into [facility] emergency center for evaluation. Temperature was 102.9, heart rate 109, blood pressure 101/71 and pulse ox 97% on room air. EKG was sinus tachycardia inverted T-wave in leads 2, 3, aVF. WBC 11.3, lymphocytes 0.6. Sodium 130, potassium 4.2, creatinine 0.63, blood sugar 352. Lactic acid 1.2. Liver function tests normal. Troponin 0.069, 0.045, 0.056. COVID-19 detected. Blood culture is showing strep galactorrhea group B. Left foot x-ray revealed no convincing evidence of osteomyelitis. No evidence of acute fracture. Skin defect of the medial aspect of the first digit. Chest x-ray reveals no acute cardiopulmonary disease. Echocardiogram reveals EF of 45-50% with mild concentric left ventricular hypertrophy, mild mitral regurgitation, mild tricuspid regurgitation. Patient has been admitted to the cardiac stepdown unit, consult in place with cardiology and infectious disease. 07/05: Patient denies having any chest pain, no fever or chills. has been seen by cardiology and acute coronary syndrome has been ruled out, heparin drip will be discontinued. Plan to continue antiplatelet and anti-ischemic medication and monitor the patient for additional 24 hours. Patient has been seen by vascular surgery with plan for debridement of the left great toe on Monday. Patient remains afebrile, heart rate 83, blood pressure 136/84, pulse ox 97% on room air. Blood sugars are running between 120 and 209. Levemir increased to 25 units at bedtime to start tonight. Sed rate 78, C-reactive protein 23. Blood culture is positive for strep agalactia. Patient is also seen by Dr. Louis. Patient will be transferred to the [facility] floor. 07/06 patient examined bedside. He denies any pain in his legs. Denies any fever or chills. Continues remains on Unasyn per infectious disease recommen dations. Telemetry suggest normal sinus rhythm. Plan for debridement of left for tomorrow. Vitals evaluated temp 98.1 pulse 69 respiratory rate 18. Blood pressure 150/104. Labs reviewed A.6 hemoglobin 12.8. Blood sugar are controlled on the current regimen. A1c is 13.5. Patient would benefit from diabetic education. Patient to stay on dual antiplatelets for debridement by vascular surgery. Norvasc 5 mg by mouth once. Hydralazine initiated at 50 mg by mouth twice a day 07/07: Patient is scheduled with Dr. Wright today for I&D. Patient is continued on Unasyn with local wound care with Aquacel Ag dressing. Radiology continues to follow with plan for continuing current cardiac medications. REVIEW OF SYSTEMS Constitutional: Reports fever, Reports chills, no night sweats. No weight change. No weakness, Reports fatigue Reports lethargy. No daytime sleepiness. EENT: No headache. No blurred vision or double vision, no loss of vision. No loss of Hearing, no ringing in the ears, no dizziness. No nasal drainage or congestion. No epistaxis. No sore throat. Lungs: No shortness of breath, cough, no sputum production. No wheezing. Cardiovascular: Reports chest pain, no lower extremity edema. No palpitations. No paroxysmal nocturnal dyspnea. No orthopnea. No lightheadedness or dizziness. No syncopal episodes. Abdominal: No abdominal pain. No nausea, vomiting. No diarrhea. No constipation. No bloody or tarry stools.. No loss of appetite. Genitourinary: No dysuria, increased frequency, urgency. No urinary retention. Musculoskeletal: No myalgias. No muscle weakness, no gait dysfunction, no frequent falls. No back pain. No neck pain. Integumentary: Left great toe wounds, no lesions. No rash or pruritus. No unusual bruising. No change in hair or nails. Neurologic: No aphasia. No facial droop. No change in mentation. No head injury. No headache. No paralysis. No paresthesia. Psychiatric: No depression. No anxiety. No mood swings. Endocrine: Reports abnormal blood sugars with hyperglycemia. No weight change. No excessive sweating or thirst. No cold intolerance. PHYSICAL EXAMINATION Gen: This is a 40-year-old male. He is resting in bed and appears to be in no acute distress. HEENT: Head is atraumatic, normocephalic. Pupils equal, round. Sclerae is anicteric. NECK: Supple. No JVD. No lymphadenopathy. No thyromegaly. LUNGS: Clear to auscultation. No wheezes or rhonchi. No intercostal retractions. HEART: Regular rate and rhythm. No murmur. ABDOMEN: Soft. Bowel sounds are present. No masses. No tenderness. EXTREMITIES: Left foot has wound to the plantar surface of the great toe and wound between the first and second toes, serous drainage. Unable to palpate dorsalis pedis on the left foot. 1+ dorsalis pedis on the right foot. NEUROLOGICAL: Patient is awake, alert and oriented x3. Cranial nerves 2 through 12 are grossly intact. ASSESSMENT AND PLAN 1. Sepsis secondary to Left great toe ulcer and streptococcal bacteremia suspected osteomyelitis. Patient changed to Unasyn, consult with infectious disease appreciated, consult with vascular surgery for debridement scheduled for today. 2. COVID-19 infection without pneumonia. Patient started on dexamethasone 6 mg daily, vitamin supplements, anticoagulation with heparin drip. 3. Abnormal troponins, Non-ST elevated myocardial infarction ruled out. Echocardiogram as above, cardiology consult appreciated, heparin drip discontinued, continue aspirin 81 mg daily, Lipitor 80 mg daily, Coreg 25 mg twice daily, Brilinta 90 mg twice daily. 4. Diabetes mellitus type 2 uncontrolled with hyperglycemia secondary to noncompliance. Patient started on insulin drip, obtained A1c. 5. Hypertension. Losartan 100 mg daily, and hydralazine resumed, continue to hold aldactone until blood pressure recovers from sepsis. Cardiology is following. 6. Ischemic cardiomyopathy with chronic systolic heart failure. Continue Coreg 25 mg twice daily, Lasix and Aldactone on hold. 7. Coronary artery disease with previous anterior ST elevated myocardial infarction status post PCI of the proximal to mid LAD on 11/20/2020 and PCI to the mid RCA on 11/1701/17/2021. Continue Brilinta 90 mg twice daily, Coreg, Lipitor 80 mg daily, aspirin 81 mg daily. 8. Hyperlipidemia. Continue atorvastatin 80 mg daily. 9. Generalized anxiety disorder. Continue Cymbalta 60 mg daily. 10. Gastroesophageal reflux disease and GI prophylaxis. Pepcid daily. 11. DVT prophylaxis. heparin drip. DISCHARGE PLAN Home. Patient most likely will require IV antibiotics at discharge. Impression and plan of care have been directed as dictated by the signing physician. Kaye Bach nurse practitioner acting as scribe for signing physician. Objective - Vital Signs Vital signs: Vital Signs Temp 98.1 F 07/07/21 08:47 Pulse 70 07/07/21 08:47 Resp 18 07/07/21 08:47 BP 158/90 07/07/21 08:47 Pulse Ox 97 07/07/21 08:47 Intake & Output 07/06/21 07/07/21 07/07/21 18:59 06:59 18:59 Intake Total 1140 800 Output Total 800 600 600 Balance 340 -600 200 Weight 112.2 kg Intake: Intake, IV Titration 900 800 Amount Ampicillin-Sulbactam 3 gm 100 In Sodium Chloride 0.9% 100 ml @ 200 mls/hr IVPB Q6HR [facility] Rx#:[id number] Sodium Chloride 0.9% 1, 800 800 000 ml @ 100 mls/hr IV . Q10H [facility] Rx#:[id number] Oral 240 Output: Urine 800 600 600 Other: Voiding Method Toilet Toilet Toilet Urinal Urinal Urinal # Voids 1 - Labs CBC & Chem 7: 07/06/21 06:00 07/06/21 06:00 Labs: Abnormal Lab Results - Last 24 Hours (Table) 07/06/21 07/06/21 07/06/21 Range/Units 06:00 16:51 20:09 POC Glucose (mg/dL) 169 H 174 H (75-99) mg/dL Hemoglobin A1c 13.5 H (4.0-6.0) % 07/06/21 07/07/21 07/07/21 Range/Units 23:55 04:09 06:06 POC Glucose (mg/dL) 187 H 164 H 168 H (75-99) mg/dL Hemoglobin A1c (4.0-6.0) % 07/07/21 Range/Units 11:42 POC Glucose (mg/dL) 216 H (75-99) mg/dL Hemoglobin A1c (4.0-6.0) % Microbiology - Last 24 Hours (Table) 07/04/21 08:30 Blood Culture - Preliminary Blood No Growth after 72 hours 07/03/21 18:20 Blood Culture Gram Stain - Final Blood Blood Culture - Final Strep agalactiae - (group b) 07/03/21 18:31 Blood Culture Gram Stain - Final Blood Blood Culture - Final Strep agalactiae - (group b) 07/05/21 11:13 Blood Culture - Preliminary Blood No Growth after 24 hours
[2021-07-07] MEDS: TICAGRELOR 90 MG TAB PO SCH (15:38)
[2021-07-07 16:19] LABS: Glucose,Whole Blood 249 mg/dL (75-99)
[2021-07-07 19:58] LABS: Glucose,Whole Blood 286 mg/dL (75-99)
[2021-07-07] MEDS: INSULIN DETEMIR (LEVEMIR) 100 UNIT/ML SYR SQ SCH (20:53)
--- NOTE | 2021-07-07 22:18 | PN ---
PROGRESS NOTE DATE OF SERVICE: 07/07/2021 REASON FOR FOLLOWUP: Left big toe diabetic foot infection with concern for underlying osteomyelitis. INTERVAL HISTORY: The patient was taken to the OR and is status post sharp excisional debridement of the left great toe wound to the bone. Patient tolerated the procedure. Pain is currently controlled. The patient denies having any chest pain or shortness of breath or cough. No abdominal pain or diarrhea. PHYSICAL EXAMINATION: Blood pressure 159/91 with a pulse of 81, temperature 98.1. He is 96% on room air. General description is a middle-aged male lying in bed in no distress. Respiratory system: Unlabored breathing. Clear to auscultation anteriorly. Heart S1, S2. Regular rate and rhythm. Abdomen soft, no tenderness. Left big toe is currently dressed. No obvious drainage on the dressing. LABS: No new labs been obtained today. Blood culture repeat has been negative so far. DIAGNOSTIC IMPRESSION AND PLAN: Patient with left big toe diabetic foot infection concerning for underlying osteomyelitis in this patient who did have Streptococcus agalactiae bacteremia. Patient is covered with Unasyn. Will be transitioned to the IV Rocephin and Flagyl on discharge. Plan is for at least 6 weeks of antibiotics. Continue supportive care. MMODL / IJN: [id number] /
[2021-07-08 06:18] LABS: Glucose,Whole Blood 205 mg/dL (75-99)
[2021-07-08] MEDS: AMPICILLIN-SULBACTAM 3 GM in SODIUM CHLORIDE 0.9% 100 ML IVPB SCH ×2 (06:34→12:24)
[2021-07-08] MEDS: INSULIN ASPART (NovoLOG) 100 UNIT/ML VIAL SQ SCH ×8 (06:59→21:27)
[2021-07-08] MEDS ORDERED: LIDOCAINE 1% INJ 10MG/ML (20 ML MDV) SQ ONE (09:48)
--- NOTE | 2021-07-08 10:24 | XR ---
EXAMINATION TYPE: XR chest 1V confirm line plcla DATE OF EXAM: 07/08/2021 COMPARISON: 07/03/2021 HISTORY: PICC line placement TECHNIQUE: Single frontal view of the chest is obtained. FINDINGS: There is no focal air space opacity, pleural effusion, or pneumothorax seen. The cardiac silhouette size is within normal limits. The osseous structures are intact. PICC line seen with the tip overlying the right chest somewhat coiled. PICC line to be repositioned. IMPRESSION: See above
--- NOTE | 2021-07-08 10:25 | XR ---
EXAMINATION TYPE: XR chest 1V confirm line [facility] DATE OF EXAM: 07/08/2021 COMPARISON: NONE HISTORY: PICC line TECHNIQUE: Single frontal view of the chest is obtained. FINDINGS: There is no focal air space opacity, pleural effusion, or pneumothorax seen. The cardiac silhouette size is within normal limits. The osseous structures are intact. PICC line seen with tip overlying the right cavoatrial junction IMPRESSION: PICC line in good position.
--- NOTE | 2021-07-08 10:38 | IR ---
PICC LINE PLACEMENT: HISTORY: Infection requiring long-term antibiotic therapy PROCEDURE: Ultrasound guidance of PICC line placement. BALANCE STAFF INSPECTOR: Dr. Rashid. COMPLICATIONS: None ANESTHESIA: 1. 1% Lidocaine locally. FINDINGS/TECHNIQUE: The procedure was explained to the patient. The risks, complications, benefits and alternatives were discussed and any questions were answered. Informed consent was obtained. The patient was placed supine on the fluoroscopic table and prepped and draped in the usual sterile [facility] ion. Utilizing a 21 gauge needle and sonographic guidance, access in the right basilic vein was ach ieved and there is placement of a 0.018 guidewire. The vein is patent. A 5-F. sheath was placed ove r the guidewire. The guidewire and dilator were removed and a 5-F. Double lumen PICC line was placed through the sheath with the chest x-ray confirming the tip at the level of the SVC. The sheath was removed, the catheter was flushed and sutured into position. The patient was stable throughout the p rocedure and remained stable upon discharge from the Department of Radiology. The vein puncture was patent under ultrasound. A wolf scale image was obtained to document patency of the vein punctured. All elements of the maximal barrier technique were utilized. IMPRESSION: 1. Successful PICC line placement under ultrasound performed bedside.
[2021-07-08] MEDS: ATORVASTATIN 80 MG TAB PO SCH (10:40)
[2021-07-08] MEDS: dexAMETHasone 2 MG TAB PO SCH (10:40)
[2021-07-08] MEDS: hydrALAZINE HCL 50 MG TAB PO SCH ×2 (10:40→21:26)
[2021-07-08] MEDS: ZINC SULFATE 220 MG CAP PO SCH (10:40)
[2021-07-08] MEDS: LOSARTAN 50 MG TAB PO SCH (10:40)
[2021-07-08] MEDS: carvediloL 12.5 MG TAB PO SCH ×2 (10:40→21:27)
[2021-07-08] MEDS: DULoxetine HCL 60 MG CAPSULE.DR PO SCH (10:40)
[2021-07-08] MEDS: CHOLECALCIFEROL 25 MCG (1000 IU) TABLET PO SCH (10:40)
[2021-07-08] MEDS: ASCORBIC ACID 500 MG TAB PO SCH (10:40)
[2021-07-08] MEDS: FAMOTIDINE 20 MG TAB PO SCH (10:41)
[2021-07-08] MEDS: ASPIRIN 81 MG PO SCH (10:41)
--- NOTE | 2021-07-08 11:48 | P.PN ---
Subjective Progress Note Date: 07/08/21 CHIEF COMPLAINT: Chest pain HISTORY OF PRESENT ILLNESS: This is a 40-year-old gentleman with coronary artery disease and prior revascularization percutaneously as well as hypertension and dyslipidemia who was admitted to the hospital with fever as well as nonhealing ulcer involving the left foot. We consulted to see the patient because of abnormal troponin. The patient has been doing well from the cardiovascular standpoint overview. He reports is no symptoms of chest pain or chest discomfort or shortness of breath or dizziness or lightheadedness. He has been maintaining normal sinus mechanism. Hemodynamically he is stable. He is on dual antiplatelet therapy along with high intensity statin. He is in process of having left foot mariah ridement procedure in the next few days. 07/07/2021 Patient remains on the cardiac stepdown unit. No complaints of chest pain or shortness of breath. Telemetry reveals sinus mechanism. Patient is on room air with oxygen saturations greater than 97%. He is afebrile. 07/08/2021 Patient remains on the cardiac step down unit. He underwent debridement of left great toe wound. Postop day #1. The patient denies any chest pain or pressure. He denies shortness of breath. Telemetry reveals sinus mechanism. Blood pressure 145/91. PHYSICAL EXAM: Thorough physical exam not completed secondary to limited evaluation/examination due to Covid19 ASSESSMENT: History of Covid 19, continues to test positive Fever Nonhealing ulcer of left heel Coronary artery disease with prior revascularization Evidence of myocardial injury without evidence of ischemia PLAN: Continue current cardiac medications Brilinta has been resumed per vascular surgery Stable from a cardiac standpoint We will sign off. Please reconsult if needed. Nurse practitioner note has been reviewed by physician. Signing provider agrees with the documented findings, assessment, and plan of care. Objective - Vital Signs Vital signs: Vital Signs Temp 98.1 F 07/08/21 09:00 Pulse 71 07/08/21 09:00 Resp 18 07/08/21 09:00 BP 145/91 07/08/21 09:00 Pulse Ox 96 07/08/21 09:00 Intake & Output 07/07/21 07/08/21 07/08/21 18:59 06:59 18:59 Intake Total 1020 Output Total 1955 1400 Balance -935 -1400 Weight 112.2 kg Intake: IV 100 Intake, IV Titration 800 Amount Sodium Chloride 0.9% 1, 800 000 ml @ 100 mls/hr IV . Q10H [facility] Rx#:[id number] Oral 120 Output: Urine 1950 1400 Estimated Blood Loss 5 Other: Voiding Method Toilet Urinal Urinal # Voids 1 1 - Labs CBC & Chem 7: 07/06/21 06:00 07/06/21 06:00 Labs: Abnormal Lab Results - Last 24 Hours (Table) 07/07/21 07/07/21 07/08/21 Range/Units 16:18 19:55 06:16 POC Glucose (mg/dL) 249 H 286 H 205 H (75-99) mg/dL Microbiology - Last 24 Hours (Table) 07/04/21 08:30 Blood Culture - Preliminary Blood No Growth after 96 hours 07/07/21 13:45 Wound Culture - Preliminary Toe - Left First 07/07/21 13:45 Anaerobic Culture - Preliminary Toe - Left First 07/05/21 11:13 Blood Culture - Preliminary Blood No Growth after 48 hours
[2021-07-08 12:03] LABS: Glucose,Whole Blood 234 mg/dL (75-99)
--- NOTE | 2021-07-08 12:34 | P.PN ---
Subjective Progress Note Date: 07/08/21 Patient is seen and examined sitting up in bed. He is postop day #1 for a left great toe debridement. He denies any pain. He denies any acute changes through the night. He denies any fevers or chills. He is been afebrile. No leukocytosis. He remains on Unasyn IV antibiotics per recommendations from infectious disease. Objective - Vital Signs Vital signs: Vital Signs Temp 98.4 F 07/08/21 01:48 Pulse 67 07/08/21 01:48 Resp 16 07/08/21 01:48 BP 134/85 07/08/21 01:48 Pulse Ox 97 07/08/21 01:48 Intake & Output 07/07/21 07/08/21 07/08/21 18:59 06:59 18:59 Intake Total 1020 Output Total 1955 1400 Balance -935 -1400 Weight 112.2 kg Intake: IV 100 Intake, IV Titration 800 Amount Sodium Chloride 0.9% 1, 800 000 ml @ 100 mls/hr IV . Q10H [facility] Rx#:[id number] Oral 120 Output: Urine 1950 1400 Estimated Blood Loss 5 Other: Voiding Method Toilet Urinal Urinal # Voids 1 1 - Exam General appearance: The patient is alert, oriented, in no acute distress. HET: Head is normocephalic and atraumatic. Pupils are equal and reactive. Oropharynx is clear without lesions. Extremities: Normal skin color and turgor. Left great toe debridement site to the plantar aspect of the great toe, with small amount of bleeding. Palpable dorsalis pedis and posterior tibialis pulses. Neurological: No focal deficits. Alert and oriented 3.. - Labs CBC & Chem 7: 07/06/21 06:00 07/06/21 06:00 Labs: Abnormal Lab Results - Last 24 Hours (Table) 07/07/21 07/07/21 07/07/21 Range/Units 11:42 16:18 19:55 POC Glucose (mg/dL) 216 H 249 H 286 H (75-99) mg/dL 07/08/21 Range/Units 06:16 POC Glucose (mg/dL) 205 H (75-99) mg/dL Microbiology - Last 24 Hours (Table) 07/07/21 13:45 Wound Culture - Preliminary Toe - Left First 07/07/21 13:45 Anaerobic Culture - Preliminary Toe - Left First 07/05/21 11:13 Blood Culture - Preliminary Blood No Growth after 48 hours 07/04/21 08:30 Blood Culture - Preliminary Blood No Growth after 72 hours Assessment and Plan Assessment: 1. Infected left great toe diabetic ulcer status post sharp excisional debridement 2. Diabetes mellitus, type II 3. History of coronary artery disease Plan: 1. Continue ileorectal to dry dressing changes 2. Await deep tissue culture result 3. Okay for consistent carbohydrate diet 4. Continue IV antibiotics per recommendations from infectious disease 5. Patient to continue outpatient wound care with Dr. Louis 6. May resume Vereniceilinta this evening Thank you for this consultation. The impression and plan of care has been dictated as directed. Dr. Wright I performed a history and examination of this patient, discussed the same with the dictator. I agree with the dictator's note ,documented as a scribe. Any additional findings or plans will be noted.
[2021-07-08 16:08] LABS: Glucose,Whole Blood 249 mg/dL (75-99)
--- NOTE | 2021-07-08 16:13 | P.PN ---
Subjective Progress Note Date: 07/08/21 HISTORY OF PRESENT ILLNESS This is a 40-year-old male patient of Dr. Anne and Dr. Abad with past medical history of anterior ST elevated myocardial infarction status post PCI of the proximal to mid LAD on 11/20/2020 and PCI to the mid RCA on 11/1701/17/2021, ischemic cardiomyopathy with ejection fraction of 3540 percent, chronic systolic heart failure, hypertension, diabetes mellitus type 2, obesity great toe ulcer. Patient's last hospitalization was in February 2021 at which time he was treated for left great toe cellulitis with osteomyelitis. Patient was seen by Dr. Louis patient was discharged on Invanz 1 g daily for 6 weeks. Patient stopped taking his medication and when asked, patient states he just forgot to take it for a week. He also states that he change the type of dressing that he uses on his toe and now toe is swollen red with drainage. His blood sugars at home were apparently in the 300s. He states he has been off work for the past 3 days. He denies any shortness of breath. He complains of nausea and fever and feeling "super sick." Patient also complains of chest pain, pressure type. Patient came into [facility] emergency center for evaluation. Temperature was 102.9, heart rate 109, blood pressure 101/71 and pulse ox 97% on room air. EKG was sinus tachycardia inverted T-wave in leads 2, 3, aVF. WBC 11.3, lymphocytes 0.6. Sodium 130, potassium 4.2, creatinine 0.63, blood sugar 352. Lactic acid 1.2. Liver function tests normal. Troponin 0.069, 0.045, 0.056. COVID-19 detected. Blood culture is showing strep galactorrhea group B. Left foot x-ray revealed no convincing evidence of osteomyelitis. No evidence of acute fracture. Skin defect of the medial aspect of the first digit. Chest x-ray reveals no acute cardiopulmonary disease. Echocardiogram reveals EF of 45-50% with mild concentric left ventricular hypertrophy, mild mitral regurgitation, mild tricuspid regurgitation. Patient has been admitted to the cardiac stepdown unit, consult in place with cardiology and infectious disease. 07/05: Patient denies having any chest pain, no fever or chills. has been seen by cardiology and acute coronary syndrome has been ruled out, heparin drip will be discontinued. Plan to continue antiplatelet and anti-ischemic medication and monitor the patient for additional 24 hours. Patient has been seen by vascular surgery with plan for debridement of the left great toe on Monday. Patient remains afebrile, heart rate 83, blood pressure 136/84, pulse ox 97% on room air. Blood sugars are running between 120 and 209. Levemir increased to 25 units at bedtime to start tonight. Sed rate 78, C-reactive protein 23. Blood culture is positive for strep agalactia. Patient is also seen by Dr. Louis. Patient will be transferred to the [facility] floor. 07/06 patient examined bedside. He denies any pain in his legs. Denies any fever or chills. Continues remains on Unasyn per infectious disease recommen dations. Telemetry suggest normal sinus rhythm. Plan for debridement of left for tomorrow. Vitals evaluated temp 98.1 pulse 69 respiratory rate 18. Blood pressure 150/104. Labs reviewed A.6 hemoglobin 12.8. Blood sugar are controlled on the current regimen. A1c is 13.5. Patient would benefit from diabetic education. Patient to stay on dual antiplatelets for debridement by vascular surgery. Norvasc 5 mg by mouth once. Hydralazine initiated at 50 mg by mouth twice a day 07/07: Patient is scheduled with Dr. Wright today for I&D. Patient is continued on Unasyn with local wound care with Aquacel Ag dressing. Radiology continues to follow with plan for continuing current cardiac medications. 07/08: She is seen on the cardiac stepdown unit he is still waiting for bed on the [facility] floor. PICC line has been ordered and placed in the right arm. He Dr. Andrade is recommended Rocephin and Flagyl for 6 weeks. forensic manager is waiting for prescription to get this ordered. Patient's plan is to return home. Chest x-ray confirmed PICC line in good position. Patient has been resumed on Brilinta. Cardiology has signed off. Anticipate discharge within 24 hours. REVIEW OF SYSTEMS Constitutional: Reports fever, Reports chills, no night sweats. No weight ch jeb. No weakness, Reports fatigue denies lethargy. No daytime sleepiness. EENT: No headache. No blurred vision or double vision, no loss of vision. No loss of Hearing, no ringing in the ears, no dizziness. No nasal drainage or congestion. No epistaxis. No sore throat. Lungs: No shortness of breath, cough, no sputum production. No wheezing. Cardiovascular: Reports chest pain, no lower extremity edema. No palpitations. No paroxysmal nocturnal dyspnea. No orthopnea. No lightheadedness or dizziness. No syncopal episodes. Abdominal: No abdominal pain. No nausea, vomiting. No diarrhea. No constipation. No bloody or tarry stools.. No loss of appetite. Genitourinary: No dysuria, increased frequency, urgency. No urinary retention. Musculoskeletal: No myalgias. No muscle weakness, no gait dysfunction, no frequent falls. No back pain. No neck pain. Integumentary: Left great toe wounds, no lesions. No rash or pruritus. Neurologic: No aphasia. No facial droop. No change in mentation. No head injury. No headache. No paralysis. No paresthesia. Psychiatric: No depression. No anxiety. No mood swings. Endocrine: Reports abnormal blood sugars with hyperglycemia. No weight change. No excessive sweating or thirst. No cold intolerance. PHYSICAL EXAMINATION Gen: This is a 40-year-old male. He is resting in bed and appears to be in no acute distress. HEENT: Head is atraumatic, normocephalic. Pupils equal, round. Sclerae is anicteric. NECK: Supple. No JVD. No lymphadenopathy. No thyromegaly. LUNGS: Clear to auscultation. No wheezes or rhonchi. No intercostal retractions. HEART: Regular rate and rhythm. No murmur. ABDOMEN: Soft. Bowel sounds are present. No masses. No tenderness. EXTREMITIES: Left foot has wound to the plantar surface of the great toe and wound between the first and second toes, dressing in place. Unable to palpate dorsalis pedis on the left foot. 1+ dorsalis pedis on the right foot. NEUROLOGICAL: Patient is awake, alert and oriented x3. Cranial nerves 2 through 12 are grossly intact. ASSESSMENT AND PLAN 1. Sepsis secondary to Left great toe ulcer and streptococcal bacteremia suspected osteomyelitis. Patient changed to track phone and Flagyl, consult with infectious disease appreciated, consult with vascular surgery status post debridement. 2. COVID-19 infection without pneumonia. Patient started on dexamethasone 6 mg daily, vitamin supplements. 3. Abnormal troponins, Non-ST elevated myocardial infarction ruled out. Echocardiogram as above, cardiology consult appreciated, heparin drip discontinued, continue aspirin 81 mg daily, Lipitor 80 mg daily, Coreg 25 mg twice daily, Brilinta 90 mg twice daily. 4. Diabetes mellitus type 2 uncontrolled with hyperglycemia secondary to noncompliance. Patient started on insulin drip, obtained A1c. 5. Hypertension. Losartan 100 mg daily, and hydralazine resumed, continue to hold aldactone until blood pressure recovers from sepsis. Cardiology is following. 6. Ischemic cardiomyopathy with chronic systolic heart failure. Continue Coreg 25 mg twice daily, Lasix and Aldactone on hold. 7. Coronary artery disease with previous anterior ST elevated myocardial infarction status post PCI of the proximal to mid LAD on 11/20/2020 and PCI to the mid RCA on 11/1701/17/2021. Continue Brilinta 90 mg twice daily, Coreg, Lipitor 80 mg daily, aspirin 81 mg daily. 8. Hyperlipidemia. Continue atorvastatin 80 mg daily. 9. Generalized anxiety disorder. Continue Cymbalta 60 mg daily. 10. Gastroesophageal reflux disease and GI prophylaxis. Pepcid daily. 11. DVT prophylaxis. heparin drip. DISCHARGE PLAN Home. Patient most likely will require IV antibiotics at discharge. Impression and plan of care have been directed as dictated by the signing physician. Kaye Bach nurse practitioner acting as scribe for signing physician. Objective - Vital Signs Vital signs: Vital Signs Temp 98.2 F 07/08/21 12:22 Pulse 75 07/08/21 12:22 Resp 16 07/08/21 12:22 BP 151/89 07/08/21 12:22 Pulse Ox 97 07/08/21 12:22 Intake & Output 07/07/21 07/08/21 07/08/21 18:59 06:59 18:59 Intake Total 1020 Output Total 195 1400 Balance -935 -1400 Weight 112.2 kg Intake: IV 100 Intake, IV Titration 800 Amount Sodium Chloride 0.9% 1, 800 000 ml @ 100 mls/hr IV . Q10H LIZA Rx#:[id number] Oral 120 Output: Urine 1950 1400 Estimated Blood Loss 5 Other: Voiding Method Toilet Urinal Urinal # Voids 1 1 - Labs CBC & Chem 7: 07/06/21 06:00 07/06/21 06:00 Labs: Abnormal Lab Results - Last 24 Hours (Table) 07/07/21 07/07/21 07/08/21 Range/Units 16:18 19:55 06:16 POC Glucose (mg/dL) 249 H 286 H 205 H (75-99) mg/dL 07/08/21 Range/Units 12:01 POC Glucose (mg/dL) 234 H (75-99) mg/dL Microbiology - Last 24 Hours (Table) 07/04/21 08:30 Blood Culture - Preliminary Blood No Growth after 96 hours 07/07/21 13:45 Wound Culture - Preliminary Toe - Left First 07/07/21 13:45 Anaerobic Culture - Preliminary Toe - Left First 07/05/21 11:13 Blood Culture - Preliminary Blood No Growth after 48 hours
--- NOTE | 2021-07-08 16:19 | P.DS ---
Providers Date of admission: 07/03/21 19:54 Expected date of discharge: 07/09/21 Attending physician: Juancho Parada Consults: 07/03/21 19:24 Consult Physician Urgent Consulting Provider: Jermaine Louis Consult Reason/Comments: left great toe wound Do you want consulting provider notified?: Yes 07/04/21 12:56 Consult Physician Routine Consulting Provider: Mansi Wright Consult Reason/Comments: debridement left great toe Do you want consulting provider notified?: Yes Primary care physician: Eriberto Anne MD Hospital Course: HISTORY OF PRESENT ILLNESS This is a 40-year-old male patient of Dr. Anne and Dr. Abad with past medical history of anterior ST elevated myocardial infarction status post PCI of the proximal to mid LAD on 11/20/2020 and PCI to the mid RCA on 11/1701/17/2021, ischemic cardiomyopathy with ejection fraction of 3540 percent, chronic systolic heart failure, hypertension, diabetes mellitus type 2, obesity great toe ulcer. Patient's last hospitalization was in February 2021 at which time he was treated for left great toe cellulitis with osteomyelitis. Patient was seen by Dr. Louis patient was discharged on Invanz 1 g daily for 6 weeks. Patient stopped taking his medication and when asked, patient states he just forgot to take it for a week. He also states that he change the type of dressing that he uses on his toe and now toe is swollen red with drainage. His blood sugars at home were apparently in the 300s. He states he has been off work for the past 3 days. He denies any shortness of breath. He complains of nausea and fever and feeling "super sick." Patient also complains of chest pain, pressure type. Patient came into [facility] emergency center for evaluation. Temperature was 102.9, heart rate 109, blood pressure 101/71 and pulse ox 97% on room air. EKG was sinus tachycardia inverted T-wave in leads 2, 3, aVF. WBC 11.3, lymphocytes 0.6. Sodium 130, potassium 4.2, creatinine 0.63, blood sugar 352. Lactic acid 1.2. Liver function tests normal. Troponin 0.069, 0.045, 0.056. COVID-19 detected. Blood culture is showing strep galactorrhea group B. Left foot x-ray revealed no convincing evidence of osteomyelitis. No evidence of acute fracture. Skin defect of the medial aspect of the first digit. Chest x-ray reveals no acute cardiopulmonary disease. Echocardiogram reveals EF of 45-50% with mild concentric left ventricular hypertrophy, mild mitral regurgitation, mild tricuspid regurgitation. Patient has been admitted to the cardiac stepdown unit, consult in place with cardiology and infectious disease. 07/05: Patient denies having any chest pain, no fever or chills. has been seen by cardiology and acute coronary syndrome has been ruled out, heparin drip will be discontinued. Plan to continue antiplatelet and anti-ischemic medication and monitor the patient for additional 24 hours. Patient has been seen by vascular surgery with plan for debridement of the left great toe on Monday. Patient remains afebrile, heart rate 83, blood pressure 136/84, pulse ox 97% on room air. Blood sugars are running between 120 and 209. Levemir increased to 25 u nits at bedtime to start tonight. Sed rate 78, C-reactive protein 23. Blood culture is positive for strep agalactia. Patient is also seen by Dr. Louis. Patient will be transferred to the [facility] floor. 07/06 patient examined bedside. He denies any pain in his legs. Denies any fever or chills. Continues remains on Unasyn per infectious disease recommendations. Telemetry suggest normal sinus rhythm. Plan for debridement of left for tomorrow. Vitals evaluated temp 98.1 pulse 69 respiratory rate 18. Blood pressure 150/104. Labs reviewed A.6 hemoglobin 12.8. Blood sugar are controlled on the current regimen. A1c is 13.5. Patient would benefit from diabetic education. Patient to stay on dual antiplatelets for debridement by vascular surgery. Norvasc 5 mg by mouth once. Hydralazine initiated at 50 mg by mouth twice a day 07/07: Patient is scheduled with Dr. Wright today for I&D. Patient is continued on Unasyn with local wound care with Aquacel Ag dressing. Radiology continues to follow with plan for continuing current cardiac medications. 07/08: Patient is seen on the cardiac stepdown unit he is still waiting for bed on the [facility] floor. PICC line has been ordered and placed in the right arm. He Dr. Andrade is recommended Rocephin and Flagyl for 6 weeks. manager ccu is waiting for prescription to get this ordered. Patient's plan is to return home. Chest x-ray confirmed PICC line in good position. Patient has been resumed on Brilinta. Cardiology has signed off. Anticipate discharge within 24 hours. 07/09: Patient will be given Rocephin dose today and then he can be discharged as soon as this is completed. No new complaints. Home care and IV antibiotic arrangements are being made by nurse case management. Patient has been instructed to follow-up in the office next week. DISCHARGE DIAGNOSES 1. Sepsis secondary to Left great toe ulcer and streptococcal bacteremia suspected osteomyelitis s/p debridement. 2. COVID-19 infection without pneumonia. 3. Abnormal troponins, Non-ST elevated myocardial infarction ruled out. 4. Diabetes mellitus type 2 uncontrolled with hyperglycemia secondary to noncompliance. 5. Hypertension. 6. Ischemic cardiomyopathy with chronic systolic heart failure. 7. Coronary artery disease with previous anterior ST elevated myocardial infarction status post PCI of the proximal to mid LAD on 11/20/2020 and PCI to the mid RCA on 11/1701/17/2021. 8. Hyperlipidemia. 9. Generalized anxiety disorder. 10. Gastroesophageal reflux disease DISCHARGE PLAN Home with [facility] and IV antibiotics. Greater than 35 minutes was utilized and coordinating patient's discharge. Impression and plan of care have been directed as dictated by the signing physician. Kaye Bach nurse practitioner acting as scribe for signing physician. Patient Condition at Discharge: Stable Plan - Discharge Summary Discharge Rx Participant: No New Discharge Prescriptions: New metroNIDAZOLE [Flagyl] 500 mg PO TID #90 tab cefTRIAXone [Rocephin] 2,000 mg IVP Q24HR #38 each Zinc Sulfate [Orazinc] 220 mg PO DAILY cap Ascorbic Acid [Vitamin C] 1,000 mg PO DAILY tab Cholecalciferol [Vitamin D3 (25 Mcg = 1000 Iu)] 50 mcg PO DAILY tablet Continue DULoxetine HCL [Cymbalta] 60 mg PO DAILY Albuterol Sulfate [Proair Hfa] 2 puff INHALATION RT-Q4H PRN PRN Reason: Shortness Of Breath INSULIN ASPART (NovoLOG) [NovoLOG (formulary)] 12 unit SQ AC-TID #1 vial Famotidine [Pepcid] 20 mg PO DAILY #30 tab Insulin Detemir (Levemir) [Levemir] 35 unit SQ DAILY #0 Furosemide [Lasix] 40 mg PO DAILY #60 tab Aspirin EC [Ecotrin Low Dose] 81 mg PO DAILY Ticagrelor [Brilinta] 90 mg PO BID #60 tab Losartan [Cozaar] 100 mg PO DAILY #30 tab Atorvastatin [Lipitor] 80 mg PO DAILY #30 tab Nitroglycerin Sl Tabs [Nitrostat] 0.4 mg SUBLINGUAL Q5M PRN #25 tab PRN Reason: Chest Pain metFORMIN HCL [Glucophage] 1,000 mg PO BID #0 glipiZIDE [Glucotrol] 10 mg PO DAILY hydrALAZINE HCL [Apresoline] 50 mg PO BID Carvedilol [Coreg] 25 mg PO BID #60 tablet Spironolactone [Aldactone] 50 mg PO DAILY Discharge Medication List Albuterol Sulfate [Proair Hfa] 2 puff INHALATION RT-Q4H PRN 11/20/20 [History] Aspirin EC [Ecotrin Low Dose] 81 mg PO DAILY 11/20/20 [History] DULoxetine HCL [Cymbalta] 60 mg PO DAILY 11/20/20 [History] Atorvastatin [Lipitor] 80 mg PO DAILY #30 tab 11/24/20 [Rx] Famotidine [Pepcid] 20 mg PO DAILY #30 tab 11/24/20 [Rx] INSULIN ASPART (NovoLOG) [NovoLOG (formulary)] 12 unit SQ AC-TID #1 vial 11/24/20 [Rx] Insulin Detemir (Levemir) [Levemir] 35 unit SQ DAILY #0 11/24/20 [Rx] Losartan [Cozaar] 100 mg PO DAILY #30 tab 11/24/20 [Rx] Nitroglycerin Sl Tabs [Nitrostat] 0.4 mg SUBLINGUAL Q5M PRN #25 tab 11/24/20 [Rx] Ticagrelor [Brilinta] 90 mg PO BID #60 tab 11/24/20 [Rx] metFORMIN HCL [Glucophage] 1,000 mg PO BID #0 11/24/20 [Rx] glipiZIDE [Glucotrol] 10 mg PO DAILY 02/15/21 [History] hydrALAZINE HCL [Apresoline] 50 mg PO BID 02/15/21 [History] Carvedilol [Coreg] 25 mg PO BID #60 tablet 02/16/21 [Rx] Spironolactone [Aldactone] 50 mg PO DAILY 03/03/21 [History] Furosemide [Lasix] 40 mg PO DAILY #60 tab 03/05/21 [Rx] Ascorbic Acid [Vitamin C] 1,000 mg PO DAILY tab 07/08/21 [Rx] Cholecalciferol [Vitamin D3 (25 Mcg = 1000 Iu)] 50 mcg PO DAILY tablet 07/08/21 [Rx] Zinc Sulfate [Orazinc] 220 mg PO DAILY cap 07/08/21 [Rx] cefTRIAXone [Rocephin] 2,000 mg IVP Q24HR #38 each 07/08/21 [Rx] metroNIDAZOLE [Flagyl] 500 mg PO TID #90 tab 07/08/21 [Rx] Follow up Appointment(s)/Referral(s): Eriberto Anne MD [Primary Care Provider] - 07/16/21 10:30 am Cheikh Abad DO [STAFF PHYSICIAN] - 07/20/21 3:00 pm Mansi Wright DO [STAFF PHYSICIAN] - As Needed [facility], [NON-STAFF] - ([facility] will call you to schedule the time for your in home nursing visits. First visit will be on 07/10/21.) [facility] [REFERRING] - ([facility] will deliver supplies to your home tonight between 6-9p.m. ) Discharge Disposition: HOME WITH HOME HEALTH SERVICES
[2021-07-08] MEDS: metroNIDAZOLE 500 MG TAB PO SCH ×2 (17:12→21:35)
[2021-07-08] MEDS: SODIUM CHLORIDE 0.9% 1,000 ML IV SCH (17:23)
[2021-07-08] MEDS: SPIRONOLACTONE 25 MG TAB PO SCH (17:35)
[2021-07-08 20:24] LABS: Glucose,Whole Blood 295 mg/dL (75-99)
[2021-07-08] MEDS: INSULIN DETEMIR (LEVEMIR) 100 UNIT/ML SYR SQ SCH (21:27)
[2021-07-08] MEDS: TICAGRELOR 90 MG TAB PO SCH (21:28)
[2021-07-09] MEDS: SODIUM CHLORIDE 0.9% 1,000 ML IV SCH ×4 (00:17→22:13)
--- NOTE | 2021-07-09 01:09 | PN ---
PROGRESS NOTE DATE OF SERVICE: 07/08/2021 REASON FOR FOLLOWUP: Left diabetic foot infection with osteomyelitis. INTERVAL HISTORY: The patient is afebrile, breathing comfortably. No chest pain, shortness of breath or cough. No abdominal pain or diarrhea. PHYSICAL EXAMINATION: Blood pressure 154/98 with a pulse of 73, temperature of 98.2. He is 97% on room air. General description is a middle-aged male lying in bed in no distress. Respiratory system: Unlabored breathing, clear to auscultation anteriorly. Heart S1, S2. Regular rate and rhythm. Abdomen soft, no tenderness. Left big toe is currently dressed. No obvious drainage on the dressing. DIAGNOSTIC IMPRESSION AND PLAN: Patient with left diabetic foot infection concerning for underlying osteomyelitis. Culture positive for Streptococcus agalactiae bacteremia. Antibiotic adjusted to Rocephin 2 grams daily and Flagyl 500 three times a day. Local wound care with Aquacel dressing and close outpatient followup. Continue supportive care. MMODL / IJN: [id number] /
[2021-07-09 07:27] LABS: Glucose,Whole Blood 205 mg/dL (75-99)
[2021-07-09] MEDS: INSULIN ASPART (NovoLOG) 100 UNIT/ML VIAL SQ SCH ×8 (07:55→21:05)
[2021-07-09] MEDS: ASCORBIC ACID 500 MG TAB PO SCH (07:56)
[2021-07-09] MEDS: CHOLECALCIFEROL 25 MCG (1000 IU) TABLET PO SCH (07:57)
[2021-07-09] MEDS: carvediloL 12.5 MG TAB PO SCH ×2 (07:57→21:04)
[2021-07-09] MEDS: LOSARTAN 50 MG TAB PO SCH (07:57)
[2021-07-09] MEDS: DULoxetine HCL 60 MG CAPSULE.DR PO SCH (07:57)
[2021-07-09] MEDS: SPIRONOLACTONE 25 MG TAB PO SCH (07:58)
[2021-07-09] MEDS: hydrALAZINE HCL 50 MG TAB PO SCH (07:58)
[2021-07-09] MEDS: FAMOTIDINE 20 MG TAB PO SCH (07:58)
[2021-07-09] MEDS: dexAMETHasone 2 MG TAB PO SCH (07:58)
[2021-07-09] MEDS: ASPIRIN 81 MG PO SCH (07:58)
[2021-07-09] MEDS: ZINC SULFATE 220 MG CAP PO SCH (07:59)
[2021-07-09] MEDS: ATORVASTATIN 80 MG TAB PO SCH (07:59)
[2021-07-09] MEDS: metroNIDAZOLE 500 MG TAB PO SCH ×3 (08:04→22:13)
[2021-07-09 11:35] LABS: Glucose,Whole Blood 262 mg/dL (75-99)
--- NOTE | 2021-07-09 12:24 | P.PN ---
Subjective Progress Note Date: 07/09/21 Patient is seen and examined sitting up in bed. He is postop day #2 for a left great toe debridement. He denies any pain. He denies any acute changes through the night. He denies any fevers or chills. He is afebrile. Josephine disease switched his antibiotics to ceftriaxone. Objective - Vital Signs Vital signs: Vital Signs Temp 97.9 F 07/09/21 06:00 Pulse 61 07/09/21 06:00 Resp 16 07/09/21 06:00 BP 154/99 07/09/21 06:00 Pulse Ox 97 07/09/21 06:00 Intake & Output 07/08/21 07/09/21 07/09/21 18:59 06:59 18:59 Intake Total 240 Balance 240 Intake: Oral 240 Other: Voiding Method Urinal # Voids 2 2 - Exam General appearance: The patient is alert, oriented, in no acute distress. HET: Head is normocephalic and atraumatic. Pupils are equal and reactive. Oropharynx is clear without lesions. Extremities: Normal skin color and turgor. Left great toe debridement site to the plantar aspect of the great toe, with no bleeding. Tissue is pink. Palpable dorsalis pedis and posterior tibialis pulses. Neurological: No focal deficits. Alert and oriented 3.. - Labs CBC & Chem 7: 07/06/21 06:00 07/06/21 06:00 Labs: Abnormal Lab Results - Last 24 Hours (Table) 07/08/21 07/08/21 07/08/21 Range/Units 12:01 16:06 20:20 POC Glucose (mg/dL) 234 H 249 H 295 H (75-99) mg/dL 07/09/21 Range/Units 07:26 POC Glucose (mg/dL) 205 H (75-99) mg/dL Microbiology - Last 24 Hours (Table) 07/07/21 13:45 Gram Stain - Preliminary Toe - Left First Wound Culture - Preliminary Strep agalactiae - (group b) Gram Neg Bacilli 07/05/21 11:13 Blood Culture - Preliminary Blood No Growth after 72 hours 07/04/21 08:30 Blood Culture - Preliminary Blood No Growth after 96 hours Assessment and Plan Assessment: 1. Infected left great toe diabetic ulcer status post sharp excisional debridement 2. Diabetes mellitus, type II 3. History of coronary artery disease Plan: 1. Continue wet to dry dressing changes to debridement site for now. Would appreciate Dr. Louis's input on outpatient/discharge wound care as he will follow him. 2. Await deep tissue culture result 3. Okay for consistent carbohydrate diet 4. Continue IV antibiotics per recommendations from infectious disease 5. Patient to continue outpatient wound care with Dr. Louis 6. May resume Eduardo Thank you for this consultation. The patient is cleared from vascular surgery for discharge. We will sign off at this time. The impression and plan of care has been dictated as directed. Dr. Wright I performed a history and examination of this patient, discussed the same with the dictator. I agree with the dictator's note ,documented as a scribe. Any additional findings or plans will be noted.
[2021-07-09] MEDS: TICAGRELOR 90 MG TAB PO SCH ×2 (15:10→21:04)
--- NOTE | 2021-07-09 15:16 | PN ---
PROGRESS NOTE DATE OF SERVICE: 07/09/2021. REASON FOR FOLLOW UP: Left big toe diabetic foot infection osteomyelitis. INTERVAL HISTORY: The patient is afebrile. The patient is currently breathing comfortably. Denies any chest pain, shortness of breath or cough. No abdominal pain. left big toe currently controlled. On examination, blood pressure 127/85, pulse 68, temperature 98.4, he is 98% on room air. General description is a middle aged male lying in bed in no distress. Respiratory system: Unlabored breathing, clear to auscultation anteriorly. Heart S1, S2 regular rate and rhythm. Abdomen soft, no tenderness. Left big toe currently wound looks clean. No swelling or redness LABORATORY DATA: No new labs have been obtained today. DIAGNOSTIC IMPRESSION AND PLAN: Patient with left big toe diabetic underlying osteomyelitis plan is for Flagyl, advised to follow up in the wound care center in one week and close outpatient follow up. MMODL / IJN: [id number] /
[2021-07-09 16:34] LABS: Glucose,Whole Blood 280 mg/dL (75-99)
--- NOTE | 2021-07-09 16:52 | P.PN ---
Subjective Progress Note Date: 07/09/21 HISTORY OF PRESENT ILLNESS This is a 40-year-old male patient of Dr. Anne and Dr. Abad with past medical history of anterior ST elevated myocardial infarction status post PCI of the proximal to mid LAD on 11/20/2020 and PCI to the mid RCA on 11/1701/17/2021, ischemic cardiomyopathy with ejection fraction of 3540 percent, chronic systolic heart failure, hypertension, diabetes mellitus type 2, obesity great toe ulcer. Patient's last hospitalization was in February 2021 at which time he was treated for left great toe cellulitis with osteomyelitis. Patient was seen by Dr. Louis patient was discharged on Invanz 1 g daily for 6 weeks. Patient stopped taking his medication and when asked, patient states he just forgot to take it for a week. He also states that he change the type of dressing that he uses on his toe and now toe is swollen red with drainage. His blood sugars at home were apparently in the 300s. He states he has been off work for the past 3 days. He denies any shortness of breath. He complains of nausea and fever and feeling "super sick." Patient also complains of chest pain, pressure type. Patient came into [facility] emergency [facility] for evaluation. Temperature was 102.9, heart rate 109, blood pressure 101/71 and pulse ox 97% on room air. EKG was sinus tachycardia inverted T-wave in leads 2, 3, aVF. WBC 11.3, lymphocytes 0.6. Sodium 130, potassium 4.2, creatinine 0.63, blood sugar 352. Lactic acid 1.2. Liver function tests normal. Troponin 0.069, 0.045, 0.056. COVID-19 detected. Blood culture is showing strep galactorrhea group B. Left foot x-ray revealed no convincing evidence of osteomyelitis. No evidence of acute fracture. Skin defect of the medial aspect of the first digit. Chest x-ray reveals no acute cardiopulmonary disease. Echocardiogram reveals EF of 45-50% with mild concentric left ventricular hypertrophy, mild mitral regurgitation, mild tricuspid regurgitation. Patient has been admitted to the cardiac stepdown unit, consult in place with cardiology and infectious disease. 07/05: Patient denies having any chest pain, no fever or chills. has been seen by cardiology and acute coronary syndrome has been ruled out, heparin drip will be discontinued. Plan to continue antiplatelet and anti-ischemic medication and monitor the patient for additional 24 hours. Patient has been seen by vascular surgery with plan for debridement of the left great toe on Monday. Patient remains afebrile, heart rate 83, blood pressure 136/84, pulse ox 97% on room air. Blood sugars are running between 120 and 209. Levemir increased to 25 units at bedtime to start tonight. Sed rate 78, C-reactive protein 23. Blood culture is positive for strep agalactia. Patient is also seen by Dr. Louis. Patient will be transferred to the [facility] floor. 07/06 patient examined bedside. He denies any pain in his legs. Denies any fever or chills. Continues remains on Unasyn per infectious disease recommen dations. Telemetry suggest normal sinus rhythm. Plan for debridement of left for tomorrow. Vitals evaluated temp 98.1 pulse 69 respiratory rate 18. Blood pressure 150/104. Labs reviewed A.6 hemoglobin 12.8. Blood sugar are controlled on the current regimen. A1c is 13.5. Patient would benefit from diabetic education. Patient to stay on dual antiplatelets for debridement by vascular surgery. Norvasc 5 mg by mouth once. Hydralazine initiated at 50 mg by mouth twice a day 07/07: Patient is scheduled with Dr. Wright today for I&D. Patient is continued on Unasyn with local wound care with Aquacel Ag dressing. Radiology continues to follow with plan for continuing current cardiac medications. 07/08: She is seen on the cardiac stepdown unit he is still waiting for bed on the [facility] floor. PICC line has been ordered and placed in the right arm. He Dr. Andrade is recommended Rocephin and Flagyl for 6 weeks. dry cleaning manager is waiting for prescription to get this ordered. Patient's plan is to return home. Chest x-ray confirmed PICC line in good position. Patient has been resumed on Brilinta. Cardiology has signed off. Anticipate discharge within 24 hours. 07/09: Has been prepared for discharge with IV antibiotics however we are waiting for insurance authorization for the IV antibiotics and do not expect this until Monday. No new complaints from the patient. He was anxious to be discharged home. His been afebrile, heart rate 73, blood pressure 145/81, pulse ox 95% on room air. Blood sugars are running between 205 and 280. Hydralazine increased to 75 mg twice daily and NovoLog scheduled will be increased to 10 units and dexamethasone discontinued. REVIEW OF SYSTEMS Constitutional: Reports fever, Reports chills, no night sweats. No weight change. No weakness, Reports fatigue denies lethargy. No daytime sleepiness. EENT: No headache. No blurred vision or double vision, no loss of vision. No loss of Hearing, no ringing in the ears, no dizziness. No nasal drainage or congestion. No epistaxis. No sore throat. Lungs: No shortness of breath, cough, no sputum production. No wheezing. Cardiovascular: Reports chest pain, no lower extremity edema. No palpitations. No paroxysmal nocturnal dyspnea. No orthopnea. No lightheadedness or dizziness. No syncopal episodes. Abdominal: No abdominal pain. No nausea, vomiting. No diarrhea. No constipation. No bloody or tarry stools.. No loss of appetite. Genitourinary: No dysuria, increased frequency, urgency. No urinary retention. Musculoskeletal: No myalgias. No muscle weakness, no gait dysfunction, no frequent falls. No back pain. No neck pain. Integumentary: Left great toe wounds, no lesions. No rash or pruritus. Neurologic: No aphasia. No facial droop. No change in mentation. No head injury. No headache. No paralysis. No paresthesia. Psychiatric: No depression. No anxiety. No mood swings. Endocrine: Reports elevated blood sugars with hyperglycemia. No weight change. No excessive sweating or thirst. No cold intolerance. PHYSICAL EXAMINATION Gen: This is a 40-year-old male. He is resting in bed and appears to be in no acute distress. HEENT: Head is atraumatic, normocephalic. Pupils equal, round. Sclerae is an icteric. NECK: Supple. No JVD. No lymphadenopathy. No thyromegaly. LUNGS: Clear to auscultation. No wheezes or rhonchi. No intercostal retractions. HEART: Regular rate and rhythm. No murmur. ABDOMEN: Soft. Bowel sounds are present. No masses. No tenderness. EXTREMITIES: Left foot has wound to the plantar surface of the great toe and wound between the first and second toes, dressing in place. Unable to palpate dorsalis pedis on the left foot. 1+ dorsalis pedis on the right foot. NEUROLOGICAL: Patient is awake, alert and oriented x3. Cranial nerves 2 through 12 are grossly intact. ASSESSMENT AND PLAN 1. Sepsis secondary to Left great toe ulcer and streptococcal bacteremia suspected osteomyelitis. Patient changed to ceftriaxone and Flagyl, consult with infectious disease appreciated, consult with vascular surgery status post debridement. Patient has PICC line in place. 2. COVID-19 infection without pneumonia. Discontinue dexamethasone 6 mg daily, continue vitamin supplements. 3. Abnormal troponins, Non-ST elevated myocardial infarction ruled out. Echocardiogram as above, cardiology consult appreciated, heparin drip discontinued, continue aspirin 81 mg daily, Lipitor 80 mg daily, Coreg 25 mg twice daily, Brilinta 90 mg twice daily. 4. Diabetes mellitus type 2 uncontrolled with hyperglycemia secondary to noncompliance. Patient started on insulin drip, obtained A1c. 5. Hypertension. Losartan 100 mg daily, and hydralazine increased to 75 mg twice daily, resumed on aldactone. Cardiology is following. 6. Ischemic cardiomyopathy with chronic systolic heart failure. Continue Coreg 25 mg twice daily, Lasix and Aldactone. 7. Coronary artery disease with previous anterior ST elevated myocardial infarction status post PCI of the proximal to mid LAD on 11/20/2020 and PCI to the mid RCA on 11/1701/17/2021. Continue Brilinta 90 mg twice daily, Coreg, Lipitor 80 mg daily, aspirin 81 mg daily. 8. Hyperlipidemia. Continue atorvastatin 80 mg daily. 9. Generalized anxiety disorder. Continue Cymbalta 60 mg daily. 10. Gastroesophageal reflux disease and GI prophylaxis. Pepcid daily. 11. DVT prophylaxis. heparin drip. DISCHARGE PLAN Home on Monday once IV antibiotics are arranged. Impression and plan of care have been directed as dictated by the signing physician. Kaye Bach nurse practitioner acting as scribe for signing physician. Objective - Vital Signs Vital signs: Vital Signs Temp 98.0 F 07/09/21 14:00 Pulse 73 07/09/21 14:00 Resp 18 07/09/21 14:00 BP 145/81 07/09/21 14:00 Pulse Ox 95 07/09/21 14:00 Intake & Output 07/08/21 07/09/21 07/09/21 18:59 06:59 18:59 Intake Total 240 Balance 240 Intake: Oral 240 Other: Voiding Method Urinal # Voids 2 2 - Labs CBC & Chem 7: 07/06/21 06:00 07/06/21 06:00 Labs: Abnormal Lab Results - Last 24 Hours (Table) 07/08/21 07/09/21 07/09/21 Range/Units 20:20 07:26 11:34 POC Glucose (mg/dL) 295 H 205 H 262 H (75-99) mg/dL 07/09/21 Range/Units 16:33 POC Glucose (mg/dL) 280 H (75-99) mg/dL Microbiology - Last 24 Hours (Table) 07/05/21 11:13 Blood Culture - Preliminary Blood No Growth after 96 hours 07/04/21 08:30 Blood Culture - Preliminary Blood No Growth after 120 hours 07/07/21 13:45 Gram Stain - Preliminary Toe - Left First Wound Culture - Preliminary Strep agalactiae - (group b) Gram Neg Bacilli
[2021-07-09 20:49] LABS: Glucose,Whole Blood 241 mg/dL (75-99)
[2021-07-09] MEDS: hydrALAZINE HCL 25 MG TAB PO SCH (21:03)
[2021-07-09] MEDS: INSULIN DETEMIR (LEVEMIR) 100 UNIT/ML SYR SQ SCH (21:04)
[2021-07-10] MEDS: CEFEPIME 2 GM in SODIUM CHLORIDE 0.9% 100 ML IVPB SCH ×3 (00:21→16:59)
[2021-07-10 01:44] LABS: Glucose,Whole Blood 210 mg/dL (75-99)
[2021-07-10 07:15] LABS: Glucose,Whole Blood 209 mg/dL (75-99)
[2021-07-10] MEDS: SPIRONOLACTONE 25 MG TAB PO SCH (08:56)
[2021-07-10] MEDS: hydrALAZINE HCL 25 MG TAB PO SCH ×2 (08:56→22:22)
[2021-07-10] MEDS: LOSARTAN 50 MG TAB PO SCH (08:56)
[2021-07-10] MEDS: FUROSEMIDE 40 MG TAB PO SCH (08:56)
[2021-07-10] MEDS: ATORVASTATIN 80 MG TAB PO SCH (08:56)
[2021-07-10] MEDS: carvediloL 12.5 MG TAB PO SCH ×2 (08:57→22:22)
[2021-07-10] MEDS: INSULIN ASPART (NovoLOG) 100 UNIT/ML VIAL SQ SCH ×8 (08:57→22:23)
[2021-07-10] MEDS: CHOLECALCIFEROL 25 MCG (1000 IU) TABLET PO SCH (08:57)
[2021-07-10] MEDS: ZINC SULFATE 220 MG CAP PO SCH (08:57)
[2021-07-10] MEDS: DULoxetine HCL 60 MG CAPSULE.DR PO SCH (08:57)
[2021-07-10] MEDS: ASPIRIN 81 MG PO SCH (08:57)
[2021-07-10] MEDS: metroNIDAZOLE 500 MG TAB PO SCH ×3 (08:57→22:22)
[2021-07-10] MEDS: FAMOTIDINE 20 MG TAB PO SCH (08:57)
[2021-07-10] MEDS: ASCORBIC ACID 500 MG TAB PO SCH (08:57)
[2021-07-10] MEDS: TICAGRELOR 90 MG TAB PO SCH ×2 (09:15→22:22)
--- NOTE | 2021-07-10 11:09 | P.PN ---
Subjective Progress Note Date: 07/10/21 HISTORY OF PRESENT ILLNESS This is a 40-year-old male patient of Dr. Anne and Dr. Abad with past medical history of anterior ST elevated myocardial infarction status post PCI of the proximal to mid LAD on 11/20/2020 and PCI to the mid RCA on 11/1701/17/2021, ischemic cardiomyopathy with ejection fraction of 3540 percent, chronic systolic heart failure, hypertension, diabetes mellitus type 2, obesity great toe ulcer. Patient's last hospitalization was in February 2021 at which time he was treated for left great toe cellulitis with osteomyelitis. Patient was seen by Dr. Louis patient was discharged on Invanz 1 g daily for 6 weeks. Patient stopped taking his medication and when asked, patient states he just forgot to take it for a week. He also states that he change the type of dressing that he uses on his toe and now toe is swollen red with drainage. His blood sugars at home were apparently in the 300s. He states he has been off work for the past 3 days. He denies any shortness of breath. He complains of nausea and fever and feeling "super sick." Patient also complains of chest pain, pressure type. Patient came into [facility] emergency center for evaluation. Temperature was 102.9, heart rate 109, blood pressure 101/71 and pulse ox 97% on room air. EKG was sinus tachycardia inverted T-wave in leads 2, 3, aVF. WBC 11.3, lymphocytes 0.6. Sodium 130, potassium 4.2, creatinine 0.63, blood sugar 352. Lactic acid 1.2. Liver function tests normal. Troponin 0.069, 0.045, 0.056. COVID-19 detected. Blood culture is showing strep galactorrhea group B. Left foot x-ray revealed no convincing evidence of osteomyelitis. No evidence of acute fracture. Skin defect of the medial aspect of the first digit. Chest x-ray reveals no acute cardiopulmonary disease. Echocardiogram reveals EF of 45-50% with mild concentric left ventricular hypertrophy, mild mitral regurgitation, mild tricuspid regurgitation. Patient has been admitted to the cardiac stepdown unit, consult in place with cardiology and infectious disease. 07/05: Patient denies having any chest pain, no fever or chills. has been seen by cardiology and acute coronary syndrome has been ruled out, heparin drip will be discontinued. Plan to continue antiplatelet and anti-ischemic medication and monitor the patient for additional 24 hours. Patient has been seen by vascular surgery with plan for debridement of the left great toe on Monday. Patient remains afebrile, heart rate 83, blood pressure 136/84, pulse ox 97% on room air. Blood sugars are running between 120 and 209. Levemir increased to 25 units at bedtime to start tonight. Sed rate 78, C-reactive protein 23. Blood culture is positive for strep agalactia. Patient is also seen by Dr. Louis. Patient will be transferred to the [facility] floor. 07/06 patient examined bedside. He denies any pain in his legs. Denies any fever or chills. Continues remains on Unasyn per infectious disease recommend ations. Telemetry suggest normal sinus rhythm. Plan for debridement of left for tomorrow. Vitals evaluated temp 98.1 pulse 69 respiratory rate 18. Blood pressure 150/104. Labs reviewed A.6 hemoglobin 12.8. Blood sugar are controlled on the current regimen. A1c is 13.5. Patient would benefit from diabetic education. Patient to stay on dual antiplatelets for debridement by vascular surgery. Norvasc 5 mg by mouth once. Hydralazine initiated at 50 mg by mouth twice a day 07/07: Patient is scheduled with Dr. Wright today for I&D. Patient is continued on Unasyn with local wound care with Aquacel Ag dressing. Radiology continues to follow with plan for continuing current cardiac medications. 07/08: She is seen on the cardiac stepdown unit he is still waiting for bed on the [facility] floor. PICC line has been ordered and placed in the right arm. He Dr. Andrade is recommended Rocephin and Flagyl for 6 [address]. sr. payroll manager is waiting for prescription to get this ordered. Patient's plan is to return home. Chest x-ray confirmed PICC line in good position. Patient has been resumed on Brilinta. Cardiology has signed off. Anticipate discharge within 24 hours. 07/09: Has been prepared for discharge with IV antibiotics however we are waiting for insurance authorization for the IV antibiotics and do not expect this until Monday. No new complaints from the patient. He was anxious to be discharged home. His been afebrile, heart rate 73, blood pressure 145/81, pulse ox 95% on room air. Blood sugars are running between 205 and 280. Hydralazine increased to 75 mg twice daily and NovoLog scheduled will be increased to 10 units and dexamethasone discontinued. 07/10: Patient was examined at the bedside on . He was prepared for discharge yesterday however did not have insurance authorization for IV antibiotics. We will await discharge until Monday for insurance approval. Patient has no complaints or concerns. He is in no acute distress. She remained afebrile, pulse rate 72, respirations 18, blood pressure 136/88, pulse ox 96% on room air REVIEW OF SYSTEMS Constitutional: Reports fever, Reports chills, no night sweats. No weight c hange. No weakness, Reports fatigue denies lethargy. No daytime sleepiness. EENT: No headache. No blurred vision or double vision, no loss of vision. No loss of Hearing, no ringing in the ears, no dizziness. No nasal drainage or congestion. No epistaxis. No sore throat. Lungs: No shortness of breath, cough, no sputum production. No wheezing. Cardiovascular: Reports chest pain, no lower extremity edema. No palpitations. No paroxysmal nocturnal dyspnea. No orthopnea. No lightheadedness or dizziness. No syncopal episodes. Abdominal: No abdominal pain. No nausea, vomiting. No diarrhea. No constipation. No bloody or tarry stools.. No loss of appetite. Genitourinary: No dysuria, increased frequency, urgency. No urinary retention. Musculoskeletal: No myalgias. No muscle weakness, no gait dysfunction, no frequent falls. No back pain. No neck pain. Integumentary: Left great toe wounds, no lesions. No rash or pruritus. Neurologic: No aphasia. No facial droop. No change in mentation. No head injury. No headache. No paralysis. No paresthesia. Psychiatric: No depression. No anxiety. No mood swings. Endocrine: Reports elevated blood sugars with hyperglycemia. No weight change. No excessive sweating or thirst. No cold intolerance. PHYSICAL EXAMINATION Gen: This is a 40-year-old male. He is resting in bed and appears to be in no acute distress. HEENT: Head is atraumatic, normocephalic. Pupils equal, round. Sclerae is anicte chantal. NECK: Supple. No JVD. No lymphadenopathy. No thyromegaly. LUNGS: Clear to auscultation. No wheezes or rhonchi. No intercostal retractions. HEART: Regular rate and rhythm. No murmur. ABDOMEN: Soft. Bowel sounds are present. No masses. No tenderness. EXTREMITIES: Left foot has wound to the plantar surface of the great toe and wound between the first and second toes, dressing in place. Unable to palpate dorsalis pedis on the left foot. 1+ dorsalis pedis on the right foot. NEUROLOGICAL: Patient is awake, alert and oriented x3. Cranial nerves 2 through 12 are grossly intact. ASSESSMENT AND PLAN 1. Sepsis secondary to Left great toe ulcer and streptococcal bacteremia suspected osteomyelitis. Patient changed to ceftriaxone and Flagyl, consult with infectious disease appreciated, consult with vascular surgery status post debridement. Patient has PICC line in place. 2. COVID-19 infection without pneumonia. Discontinue dexamethasone 6 mg daily, continue vitamin supplements. 3. Abnormal troponins, Non-ST elevated myocardial infarction ruled out. E chocardiogram as above, cardiology consult appreciated, heparin drip discontinued, continue aspirin 81 mg daily, Lipitor 80 mg daily, Coreg 25 mg twice daily, Brilinta 90 mg twice daily. 4. Diabetes mellitus type 2 uncontrolled with hyperglycemia secondary to noncompliance. Patient started on insulin drip, obtained A1c. 5. Hypertension. Losartan 100 mg daily, and hydralazine increased to 75 mg twice daily, resumed on aldactone. Cardiology is following. 6. Ischemic cardiomyopathy with chronic systolic heart failure. Continue Coreg 25 mg twice daily, Lasix and Aldactone. 7. Coronary artery disease with previous anterior ST elevated myocardial infarction status post PCI of the proximal to mid LAD on 11/20/2020 and PCI to the mid RCA on 11/1701/17/2021. Continue Brilinta 90 mg twice daily, Coreg, Lipitor 80 mg daily, aspirin 81 mg daily. 8. Hyperlipidemia. Continue atorvastatin 80 mg daily. 9. Generalized anxiety disorder. Continue Cymbalta 60 mg daily. 10. Gastroesophageal reflux disease and GI prophylaxis. Pepcid daily. 11. DVT prophylaxis. heparin drip. DISCHARGE PLAN Home on Monday once IV antibiotics are arranged. Impression and plan of care have been directed as dictated by the signing physician. Melissa Thomson nurse practitioner acting as scribe for signing physician. Objective - Vital Signs Vital signs: Vital Signs Temp 98.5 F 07/10/21 05:14 Pulse 72 07/10/21 05:14 Resp 18 07/10/21 05:14 BP 136/88 07/10/21 05:14 Pulse Ox 96 07/10/21 05:14 Intake & Output 07/09/21 07/10/21 07/10/21 18:59 06:59 18:59 Intake Total 100 Balance 100 Intake: Intake, IV Titration 100 Amount Cefepime 2 gm In Sodium 100 Chloride 0.9% 100 ml @ 25 mls/hr IVPB Q8HR [facility] Rx# :[id number] Other: # Voids 3 2 - Labs CBC & Chem 7: 07/06/21 06:00 07/06/21 06:00 Labs: Abnormal Lab Results - Last 24 Hours (Table) 07/09/21 07/09/21 07/09/21 Range/Units 11:34 16:33 20:47 POC Glucose (mg/dL) 262 H 280 H 241 H (75-99) mg/dL 07/10/21 07/10/21 Range/Units 01:37 07:14 POC Glucose (mg/dL) 210 H 209 H (75-99) mg/dL Microbiology - Last 24 Hours (Table) 07/04/21 08:30 Blood Culture - Final Blood No Growth after 144 hours 07/07/21 13:45 Gram Stain - Final Toe - Left First Wound Culture - Final Strep agalactiae - (group b) Escherichia coli 07/07/21 13:45 Anaerobic Culture - Preliminary Toe - Left First 07/05/21 11:13 Blood Culture - Preliminary Blood No Growth after 96 hours
[2021-07-10 12:16] LABS: Glucose,Whole Blood 224 mg/dL (75-99)
[2021-07-10 16:46] LABS: Glucose,Whole Blood 223 mg/dL (75-99)
[2021-07-10 20:43] LABS: Glucose,Whole Blood 177 mg/dL (75-99)
[2021-07-10] MEDS: SODIUM CHLORIDE 0.9% 1,000 ML IV SCH (22:02)
[2021-07-10] MEDS: INSULIN DETEMIR (LEVEMIR) 100 UNIT/ML SYR SQ SCH (22:23)
[2021-07-11] MEDS: CEFEPIME 2 GM in SODIUM CHLORIDE 0.9% 100 ML IVPB SCH ×3 (00:31→17:13)
--- NOTE | 2021-07-11 01:24 | PN ---
PROGRESS NOTE DATE OF SERVICE: 07/10/2021 REASON FOR FOLLOWUP: Left big toe diabetic foot infection with underlying osteomyelitis. INTERVAL HISTORY: Patient is afebrile. The patient is currently breathing comfortably. The patient denies having any chest pain, shortness of breath or cough. No nausea, vomiting. No abdominal pain. Pain to the left big toe. PHYSICAL EXAMINATION: Blood pressure 137/89 with pulse of 68, temperature 97.7. He is 97% on room air. General description is a middle-aged male lying in bed in no distress. Respiratory system: Unlabored breathing, clear to auscultation anteriorly. Heart S1, S2. Regular rate and rhythm. Abdomen soft, no tenderness. Left big toe is currently dressed. No obvious drainage on the dressing. LABS: No new labs have been obtained today. DIAGNOSTIC IMPRESSION AND PLAN: Patient with left big toe diabetic foot infection with concern for underlying osteomyelitis and did have Streptococcus agalactiae bacteremia. Local culture also positive for E coli which is resistant to Rocephin. Patient is currently on cefepime 2 grams q.8 hours to continue waiting for the outpatient IV antibiotic arrangement. Local care to continue with Aquacel Silver dressing. Keep the area off the pressure. MMODL / IJN: [id number] /
[2021-07-11] MEDS: SODIUM CHLORIDE 0.9% 1,000 ML IV SCH ×3 (03:59→22:06)
[2021-07-11 07:21] LABS: Glucose,Whole Blood 133 mg/dL (75-99)
[2021-07-11] MEDS: INSULIN ASPART (NovoLOG) 100 UNIT/ML VIAL SQ SCH ×8 (07:23→22:01)
[2021-07-11] MEDS: CHOLECALCIFEROL 25 MCG (1000 IU) TABLET PO SCH (07:36)
[2021-07-11] MEDS: ZINC SULFATE 220 MG CAP PO SCH (07:36)
[2021-07-11] MEDS: hydrALAZINE HCL 25 MG TAB PO SCH ×2 (07:36→22:04)
[2021-07-11] MEDS: SPIRONOLACTONE 25 MG TAB PO SCH (07:36)
[2021-07-11] MEDS: LOSARTAN 50 MG TAB PO SCH (07:36)
[2021-07-11] MEDS: ASPIRIN 81 MG PO SCH (07:36)
[2021-07-11] MEDS: metroNIDAZOLE 500 MG TAB PO SCH ×3 (07:36→22:03)
[2021-07-11] MEDS: FAMOTIDINE 20 MG TAB PO SCH (07:36)
[2021-07-11] MEDS: TICAGRELOR 90 MG TAB PO SCH ×2 (07:37→22:03)
[2021-07-11] MEDS: DULoxetine HCL 60 MG CAPSULE.DR PO SCH (07:37)
[2021-07-11] MEDS: ASCORBIC ACID 500 MG TAB PO SCH (07:37)
[2021-07-11] MEDS: carvediloL 12.5 MG TAB PO SCH ×2 (07:37→22:03)
[2021-07-11] MEDS: FUROSEMIDE 40 MG TAB PO SCH (07:37)
[2021-07-11] MEDS: ATORVASTATIN 80 MG TAB PO SCH (07:37)
--- NOTE | 2021-07-11 10:27 | P.PN ---
Subjective Progress Note Date: 07/11/21 HISTORY OF PRESENT ILLNESS This is a 40-year-old male patient of Dr. Anne and Dr. Abad with past medical history of anterior ST elevated myocardial infarction status post PCI of the proximal to mid LAD on 11/20/2020 and PCI to the mid RCA on 11/1701/17/2021, ischemic cardiomyopathy with ejection fraction of 3540 percent, chronic systolic heart failure, hypertension, diabetes mellitus type 2, obesity great toe ulcer. Patient's last hospitalization was in February 2021 at which time he was treated for left great toe cellulitis with osteomyelitis. Patient was seen by Dr. Louis patient was discharged on Invanz 1 g daily for 6 weeks. Patient stopped taking his medication and when asked, patient states he just forgot to take it for a week. He also states that he change the type of dressing that he uses on his toe and now toe is swollen red with drainage. His blood sugars at home were apparently in the 300s. He states he has been off work for the past 3 days. He denies any shortness of breath. He complains of nausea and fever and feeling "super sick." Patient also complains of chest pain, pressure type. Patient came into [facility] emergency center for evaluation. Temperature was 102.9, heart rate 109, blood pressure 101/71 and pulse ox 97% on room air. EKG was sinus tachycardia inverted T-wave in leads 2, 3, aVF. WBC 11.3, lymphocytes 0.6. Sodium 130, potassium 4.2, creatinine 0.63, blood sugar 352. Lactic acid 1.2. Liver function tests normal. Troponin 0.069, 0.045, 0.056. COVID-19 detected. Blood culture is showing strep galactorrhea group B. Left foot x-ray revealed no convincing evidence of osteomyelitis. No evidence of acute fracture. Skin defect of the medial aspect of the first digit. Chest x-ray reveals no acute cardiopulmonary disease. Echocardiogram reveals EF of 45-50% with mild concentric left ventricular hypertrophy, mild mitral regurgitation, mild tricuspid regurgitation. Patient has been admitted to the cardiac stepdown unit, consult in place with cardiology and infectious disease. 07/05: Patient denies having any chest pain, no fever or chills. has been seen by cardiology and acute coronary syndrome has been ruled out, heparin drip will be discontinued. Plan to continue antiplatelet and anti-ischemic medication and monitor the patient for additional 24 hours. Patient has been seen by vascular surgery with plan for debridement of the left great toe on Monday. Patient remains afebrile, heart rate 83, blood pressure 136/84, pulse ox 97% on room air. Blood sugars are running between 120 and 209. Levemir increased to 25 units at bedtime to start tonight. Sed rate 78, C-reactive protein 23. Blood culture is positive for strep agalactia. Patient is also seen by Dr. Louis. Patient will be transferred to the [facility] floor. 07/06 patient examined bedside. He denies any pain in his legs. Denies any fever or chills. Continues remains on Unasyn per infectious disease recommend ations. Telemetry suggest normal sinus rhythm. Plan for debridement of left for tomorrow. Vitals evaluated temp 98.1 pulse 69 respiratory rate 18. Blood pressure 150/104. Labs reviewed A.6 hemoglobin 12.8. Blood sugar are controlled on the current regimen. A1c is 13.5. Patient would benefit from diabetic education. Patient to stay on dual antiplatelets for debridement by vascular surgery. Norvasc 5 mg by mouth once. Hydralazine initiated at 50 mg by mouth twice a day 07/07: Patient is scheduled with Dr. Wright today for I&D. Patient is continued on Unasyn with local wound care with Aquacel Ag dressing. Radiology continues to follow with plan for continuing current cardiac medications. 07/08: She is seen on the cardiac stepdown unit he is still waiting for bed on the [facility] floor. PICC line has been ordered and placed in the right arm. He Dr. Andrade is recommended Rocephin and Flagyl for 6 weeks. clinical business manager is waiting for prescription to get this ordered. Patient's plan is to return home. Chest x-ray confirmed PICC line in good position. Patient has been resumed on Brilinta. Cardiology has signed off. Anticipate discharge within 24 hours. 07/09: Has been prepared for discharge with IV antibiotics however we are waiting for insurance authorization for the IV antibiotics and do not expect this until Monday. No new complaints from the patient. He was anxious to be discharged home. His been afebrile, heart rate 73, blood pressure 145/81, pulse ox 95% on room air. Blood sugars are running between 205 and 280. Hydralazine increased to 75 mg twice daily and NovoLog scheduled will be increased to 10 units and dexamethasone discontinued. 07/10: Patient was examined at the bedside on . He was prepared for discharge yesterday however did not have insurance authorization for IV antibiotics. We will await discharge until Monday for insurance approval. Patient has no complaints or concerns. He is in no acute distress. She remained afebrile, pulse rate 72, respirations 18, blood pressure 136/88, pulse ox 96% on room air 07/11: Examined at the bedside on S. He is resting comfortably in no acute distress. If insurance authorization for IV antibiotics does not go through he has completed apparently 9 days of antibiotic and a discussion was had that he will be transitioned to oral antibiotics. Due to his recent positive Covid test. Discussion about isolation for one more week given. Patient remained afebrile, heart rate 66 respirations 16 blood pressure 159/88, pulse oxing 96% on room air. REVIEW OF SYSTEMS Constitutional: Reports fever, Reports chills, no night sweats. No weight change. No weakness, Reports fatigue denies lethargy. No daytime sleepiness. EENT: No headache. No blurred vision or double vision, no loss of vision. No loss of Hearing, no ringing in the ears, no dizziness. No nasal drainage or congestion. No epistaxis. No sore throat. Lungs: No shortness of breath, cough, no sputum production. No wheezing. Cardiovascular: Reports chest pain, no lower extremity edema. No palpitations. No paroxysmal nocturnal dyspnea. No orthopnea. No lightheadedness or dizziness. No syncopal episodes. Abdominal: No abdominal pain. No nausea, vomiting. No diarrhea. No constipat ion. No bloody or tarry stools.. No loss of appetite. Genitourinary: No dysuria, increased frequency, urgency. No urinary retention. Musculoskeletal: No myalgias. No muscle weakness, no gait dysfunction, no frequent falls. No back pain. No neck pain. Integumentary: Left great toe wounds, no lesions. No rash or pruritus. Neurologic: No aphasia. No facial droop. No change in mentation. No head injury. No headache. No paralysis. No paresthesia. Psychiatric: No depression. No anxiety. No mood swings. Endocrine: Reports elevated blood sugars with hyperglycemia. No weight change. No excessive sweating or thirst. No cold intolerance. PHYSICAL EXAMINATION Gen: This is a 40-year-old male. He is resting in bed and appears to be in no acute distress. HEENT: Head is atraumatic, normocephalic. Pupils equal, round. Sclerae is anicteric. NECK: Supple. No JVD. No lymphadenopathy. No thyromegaly. LUNGS: Clear to auscultation. No wheezes or rhonchi. No intercostal retractions. HEART: Regular rate and rhythm. No murmur. ABDOMEN: Soft. Bowel sounds are present. No masses. No tenderness. EXTREMITIES: Left foot has wound to the plantar surface of the great toe and wound between the first and second toes, dressing in place. Unable to palpate dorsalis pedis on the left foot. 1+ dorsalis pedis on the right foot. NEUROLOGICAL: Patient is awake, alert and oriented x3. Cranial nerves 2 through 12 are grossly intact. ASSESSMENT AND PLAN 1. Sepsis secondary to Left great toe ulcer and streptococcal bacteremia suspected osteomyelitis. Patient changed to ceftriaxone and Flagyl, consult with infectious disease appreciated, consult with vascular surgery status post debridement. Patient has PICC line in place. 2. COVID-19 infection without pneumonia. Discontinue dexamethasone 6 mg daily, continue vitamin supplements. 3. Abnormal troponins, Non-ST elevated myocardial infarction ruled out. Echocardiogram as above, cardiology consult appreciated, heparin drip discontinued, continue aspirin 81 mg daily, Lipitor 80 mg daily, Coreg 25 mg twice daily, Brilinta 90 mg twice daily. 4. Diabetes mellitus type 2 uncontrolled with hyperglycemia secondary to noncompliance. Patient started on insulin drip, obtained A1c. 5. Hypertension. Losartan 100 mg daily, and hydralazine increased to 75 mg twice daily, resumed on aldactone. Cardiology is following. 6. Ischemic cardiomyopathy with chronic systolic heart failure. Continue Coreg 25 mg twice daily, Lasix and Aldactone. 7. Coronary artery disease with previous anterior ST elevated myocardial infarction status post PCI of the proximal to mid LAD on 11/20/2020 and PCI to the mid RCA on 11/1701/17/2021. Continue Brilinta 90 mg twice daily, Coreg, Lipitor 80 mg daily, aspirin 81 mg daily. 8. Hyperlipidemia. Continue atorvastatin 80 mg daily. 9. Generalized anxiety disorder. Continue Cymbalta 60 mg daily. 10. Gastroesophageal reflux disease and GI prophylaxis. Pepcid daily. 11. DVT prophylaxis. heparin drip. DISCHARGE PLAN Home on Monday once IV antibiotics are arranged. Impression and plan of care have been directed as dictated by the signing physician. Melissa Thomson nurse practitioner acting as scribe for signing physician. Objective - Vital Signs Vital signs: Vital Signs Temp 98.3 F 07/11/21 05:57 Pulse 66 07/11/21 05:57 Resp 16 07/11/21 05:57 BP 159/88 07/11/21 05:57 Pulse Ox 97 07/11/21 10:04 Intake & Output 07/10/21 07/11/21 07/11/21 18:59 06:59 18:59 Intake Total 1080 Balance 1080 Intake: Oral 1080 Other: Voiding Method Toilet Urinal # Voids 3 3 - Labs CBC & Chem 7: 07/06/21 06:00 07/06/21 06:00 Labs: Abnormal Lab Results - Last 24 Hours (Table) 07/10/21 07/10/21 07/10/21 Range/Units 12:13 16:45 20:41 POC Glucose (mg/dL) 224 H 223 H 177 H (75-99) mg/dL 07/11/21 Range/Units 07:20 POC Glucose (mg/dL) 133 H (75-99) mg/dL Microbiology - Last 24 Hours (Table) 07/05/21 11:13 Blood Culture - Preliminary Blood No Growth after 120 hours 07/04/21 08:30 Blood Culture - Final Blood No Growth after 144 hours
[2021-07-11 11:22] LABS: Glucose,Whole Blood 251 mg/dL (75-99)
[2021-07-11 16:33] LABS: Glucose,Whole Blood 273 mg/dL (75-99)
[2021-07-11 20:55] LABS: Glucose,Whole Blood 280 mg/dL (75-99)
[2021-07-11] MEDS: INSULIN DETEMIR (LEVEMIR) 100 UNIT/ML SYR SQ SCH (22:00)
--- NOTE | 2021-07-11 23:01 | PN ---
PROGRESS NOTE DATE OF SERVICE: 07/11/2021 REASON FOR FOLLOWUP: Left big toe diabetic foot infection with underlying acute osteomyelitis secondary to Streptococcus agalactiae and E coli. INTERVAL HISTORY: The patient is afebrile. The patient is breathing comfortably. The patient denies having any chest pain or shortness of breath or cough. No nausea, no vomiting. No abdominal pain or pain to the left big toe area. PHYSICAL EXAMINATION: Blood pressure 121/75, pulse of 80, temperature 98.3. He is 96% on room air. General description is an elderly male lying in bed in no distress. Respiratory system: Unlabored breathing. Clear to auscultation anteriorly. Heart S1, S2. Regular rate and rhythm. Abdomen soft, no tenderness. Left big toe is currently dressed. No obvious drainage on the dressing. LABS: No new labs have been obtained today. DIAGNOSTIC IMPRESSION AND PLAN: Patient with left big toe diabetic foot infection with underlying osteomyelitis with wound tracking down to the bone with streptococcal bacteremia. Local culture is also showing Rocephin-resistant E coli. The patient is currently covered with cefepime and Flagyl. Still waiting for the outpatient IV antibiotic arrangement. If not approved, need to transition to oral antibiotic on discharge and close outpatient followup. Continue with supportive care. MMODL / IJN: [id number] /
[2021-07-12] MEDS: CEFEPIME 2 GM in SODIUM CHLORIDE 0.9% 100 ML IVPB SCH ×3 (00:03→15:08)
[2021-07-12] MEDS: SODIUM CHLORIDE 0.9% 1,000 ML IV SCH ×2 (05:03→15:03)
[2021-07-12 07:19] LABS: Glucose,Whole Blood 152 mg/dL (75-99)
[2021-07-12] MEDS: ZINC SULFATE 220 MG CAP PO SCH (07:41)
[2021-07-12] MEDS: hydrALAZINE HCL 25 MG TAB PO SCH ×2 (07:41→21:37)
[2021-07-12] MEDS: ASPIRIN 81 MG PO SCH (07:43)
[2021-07-12] MEDS: DULoxetine HCL 60 MG CAPSULE.DR PO SCH (07:43)
[2021-07-12] MEDS: TICAGRELOR 90 MG TAB PO SCH ×2 (07:43→21:37)
[2021-07-12] MEDS: FUROSEMIDE 40 MG TAB PO SCH (07:43)
[2021-07-12] MEDS: SPIRONOLACTONE 25 MG TAB PO SCH (07:43)
[2021-07-12] MEDS: ASCORBIC ACID 500 MG TAB PO SCH (07:43)
[2021-07-12] MEDS: LOSARTAN 50 MG TAB PO SCH (07:43)
[2021-07-12] MEDS: INSULIN ASPART (NovoLOG) 100 UNIT/ML VIAL SQ SCH ×8 (07:44→21:36)
[2021-07-12] MEDS: metroNIDAZOLE 500 MG TAB PO SCH ×3 (07:44→21:37)
[2021-07-12] MEDS: CHOLECALCIFEROL 25 MCG (1000 IU) TABLET PO SCH (07:44)
[2021-07-12] MEDS: FAMOTIDINE 20 MG TAB PO SCH (07:44)
[2021-07-12] MEDS: carvediloL 12.5 MG TAB PO SCH ×2 (07:44→21:37)
[2021-07-12] MEDS: ATORVASTATIN 80 MG TAB PO SCH (07:45)
--- NOTE | 2021-07-12 10:38 | P.DS ---
Providers Date of admission: 07/03/21 19:54 Expected date of discharge: 07/12/21 Attending physician: Juancho Parada Consults: 07/03/21 19:24 Consult Physician Urgent Consulting Provider: Jermaine Louis Consult Reason/Comments: left great toe wound Do you want consulting provider notified?: Yes Primary care physician: Eriberto Anne MD Hospital Course: HISTORY OF PRESENT ILLNESS This is a 40-year-old male patient of Dr. Anne and Dr. Abad with past medical history of anterior ST elevated myocardial infarction status post PCI of the proximal to mid LAD on 11/20/2020 and PCI to the mid RCA on 11/1701/17/2021, ischemic cardiomyopathy with ejection fraction of 3540 percent, chronic systolic heart failure, hypertension, diabetes mellitus type 2, obesity great toe ulcer. Patient's last hospitalization was in February 2021 at which time he was treated for left great toe cellulitis with osteomyelitis. Patient was seen by Dr. Louis patient was discharged on Invanz 1 g daily for 6 weeks. Patient stopped taking his medication and when asked, patient states he just forgot to take it for a week. He also states that he change the type of dressing that he uses on his toe and now toe is swollen red with drainage. His blood sugars at home were apparently in the 300s. He states he has been off work for the past 3 days. He denies any shortness of breath. He complains of nausea and fever and feeling "super sick." Patient also complains of chest pain, pressure type. Patient came into [facility] emergency center for evaluation. Temperature was 102.9, heart rate 109, blood pressure 101/71 and pulse ox 97% on room air. EKG was sinus tachycardia inverted T-wave in leads 2, 3, aVF. WBC 11.3, lymphocytes 0.6. Sodium 130, potassium 4.2, creatinine 0.63, blood sugar 352. Lactic acid 1.2. Liver function tests normal. Troponin 0.069, 0.045, 0.056. COVID-19 detected. Blood culture is showing strep galactorrhea group B. Left foot x-ray revealed no convincing evidence of osteomyelitis. No evidence of acute fracture. Skin defect of the medial aspect of the first digit. Chest x-ray reveals no acute cardiopulmonary disease. Echocardiogram reveals EF of 45-50% with mild concentric left ventricular hypertrophy, mild mitral regurgitation, mild tricuspid regurgitation. Patient has been admitted to the cardiac stepdown unit, consult in place with cardiology and infectious disease. 07/05: Patient denies having any chest pain, no fever or chills. has been seen by cardiology and acute coronary syndrome has been ruled out, heparin drip will be discontinued. Plan to continue antiplatelet and anti-ischemic medication and monitor the patient for additional 24 hours. Patient has been seen by vascular surgery with plan for debridement of the left great toe on Monday. Patient remains afebrile, heart rate 83, blood pressure 136/84, pulse ox 97% on room air. Blood sugars are running between 120 and 209. Levemir increased to 25 units at bedtime to start tonight. Sed rate 78, C-reactive protein 23. Blood culture is positive for strep agalactia. Patient is also seen by Dr. Louis. Patient will be transferred to the [facility] floor. 07/06 patient examined bedside. He denies any pain in his legs. Denies any fever or chills. Continues remains on Unasyn per infectious disease recommendations. Telemetry suggest normal sinus rhythm. Plan for debridement of left for tomorrow. Vitals evaluated temp 98.1 pulse 69 respiratory rate 18. Blood pressure 150/104. Labs reviewed A.6 hemoglobin 12.8. Blood sugar are controlled on the current regimen. A1c is 13.5. Patient would benefit from diabetic education. Patient to stay on dual antiplatelets for debridement by vascular surgery. Norvasc 5 mg by mouth once. Hydralazine initiated at 50 mg by mouth twice a day 07/07: Patient is scheduled with Dr. Wright today for I&D. Patient is continued on Unasyn with local wound care with Aquacel Ag dressing. Radiology continues to follow with plan for continuing current cardiac medications. 07/08: Patient is seen on the cardiac stepdown unit he is still waiting for bed on the [facility] floor. PICC line has been ordered and placed in the right arm. He Dr. Andrade is recommended Rocephin and Flagyl for 6 weeks. selling manager is waiting for prescription to get this ordered. Patient's plan is to return home. Chest x-ray confirmed PICC line in good position. Patient has been resumed on Brilinta. Cardiology has signed off. Anticipate discharge within 24 hours. 07/09: Patient will be given Rocephin dose today and then he can be discharged as soon as this is completed. No new complaints. Home care and IV antibiotic arrangements are being made by case management social worker. Patient has been instructed to follow-up in the office next week. 07/10: Patient was examined at the bedside on . He was prepared for discharge yesterday however did not have insurance authorization for IV antibiotics. We will await discharge until Monday for insurance approval. Patient has no complaints or concerns. He is in no acute distress. She remained afebrile, pulse rate 72, respirations 18, blood pressure 136/88, pulse ox 96% on room air 07/11: Examined at the bedside on . He is resting comfortably in no acute distress. If insurance authorization for IV antibiotics does not go through he has completed apparently 9 days of antibiotic and a discussion was had that he will be transitioned to oral antibiotics. Due to his recent positive Covid test. Discussion about isolation for one more week given. Patient remained afebrile, heart rate 66 respirations 16 blood pressure 159/88, pulse oxing 96% on room air. 07/12: Patient denies any new complaints. No fever or chills. Blood sugars are running between 152 and 280. Blood pressure 125/81. Patient has been encouraged to take his medications as directed which he is agreeable. He will be meeting with staff in the office regarding medications. Home IV antibiotics have been arranged by case management social worker. Patient will be discharged today in stable condition. DISCHARGE DIAGNOSES 1. Sepsis secondary to Left great toe ulcer and streptococcal bacteremia suspected osteomyelitis s/p debridement. 2. COVID-19 infection without pneumonia. 3. Abnormal troponins, Non-ST elevated myocardial infarction ruled out. 4. Diabetes mellitus type 2 uncontrolled with hyperglycemia secondary to noncompliance. 5. Hypertension. 6. Ischemic cardiomyopathy with chronic systolic heart failure. 7. Coronary artery disease with previous anterior ST elevated myocardial infarction status post PCI of the proximal to mid LAD on 11/20/2020 and PCI to the mid RCA on 11/1701/17/2021. 8. Hyperlipidemia. 9. Generalized anxiety disorder. 10. Gastroesophageal reflux disease DISCHARGE PLAN Home with [facility] and IV antibiotics. Greater than 35 minutes was utilized and coordinating patient's discharge. Impression and plan of care have been directed as dictated by the signing physician. Kaye Bach nurse practitioner acting as scribe for signing physician. Patient Condition at Discharge: Good Plan - Discharge Summary Discharge Rx Participant: No New Discharge Prescriptions: New metroNIDAZOLE [Flagyl] 500 mg PO TID #90 tab cefTRIAXone [Rocephin] 2,000 mg IVP Q24HR #38 each Zinc Sulfate [Orazinc] 220 mg PO DAILY cap Ascorbic Acid [Vitamin C] 1,000 mg PO DAILY tab Cholecalciferol [Vitamin D3 (25 Mcg = 1000 Iu)] 50 mcg PO DAILY tablet Continue DULoxetine HCL [Cymbalta] 60 mg PO DAILY Albuterol Sulfate [Proair Hfa] 2 puff INHALATION RT-Q4H PRN PRN Reason: Shortness Of Breath INSULIN ASPART (NovoLOG) [NovoLOG (formulary)] 12 unit SQ AC-TID #1 vial Famotidine [Pepcid] 20 mg PO DAILY #30 tab Insulin Detemir (Levemir) [Levemir] 35 unit SQ DAILY #0 Furosemide [Lasix] 40 mg PO DAILY #60 tab Aspirin EC [Ecotrin Low Dose] 81 mg PO DAILY Ticagrelor [Brilinta] 90 mg PO BID #60 tab Losartan [Cozaar] 100 mg PO DAILY #30 tab Atorvastatin [Lipitor] 80 mg PO DAILY #30 tab Nitroglycerin Sl Tabs [Nitrostat] 0.4 mg SUBLINGUAL Q5M PRN #25 tab PRN Reason: Chest Pain metFORMIN HCL [Glucophage] 1,000 mg PO BID #0 glipiZIDE [Glucotrol] 10 mg PO DAILY hydrALAZINE HCL [Apresoline] 50 mg PO BID Carvedilol [Coreg] 25 mg PO BID #60 tablet Spironolactone [Aldactone] 50 mg PO DAILY Discharge Medication List Albuterol Sulfate [Proair Hfa] 2 puff INHALATION RT-Q4H PRN 11/20/20 [History] Aspirin EC [Ecotrin Low Dose] 81 mg PO DAILY 11/20/20 [History] DULoxetine HCL [Cymbalta] 60 mg PO DAILY 11/20/20 [History] Atorvastatin [Lipitor] 80 mg PO DAILY #30 tab 11/24/20 [Rx] Famotidine [Pepcid] 20 mg PO DAILY #30 tab 11/24/20 [Rx] INSULIN ASPART (NovoLOG) [NovoLOG (formulary)] 12 unit SQ AC-TID #1 vial 11/24/20 [Rx] Insulin Detemir (Levemir) [Levemir] 35 unit SQ DAILY #0 11/24/20 [Rx] Losartan [Cozaar] 100 mg PO DAILY #30 tab 11/24/20 [Rx] Nitroglycerin Sl Tabs [Nitrostat] 0.4 mg SUBLINGUAL Q5M PRN #25 tab 11/24/20 [Rx] Ticagrelor [Brilinta] 90 mg PO BID #60 tab 11/24/20 [Rx] metFORMIN HCL [Glucophage] 1,000 mg PO BID #0 11/24/20 [Rx] glipiZIDE [Glucotrol] 10 mg PO DAILY 02/15/21 [History] hydrALAZINE HCL [Apresoline] 50 mg PO BID 02/15/21 [History] Carvedilol [Coreg] 25 mg PO BID #60 tablet 02/16/21 [Rx] Spironolactone [Aldactone] 50 mg PO DAILY 03/03/21 [History] Furosemide [Lasix] 40 mg PO DAILY #60 tab 03/05/21 [Rx] Ascorbic Acid [Vitamin C] 1,000 mg PO DAILY tab 07/08/21 [Rx] Cholecalciferol [Vitamin D3 (25 Mcg = 1000 Iu)] 50 mcg PO DAILY tablet 07/08/21 [Rx] Zinc Sulfate [Orazinc] 220 mg PO DAILY cap 07/08/21 [Rx] cefTRIAXone [Rocephin] 2,000 mg IVP Q24HR #38 each 07/08/21 [Rx] metroNIDAZOLE [Flagyl] 500 mg PO TID #90 tab 07/08/21 [Rx] Follow up Appointment(s)/Referral(s): Eriberto Anne MD [Primary Care Provider] - 07/16/21 10:30 am Cheikh Abad DO [STAFF PHYSICIAN] - 07/20/21 3:00 pm Mansi Wright DO [STAFF PHYSICIAN] - As Needed [facility], [NON-STAFF] - ([facility] will call you to schedule the time for your in home nursing visits. First visit will be on 07/13/21.) Infusion Services,[facility] [REFERRING] - ([facility] will deliver supplies to your home on: 07/12/21 between 6-9pm.) Jermaine Louis MD [STAFF PHYSICIAN] - 07/19/21 1:45 pm () Patient Instructions/Handouts: Debridement (DC), Wound Healing and Your Diet (DC), Peripherally Inserted Central Catheters and Midline Catheters (DC) Activity/Diet/Wound Care/Special Instructions: - Opticell Silver dressing to be applied to Left great toe wound - Gauze - Wrap with kerlex, secure with tape - Dressing to be changed Q48hrs Discharge Disposition: HOME WITH HOME HEALTH SERVICES
[2021-07-12 11:32] LABS: Glucose,Whole Blood 147 mg/dL (75-99)
--- NOTE | 2021-07-12 14:16 | PN ---
PROGRESS NOTE DATE OF SERVICE: 07/12/2021 REASON FOR FOLLOWUP: Left big toe diabetic foot infection with underlying osteomyelitis. INTERVAL HISTORY: The patient is afebrile. The patient is breathing comfortably. The patient denies having any chest pain, shortness of breath or cough. No abdominal pain or any worsening pain to the left big toe area. PHYSICAL EXAMINATION: Blood pressure 125/80 with a pulse of 52, temperature of 98. He is 97% on room air. General description is a middle-aged male lying in bed in no distress. Respiratory system: Unlabored breathing. Clear to auscultation anteriorly. Heart S1, S2. Regular rate and rhythm. Abdomen soft, no tenderness. Left big toe is currently dressed. No obvious drainage on the dressing. LABS: No new labs have been obtained today. DIAGNOSTIC IMPRESSION AND PLAN: Patient with left big toe diabetic foot infection with underlying osteomyelitis, as the wound was tracking down to the bone. Culture with Streptococcus agalactiae and E coli. Plan is for cefepime 2 grams q. hours along with oral Flagyl for another 4 weeks and close outpatient followup. MMODL / IJN: [id number] /
[2021-07-12 16:57] LABS: Glucose,Whole Blood 230 mg/dL (75-99)
[2021-07-12 20:48] LABS: Glucose,Whole Blood 245 mg/dL (75-99)
[2021-07-12] MEDS: INSULIN DETEMIR (LEVEMIR) 100 UNIT/ML SYR SQ SCH (21:36)
[2021-07-13] MEDS: CEFEPIME 2 GM in SODIUM CHLORIDE 0.9% 100 ML IVPB SCH ×2 (00:09→07:38)
[2021-07-13] MEDS: SODIUM CHLORIDE 0.9% 1,000 ML IV SCH (03:13)
[2021-07-13 07:08] LABS: Glucose,Whole Blood 145 mg/dL (75-99)
[2021-07-13] MEDS: hydrALAZINE HCL 25 MG TAB PO SCH (07:35)
[2021-07-13] MEDS: carvediloL 12.5 MG TAB PO SCH (07:35)
[2021-07-13] MEDS: DULoxetine HCL 60 MG CAPSULE.DR PO SCH (07:36)
[2021-07-13] MEDS: CHOLECALCIFEROL 25 MCG (1000 IU) TABLET PO SCH (07:36)
[2021-07-13] MEDS: ATORVASTATIN 80 MG TAB PO SCH (07:36)
[2021-07-13] MEDS: ZINC SULFATE 220 MG CAP PO SCH (07:36)
[2021-07-13] MEDS: LOSARTAN 50 MG TAB PO SCH (07:36)
[2021-07-13] MEDS: SPIRONOLACTONE 25 MG TAB PO SCH (07:36)
[2021-07-13] MEDS: FAMOTIDINE 20 MG TAB PO SCH (07:36)
[2021-07-13] MEDS: FUROSEMIDE 40 MG TAB PO SCH (07:37)
[2021-07-13] MEDS: ASPIRIN 81 MG PO SCH (07:37)
[2021-07-13] MEDS: INSULIN ASPART (NovoLOG) 100 UNIT/ML VIAL SQ SCH ×2 (07:37)
[2021-07-13] MEDS: metroNIDAZOLE 500 MG TAB PO SCH (07:37)
[2021-07-13] MEDS: ASCORBIC ACID 500 MG TAB PO SCH (07:38)
[2021-07-13] MEDS: TICAGRELOR 90 MG TAB PO SCH (10:05)
[2021-07-13 10:20] VITALS: BP 129/83; PULSE 76; RESP 16; TEMP 98.6
[2021-07-13 11:37] LABS: Glucose,Whole Blood 155 mg/dL (75-99)
--- NOTE | 2021-07-13 13:10 | PN ---
PROGRESS NOTE DATE OF SERVICE: 07/13/2021 REASON FOR FOLLOWUP: Left big toe diabetic foot infection, concerning for underlying osteomyelitis. INTERVAL HISTORY: The patient is afebrile. The patient is breathing comfortably. The patient denies having any chest pain, shortness of breath or cough. No abdominal pain or any worsening pain to the left big toe area. PHYSICAL EXAMINATION: Blood pressure 129/83 with a pulse of 76, temperature 98.6. He is 96% on room air. General description is a middle-aged male lying in bed in no distress. Respiratory system: Unlabored breathing. Clear to auscultation anteriorly. Heart S1, S2. Regular rate and rhythm. Abdomen soft, no tenderness. Left big toe is currently dressed. No obvious drainage on the dressing. LABS: No new labs have been obtained today. DIAGNOSTIC IMPRESSION AND PLAN: Patient with left big toe diabetic foot infection with wound tracking all the way down to the bone, concerning for osteomyelitis. He did have Streptococcus agalactiae bacteremia. Local culture positive for Streptococcus agalactiae and E coli that was resistant to Rocephin antibiotic and cefepime. Insurance has refused to cover for outpatient IV antibiotic coverage. He will be switched over to oral Cipro and Flagyl. Local wound care with dry Aquacel Silver dressing and close outpatient followup. Continue with supportive care. MMODL / IJN: [id number] /
== END 2021-07-13 12:20 | disposition home health service (06) | DRG 853 ==
LOC: EC 15:53 → 3SCARD 19:54 → 4SSUR 07-08 15:39
PROVIDERS: ADMIT Internal Medicine Geriatric Medicine; ATTEND Internal Medicine Geriatric Medicine
PROC: 8E0ZXY6 Isolation (ICD-10-PCS; 2021-07-07)
PROC: 0QBR0ZZ Excision of Left Toe Phalanx, Open Approach (ICD-10-PCS; principal; 2021-07-07 12:30)
PROC: 02HV33Z Insertion of Infusion Device into Superior Vena Cava, Percutaneous Approach (ICD-10-PCS; 2021-07-08)
DX: A40.9 Streptococcal sepsis, unspecified (principal); U07.1 COVID-19; I50.22 Chronic systolic (congestive) heart failure; L97.429 Non-pressure chronic ulcer of left heel and midfoot with unspecified severity; M86.172 Other acute osteomyelitis, left ankle and foot; Z16.19 Resistance to other specified beta lactam antibiotics; E11.621 Type 2 diabetes mellitus with foot ulcer; E11.69 Type 2 diabetes mellitus with other specified complication; E11.40 Type 2 diabetes mellitus with diabetic neuropathy, unspecified; E11.628 Type 2 diabetes mellitus with other skin complications; E11.65 Type 2 diabetes mellitus with hyperglycemia; E78.5 Hyperlipidemia, unspecified; F41.1 Generalized anxiety disorder; I25.10 Atherosclerotic heart disease of native coronary artery without angina pectoris; I25.2 Old myocardial infarction; I25.5 Ischemic cardiomyopathy; I11.0 Hypertensive heart disease with heart failure; K21.9 Gastro-esophageal reflux disease without esophagitis; L08.9 Local infection of the skin and subcutaneous tissue, unspecified; L97.529 Non-pressure chronic ulcer of other part of left foot with unspecified severity; Z78.9 Other specified health status; Z79.02 Long term (current) use of antithrombotics/antiplatelets; Z79.2 Long term (current) use of antibiotics; Z79.4 Long term (current) use of insulin; Z79.82 Long term (current) use of aspirin; Z79.84 Long term (current) use of oral hypoglycemic drugs; Z79.899 Other long term (current) drug therapy; Z82.49 Family history of ischemic heart disease and other diseases of the circulatory system; Z83.3 Family history of diabetes mellitus; Z91.14 Patient's other noncompliance with medication regimen; Z91.19 Patient's noncompliance with other medical treatment and regimen; Z95.5 Presence of coronary angioplasty implant and graft; R77.8 Other specified abnormalities of plasma proteins; I34.0 Nonrheumatic mitral (valve) insufficiency
CPT/HCPCS: 36415; 36573; 71046; 80048; 80053; 83036; 83605; 84484; 85025; 85027; 85610; 85652; 85730; 86140; 87040; 87070; 87075; 87077; 87186; 87205; 87635; 93005; 93306; 96374; 96375; 99285

== ENCOUNTER 2022-10-11 13:26 | Emergency (ER) | payer BC, OTHER ==
[2022-10-11 13:42] VITALS: TEMP 97.5
--- NOTE | 2022-10-11 14:26 | ED ---
Headache HPI - General Source: patient, RN notes reviewed Mode of arrival: wheelchair Limitations: no limitations <Tico Valencia - Last Filed: 10/11/22 14:25> <Collette Ojeda - Last Filed: 10/18/22 22:03> - General Chief Complaint: Headache Stated Complaint: Dizzy Time Seen by Provider: 10/11/22 14:25 - History of Present Illness Initial Comments: 41-year-old male presents emergency Department for evaluation of confusion, headache. Patient states he did fall several days ago but states he does not feel this is related to his fall is. He states it's at work he states he had increase in left-sided headache, visual disturbance, dizzy. He states he overall does not feel well he at times feels states not sure what he is doing reasonably wear that he is confused. (Tico Valencia) Patient is a 41-year-old male with past history of coronary artery disease, diabetes mellitus, hypertension, hyperlipidemia who presents to the emergency department reporting a headache and central visual disturbance. He reports that he had a fall 1 week ago on ice. Hit his head on his truck. He did not lose consciousness. He did not have any headaches or after the injury. He reports that he woke up today with an extremely terrible headache. He does not take anything for the pain. 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 Feels like he has difficulty getting his words out. Patient does have some vomiting upon arrival. No weakness in his extremities. He denies any sick contacts. D oes admit to some diarrhea. Patient found to be extremely super hypertensive upon arrival. He does have a history of hypertension states he has not been taking his medications as directed. He is recently moving and was unsure where his medications were for a couple of days. He denies any fevers. No history of stroke. No other alleviating, precipitating or modifying factors (Collette Ojeda) - Related Data Home Medications Medication Instructions Recorded Confirmed Atorvastatin [Lipitor] 80 mg PO DIRECTED 10/12/22 10/12/22 Escitalopram [Lexapro] 10 mg PO DIRECTED 10/12/22 10/12/22 Furosemide [Lasix] 40 mg PO DIRECTED 10/12/22 10/12/22 Insulin Aspart [NovoLOG Flexpen] 8 units SQ AC-TID 10/12/22 10/12/22 Insulin Detemir [Levemir Flexpen] 6 units SQ BID 10/12/22 10/12/22 Losartan [Cozaar] 100 mg PO DIRECTED 10/12/22 10/12/22 Pantoprazole [Protonix] 40 mg PO DIRECTED 10/12/22 10/12/22 Ticagrelor [Brilinta] 90 mg PO DIRECTED 10/12/22 10/12/22 amLODIPine [Norvasc] 5 mg PO DIRECTED 10/12/22 10/12/22 carvediloL [Coreg] 25 mg PO DIRECTED 10/12/22 10/12/22 glipiZIDE XL [Glucotrol XL] 10 mg PO DIRECTED 10/12/22 10/12/22 metFORMIN HCL [Glucophage] 1,000 mg PO DIRECTED 10/12/22 10/12/22 Allergies Allergy/AdvReac Type Severity Reaction Status Date / Time No Known Allergies Allergy Verified 10/12/22 10:15 Review of Systems ROS Other: All systems not noted in ROS Statement are negative. <Tico Valencia - Last Filed: 10/11/22 14:25> ROS Other: All systems not noted in ROS Statement are negative. <Collette Ojeda - Last Filed: 10/18/22 22:03> ROS Statement: Those systems with pertinent positive or pertinent negative responses have been documented in the HPI. Past Medical History Past Medical History: Diabetes Mellitus, Hyperlipidemia, Hypertension Additional Past Medical History / Comment(s): neuropathy Last Myocardial Infarction Date:: 11/20/2020 History of Any Multi-Drug Resistant Organisms: ESBL Date of last positivie culture/infection: 03/03/21 E. coli ESBL MDRO Source:: Left Foot Past Surgical History: Back Surgery, Hernia Repair Additional Past Surgical History / Comment(s): 4 cardiac stents 11/20/2020, 1 cardiac stent 11/23/2020 Past Anesthesia/Blood Transfusion Reactions: No Reported Reaction Past Psychological History: Depression Smoking Status: Never smoker Past Alcohol Use History: None Reported Past Drug Use History: None Reported - Past Family History Mother Family Medical History: Diabetes Mellitus Father Family Medical History: Congestive Heart Failure (CHF), Coronary Artery Disease (CAD), Diabetes Mellitus, Hypertension, Myocardial Infarction ([place]) Additional Family Medical History / Comment(s): father 2019 from [place] <SameerTico bledsoe - Last Filed: 10/11/22 14:25> General Exam Limitations: no limitations <Tico Valencia - Last Filed: 10/11/22 14:25> General appearance: alert, in no apparent distress Head exam: Present: atraumatic, normocephalic, normal inspection Eye exam: Present: normal appearance, PERRL, EOMI. Absent: scleral icterus, conjunctival injection, periorbital swelling ENT exam: Present: normal exam, mucous membranes moist Neck exam: Present: normal inspection. Absent: tenderness, meningismus, lymphadenopathy Respiratory exam: Present: normal lung sounds bilaterally. Absent: respiratory distress, wheezes, rales, rhonchi, stridor Cardiovascular Exam: Present: regular rate, normal rhythm, normal heart sounds. Absent: systolic murmur, diastolic murmur, rubs, gallop, clicks GI/Abdominal exam: Present: soft, normal bowel sounds. Absent: distended, tenderness, guarding, rebound, rigid Extremities exam: Present: normal inspection, full ROM, normal capillary refill. Absent: tenderness, pedal edema, joint swelling, calf tenderness Back exam: Present: normal inspection Neurological exam: Present: alert, oriented X3, CN II-XII intact Psychiatric exam: Present: normal affect, normal mood Skin exam: Present: warm, intact, diaphoretic, pallor. Absent: rash <Tomasz Ojedaroel Allen - Last Filed: 10/18/22 22:03> - General Exam Comments Initial Comments: Visual Physical Exam Vital signs reviewed General: Well-appearing, nontoxic, no acute distress. Head: Normocephalic, atraumatic Eyes: PERRLA, EOMI ENT: Airway patent Chest: Nonlabored breathing Skin: No visual rash, normal skin tone Neuro: Alert and oriented 3 Musculoskeletal: No gross abnormalities (Tico Valencia) Course Vital Signs 10/11/22 10/11/22 10/11/22 13:39 16:28 18:00 Temperature 97.5 F L Pulse Rate 72 77 83 Respiratory 18 20 16 Rate Blood Pressure 167/124 193/127 186/121 O2 Sat by Pulse 98 98 97 Oximetry 10/11/22 10/11/22 10/11/22 18:22 18:45 19:20 Temperature Pulse Rate 86 90 66 Respiratory 16 20 20 Rate Blood Pressure 186/117 169/107 166/102 O2 Sat by Pulse 98 98 98 Oximetry Medical Decision Making - Lab Data Result diagrams: 10/11/22 15:37 10/11/22 15:37 <Collette Ojeda - Last Filed: 10/18/22 22:03> - Medical Decision Making Was pt. sent in by a medical professional or institution (, [facility], MEDICAL LABORATORY MANAGER, urgent care, hospital, or group home...) When possible be specific @ -No Did you speak to anyone other than the patient for history (EMS, parent, family, police, friend...)? What history was obtained from this source @ -girlfriend Did you review nursing and triage notes (agree or disagree)? Why? @ -I reviewed and agree with nursing and triage notes Were old charts reviewed (outside hosp., previous admission, EMS record, old EKG, old radiological studies, urgent care reports/EKG's, group home records)? Report findings @ -No old charts were reviewed Differential Diagnosis (chest pain, altered mental status, abdominal pain women, abdominal pain men, vaginal bleeding, weakness, fever, dyspnea, syncope, headache, dizziness, GI bleed, back pain, seizure, CVA, palpatations, mental health, musculoskeletal)? @ -DKA, gastroenteritis, cephalgia, SAH, anerysm ruptured, accelerated htn EKG interpreted by me (3pts min.). @ -yes X-rays interpreted by me (1pt min.). @ -no CT interpreted by me (1pt min.). @ -Yes U/S interpreted by me (1pt. min.). @ -None done What testing was considered but not performed or refused? (CT, X-rays, U/S, labs)? Why? @ -Admission for further testing - patient refused What meds were considered but not given or refused? Why? @ -More antihypertensive medications Did you discuss the management of the patient with other professionals (professionals i.e. [facility] Taylor, MEDICAL LABORATORY MANAGER, lab, RT, psych nurse, social service assistant, smt technician, teacher, water resources technical officer, director of casework services)? Give summary @ -No Was smoking cessation discussed for >3mins.? @ -No Was critical care preformed (if so, how long)? @ -No Were there social determinants of health that impacted care today? How? (Homelessness, low income, unemployed, alcoholism, drug addiction, transportation, low edu. Level, literacy, decrease access to med. care, usp, rehab)? @ -No Was there de-escalation of care discussed even if they declined (Discuss DNR or withdrawal of care, Hospice)? DNR status @ -No What co-morbidities impacted this encounter? (DM, HTN, Smoking, COPD, CAD, Cancer, CVA, ARF, Chemo, Hep., AIDS, mental health diagnosis, sleep apnea, morbid obesity)? @ -DM, htn, CAD Was patient admitted / discharged? Hospital course, mention meds given and route, prescriptions, significant lab abnormalities, going to OR and other pertinent info. @ -Upon arrival patient was placed into room 26. Thorough history and Physical exam is performed. Laboratory studies had been conducted. Sodium 133. Glucose high at 422. She was given a migraine cocktail which consisted of 10 mg of Reglan, 25 mg of Benadryl, 10 mg of Decadron, 50 mg of Toradol after CT was performed and [address] was performed the patient's head which demonstrates no acute process. He was given 10 mg of hydralazine for blood pressure control. Blood pressure does improve however still high. Because of the patient's symptoms I did recommend admission however patient adamantly refused. He is aware of the risks of leaving to include worsening symptoms and even . Girlfriend is at bedside and states that she will stay with him tonight and if he has any worsening symptoms they will return. He needs to follow-up with his primary care physician without fail. Patient discharged home in stable condition with guarded prognosis Undiagnosed new problem with uncertain prognosis? @ -yes Drug Therapy requiring intensive monitoring for toxicity (Heparin, Nitro, Insulin, Cardizem)? @ -No Were any procedures done? @ -No Diagnosis/symptom? @ -acute nausea/vomiting, acute cephalgia, hypertensive emergency Acute, or Chronic, or Acute on Chronic? @ -acute Uncomplicated (without systemic symptoms) or Complicated (systemic symptoms)? @ -complicated Side effects of treatment? @ -No Exacerbation, Progression, or Severe Exacerbation? @ -No Poses a threat to life or bodily function? How? (Chest pain, [place], [place], pneumonia, PE, COPD, DKA, ARF, appy, cholecystitis, CVA, Diverticulitis, Homicidal, Suicidal, threat to staff... and all critical care pts) @ -yes (Collette Ojeda) - Lab Data Lab Results 10/11/22 10/11/22 10/11/22 Range/Units 15:37 15:37 16:44 WBC 11.4 H (3.8-10.6) k/uL RBC 4.77 (4.30-5.90) m/uL Hgb 14.6 (13.0-17.5) gm/dL Hct 41.8 (39.0-53.0) % MCV 87.5 (80.0-100.0) fL MCH 30.6 (25.0-35.0) pg MCHC 35.0 (31.0-37.0) g/dL RDW 13.7 (11.5-15.5) % Plt Count 266 (150-450) k/uL MPV 8.2 Neutrophils % 81 % Lymphocytes % 12 % Monocytes % 3 % Eosinophils % 2 % Basophils % 1 % Neutrophils # 9.2 H (1.3-7.7) k/uL Lymphocytes # 1.3 (1.0-4.8) k/uL Monocytes # 0.4 (0-1.0) k/uL Eosinophils # 0.2 (0-0.7) k/uL Basophils # 0.1 (0-0.2) k/uL Sodium 133 L (137-145) mmol/L Potassium 4.6 (3.5-5.1) mmol/L Chloride 101 (98-107) mmol/L Carbon Dioxide 25 (22-30) mmol/L Anion Gap 7 mmol/L BUN 12 (9-20) mg/dL Creatinine 0.44 L (0.66-1.25) mg/dL Est GFR (CKD-EPI)AfAm >90 (>60 ml/min/1.73 sqM) Est GFR (CKD-EPI)NonAf >90 (>60 ml/min/1.73 sqM) Glucose 422 H (74-99) mg/dL POC Glucose (mg/dL) 384 H (70-110) mg/dL POC Glu Crossing [place] ID Maria Del Carmen, Jarred Calcium 9.2 (8.4-10.2) mg/dL Magnesium 2.0 (1.6-2.3) mg/dL Total Bilirubin 0.8 (0.2-1.3) mg/dL AST 21 (17-59) U/L ALT 20 (4-49) U/L Alkaline Phosphatase 137 H (38-126) U/L Total Protein 7.2 (6.3-8.2) g/dL Albumin 4.1 (3.5-5.0) g/dL Urine Color Urine Appearance (Clear) Urine pH (5.0-8.0) Ur Specific [place] (1.001-1.035) Urine Protein (Negative) Urine Glucose (UA) (Negative) Urine Ketones (Negative) Urine Blood (Negative) Urine Nitrite (Negative) Urine Bilirubin (Negative) Urine Urobilinogen (<2.0) mg/dL Ur Leukocyte Esterase (Negative) Ur Squamous Epith Cells (0-4) /hpf Urine Opiates Screen (NotDetected) Ur Oxycodone Screen (NotDetected) Urine Methadone Screen (NotDetected) Ur Propoxyphene Screen (NotDetected) Ur Barbiturates Screen (NotDetected) U Tricyclic Antidepress (NotDetected) Ur Phencyclidine Scrn (NotDetected) Ur Amphetamines Screen (NotDetected) U Methamphetamines Scrn (NotDetected) U Benzodiazepines Scrn (NotDetected) Urine Cocaine Screen (NotDetected) U Marijuana (THC) Screen (NotDetected) 10/11/22 Range/Units 17:23 WBC (3.8-10.6) k/uL RBC (4.30-5.90) m/uL Hgb (13.0-17.5) gm/dL Hct (39.0-53.0) % MCV (80.0-100.0) fL MCH (25.0-35.0) pg MCHC (31.0-37.0) g/dL RDW (11.5-15.5) % Plt Count (150-450) k/uL MPV Neutrophils % % Lymphocytes % % Monocytes % % Eosinophils % % Basophils % % Neutrophils # (1.3-7.7) k/uL Lymphocytes # (1.0-4.8) k/uL Monocytes # (0-1.0) k/uL Eosinophils # (0-0.7) k/uL Basophils # (0-0.2) k/uL Sodium (137-145) mmol/L Potassium (3.5-5.1) mmol/L Chloride (98-107) mmol/L Carbon Dioxide (22-30) mmol/L Anion Gap mmol/L BUN (9-20) mg/dL Creatinine (0.66-1.25) mg/dL Est GFR (CKD-EPI)AfAm (>60 ml/min/1.73 sqM) Est GFR (CKD-EPI)NonAf (>60 ml/min/1.73 sqM) Glucose (74-99) mg/dL POC Glucose (mg/dL) (70-110) mg/dL POC Glu Crossing [place] ID Calcium (8.4-10.2) mg/dL Magnesium (1.6-2.3) mg/dL Total Bilirubin (0.2-1.3) mg/dL AST (17-59) U/L ALT (4-49) U/L Alkaline Phosphatase (38-126) U/L Total Protein (6.3-8.2) g/dL Albumin (3.5-5.0) g/dL Urine Color Light Yellow Urine Appearance Clear (Clear) Urine pH 6.5 (5.0-8.0) Ur Specific [place] 1.035 (1.001-1.035) Urine Protein 1+ H (Negative) Urine Glucose (UA) 4+ H (Negative) Urine Ketones 1+ H (Negative) Urine Blood Negative (Negative) Urine Nitrite Negative (Negative) Urine Bilirubin Negative (Negative) Urine Urobilinogen <2.0 (<2.0) mg/dL Ur Leukocyte Esterase Negative (Negative) Ur Squamous Epith Cells <1 (0-4) /hpf Urine Opiates Screen Not Detected (NotDetected) Ur Oxycodone Screen Not Detected (NotDetected) Urine Methadone Screen Not Detected (NotDetected) Ur Propoxyphene Screen Not Detected (NotDetected) Ur Barbiturates Screen Not Detected (NotDetected) U Tricyclic Antidepress Not Detected (NotDetected) Ur Phencyclidine Scrn Not Detected (NotDetected) Ur Amphetamines Screen Not Detected (NotDetected) U Methamphetamines Scrn Not Detected (NotDetected) U Benzodiazepines Scrn Not Detected (NotDetected) Urine Cocaine Screen Not Detected (NotDetected) U Marijuana (THC) Screen Not Detected (NotDetected) - EKG Data EKG Comments: EKG demonstrates sinus rhythm with rate of 77. ID interval 193. QRS 86. QTC of 413. Mild ST elevation V1 through V4. Inverted T waves with ST depression in 1, 2, aVL, V5V6 (Collette Ojeda) Disposition <Tico Valencia - Last Filed: 10/11/22 14:25> Is patient prescribed a controlled substance at d/c from ED?: No Time of Disposition: 19:11 <Collette Ojeda - Last Filed: 10/18/22 22:03> Clinical Impression: Cephalgia, Hypertension Disposition: HOME SELF-CARE Condition: Stable Instructions (If sedation given, give patient instructions): Acute Headache (ED), Hypertension (ED) Additional Instructions: You need to start taking your blood pressure medications. Follow-up with your doctor and return for any new or worsening symptoms Referrals: None,Stated [Primary Care Provider] - 1-2 days
--- NOTE | 2022-10-11 15:15 | CT ---
EXAMINATION TYPE: CT brain wo con CT DLP: 1202 mGycm, Automated exposure control for dose reduction was used. DATE OF EXAM: 10/11/2022 3:03 PM COMPARISON: None. CLINICAL INDICATION:Male, 41 years old with history of Headache, TECHNIQUE: Brain: Axial CT images of the brain were obtained with coronal and sagittal reformats created and rev iewed. Contrast used: None. Oral contrast used: None. FINDINGS: Brain: Extra-axial spaces: No abnormal extra-axial fluid collections. Ventricular system: Within normal limits Cerebral parenchyma: No acute intraparenchymal hemorrhage or mass effect. The wolf-white junction is well differentiated. Cerebellum: Unremarkable. Mass effect: No evidence of midline shift. Intracranial vasculature: unremarkable Soft tissues: Normal. Calvarium/osseous structures: No depressed skull fracture. Paranasal sinuses and mastoid air cells: Mild scattered paranasal sinus disease. Visualized orbits: Orbital contents are intact. IMPRESSION: No acute intracranial process.
[2022-10-11 16:16] LABS: Basophils # (A) 0.1 k/uL (0-0.2); Basophils % (A) 1 %; Eosinophils # (A) 0.2 k/uL (0-0.7); Eosinophils % (A) 2 %; HCT 41.8 % (39.0-53.0); HGB 14.6 gm/dL (13.0-17.5); Lymphocytes # (A) 1.3 k/uL (1.0-4.8); Lymphocytes % (A) 12 %; MCH 30.6 pg (25.0-35.0); MCV 87.5 fL (80.0-100.0); Mean Platelet Volume 8.2; Monocytes # (A) 0.4 k/uL (0-1.0); Monocytes % (A) 3 %; Neutrophils # (A) 9.2 k/uL (1.3-7.7); Neutrophils % (A) 81 %; Platelet Count 266 k/uL (150-450); RBC 4.77 m/uL (4.30-5.90); RDW 13.7 % (11.5-15.5); WBC 11.4 k/uL (3.8-10.6)
[2022-10-11 16:31] LABS: ALT 20 U/L (4-49); AST 21 U/L (17-59); African American GFR (CKD) >90 (>60 ml/min/1.73 sqM); Albumin 4.1 g/dL (3.5-5.0); Alkaline Phosphatase 137 U/L (38-126); Anion Gap 7 mmol/L; Blood Urea Nitrogen 12 mg/dL (9-20); Calcium 9.2 mg/dL (8.4-10.2); Carbon Dioxide 25 mmol/L (22-30); Chloride 101 mmol/L (98-107); Glucose 422 mg/dL (74-99); Non-African American GFR(CKD) >90 (>60 ml/min/1.73 sqM); Potassium 4.6 mmol/L (3.5-5.1); Sodium 133 mmol/L (137-145); Total Bilirubin 0.8 mg/dL (0.2-1.3); Total Protein 7.2 g/dL (6.3-8.2)
[2022-10-11 16:48] LABS: Glucose,Whole Blood 384 mg/dL (70-110)
[2022-10-11 17:32] LABS: Appearance,Urine Clear (Clear); Bilirubin,Urine Negative (Negative); Blood,Urine Negative (Negative); Color,Urine Light Yellow; Glucose,Urine (UA) 4+ (Negative); Ketones,Urine 1+ (Negative); Leukocyte Esterase,Urine Negative (Negative); Nitrite,Urine Negative (Negative); PH, Urine 6.5 (5.0-8.0); Protein,Urine 1+ (Negative); Specific Gravity,Urine 1.035 (1.001-1.035); Squamous Epithelial Cell,Urine <1 /hpf (0-4); Urobilinogen,Urine <2.0 mg/dL (<2.0)
[2022-10-11] MEDS ORDERED: diphenhydrAMINE 50 MG/ML 1 ML VIAL IVP STA (17:32)
[2022-10-11] MEDS ORDERED: MAGNESIUM SULFATE-D5W PMX 1 GM in DEXTROSE/WATER 1 100ML.BAG IVPB ONE (17:32)
[2022-10-11] MEDS ORDERED: KETOROLAC 15 MG/ML 1 ML VIAL IVP STA (17:32)
[2022-10-11] MEDS ORDERED: METOCLOPRAMIDE 5 MG/ML 2 ML VIAL IVP STA (17:32)
[2022-10-11] MEDS ORDERED: DEXAMETHASONE SOD PHOSPHATE 10 MG/ML 1 ML VIAL IVP STA (17:32)
[2022-10-11 17:43] LABS: Amphetamine Screen,Urine Not Detected (NotDetected); Barbiturate Screen,Urine Not Detected (NotDetected); Benzodiazepines Screen,Urine Not Detected (NotDetected); Cocaine Screen,Urine Not Detected (NotDetected); Methadone Screen, Urine Not Detected (NotDetected); Opiate Screen,Urine Not Detected (NotDetected); Oxycodone Screen, Urine Not Detected (NotDetected); Phencyclidine Screen,Urine Not Detected (NotDetected); Tricyclic Antidepressant,Urine Not Detected (NotDetected); Urn Cannabinoid Scrn Not Detected (NotDetected)
[2022-10-11] MEDS ORDERED: hydrALAZINE HCL 20 MG/ML 1 ML VIAL IVP STA (18:16)
[2022-10-11 18:46] VITALS: RESP 20
[2022-10-11 19:21] VITALS: BP 166/102; PULSE 66
== END 2022-10-11 19:21 | disposition home or self-care (01) ==
LOC: EC 13:26
DX: I10 Essential (primary) hypertension (principal); R51.9 Headache, unspecified; E11.40 Type 2 diabetes mellitus with diabetic neuropathy, unspecified; E78.5 Hyperlipidemia, unspecified; F32.A Depression, unspecified; Z79.4 Long term (current) use of insulin; Z79.899 Other long term (current) drug therapy
CPT/HCPCS: 36415; 93005; 80053; 83735; 85025; 81001; 80306; 70450; 99284; 96365; 96375; J0360; J1200; J1100; J2765; J3475; J1885

== ENCOUNTER 2022-10-12 00:19 | Inpatient (IN) | payer BC ==
[2022-10-12] MEDS ORDERED: SODIUM CHLORIDE 0.9% 1,000 ML IV ONE ×2 (01:09→04:37)
[2022-10-12] MEDS ORDERED: LABETALOL 5 MG/ML VIAL MDV IVP STA ×2 (01:09→04:40)
[2022-10-12] MEDS ORDERED: diphenhydrAMINE 50 MG/ML 1 ML VIAL IVP STA (01:11)
[2022-10-12] MEDS ORDERED: KETOROLAC 15 MG/ML 1 ML VIAL IVP STA (01:11)
[2022-10-12] MEDS ORDERED: PROCHLORPERAZINE INJ 10 MG/2 ML VIAL IVP STA (01:11)
[2022-10-12 01:53] LABS: ALT 22 U/L (4-49); AST 19 U/L (17-59); African American GFR (CKD) >90 (>60 ml/min/1.73 sqM); Albumin 4.6 g/dL (3.5-5.0); Alkaline Phosphatase 167 U/L (38-126); Anion Gap 17 mmol/L; Blood Urea Nitrogen 14 mg/dL (9-20); Calcium 9.6 mg/dL (8.4-10.2); Carbon Dioxide 21 mmol/L (22-30); Chloride 95 mmol/L (98-107); Non-African American GFR(CKD) >90 (>60 ml/min/1.73 sqM); Potassium 5.3 mmol/L (3.5-5.1); Sodium 133 mmol/L (137-145); Total Bilirubin 1.1 mg/dL (0.2-1.3); Total Protein 7.9 g/dL (6.3-8.2)
[2022-10-12 02:06] LABS: Glucose 536 mg/dL (74-99)
[2022-10-12 02:08] LABS: Basophils % (A) 0 %; Eosinophils % (A) 0 %; HCT 45.5 % (39.0-53.0); HGB 14.9 gm/dL (13.0-17.5); Lymphocytes # (A) 0.4 k/uL (1.0-4.8); Lymphocytes % (A) 5 %; MCH 29.9 pg (25.0-35.0); MCHC 32.7 g/dL (31.0-37.0); MCV 91.3 fL (80.0-100.0); Mean Platelet Volume 8.1; Monocytes # (A) 0.1 k/uL (0-1.0); Monocytes % (A) 1 %; Neutrophils # (A) 8.4 k/uL (1.3-7.7); Neutrophils % (A) 93 %; Platelet Count 327 k/uL (150-450); RBC 4.98 m/uL (4.30-5.90); RDW 13.5 % (11.5-15.5); WBC 9.1 k/uL (3.8-10.6)
[2022-10-12 03:10] LABS: Appearance,Urine Clear (Clear); Bilirubin,Urine Negative (Negative); Blood,Urine Negative (Negative); Color,Urine Colorless; Glucose,Urine (UA) 4+ (Negative); Leukocyte Esterase,Urine Negative (Negative); Nitrite,Urine Negative (Negative); PH, Urine 5.5 (5.0-8.0); Protein,Urine Trace (Negative); Specific Gravity,Urine 1.035 (1.001-1.035); Urobilinogen,Urine <2.0 mg/dL (<2.0)
[2022-10-12 03:16] LABS: Ketones,Urine 3+ (Negative)
--- NOTE | 2022-10-12 03:22 | CT ---
EXAMINATION TYPE: CT angio head neck DATE OF EXAM: 10/12/2022 COMPARISON: None HISTORY: headache, pt is dm & increased bp. pt seen 10/11/[address] DLP: 669.2 mGycm Automated exposure control for dose reduction was used. CONTRAST: Performed with IV Contrast, patient injected with 65 mL of Isovue 370. Images obtained from the top of the aortic arch to the vertex of the brain with the IV contrast. Ther e are Three-D postprocessed images. There is normal branching pattern of the great vessels on the aortic arch. There is arterial flow in both subclavian arteries. There is arterial flow in the common internal and external carotid arteries bilaterally. There is wide patency of the carotid artery bifurcations. There is arterial flow in bot h vertebral arteries. There is arterial flow in the vertebral basilar artery system. There is no evid ence of carotid or vertebral artery aneurysm or dissection. There is arterial flow in the anterior middle and posterior cerebral arteries. No mass effect. There is normal enhancement of the venous sinuses. No evidence of intracranial aneurysm or neovascularity. No evidence of intracranial hemodynamic arterial stenosis. The posterior cerebral arteries appear to fill significantly through the posterior communicating arteries. No evidence of cerebral edema. No evidence of intracranial hemorrhage. IMPRESSION: Negative CT angiogram of the neck. Negative CT angiogram of the brain.
[2022-10-12 03:41] LABS: Glucose,Whole Blood 477 mg/dL (70-110)
[2022-10-12 03:45] LABS: VBG PH 7.44 (7.31-7.41)
[2022-10-12] MEDS ORDERED: KETOROLAC 15 MG/ML 1 ML VIAL IVP PRN (04:15)
[2022-10-12] MEDS ORDERED: NALOXONE 0.4 MG/ML 1 ML VIAL IV PRN (04:15)
[2022-10-12] MEDS ORDERED: DEXTROSE 50% SYRINGE 50 ML IVP PRN ×2 (04:18)
--- NOTE | 2022-10-12 04:23 | ED ---
General Adult HPI - General Chief complaint: Headache Stated complaint: Headache, DC today Time Seen by Provider: 10/12/22 00:44 Source: patient Mode of arrival: wheelchair Limitations: no limitations - History of Present Illness Initial comments: This is a 41-year-old male with a past medical history including hypertension, diabetes, cardiac stents and hypertension presented to the emergency department for headaches. The patient was seen in the emergency department several hours ago and had a full workup obtained as the patient had headaches and uncontrolled hypertension. The patient was advised at that time to be admitted for further workup and evaluation of his headaches and uncontrolled blood pressure however he refused and went home instead. The patient stated that after 2 hours he started to have worsening pain and recurrence of his headaches. The patient stated he was having pain "all over" and was similar to when he presented to the emergency department several hours prior. The patient's significant other at the bedside stated that he was in more pain. The patient denied any lightheadedness or dizziness but did state that he had a headache with intermittent blurry vision. The patient was resting in bed in minimal distress. The patient denied any other complaints at this time. - Related Data Home Medications Medication Instructions Recorded Confirmed Albuterol Sulfate [Proair Hfa] 2 puff INHALATION RT-Q4H PRN 11/20/20 07/03/21 Aspirin EC [Ecotrin Low Dose] 81 mg PO DAILY 11/20/20 07/03/21 DULoxetine HCL [Cymbalta] 60 mg PO DAILY 11/20/20 07/03/21 glipiZIDE [Glucotrol] 10 mg PO DAILY 02/15/21 07/03/21 hydrALAZINE HCL [Apresoline] 50 mg PO BID 02/15/21 07/03/21 Spironolactone [Aldactone] 50 mg PO DAILY 03/03/21 07/03/21 Previous Rx's Medication Instructions Recorded Atorvastatin [Lipitor] 80 mg PO DAILY #30 tab 11/24/20 Famotidine [Pepcid] 20 mg PO DAILY #30 tab 11/24/20 INSULIN ASPART (NovoLOG) [NovoLOG 12 unit SQ AC-TID #1 vial 11/24/20 (formulary)] Insulin Detemir (Levemir) [Levemir] 35 unit SQ DAILY #0 11/24/20 Losartan [Cozaar] 100 mg PO DAILY #30 tab 11/24/20 Nitroglycerin Sl Tabs [Nitrostat] 0.4 mg SUBLINGUAL Q5M PRN #25 tab 11/24/20 Ticagrelor [Brilinta] 90 mg PO BID #60 tab 11/24/20 metFORMIN HCL [Glucophage] 1,000 mg PO BID #0 11/24/20 carvediloL [Coreg] 25 mg PO BID #60 tablet 02/16/21 Furosemide [Lasix] 40 mg PO DAILY #60 tab 03/05/21 Ascorbic Acid [Vitamin C] 1,000 mg PO DAILY tab 07/08/21 Cholecalciferol [Vitamin D3 (25 50 mcg PO DAILY tablet 07/08/21 Mcg = 1000 Iu)] Zinc Sulfate [Orazinc] 220 mg PO DAILY cap 07/08/21 metroNIDAZOLE [Flagyl] 500 mg PO TID #90 tab 07/08/21 Ciprofloxacin HCl [Cipro] 500 mg PO BID 30 Days #60 tab 07/13/21 Cephalexin [Keflex] 500 mg PO Q6HR #40 cap 09/25/22 Ibuprofen [Motrin] 800 mg PO Q8HR PRN #30 tab 09/25/22 Sulfamethox-Tmp 800-160Mg [Bactrim 1 each PO Q12HR #20 tab 09/25/22 Ds] Allergies Allergy/AdvReac Type Severity Reaction Status Date / Time No Known Allergies Allergy Verified 10/12/22 00:30 Review of Systems ROS Statement: Those systems with pertinent positive or pertinent negative responses have been documented in the HPI. ROS Other: All systems not noted in ROS Statement are negative. Past Medical History Past Medical History: Diabetes Mellitus, Hyperlipidemia, Hypertension Additional Past Medical History / Comment(s): neuropathy Last Myocardial Infarction Date:: 11/20/2020 History of Any Multi-Drug Resistant Organisms: ESBL Date of last positivie culture/infection: 03/03/21 E. coli ESBL MDRO Source:: Left Foot Past Surgical History: Back Surgery, Hernia Repair Additional Past Surgical History / Comment(s): 4 cardiac stents 11/20/2020, 1 cardiac stent 11/23/2020 Past Anesthesia/Blood Transfusion Reactions: No Reported Reaction Past Psychological History: Depression Smoking Status: Never smoker Past Alcohol Use History: None Reported Past Drug Use History: None Reported - Past Family History Mother Family Medical History: Diabetes Mellitus Father Family Medical History: Congestive Heart Failure (CHF), Coronary Artery Disease (CAD), Diabetes Mellitus, Hypertension, Myocardial Infarction ([place]) Additional Family Medical History / Comment(s): father 2019 from [place] General Exam Limitations: no limitations General appearance: alert, in distress (In mild distress secondary to headache) Head exam: Present: atraumatic, normocephalic, normal inspection Eye exam: Present: normal appearance, PERRL Pupils: Present: normal accommodation ENT exam: Present: normal exam, normal oropharynx, mucous membranes moist Neck exam: Present: normal inspection, full ROM Respiratory exam: Present: normal lung sounds bilaterally Cardiovascular Exam: Present: regular rate, normal rhythm, normal heart sounds GI/Abdominal exam: Present: soft, normal bowel sounds Extremities exam: Present: normal inspection, full ROM Back exam: Present: normal inspection, full ROM Neurological exam: Present: alert, oriented X3, CN II-XII intact Psychiatric exam: Present: normal affect, normal mood Skin exam: Present: warm, dry Course Vital Signs 10/12/22 10/12/22 10/12/22 00:31 00:44 00:50 Temperature 99.4 F Pulse Rate 100 103 H Respiratory 18 17 Rate Blood Pressure 171/110 193/123 O2 Sat by Pulse 98 98 95 Oximetry 10/12/22 10/12/22 10/12/22 01:00 01:10 01:20 Temperature Pulse Rate 102 H 103 H 104 H Respiratory Rate Blood Pressure 193/123 186/119 186/119 O2 Sat by Pulse 95 95 97 Oximetry 10/12/22 10/12/22 10/12/22 01:30 01:40 01:50 Temperature Pulse Rate 105 H 98 92 Respiratory 12 21 18 Rate Blood Pressure 186/119 182/116 161/107 O2 Sat by Pulse 96 Oximetry 10/12/22 10/12/22 10/12/22 02:00 02:10 02:20 Temperature Pulse Rate 91 92 93 Respiratory Rate Blood Pressure 161/107 163/108 151/101 O2 Sat by Pulse Oximetry 10/12/22 10/12/22 10/12/22 02:30 02:40 02:50 Temperature Pulse Rate 96 93 Respiratory Rate Blood Pressure 151/101 155/102 155/102 O2 Sat by Pulse Oximetry 10/12/22 10/12/22 10/12/22 03:00 03:10 03:20 Temperature Pulse Rate 100 96 97 Respiratory 17 Rate Blood Pressure 155/102 177/109 161/98 O2 Sat by Pulse 96 95 96 Oximetry 10/12/22 10/12/22 10/12/22 03:30 03:40 03:50 Temperature Pulse Rate 97 103 H 99 Respiratory 18 Rate Blood Pressure 161/98 166/100 170/97 O2 Sat by Pulse 96 97 94 L Oximetry 10/12/22 10/12/22 10/12/22 04:00 04:10 04:14 Temperature Pulse Rate 98 98 98 Respiratory 18 Rate Blood Pressure 170/97 134/81 134/81 O2 Sat by Pulse 95 95 98 Oximetry 10/12/22 10/12/22 10/12/22 04:20 04:30 04:35 Temperature 100.2 F H Pulse Rate 100 103 H Respiratory 16 Rate Blood Pressure 140/79 140/79 O2 Sat by Pulse 95 96 Oximetry 10/12/22 04:40 Temperature Pulse Rate 99 Respiratory Rate Blood Pressure 180/122 O2 Sat by Pulse 95 Oximetry EKG Findings - EKG Comments: EKG Findings:: An EKG was obtained and was interpreted by myself showing a rate of 106, GA interval of 180, QRS duration of 84 and QTC of 391. This EKG showed a sinus tachycardia without any significant ST segment elevation or depression. There was however [address] elevation in V1 and V2. There was no reciprocal depressions. The patient did not complain of any chest pain or shortness of breath. Medical Decision Making - Medical Decision Making Was pt. sent in by a medical professional or institution (, PA, RAIL SIGNAL MECHANIC, urgent care, hospital, or prison...) When possible be specific @ -No Did you speak to anyone other than the patient for history (EMS, parent, family, police, friend...)? What history was obtained from this source @ -Yes, patient's significant other Did you review nursing and triage notes (agree or disagree)? Why? @ -I reviewed and agree with nursing and triage notes Were old charts reviewed (outside hosp., previous admission, EMS record, old EKG, old radiological studies, urgent care reports/EKG's, prison records)? Report findings @ -Yes, previous ER visit several hours ago was reviewed Differential Diagnosis (chest pain, altered mental status, abdominal pain women, abdominal pain men, vaginal bleeding, weakness, fever, dyspnea, syncope, headache, dizziness, GI bleed, back pain, seizure, CVA, palpatations, mental health)? @ -Hypertensive emergency, ACS, subarachnoid hemorrhage EKG interpreted by me (3pts min.). @ -As above X-rays interpreted by me (1pt min.). @ -None done CT interpreted by me (1pt min.). @ -CTA of the head and neck was obtained and was interpreted by myself showing no acute process. U/S interpreted by me (1pt. min.). @ -None done What testing was considered but not performed or refused? (CT, X-rays, U/S, labs)? Why? @ -Plain CT of the head as well as a chest x-ray were obtained on the previous admission several hours prior therefore these were not repeated. What meds were considered but not given or refused? Why? @ -None Did you discuss the management of the patient with other professionals (professionals i.e. , PA, RAIL SIGNAL MECHANIC, lab, RT, psych nurse, social insurance specialist, pump installer, teacher, foreign service officer, case consultant)? Give summary @ -Yes, admitting team, Cullen Burns Was smoking cessation discussed for >3mins.? @ -No Was critical care preformed (if so, how long)? @ -No Were there social determinants of health that impacted care today? How? (Homelessness, low income, unemployed, alcoholism, drug addiction, transportation, low edu. Level, literacy, decrease access to med. care, fci, rehab)? @ -No Was there de-escalation of care discussed even if they declined (Discuss DNR or withdrawal of care, Hospice)? DNR status @ -No What co-morbidities impacted this encounter? (DM, HTN, Smoking, COPD, CAD, Cancer, CVA, ARF, Chemo, Hep., AIDS, mental health diagnosis, sleep apnea, morbid obesity)? @ -Poorly controlled hypertension, cardiac stents, uncontrolled diabetes Was patient admitted / discharged? Hospital course, mention meds given and route, prescriptions, significant lab abnormalities, going to OR and other pertinent info. @ -The patient was seen and evaluated in emergency department. Physical exam, the patient was in bed with mild distress secondary to headache. The patient was hypertensive and tachycardic on arrival. The patient had a full workup obtained several hours prior therefore did have a few laboratory workup was repeated but did have a CT of the head and neck as well as a COVID-19 test obtained. All imaging and workup was negative however the patient remained symptomatic with his headache. The patient was given medications for blood pressure as well as Compazine, Benadryl and fluids as the patient did receive Toradol and steroids earlier in the day. On evaluation, the patient had mild improvement of his symptoms however the patient continued to have hyperglycemia. Computed tomography scan was negative. Due to the patient's continued hyperglycemia, hypertension, the patient will be admitted for further workup and evaluation. The patient was accepted by the admitting team, Cullen Burns. While in the emergency department, the patient did receive a second liter of normal saline fluid as the patient's glucose remained elevated. The patient did also receive subcutaneous insulin. The patient did receive a second dose of blood pressure medications as his blood pressure continued to fluctuate and then increase while in the emergency department. The patient however remained stable. Undiagnosed new problem with uncertain prognosis? @ -No Drug Therapy requiring intensive monitoring for toxicity (Heparin, Nitro, Insulin, Cardizem)? @ -No Were any procedures done? @ -No Diagnosis/symptom? @ -Uncontrolled hypertension with associated intractable headaches Acute, or Chronic, or Acute on Chronic? @ -Acute on chronic Uncomplicated (without systemic symptoms) or Complicated (systemic symptoms)? @ -Complicated Side effects of treatment? @ -No Exacerbation, Progression, or Severe Exacerbation? @ -No Poses a threat to life or bodily function? How? (Chest pain, [place], [place], pneumonia, PE, COPD, DKA, ARF, appy, cholecystitis, CVA, Diverticulitis, Homicidal, Suicida l, threat to staff... and all critical care pts) @ -Yes, uncontrolled hypertension can lead to permanent and end organ damage including possible stroke and possible . - Lab Data Result diagrams: 10/12/22 01:13 10/12/22 01:13 Lab Results 10/12/22 10/12/22 10/12/22 Range/Units 01:13 01:13 01:13 WBC 9.1 (3.8-10.6) k/uL RBC 4.98 (4.30-5.90) m/uL Hgb 14.9 (13.0-17.5) gm/dL Hct 45.5 (39.0-53.0) % MCV 91.3 (80.0-100.0) fL MCH 29.9 (25.0-35.0) pg MCHC 32.7 (31.0-37.0) g/dL RDW 13.5 (11.5-15.5) % Plt Count 327 (150-450) k/uL MPV 8.1 Neutrophils % 93 % Lymphocytes % 5 % Monocytes % 1 % Eosinophils % 0 % Basophils % 0 % Neutrophils # 8.4 H (1.3-7.7) k/uL Lymphocytes # 0.4 L (1.0-4.8) k/uL Monocytes # 0.1 (0-1.0) k/uL Eosinophils # 0.0 (0-0.7) k/uL Basophils # 0.0 (0-0.2) k/uL VBG pH (7.31-7.41) VBG pCO2 (37-51) mmHg VBG HCO3 (24-28) mmol/L Sodium 133 L (137-145) mmol/L Potassium 5.3 H (3.5-5.1) mmol/L Chloride 95 L (98-107) mmol/L Carbon Dioxide 21 L (22-30) mmol/L Anion Gap 17 mmol/L BUN 14 (9-20) mg/dL Creatinine 0.61 L (0.66-1.25) mg/dL Est GFR (CKD-EPI)AfAm >90 (>60 ml/min/1.73 sqM) Est GFR (CKD-EPI)NonAf >90 (>60 ml/min/1.73 sqM) Glucose 536 H* (74-99) mg/dL POC Glucose (mg/dL) (70-110) mg/dL POC Glu Manager Appointment ID Calcium 9.6 (8.4-10.2) mg/dL Magnesium 2.0 (1.6-2.3) mg/dL Total Bilirubin 1.1 (0.2-1.3) mg/dL AST 19 (17-59) U/L ALT 22 (4-49) U/L Alkaline Phosphatase 167 H (38-126) U/L Troponin I <0.012 (0.000-0.034) ng/mL Total Protein 7.9 (6.3-8.2) g/dL Albumin 4.6 (3.5-5.0) g/dL Urine Color Urine Appearance (Clear) Urine pH (5.0-8.0) Ur Specific [place] (1.001-1.035) Urine Protein (Negative) Urine Glucose (UA) (Negative) Urine Ketones (Negative) Urine Blood (Negative) Urine Nitrite (Negative) Urine Bilirubin (Negative) Urine Urobilinogen (<2.0) mg/dL Ur Leukocyte Esterase (Negative) Coronavirus (PCR) (Not Detectd) 10/12/22 10/12/22 10/12/22 Range/Units 01:21 02:26 03:34 WBC (3.8-10.6) k/uL RBC (4.30-5.90) m/uL Hgb (13.0-17.5) gm/dL Hct (39.0-53.0) % MCV (80.0-100.0) fL MCH (25.0-35.0) pg MCHC (31.0-37.0) g/dL RDW (11.5-15.5) % Plt Count (150-450) k/uL MPV Neutrophils % % Lymphocytes % % Monocytes % % Eosinophils % % Basophils % % Neutrophils # (1.3-7.7) k/uL Lymphocytes # (1.0-4.8) k/uL Monocytes # (0-1.0) k/uL Eosinophils # (0-0.7) k/uL Basophils # (0-0.2) k/uL VBG pH 7.44 H (7.31-7.41) VBG pCO2 29 L (37-51) mmHg VBG HCO3 19 L (24-28) mmol/L Sodium (137-145) mmol/L Potassium (3.5-5.1) mmol/L Chloride (98-107) mmol/L Carbon Dioxide (22-30) mmol/L Anion Gap mmol/L BUN (9-20) mg/dL Creatinine (0.66-1.25) mg/dL Est GFR (CKD-EPI)AfAm (>60 ml/min/1.73 sqM) Est GFR (CKD-EPI)NonAf (>60 ml/min/1.73 sqM) Glucose (74-99) mg/dL POC Glucose (mg/dL) (70-110) mg/dL POC Glu Manager Appointment ID Calcium (8.4-10.2) mg/dL Magnesium (1.6-2.3) mg/dL Total Bilirubin (0.2-1.3) mg/dL AST (17-59) U/L ALT (4-49) U/L Alkaline Phosphatase (38-126) U/L Troponin I (0.000-0.034) ng/mL Total Protein (6.3-8.2) g/dL Albumin (3.5-5.0) g/dL Urine Color Colorless Urine Appearance Clear (Clear) Urine pH 5.5 (5.0-8.0) Ur Specific [place] 1.035 (1.001-1.035) Urine Protein Trace H (Negative) Urine Glucose (UA) 4+ H (Negative) Urine Ketones 3+ H (Negative) Urine Blood Negative (Negative) Urine Nitrite Negative (Negative) Urine Bilirubin Negative (Negative) Urine Urobilinogen <2.0 (<2.0) mg/dL Ur Leukocyte Esterase Negative (Negative) Coronavirus (PCR) Not Detected (Not Detectd) 10/12/22 Range/Units 03:39 WBC (3.8-10.6) k/uL RBC (4.30-5.90) m/uL Hgb (13.0-17.5) gm/dL Hct (39.0-53.0) % MCV (80.0-100.0) fL MCH (25.0-35.0) pg MCHC (31.0-37.0) g/dL RDW (11.5-15.5) % Plt Count (150-450) k/uL MPV Neutrophils % % Lymphocytes % % Monocytes % % Eosinophils % % Basophils % % Neutrophils # (1.3-7.7) k/uL Lymphocytes # (1.0-4.8) k/uL Monocytes # (0-1.0) k/uL Eosinophils # (0-0.7) k/uL Basophils # (0-0.2) k/uL VBG pH (7.31-7.41) VBG pCO2 (37-51) mmHg VBG HCO3 (24-28) mmol/L Sodium (137-145) mmol/L Potassium (3.5-5.1) mmol/L Chloride (98-107) mmol/L Carbon Dioxide (22-30) mmol/L Anion Gap mmol/L BUN (9-20) mg/dL Creatinine (0.66-1.25) mg/dL Est GFR (CKD-EPI)AfAm (>60 ml/min/1.73 sqM) Est GFR (CKD-EPI)NonAf (>60 ml/min/1.73 sqM) Glucose (74-99) mg/dL POC Glucose (mg/dL) 477 H (70-110) mg/dL POC Glu Manager Appointment ID Padmini Bland Calcium (8.4-10.2) mg/dL Magnesium (1.6-2.3) mg/dL Total Bilirubin (0.2-1.3) mg/dL AST (17-59) U/L ALT (4-49) U/L Alkaline Phosphatase (38-126) U/L Troponin I (0.000-0.034) ng/mL Total Protein (6.3-8.2) g/dL Albumin (3.5-5.0) g/dL Urine Color Urine Appearance (Clear) Urine pH (5.0-8.0) Ur Specific [place] (1.001-1.035) Urine Protein (Negative) Urine Glucose (UA) (Negative) Urine Ketones (Negative) Urine Blood (Negative) Urine Nitrite (Negative) Urine Bilirubin (Negative) Urine Urobilinogen (<2.0) mg/dL Ur Leukocyte Esterase (Negative) Coronavirus (PCR) (Not Detectd) Disposition Clinical Impression: Hypertensive emergency, Headache, Hyperglycemia, Dehydration Disposition: ADMITTED IP TO THIS [facility] Condition: Stable Is patient prescribed a controlled substance at d/c from ED?: No Time of Disposition: 03:15 Decision to Admit Reason: Admit from EC Decision Date: 10/12/22 Decision Time: 03:15
[2022-10-12 04:32] LABS: Glucose,Whole Blood 536 mg/dL (70-110)
[2022-10-12] MEDS ORDERED: INSULIN ASPART (NovoLOG) 100 UNIT/ML VIAL SQ ONE (04:37)
[2022-10-12] MEDS ORDERED: ACETAMINOPHEN TAB 500 MG TAB PO STA (04:40)
[2022-10-12 05:42] LABS: Glucose,Whole Blood 440 mg/dL (70-110)
[2022-10-12 06:36] LABS: Glucose,Whole Blood 481 mg/dL (70-110)
[2022-10-12] MEDS ORDERED: INSULIN DETEMIR (LEVEMIR) 100 UNIT/ML SYR SQ SCH (07:30)
[2022-10-12] MEDS ORDERED: INSULIN ASPART (NovoLOG) 100 UNIT/ML VIAL SQ SCH ×2 (07:30→17:30)
[2022-10-12] MEDS ORDERED: Magnesium Replacement Protocol 1 EACH MISC MISCELLANE PRN (09:24)
[2022-10-12] MEDS ORDERED: Potassium Replacement Protocol 1 EACH MISC MISCELLANE PRN (09:24)
[2022-10-12] MEDS ORDERED: SODIUM CHLORIDE 0.9% 1,000 ML IV SCH (09:30)
[2022-10-12] MEDS ORDERED: INSULIN REGULAR 100 UNIT in SODIUM CHLORIDE 0.9% 100 ML IV SCH (10:00)
[2022-10-12] MEDS ORDERED: PANTOPRAZOLE 40 MG/10 ML VIAL IVP SCH (10:00)
[2022-10-12 10:10] LABS: Glucose,Whole Blood 311 mg/dL (70-110)
[2022-10-12 10:32] VITALS: BMI 31.2
[2022-10-12 10:45] LABS: Glucose,Whole Blood 326 mg/dL (70-110)
[2022-10-12 12:00] LABS: Glucose,Whole Blood 275 mg/dL (70-110)
[2022-10-12 12:12] LABS: African American GFR (CKD) >90 (>60 ml/min/1.73 sqM); Anion Gap 10 mmol/L; Blood Urea Nitrogen 15 mg/dL (9-20); Carbon Dioxide 25 mmol/L (22-30); Chloride 100 mmol/L (98-107); Glucose 309 mg/dL (74-99); Non-African American GFR(CKD) >90 (>60 ml/min/1.73 sqM); Phosphorus 3.4 mg/dL (2.5-4.5); Potassium 3.7 mmol/L (3.5-5.1); Sodium 135 mmol/L (137-145)
[2022-10-12 13:02] LABS: Glucose,Whole Blood 196 mg/dL (70-110)
[2022-10-12] MEDS ORDERED: D5-0.45% NACL WITH KCL 20MEQ/L 1,000 ML IV SCH (14:00)
[2022-10-12 14:02] LABS: Glucose,Whole Blood 156 mg/dL (70-110)
--- NOTE | 2022-10-12 14:18 | P.HPIM ---
History of Present Illness H&P Date: 10/12/22 This is a 41 year old male with medical history of hypertension, diabetes, and prior cardiac stenting, patient also has a known EF of 45%. Patient presents to the hospital with headache and also uncontrolled hypertension. He left AMA from the emergency center and returns with worsening headache and blurry vision, he also reports difficulty finding his words. He reports headache left temporal region ongoing for about 1 day, he does have sinus congestion. He does appear mildly confused on assessment. He reports noncompliance with insulin outpatient and states that his blood glucose usually runs around 400 at home. He does not follow with a PCP, and doesn't remember who he has seen in the past. He had brain CT angiography done which is negative for acute changes or hemorrhage. He does present with mild low grade fever of 99.4 and also blood pressure of 171/110. He also has blood glucose of 536 on admission with positive ketones in urine and anion gap of 17. Patient will be treated for diabetic ketoacidosis. He has had T max of 100.2 since admission. Acetone will be checked and patients b lood glucose remains in the 480s which patient will be started on insulin gtt DKA protocol. Blood pressure has improved. Covid is negative. REVIEW OF SYSTEMS: CONSTITUTIONAL: No fever, no malaise, no fatigue. Reports difficulty finding words HEENT: No recent visual problems or hearing problems. Denied any sore throat. CARDIOVASCULAR: No chest pain, orthopnea, PND, no palpitations, no syncope. PULMONARY: No shortness of breath, no cough, no hemoptysis. GASTROINTESTINAL: No diarrhea, no nausea, no vomiting, no abdominal pain. NEUROLOGICAL: No headaches, no weakness, no numbness. HEMATOLOGICAL: Denies any bleeding or petechiae. GENITOURINARY: Denies any burning micturition, frequency, or urgency. MUSCULOSKELETAL/RHEUMATOLOGICAL: Denies any joint pain, swelling, or any muscle pain. ENDOCRINE: Denies any polyuria or polydipsia. The rest of the 14-point review of systems is negative. PHYSICAL EXAMINATION: GENERAL: The patient is alert and oriented x3, not in any acute distress. Well developed, well nourished. HEENT: Pupils are round and equally reacting to light. EOMI. No scleral icterus. No conjunctival pallor. Normocephalic, atraumatic. No pharyngeal erythema. No thyromegaly. CARDIOVASCULAR: S1 and S2 present. No murmurs, rubs, or gallops. PULMONARY: Chest is clear to auscultation, no wheezing or crackles. ABDOMEN: Soft, nontender, nondistended, normoactive bowel sounds. No palpable organomegaly. MUSCULOSKELETAL: No joint swelling or deformity. EXTREMITIES: No cyanosis, clubbing, or pedal edema. NEUROLOGICAL: Gross neurological examination did not reveal any focal deficits. His speech is fluent, he is drowsy. SKIN: No rashes. Assessment and plan Assessment Altered mental status from acute metabolic encephalopathy secondary to DKA. Diabetic ketoacidosis patient will be started on insulin drip per DKA protocol and will check serum acetone. Blood glucose remains 481. Labs will be repeated around noon. Hypertension, uncontrolled Migraine and sinus congestion likely has an underlying acute sinusitis Hyponatremia Hyperkalemia Diabetes Mellitus uncontrolled with hgb A1c of 14.3 Diabetic neuropathy History of coronary artery disease with prior cardiac stenting Ischemic cardiomyopathy and chronic systolic heart failure with no acute exacerbation Hyperlipidemia Elevated ALT Anxiety/Depression GERD Medication noncompliance GI prophylaxis DVT prophylaxis Full Code Plan Start insulin gtt per DKA protocol and check acetone level Follow up labs and once anion gap closes patient will be transitioned to injectible insulin Discussed with patient importance of medication compliance and recommend close follow up with primary provider and endocrinology discharge. Resume appropriate home medication. Patient likely D/C home in the next 24 hours. The impression and plan of care has been dictated by Addis Cruz Nurse Practitioner as directed. Dr. Ernestine MD I have performed a history and physical examination and medical decision making of this patient, discussed the same with the dictator, and agree with the dictators assessment and plan as written, documented as a scribe. Based on total visit time, I have performed more than 50% of this visit. Past Medical History Past Medical History: Diabetes Mellitus, Hyperlipidemia, Hypertension Additional Past Medical History / Comment(s): neuropathy Last Myocardial Infarction Date:: 11/20/2020 History of Any Multi-Drug Resistant Organisms: ESBL Date of last positivie culture/infection: 03/03/21 E. coli ESBL MDRO Source:: Left Foot Past Surgical History: Back Surgery, Hernia Repair Additional Past Surgical History / Comment(s): 4 cardiac stents 11/20/2020, 1 cardiac stent 11/23/2020 Past Anesthesia/Blood Transfusion Reactions: No Reported Reaction Past Psychological History: Depression Smoking Status: Never smoker Past Alcohol Use History: None Reported Past Drug Use History: None Reported - Past Family History Mother Family Medical History: Diabetes Mellitus Father Family Medical History: Congestive Heart Failure (CHF), Coronary Artery Disease (CAD), Diabetes Mellitus, Hypertension, Myocardial Infarction (OR) Additional Family Medical History / Comment(s): father 2018 from [place] Medications and Allergies Home Medications Medication Instructions Recorded Confirmed Type Atorvastatin [Lipitor] 80 mg PO DIRECTED 10/12/22 10/12/22 History Escitalopram [Lexapro] 10 mg PO DIRECTED 10/12/22 10/12/22 History Furosemide [Lasix] 40 mg PO DIRECTED 10/12/22 10/12/22 History Insulin Aspart [NovoLOG Flexpen] 8 units SQ AC-TID 10/12/22 10/12/22 History Insulin Detemir [Levemir Flexpen] 6 units SQ BID 10/12/22 10/12/22 History Losartan [Cozaar] 100 mg PO DIRECTED 10/12/22 10/12/22 History Pantoprazole [Protonix] 40 mg PO DIRECTED 10/12/22 10/12/22 History Ticagrelor [Brilinta] 90 mg PO DIRECTED 10/12/22 10/12/22 History amLODIPine [Norvasc] 5 mg PO DIRECTED 10/12/22 10/12/22 History carvediloL [Coreg] 25 mg PO DIRECTED 10/12/22 10/12/22 History glipiZIDE XL [Glucotrol Xl] 10 mg PO DIRECTED 10/12/22 10/12/22 History metFORMIN HCL [Glucophage] 1,000 mg PO DIRECTED 10/12/22 10/12/22 History Allergies Allergy/AdvReac Type Severity Reaction Status Date / Time No Known Allergies Allergy Verified 10/12/22 10:15 Physical Exam Vitals: Vital Signs Temp Pulse Pulse Resp BP BP Pulse Ox 10/12/22 08:45 98.7 F 91 16 131/82 94 L 10/12/22 06:30 98.4 F 93 16 141/79 93 L 10/12/22 06:00 92 26 H 164/103 97 10/12/22 05:50 90 22 164/103 97 10/12/22 05:40 94 27 H 153/98 98 10/12/22 05:34 98.4 F 10/12/22 05:30 92 14 143/93 96 10/12/22 05:20 90 12 143/93 95 10/12/22 05:10 90 11 L 152/97 96 10/12/22 05:01 95 16 152/97 95 10/12/22 05:00 92 10 L 154/96 95 10/12/22 04:50 98 5 L 180/122 95 10/12/22 04:40 99 180/122 95 10/12/22 04:35 100.2 F H 10/12/22 04:30 103 H 16 140/79 96 10/12/22 04:20 100 140/79 95 10/12/22 04:14 98 18 134/81 98 10/12/22 04:10 98 134/81 95 10/12/22 04:00 98 170/97 95 10/12/22 03:50 99 18 170/97 94 L 10/12/22 03:40 103 H 166/100 97 10/12/22 03:30 97 161/98 96 10/12/22 03:20 97 161/98 96 10/12/22 03:10 96 177/109 95 10/12/22 03:00 100 17 155/102 96 10/12/22 02:50 155/102 10/12/22 02:40 93 155/102 10/12/22 02:30 96 151/101 10/12/22 02:20 93 151/101 10/12/22 02:10 92 163/108 10/12/22 02:00 91 161/107 10/12/22 01:50 92 18 161/107 10/12/22 01:40 98 21 182/116 10/12/22 01:30 105 H 12 186/119 96 10/12/22 01:20 104 H 186/119 97 10/12/22 01:10 103 H 186/119 95 10/12/22 01:00 102 H 193/123 95 10/12/22 00:50 103 H 17 193/123 95 10/12/22 00:44 98 10/12/22 00:31 99.4 F 100 18 171/110 98 Intake and Output 10/11/22 10/12/22 10/12/22 22:59 06:59 14:59 Intake Total 10 Balance 10 Intake: IV 10 Invasive Line 1 10 Other: Voiding Method Urinal Weight 113.398 kg 113.398 kg Results CBC & Chem 7: 10/12/22 01:13 10/12/22 11:30 Labs: Abnormal Lab Results - Last 24 Hours (Table) 10/12/22 10/12/22 10/12/22 Range/Units 01:13 01:13 02:26 Neutrophils # 8.4 H (1.3-7.7) k/uL Lymphocytes # 0.4 L (1.0-4.8) k/uL VBG pH (7.31-7.41) VBG pCO2 (37-51) mmHg VBG HCO3 (24-28) mmol/L Sodium 133 L (137-145) mmol/L Potassium 5.3 H (3.5-5.1) mmol/L Chloride 95 L (98-107) mmol/L Carbon Dioxide 21 L (22-30) mmol/L Creatinine 0.61 L (0.66-1.25) mg/dL Glucose 536 H* (74-99) mg/dL POC Glucose (mg/dL) (70-110) mg/dL Alkaline Phosphatase 167 H (38-126) U/L Urine Protein Trace H (Negative) Urine Glucose (UA) 4+ H (Negative) Urine Ketones 3+ H (Negative) 10/12/22 10/12/22 10/12/22 Range/Units 03:34 03:39 04:29 Neutrophils # (1.3-7.7) k/uL Lymphocytes # (1.0-4.8) k/uL VBG pH 7.44 H (7.31-7.41) VBG pCO2 29 L (37-51) mmHg VBG HCO3 19 L (24-28) mmol/L Sodium (137-145) mmol/L Potassium (3.5-5.1) mmol/L Chloride (98-107) mmol/L Carbon Dioxide (22-30) mmol/L Creatinine (0.66-1.25) mg/dL Glucose (74-99) mg/dL POC Glucose (mg/dL) 477 H 536 H (70-110) mg/dL Alkaline Phosphatase (38-126) U/L Urine Protein (Negative) Urine Glucose (UA) (Negative) Urine Ketones (Negative) 10/12/22 10/12/22 Range/Units 05:41 06:35 Neutrophils # (1.3-7.7) k/uL Lymphocytes # (1.0-4.8) k/uL VBG pH (7.31-7.41) VBG pCO2 (37-51) mmHg VBG HCO3 (24-28) mmol/L Sodium (137-145) mmol/L Potassium (3.5-5.1) mmol/L Chloride (98-107) mmol/L Carbon Dioxide (22-30) mmol/L Creatinine (0.66-1.25) mg/dL Glucose (74-99) mg/dL POC Glucose (mg/dL) 440 H 481 H (70-110) mg/dL Alkaline Phosphatase (38-126) U/L Urine Protein (Negative) Urine Glucose (UA) (Negative) Urine Ketones (Negative) Thrombosis Risk Factor Assmnt - Choose All That Apply Each Factor Represents 1 point: Obesity (BMI >25) Thrombosis Risk Factor Assessment Total Risk Factor Score: 1 Thrombosis Risk Factor Assessment Level: Low Risk Assessment and Plan Time with Patient: Greater than 30
[2022-10-12] MEDS ORDERED: LORATADINE 10 MG TAB PO STA (14:23)
[2022-10-12] MEDS ORDERED: ESCITALOPRAM 10 MG TAB PO SCH (14:30)
[2022-10-12] MEDS ORDERED: INSULIN NPH 100 UNIT/ML 10 ML VIAL SQ ONE (15:00)
[2022-10-12] MEDS ORDERED: INSULIN DETEMIR (LEVEMIR) 100 UNIT/ML SYR SQ ONE (15:00)
[2022-10-12] MEDS: carvediloL 12.5 MG TAB PO SCH ×2 (15:02→21:50)
[2022-10-12 15:41] LABS: Glucose,Whole Blood 103 mg/dL (70-110)
[2022-10-12 16:35] LABS: Glucose,Whole Blood 85 mg/dL (70-110)
[2022-10-12 17:07] LABS: African American GFR (CKD) >90 (>60 ml/min/1.73 sqM); Anion Gap 10 mmol/L; Carbon Dioxide 28 mmol/L (22-30); Chloride 101 mmol/L (98-107); Glucose 69 mg/dL (74-99); Non-African American GFR(CKD) >90 (>60 ml/min/1.73 sqM); Potassium 3.8 mmol/L (3.5-5.1); Sodium 139 mmol/L (137-145)
[2022-10-12] MEDS: amLODIPine 5 MG TAB PO SCH (17:17)
[2022-10-12] MEDS: FLUTICASONE 50MCG/SPRAY NASAL 16GM EA NOSTRIL SCH (17:17)
[2022-10-12] MEDS: INSULIN ASPART (NovoLOG) 100 UNIT/ML VIAL SQ SCH ×2 (17:22→21:51)
--- NOTE | 2022-10-12 18:00 | CDI ---
Documentation Clarification Form Date: 10/12/2022 5:34:50 PM From: Krissy Hopkins RN, CCDS Admit Date: 10/12/2022 4:18:00 AM Patient Name: Marques Bermeo Visit Number: [id number] Discharge Date: ATTENTION: The Clinical Documentation Specialists (CDI) and [facility] Coding Staff appreciate your assistance in clarifying documentation. Please respond to the clarification below the line at the bottom and electronically sign. The CDI & [facility] Coding staff will review the response and follow-up if needed. Please note: Queries are made part of the Legal Health Record. If you have any questions, please contact the author of this message via ITS. Dr. Madi Sinha There is documentation of uncontrolled hypertension in the H/P on 10/12/22. Additional clarification is requested. History/Risk Factors: Headache, Hypertension, Diabetes Mellitus, Clinical Indicators: 41-year-old male returned to ER for headaches worsening pain, intermittent blurry vision. Seen several hours prior for headache and uncontrolled hypertension refused admission. He was in mild distress secondary to headache. 10/12 VS: 171/110 100 18 99.4, 193/123 103 17, 193/123 102, 186/119 103 10/12 Labs: Na 133, K+ 5.3, BUN 14, Cr 0.61 RBS 536 ER assessment: The patient was hypertensive and tachycardic on arrival. Impression Hypertensive emergency, Headache Treatment: Cardiac/Telemetry monitoring .9NS 1,000 ML IV Bolus x 2 10/12 Compazine 10MG IVP Once 10/12, Toradol 15 MG IVP Q 6 HR PRN Labetalol Hcl 20 MG IVP Once 10/12 Labetalol Hcl 40 MG IVP Once 10/12 Norvasc 5 MG PO Daily Can you please further clarify uncontrolled hypertension? [ ] Hypertensive Emergency [ ] Hypertensive Urgency [ ] Other, please specify [ ] Unable to determine (Template Last Revised: September 2020) Hypertensive urgency, present on admission Dictated By: Bob Guerra MD Signed By: <Electronically signed by Bob Guerra MD> 10/13/22 1701 JUSTEN
[2022-10-12 20:04] LABS: Glucose,Whole Blood 285 mg/dL (70-110)
[2022-10-12] MEDS: ACETAMINOPHEN TAB 325 MG TAB PO PRN (20:05)
[2022-10-12] MEDS: HEPARIN SODIUM,PORCINE/PF 5,000 UNIT/0.5 ML SYRINGE SQ SCH (21:50)
[2022-10-12] MEDS: TICAGRELOR 90 MG TAB PO SCH (21:51)
[2022-10-12] MEDS: ATORVASTATIN 80 MG TAB PO SCH (21:51)
[2022-10-12] MEDS: KETOROLAC 15 MG/ML 1 ML VIAL IVP PRN (22:28)
[2022-10-13 06:00] LABS: Glucose,Whole Blood 243 mg/dL (70-110)
[2022-10-13] MEDS: PANTOPRAZOLE 40 MG TABLET PO SCH (06:52)
[2022-10-13] MEDS: INSULIN ASPART (NovoLOG) 100 UNIT/ML VIAL SQ SCH ×5 (06:52→21:48)
[2022-10-13] MEDS: carvediloL 12.5 MG TAB PO SCH ×2 (06:52→17:13)
[2022-10-13] MEDS ORDERED: INSULIN DETEMIR (LEVEMIR) 100 UNIT/ML SYR SQ SCH ×2 (07:00)
[2022-10-13] MEDS: ESCITALOPRAM 10 MG TAB PO SCH (08:51)
[2022-10-13] MEDS: HEPARIN SODIUM,PORCINE/PF 5,000 UNIT/0.5 ML SYRINGE SQ SCH ×2 (08:51→21:45)
[2022-10-13] MEDS: amLODIPine 5 MG TAB PO SCH (08:51)
[2022-10-13] MEDS: FLUTICASONE 50MCG/SPRAY NASAL 16GM EA NOSTRIL SCH (08:51)
[2022-10-13] MEDS: TICAGRELOR 90 MG TAB PO SCH ×2 (08:51→21:45)
[2022-10-13] MEDS: LOSARTAN 50 MG TAB PO SCH (08:51)
[2022-10-13] MEDS: FUROSEMIDE 40 MG TAB PO SCH (08:51)
[2022-10-13 10:32] LABS: African American GFR (CKD) >90 (>60 ml/min/1.73 sqM); Anion Gap 7 mmol/L; Blood Urea Nitrogen 17 mg/dL (9-20); Calcium 8.4 mg/dL (8.4-10.2); Carbon Dioxide 24 mmol/L (22-30); Chloride 105 mmol/L (98-107); Glucose 306 mg/dL (74-99); Non-African American GFR(CKD) >90 (>60 ml/min/1.73 sqM); Potassium 4.4 mmol/L (3.5-5.1); Sodium 136 mmol/L (137-145)
[2022-10-13 11:37] LABS: Glucose,Whole Blood 297 mg/dL (70-110)
[2022-10-13 12:55] VITALS: RESP 16
[2022-10-13] MEDS ORDERED: INSULIN DETEMIR (LEVEMIR) 100 UNIT/ML SYR SQ ONE ×2 (13:13→17:30)
[2022-10-13 16:39] LABS: Glucose,Whole Blood 296 mg/dL (70-110)
--- NOTE | 2022-10-13 17:01 | P.PN ---
Subjective This is a 41 year old male with medical history of hypertension, diabetes, and prior cardiac stenting, patient also has a known EF of 45%. Patient presents to the hospital with headache and also uncontrolled hypertension. He left AMA from the emergency center and returns with worsening headache and blurry vision, he also reports difficulty finding his words. He reports headache left temporal region ongoing for about 1 day, he does have sinus congestion. He does appear mildly confused on assessment. He reports noncompliance with insulin outpatient and states that his blood glucose usually runs around 400 at home. He does not follow with a PCP, and doesn't remember who he has seen in the past. He had brain CT angiography done which is negative for acute changes or hemorrhage. He does present with mild low grade fever of 99.4 and also blood pressure of 171/110. He also has blood glucose of 536 on admission with positive ketones in urine and anion gap of 17. Patient will be treated for diabetic ketoacidosis. He has had T max of 100.2 since admission. Acetone will be checked and patients blood glucose remains in the 480s which patient will be started on insulin gtt DKA protocol. Blood pressure has improved. Covid is negative. 10/13/2022 Patient today was still feeling not well although he was improving gradually, he had severe headache overnight and CTA of the head and neck was negative for acute process Also he had fever on admission, no more fever since then, is fully awake and oriented, no other complaints, he started picking up the diet, however his glucose is still uncontrolled and was more than 300 today and we had to double his insulin dose and still close monitoring. Currently he is on Levemir 20 units and NovoLog 7 units with meals. Also his blood pressure was elevated was better controlled on multiple medicatio ns including losartan 50 mg, Lasix 40 mg, Coreg 25 mg and Norvasc 5 mg Also his dose of brilinta Currently his(Headache improved and we will keep monitoring Objective - Vital Signs Vital signs: Vital Signs Temp 98.4 F 10/13/22 04:00 Pulse 73 10/13/22 04:00 Resp 18 10/13/22 04:00 BP 135/87 10/13/22 04:00 Pulse Ox 97 10/13/22 04:00 FiO2 Intake & Output 10/12/22 10/13/22 10/13/22 18:59 06:59 18:59 Intake Total 10 118 Balance 10 118 Weight 113.398 kg Intake: IV 10 Invasive Line 1 10 Oral 118 Other: Voiding Method Urinal # Voids 1 1 - Exam GENERAL: The patient is alert and oriented x3, not in any acute distress. Well developed, well nourished. HEENT: Pupils are round and equally reacting to light. EOMI. No scleral icterus. No conjunctival pallor. Normocephalic, atraumatic. No pharyngeal erythema. No thyromegaly. CARDIOVASCULAR: S1 and S2 present. No murmurs, rubs, or gallops. PULMONARY: Chest is clear to auscultation, no wheezing or crackles. ABDOMEN: Soft, nontender, nondistended, normoactive bowel sounds. No palpable organomegaly. MUSCULOSKELETAL: No joint swelling or deformity. EXTREMITIES: No cyanosis, clubbing, or pedal edema. NEUROLOGICAL: Gross neurological examination did not reveal any focal deficits. SKIN: No rashes. no petechiae. - Labs CBC & Chem 7: 10/12/22 01:13 10/13/22 09:55 Labs: Abnormal Lab Results - Last 24 Hours (Table) 10/12/22 10/12/22 10/12/22 Range/Units 10:43 11:30 11:59 Sodium 135 L (137-145) mmol/L Creatinine (0.66-1.25) mg/dL Glucose 309 H (74-99) mg/dL POC Glucose (mg/dL) 326 H 275 H (70-110) mg/dL 10/12/22 10/12/22 10/12/22 Range/Units 13:00 14:00 16:21 Sodium (137-145) mmol/L Creatinine 0.64 L (0.66-1.25) mg/dL Glucose 69 L (74-99) mg/dL POC Glucose (mg/dL) 196 H 156 H (70-110) mg/dL 10/12/22 10/13/22 Range/Units 20:03 05:58 Sodium (137-145) mmol/L Creatinine (0.66-1.25) mg/dL Glucose (74-99) mg/dL POC Glucose (mg/dL) 285 H 243 H (70-110) mg/dL Assessment and Plan Assessment: Hypertensive urgency, present on admission. Patient currently improved Headache secondary to above, resolved, CTA of the head is negative for acute process Diabetic ketoacidosis, resolved Diabetes mellitus with hyperglycemia, Altered mental status from acute metabolic encephalopathy secondary to DKA. Migraine, currently stable Diabetic neuropathy History of coronary artery disease with prior cardiac stenting Ischemic cardiomyopathy and chronic systolic heart failure with no acute exacerbation Hyperlipidemia Elevated ALT Anxiety/Depression GERD Medication noncompliance Plan: Continue monitoring Increase Levemir 20 units daily and NovoLog 7 units with meals and insulin sliding scale, keep monitoring her glucose Continue with losartan, Lasix, Coreg and Norvasc and monitor blood pressure Labs and medication were reviewed.. Continue same treatment. Continue with symptomatic treatment. Resume home medication. Monitor labs and vitals. DVT and GI prophylaxis. Further recommendations as per clinical course of the patient DVT prophylaxis: Subcutaneous heparin GI Prophylaxis: Ppi patient is improving slowly and gradually
[2022-10-13] MEDS: ACETAMINOPHEN TAB 325 MG TAB PO PRN (17:17)
[2022-10-13] MEDS ORDERED: INSULIN ASPART (NovoLOG) 100 UNIT/ML VIAL SQ SCH (17:30)
[2022-10-13 20:00] LABS: Glucose,Whole Blood 285 mg/dL (70-110)
[2022-10-13] MEDS: ATORVASTATIN 80 MG TAB PO SCH (21:45)
[2022-10-13] MEDS: KETOROLAC 15 MG/ML 1 ML VIAL IVP PRN (21:49)
[2022-10-14 05:51] LABS: Glucose,Whole Blood 192 mg/dL (70-110)
[2022-10-14] MEDS ORDERED: INSULIN DETEMIR (LEVEMIR) 100 UNIT/ML SYR SQ SCH ×3 (07:00)
[2022-10-14] MEDS: ESCITALOPRAM 10 MG TAB PO SCH (09:06)
[2022-10-14] MEDS: LOSARTAN 50 MG TAB PO SCH (09:06)
[2022-10-14] MEDS: TICAGRELOR 90 MG TAB PO SCH (09:06)
[2022-10-14] MEDS: FUROSEMIDE 40 MG TAB PO SCH (09:06)
[2022-10-14] MEDS: amLODIPine 5 MG TAB PO SCH (09:06)
[2022-10-14] MEDS: carvediloL 12.5 MG TAB PO SCH (09:06)
[2022-10-14] MEDS: INSULIN ASPART (NovoLOG) 100 UNIT/ML VIAL SQ SCH ×2 (09:07→12:26)
[2022-10-14] MEDS: HEPARIN SODIUM,PORCINE/PF 5,000 UNIT/0.5 ML SYRINGE SQ SCH (09:07)
[2022-10-14] MEDS: FLUTICASONE 50MCG/SPRAY NASAL 16GM EA NOSTRIL SCH (09:08)
[2022-10-14] MEDS: PANTOPRAZOLE 40 MG TABLET PO SCH (09:09)
[2022-10-14 11:40] LABS: Glucose,Whole Blood 268 mg/dL (70-110)
[2022-10-14 14:32] VITALS: BP 156/97; PULSE 78; TEMP 98.2
== END 2022-10-14 15:54 | disposition home or self-care (01) | DRG 637 ==
LOC: EC 00:19 → 4SSUR 04:18 → 3SCARD 05:49
PROVIDERS: ADMIT Hospitalist; ATTEND Hospitalist
DX: E11.10 Type 2 diabetes mellitus with ketoacidosis without coma (principal); G93.41 Metabolic encephalopathy; E87.1 Hypo-osmolality and hyponatremia; I16.1 Hypertensive emergency; I50.22 Chronic systolic (congestive) heart failure; Z79.85 Long-term (current) use of injectable non-insulin antidiabetic drugs; Z79.84 Long term (current) use of oral hypoglycemic drugs; E78.5 Hyperlipidemia, unspecified; E86.0 Dehydration; E87.5 Hyperkalemia; F32.A Depression, unspecified; F41.9 Anxiety disorder, unspecified; G43.909 Migraine, unspecified, not intractable, without status migrainosus; I11.0 Hypertensive heart disease with heart failure; E11.40 Type 2 diabetes mellitus with diabetic neuropathy, unspecified; T38.3X6A Underdosing of insulin and oral hypoglycemic [antidiabetic] drugs, initial encounter; I25.10 Atherosclerotic heart disease of native coronary artery without angina pectoris; I25.2 Old myocardial infarction; I25.5 Ischemic cardiomyopathy; Z68.31 Body mass index [BMI] 31.0-31.9, adult; E66.9 Obesity, unspecified; J01.90 Acute sinusitis, unspecified; K21.9 Gastro-esophageal reflux disease without esophagitis; Z20.822 Contact with and (suspected) exposure to COVID-19; Z28.310 Unvaccinated for COVID-19; Z28.21 Immunization not carried out because of patient refusal; Z71.3 Dietary counseling and surveillance; Z95.5 Presence of coronary angioplasty implant and graft; Z79.82 Long term (current) use of aspirin; Z83.3 Family history of diabetes mellitus; Z91.128 Patient's intentional underdosing of medication regimen for other reason; Z82.49 Family history of ischemic heart disease and other diseases of the circulatory system
CPT/HCPCS: 36415; 70496; 70498; 80048; 80051; 80053; 81003; 82009; 82565; 82803; 82947; 83036; 83735; 84100; 84484; 84520; 85025; 87635; 93005; 96361; 96374; 96375; 96376; 99285

== ENCOUNTER 2024-01-23 08:10 | Emergency (ER) | payer BC ==
[2024-01-23 08:13] VITALS: RESP 18; TEMP 98.4
[2024-01-23] MEDS: SODIUM CHLORIDE 0.9% 1,000 ML IV STA (09:11)
[2024-01-23 09:17] LABS: Basophils # (A) 0.1 k/uL (0-0.2); Basophils % (A) 1 %; Eosinophils # (A) 0.1 k/uL (0-0.7); Eosinophils % (A) 1 %; HCT 47.2 % (39.0-53.0); HGB 14.8 gm/dL (13.0-17.5); Lymphocytes % (A) 11 %; MCH 28.4 pg (25.0-35.0); MCHC 31.3 g/dL (31.0-37.0); MCV 90.7 fL (80.0-100.0); Mean Platelet Volume 8.7; Monocytes # (A) 0.3 k/uL (0-1.0); Monocytes % (A) 4 %; Neutrophils # (A) 7.3 k/uL (1.3-7.7); Neutrophils % (A) 82 %; Platelet Count 259 k/uL (150-450); RDW 13.8 % (11.5-15.5); WBC 8.9 k/uL (3.8-10.6)
--- NOTE | 2024-01-23 09:27 | CT ---
EXAMINATION TYPE: CT brain wo con DATE OF EXAM: 01/23/2024 COMPARISON: 10/11/2022 HISTORY: 43-year-old male hypertension and Headache TECHNIQUE: Examination was done in axial plane without intravenous contrast. Coronal and sagittal r econstructions performed. CT DLP: 1242.8 mGycm Automated exposure control for dose reduction was used. FINDINGS: There is no evidence of acute intracranial hemorrhage, acute ischemic changes, mass, mass-effect, or extra-axial fluid collection. There is no effacement of cerebral sulci or basal subarachnoid cister ns. There is no hydrocephalus. There is no midline shift. Olivares-white matter distinction is preserv ed. Mild mucosal thickening floors of the maxillary sinuses. Mastoid air cells well pneumatized. Orbits a nd globes are intact. IMPRESSION: No acute intracranial abnormality seen.
--- NOTE | 2024-01-23 09:39 | ED ---
General Adult HPI - General Chief complaint: Headache Stated complaint: Nausea,pain in R eye/head/trouble speaking Time Seen by Provider: 01/23/24 08:17 Source: patient Mode of arrival: ambulatory Limitations: no limitations - History of Present Illness Initial comments: Dictation was produced using [employer] dictation software. please excuse any grammatical, word or spelling errors. Chief Complaint: 43-year-old male with headache History of Present Illness: Patient is a 43-year-old male he has multiple comorbidities including diabetes, dyslipidemia and hypertension. Patient states that he had a headache that woke him up it was bifrontal. Patient stated was severe. It woke him up at 2:30 AM. Patient does not complain of much history of headaches. He does have elevated blood pressure that is being managed outpatient by his primary care doctor. States that his blood pressure is generally pretty high in the 200s normally. Girlfriend at the bedside states that his sugar is also elevated. The ROS documented in this emergency department record has been reviewed and confirmed by me. Those systems with pertinent positive or negative responses have been documented in the HPI. All other systems are other negative and/or noncontributory. - Related Data Home Medications Medication Instructions Recorded Confirmed Atorvastatin [Lipitor] 80 mg PO DIRECTED 10/12/22 10/12/22 Escitalopram [Lexapro] 10 mg PO DIRECTED 10/12/22 10/12/22 Furosemide [Lasix] 40 mg PO DIRECTED 10/12/22 10/12/22 Insulin Aspart [NovoLOG Flexpen] 8 units SQ AC-TID 10/12/22 10/12/22 Insulin Detemir [Levemir Flexpen] 6 units SQ BID 10/12/22 10/12/22 Losartan [Cozaar] 100 mg PO DIRECTED 10/12/22 10/12/22 Pantoprazole [Protonix] 40 mg PO DIRECTED 10/12/22 10/12/22 Ticagrelor [Brilinta] 90 mg PO DIRECTED 10/12/22 10/12/22 amLODIPine [Norvasc] 5 mg PO DIRECTED 10/12/22 10/12/22 carvediloL [Coreg] 25 mg PO DIRECTED 10/12/22 10/12/22 glipiZIDE XL [Glucotrol XL] 10 mg PO DIRECTED 10/12/22 10/12/22 metFORMIN HCL [Glucophage] 1,000 mg PO DIRECTED 10/12/22 10/12/22 Allergies Allergy/AdvReac Type Severity Reaction Status Date / Time No Known Allergies Allergy Verified 01/23/24 08:13 Review of Systems ROS Statement: Those systems with pertinent positive or pertinent negative responses have been documented in the HPI. ROS Other: All systems not noted in ROS Statement are negative. Past Medical History Past Medical History: Diabetes Mellitus, Hyperlipidemia, Hypertension Additional Past Medical History / Comment(s): neuropathy Last Myocardial Infarction Date:: 11/20/2020 History of Any Multi-Drug Resistant Organisms: ESBL Date of last positivie culture/infection: 03/03/21 E. coli ESBL MDRO Source:: Left Foot Past Surgical History: Back Surgery, Hernia Repair Additional Past Surgical History / Comment(s): 4 cardiac stents 11/20/2020, 1 cardiac stent 11/23/2020 Past Anesthesia/Blood Transfusion Reactions: No Reported Reaction Past Psychological History: Depression Smoking Status: Never smoker Past Alcohol Use History: None Reported Past Drug Use History: None Reported - Past Family History Mother Family Medical History: Diabetes Mellitus Father Family Medical History: Congestive Heart Failure (CHF), Coronary Artery Disease (CAD), Diabetes Mellitus, Hypertension, Myocardial Infarction ([place]) Additional Family Medical History / Comment(s): father 2018 from [place] General Exam - General Exam Comments Initial Comments: PHYSICAL EXAM: General Impression: Alert and oriented x3, not in acute distress HEENT: Normocephalic atraumatic, extra-ocular movements intact, pupils equal and reactive to light bilaterally, mucous membranes moist. Cardiovascular: Heart regular rate and rhythm Chest: Able to complete full sentences, no retractions, no tachypnea Abdomen: abdomen soft, non-tender, non-distended, no organomegaly Musculoskeletal: Pulses present and equal in all extremities, no peripheral edema Motor: no focal deficits noted Neurological: CN II-XII grossly intact, no focal motor or sensory deficits noted Skin: Intact with no visualized rashes Psych: Normal affect and mood Limitations: no limitations Course Vital Signs 01/23/24 01/23/24 08:11 12:15 Temperature 98.4 F Pulse Rate 82 89 Respiratory 18 18 Rate Blood Pressure 217/152 182/133 O2 Sat by Pulse 93 L 95 Oximetry Medical Decision Making - Medical Decision Making Was pt. sent in by a medical professional or institution (, PA, ROD MILL OPERATOR, urgent care, hospital, or [facility]...) When possible be specific @ -[No] Did you speak to anyone other than the patient for history (EMS, parent, family, police, friend...)? What history was obtained from this source @ -[No] Did you review nursing and triage notes (agree or disagree)? Why? @ -[I reviewed and agree with nursing and triage notes] Were old charts reviewed (outside hosp., previous admission, EMS record, old EKG, old radiological studies, urgent care reports/EKG's, [facility] records)? Report findings @ -[No old charts were reviewed] Differential Diagnosis (chest pain, altered mental status, abdominal pain women, abdominal pain men, vaginal bleeding, musculoskeletal, weakness, fever, dyspnea, syncope, headache, dizziness, GI bleed, back pain, seizure, CVA, palpatations, mental health)? @ -Differential Headache: Migraine, tension, cluster, carbon monoxide, central venous thrombosis, pension karma temporal arteritis, acute closure glaucoma, intercranial hemorrhage, mastoiditis, sinusitis, head injury, this is not meant to be an all-inclusive list. EKG interpreted by me (3pts min.). @ -My EKG interpretation: Ventricular rate 84, sinus rhythm,. 121, cures 93, QTc 413. No RI prolongation, no QTC prolongation, no ST or T-wave changes noted. EKG compared to [default value] showing no changes. Overall, this EKG is unr emarkable X-rays interpreted by me (1pt min.). @ -[None done] CT interpreted by me (1pt min.). @ -CT brain shows no acute intracranial bleed U/S interpreted by me (1pt. min.). @ -[None done] What testing was considered but not performed or refused? (CT, X-rays, U/S, labs)? Why? @ -[None] What meds were considered but not given or refused? Why? @ -[None] Was smoking cessation discussed for >3mins.? @ -[No] Were there social determinants of health that impacted care today? How? (Homelessness, low income, unemployed, alcoholism, drug addiction, transportation, low edu. Level, literacy, decrease access to med. care, usp, rehab)? @ -[No] Was there de-escalation of care discussed even if they declined (Discuss DNR or withdrawal of care, Hospice)? DNR status @ -[No] What co-morbidities impacted this encounter? (DM, HTN, Smoking, COPD, CAD, Cancer, CVA, ARF, Chemo, Hep., AIDS, mental health diagnosis, sleep apnea, morbid obesity)? @ -[None] Was patient admitted / discharged? Hospital course, mention meds given and route, prescriptions, significant lab abnormalities, going to OR and other pertinent info. @ -Laboratory evaluation obtained. CBC, coag panel metabolic panel is within acceptable limits. Patient has hypomagnesia 1.5 given some IV magnesium to replenish his hypomagnesemia along with improving his headache. CT scan the brain is negative. Given that patient had headache along with elevated blood pressure he was counseled on when lumbar puncture should be performed. He is pretty close to the 6-hour window of when the CT scan was performed after the onset of his symptoms. He was offered lumbar puncture and declined states that he feels significantly improved once to be discharged. Patient reevaluated 1221 following stable condition. Patient reports that his headache feels improved. All questions answered. Patient agreeable for discharge. Did you discuss the management of the patient with other professionals (professionals i.e. , PA, ROD MILL OPERATOR, lab, RT, psych nurse, hospice social worker, final assembly worker, teacher, maritime officer, nurse case management)? Give summary @ -[No] Was critical care preformed (if so, how long)? @ -[No] Undiagnosed new problem with uncertain prognosis? @ -[No] Drug Therapy requiring intensive monitoring for toxicity (Heparin, Nitro, Insulin, Cardizem)? @ -[No] Were any procedures done? @ -[No] Diagnosis/symptom? Acute, or Chronic, or Acute on Chronic? Uncomplicated (without systemic symptoms) or Complicated (systemic symptoms)? @ -Headache, hypertension Side effects of treatment? @ -[No] Exacerbation, Progression, or Severe Exacerbation? @ -[No] Poses a threat to life or bodily function? How? (Chest pain, [place], [place], pneumonia, PE, COPD, DKA, ARF, appy, cholecystitis, CVA, Diverticulitis, Homicidal, Suicidal, threat to staff... and all critical care pts) @ -[No] - Lab Data Result diagrams: 01/23/24 09:00 01/23/24 10:27 Lab Results 01/23/24 01/23/24 01/23/24 Range/Units 09:00 09:51 10:27 WBC 8.9 (3.8-10.6) k/uL RBC 5.20 (4.30-5.90) m/uL Hgb 14.8 (13.0-17.5) gm/dL Hct 47.2 (39.0-53.0) % MCV 90.7 (80.0-100.0) fL MCH 28.4 (25.0-35.0) pg MCHC 31.3 (31.0-37.0) g/dL RDW 13.8 (11.5-15.5) % Plt Count 259 (150-450) k/uL MPV 8.7 Neutrophils % 82 % Lymphocytes % 11 % Monocytes % 4 % Eosinophils % 1 % Basophils % 1 % Neutrophils # 7.3 (1.3-7.7) k/uL Lymphocytes # 1.0 (1.0-4.8) k/uL Monocytes # 0.3 (0-1.0) k/uL Eosinophils # 0.1 (0-0.7) k/uL Basophils # 0.1 (0-0.2) k/uL PT 11.8 (10.0-12.5) sec INR 1.1 (<1.2) APTT 25.1 (22.0-30.0) sec Sodium 135 L (137-145) mmol/L Potassium 4.0 (3.5-5.1) mmol/L Chloride 104 (98-107) mmol/L Carbon Dioxide 23 (22-30) mmol/L Anion Gap 8 mmol/L BUN 10 (9-20) mg/dL Creatinine 0.44 L (0.66-1.25) mg/dL Est GFR (CKD-EPI)AfAm >90 (>60 ml/min/1.73 sqM) Est GFR (CKD-EPI)NonAf >90 (>60 ml/min/1.73 sqM) Glucose 337 H (74-99) mg/dL Calcium 8.4 (8.4-10.2) mg/dL Magnesium 1.5 L (1.6-2.3) mg/dL Total Bilirubin 1.3 (0.2-1.3) mg/dL AST 38 (17-59) U/L ALT 25 (4-49) U/L Alkaline Phosphatase 175 H (38-126) U/L Total Protein 6.5 (6.3-8.2) g/dL Albumin 3.5 (3.5-5.0) g/dL Disposition Clinical Impression: Headache Disposition: HOME SELF-CARE Condition: Good Instructions (If sedation given, give patient instructions): Acute Headache (ED) Is patient prescribed a controlled substance at d/c from ED?: No Referrals: Juancho Parada MD [Primary Care Provider] - 1-2 days Time of Disposition: 12:23
[2024-01-23] MEDS: ONDANSETRON 4 MG/2 ML VIAL IVP STA ×2 (09:47→11:31)
[2024-01-23] MEDS: diphenhydrAMINE 50 MG/ML 1 ML VIAL IVP STA (09:47)
[2024-01-23] MEDS: KETOROLAC 15 MG/ML 1 ML VIAL IVP STA (09:48)
[2024-01-23 10:15] LABS: INR 1.1 (<1.2); Partial Thromboplastin Time 25.1 sec (22.0-30.0); Prothrombin Time 11.8 sec (10.0-12.5)
[2024-01-23 10:48] LABS: ALT 25 U/L (4-49); African American GFR (CKD) >90 (>60 ml/min/1.73 sqM); Albumin 3.5 g/dL (3.5-5.0); Anion Gap 8 mmol/L; Blood Urea Nitrogen 10 mg/dL (9-20); Calcium 8.4 mg/dL (8.4-10.2); Carbon Dioxide 23 mmol/L (22-30); Chloride 104 mmol/L (98-107); Glucose 337 mg/dL (74-99); Non-African American GFR(CKD) >90 (>60 ml/min/1.73 sqM); Sodium 135 mmol/L (137-145); Total Bilirubin 1.3 mg/dL (0.2-1.3); Total Protein 6.5 g/dL (6.3-8.2)
[2024-01-23 10:49] LABS: AST 38 U/L (17-59); Alkaline Phosphatase 175 U/L (38-126)
[2024-01-23 10:50] LABS: Magnesium 1.5 mg/dL (1.6-2.3)
[2024-01-23] MEDS: MAGNESIUM SULFATE-D5W PMX 1 GM in DEXTROSE/WATER 1 100ML.BAG IVPB SCH (11:29)
[2024-01-23 12:17] VITALS: BP 182/133; PULSE 89
== END 2024-01-23 13:18 | disposition home or self-care (01) ==
LOC: EC 08:10
DX: R51.9 Headache, unspecified (principal); I10 Essential (primary) hypertension; Z79.899 Other long term (current) drug therapy
CPT/HCPCS: 99284; 96374; 96375 ×2; 96376; 96361; 36415; 93005; 80053; 83735; 85025; 85610; 85730; 70450; J1200; J2405; J3475; J1885

== ENCOUNTER 2024-03-25 17:34 | Emergency (ER) | payer BC ==
[2024-03-25 17:47] LABS: Glucose,Whole Blood 358 mg/dL (70-110)
[2024-03-25] MEDS ORDERED: VANCOMYCIN IV PER PHARMACY 1 EACH MISC MISCELLANE PRN (18:30)
[2024-03-25] MEDS: ONDANSETRON 4 MG/2 ML VIAL IVP STA (19:41)
[2024-03-25] MEDS: MORPHINE SULFATE 4 MG/ML SYRINGE IVP STA (19:44)
[2024-03-25] MEDS: PANTOPRAZOLE 40 MG/10 ML VIAL IVP STA (19:48)
[2024-03-25] MEDS: CEFEPIME 2 GM in SODIUM CHLORIDE 0.9% 100 ML IVPB STA ×2 (19:48→19:57)
[2024-03-25] MEDS: SODIUM CHLORIDE 0.9% 1,000 ML IV STA (19:49)
[2024-03-25 20:25] LABS: ALT 29 U/L (4-49); African American GFR (CKD) >90 (>60 ml/min/1.73 sqM); Amylase <30 U/L (30-110); Anion Gap 13 mmol/L; Blood Urea Nitrogen 23 mg/dL (9-20); Calcium 8.9 mg/dL (8.4-10.2); Carbon Dioxide 23 mmol/L (22-30); Chloride 93 mmol/L (98-107); Glucose 374 mg/dL (74-99); Lipase 18 U/L (23-300); Non-African American GFR(CKD) >90 (>60 ml/min/1.73 sqM); Sodium 129 mmol/L (137-145)
[2024-03-25 20:32] LABS: Basophils % (A) 1 %; Eosinophils % (A) 0 %; HCT 51.1 % (39.0-53.0); HGB 16.8 gm/dL (13.0-17.5); Lymphocytes # (A) 0.5 k/uL (1.0-4.8); Lymphocytes % (A) 7 %; MCH 29.1 pg (25.0-35.0); MCV 88.4 fL (80.0-100.0); Monocytes # (A) 0.3 k/uL (0-1.0); Monocytes % (A) 4 %; Neutrophils # (A) 6.6 k/uL (1.3-7.7); Neutrophils % (A) 88 %; Platelet Count 174 k/uL (150-450); RBC 5.78 m/uL (4.30-5.90); RDW 14.9 % (11.5-15.5); WBC 7.5 k/uL (3.8-10.6)
[2024-03-25 20:34] LABS: AST 65 U/L (17-59); Albumin 3.6 g/dL (3.5-5.0); Potassium 4.6 mmol/L (3.5-5.1); Total Bilirubin 3.6 mg/dL (0.2-1.3); Total Protein 6.8 g/dL (6.3-8.2)
[2024-03-25] MEDS: LACTATED RINGERS 1,000 ML BAG IV STA (20:34)
[2024-03-25 20:35] LABS: Alkaline Phosphatase 244 U/L (38-126)
[2024-03-25] MEDS: metroNIDAZOLE-NS PMX 500 MG in SALINE 1 100ML.BAG IVPB STA (20:36)
[2024-03-25] MEDS: ACETAMINOPHEN TAB 500 MG TAB PO STA (20:39)
[2024-03-25 20:48] LABS: INR 1.5 (<1.2); Partial Thromboplastin Time 32.3 sec (22.0-30.0); Prothrombin Time 15.9 sec (10.0-12.5)
--- NOTE | 2024-03-25 22:26 | XR ---
EXAMINATION TYPE: XR chest 2V DATE OF EXAM: 03/25/2024 9:24 PM CLINICAL INDICATION: Male, 43 years old with history of a fib; [facility] COMPARISON: Chest radiographs from 07/08/2021 TECHNIQUE: XR chest 2V Frontal view of the chest. FINDINGS: Lungs/Pleura: There is no evidence of pleural effusion, focal consolidation, or pneumothorax. Pulmonary vascularity: Pulmonary vascular congestion. Heart/mediastinum: Cardiomediastinal silhouette is enlarged. Musculoskeletal: No acute osseous pathology. Other findings: None IMPRESSION: Mild cardiomegaly and pulmonary edema.
[2024-03-25] MEDS: VANCOMYCIN 2,250 MG in SODIUM CHLORIDE 0.9% 500 ML 500 ML IVPB SCH (22:40)
--- NOTE | 2024-03-25 22:55 | CT ---
EXAMINATION TYPE: CT angio abdomen pelvis CT DLP: 4975.3 mGycm, Automated exposure control for dose reduction was used. DATE OF EXAM: 03/25/2024 9:27 PM COMPARISON: None. . CLINICAL INDICATION:Male, 43 years old with history of GI bleed; [facility], GI Bleed TECHNIQUE: Multiple thin slice sub-millimeter images were obtained before and after administration of contrast. 3-D reconstructed images and maximum intensity projection images were obtained. CT angio abdomen pelvis CT Contrast: Contrast used:100 ml mL of Isovue 370 with IV Contrast, Oral contrast used: without Oral Contrast None FINDINGS: CTA Abdomen and pelvis: The abdominal aorta does not demonstrate aneurysmal dilatation. Atherosclero tic plaquing is identified within the abdominal aorta. The origins of the superior mesenteric artery , renal arteries, inferior mesenteric artery, and celiac axis are patent. The iliac vessels are norm al in morphology. LOWER CHEST: Trace pericardial effusion partially visualized. Trace right pleural effusion.. LIVER: Unremarkable GALLBLADDER AND BILE DUCTS: Unremarkable. PANCREAS: Atrophy of the head and neck. SPLEEN: Unremarkable. ADRENAL GLANDS: Unremarkable. KIDNEYS AND URETERS: No evidence of hydronephrosis or renal calculus. The ureters are unremarkable. PELVIS BLADDER: Unremarkable REPRODUCTIVE: Unremarkable. ABDOMEN & PELVIS STOMACH AND BOWEL: Stomach is grossly unremarkable. There is circumferential wall thickening of the p artially visualized lower esophagus. The small bowel is of normal caliber. There is no contrast extra vasation within the lumen of the gastrointestinal tract. No evidence of bowel obstruction. PERITONEUM: No evidence of pneumoperitoneum. Trace perihepatic and pelvic ascites. MUSCULOSKELETAL: Subtle compression deformity involving the L1 vertebral body superior endplate with some sclerotic changes. No other acute osseous abnormalities. LYMPH NODES: Multiple lymph nodes are seen scattered throughout the abdomen and in the bilateral ingu inal region. The most conspicuous of these are seen within the left lower quadrant of the abdomen laci suring at least 1.4 cm in short axis. SOFT TISSUE/ABDOMINAL WALL: Diffuse soft tissue edema most pronounced within the flank tissues bilate rally. IMPRESSION 1. No CT evidence for gastrointestinal hemorrhage. 2. Trace right pleural and trace pericardial effusions, ascites, soft tissue anasarca is concerning for third spacing versus volume overload. 3. Circumferential wall thickening of the partially visualized lower esophagus may relate to an infla mmatory process. Correlate for any known esophageal disease and clinical history. Further workup may be warranted. 4. Scattered lymphadenopathy throughout the abdomen and retroperitoneum with cluster of nonenlarged l ymph nodes seen in the bilateral inguinal region. 5. Subtle compression deformity of the L1 vertebral body superior endplate is appreciated with no ret ropulsion. This favors a chronic process. Correlate with any history of trauma and point tenderness.
--- NOTE | 2024-03-25 23:15 | ED ---
General Adult HPI - General Chief complaint: Nausea/Vomiting/Diarrhea Stated complaint: Vomiting Time Seen by Provider: 03/25/24 17:55 Source: patient, family Mode of arrival: ambulatory Limitations: no limitations - History of Present Illness Initial comments: Patient is a 43-year-old male presenting today for 2 days of nausea, vomiting, diarrhea and right lower extremity pain and swelling. Patient states began 2 days ago he began having multiple episodes of black emesis. Not grossly bloody. Black loose stools. No blood thinners. Does take aspirin. As well as NSAIDs for chronic pain. Endorses mild lightheadedness. Endorses fevers. Right lower extremity erythema and swelling - Related Data Home Medications Medication Instructions Recorded Confirmed Atorvastatin [Lipitor] 80 mg PO DIRECTED 10/12/22 10/12/22 Escitalopram [Lexapro] 10 mg PO DIRECTED 10/12/22 10/12/22 Furosemide [Lasix] 40 mg PO DIRECTED 10/12/22 10/12/22 Insulin Aspart [NovoLOG Flexpen] 8 units SQ AC-TID 10/12/22 10/12/22 Insulin Detemir [Levemir Flexpen] 6 units SQ BID 10/12/22 10/12/22 Losartan [Cozaar] 100 mg PO DIRECTED 10/12/22 10/12/22 Pantoprazole [Protonix] 40 mg PO DIRECTED 10/12/22 10/12/22 Ticagrelor [Brilinta] 90 mg PO DIRECTED 10/12/22 10/12/22 amLODIPine [Norvasc] 5 mg PO DIRECTED 10/12/22 10/12/22 carvediloL [Coreg] 25 mg PO DIRECTED 10/12/22 10/12/22 glipiZIDE XL [Glucotrol XL] 10 mg PO DIRECTED 10/12/22 10/12/22 metFORMIN HCL [Glucophage] 1,000 mg PO DIRECTED 10/12/22 10/12/22 Allergies Allergy/AdvReac Type Severity Reaction Status Date / Time No Known Allergies Allergy Verified 01/23/24 08:13 Review of Systems ROS Statement: Those systems with pertinent positive or pertinent negative responses have been documented in the HPI. ROS Other: All systems not noted in ROS Statement are negative. Constitutional: Reports: fever, chills Respiratory: Denies: dyspnea Cardiovascular: Denies: chest pain Gastrointestinal: Reports: abdominal pain, nausea, vomiting, diarrhea, melena. Denies: constipation, hematemesis, hematochezia Genitourinary: Denies: hematuria Past Medical History Past Medical History: Coronary Artery Disease (CAD), Diabetes Mellitus, Hyperlipidemia, Hypertension Additional Past Medical History / Comment(s): neuropathy Last Myocardial Infarction Date:: 11/20/2020 History of Any Multi-Drug Resistant Organisms: ESBL Date of last positivie culture/infection: 03/03/21 E. coli ESBL MDRO Source:: Left Foot Past Surgical History: Back Surgery, Heart Catheterization With Stent, Hernia Repair Additional Past Surgical History / Comment(s): 4 cardiac stents 11/20/2020, 1 cardiac stent 11/23/2020 Past Anesthesia/Blood Transfusion Reactions: No Reported Reaction Past Psychological History: Depression Smoking Status: Never smoker Past Alcohol Use History: None Reported Past Drug Use History: None Reported - Past Family History Mother Family Medical History: Diabetes Mellitus Father Family Medical History: Congestive Heart Failure (CHF), Coronary Artery Disease (CAD), Diabetes Mellitus, Hypertension, Myocardial Infarction ([place]) Additional Family Medical History / Comment(s): father 2018 from [place] General Exam - General Exam Comments Initial Comments: PE: CONSTITUTIONAL: [PERRL, arrival, ill-appearing, in no distress SKIN: Warm, dry, pallor, no jaundice, hives or petechiae EYES: Pupils are equally round, extraocular movements intact without nystagmus, clear conjunctiva, non-icteric sclera HENT: Normocephalic, atraumatic, moist mucus membranes, oropharynx clear without exudates NECK: , Full range of motion, normal appearance PULMONARY: Clear to auscultation without wheezes, rhonchi, or rales, normal excursion, no accessory muscle use and no stridor CARDIOVASCULAR: Regular rate, rhythm, normal S1 and S2. No appreciated murmurs, rubs or gallops. Strong radial pulses with intact distal perfusion. No lower extremity edema GASTROINTESTINAL: Soft, minimal epigastric tenderness to palpation, r, non- distended, no palpable masses, no rebound or guarding. No hepatosplenomegaly MUSCULOSKELETAL: Circumferential erythema and mild 1+ edema in the distal right lower extremity, all other extremities have no gross deformity, no edema, redness, or swelling. NEUROLOGIC:_a/o x 3, GCS 15, normal mentation and speech. Moves all extremities x 4 without motor or sensory deficit PSYCHIATRIC:_normal mood and affect, thought process is clear and linear Limitations: no limitations Course Vital Signs 03/25/24 03/25/24 03/25/24 17:41 19:12 20:24 Temperature 98.2 F 98.2 F 100.4 F H Pulse Rate 111 H 103 H 109 H Respiratory 24 20 20 Rate Blood Pressure 152/105 133/93 137/107 O2 Sat by Pulse 95 96 92 L Oximetry 03/25/24 03/25/24 03/26/24 22:00 23:00 00:00 Temperature 100.4 F H Pulse Rate 117 H 121 H 100 Respiratory 18 18 19 Rate Blood Pressure 126/87 103/80 94/71 O2 Sat by Pulse 94 L 97 97 Oximetry 03/26/24 00:42 Temperature 98.5 F Pulse Rate 86 Respiratory 17 Rate Blood Pressure 100/76 O2 Sat by Pulse 99 Oximetry EKG Findings - EKG Comments: EKG Findings:: Atrial fibrillation with RVR, rate 120 bpm, QRS 98 ms, QT/QTc 329/402 ms, normal axis, no ST elevation or depression Medical Decision Making - Medical Decision Making Was pt. sent in by a medical professional or institution (, PA, VERIFIER, urgent ca re, hospital, or residential...) When possible be specific @ -No Did you speak to anyone other than the patient for history (EMS, parent, family, police, friend...)? What history was obtained from this source @ -Patient's girlfriend at bedside Did you review nursing and triage notes (agree or disagree)? Why? @ -I reviewed triage note, agree with nursing and triage note with the exception of noted 4+ edema, patient has 1+ edema on the right lower extremity Were old charts reviewed (outside hosp., previous admission, EMS record, old EKG, old radiological studies, urgent care reports/EKG's, residential records)? Report findings @ - Differential Diagnosis (chest pain, altered mental status, abdominal pain women, abdominal pain men, vaginal bleeding, weakness, fever, dyspnea, syncope, head ache, dizziness, GI bleed, back pain, seizure, CVA, palpatations, mental health, musculoskeletal)? @ -Differential DX gastritis, peptic ulcer disease, diverticulosis, inflammatory bowel disease, , colitis, malignancy, sepsis secondary to cellulitis, this is not meant to be an all-inclusive list. EKG interpreted by me (3pts min.). @ -Atrial fibrillation with RVR X-rays interpreted by me (1pt min.). @ -Pulmonary edema, cardiomegaly CT interpreted by me (1pt min.). @ -I see no obvious evidence of perforation, obstruction U/S interpreted by me (1pt. min.). @ -None done What testing was considered but not performed or refused? (CT, X-rays, U/S, labs)? Why? @ -None What meds were considered but not given or refused? Why? @ -Considered heparin however concern for GI bleed so this was withheld Did you discuss the management of the patient with other professionals (professionals i.e. , PA, VERIFIER, lab, RT, psych nurse, social media marketing analyst, devulcanizer head, teacher, county health officer, family independence case manager)? Give summary @ -Discussed with Dr. Drummond Was smoking cessation discussed for >3mins.? @ -No Was critical care preformed (if so, how long)? @ -No Were there social determinants of health that impacted care today? How? (Homelessness, low income, unemployed, alcoholism, drug addiction, transportation, low edu. Level, literacy, decrease access to med. care, custodial, rehab)? @ -No Was there de-escalation of care discussed even if they declined (Discuss DNR or withdrawal of care, Hospice)? DNR status @ -No What co-morbidities impacted this encounter? (DM, HTN, Smoking, COPD, CAD, Cancer, CVA, ARF, Chemo, Hep., AIDS, mental health diagnosis, sleep apnea, morbid obesity)? @Obesity, diabetes Was patient admitted / discharged? Hospital course, mention meds given and route, prescriptions, significant lab abnormalities, going to OR and other pertinent info. @ -Hospital course Patient is a 43 y/o male presenting for 2 days black emesis , black diarrhea, epigastric abdominal pain, fever and RLE erythema and swelling. Hx DM. CHF. On exam tachycardic, pale, in no distress, minimal epigastric TTP, soft abdomen, e rythema and swelling along distal RLE. Sepsis bundle, cefepime, vancomycin and Flagyl ordered, protonix, GI bleed study ordered. Will start 1 1 litre IV fluids given hx CHF however will increase if needed. Morphine for pain ordered Patient became increasingly tachycardic will complete total 30 cc/kg bolus. additional 1.5 Litres ordered. EKG performed and showed new onset A fib. Anticoagulation withheld given concern for GI bleed. Suspect rate driven by sepsis so will complete IV fluid before administarting rate controlling medication. Hgb 16.8. Labs otherwise significant for sodium 129, chloride 93, glucose 374, AST 65, troponin 0.046, repeat ordered suspect secondary to demand ischemia, alk phos 244 chest x-ray with mild cardiomegaly and pulmonary edema CT with trace right pleural and pericardial effusions, ascites, soft tissue anasarca concerning for third spacing versus volume overload, circumferential wall thickening of the lower esophagus possibly related to inflammatory process process, correlate for any known esophageal disease clinical history, scattered lymphadenopathy throughout the abdomen retroperitoneum with cluster of nonenlarged lymph nodes seen in the bilateral inguinal region. I do suspect pulmonary edema 2/2 volume overload however sepsis bundle was prioritized given patient's possible volume depletion and tachycardia on arrival. On reassessment patient move comfortable, HR between 90-110, rectal exam performed with Sherley RN at bedside, hemoccult positive. As do not have GI coverage here and there is concern remaining for GI bleed will transfer to [facility]. Discussed with JIM Chow who kindly accepts patient for transfer. Patient agreeable with plan for transfer. Undiagnosed new problem with uncertain prognosis? @Yes Drug Therapy requiring intensive monitoring for toxicity (Heparin, Nitro, Insulin, Cardizem)? @ -No Were any procedures done? @ -No Diagnosis/symptom? @ -Sepsis, GI bleed Acute, or Chronic, or Acute on Chronic? @ -Acute Uncomplicated (without systemic symptoms) or Complicated (systemic symptoms)? @ -Complicated Side effects of treatment? @ -No Exacerbation, Progression, or Severe Exacerbation? @ -No Poses a threat to life or bodily function? How? (Chest pain, [place], [place], pneumonia, PE, COPD, DKA, ARF, appy, cholecystitis, CVA, Diverticulitis, Homicidal, Suicidal, threat to staff... and all critical care pts) @ -Yes, potentially, if sepsis rule out to progress could become septic shock, GI bleed were allowed to progress could become hemorrhagic shock - Lab Data Result diagrams: 03/25/24 19:40 03/25/24 19:40 Lab Results 03/25/24 03/25/24 03/25/24 Range/Units 17:41 19:40 19:40 WBC 7.5 (3.8-10.6) k/uL RBC 5.78 (4.30-5.90) m/uL Hgb 16.8 (13.0-17.5) gm/dL Hct 51.1 (39.0-53.0) % MCV 88.4 (80.0-100.0) fL MCH 29.1 (25.0-35.0) pg MCHC 33.0 (31.0-37.0) g/dL RDW 14.9 (11.5-15.5) % Plt Count 174 (150-450) k/uL MPV 11.0 Neutrophils % 88 % Lymphocytes % 7 % Monocytes % 4 % Eosinophils % 0 % Basophils % 1 % Neutrophils # 6.6 (1.3-7.7) k/uL Lymphocytes # 0.5 L (1.0-4.8) k/uL Monocytes # 0.3 (0-1.0) k/uL Eosinophils # 0.0 (0-0.7) k/uL Basophils # 0.0 (0-0.2) k/uL Manual Slide Review Performed PT (10.0-12.5) sec INR (<1.2) APTT (22.0-30.0) sec Sodium 129 L (137-145) mmol/L Potassium 4.6 (3.5-5.1) mmol/L Chloride 93 L (98-107) mmol/L Carbon Dioxide 23 (22-30) mmol/L Anion Gap 13 mmol/L BUN 23 H (9-20) mg/dL Creatinine 0.92 (0.66-1.25) mg/dL Est GFR (CKD-EPI)AfAm >90 (>60 ml/min/1.73 sqM) Est GFR (CKD-EPI)NonAf >90 (>60 ml/min/1.73 sqM) Glucose 374 H (74-99) mg/dL POC Glucose (mg/dL) 358 H (70-110) mg/dL POC Glu Parcel Wrapper ID [place], Alfredo Plasma Lactic Acid Mahad (0.7-2.0) mmol/L Calcium 8.9 (8.4-10.2) mg/dL Total Bilirubin 3.6 H (0.2-1.3) mg/dL AST 65 H (17-59) U/L ALT 29 (4-49) U/L Alkaline Phosphatase 244 H (38-126) U/L Troponin I (0.000-0.034) ng/mL Total Protein 6.8 (6.3-8.2) g/dL Albumin 3.6 (3.5-5.0) g/dL Amylase <30 L (30-110) U/L Lipase 18 L (23-300) U/L Urine Color Urine Appearance (Clear) Urine pH (5.0-8.0) Ur Specific [place] (1.001-1.035) Urine Protein (Negative) Urine Glucose (UA) (Negative) Urine Ketones (Negative) Urine Blood (Negative) Urine Nitrite (Negative) Urine Bilirubin (Negative) Urine Urobilinogen (<2.0) mg/dL Ur Leukocyte Esterase (Negative) Urine WBC (0-5) /hpf Ur Squamous Epith Cells (0-4) /hpf Amorphous Sediment (None) /hpf Urine Bacteria (None) /hpf Hyaline Casts (0-2) /lpf Urine Mucus (None) /hpf Blood Type Blood Type Confirm Blood Type Recheck Bld Type Recheck Status Antibody Screen Spec Expiration Date 03/25/24 03/25/24 03/25/24 Range/Units 19:40 19:40 21:40 WBC (3.8-10.6) k/uL RBC (4.30-5.90) m/uL Hgb (13.0-17.5) gm/dL Hct (39.0-53.0) % MCV (80.0-100.0) fL MCH (25.0-35.0) pg MCHC (31.0-37.0) g/dL RDW (11.5-15.5) % Plt Count (150-450) k/uL MPV Neutrophils % % Lymphocytes % % Monocytes % % Eosinophils % % Basophils % % Neutrophils # (1.3-7.7) k/uL Lymphocytes # (1.0-4.8) k/uL Monocytes # (0-1.0) k/uL Eosinophils # (0-0.7) k/uL Basophils # (0-0.2) k/uL Manual Slide Review PT 15.9 H (10.0-12.5) sec INR 1.5 H (<1.2) APTT 32.3 H (22.0-30.0) sec Sodium (137-145) mmol/L Potassium (3.5-5.1) mmol/L Chloride (98-107) mmol/L Carbon Dioxide (22-30) mmol/L Anion Gap mmol/L BUN (9-20) mg/dL Creatinine (0.66-1.25) mg/dL Est GFR (CKD-EPI)AfAm (>60 ml/min/1.73 sqM) Est GFR (CKD-EPI)NonAf (>60 ml/min/1.73 sqM) Glucose (74-99) mg/dL POC Glucose (mg/dL) (70-110) mg/dL POC Glu Parcel Wrapper ID Plasma Lactic Acid Mahad (0.7-2.0) mmol/L Calcium (8.4-10.2) mg/dL Total Bilirubin (0.2-1.3) mg/dL AST (17-59) U/L ALT (4-49) U/L Alkaline Phosphatase (38-126) U/L Troponin I 0.046 H* (0.000-0.034) ng/mL Total Protein (6.3-8.2) g/dL Albumin (3.5-5.0) g/dL Amylase (30-110) U/L Lipase (23-300) U/L Urine Color Urine Appearance (Clear) Urine pH (5.0-8.0) Ur Specific [place] (1.001-1.035) Urine Protein (Negative) Urine Glucose (UA) (Negative) Urine Ketones (Negative) Urine Blood (Negative) Urine Nitrite (Negative) Urine Bilirubin (Negative) Urine Urobilinogen (<2.0) mg/dL Ur Leukocyte Esterase (Negative) Urine WBC (0-5) /hpf Ur Squamous Epith Cells (0-4) /hpf Amorphous Sediment (None) /hpf Urine Bacteria (None) /hpf Hyaline Casts (0-2) /lpf Urine Mucus (None) /hpf Blood Type AB Positive Blood Type Confirm Blood Type Recheck Bld Type Recheck Status Antibody Screen NEGATIVE Spec Expiration Date 03/25/24 03/25/24 03/25/24 Range/Units 21:45 21:45 23:12 WBC (3.8-10.6) k/uL RBC (4.30-5.90) m/uL Hgb (13.0-17.5) gm/dL Hct (39.0-53.0) % MCV (80.0-100.0) fL MCH (25.0-35.0) pg MCHC (31.0-37.0) g/dL RDW (11.5-15.5) % Plt Count (150-450) k/uL MPV Neutrophils % % Lymphocytes % % Monocytes % % Eosinophils % % Basophils % % Neutrophils # (1.3-7.7) k/uL Lymphocytes # (1.0-4.8) k/uL Monocytes # (0-1.0) k/uL Eosinophils # (0-0.7) k/uL Basophils # (0-0.2) k/uL Manual Slide Review PT (10.0-12.5) sec INR (<1.2) APTT (22.0-30.0) sec Sodium (137-145) mmol/L Potassium (3.5-5.1) mmol/L Chloride (98-107) mmol/L Carbon Dioxide (22-30) mmol/L Anion Gap mmol/L BUN (9-20) mg/dL Creatinine (0.66-1.25) mg/dL Est GFR (CKD-EPI)AfAm (>60 ml/min/1.73 sqM) Est GFR (CKD-EPI)NonAf (>60 ml/min/1.73 sqM) Glucose (74-99) mg/dL POC Glucose (mg/dL) (70-110) mg/dL POC Glu Parcel Wrapper ID Plasma Lactic Acid Mahad (0.7-2.0) mmol/L Calcium (8.4-10.2) mg/dL Total Bilirubin (0.2-1.3) mg/dL AST (17-59) U/L ALT (4-49) U/L Alkaline Phosphatase (38-126) U/L Troponin I 0.049 H* (0.000-0.034) ng/mL Total Protein (6.3-8.2) g/dL Albumin (3.5-5.0) g/dL Amylase (30-110) U/L Lipase (23-300) U/L Urine Color Urine Appearance (Clear) Urine pH (5.0-8.0) Ur Specific [place] (1.001-1.035) Urine Protein (Negative) Urine Glucose (UA) (Negative) Urine Ketones (Negative) Urine Blood (Negative) Urine Nitrite (Negative) Urine Bilirubin (Negative) Urine Urobilinogen (<2.0) mg/dL Ur Leukocyte Esterase (Negative) Urine WBC (0-5) /hpf Ur Squamous Epith Cells (0-4) /hpf Amorphous Sediment (None) /hpf Urine Bacteria (None) /hpf Hyaline Casts (0-2) /lpf Urine Mucus (None) /hpf Blood Type Blood Type Confirm AB Positive Blood Type Recheck No Previous Record Bld Type Recheck Status CABO Indicated Antibody Screen Spec Expiration Date 03/28/2024 - 234403/25/24 03/26/24 Range/Units 23:26 00:18 WBC (3.8-10.6) k/uL RBC (4.30-5.90) m/uL Hgb (13.0-17.5) gm/dL Hct (39.0-53.0) % MCV (80.0-100.0) fL MCH (25.0-35.0) pg MCHC (31.0-37.0) g/dL RDW (11.5-15.5) % Plt Count (150-450) k/uL MPV Neutrophils % % Lymphocytes % % Monocytes % % Eosinophils % % Basophils % % Neutrophils # (1.3-7.7) k/uL Lymphocytes # (1.0-4.8) k/uL Monocytes # (0-1.0) k/uL Eosinophils # (0-0.7) k/uL Basophils # (0-0.2) k/uL Manual Slide Review PT (10.0-12.5) sec INR (<1.2) APTT (22.0-30.0) sec Sodium (137-145) mmol/L Potassium (3.5-5.1) mmol/L Chloride (98-107) mmol/L Carbon Dioxide (22-30) mmol/L Anion Gap mmol/L BUN (9-20) mg/dL Creatinine (0.66-1.25) mg/dL Est GFR (CKD-EPI)AfAm (>60 ml/min/1.73 sqM) Est GFR (CKD-EPI)NonAf (>60 ml/min/1.73 sqM) Glucose (74-99) mg/dL POC Glucose (mg/dL) (70-110) mg/dL POC Glu Parcel Wrapper ID Plasma Lactic Acid Mahad 3.9 H* (0.7-2.0) mmol/L Calcium (8.4-10.2) mg/dL Total Bilirubin (0.2-1.3) mg/dL AST (17-59) U/L ALT (4-49) U/L Alkaline Phosphatase (38-126) U/L Troponin I (0.000-0.034) ng/mL Total Protein (6.3-8.2) g/dL Albumin (3.5-5.0) g/dL Amylase (30-110) U/L Lipase (23-300) U/L Urine Color Yellow Urine Appearance Clear (Clear) Urine pH 5.5 (5.0-8.0) Ur Specific [place] >1.050 H (1.001-1.035) Urine Protein 2+ H (Negative) Urine Glucose (UA) 4+ H (Negative) Urine Ketones 1+ H (Negative) Urine Blood Small H (Negative) Urine Nitrite Negative (Negative) Urine Bilirubin 1+ H (Negative) Urine Urobilinogen 2.0 (<2.0) mg/dL Ur Leukocyte Esterase Negative (Negative) Urine WBC 5 (0-5) /hpf Ur Squamous Epith Cells 1 (0-4) /hpf Amorphous Sediment Rare H (None) /hpf Urine Bacteria Few H (None) /hpf Hyaline Casts 292 H (0-2) /lpf Urine Mucus Occasional H (None) /hpf Blood Type Blood Type Confirm Blood Type Recheck Bld Type Recheck Status Antibody Screen Spec Expiration Date Disposition Clinical Impression: Sepsis, GI bleed, Atrial fibrillation with RVR, Hyponatremia, Cellulitis Disposition: DC/TRNS INTERMEDIATE CARE FAC Condition: Stable Referrals: Juancho Parada MD [Primary Care Provider] - 1-2 days - Out of Hospital Transfer - Req. Specs Out of Hospital Transfer - Requested Specifics: Other Emergency Center ([facility])
[2024-03-26 00:43] VITALS: BP 100/76; PULSE 86; RESP 17; TEMP 98.5
[2024-03-26 01:16] LABS: Amorphous Sediment,Urine Rare /hpf; Appearance,Urine Clear (Clear); Bacteria,Urine Few /hpf; Bilirubin,Urine 1+ (Negative); Blood,Urine Small (Negative); Color,Urine Yellow; Glucose,Urine (UA) 4+ (Negative); Hyaline Casts,Urine 292 /lpf (0-2); Ketones,Urine 1+ (Negative); Leukocyte Esterase,Urine Negative (Negative); Mucus,Urine Occasional /hpf; Nitrite,Urine Negative (Negative); PH, Urine 5.5 (5.0-8.0); Protein,Urine 2+ (Negative); Specific Gravity,Urine >1.050 (1.001-1.035); Squamous Epithelial Cell,Urine 1 /hpf (0-4); WBC,Urine 5 /hpf (0-5)
== END 2024-03-26 01:17 ==
LOC: EC 17:34
DX: R11.10 Vomiting, unspecified
CPT/HCPCS: 36415; 71046; 74174; 80053; 81001; 82150; 83605; 83690; 84484; 85025; 85610; 85730; 86850; 86900; 86901; 87040; 93005; 96365; 96366; 96367; 96375; 99285

== ENCOUNTER 2024-05-15 17:08 | Emergency (ER) | payer BC ==
[2024-05-15 17:25] VITALS: TEMP 98.2
--- NOTE | 2024-05-15 17:48 | ED ---
Dizziness HPI - General Source: patient, EMS, RN notes reviewed Mode of arrival: EMS Limitations: no limitations - History of Present Illness MD Complaint: dizziness <Alie Villegas - Last Filed: 05/15/24 20:43> <Dora Quinn - Last Filed: 05/15/24 21:46> - General Chief Complaint: Recheck/Abnormal Lab/Rx Stated Complaint: weakness Time Seen by Provider: 05/15/24 17:09 - History of Present Illness Initial Comments: This is a 43-year-old male who presents to the emergency department for dizziness and weakness. Patient was evaluated here in February for GI symptoms. At that time he was dealing with infections in both lower extremities. He was transferred to [place] due to lack of GI coverage at our facility. At that time they did an amputation of the left great toe and he was on antibiotics for the right leg infection. The left great toe is healing well and he has no issues with this. However, he is following with wound care at our facility for the right calf wound. Over the last couple of days he has been increasingly dizzy. States that this is only when he stands up. Would not describe this as a room spinning sensation. Believes that this is related to dehydration. He has also had much more drainage from the wound on his right lower extremity. Patient is concerned about another infection. Denies any fevers/chills. He was advised by his PCP and wound care provider to come to the emergency department for evaluation. (Alie Villegas) - Related Data Home Medications Medication Instructions Recorded Confirmed Atorvastatin [Lipitor] 80 mg PO DAILY 10/12/22 05/15/24 Furosemide [Lasix] 40 mg PO DAILY 10/12/22 05/15/24 Pantoprazole [Protonix] 40 mg PO BID 10/12/22 05/15/24 amLODIPine [Norvasc] 5 mg PO DAILY 10/12/22 05/15/24 carvediloL [Coreg] 25 mg PO BID 10/12/22 05/15/24 Albuterol Sulfate [Ventolin HFA] 2 puff INHALATION RT-Q4H PRN 05/15/24 05/15/24 Apixaban [Eliquis] 5 mg PO BID 05/15/24 05/15/24 Aspirin 81 mg PO DAILY 05/15/24 05/15/24 HYDROcodone/APAP 5-325MG [[place] 1 tab PO Q6H PRN 05/15/24 05/15/24 5-325] INSULIN ASPART (NovoLOG) [NovoLOG 15 unit SQ TID-W/MEALS 05/15/24 05/15/24 (formulary)] Insulin Detemir (Levemir) [Levemir] 15 unit SQ BID 05/15/24 05/15/24 Nitroglycerin Sl Tabs [Nitrostat] 0.4 mg SL Q5M PRN 05/15/24 05/15/24 Sucralfate [Carafate] 1 gm PO ACHS 05/15/24 05/15/24 Allergies Allergy/AdvReac Type Severity Reaction Status Date / Time No Known Allergies Allergy Verified 05/15/24 18:58 Review of Systems ROS Other: All systems not noted in ROS Statement are negative. <Alie Villegas - Last Filed: 05/15/24 20:43> ROS Other: All systems not noted in ROS Statement are negative. <Dora Quinn - Last Filed: 05/15/24 21:46> ROS Statement: Those systems with pertinent positive or pertinent negative responses have been documented in the HPI. Past Medical History Past Medical History: Coronary Artery Disease (CAD), Diabetes Mellitus, Hyperlipidemia, Hypertension Additional Past Medical History / Comment(s): neuropathy Last Myocardial Infarction Date:: 11/20/2020 History of Any Multi-Drug Resistant Organisms: ESBL Date of last positivie culture/infection: 03/03/21 E. coli ESBL MDRO Source:: Left Foot Past Surgical History: Back Surgery, Heart Catheterization With Stent, Hernia Repair Additional Past Surgical History / Comment(s): 4 cardiac stents 11/20/2020, 1 cardiac stent 11/23/2020 Past Anesthesia/Blood Transfusion Reactions: No Reported Reaction Past Psychological History: Depression Smoking Status: Never smoker Past Alcohol Use History: None Reported Past Drug Use History: None Reported - Past Family History Mother Family Medical History: Diabetes Mellitus Father Family Medical History: Congestive Heart Failure (CHF), Coronary Artery Disease (CAD), Diabetes Mellitus, Hypertension, Myocardial Infarction (ID) Additional Family Medical History / Comment(s): father 2019 from [place] <Alie Villegas - Last Filed: 05/15/24 20:43> General Exam Limitations: no limitations General appearance: alert, in no apparent distress Head exam: Present: atraumatic, normocephalic, normal inspection Respiratory exam: Present: normal lung sounds bilaterally. Absent: respiratory distress, wheezes, rales, rhonchi, stridor Cardiovascular Exam: Present: regular rate, normal rhythm, normal heart sounds. Absent: systolic murmur, diastolic murmur, rubs, gallop, clicks Neurological exam: Present: alert, oriented X3, CN II-XII intact Psychiatric exam: Present: normal affect, normal mood <Alie Villegas - Last Filed: 05/15/24 20:43> Course Vital Signs 05/15/24 05/15/24 17:18 18:52 Temperature 98.2 F Pulse Rate 114 H 126 H Respiratory 19 20 Rate Blood Pressure 130/88 132/98 O2 Sat by Pulse 97 94 L Oximetry Medical Decision Making - Lab Data Result diagrams: 05/15/24 17:29 05/15/24 17:29 - Radiology Data Radiology results: report reviewed, image reviewed <Alie Villegas - Last Filed: 05/15/24 20:43> - Lab Data Result diagrams: 05/15/24 17:29 05/15/24 17:29 <Dora Quinn - Last Filed: 05/15/24 21:46> - Medical Decision Making This is a 43 year old male who presents to the emergency department for dizziness. Was pt. sent in by a medical professional or institution? @ -No Did you speak to anyone other than the patient for history? @ -No Did you review nursing and triage notes? @ -Yes, and I agree, it is accurate with regards to the patient's symptoms. Were old charts reviewed? @ -No Differential Diagnosis? @ -Differential Dizziness: Benign paroxysmal positional Vertigo, Meniere's disease, otitis media, acoustic neuroma, vertebrobasilar insufficiency, cerebellar stroke, encephalitis, hypovolemic, arrhythmia, coronary artery syndrome, anemia, this is not meant to be an all-inclusive list EKG interpreted by me (3pts min.)? @ -EKG interpreted by me demonstrating the following: A-fib with RVR. Ventricular rate 123 bpm, QRS duration 85 ms, QTc 372 ms. X-rays interpreted by me (1pt min.)? @ -Chest x-ray obtained, my interpretation identifies no localized consolidations or infiltrates. X-ray of the right tib-fib obtained. My interpretation identifies no evidence of osseous erosion. CT interpreted by me (1pt min.)? @ -Not obtained U/S interpreted by me (1pt. min.)? @ -Not obtained What testing was considered but not performed? (CT, X-rays, U/S, labs)? Why? @ -None What meds were considered but not given? Why? @ -None Did you discuss the management of the patient with other professionals? @ -No Did you reconcile home meds? @ -No Was smoking cessation discussed for >3mins.? @ -No Was critical care preformed (if so, how long)? @ -No Were there social determinants of health that impacted care today? How? ([place] elessness, low income, unemployed, alcoholism, drug addiction, transportation, low edu. Level, literacy, decrease access to med. care, [facility], rehab)? @ -No Was there de-escalation of care discussed even if they declined? (Discuss DNR or withdrawal of care, Hospice)? @ -No What co-morbidities impacted this encounter? (DM, HTN, Smoking, COPD, CAD, C ancer, CVA, Hep., AIDS, mental health diagnosis, sleep apnea, morbid obesity)? @ -A-fib, CAD, HTN, DM Was patient admitted / discharged? @ -Lab work demonstrates leukocytosis with a white blood cell count of 12.2. He has hyponatremia with a sodium of 124, however this is likely related to the hyperglycemia. Patient has a glucose of 456. When corrected for hyperglycemia sodium is 130. Lactic acid elevated at 3.1 and CRP is 19.3. Chest x-ray reveals no acute process. X-ray of the right lower extremity reveals soft tissue swelling without any other acute findings. When patient arrived he was in a-fib with RVR and heart rate was ranging from 110-130. He was given a liter of IV fluids and he began to convert to sinus rhythm and heart rate was in the 90s to low 100s. Cardizem had been ordered initially but was discontinued before actually being started due to improvement in heart rate with fluids. Patient's leg was bandaged with a pressure dressing to help with the drainage. Patient advised that he felt much better following the fluids and believes that he was just dehydrated. We had discussed admission based on his lab values and leg wound, however patient requested DC home. 8 units of IV insulin and an additional 500mL bolus of IV fluids was ordered. Case signed out to Dora Quinn PA-C at shift completion pending disposition. (Alie Villegas) Was signed out to me at shift change pending reflex lactic acid, blood glucose recheck and disposition. Patient's blood glucose after administered 8 units of insulin is 350. Reflex lactic acid 2.0. Discussion with patient at bedside recommend that he is admitted observation with cardiology on consult and is started on antibiotics however patient is strongly requesting discharge and states that he will follow-up as scheduled outpatient. Patient does have a h istory of atrial fibrillation and is on Coreg and Eliquis. Case is discussed with my attending Dr. Williamson (Dora Quinn) - Lab Data Lab Results 05/15/24 05/15/24 05/15/24 Range/Units 17:29 17:29 17:29 WBC 12.2 H (3.8-10.6) k/uL RBC 4.90 (4.30-5.90) m/uL Hgb 14.2 (13.0-17.5) gm/dL Hct 41.3 (39.0-53.0) % MCV 84.1 (80.0-100.0) fL MCH 29.0 (25.0-35.0) pg MCHC 34.5 (31.0-37.0) g/dL RDW 15.2 (11.5-15.5) % Plt Count 365 D (150-450) k/uL MPV 8.3 Neutrophils % 80 % Lymphocytes % 10 % Monocytes % 7 % Eosinophils % 0 % Basophils % 0 % Neutrophils # 9.8 H (1.3-7.7) k/uL Lymphocytes # 1.2 (1.0-4.8) k/uL Monocytes # 0.8 (0-1.0) k/uL Eosinophils # 0.1 (0-0.7) k/uL Basophils # 0.0 (0-0.2) k/uL Hypochromasia Slight PT (10.0-12.5) sec INR (<1.2) APTT (22.0-30.0) sec Sodium 124 L (137-145) mmol/L Potassium 4.9 (3.5-5.1) mmol/L Chloride 90 L (98-107) mmol/L Carbon Dioxide 25 (22-30) mmol/L Anion Gap 9 mmol/L BUN 29 H (9-20) mg/dL Creatinine 0.68 (0.66-1.25) mg/dL Est GFR (CKD-EPI)AfAm >90 (>60 ml/min/1.73 sqM) Est GFR (CKD-EPI)NonAf >90 (>60 ml/min/1.73 sqM) Glucose 456 H (74-99) mg/dL POC Glucose (mg/dL) (70-110) mg/dL POC Glu Mammography Technologist ID Lactic Ac Sepsis Rflx Plasma Lactic Acid Mahad 3.1 H* (0.7-2.0) mmol/L Calcium 9.1 (8.4-10.2) mg/dL Phosphorus 4.5 (2.5-4.5) mg/dL Magnesium 1.7 (1.6-2.3) mg/dL Total Bilirubin 1.1 (0.2-1.3) mg/dL AST 25 (17-59) U/L ALT 15 (4-49) U/L Alkaline Phosphatase 310 H (38-126) U/L C-Reactive Protein 19.3 H (<1.0) mg/dL Total Protein 6.9 (6.3-8.2) g/dL Albumin 3.2 L (3.5-5.0) g/dL 05/15/24 05/15/24 05/15/24 Range/Units 17:29 18:38 20:40 WBC (3.8-10.6) k/uL RBC (4.30-5.90) m/uL Hgb (13.0-17.5) gm/dL Hct (39.0-53.0) % MCV (80.0-100.0) fL MCH (25.0-35.0) pg MCHC (31.0-37.0) g/dL RDW (11.5-15.5) % Plt Count (150-450) k/uL MPV Neutrophils % % Lymphocytes % % Monocytes % % Eosinophils % % Basophils % % Neutrophils # (1.3-7.7) k/uL Lymphocytes # (1.0-4.8) k/uL Monocytes # (0-1.0) k/uL Eosinophils # (0-0.7) k/uL Basophils # (0-0.2) k/uL Hypochromasia PT 12.2 (10.0-12.5) sec INR 1.1 (<1.2) APTT 22.7 (22.0-30.0) sec Sodium (137-145) mmol/L Potassium (3.5-5.1) mmol/L Chloride (98-107) mmol/L Carbon Dioxide (22-30) mmol/L Anion Gap mmol/L BUN (9-20) mg/dL Creatinine (0.66-1.25) mg/dL Est GFR (CKD-EPI)AfAm (>60 ml/min/1.73 sqM) Est GFR (CKD-EPI)NonAf (>60 ml/min/1.73 sqM) Glucose (74-99) mg/dL POC Glucose (mg/dL) 415 H (70-110) mg/dL POC Glu Mammography Technologist ID Graciela Marley Lactic Ac Sepsis Rflx Y Plasma Lactic Acid Mahad (0.7-2.0) mmol/L Calcium (8.4-10.2) mg/dL Phosphorus (2.5-4.5) mg/dL Magnesium (1.6-2.3) mg/dL Total Bilirubin (0.2-1.3) mg/dL AST (17-59) U/L ALT (4-49) U/L Alkaline Phosphatase (38-126) U/L C-Reactive Protein (<1.0) mg/dL Total Protein (6.3-8.2) g/dL Albumin (3.5-5.0) g/dL 05/15/24 05/15/24 Range/Units 20:59 21:30 WBC (3.8-10.6) k/uL RBC (4.30-5.90) m/uL Hgb (13.0-17.5) gm/dL Hct (39.0-53.0) % MCV (80.0-100.0) fL MCH (25.0-35.0) pg MCHC (31.0-37.0) g/dL RDW (11.5-15.5) % Plt Count (150-450) k/uL MPV Neutrophils % % Lymphocytes % % Monocytes % % Eosinophils % % Basophils % % Neutrophils # (1.3-7.7) k/uL Lymphocytes # (1.0-4.8) k/uL Monocytes # (0-1.0) k/uL Eosinophils # (0-0.7) k/uL Basophils # (0-0.2) k/uL Hypochromasia PT (10.0-12.5) sec INR (<1.2) APTT (22.0-30.0) sec Sodium (137-145) mmol/L Potassium (3.5-5.1) mmol/L Chloride (98-107) mmol/L Carbon Dioxide (22-30) mmol/L Anion Gap mmol/L BUN (9-20) mg/dL Creatinine (0.66-1.25) mg/dL Est GFR (CKD-EPI)AfAm (>60 ml/min/1.73 sqM) Est GFR (CKD-EPI)NonAf (>60 ml/min/1.73 sqM) Glucose (74-99) mg/dL POC Glucose (mg/dL) 350 H (70-110) mg/dL POC Glu Mammography Technologist OLIVER [place] Lactic Ac Sepsis Rflx Plasma Lactic Acid Mahad 2.0 (0.7-2.0) mmol/L Calcium (8.4-10.2) mg/dL Phosphorus (2.5-4.5) mg/dL Magnesium (1.6-2.3) mg/dL Total Bilirubin (0.2-1.3) mg/dL AST (17-59) U/L ALT (4-49) U/L Alkaline Phosphatase (38-126) U/L C-Reactive Protein (<1.0) mg/dL Total Protein (6.3-8.2) g/dL Albumin (3.5-5.0) g/dL Disposition <Alie Villegas - Last Filed: 05/15/24 20:43> Is patient prescribed a controlled substance at d/c from ED?: No Time of Disposition: 21:45 <Dora Quinn - Last Filed: 05/15/24 21:46> Clinical Impression: Atrial fibrillation with RVR, Hyperglycemia Disposition: HOME SELF-CARE Condition: Stable Instructions (If sedation given, give patient instructions): A-fib (Atrial Fibrillation) (ED) Additional Instructions: Please return to the Emergency Department if symptoms worsen or any other co ncerns. Referrals: Lisa Shore, SANDI [REFERRING] - 1-2 days
[2024-05-15] MEDS: SODIUM CHLORIDE 0.9% 1,000 ML IV STA ×2 (18:01→19:16)
[2024-05-15 18:24] LABS: Basophils % (A) 0 %; Eosinophils # (A) 0.1 k/uL (0-0.7); Eosinophils % (A) 0 %; HCT 41.3 % (39.0-53.0); HGB 14.2 gm/dL (13.0-17.5); Hypochromasia Slight; Lymphocytes # (A) 1.2 k/uL (1.0-4.8); Lymphocytes % (A) 10 %; MCHC 34.5 g/dL (31.0-37.0); MCV 84.1 fL (80.0-100.0); Mean Platelet Volume 8.3; Monocytes # (A) 0.8 k/uL (0-1.0); Monocytes % (A) 7 %; Neutrophils # (A) 9.8 k/uL (1.3-7.7); Neutrophils % (A) 80 %; RDW 15.2 % (11.5-15.5); WBC 12.2 k/uL (3.8-10.6)
[2024-05-15 18:37] LABS: INR 1.1 (<1.2); Partial Thromboplastin Time 22.7 sec (22.0-30.0); Prothrombin Time 12.2 sec (10.0-12.5)
[2024-05-15 18:47] LABS: ALT 15 U/L (4-49); AST 25 U/L (17-59); African American GFR (CKD) >90 (>60 ml/min/1.73 sqM); Albumin 3.2 g/dL (3.5-5.0); Alkaline Phosphatase 310 U/L (38-126); Anion Gap 9 mmol/L; Blood Urea Nitrogen 29 mg/dL (9-20); Calcium 9.1 mg/dL (8.4-10.2); Carbon Dioxide 25 mmol/L (22-30); Chloride 90 mmol/L (98-107); Glucose 456 mg/dL (74-99); Magnesium 1.7 mg/dL (1.6-2.3); Non-African American GFR(CKD) >90 (>60 ml/min/1.73 sqM); Phosphorus 4.5 mg/dL (2.5-4.5); Potassium 4.9 mmol/L (3.5-5.1); Sodium 124 mmol/L (137-145); Total Bilirubin 1.1 mg/dL (0.2-1.3); Total Protein 6.9 g/dL (6.3-8.2)
[2024-05-15 18:50] LABS: Platelet Count 365 k/uL (150-450)
--- NOTE | 2024-05-15 18:51 | XR ---
EXAMINATION TYPE: XR chest 2V DATE OF EXAM: 05/15/2024 6:31 PM CLINICAL INDICATION: Male, 43 years old with history of Dizziness; [facility] COMPARISON: Chest radiographs from 03/25/2024 TECHNIQUE: XR chest 2V Frontal view of the chest. FINDINGS: Lungs/Pleura: There is no evidence of pleural effusion, focal consolidation, or pneumothorax. Pulmonary vascularity: Unremarkable. Heart/mediastinum: Cardiomediastinal silhouette is unremarkable. Musculoskeletal: No acute osseous pathology. IMPRESSION: No acute cardiopulmonary disease/process. [facility], , 05/15/2024 6:48 PM
--- NOTE | 2024-05-15 18:52 | XR ---
EXAMINATION TYPE: XR tibia fibula RT DATE OF EXAM: 05/15/2024 6:31 PM CLINICAL INDICATION: Male, 43 years old with history of Infection; COMPARISON: None TECHNIQUE: XR tibia fibula RT; examined in AP and lateral projections. FINDINGS: No evidence of any acute osseous pathology, joint dislocation. There is soft tissue sign th roughout the leg. No evidence for osseous erosion. IMPRESSION: Soft tissue swelling without evidence of osseous erosion. No evidence of fracture. [facility], , 05/15/2024 6:49 PM
[2024-05-15 19:02] LABS: C Reactive Protein 19.3 mg/dL (<1.0)
[2024-05-15] MEDS: DILTIAZEM 125 MG in SODIUM CHLORIDE 0.9% 100 ML IV SCH (19:13)
[2024-05-15] MEDS: DILTIAZEM DRIP BOLUS FROM BAG 1 MG SOLN IV ONE (19:14)
[2024-05-15] MEDS: SODIUM CHLORIDE 0.9% 500 ML 500 ML IV STA (19:30)
[2024-05-15 20:42] LABS: Glucose,Whole Blood 415 mg/dL (70-110)
[2024-05-15] MEDS: INSULIN REGULAR 100 UNIT/ML VIAL (IV) IV ONE (20:45)
[2024-05-15 21:31] LABS: Glucose,Whole Blood 350 mg/dL (70-110)
[2024-05-15 21:50] VITALS: BP 113/64; PULSE 102; RESP 18
[2024-05-16 03:56] LABS: Erythrocyte Sedimentation Rate 119 mm/Hr (0-15)
== END 2024-05-15 22:01 | disposition home or self-care (01) ==
LOC: EC 17:08
DX: E11.65 Type 2 diabetes mellitus with hyperglycemia (principal); I48.91 Unspecified atrial fibrillation; I10 Essential (primary) hypertension; I25.10 Atherosclerotic heart disease of native coronary artery without angina pectoris; D72.829 Elevated white blood cell count, unspecified; R74.02 Elevation of levels of lactic acid dehydrogenase [LDH]; R79.82 Elevated C-reactive protein (CRP); Z79.01 Long term (current) use of anticoagulants; Z79.4 Long term (current) use of insulin; Z79.899 Other long term (current) drug therapy; Z79.82 Long term (current) use of aspirin
CPT/HCPCS: 36415; 71046; 80053; 83605; 83735; 84100; 85025; 85610; 85652; 85730; 86140; 93005; 96361; 96365; 99285

== ENCOUNTER 2024-05-20 09:56 | Inpatient (IN) | payer BC ==
--- NOTE | 2024-05-20 10:02 | ED ---
Wound/Laceration HPI - General Chief Complaint: Wound/Laceration Stated Complaint: R Leg Infection Time Seen by Provider: 05/20/24 10:02 Source: patient, RN notes reviewed Mode of arrival: wheelchair Limitations: no limitations - History of Present Illness Initial Comments: 43-year-old male with a history of type 2 diabetes and atrial fibrillation on Eliquis presented to the emergency department chief complaint of right lower extremity wound and infection. Patient has been struggling with a chronic wound of his right lower extremity where he sees wound care every Monday. He was advised to report to the emergency department for IV antibiotics. States that he has been experiencing intermittent fevers, chills, nausea and vomiting. Patient was admitted to [facility] for a few weeks for IV antibiotics and subsequent left toe amputation due to wound infection. He states that he is currently on dicyclomine orally. - Related Data Home Medications Medication Instructions Recorded Confirmed Atorvastatin [Lipitor] 80 mg PO DAILY 10/12/22 05/20/24 Pantoprazole [Protonix] 40 mg PO BID 10/12/22 05/20/24 amLODIPine [Norvasc] 5 mg PO DAILY 10/12/22 05/20/24 carvediloL [Coreg] 25 mg PO BID 10/12/22 05/20/24 Albuterol Sulfate [Ventolin HFA] 2 puff INHALATION RT-Q4H PRN 05/15/24 05/20/24 Apixaban [Eliquis] 5 mg PO BID 05/15/24 05/20/24 Aspirin 81 mg PO DAILY 05/15/24 05/20/24 HYDROcodone/APAP 5-325MG [[place] 1 tab PO Q6H PRN 05/15/24 05/20/24 5-325] INSULIN ASPART (NovoLOG) [NovoLOG 15 unit SQ TID-W/MEALS 05/15/24 05/20/24 (formulary)] Insulin Detemir (Levemir) [Levemir] 15 unit SQ BID 05/15/24 05/20/24 Nitroglycerin Sl Tabs [Nitrostat] 0.4 mg SL Q5M PRN 05/15/24 05/20/24 Sucralfate [Carafate] 1 gm PO ACHS 05/15/24 05/20/24 Furosemide [Lasix] 40 mg PO DAILY 05/20/24 05/20/24 Allergies Allergy/AdvReac Type Severity Reaction Status Date / Time No Known Allergies Allergy Verified 05/20/24 11:03 Review of Systems ROS Statement: Those systems with pertinent positive or pertinent negative responses have been documented in the HPI. ROS Other: All systems not noted in ROS Statement are negative. Past Medical History Past Medical History: Atrial Fibrillation, Coronary Artery Disease (CAD), Diabetes Mellitus, Hyperlipidemia, Hypertension Additional Past Medical History / Comment(s): neuropathy Last Myocardial Infarction Date:: 11/20/2020 History of Any Multi-Drug Resistant Organisms: ESBL Date of last positivie culture/infection: 03/03/21 E. coli ESBL MDRO Source:: Left Foot Past Surgical History: Back Surgery, Heart Catheterization With Stent, Hernia Repair Additional Past Surgical History / Comment(s): 4 cardiac stents 11/20/2020, 1 cardiac stent 11/23/2020 Past Anesthesia/Blood Transfusion Reactions: No Reported Reaction Past Psychological History: Depression Smoking Status: Never smoker Past Alcohol Use History: None Reported Past Drug Use History: None Reported - Past Family History Mother Family Medical History: Diabetes Mellitus Father Family Medical History: Congestive Heart Failure (CHF), Coronary Artery Disease (CAD), Diabetes Mellitus, Hypertension, Myocardial Infarction ([place]) Additional Family Medical History / Comment(s): father 2019 from [place] General Exam Limitations: no limitations General appearance: alert, in no apparent distress Head exam: Present: atraumatic, normocephalic, normal inspection Eye exam: Present: normal appearance, PERRL, EOMI. Absent: scleral icterus, conjunctival injection, periorbital swelling Neck exam: Present: normal inspection. Absent: tenderness, meningismus, lymphadenopathy Respiratory exam: Present: normal lung sounds bilaterally. Absent: respiratory distress, wheezes, rales, rhonchi, stridor Cardiovascular Exam: Present: regular rate, irregular rhythm, normal heart sounds. Absent: systolic murmur, diastolic murmur, rubs, gallop, clicks GI/Abdominal exam: Present: soft, normal bowel sounds. Absent: distended, te nderness, guarding, rebound, rigid Right Lower Leg exam: Present: tenderness, deformity (posterior severe deep leg wound with eschar, mild bleeding, ). Absent: normal inspection Ankle exam: Present: tenderness, swelling Neurovascular tendon exam: Present: pulse deficit (1+), abnormal cap refill Gait: not tested/not observed Left Foot/Toe exam: Present: amputation (great toe) Back exam: Present: normal inspection Neurological exam: Present: alert, oriented X3, CN II-XII intact Skin exam: Present: dry, pallor Course Vital Signs 05/20/24 09:57 Temperature 97.5 F L Pulse Rate 81 Respiratory 18 Rate Blood Pressure 94/66 O2 Sat by Pulse 98 Oximetry Medical Decision Making - Medical Decision Making Was pt. sent in by a medical professional or institution (, PA, OPHTHALMIC SURGICAL ASSISTANT, urgent care, hospital, or fci...) When possible be specific @ -No Did you speak to anyone other than the patient for history (EMS, parent, family, police, friend...)? What history was obtained from this source @ -No Did you review nursing and triage notes (agree or disagree)? Why? @ -I reviewed and agree with nursing and triage notes Were old charts reviewed (outside hosp., previous admission, EMS record, old EKG, old radiological studies, urgent care reports/EKG's, fci records)? Report findings @ -I reviewed the patient's emergency department visit note from 05/15/2024 where he presented to the emergency department for dizziness and weakness where he was advised primary care provider to report to the emergency department for further evaluation. Patient was found to be in atrial fibrillation with rapid ventricular response and was provided with a liter of IV fluids and additional 8 units of insulin with decrease in blood sugar. Patient was persistent on returning home at this time and he was discharged however was advised to stay in the emergency department for further evaluation. Differential Diagnosis (chest pain, altered mental status, abdominal pain women, abdominal pain men, vaginal bleeding, weakness, fever, dyspnea, syncope, headache, dizziness, GI bleed, back pain, seizure, CVA, palpatations, mental health, musculoskeletal)? @ -Cellulitis, bacteremia, osteomyelitis, this list is not all inclusive EKG interpreted by me (3pts min.). @ -Completed at 1011 sinus rhythm with a ventricular rate of 80, NH interval 176, QRS 78, QTc 400. No acute signs of ischemia. X-rays interpreted by me (1pt min.). @ -None done CT interpreted by me (1pt min.). @ -None done U/S interpreted by me (1pt. min.). @ -None done What testing was considered but not performed or refused? (CT, X-rays, U/S, labs)? Why? @ -None What meds were considered but not given or refused? Why? @ -None Did you discuss the management of the patient with other professionals (professionals i.e. Dr., PA, OPHTHALMIC SURGICAL ASSISTANT, lab, RT, psych nurse, social media director, clinical nursing director, teacher, commissary officer, showcase maker)? Give summary @ -i spoke to the patient's PCP, dr. Parada in regard to the patient's symptoms and concern for sepsis with chronic non-healing right lower extremity wound. Patient will be admitted with infectious disease on consult. I briefly spoke with nurse practitioner with vascular surgery, Constanza, in regard to the patient's presentation and she recommends that vascular be placed on consult for further evaluation as well. Was smoking cessation discussed for >3mins.? @ -No Was critical care preformed (if so, how long)? @ -No Were there social determinants of health that impacted care today? How? (Homelessness, low income, unemployed, alcoholism, drug addiction, transportation, low edu. Level, literacy, decrease access to med. care, shelter, rehab)? @ -No Was there de-escalation of care discussed even if they declined (Discuss DNR or withdrawal of care, Hospice)? DNR status @ -No What co-morbidities impacted this encounter? (DM, HTN, Smoking, COPD, CAD, Ca ncer, CVA, ARF, Chemo, Hep., AIDS, mental health diagnosis, sleep apnea, morbid obesity)? @ -Afib, DM Was patient admitted / discharged? Hospital course, mention meds given and route, prescriptions, significant lab abnormalities, going to OR and other pertinent info. @ -admitted. 43-year-old male with right lower extremity wound. On my evaluation the patient is noted to be overall ill-appearing, pallor and dry mucous membranes. He is mildly hypotensive with a blood pressure of 94/66, afebrile, nontachycardic. Noted to have a severe right lower extremity wound with eschar, mild active bleeding additionally a wound to the dorsum of the right foot.. Patient will be symptomatically treated with IV fluids pending laboratory results. He was offered pain medication however states that he has severe neuropathy and therefore does not have pain to his lower extremities therefore he is declined at this time. He is also declined antiemetics. CBC reveals mild leukocytosis 11.3, neutrophils 8.9, lactic acid elevated at 4.1, hyperglycemia 264 with hyponatremia of 128 which is likely refractory secondary to hyper glycemia. Patient is provided with additional liter fluid bolus. CRP elevated at 20.4. Patient will be admitted to internal medicine with infectious disease and vascular on consult for further evaluation of chronic right lower extremity wound. Case was discussed with my attending Dr. Dinero Undiagnosed new problem with uncertain prognosis? @ -No Drug Therapy requiring intensive monitoring for toxicity (Heparin, Nitro, Insulin, Cardizem)? @ -No Were any procedures done? @ -No Diagnosis/symptom? @ -Nonhealing right lower extremity wound and cellulitis, sepsis Acute, or Chronic, or Acute on Chronic? @ -acute Uncomplicated (without systemic symptoms) or Complicated (systemic symptoms)? @ -Complicated Side effects of treatment? @ -No Exacerbation, Progression, or Severe Exacerbation? @ -No Poses a threat to life or bodily function? How? (Chest pain, [place], [place], pneumonia, PE, COPD, DKA, ARF, appy, cholecystitis, CVA, Diverticulitis, Homicidal, S uicidal, threat to staff... and all critical care pts) @ -yes - Lab Data Result diagrams: 05/20/24 11:07 05/20/24 11:07 Lab Results 05/20/24 05/20/24 05/20/24 Range/Units 11:07 11:07 11:07 WBC 11.3 H (3.8-10.6) k/uL RBC 5.84 (4.30-5.90) m/uL Hgb 15.9 (13.0-17.5) gm/dL Hct 47.5 (39.0-53.0) % MCV 81.3 (80.0-100.0) fL MCH 27.2 (25.0-35.0) pg MCHC 33.4 (31.0-37.0) g/dL RDW 15.4 (11.5-15.5) % Plt Count 333 (150-450) k/uL MPV 8.5 Neutrophils % 79 % Lymphocytes % 14 % Monocytes % 5 % Eosinophils % 1 % Basophils % 0 % Neutrophils # 8.9 H (1.3-7.7) k/uL Lymphocytes # 1.5 (1.0-4.8) k/uL Monocytes # 0.5 (0-1.0) k/uL Eosinophils # 0.1 (0-0.7) k/uL Basophils # 0.0 (0-0.2) k/uL Sodium 128 L (137-145) mmol/L Potassium 4.9 (3.5-5.1) mmol/L Chloride 91 L (98-107) mmol/L Carbon Dioxide 28 (22-30) mmol/L Anion Gap 9 mmol/L BUN 19 (9-20) mg/dL Creatinine 0.70 (0.66-1.25) mg/dL Est GFR (CKD-EPI)AfAm >90 (>60 ml/min/1.73 sqM) Est GFR (CKD-EPI)NonAf >90 (>60 ml/min/1.73 sqM) Glucose 264 H (74-99) mg/dL Lactic Ac Sepsis Rflx Plasma Lactic Acid Mahad 4.1 H* (0.7-2.0) mmol/L Calcium 8.6 (8.4-10.2) mg/dL Total Bilirubin 1.1 (0.2-1.3) mg/dL AST 24 (17-59) U/L ALT 16 (4-49) U/L Alkaline Phosphatase 339 H (38-126) U/L C-Reactive Protein 20.4 H (<1.0) mg/dL Total Protein 6.6 (6.3-8.2) g/dL Albumin 3.0 L (3.5-5.0) g/dL 05/20/24 Range/Units 11:56 WBC (3.8-10.6) k/uL RBC (4.30-5.90) m/uL Hgb (13.0-17.5) gm/dL Hct (39.0-53.0) % MCV (80.0-100.0) fL MCH (25.0-35.0) pg MCHC (31.0-37.0) g/dL RDW (11.5-15.5) % Plt Count (150-450) k/uL MPV Neutrophils % % Lymphocytes % % Monocytes % % Eosinophils % % Basophils % % Neutrophils # (1.3-7.7) k/uL Lymphocytes # (1.0-4.8) k/uL Monocytes # (0-1.0) k/uL Eosinophils # (0-0.7) k/uL Basophils # (0-0.2) k/uL Sodium (137-145) mmol/L Potassium (3.5-5.1) mmol/L Chloride (98-107) mmol/L Carbon Dioxide (22-30) mmol/L Anion Gap mmol/L BUN (9-20) mg/dL Creatinine (0.66-1.25) mg/dL Est GFR (CKD-EPI)AfAm (>60 ml/min/1.73 sqM) Est GFR (CKD-EPI)NonAf (>60 ml/min/1.73 sqM) Glucose (74-99) mg/dL Lactic Ac Sepsis Rflx Y Plasma Lactic Acid Mahad (0.7-2.0) mmol/L Calcium (8.4-10.2) mg/dL Total Bilirubin (0.2-1.3) mg/dL AST (17-59) U/L ALT (4-49) U/L Alkaline Phosphatase (38-126) U/L C-Reactive Protein (<1.0) mg/dL Total Protein (6.3-8.2) g/dL Albumin (3.5-5.0) g/dL Disposition Clinical Impression: Wound cellulitis, Sepsis Disposition: ADMITTED IP TO [facility] Condition: Stable Decision to Admit Reason: Admit from EC Decision Date: 05/20/24 Decision Time: 12:35
[2024-05-20] MEDS: SODIUM CHLORIDE 0.9% 1,000 ML IV STA ×2 (11:08→12:39)
[2024-05-20 11:29] LABS: Basophils % (A) 0 %; Eosinophils # (A) 0.1 k/uL (0-0.7); Eosinophils % (A) 1 %; HCT 47.5 % (39.0-53.0); HGB 15.9 gm/dL (13.0-17.5); Lymphocytes # (A) 1.5 k/uL (1.0-4.8); Lymphocytes % (A) 14 %; MCH 27.2 pg (25.0-35.0); MCHC 33.4 g/dL (31.0-37.0); MCV 81.3 fL (80.0-100.0); Mean Platelet Volume 8.5; Monocytes # (A) 0.5 k/uL (0-1.0); Monocytes % (A) 5 %; Neutrophils # (A) 8.9 k/uL (1.3-7.7); Neutrophils % (A) 79 %; Platelet Count 333 k/uL (150-450); RBC 5.84 m/uL (4.30-5.90); RDW 15.4 % (11.5-15.5); WBC 11.3 k/uL (3.8-10.6)
[2024-05-20 11:33] LABS: ALT 16 U/L (4-49); AST 24 U/L (17-59); African American GFR (CKD) >90 (>60 ml/min/1.73 sqM); Alkaline Phosphatase 339 U/L (38-126); Anion Gap 9 mmol/L; Blood Urea Nitrogen 19 mg/dL (9-20); Calcium 8.6 mg/dL (8.4-10.2); Carbon Dioxide 28 mmol/L (22-30); Chloride 91 mmol/L (98-107); Glucose 264 mg/dL (74-99); Non-African American GFR(CKD) >90 (>60 ml/min/1.73 sqM); Potassium 4.9 mmol/L (3.5-5.1); Sodium 128 mmol/L (137-145); Total Bilirubin 1.1 mg/dL (0.2-1.3); Total Protein 6.6 g/dL (6.3-8.2)
[2024-05-20 12:33] LABS: C Reactive Protein 20.4 mg/dL (<1.0)
[2024-05-20] MEDS ORDERED: IBUPROFEN 400 MG TAB PO PRN (12:35)
[2024-05-20] MEDS ORDERED: NALOXONE 0.4 MG/ML 1 ML VIAL IV PRN (12:35)
[2024-05-20] MEDS ORDERED: VANCOMYCIN IV PER PHARMACY 1 EACH MISC MISCELLANE PRN (12:38)
[2024-05-20] MEDS ORDERED: NITROGLYCERIN SL TABS 0.4 MG TAB SUBLINGUAL PRN (12:46)
[2024-05-20] MEDS ORDERED: ALBUTEROL NEBULIZED 2.5 MG/3 ML INHALATION PRN (12:46)
[2024-05-20] MEDS: SODIUM CHLORIDE 0.9% 1,000 ML IV SCH (12:50)
[2024-05-20] MEDS: VANCOMYCIN 2,500 MG in SODIUM CHLORIDE 0.9% 500 ML 500 ML IVPB ONE (13:31)
[2024-05-20] MEDS ORDERED: PIPERACILLIN-TAZOBACTAM 4.5 GM in SODIUM CHLORIDE 0.9% 100 ML IVPB STA (13:52)
[2024-05-20 16:58] LABS: Glucose,Whole Blood 143 mg/dL (70-110)
[2024-05-20 17:01] LABS: Erythrocyte Sedimentation Rate 113 mm/Hr (0-15)
[2024-05-20] MEDS: PIPERACILLIN-TAZOBACTAM 3.375 GM in SODIUM CHLORIDE 0.9% 100 ML IVPB STA (17:01)
[2024-05-20] MEDS: INSULIN ASPART (NovoLOG) 100 UNIT/ML VIAL SQ SCH (17:25)
[2024-05-20] MEDS: SUCRALFATE 1 GM TAB PO SCH (17:40)
[2024-05-20] MEDS: PANTOPRAZOLE 40 MG TABLET PO SCH (17:40)
[2024-05-20] MEDS: carvediloL 12.5 MG TAB PO SCH (17:41)
[2024-05-20 20:59] LABS: Glucose,Whole Blood 171 mg/dL (70-110)
--- NOTE | 2024-05-20 21:12 | P.CONS ---
History of Present Illness - Reason for Consult Consult date: 05/20/24 Right lower extremity wound, sepsis Requesting physician: Dora Quinn - Chief Complaint Right lower extremity worsening wound x days - History of Present Illness Patient is a 43-year-old male with a past medical history significant for diabetes mellitus hypertension hyperlipidemia coronary artery disease atrial fibrillation apparently has been dealing with the right lower extremity wound both to the right lower leg and foot area that he has for couple of weeks now and has been recently admitted at [facility] with the patient received 2 weeks of IV antibiotic therapy with subsequent discharged on oral antibiotic however the patient is not clear about the name of that oral antibiotic, patient did went for his wound care treatment today at [facility] [place] patient was noticed to have worsening of the wound and cellulitis concerning for infection and the patient was sent to the ER to be evaluated and admitted for IV antibiotic therapy patient denies high-grade fever or any chills and no fever was recorded on presentation to the hospital patient was not tachycardic or hypoxic and no need for supplemental oxygen patient did have a white count of 11.3 with a left shift creatinine 0.70 lactic acid was 4.1 liver enzymes are normal CRP was 20.4 patient did have blood cultures done he was started on vancomycin infectious disease was consulted for further management of antibiotic therapy Review of Systems Positive point and negatives has been mentioned in the HPI, complete review of systems was performed and all other systems are negative Past Medical History Past Medical History: Atrial Fibrillation, Coronary Artery Disease (CAD), Diabetes Mellitus, Hyperlipidemia, Hypertension Additional Past Medical History / Comment(s): neuropathy Last Myocardial Infarction Date:: 11/20/2020 History of Any Multi-Drug Resistant Organisms: ESBL Year Discovered:: 03/03/21 E. coli ESBL MDRO Source:: Left Foot Past Surgical History: Back Surgery, Heart Catheterization With Stent, Hernia Repair Additional Past Surgical History / Comment(s): 4 cardiac stents 11/20/2020, 1 cardiac stent 11/23/2020 Past Anesthesia/Blood Transfusion Reactions: No Reported Reaction Date of Last Stent Placement:: 2020 Past Psychological History: Depression Smoking Status: Never smoker Past Alcohol Use History: None Reported Past Drug Use History: None Reported - Past Family History Mother Family Medical History: Diabetes Mellitus Father Family Medical History: Congestive Heart Failure (CHF), Coronary Artery Disease (CAD), Diabetes Mellitus, Hypertension, Myocardial Infarction ([place]) Additional Family Medical History / Comment(s): father 2018 from [place] Medications and Allergies Home Medications Medication Instructions Recorded Confirmed Type Atorvastatin [Lipitor] 80 mg PO DAILY 10/12/22 05/20/24 History Pantoprazole [Protonix] 40 mg PO BID 10/12/22 05/20/24 History amLODIPine [Norvasc] 5 mg PO DAILY 10/12/22 05/20/24 History carvediloL [Coreg] 25 mg PO BID 10/12/22 05/20/24 History Albuterol Sulfate [Ventolin HFA] 2 puff INHALATION RT-Q4H PRN 05/15/24 05/20/24 History Apixaban [Eliquis] 5 mg PO BID 05/15/24 05/20/24 History Aspirin 81 mg PO DAILY 05/15/24 05/20/24 History HYDROcodone/APAP 5-325MG [[place] 1 tab PO Q6H PRN 05/15/24 05/20/24 History 5-325] INSULIN ASPART (NovoLOG) [[place] 15 unit SQ TID-W/MEALS 05/15/24 05/20/24 History (formulary)] Insulin Detemir (Levemir) [Levemir] 15 unit SQ BID 05/15/24 05/20/24 History Nitroglycerin Sl Tabs [Nitrostat] 0.4 mg SL Q5M PRN 05/15/24 05/20/24 History Sucralfate [Carafate] 1 gm PO ACHS 05/15/24 05/20/24 History Furosemide [Lasix] 40 mg PO DAILY 05/20/24 05/20/24 History Allergies Allergy/AdvReac Type Severity Reaction Status Date / Time No Known Allergies Allergy Verified 05/20/24 11:03 Physical Exam Vitals: Vital Signs Temp Pulse Resp BP Pulse Ox 05/20/24 16:27 98.8 F 78 18 115/81 95 05/20/24 09:57 97.5 F L 81 18 94/66 98 Intake and Output 05/20/24 05/20/24 05/20/24 06:59 14:59 22:59 Other: Weight 124.738 kg 124.738 kg GENERAL DESCRIPTION: Middle-aged male lying in bed, no distress. No tachypnea or accessory muscle of respiration use. HEENT: Shows Pallor , no scleral icterus. Oral mucous membrane is dry. No pharyngeal erythema or thrush NECK: Trachea central, no thyromegaly. LUNGS: Unlabored breathing. Clear to auscultation anteriorly. No wheeze or crackle. HEART: S1, S2, regular rate and rhythm. No loud murmur ABDOMEN: Soft, no tenderness , guarding or rigidity, no organomegaly EXTREMITIES: Right lower extremity and right foot wound is just dressed by the nursing staff I did review the picture he did have slough tissue to the wound of the right leg and foot area but no foul-smelling drainage SKIN: No rash, no masses palpable. NEUROLOGICAL: The patient is awake, alert, oriented x3, mood and affect normal. Results CBC & Chem 7: 05/20/24 11:07 05/20/24 11:07 Labs: Abnormal Lab Results - Last 24 Hours (Table) 05/20/24 05/20/24 05/20/24 Range/Units 11:07 11:07 11:07 WBC 11.3 H (3.8-10.6) k/uL Neutrophils # 8.9 H (1.3-7.7) k/uL ESR 113 H (0-15) mm/Hr Sodium 128 L (137-145) mmol/L Chloride 91 L (98-107) mmol/L Glucose 264 H (74-99) mg/dL POC Glucose (mg/dL) (70-110) mg/dL Plasma Lactic Acid Mahad 4.1 H* (0.7-2.0) mmol/L Alkaline Phosphatase 339 H (38-126) U/L C-Reactive Protein 20.4 H (<1.0) mg/dL Albumin 3.0 L (3.5-5.0) g/dL 05/20/24 Range/Units 16:56 WBC (3.8-10.6) k/uL Neutrophils # (1.3-7.7) k/uL ESR (0-15) mm/Hr Sodium (137-145) mmol/L Chloride (98-107) mmol/L Glucose (74-99) mg/dL POC Glucose (mg/dL) 143 H (70-110) mg/dL Plasma Lactic Acid Mahad (0.7-2.0) mmol/L Alkaline Phosphatase (38-126) U/L C-Reactive Protein (<1.0) mg/dL Albumin (3.5-5.0) g/dL Assessment and Plan (1) Leg wound, right Current Visit: Yes Status: Acute Code(s): S81.801A - UNSPECIFIED OPEN WOUND, RIGHT LOWER LEG, INITIAL ENCOUNTER SNOMED Code(s): 08665048978563191 (2) Diabetic foot infection Current Visit: Yes Status: Acute Code(s): E11.628 - TYPE 2 DIABETES MELLITUS WITH OTHER SKIN COMPLICATIONS; L08.9 - LOCAL INFECTION OF THE SKIN AND SUBCUTANEOUS TISSUE, UNSP SNOMED Code(s): 134828155 (3) Diabetic foot ulcer Current Visit: No Status: Acute Code(s): E11.621 - TYPE 2 DIABETES MELLITUS WITH FOOT ULCER; L97.509 - NON-PRESSURE CHRONIC ULCER OTH PRT UNSP FOOT W UNSP SEVERITY SNOMED Code(s): 849590578 Plan: 1patient with a chronic nonhealing wound to the right lower extremity including both the leg and the foot area that has been there for couple of weeks with recent admission at [facility] and has been treated with IV device therapy subsequently was discharged on oral antibiotic that apparently was switched to doxycycline by his primary care physician now presenting with worsening wound concerning for wound infection and cellulitis will need to cover for both gram- positive as well as gram-negative pathogen. 2await vascular surgeon evaluation for debridement of the wound and deep culture. 3patient to continue with vancomycin pharmacy to dose however will add cefepime for gram-negative coverage. We will follow on clinical condition and cultures to further adjust medication if needed Thank you for this consultation we will follow the patient along with you Dictation was produced using [employer] dictation software. please excuse any grammatical, word or spelling errors. Time with Patient: Greater than 30
[2024-05-20] MEDS: VANCOMYCIN 2,000 MG in SODIUM CHLORIDE 0.9% 500 ML 500 ML IVPB SCH (21:49)
--- NOTE | 2024-05-20 22:10 | P.HPIM ---
History of Present Illness H&P Date: 05/20/24 HISTORY OF PRESENT ILLNESS: 43-year-old with active medical history of severely uncontrolled type 2 diabetes on insulin, hypertension, hyperlipidemia, atrial fibrillation, chronic neuropathy, history of ESBL with infected right big toe with osteomyelitis post amputation 3 weeks ago in [facility], history of gastrointestinal bleed which patient was transferred recently to [facility] for few days and found to have an osteomyelitis of the left big toe and that having amputation. Patient has been seen in the office for the last few weeks with infected right leg apparently was diagnosed at the time he was seen at [facility] but the medial aspect of the right lower part of the leg along with the posterior area of the foot, the blister and open area become as a stage II ulcerated large area start seen at the wound clinic and today with the wound is much worse and that being sent to the hospital requiring IV antibiotics. Culture was done and obtained patient was started on Zosyn and vancomycin will consult infectious disease along with vascular. Last A1c apparently has been running around 15 with a blood sugar running quite bit high at whole time patient used to see an tafe registrar who he has not seen lately he is quite noncompliant his medication and sometimes in diet which makes controlling his sugars much worse. I had long discussion with him and his plan at this point is to have his wound is stabilized by seen infectious disease along with wound care and vascular and try to do an intensive management for his diabetes while he is in house and as soon as he leaves he need to start seeing endocrinology on more regular basis because the help with wood tank builder and endocrinology will work together as a collaborative care to help to keep his symptoms under control. Patient has not been having any fever or chills was seen in the emergency department on 05/20/2024: Culture was done, his white blood cell was 11,300 with left shifted sed rate was 113 blood sugar was 264 with creatinine 0.7 and GFR above 90 lactic acid initially was 4.1 and C-reactive protein 20.4 alkaline phosphatase 239. Lactic acid after hydration IV antibiotic dropped down to 2.0 patient was stable enough to be hospitalized on IV antibiotics will be seen infectious disease and vascular as a mention might require debridement of the wound site and might benefit from wound VAC into area to help to facilitate his recovery also one of the finding with his lab is mild hyponatremia and hypochloremia at 128 and 91. REVIEW OF SYSTEMS: CONSTITUTIONAL: Well-developed no acute respiratory distress. EYES: No icterus sclerae, no conjunctivitis. EARS, NOSE, MOUTH, THROAT, and FACE: No sore throat, lymphadenopathy, carotid bruits or deformity. RESPIRATORY: No SOB cough or wheezes. CARDIOVASCULAR: No CP, Palpitation, PND, Orthopnea, or angina. GASTROINTESTINAL: No Abd pain, Nausea or vomiting, no Diarrhea or constipation, No GI Bleed, no distention or masses. GENITOURINARY: Negative for Hematuria or UTI, no kidney stones. INTEGUMENT/BREAST: Negative for any muscular injury with mild osteoarthritis.. Extremities: Left big toe amputation with infected right leg lateral side along with the dorsalis part of the foot as well with 2 large areas stage II to stage III. HEMATOLOGIC/LYMPHATIC: Negative for bleed or purpura. MUSCULOSKELTAL: Negative for Myalgia or arthralgia. NEURLOGICAL: No LOC, Sz or syncope, blurred vision dizziness or abnormality.. BEHAVIORAL/PSYCH: Negative. ENDOCRINE: Negative. PHYSICAL EXAMINATION: General Appearance: Alert, cooperative, no distress, appears stated age. Neck HEENT: Supple, no lymphadenopathy, no thyroid enlargement, no carotid bruits. Lungs: Clear to auscultation without crackles or wheezes no rhonchi, no deformity. Chest Wall: Chest wall normal expansion with deep inspiration no tenderness and no deformity was found on exam, no costochondral pain or discomfort. Heart: Regular rate and rhythm, S1, S2 normal, no murmur, rub or gallop. Back: Symmetric, no curvature, ROM normal, no CVA tenderness. Abdomen: Soft, non-tender, bowel sounds active all four quadrants, no masses, no organomegaly. Extremities: Left foot has left big toe amputation, right foot has lateral aspect of large area of slough with ulcerated area stage III major 25 time 12 cm in size and there is another area on the dorsalis part of the foot major 10 time 5 cm again with depth of stage II almost with slight necrotic tissue on the bottom part of the leg. Pulses: 2+ and symmetric. Skin: Skin color, texture, tugor normal, no rashes or lesions. Neurologic: Alert oriented x3 cranial nerves II through XII intact, no motor deficit, no abnormal balance or gait. ASSESSMENT AND PLAN: _Severe nonhealing ulcerated infected right foot and leg into different location in the dorsalis part of the foot to stage II and lateral side of the leg stage III again when asking patient clearly how he developed the spot does not remember any burn or new shoe or an open area no injury he said he woke up 1 day with almost water blister as he was having severe lymphedema causing more expansion and the surface part of the skin distal part of open and started having an infection. Patient be seen infectious disease along with vascular, continue vancomycin along with Zosyn for now till the culture is finalized and back. _Recent osteomyelitis of the left big toe post amputation still recovering from it so far. _Diabetic foot: With nonhealing ulcerated area become slightly bit worse especially with his blood sugar being quite bit high, continue aggressive management, vascular consultation again to check circulation debride the nonheal ing area to granulated circulated good tissue to allow to heal better. _Type 2 diabetes not controlled remain on 2 different type of insulin which is Levemir seems doing 15 units twice a day also still doing NovoLog 15 units AC meals plus sliding scales coverage. Continue to titrate longer acting insulin and try to slow down and short acting insulin. With current medical history patient benefit from SGLT2 product as an addition with product like Jardiance and probably metformin can be a good option as well. Secondary prevention remain on statin but patient will require to be on ARB unless there is a major reaction or interaction. _A-fib with RVR: Remain on Eliquis 5 mg twice a day still on Coreg 25 mg twice daily as well. _Atherosclerotic heart disease: Still seen cardiology remain on medical management with Eliquis, Lipitor, aspirin, Coreg and nitro. _Severe neuropathy: Currently on pain medication only not on any gabapentin or pregabalin but something should consider definitely. _Hyponatremia: Mild most like secondary to severity of infection. _Gastroparesis and severe GERD: Remain on Carafate along with Protonix. _Hypertension: Will continue Coreg 25 mg twice a day, amlodipine 5 mg daily and still on Lasix 40 mg a day. _GI prophylaxis: Continue pantoprazole. _DVT prophylaxis: Patient was started on Lovenox we will hold medication will require any debridement. CODE STATUS: Full code. Admit patient to the inpatient service for more than 2 night stay. Past Medical History Past Medical History: Atrial Fibrillation, Coronary Artery Disease (CAD), Diabetes Mellitus, Hyperlipidemia, Hypertension Additional Past Medical History / Comment(s): neuropathy Last Myocardial Infarction Date:: 11/20/2020 History of Any Multi-Drug Resistant Organisms: ESBL Date of last positivie culture/infection: 03/03/21 E. coli ESBL MDRO Source:: Left Foot Past Surgical History: Back Surgery, Heart Catheterization With Stent, Hernia Repair Additional Past Surgical History / Comment(s): 4 cardiac stents 11/20/2020, 1 cardiac stent 11/23/2020 Past Anesthesia/Blood Transfusion Reactions: No Reported Reaction Past Psychological History: Depression Smoking Status: Never smoker Past Alcohol Use History: None Reported Past Drug Use History: None Reported - Past Family History Mother Family Medical History: Diabetes Mellitus Father Family Medical History: Congestive Heart Failure (CHF), Coronary Artery Disease (CAD), Diabetes Mellitus, Hypertension, Myocardial Infarction ([place]) Additional Family Medical History / Comment(s): father 2018 from [place] Medications and Allergies Home Medications Medication Instructions Recorded Confirmed Type Atorvastatin [Lipitor] 80 mg PO DAILY 10/12/22 05/20/24 History Pantoprazole [Protonix] 40 mg PO BID 10/12/22 05/20/24 History amLODIPine [Norvasc] 5 mg PO DAILY 10/12/22 05/20/24 History carvediloL [Coreg] 25 mg PO BID 10/12/22 05/20/24 History Albuterol Sulfate [Ventolin HFA] 2 puff INHALATION RT-Q4H PRN 05/15/24 05/20/24 History Apixaban [Eliquis] 5 mg PO BID 05/15/24 05/20/24 History Aspirin 81 mg PO DAILY 05/15/24 05/20/24 History HYDROcodone/APAP 5-325MG [[place] 1 tab PO Q6H PRN 05/15/24 05/20/24 History 5-325] INSULIN ASPART (NovoLOG) [NovoLOG 15 unit SQ TID-W/MEALS 05/15/24 05/20/24 History (formulary)] Insulin Detemir (Levemir) [Levemir] 15 unit SQ BID 05/15/24 05/20/24 History Nitroglycerin Sl Tabs [Nitrostat] 0.4 mg SL Q5M PRN 05/15/24 05/20/24 History Sucralfate [Carafate] 1 gm PO ACHS 05/15/24 05/20/24 History Furosemide [Lasix] 40 mg PO DAILY 05/20/24 05/20/24 History Allergies Allergy/AdvReac Type Severity Reaction Status Date / Time No Known Allergies Allergy Verified 05/20/24 11:03 Physical Exam Vitals: Vital Signs Temp Pulse Resp BP Pulse Ox 05/20/24 09:57 97.5 F L 81 18 94/66 98 Intake and Output 05/19/24 05/20/24 05/20/24 22:59 06:59 14:59 Other: Weight 124.738 kg Results CBC & Chem 7: 05/20/24 11:07 05/20/24 11:07 Labs: Abnormal Lab Results - Last 24 Hours (Table) 05/20/24 05/20/24 05/20/24 Range/Units 11:07 11:07 11:07 WBC 11.3 H (3.8-10.6) k/uL Neutrophils # 8.9 H (1.3-7.7) k/uL Sodium 128 L (137-145) mmol/L Chloride 91 L (98-107) mmol/L Glucose 264 H (74-99) mg/dL Plasma Lactic Acid Mahad 4.1 H* (0.7-2.0) mmol/L Alkaline Phosphatase 339 H (38-126) U/L C-Reactive Protein 20.4 H (<1.0) mg/dL Albumin 3.0 L (3.5-5.0) g/dL
[2024-05-21] MEDS: CEFEPIME 2 GM in SODIUM CHLORIDE 0.9% 100 ML IVPB SCH (00:29)
[2024-05-21 06:08] LABS: Glucose,Whole Blood 328 mg/dL (70-110)
[2024-05-21 06:18] LABS: ALT 11 U/L (4-49); AST 18 U/L (17-59); African American GFR (CKD) >90 (>60 ml/min/1.73 sqM); Albumin 2.5 g/dL (3.5-5.0); Alkaline Phosphatase 315 U/L (38-126); Anion Gap 5 mmol/L; Blood Urea Nitrogen 14 mg/dL (9-20); Calcium 7.8 mg/dL (8.4-10.2); Carbon Dioxide 23 mmol/L (22-30); Chloride 98 mmol/L (98-107); Glucose 277 mg/dL (74-99); Non-African American GFR(CKD) >90 (>60 ml/min/1.73 sqM); Potassium 4.1 mmol/L (3.5-5.1); Sodium 126 mmol/L (137-145); Total Protein 5.7 g/dL (6.3-8.2)
[2024-05-21 07:00] LABS: Basophils # (A) 0.1 k/uL (0-0.2); Basophils % (A) 1 %; Eosinophils # (A) 0.2 k/uL (0-0.7); Eosinophils % (A) 2 %; HCT 32.6 % (39.0-53.0); Lymphocytes # (A) 1.6 k/uL (1.0-4.8); Lymphocytes % (A) 17 %; MCH 26.9 pg (25.0-35.0); MCHC 32.6 g/dL (31.0-37.0); MCV 82.4 fL (80.0-100.0); Mean Platelet Volume 8.4; Monocytes # (A) 0.8 k/uL (0-1.0); Monocytes % (A) 8 %; Neutrophils # (A) 6.7 k/uL (1.3-7.7); Neutrophils % (A) 71 %; Platelet Count 315 k/uL (150-450); RBC 3.95 m/uL (4.30-5.90); RDW 15.5 % (11.5-15.5); WBC 9.5 k/uL (3.8-10.6)
[2024-05-21 07:01] LABS: HGB 10.6 gm/dL (13.0-17.5)
[2024-05-21] MEDS: FUROSEMIDE 40 MG TAB PO SCH (09:54)
[2024-05-21] MEDS: ENOXAPARIN 40 MG/0.4 ML SYRINGE SQ SCH (09:54)
[2024-05-21] MEDS: ATORVASTATIN 80 MG TAB PO SCH (09:54)
[2024-05-21] MEDS: amLODIPine 5 MG TAB PO SCH (09:54)
[2024-05-21] MEDS: LINAGLIPTIN 5 MG TABLET PO SCH (10:06)
[2024-05-21] MEDS: INSULIN DETEMIR (LEVEMIR) 100 UNIT/ML SYR SQ SCH (10:06)
--- NOTE | 2024-05-21 11:34 | P.GSCN ---
History of Present Illness Consult date: 05/21/24 Reason for Consult: Right lower extremity wound, decreased cap refill Requesting physician: Dora Quinn History of present illness: This a pleasant 43-year-old male with multiple comorbidities including coronary artery disease with history of STEMI status post PCI of the proximal to mid LAD in October of this year as well as PCI to mid RCA in December of this year, ischemic cardiomyopathy with EF of 35-40%, chronic systolic heart failure, hypertension, diabetes mellitus, obesity with history of left great infection status post amputation. Patient presented to the emergency department concern for nonhealing wounds to his right lower extremity. He states wound started about 1 to 2 months ago. He had been in [facility] for about a month. He had multiple lower extremity workup and arterial ultrasounds ordered according to the patient. He states blood flow was all good. He has been following with the [facility] wound center. He states that he has not had any surgical debridement however they have been doing debridements at the wound center. He denies any fevers or chills. He has been afebrile. Mild leukocytosis on admission with a WBC of 11.3. He was started on IV antibiotics. Infectious diseases following. Wound cultures are pending. He denies any shortness of breath, chest pain, abdominal pain, nausea or vomiting. Review of Systems A 14 point review systems was completed all pertinent positives and negatives as stated in the HPI. Past Medical History Past Medical History: Atrial Fibrillation, Coronary Artery Disease (CAD), Diabetes Mellitus, Hyperlipidemia, Hypertension Additional Past Medical History / Comment(s): neuropathy Last Myocardial Infarction Date:: 11/20/2020 History of Any Multi-Drug Resistant Organisms: ESBL Year Discovered:: 03/03/21 E. coli ESBL MDRO Source:: Left Foot Past Surgical History: Back Surgery, Heart Catheterization With Stent, Hernia Repair Additional Past Surgical History / Comment(s): 4 cardiac stents 11/20/2020, 1 cardiac stent 11/23/2020 Past Anesthesia/Blood Transfusion Reactions: No Reported Reaction Date of Last Stent Placement:: 2020 Past Psychological History: Depression Smoking Status: Never smoker Past Alcohol Use History: None Reported Past Drug Use History: None Reported - Past Family History Mother Family Medical History: Diabetes Mellitus Father Family Medical History: Congestive Heart Failure (CHF), Coronary Artery Disease (CAD), Diabetes Mellitus, Hypertension, Myocardial Infarction ([place]) Additional Family Medical History / Comment(s): father 2018 from [place] Medications and Allergies Home Medications Medication Instructions Recorded Confirmed Type Atorvastatin [Lipitor] 80 mg PO DAILY 10/12/22 05/20/24 History Pantoprazole [Protonix] 40 mg PO BID 10/12/22 05/20/24 History amLODIPine [Norvasc] 5 mg PO DAILY 10/12/22 05/20/24 History carvediloL [Coreg] 25 mg PO BID 10/12/22 05/20/24 History Albuterol Sulfate [Ventolin HFA] 2 puff INHALATION RT-Q4H PRN 05/15/24 05/20/24 History Apixaban [Eliquis] 5 mg PO BID 05/15/24 05/20/24 History Aspirin 81 mg PO DAILY 05/15/24 05/20/24 History HYDROcodone/APAP 5-325MG [[place] 1 tab PO Q6H PRN 05/15/24 05/20/24 History 5-325] INSULIN ASPART (NovoLOG) [NovoLOG 15 unit SQ TID-W/MEALS 05/15/24 05/20/24 History (formulary)] Insulin Detemir (Levemir) [Levemir] 15 unit SQ BID 05/15/24 05/20/24 History Nitroglycerin Sl Tabs [Nitrostat] 0.4 mg SL Q5M PRN 05/15/24 05/20/24 History Sucralfate [Carafate] 1 gm PO ACHS 05/15/24 05/20/24 History Furosemide [Lasix] 40 mg PO DAILY 05/20/24 05/20/24 History Allergies Allergy/AdvReac Type Severity Reaction Status Date / Time No Known Allergies Allergy Verified 05/20/24 11:03 Surgical - Exam Vital Signs Temp Pulse Resp BP Pulse Ox 97.5 F L 81 18 94/66 98 05/20/24 09:57 05/20/24 09:57 05/20/24 09:57 05/20/24 09:57 05/20/24 09:57 General appearance: The patient is alert, oriented, appears in no acute distress. Obese. HET: Head is normocephalic and atraumatic. Pupils are equal and reactive. Neck: Supple. Heart: Regular. Lungs: Equal expansion, normal respiratory effort. Abdomen: Soft, nontender, nondistended. Extremities: Palpable bilateral femoral pulses. Right foot with edema, diabetic wound to the dorsal aspect of right foot with fat exposure, nonviable tissue along edges. Large wound to medial and posterior aspect of right calf with fat exposure. Left foot with great toe amputation. Multiphasic PT and DP signals. Foot warm to the touch with good capillary refill. Neurological: No focal deficits. Alert and oriented. Results - Labs 05/21/24 05:21 05/21/24 05:21 Abnormal Lab Results - Last 24 Hours (Table) 05/20/24 05/20/24 05/20/24 Range/Units 11:07 11:07 11:07 WBC 11.3 H (3.8-10.6) k/uL RBC (4.30-5.90) m/uL Hgb (13.0-17.5) gm/dL Hct (39.0-53.0) % Neutrophils # 8.9 H (1.3-7.7) k/uL ESR 113 H (0-15) mm/Hr Sodium 128 L (137-145) mmol/L Chloride 91 L (98-107) mmol/L Creatinine (0.66-1.25) mg/dL Glucose 264 H (74-99) mg/dL POC Glucose (mg/dL) (70-110) mg/dL Plasma Lactic Acid Mahad 4.1 H* (0.7-2.0) mmol/L Calcium (8.4-10.2) mg/dL Alkaline Phosphatase 339 H (38-126) U/L C-Reactive Protein 20.4 H (<1.0) mg/dL Total Protein (6.3-8.2) g/dL Albumin 3.0 L (3.5-5.0) g/dL Procalcitonin (0.02-0.50) ng/mL 05/20/24 05/20/24 05/20/24 Range/Units 11:07 16:56 20:57 WBC (3.8-10.6) k/uL RBC (4.30-5.90) m/uL Hgb (13.0-17.5) gm/dL Hct (39.0-53.0) % Neutrophils # (1.3-7.7) k/uL ESR (0-15) mm/Hr Sodium (137-145) mmol/L Chloride (98-107) mmol/L Creatinine (0.66-1.25) mg/dL Glucose (74-99) mg/dL POC Glucose (mg/dL) 143 H 171 H (70-110) mg/dL Plasma Lactic Acid Mahad (0.7-2.0) mmol/L Calcium (8.4-10.2) mg/dL Alkaline Phosphatase (38-126) U/L C-Reactive Protein (<1.0) mg/dL Total Protein (6.3-8.2) g/dL Albumin (3.5-5.0) g/dL Procalcitonin 28.40 H (0.02-0.50) ng/mL 05/21/24 05/21/24 05/21/24 Range/Units 05:21 05:21 06:07 WBC (3.8-10.6) k/uL RBC 3.95 L (4.30-5.90) m/uL Hgb 10.6 L D (13.0-17.5) gm/dL Hct 32.6 L (39.0-53.0) % Neutrophils # (1.3-7.7) k/uL ESR (0-15) mm/Hr Sodium 126 L (137-145) mmol/L Chloride (98-107) mmol/L Creatinine 0.58 L (0.66-1.25) mg/dL Glucose 277 H (74-99) mg/dL POC Glucose (mg/dL) 328 H (70-110) mg/dL Plasma Lactic Acid Mahad (0.7-2.0) mmol/L Calcium 7.8 L (8.4-10.2) mg/dL Alkaline Phosphatase 315 H (38-126) U/L C-Reactive Protein (<1.0) mg/dL Total Protein 5.7 L (6.3-8.2) g/dL Albumin 2.5 L (3.5-5.0) g/dL Procalcitonin (0.02-0.50) ng/mL Diabetes panel 05/20/24 05/21/24 Range/Units 11:07 05:21 Sodium 128 L 126 L (137-145) mmol/L Potassium 4.9 4.1 (3.5-5.1) mmol/L Chloride 91 L 98 (98-107) mmol/L Carbon Dioxide 28 23 (22-30) mmol/L BUN 19 14 (9-20) mg/dL Creatinine 0.70 0.58 L (0.66-1.25) mg/dL Glucose 264 H 277 H (74-99) mg/dL Calcium 8.6 7.8 L (8.4-10.2) mg/dL AST 24 18 (17-59) U/L ALT 16 11 (4-49) U/L Alkaline Phosphatase 339 H 315 H (38-126) U/L Total Protein 6.6 5.7 L (6.3-8.2) g/dL Albumin 3.0 L 2.5 L (3.5-5.0) g/dL Calcium panel 05/20/24 05/21/24 Range/Units 11:07 05:21 Calcium 8.6 7.8 L (8.4-10.2) mg/dL Albumin 3.0 L 2.5 L (3.5-5.0) g/dL Pituitary panel 05/20/24 05/21/24 Range/Units 11:07 05:21 Sodium 128 L 126 L (137-145) mmol/L Potassium 4.9 4.1 (3.5-5.1) mmol/L Chloride 91 L 98 (98-107) mmol/L Carbon Dioxide 28 23 (22-30) mmol/L BUN 19 14 (9-20) mg/dL Creatinine 0.70 0.58 L (0.66-1.25) mg/dL Glucose 264 H 277 H (74-99) mg/dL Calcium 8.6 7.8 L (8.4-10.2) mg/dL Adrenal panel 05/20/24 05/21/24 Range/Units 11:07 05:21 Sodium 128 L 126 L (137-145) mmol/L Potassium 4.9 4.1 (3.5-5.1) mmol/L Chloride 91 L 98 (98-107) mmol/L Carbon Dioxide 28 23 (22-30) mmol/L BUN 19 14 (9-20) mg/dL Creatinine 0.70 0.58 L (0.66-1.25) mg/dL Glucose 264 H 277 H (74-99) mg/dL Calcium 8.6 7.8 L (8.4-10.2) mg/dL Total Bilirubin 1.1 1.0 (0.2-1.3) mg/dL AST 24 18 (17-59) U/L ALT 16 11 (4-49) U/L Alkaline Phosphatase 339 H 315 H (38-126) U/L Total Protein 6.6 5.7 L (6.3-8.2) g/dL Albumin 3.0 L 2.5 L (3.5-5.0) g/dL Assessment and Plan Assessment: 1. Right lower extremity chronic diabetic wounds 2. Diabetes mellitus 3. Recent osteomyelitis left great toe status post amputation 4. Atrial fibrillation with RVR, on Eliquis currently on hold, patient getting Lovenox 5. Coronary artery disease 6. Peripheral neuropathy Plan: 1. Continue antibiotics per infectious disease 2. Local wound care per wound clinic 3. N.p.o. after midnight 4. Hold Lovenox 5. Will plan for right lower extremity debridement tomorrow 6. Rest of medical management per primary medical team Thank you for this consultation, we will continue to follow. The impression and plan of care has been dictated as directed. I performed a history and examination of this patient, discussed the same with the dictator. I agree with the dictator's note ,documented as a scribe. Any additional findings or plans will be noted.
[2024-05-21 12:14] LABS: Glucose,Whole Blood 310 mg/dL (70-110)
[2024-05-21] MEDS: INSULIN ASPART (NovoLOG) 100 UNIT/ML VIAL SQ SCH (13:04)
--- NOTE | 2024-05-21 15:49 | P.PN ---
Subjective Progress Note Date: 05/21/24 Principal diagnosis: Reason for follow-up is right lower extremity and foot wound Patient is a 43-year-old male with a past medical history significant for diabetes mellitus hypertension hyperlipidemia coronary artery disease atrial fibrillation apparently has been dealing with the right lower extremity wound both to the right lower leg and foot area that he has for couple of weeks being admitted to hospital with worsening wound and concern for infection. On today's evaluation that is 05/21/2024, patient has been afebrile, patient is breathing comfortably and is currently on room air, patient denies having any significant cough no chest pain, patient denies nausea vomiting or diarrhea and no abdominal pain, denies any worsening pain to the right lower extremity wound. Patient white count is 9.5 creatinine 0.58 Objective - Vital Signs Vital signs: Vital Signs Temp 98.5 F 05/21/24 07:00 Pulse 78 05/21/24 07:00 Resp 18 05/21/24 07:00 BP 108/73 05/21/24 07:00 Pulse Ox 94 L 05/21/24 07:00 FiO2 Intake & Output 05/20/24 05/21/24 05/21/24 18:59 06:59 18:59 Output Total 600 Balance -600 Weight 124.738 kg 124.738 kg Output: Urine 600 Other: Voiding Method Urinal Urinal - Exam Middle-age male lying in bed in no distress No tachypnea or accessory muscle respiration use Unlabored breathing. Patient did have right lower extremity wound with slough and some necrotic tissue at the base and also have a similar wound on the right foot - Labs CBC & Chem 7: 05/21/24 05:21 05/21/24 05:21 Labs: Abnormal Lab Results - Last 24 Hours (Table) 05/20/24 05/20/24 05/20/24 Range/Units 11:07 11:07 11:07 RBC (4.30-5.90) m/uL Hgb (13.0-17.5) gm/dL Hct (39.0-53.0) % ESR 113 H (0-15) mm/Hr Sodium (137-145) mmol/L Creatinine (0.66-1.25) mg/dL Glucose (74-99) mg/dL POC Glucose (mg/dL) (70-110) mg/dL Hemoglobin A1c (<=6.0) % Plasma Lactic Acid Mahad 4.1 H* (0.7-2.0) mmol/L Calcium (8.4-10.2) mg/dL Alkaline Phosphatase (38-126) U/L C-Reactive Protein 20.4 H (<1.0) mg/dL Total Protein (6.3-8.2) g/dL Albumin (3.5-5.0) g/dL Procalcitonin (0.02-0.50) ng/mL 05/20/24 05/20/24 05/20/24 Range/Units 11:07 16:56 20:57 RBC (4.30-5.90) m/uL Hgb (13.0-17.5) gm/dL Hct (39.0-53.0) % ESR (0-15) mm/Hr Sodium (137-145) mmol/L Creatinine (0.66-1.25) mg/dL Glucose (74-99) mg/dL POC Glucose (mg/dL) 143 H 171 H (70-110) mg/dL Hemoglobin A1c (<=6.0) % Plasma Lactic Acid Mahad (0.7-2.0) mmol/L Calcium (8.4-10.2) mg/dL Alkaline Phosphatase (38-126) U/L C-Reactive Protein (<1.0) mg/dL Total Protein (6.3-8.2) g/dL Albumin (3.5-5.0) g/dL Procalcitonin 28.40 H (0.02-0.50) ng/mL 05/21/24 05/21/24 05/21/24 Range/Units 05:21 05:21 05:21 RBC 3.95 L (4.30-5.90) m/uL Hgb 10.6 L D (13.0-17.5) gm/dL Hct 32.6 L (39.0-53.0) % ESR (0-15) mm/Hr Sodium 126 L (137-145) mmol/L Creatinine 0.58 L (0.66-1.25) mg/dL Glucose 277 H (74-99) mg/dL POC Glucose (mg/dL) (70-110) mg/dL Hemoglobin A1c 12.8 H (<=6.0) % Plasma Lactic Acid Mahad (0.7-2.0) mmol/L Calcium 7.8 L (8.4-10.2) mg/dL Alkaline Phosphatase 315 H (38-126) U/L C-Reactive Protein (<1.0) mg/dL Total Protein 5.7 L (6.3-8.2) g/dL Albumin 2.5 L (3.5-5.0) g/dL Procalcitonin (0.02-0.50) ng/mL 05/21/24 Range/Units 06:07 RBC (4.30-5.90) m/uL Hgb (13.0-17.5) gm/dL Hct (39.0-53.0) % ESR (0-15) mm/Hr Sodium (137-145) mmol/L Creatinine (0.66-1.25) mg/dL Glucose (74-99) mg/dL POC Glucose (mg/dL) 328 H (70-110) mg/dL Hemoglobin A1c (<=6.0) % Plasma Lactic Acid Mahad (0.7-2.0) mmol/L Calcium (8.4-10.2) mg/dL Alkaline Phosphatase (38-126) U/L C-Reactive Protein (<1.0) mg/dL Total Protein (6.3-8.2) g/dL Albumin (3.5-5.0) g/dL Procalcitonin (0.02-0.50) ng/mL Microbiology - Last 24 Hours (Table) 05/20/24 22:00 Gram Stain - Preliminary Leg - Right Assessment and Plan (1) Leg wound, right Current Visit: Yes Status: Acute Code(s): S81.801A - UNSPECIFIED OPEN WOUND, RIGHT LOWER LEG, INITIAL ENCOUNTER SNOMED Code(s): 66881670987498548 (2) Diabetic foot infection Current Visit: Yes Status: Acute Code(s): E11.628 - TYPE 2 DIABETES MELLITUS WITH OTHER SKIN COMPLICATIONS; L08.9 - LOCAL INFECTION OF THE SKIN AND SUBCUTANEOUS TISSUE, UNSP SNOMED Code(s): 001087977 (3) Diabetic foot ulcer Current Visit: No Status: Acute Code(s): E11.621 - TYPE 2 DIABETES MELLITUS WITH FOOT ULCER; L97.509 - NON-PRESSURE CHRONIC ULCER OTH PRT UNSP FOOT W UNSP SEVERITY SNOMED Code(s): 724865364 Plan: 1patient with a chronic nonhealing wound to the right lower extremity including both the leg and the foot area that has been there for couple of weeks with recent admission at [facility] and has been treated with IV device therapy subsequently was discharged on oral antibiotic that apparently was switched to doxycycline by his primary care physician now presenting with worsening wound concerning for wound infection and cellulitis will need to cover for both gram- positive as well as gram-negative pathogen. 2patient has been evaluated by vascular surgery and plan is for debridement of the wound and deep culture tomorrow. 3patient to continue with vancomycin pharmacy to dose and cefepime while waiting for the culture to finalize Dictation was produced using [employer] dictation software. please excuse any grammatical, word or spelling errors. Time with Patient: Less than 30
[2024-05-21 17:21] LABS: Glucose,Whole Blood 150 mg/dL (70-110)
[2024-05-21] MEDS: VANCOMYCIN 2,000 MG in SODIUM CHLORIDE 0.9% 500 ML 500 ML IVPB SCH (17:26)
[2024-05-21] MEDS: ACETAMINOPHEN TAB 325 MG TAB PO PRN (17:39)
[2024-05-21 20:14] LABS: Glucose,Whole Blood 136 mg/dL (70-110)
--- NOTE | 2024-05-21 21:27 | P.PN ---
Subjective Progress Note Date: 05/21/24 HISTORY OF PRESENT ILLNESS: 43-year-old with active medical history of severely uncontrolled type 2 diabetes on insulin, hypertension, hyperlipidemia, atrial fibrillation, chronic neuropathy, history of ESBL with infected right big toe with osteomyelitis post amputation 3 weeks ago in [facility], history of gastrointestinal bleed which patient was transferred recently to [facility] for few days and found to have an osteomyelitis of the left big toe and that having amputation. Patient has been seen in the office for the last few weeks with infected right leg apparently was diagnosed at the time he was seen at [facility] but the medial aspect of the right lower part of the leg along with the posterior area of the foot, the blister and open area become as a stage II ulcerated large area start seen at the wound clinic and today with the wound is much worse and that being sent to the hospital requiring IV antibiotics. Culture was done and obtained patient was started on Zosyn and vancomycin will consult infectious disease along with vascular. Last A1c apparently has been running around 15 with a blood sugar running quite bit high at whole time patient used to see an mica inspector who he has not seen lately he is quite noncompliant his medication and sometimes in diet which makes controlling his sugars much worse. I had long discussion with him and his plan at this point is to have his wound is stabilized by seen infectious disease along with wound care and vascular and try to do an intensive management for his diabetes while he is in house and as soon as he leaves he need to start seeing endocrinology on more regular basis because the help with commercial lawn specialist and endocrinology will work together as a collaborative care to help to keep his symptoms under control. Patient has not been having any fever or chills was seen in the emergency department on 05/20/2024: Culture was done, his white blood cell was 11,300 with left shifted sed rate was 113 blood sugar was 264 with creatinine 0.7 and GFR above 90 lactic acid initially was 4.1 and C-reactive protein 20.4 alkaline phosphatase 239. Lactic acid after hydration IV antibiotic dropped down to 2.0 patient was stable enough to be hospitalized on IV antibiotics will be seen infe ctious disease and vascular as a mention might require debridement of the wound site and might benefit from wound VAC into area to help to facilitate his recovery also one of the finding with his lab is mild hyponatremia and hypochloremia at 128 and 91. 05/21/2024: Antibiotic was switched to cefepime and vancomycin after seen yesterday, patient was seen vascular today and prepare for debridement of the lower extremity recent osteomyelitis of the left great toe post amputation is healing well agreed to continue on IV antibiotic for now and debridement was planned for tomorrow. Infectious disease agree with the current plan specially with the wound care that to continue vancomycin along with cefepime till the final culture is back that will give him better coverage for gram-positive and gram-negative bacteria. REVIEW OF SYSTEMS: CONSTITUTIONAL: Well-developed no acute respiratory distress. EYES: No icterus sclerae, no conjunctivitis. EARS, NOSE, MOUTH, THROAT, and FACE: No sore throat, lymphadenopathy, carotid bruits or deformity. RESPIRATORY: No SOB cough or wheezes. CARDIOVASCULAR: No CP, Palpitation, PND, Orthopnea, or angina. GASTROINTESTINAL: No Abd pain, Nausea or vomiting, no Diarrhea or constipation, No GI Bleed, no distention or masses. GENITOURINARY: Negative for Hematuria or UTI, no kidney stones. INTEGUMENT/BREAST: Negative for any muscular injury with mild osteoarthritis.. Extremities: Left big toe amputation with infected right leg lateral side along with the dorsalis part of the foot as well with 2 large areas stage II to stage III. HEMATOLOGIC/LYMPHATIC: Negative for bleed or purpura. MUSCULOSKELTAL: Negative for Myalgia or arthralgia. NEURLOGICAL: No LOC, Sz or syncope, blurred vision dizziness or abnormality.. BEHAVIORAL/PSYCH: Negative. ENDOCRINE: Negative. PHYSICAL EXAMINATION: General Appearance: Alert, cooperative, no distress, appears stated age. Neck HEENT: Supple, no lymphadenopathy, no thyroid enlargement, no carotid bruits. Lungs: Clear to auscultation without crackles or wheezes no rhonchi, no deformity. Chest Wall: Chest wall normal expansion with deep inspiration no tenderness and no deformity was found on exam, no costochondral pain or discomfort. Heart: Regular rate and rhythm, S1, S2 normal, no murmur, rub or gallop. Back: Symmetric, no curvature, ROM normal, no CVA tenderness. Abdomen: Soft, non-tender, bowel sounds active all four quadrants, no masses, no organomegaly. Extremities: Left foot has left big toe amputation, right foot has lateral aspect of large area of slough with ulcerated area stage III major 25 time 12 cm in size and there is another area on the dorsalis part of the foot major 10 time 5 cm again with depth of stage II almost with slight necrotic tissue on the bottom part of the leg. Pulses: 2+ and symmetric. Skin: Skin color, texture, tugor normal, no rashes or lesions. Neurologic: Alert oriented x3 cranial nerves II through XII intact, no motor deficit, no abnormal balance or gait. ASSESSMENT AND PLAN: _Severe nonhealing ulcerated infected right foot and leg with 2 large different location lower part of the leg stage III and dorsalis part of the foot with stage II, culture was done and remain on antibiotic with vancomycin and cefepime until debridement done by vascular hopefully by tomorrow. _Recent osteomyelitis of the left big toe post amputation still recovering from it so far. _Diabetic foot: With nonhealing ulcerated area become slightly bit worse especially with his blood sugar being quite bit high, continue aggressive management, vascular consultation again to check circulation debride the nonhealing area to granulated circulated good tissue to allow to heal better. Will continue cefepime and vancomycin. _Type 2 diabetes not controlled with A1c major from today at 12.8, remain on 2 different type of insulin which is Levemir seems doing 15 units twice a day also still doing NovoLog 15 units AC meals plus sliding scales coverage. Continue to titrate longer acting insulin and try to slow down and short acting insulin. With current medical history patient benefit from SGLT2 product as an addition with product like Jardiance and probably metformin can be a good option as well. Secondary prevention remain on statin but patient will require to be on ARB unless there is a major reaction or interaction. Continue insulin titrate dose higher but still watch for any Hypoglycemia because blood sugars fluctuate sometimes up to 300 but can swing down to the low 100. _A-fib with RVR: Remain on Eliquis 5 mg twice a day still on Coreg 25 mg twice daily as well. Hold Eliquis till after debridement is done. _Atherosclerotic heart disease: Still seen cardiology remain on medical management with Eliquis, Lipitor, aspirin, Coreg and nitro. _Severe neuropathy: Currently on pain medication only not on any gabapentin or pregabalin but something should consider definitely. _Hyponatremia: Mild most like secondary to severity of infection. _Gastroparesis and severe GERD: Remain on Carafate along with Protonix. _Hypertension: Will continue Coreg 25 mg twice a day, amlodipine 5 mg daily and still on Lasix 40 mg a day. _GI prophylaxis: Continue pantoprazole. Discussion: Continue IV antibiotics, continue topical care and wound care patient be going for debridement therapy and awaiting for the final culture before change antibiotics. Better management of blood sugar for now and further arrangement for wound care, endocrinology, and infectious disease follow-up will be done. Objective - Vital Signs Vital signs: Vital Signs Temp 98.1 F 05/21/24 01:17 Pulse 74 05/21/24 01:17 Resp 16 05/21/24 01:17 BP 110/74 05/21/24 01:17 Pulse Ox 95 05/21/24 01:17 FiO2 Intake & Output 05/20/24 05/20/24 05/21/24 06:59 18:59 06:59 Output Total 600 Balance -600 Weight 124.738 kg 124.738 kg Output: Urine 600 Other: Voiding Method Urinal - Labs CBC & Chem 7: 05/21/24 05:21 05/21/24 05:21 Labs: Abnormal Lab Results - Last 24 Hours (Table) 05/20/24 05/20/24 05/20/24 Range/Units 11:07 11:07 11:07 WBC 11.3 H (3.8-10.6) k/uL Neutrophils # 8.9 H (1.3-7.7) k/uL ESR 113 H (0-15) mm/Hr Sodium 128 L (137-145) mmol/L Chloride 91 L (98-107) mmol/L Glucose 264 H (74-99) mg/dL POC Glucose (mg/dL) (70-110) mg/dL Plasma Lactic Acid Mahad 4.1 H* (0.7-2.0) mmol/L Alkaline Phosphatase 339 H (38-126) U/L C-Reactive Protein 20.4 H (<1.0) mg/dL Albumin 3.0 L (3.5-5.0) g/dL Procalcitonin (0.02-0.50) ng/mL 05/20/24 05/20/24 05/20/24 Range/Units 11:07 16:56 20:57 WBC (3.8-10.6) k/uL Neutrophils # (1.3-7.7) k/uL ESR (0-15) mm/Hr Sodium (137-145) mmol/L Chloride (98-107) mmol/L Glucose (74-99) mg/dL POC Glucose (mg/dL) 143 H 171 H (70-110) mg/dL Plasma Lactic Acid Mahad (0.7-2.0) mmol/L Alkaline Phosphatase (38-126) U/L C-Reactive Protein (<1.0) mg/dL Albumin (3.5-5.0) g/dL Procalcitonin 28.40 H (0.02-0.50) ng/mL
[2024-05-22 05:52] LABS: Glucose,Whole Blood 198 mg/dL (70-110)
[2024-05-22 07:40] LABS: ALT 10 U/L (4-49); AST 17 U/L (17-59); African American GFR (CKD) >90 (>60 ml/min/1.73 sqM); Albumin 2.4 g/dL (3.5-5.0); Albumin/Globulin Ratio 0.7; Alkaline Phosphatase 297 U/L (38-126); Anion Gap 7 mmol/L; Blood Urea Nitrogen 9 mg/dL (9-20); Calcium 8.1 mg/dL (8.4-10.2); Carbon Dioxide 22 mmol/L (22-30); Chloride 102 mmol/L (98-107); Globulin 3.3 g/dL; Glucose 207 mg/dL (74-99); Non-African American GFR(CKD) >90 (>60 ml/min/1.73 sqM); Potassium 4.3 mmol/L (3.5-5.1); Sodium 131 mmol/L (137-145); Total Protein 5.7 g/dL (6.3-8.2)
[2024-05-22] MEDS: VANCOMYCIN TROUGH DUE 1 EACH MISC MISCELLANE ONE (10:20)
[2024-05-22 10:45] LABS: HGB 9.9 g/dL (13.0-17.0); MCHC 31.9 g/dL (32.0-37.0); MCV 81.4 FL (80.0-97.0); Mean Platelet Volume 10.7 FL (9.5-12.2); NRBC Per 100 WBC 0 X 10*3/uL (0.00-0.01); Platelet Count 357 X 10*3/uL (140-440); RBC 3.81 X 10*6/uL (4.40-5.60); WBC 11.46 X 10*3/uL (4.50-10.00)
--- NOTE | 2024-05-22 11:27 | P.CONS ---
History of Present Illness - Reason for Consult Consult date: 05/22/24 wound care - History of Present Illness This is a 43-year-old patient who is following in the wound care center for nonhealing ulceration to the right dorsal foot right medial calf and left great toe amputation site. Patient was seen on Monday and directed to go to the emergency room due to him feeling unwell a new ulceration to the right medial calf superior to the previous ulceration with significant necrotic tissue noted. Wound care plan was for a surgical debridement with application of a negative pressure wound VAC in outpatient setting however due to the patient's health and comorbidities he was instructed to go to the emergency department for evaluation. Patient was agreeableOriginal cause of wound was Gradually Appeared. The date acquired was: 04/08/2024. The wound has been in treatment 3 weeks. The wound is currently classified as a Unable to visualize wound bed wound with etiologies of Diabetic Wound/Ulcer of the Lower Extremity and Necrotizing Infection and is located on the Right,Dorsal Foot. The wound measures 3.1cm length x 4.9cm width x 1cm depth; 11.93cm^2 area and 11.93cm^3 volume. There is bone, joint, muscle, tendon, Fat Layer (Subcutaneous Tissue), and fascia exposed. There is no tunneling or undermining noted. There is a medium amount of serosanguineous drainage noted. The wound margin is distinct with the outline attached to the wound base. There is no granulation within the wound bed. There is a large (67-100%) amount of necrotic tissue within the wound bed including Eschar. The periwound skin appearance exhibited: Scarring, Dry/Scaly, Erythema. The periwound skin appearance did not exhibit: Callus, Crepitus, Excoriation, Induration, Rash, Maceration, Atrophie Hackberry, Cyanosis, Ecchymosis, Hemosiderin Staining, Mottled, Pallor, Rubor. The surrounding wound skin color is noted with erythema which is circumferential. Periwound temperature was noted as No Abnormality. Original cause of wound was Gradually Appeared. The date acquired was: 04/01/2024. The wound has been in treatment 3 weeks. The wound is currently classified as a Unable to visualize wound bed wound with etiologies of Diabetic Wound/Ulcer of the Lower Extremity and Necrotizing Infection and is located on the Right,Medial Lower Leg. The wound measures 10.1cm length x 9.6cm width x 1cm depth; 76.152cm^2 area and 76.152cm^3 volume. There is muscle, Fat Layer (Subcutaneous Tissue), and fascia exposed. T here is no tunneling or undermining noted. There is a large amount of serosanguineous drainage noted. The wound margin is distinct with the outline attached to the wound base. There is no granulation within the wound bed. There is a large (67-100%) amount of necrotic tissue within the wound bed including Eschar. The periwound skin appearance exhibited: Scarring, Erythema. The periwound skin appearance did not exhibit: Callus, Crepitus, Excoriation, Induration, Rash, Dry/Scaly, Maceration, Atrophie Aretha, Cyanosis, Ecchymosis, Hemosiderin Staining, Mottled, Pallor, Rubor. The surrounding wound skin color is noted with erythema which is circumferential. Periwound temperature was noted as No Abnormality. Original cause of wound was Surgical Injury. The date acquired was: 04/01/2024. The wound has been in treatment 3 weeks. The wound is currently classified as a Grade 4 wound with etiologies of Diabetic Wound/Ulcer of the Lower Extremity and Dehisced Wound and is located on the Left Amputation Site - Toe. The wound measures 0.6cm length x 0.3cm width x 1cm depth; 0.141cm^2 area and 0.141cm^3 volume. There is Fat Layer (Subcutaneous Tissue) exposed. There is no tunneling or undermining noted. There is a medium amount of serosanguineous drainage noted. The wound margin is indistinct and nonvisible. There is large (67-100%) red granulation within the wound bed. There is a small (1-33%) amount of necrotic tissue within the wound bed. The periwound skin appearance exhibited: Scarring, Erythema. The periwound skin appearance did not exhibit: Callus, Crepitus, Excoriation, Induration, Rash, Dry/Scaly, Maceration, Atrophie Hackberry, Cyanosis, Ecchymosis, Hemosiderin Staining, Mottled, Pallor, Rubor. The surrounding wound skin color is noted with erythema which is circumferential. Periwound temperature was noted as No Abnormality. Review Of Systems: Constitutional: No fever, no chills, no night sweats. No weight change. No weakness, fatigue or lethargy. No daytime sleepiness. Integumentary:reports wounds, no lesions. No rash or pruritus. No unusual bruising. No change in hair or nails. Physical exam: General Appearance: Alert, cooperative, no distress, appears stated age. Skin: See HPI all other Skin color, texture, tugor normal, no rashes or lesions. Neurologic: Alert oriented x3 Assessment: 1.Non-pressure chronic ulcer of other part of left foot with bone involvement without evidence of necrosis 2. Non-pressure chronic ulcer of other part of right foot with fat layer exposed 3. Non-pressure chronic ulcer of other part of right lower leg with fat layer exposed 4. Type 2 diabetes mellitus with foot ulcer 5. Type 2 diabetes mellitus with other skin ulcer 6. Lymphedema, not elsewhere classified Plan: 1. Patient is scheduled for surgical debridement with possible application of negative pressure wound VAC. We will see the patient upon discharge for con tinuation of wound care. Thank you for the consultation any questions please contact the wound care center DNP note has been reviewed and discussed with Dr. Schofield and the impression and plan of care has been directed as dictated. Past Medical History Past Medical History: Atrial Fibrillation, Coronary Artery Disease (CAD), Diabetes Mellitus, Hyperlipidemia, Hypertension Additional Past Medical History / Comment(s): neuropathy Last Myocardial Infarction Date:: 11/20/2020 History of Any Multi-Drug Resistant Organisms: ESBL Year Discovered:: 03/03/21 E. coli ESBL MDRO Source:: Left Foot Past Surgical History: Back Surgery, Heart Catheterization With Stent, Hernia Repair Additional Past Surgical History / Comment(s): 4 cardiac stents 11/20/2020, 1 cardiac stent 11/23/2020 Past Anesthesia/Blood Transfusion Reactions: No Reported Reaction Date of Last Stent Placement:: 2020 Past Psychological History: Depression Smoking Status: Never smoker Past Alcohol Use History: None Reported Past Drug Use History: None Reported - Past Family History Mother Family Medical History: Diabetes Mellitus Father Family Medical History: Congestive Heart Failure (CHF), Coronary Artery Disease (CAD), Diabetes Mellitus, Hypertension, Myocardial Infarction ([place]) Additional Family Medical History / Comment(s): father 2018 from [place] Medications and Allergies Home Medications Medication Instructions Recorded Confirmed Type Atorvastatin [Lipitor] 80 mg PO DAILY 10/12/22 05/20/24 History Pantoprazole [Protonix] 40 mg PO BID 10/12/22 05/20/24 History amLODIPine [Norvasc] 5 mg PO DAILY 10/12/22 05/20/24 History carvediloL [Coreg] 25 mg PO BID 10/12/22 05/20/24 History Albuterol Sulfate [Ventolin HFA] 2 puff INHALATION RT-Q4H PRN 05/15/24 05/20/24 History Apixaban [Eliquis] 5 mg PO BID 05/15/24 05/20/24 History Aspirin 81 mg PO DAILY 05/15/24 05/20/24 History HYDROcodone/APAP 5-325MG [[place] 1 tab PO Q6H PRN 05/15/24 05/20/24 History 5-325] INSULIN ASPART (NovoLOG) [NovoLOG 15 unit SQ TID-W/MEALS 05/15/24 05/20/24 History (formulary)] Insulin Detemir (Levemir) [Levemir] 15 unit SQ BID 05/15/24 05/20/24 History Nitroglycerin Sl Tabs [Nitrostat] 0.4 mg SL Q5M PRN 05/15/24 05/20/24 History Sucralfate [Carafate] 1 gm PO ACHS 05/15/24 05/20/24 History Furosemide [Lasix] 40 mg PO DAILY 05/20/24 05/20/24 History Allergies Allergy/AdvReac Type Severity Reaction Status Date / Time No Known Allergies Allergy Verified 05/20/24 11:03 Physical Exam Vitals: Vital Signs Temp Pulse Resp BP Pulse Ox 05/22/24 07:00 99.4 F 80 17 137/87 94 L 05/22/24 02:11 98.9 F 77 17 132/81 97 05/21/24 19:23 98.1 F 83 17 101/64 94 L 05/21/24 14:20 98.8 F 67 16 118/78 94 L Intake and Output 05/21/24 05/22/24 05/22/24 22:59 06:59 14:59 Intake Total 118 Output Total 300 875 375 Balance -942 -879 -257 Intake: Oral 118 Output: Urine 300 875 375 Results CBC & Chem 7: 05/22/24 06:51 05/22/24 06:51 Labs: Abnormal Lab Results - Last 24 Hours (Table) 05/21/24 05/21/24 05/21/24 Range/Units 12:12 17:20 20:12 WBC (4.50-10.00) X 10*3/uL RBC (4.40-5.60) X 10*6/uL Hgb (13.0-17.0) g/dL Hct (39.6-50.0) % MCH (27.0-32.0) pg MCHC (32.0-37.0) g/dL RDW (11.5-14.5) % Sodium (137-145) mmol/L Creatinine (0.66-1.25) mg/dL Glucose (74-99) mg/dL POC Glucose (mg/dL) 310 H 150 H 136 H (70-110) mg/dL Calcium (8.4-10.2) mg/dL Alkaline Phosphatase (38-126) U/L Total Protein (6.3-8.2) g/dL Albumin (3.5-5.0) g/dL 05/22/24 05/22/24 05/22/24 Range/Units 05:51 06:51 06:51 WBC 11.46 H (4.50-10.00) X 10*3/uL RBC 3.81 L (4.40-5.60) X 10*6/uL Hgb 9.9 L (13.0-17.0) g/dL Hct 31.0 L (39.6-50.0) % MCH 26.0 L (27.0-32.0) pg MCHC 31.9 L (32.0-37.0) g/dL RDW 15.0 H (11.5-14.5) % Sodium 131 L (137-145) mmol/L Creatinine 0.48 L (0.66-1.25) mg/dL Glucose 207 H (74-99) mg/dL POC Glucose (mg/dL) 198 H (70-110) mg/dL Calcium 8.1 L (8.4-10.2) mg/dL Alkaline Phosphatase 297 H (38-126) U/L Total Protein 5.7 L (6.3-8.2) g/dL Albumin 2.4 L (3.5-5.0) g/dL Microbiology - Last 24 Hours (Table) 05/20/24 22:00 Gram Stain - Preliminary Leg - Right Wound Culture - Preliminary Gram Neg Bacilli 05/20/24 11:07 Blood Culture - Preliminary Blood Assessment and Plan (1) Non-pressure chronic ulcer of other part of left foot with bone involvement without evidence of necrosis Current Visit: Yes Status: Acute Code(s): L97.526 - NON-PRS CHR ULC OTH PRT L FOOT WITH BNE INVL W/O EVD OF NECR SNOMED Code(s): 54904926583377402 (2) Non-pressure chronic ulcer of other part of right foot with fat layer expose d Current Visit: Yes Status: Acute Code(s): L97.512 - NON-PRS CHRONIC ULCER OTH PRT RIGHT FOOT W FAT LAYER EXPOSED SNOMED Code(s): 84080127183639731 (3) Non-pressure chronic ulcer of other part of right lower leg with fat layer exposed Current Visit: Yes Status: Acute Code(s): L97.812 - NON-PRS CHRONIC ULCER OTH PRT R LOW LEG W FAT LAYER EXPOSED SNOMED Code(s): 54695061909326318 (4) Type 2 diabetes mellitus with foot ulcer Current Visit: Yes Status: Acute Code(s): E11.621 - TYPE 2 DIABETES MELLITUS WITH FOOT ULCER; L97.509 - NON-PRESSURE CHRONIC ULCER OTH PRT UNSP FOOT W UNSP SEVERITY SNOMED Code(s): 5183362054503 (5) Type 2 diabetes mellitus with other skin ulcer Current Visit: Yes Status: Acute Code(s): E11.622 - TYPE 2 DIABETES MELLITUS WITH OTHER SKIN ULCER; L98.499 - NON-PRESSURE CHRONIC ULCER OF SKIN OF SITES W UNSP SEVERITY SNOMED Code(s): 743737728384983 (6) Lymphedema, not elsewhere classified Current Visit: Yes Status: Acute Code(s): I89.0 - LYMPHEDEMA, NOT ELSEWHERE CLASSIFIED SNOMED Code(s): 893429001
[2024-05-22 12:17] LABS: Glucose,Whole Blood 241 mg/dL (70-110)
[2024-05-22] MEDS ORDERED: HYDROmorphone 0.5 MG/0.5 ML SYRINGE IVP PRN (13:00)
[2024-05-22] MEDS: IV FLUID CONTINUATION 1,000 ML IV ONE (13:19)
[2024-05-22 13:30] LABS: Glucose,Whole Blood 224 mg/dL (70-110)
[2024-05-22] MEDS: ONDANSETRON 4 MG/2 ML VIAL IVP ONE (13:39)
[2024-05-22 13:42] VITALS: BMI 34.3
[2024-05-22] MEDS: INSULIN ASPART (NovoLOG) 100 UNIT/ML VIAL SQ ONE (13:47)
[2024-05-22] MEDS ORDERED: KETAMINE HCL IN 0.9 % NACL 50 MG/5 ML SYRINGE ONE (14:15)
[2024-05-22] MEDS ORDERED: fentaNYL (PF) 50 MCG/ML 2 ML AMP ONE (14:15)
[2024-05-22] MEDS ORDERED: PROPOFOL 10 MG/ML 20 ML VIAL IV ONE (14:15)
[2024-05-22] MEDS ORDERED: MIDAZOLAM 2 MG/2 ML VIAL ONE (14:15)
[2024-05-22] MEDS ORDERED: HYDROmorphone (PF) 1 MG/ML ONE (14:15)
[2024-05-22] MEDS: LACTATED RINGERS 1,000 ML IV ONE (15:25)
[2024-05-22 15:53] LABS: Glucose,Whole Blood 183 mg/dL (70-110)
[2024-05-22] MEDS: LACTATED RINGERS 1,000 ML IV SCH (16:58)
[2024-05-22] MEDS: DEXAMETHASONE SOD PHOSPHATE 4 MG/ML 1 ML VIAL IV ONE (16:58)
[2024-05-22 17:11] LABS: Glucose,Whole Blood 154 mg/dL (70-110)
--- NOTE | 2024-05-22 19:33 | CT ---
EXAMINATION TYPE: CT lower extremity RT w con CT DLP: 2651.4 mGycm, Automated exposure control for dose reduction was used. DATE OF EXAM: 05/22/2024 6:52 PM COMPARISON: Plain film 05/15/2024 CLINICAL INDICATION: Male, 43 years old with history of leg infection; PHH, Rt leg infection. TECHNIQUE: Axial images were obtained of the CT lower extremity RT w con, Additional coronal and sagi ttal reformatted images and soft tissue and bone window were obtained for review. Contrast used:100ml mL of Isovue 370 with IV Contrast, (None if empty) Oral contrast used: (None if empty) FINDINGS: Fat stranding changes are seen along the anterior thigh. No evidence for organizing fluid c ollection. Open wounds in the medial and posterior aspect of the thigh with probable packing present. There remains fluid collections posterior to the knee there is a organizing fluid collection posteri or to the knee medially measuring up to 6.3 x 3.2 x 1.3 cm. There is an moderate to large right knee joint effusion. Severe atherosclerosis of the arterial vasculature with possible occlusion of the tib iofibular trunk artery series 4 image 254. No radiopaque foreign bodies visualized. No osseous erosion definitively visualized. No evidence of fracture. IMPRESSION: 1. Suspected postsurgical fasciotomy with packing. There is diffuse soft tissue swelling throughout the right extremity. There remains a small fluid collection just posterior to the knee. 2. No evidence of fracture. No evidence of osseous erosion to suggest osteomyelitis. 3. 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 Dense calcifi cations limiting evaluation. [facility], , 05/22/2024 7:31 PM
--- NOTE | 2024-05-22 19:34 | P.OP ---
Date of Procedure: 05/22/24 Description of Procedure: Preoperative diagnosis: Right lower extremity wound Postoperative diagnosis: Same, extensive right lower extremity purulent drainage and tracking Procedure: [Sharp excisional debridement right lower extremity Foot 8 x 6 x 1.5 cm to muscle and tendon Posterior calf 30 x 15 x 2.5 cm to muscle and tendon, 10 cm tunneling at 12:00, 8 cm tunneling at 3:00] Surgeon: Mansi Wright D.O. EBL: [50 cc] IV fluids: [See records] Urine output: [Not measured] Drains: [None] Complications: [None immediately apparent] Condition: [Stable to recovery] Operative indication and findings: [Patient is a 43-year-old male who previously had skin wounds initially diagnosed earlier in March at an outside hospital. At that time no debridement was done and he was sent for outpatient follow-up with wound care. He had been treating with wound care andAt some point subsequently began having worsening pain along with dizziness and weakness. He initially came to the ER on 05/15/2024 and was recommended to stay for evaluation but requested discharge to home. He continued on with wound care and presented to the ER with worsening findings on 05/20/2024. We were consulted on 05/21/2024 and he is brought to the operating room today 05/22/2024 for debridement of the wound. At the time of the procedure significant amount of purulent drainage and necrotic tissue with extensive tracking proximally and distally was identified.. Culture was taken. The patient was brought to the operative suite and placed in supine position. The right lower extremity was prepped and draped in usual sterile fashion from the mid thigh down. A timeout was performed, all parties were in agreement. Initially starting with visual exposure, it was obvious that the 2 initial wounds of the posterior calf were connected by a small skin bridge upon digitizing this there was return of purulent drainage therefore this area was open and the skin bridge was removed. Further digital exploration revealed significant purulent drainage through the gastroc and calf musculature. Digital exploration was performed proximally and distally. There was significant tunneling distally therefore this was opened to the level of the most distal point again returning significant and severe purulent drainage. The same was then performed in the proximal direction and due to the nature of this location a counterincision was made at the distal thigh and carried down to the level in continuity with the abscess pocket. The area was then digitized from this location and did not seem to expand further in the more proximal direction. Upon further probing the bone and joint capsule is palpable at the level of the abscess pocket itself. It is uncertain of the involvement of the knee joint. The areas were then copiously irrigated with significant amounts of saline followed by Dakin solution and wet to dry dressings were placed after hemostasis was achieved with electrocautery. Attention was then turned towards the wound on the dorsum of the foot. The eschar was removed. There did not appear to be any significant purulent drainage or tracking of this wound that did get debrided down to the level of muscle and subcutaneous tissues. At this point again this area was copiously irrigated and Dakin's wet to dry dressings were placed. He was transported to recovery in stable condition having tolerated the procedure well. ]
[2024-05-22 20:07] LABS: Glucose,Whole Blood 138 mg/dL (70-110)
--- NOTE | 2024-05-22 20:42 | P.PN ---
Subjective Progress Note Date: 05/22/24 HISTORY OF PRESENT ILLNESS: 43-year-old with active medical history of severely uncontrolled type 2 diabetes on insulin, hypertension, hyperlipidemia, atrial fibrillation, chronic neuropathy, history of ESBL with infected right big toe with osteomyelitis post amputation [address] [facility], history of gastrointestinal bleed which patient was transferred recently to [facility] for few days and found to have an osteomyelitis of the left big toe and that having amputation. Patient has been seen in the office for the last few weeks with infected right leg apparently was diagnosed at the time he was seen at [facility] but the medial aspect of the right lower part of the leg along with the posterior area of the foot, the blister and open area become as a stage II ulcerated large area start seen at the wound clinic and today with the wound is much worse and that being sent to the hospital requiring IV antibiotics. Culture was done and obtained patient was started on Zosyn and vancomycin will consult infectious disease along with vascular. Last A1c apparently has been running around 15 with a blood sugar running quite bit high at whole time patient used to see an senior mortgage loan processor who he has not seen lately he is quite noncompliant his medication and sometimes in diet which makes controlling his sugars much worse. I had long discussion with him and his plan at this point is to have his wound is stabilized by seen infectious disease along with wound care and vascular and try to do an intensive management for his diabetes while he is in house and as soon as he leaves he need to start seeing endocrinology on more regular basis because the help with healthcare educator and endocrinology will work together as a collaborative care to help to keep his symptoms under control. Patient has not been having any fever or chills was seen in the emergency department on 05/20/2024: Culture was done, his white blood cell was 11,300 with left shifted sed rate was 113 blood sugar was 264 with creatinine 0.7 and GFR above 90 lactic acid initially was 4.1 and C-reactive protein 20.4 alkaline phosphatase 239. Lactic acid after hydration IV antibiotic dropped down to 2.0 patient was stable enough to be hospitalized on IV antibiotics will be seen infe ctious disease and vascular as a mention might require debridement of the wound site and might benefit from wound VAC into area to help to facilitate his recovery also one of the finding with his lab is mild hyponatremia and hypochloremia at 128 and 91. 05/21/2024: Antibiotic was switched to cefepime and vancomycin after seen yesterday, patient was seen vascular today and prepare for debridement of the lower extremity recent osteomyelitis of the left great toe post amputation is healing well agreed to continue on IV antibiotic for now and debridement was planned for tomorrow. Infectious disease agree with the current plan specially with the wound care that to continue vancomycin along with cefepime till the final culture is back that will give him better coverage for gram-positive and gram-negative bacteria. 05/22/2024: He is going today for intervention with vascular for debridement on the site. Meanwhile no fever or chills and vitals are stable at this point microbiology already showing gram-negative isolate patient is on good coverage with cefepime and vancomycin will finalize antibiotic and surgery accordingly. Is pending lab from this morning for CBC and chemistry. Blood sugar bender is much better blood sugar is down to the low 100 seems to do well with current adjustment of insulin for now despite the A1c was very high on admission at 12.8 according to him and his was over 17 when he was at [facility] last month so maybe this is to some degree and improvement. Continue wound care after debridement whether patient is a require any wound VAC or not and whether require any institutional help or can go home with IV antibiotic is to be determined. REVIEW OF SYSTEMS: CONSTITUTIONAL: Well-developed no acute respiratory distress. EYES: No icterus sclerae, no conjunctivitis. EARS, NOSE, MOUTH, THROAT, and FACE: No sore throat, lymphadenopathy, carotid bruits or deformity. RESPIRATORY: No SOB cough or wheezes. CARDIOVASCULAR: No CP, Palpitation, PND, Orthopnea, or angina. GASTROINTESTINAL: No Abd pain, Nausea or vomiting, no Diarrhea or constipation, No GI Bleed, no distention or masses. GENITOURINARY: Negative for Hematuria or UTI, no kidney stones. INTEGUMENT/BREAST: Negative for any muscular injury with mild osteoarthritis.. Extremities: Left big toe amputation with infected right leg lateral side along with the dorsalis part of the foot as well with 2 large areas stage II to stage III. HEMATOLOGIC/LYMPHATIC: Negative for bleed or purpura. MUSCULOSKELTAL: Negative for Myalgia or arthralgia. NEURLOGICAL: No LOC, Sz or syncope, blurred vision dizziness or abnormality.. BEHAVIORAL/PSYCH: Negative. ENDOCRINE: Negative. PHYSICAL EXAMINATION: General Appearance: Alert, cooperative, no distress, appears stated age. Neck HEENT: Supple, no lymphadenopathy, no thyroid enlargement, no carotid bruits. Lungs: Clear to auscultation without crackles or wheezes no rhonchi, no deformity. Chest Wall: Chest wall normal expansion with deep inspiration no tenderness and no deformity was found on exam, no costochondral pain or discomfort. Heart: Regular rate and rhythm, S1, S2 normal, no murmur, rub or gallop. Back: Symmetric, no curvature, ROM normal, no CVA tenderness. Abdomen: Soft, non-tender, bowel sounds active all four quadrants, no masses, no organomegaly. Extremities: Left foot has left big toe amputation, right foot has lateral aspect of large area of slough with ulcerated area stage III major 25 time 12 cm in size and there is another area on the dorsalis part of the foot major 10 time 5 cm again with depth of stage II almost with slight necrotic tissue on the bottom part of the leg. Pulses: 2+ and symmetric. Skin: Skin color, texture, tugor normal, no rashes or lesions. Neurologic: Alert oriented x3 cranial nerves II through XII intact, no motor de ficit, no abnormal balance or gait. ASSESSMENT AND PLAN: _Severe nonhealing ulcerated infected right foot and leg with 2 large different location lower part of the leg stage III and dorsalis part of the foot with stage II, culture was done and remain on antibiotic with vancomycin and cefepime going for debridement today and still waiting for the final culture. _Recent osteomyelitis of the left big toe post amputation still recovering from it so far. _Diabetic foot: With nonhealing ulcerated area become slightly bit worse especially with his blood sugar being quite bit high, continue aggressive management, gram-negative bacilli on culture preliminary no identity yet on current bacteria but continue current antibiotic till the final is done _Type 2 diabetes not controlled with A1c major from today at 12.8, remain on 2 different type of insulin which is Levemir seems doing 15 units twice a day also still doing NovoLog 15 units AC meals plus sliding scales coverage. The longer- term plan is probably to switch the short acting into 2. Increase in longer ac ting insulin and lower the short acting he with between 5.8 units AC meals only began as a mention adding SGLT2 product with Tradjenta will be a good idea. _A-fib with RVR: Remain on Eliquis 5 mg twice a day still on Coreg 25 mg twice daily as well. Hold Eliquis till after debridement is done. _Atherosclerotic heart disease: Still seen cardiology remain on medical management with Eliquis, Lipitor, aspirin, Coreg and nitro. _Severe neuropathy: Currently on pain medication only not on any gabapentin or pregabalin but something should consider definitely. _Hyponatremia: Mild most like secondary to severity of infection. _Gastroparesis and severe GERD: Remain on Carafate along with Protonix. _Hypertension: Will continue Coreg 25 mg twice a day, amlodipine 5 mg daily and still on Lasix 40 mg a day. _GI prophylaxis: Continue pantoprazole. Discussion: Going for debridement today, finalize the culture, remain on current antibiotics and more adjustment on diabetic management. Objective - Vital Signs Vital signs: Vital Signs Temp 98.9 F 05/22/24 02:11 Pulse 77 05/22/24 02:11 Resp 17 05/22/24 02:11 BP 132/81 05/22/24 02:11 Pulse Ox 97 05/22/24 02:11 FiO2 Intake & Output 05/21/24 05/21/24 05/22/24 06:59 18:59 06:59 Intake Total 118 Output Total 600 600 475 Balance -600 -482 -475 Weight 124.738 kg Intake: Oral 118 Output: Urine 600 600 475 Other: Voiding Method Urinal Urinal - Labs CBC & Chem 7: 05/21/24 05:21 05/21/24 05:21 Labs: Abnormal Lab Results - Last 24 Hours (Table) 05/21/24 05/21/24 05/21/24 Range/Units 05:21 05:21 05:21 RBC 3.95 L (4.30-5.90) m/uL Hgb 10.6 L D (13.0-17.5) gm/dL Hct 32.6 L (39.0-53.0) % Sodium 126 L (137-145) mmol/L Creatinine 0.58 L (0.66-1.25) mg/dL Glucose 277 H (74-99) mg/dL POC Glucose (mg/dL) (70-110) mg/dL Hemoglobin A1c 12.8 H (<=6.0) % Calcium 7.8 L (8.4-10.2) mg/dL Alkaline Phosphatase 315 H (38-126) U/L Total Protein 5.7 L (6.3-8.2) g/dL Albumin 2.5 L (3.5-5.0) g/dL 05/21/24 05/21/24 05/21/24 Range/Units 06:07 12:12 17:20 RBC (4.30-5.90) m/uL Hgb (13.0-17.5) gm/dL Hct (39.0-53.0) % Sodium (137-145) mmol/L Creatinine (0.66-1.25) mg/dL Glucose (74-99) mg/dL POC Glucose (mg/dL) 328 H 310 H 150 H (70-110) mg/dL Hemoglobin A1c (<=6.0) % Calcium (8.4-10.2) mg/dL Alkaline Phosphatase (38-126) U/L Total Protein (6.3-8.2) g/dL Albumin (3.5-5.0) g/dL 05/21/24 Range/Units 20:12 RBC (4.30-5.90) m/uL Hgb (13.0-17.5) gm/dL Hct (39.0-53.0) % Sodium (137-145) mmol/L Creatinine (0.66-1.25) mg/dL Glucose (74-99) mg/dL POC Glucose (mg/dL) 136 H (70-110) mg/dL Hemoglobin A1c (<=6.0) % Calcium (8.4-10.2) mg/dL Alkaline Phosphatase (38-126) U/L Total Protein (6.3-8.2) g/dL Albumin (3.5-5.0) g/dL Microbiology - Last 24 Hours (Table) 05/20/24 22:00 Gram Stain - Preliminary Leg - Right Wound Culture - Preliminary Gram Neg Bacilli 05/20/24 11:07 Blood Culture - Preliminary Blood
[2024-05-22] MEDS: ERTAPENEM 1 GM in SODIUM CHLORIDE 0.9% 50 ML IVPB SCH (22:37)
[2024-05-23] MEDS: VANCOMYCIN 2,000 MG in SODIUM CHLORIDE 0.9% 500 ML 500 ML IVPB SCH (01:09)
[2024-05-23 05:58] LABS: Glucose,Whole Blood 157 mg/dL (70-110)
[2024-05-23 07:27] LABS: African American GFR (CKD) >90 (>60 ml/min/1.73 sqM); Anion Gap 5 mmol/L; Blood Urea Nitrogen 9 mg/dL (9-20); Calcium 7.6 mg/dL (8.4-10.2); Carbon Dioxide 24 mmol/L (22-30); Chloride 100 mmol/L (98-107); Glucose 124 mg/dL (74-99); Non-African American GFR(CKD) >90 (>60 ml/min/1.73 sqM); Potassium 4.2 mmol/L (3.5-5.1); Sodium 129 mmol/L (137-145)
--- NOTE | 2024-05-23 09:17 | P.PN ---
Subjective Progress Note Date: 05/22/24 Principal diagnosis: Reason for follow-up is right lower extremity and foot wound Patient is a 43-year-old male with a past medical history significant for diabetes mellitus hypertension hyperlipidemia coronary artery disease atrial fibrillation apparently has been dealing with the right lower extremity wound both to the right lower leg and foot area that he has for couple of weeks being admitted to hospital with worsening wound and concern for infection. On today's evaluation that is 05/22/2024, Patient is afebrile this morning patient denies having any chest pain shortness of breath or cough, the patient is currently on room air, patient denies any abdominal pain no diarrhea no nausea no vomiting and no worsening pain to the right lower extremity. Patient white count is 11.46 creatinine 0.48 local culture currently growing gram-negative Objective - Vital Signs Vital signs: Vital Signs Temp 99.4 F 05/22/24 07:00 Pulse 80 05/22/24 07:00 Resp 17 05/22/24 07:00 BP 137/87 05/22/24 07:00 Pulse Ox 94 L 05/22/24 07:00 FiO2 Intake & Output 05/21/24 05/22/24 05/22/24 18:59 06:59 18:59 Intake Total 118 118 Output Total 600 1175 375 Balance -145 -1605 -609 Intake: Oral 118 118 Output: Urine 600 1175 375 Other: Voiding Method Urinal - Exam Middle-age male lying in bed in no distress No tachypnea or accessory muscle respiration use Unlabored breathing. Patient right leg wound is currently dressed - Labs CBC & Chem 7: 05/22/24 06:51 05/23/24 06:46 Labs: Abnormal Lab Results - Last 24 Hours (Table) 05/21/24 05/21/24 05/21/24 Range/Units 12:12 17:20 20:12 WBC (4.50-10.00) X 10*3/uL RBC (4.40-5.60) X 10*6/uL Hgb (13.0-17.0) g/dL Hct (39.6-50.0) % MCH (27.0-32.0) pg MCHC (32.0-37.0) g/dL RDW (11.5-14.5) % Sodium (137-145) mmol/L Creatinine (0.66-1.25) mg/dL Glucose (74-99) mg/dL POC Glucose (mg/dL) 310 H 150 H 136 H (70-110) mg/dL Calcium (8.4-10.2) mg/dL Alkaline Phosphatase (38-126) U/L Total Protein (6.3-8.2) g/dL Albumin (3.5-5.0) g/dL 05/22/24 05/22/24 05/22/24 Range/Units 05:51 06:51 06:51 WBC 11.46 H (4.50-10.00) X 10*3/uL RBC 3.81 L (4.40-5.60) X 10*6/uL Hgb 9.9 L (13.0-17.0) g/dL Hct 31.0 L (39.6-50.0) % MCH 26.0 L (27.0-32.0) pg MCHC 31.9 L (32.0-37.0) g/dL RDW 15.0 H (11.5-14.5) % Sodium 131 L (137-145) mmol/L Creatinine 0.48 L (0.66-1.25) mg/dL Glucose 207 H (74-99) mg/dL POC Glucose (mg/dL) 198 H (70-110) mg/dL Calcium 8.1 L (8.4-10.2) mg/dL Alkaline Phosphatase 297 H (38-126) U/L Total Protein 5.7 L (6.3-8.2) g/dL Albumin 2.4 L (3.5-5.0) g/dL Microbiology - Last 24 Hours (Table) 05/20/24 22:00 Gram Stain - Preliminary Leg - Right Wound Culture - Preliminary Gram Neg Bacilli 05/20/24 11:07 Blood Culture - Preliminary Blood Assessment and Plan (1) Leg wound, right Current Visit: Yes Status: Acute Code(s): S81.801A - UNSPECIFIED OPEN WOUND, RIGHT LOWER LEG, INITIAL ENCOUNTER SNOMED Code(s): 51961928069598954 (2) Diabetic foot infection Current Visit: Yes Status: Acute Code(s): E11.628 - TYPE 2 DIABETES MELLITUS WITH OTHER SKIN COMPLICATIONS; L08.9 - LOCAL INFECTION OF THE SKIN AND SUBCUTANEOUS TISSUE, UNSP SNOMED Code(s): 219001878 (3) Diabetic foot ulcer Current Visit: No Status: Acute Code(s): E11.621 - TYPE 2 DIABETES MELLITUS WITH FOOT ULCER; L97.509 - NON-PRESSURE CHRONIC ULCER OTH PRT UNSP FOOT W UNSP SEVERITY SNOMED Code(s): 914497819 Plan: 1patient with a chronic nonhealing wound to the right lower extremity including both the leg and the foot area that has been there for couple of weeks with recent admission at [facility] and has been treated with IV device therapy subsequently was discharged on oral antibiotic that apparently was switched to doxycycline by his primary care physician now presenting with worsening wound concerning for wound infection and cellulitis will need to cover for both gram- positive as well as gram-negative pathogen. 2patient has been evaluated by vascular surgery and plan is for debridement of the wound and deep culture scheduled for this afternoon 3patient to continue with vancomycin pharmacy to dose and cefepime while wait ing for the culture to finalize and confucianist antibiotic on the basis of this culture and operative finding Dictation was produced using [employer] dictation software. please excuse any grammatical, word or spelling errors. Time with Patient: Less than 30
[2024-05-23 10:34] LABS: Basophils # (A) 0.07 X 10*3/uL (0.00-0.10); Basophils % (A) 0.6 %; Eosinophils # (A) 0.24 X 10*3/uL (0.04-0.35); HCT 26.3 % (39.6-50.0); HGB 8.4 g/dL (13.0-17.0); Lymphocytes # (A) 1.99 X 10*3/uL (0.90-5.00); Lymphocytes % (A) 16.9 %; MCH 26.2 pg (27.0-32.0); MCHC 31.9 g/dL (32.0-37.0); MCV 81.9 FL (80.0-97.0); Mean Platelet Volume 10.5 FL (9.5-12.2); Monocytes # (A) 1.36 X 10*3/uL (0.20-1.00); Monocytes % (A) 11.6 %; NRBC Per 100 WBC 0 X 10*3/uL (0.00-0.01); Neutrophils # (A) 8.01 X 10*3/uL (1.80-7.70); Neutrophils % (A) 68.2 %; Platelet Count 345 X 10*3/uL (140-440); RBC 3.21 X 10*6/uL (4.40-5.60); RDW 15.1 % (11.5-14.5); WBC 11.75 X 10*3/uL (4.50-10.00)
[2024-05-23 10:48] LABS: Glucose,Whole Blood 143 mg/dL (70-110)
[2024-05-23] MEDS: IV FLUID CONTINUATION 1,000 ML IV ONE (10:53)
[2024-05-23] MEDS: MIDAZOLAM 2 MG/2 ML VIAL IV ONE (10:56)
[2024-05-23] MEDS ORDERED: ePHEDrine 50 MG/ML 1 ML VIAL ONE (11:56)
[2024-05-23] MEDS ORDERED: PROPOFOL 10 MG/ML 20 ML VIAL IV ONE (11:56)
[2024-05-23] MEDS ORDERED: PHENYLEPHRINE-0.9% NACL SYG 1,000 MCG/10 ML SYRINGE ONE (11:56)
[2024-05-23] MEDS ORDERED: fentaNYL (PF) 50 MCG/ML 2 ML AMP ONE (11:56)
[2024-05-23] MEDS ORDERED: SUCCINYLCHOLINE CHLORIDE 200 MG/10 ML VIAL IV ONE (11:56)
[2024-05-23] MEDS ORDERED: LIDOCAINE 1% INJ 10MG/ML (20 ML MDV) ONE (11:56)
[2024-05-23] MEDS ORDERED: MIDAZOLAM 2 MG/2 ML VIAL ONE (11:56)
[2024-05-23] MEDS: SODIUM CHLORIDE 0.9% 1,000 ML IV ONE (11:58)
[2024-05-23] MEDS: ceFAZolin 2 GM in SODIUM CHLORIDE 0.9% 500 ML 500 ML IRRIGATION ONE (12:26)
[2024-05-23 13:38] LABS: Glucose,Whole Blood 167 mg/dL (70-110)
[2024-05-23] MEDS: HYDROcodone/APAP 5-325MG 1 EACH TAB PO PRN (14:29)
--- NOTE | 2024-05-23 15:22 | P.OP ---
Date of Procedure: 05/23/24 Description of Procedure: Preoperative diagnosis: Right lower extremity wound Postoperative diagnosis: Same Procedure: Debridement and washout of right lower extremity wound, sharp excisional debridement right posterior calf wound 32 x 15 x 3.5 cm to muscle Right thigh wound 7 x 3 x 3 cm to muscle Surgeon: Mansi Wright D.O. EBL: 15cc IV fluids: See records Urine output: Not measured Drains: None Complications: None immediately apparent Condition: Stable to recovery Operative indication and findings: Patient is a 43-year-old male with previously debrided right lower extremity wound and washout. He represents today for further evaluation washout versus possible above-knee potation. Risks and fern efits were discussed including but not limited to bleeding, infection injury to the surrounding tissues Procedure in detail: Patient was brought the op suite and placed in supine position. The entire right lower extremity was prepped and draped in usual sterile fashion. A preprocedural timeout performed, all parties were in agreement. The previous areas were digitized without any return of purulent drainage, there was a small pocket on the anterior rothman which was opened without any further purulence. The tissue looks much healthier than previous. The area was debrided with curette and scalpel. Attention was then turned towards the wound at the thigh. It was enlarged to allow for better exploration of the more proximal portions. It did not appear to track or tunnel any further than previously identified. There is no return of purulent drainage. There was 2 areas of tunneling between the thigh and posterior calf wounds posterior to the knee, 1 superficial to the fascia and 1 deep to the fascia. They were both copiously irrigated sufficiently and dressings with Dakin's soaked Kerlix were placed. On the dorsum of the foot, the wound itself appeared healthy with adequate appearing tissue therefore no aggressive debridement was performed at this spot. Dressings were placed. The patient was transported recovery in stable condition having tolerated the procedure well.
[2024-05-23 17:34] LABS: Glucose,Whole Blood 233 mg/dL (70-110)
[2024-05-23 20:01] LABS: Glucose,Whole Blood 174 mg/dL (70-110)
--- NOTE | 2024-05-23 21:06 | P.PN ---
Subjective Progress Note Date: 05/23/24 HISTORY OF PRESENT ILLNESS: 43-year-old with active medical history of severely uncontrolled type 2 diabetes on insulin, hypertension, hyperlipidemia, atrial fibrillation, chronic neuropathy, history of ESBL with infected right big toe with osteomyelitis post amputation 3 weeks ago in [facility], history of gastrointestinal bleed which patient was transferred recently to [facility] for few days and found to have an osteomyelitis of the left big toe and that having amputation. Patient has been seen in the office for the last few weeks with infected right leg apparently was diagnosed at the time he was seen at [facility] but the medial aspect of the right lower part of the leg along with the posterior area of the foot, the blister and open area become as a stage II ulcerated large area start seen at the wound clinic and today with the wound is much worse and that being sent to the hospital requiring IV antibiotics. Culture was done and obtained patient was started on Zosyn and vancomycin will consult infectious disease along with vascular. 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 I had long discussion with him and his plan at this point is to have his wound is stabilized by seen infectious disease along with wound care and vascular and try to do an intensive management for his diabetes while he is in house and as soon as he leaves he need to start seeing endocrinology on more regular basis because the help with licensed vocational nurse and endocrinology will work together as a collaborative care to help to keep his symptoms under control. Patient has not been having any fever or chills was seen in the emergency department on 05/20/2024: Culture was done, his white blood cell was 11,300 with left shifted sed rate was 113 blood sugar was 264 with creatinine 0.7 and GFR above 90 lactic acid initially was 4.1 and C-reactive protein 20.4 alkaline phosphatase 239. Lactic acid after hydration IV antibiotic dropped down to 2.0 patient was stable enough to be hospitalized on IV antibiotics will be seen infe ctious disease and vascular as a mention might require debridement of the wound site and might benefit from wound VAC into area to help to facilitate his recovery also one of the finding with his lab is mild hyponatremia and hypochloremia at 128 and 91. 05/21/2024: Antibiotic was switched to cefepime and vancomycin after seen yesterday, patient was seen vascular today and prepare for debridement of the lower extremity recent osteomyelitis of the left great toe post amputation is healing well agreed to continue on IV antibiotic for now and debridement was planned for tomorrow. Infectious disease agree with the current plan specially with the wound care that to continue vancomycin along with cefepime till the final culture is back that will give him better coverage for gram-positive and gram-negative bacteria. 05/22/2024: He is going today for intervention with vascular for debridement on the site. Meanwhile no fever or chills and vitals are stable at this point microbiology already showing gram-negative isolate patient is on good coverage with cefepime and vancomycin will finalize antibiotic and surgery accordingly. Is pending lab from this morning for CBC and chemistry. Blood sugar bender is much better blood sugar is down to the low 100 seems to do well with current adjustment of insulin for now despite the A1c was very high on admission at 12.8 according to him and his was over 17 when he was at [facility] last month so maybe this is to some degree and improvement. Continue wound care after debridement whether patient is a require any wound VAC or not and whether require any institutional help or can go home with IV antibiotic is to be determined. 05/19/2024: Patient be going back to the OR today for an intervention either wash and debridement of the wound in the right leg or even he is prepped for possible above-knee amputation which patient and his significant other seems to be agreeable to it, the infection and the finding on the CAT scan was bad enough that required to help expected. Culture came back positive for E. coli which patient currently still on IV antibiotics supported by infectious disease on ertapenem 1 g daily along with vancomycin 2000 mg every 24 hours. Not clear whether it is beneficial to add metronidazole or not but I will leave it up to infectious disease. Another hand his blood sugar has been doing much better and since adjustment of his medication with adding Tradjenta 5 mg a day and having to do the NovoLog 7 units AC meals plus Levemir 15 unit twice daily has done very well. Vitals and blood pressure looking good his temperature is running 98.9. His pain is under control as well. REVIEW OF SYSTEMS: CONSTITUTIONAL: Well-developed no acute respiratory distress. EYES: No icterus sclerae, no conjunctivitis. EARS, NOSE, MOUTH, THROAT, and FACE: No sore throat, lymphadenopathy, carotid bruits or deformity. RESPIRATORY: No SOB cough or wheezes. CARDIOVASCULAR: No CP, Palpitation, PND, Orthopnea, or angina. GASTROINTESTINAL: No Abd pain, Nausea or vomiting, no Diarrhea or constipation, No GI Bleed, no distention or masses. GENITOURINARY: Negative for Hematuria or UTI, no kidney stones. INTEGUMENT/BREAST: Negative for any muscular injury with mild osteoarthritis.. Extremities: Left big toe amputation with infected right leg lateral side along with the dorsalis part of the foot as well with 2 large areas stage II to stage III. HEMATOLOGIC/LYMPHATIC: Negative for bleed or purpura. MUSCULOSKELTAL: Negative for Myalgia or arthralgia. NEURLOGICAL: No LOC, Sz or syncope, blurred vision dizziness or abnormality.. BEHAVIORAL/PSYCH: Negative. ENDOCRINE: Negative. PHYSICAL EXAMINATION: General Appearance: Alert, cooperative, no distress, appears stated age. Neck HEENT: Supple, no lymphadenopathy, no thyroid enlargement, no carotid bruits. Lungs: Clear to auscultation without crackles or wheezes no rhonchi, no deformity. Chest Wall: Chest wall normal expansion with deep inspiration no tenderness and no deformity was found on exam, no costochondral pain or discomfort. Heart: Regular rate and rhythm, S1, S2 normal, no murmur, rub or gallop. Back: Symmetric, no curvature, ROM normal, no CVA tenderness. Abdomen: Soft, non-tender, bowel sounds active all four quadrants, no masses, no organomegaly. Extremities: Left foot has left big toe amputation, right foot has lateral aspect of large area of slough with ulcerated area stage III major 25 time 12 cm in size and there is another area on the dorsalis part of the foot major 10 time 5 cm again with depth of stage II almost with slight necrotic tissue on the bottom part of the leg. Pulses: 2+ and symmetric. Skin: Skin color, texture, tugor normal, no rashes or lesions. Neurologic: Alert oriented x3 cranial nerves II through XII intact, no motor deficit, no abnormal balance or gait. ASSESSMENT AND PLAN: _Severe nonhealing ulcerated infected right foot and leg with 2 large different location lower part of the leg stage III and dorsalis part of the foot with stage II, culture was done and remain on antibiotic with vancomycin and ertapenem which seem to respond well to it. Had long discussion with Dr. Wright vascular about the plan she is planning to take him back to the OR today for more debridement and wash of the wound but she is wanting him the area is very bad might require above-knee amputation which apparently patient has consented to it if that is the best option plan and the safest. _Recent osteomyelitis of the left big toe post amputation still recovering from it so far. _Diabetic foot: With nonhealing ulcerated area become slightly bit worse especially with his blood sugar being quite bit high, continue aggressive management, culture positive for E. coli he remain on ertapenem and vancomycin. Going for more debridement and watch today. _Type 2 diabetes not controlled with A1c major from today at 12.8, medication were adjusted he is on Levemir 15 units twice a day and NovoLog 7 units AC meals plus sliding scales along with Tradjenta which seem to control her blood sugar much better. _A-fib with RVR: Remain on Eliquis 5 mg twice a day still on Coreg 25 mg twice daily as well. Hold Eliquis till after debridement is done. Hopefully will resume Eliquis 48 hours after the surgery if there is no further surgery required. _Atherosclerotic heart disease: Still seen cardiology remain on medical management with Eliquis, Lipitor, aspirin, Coreg and nitro. _Severe neuropathy: Currently on pain medication only not on any gabapentin or pregabalin but something should consider definitely. _Hyponatremia: Mild most like secondary to severity of infection. _Gastroparesis and severe GERD: Remain on Carafate along with Protonix. _Hypertension: Will continue Coreg 25 mg twice a day, amlodipine 5 mg daily and still on Lasix 40 mg a day. _GI prophylaxis: Continue pantoprazole. Discussion: Patient is going for more debridement and possible above-knee amputation today it is all depend on the findings during surgery which patient has consent for the amputation as well. I was in early in the morning patient and his was giving all the time the need to ask question and provide them the answer including finding on lab, result, blood sugar and such also they are aware and he talked in length with Dr. Wright yesterday about the plan for possible amputation which patient is appropriate for it at this point. Also patient asked to extend his sick leave from work which paper was provided to his company for an extra month till we come with final conclusion and plan if he require amputation is a require probably more time off with all dependent. Objective - Vital Signs Vital signs: Vital Signs Temp 99.5 F 05/23/24 01:52 Pulse 80 05/23/24 01:52 Resp 16 05/23/24 01:52 BP 113/72 05/23/24 01:52 Pulse Ox 94 L 05/23/24 01:52 FiO2 Intake & Output 05/22/24 05/22/24 05/23/24 06:59 18:59 06:59 Intake Total 586 Output Total 1175 675 800 Balance -1175 -89 -800 Weight 124.738 kg Intake: IV 350 Oral 236 Output: Urine 1175 575 800 Estimated Blood Loss 100 - Labs CBC & Chem 7: 05/23/24 06:46 05/23/24 06:46 Labs: Abnormal Lab Results - Last 24 Hours (Table) 05/22/24 05/22/24 05/22/24 Range/Units 06:51 06:51 12:15 WBC 11.46 H (4.50-10.00) X 10*3/uL RBC 3.81 L (4.40-5.60) X 10*6/uL Hgb 9.9 L (13.0-17.0) g/dL Hct 31.0 L (39.6-50.0) % MCH 26.0 L (27.0-32.0) pg MCHC 31.9 L (32.0-37.0) g/dL RDW 15.0 H (11.5-14.5) % Sodium 131 L (137-145) mmol/L Creatinine 0.48 L (0.66-1.25) mg/dL Glucose 207 H (74-99) mg/dL POC Glucose (mg/dL) 241 H (70-110) mg/dL Calcium 8.1 L (8.4-10.2) mg/dL Alkaline Phosphatase 297 H (38-126) U/L Total Protein 5.7 L (6.3-8.2) g/dL Albumin 2.4 L (3.5-5.0) g/dL 05/22/24 05/22/24 05/22/24 Range/Units 13:28 15:50 17:09 WBC (4.50-10.00) X 10*3/uL RBC (4.40-5.60) X 10*6/uL Hgb (13.0-17.0) g/dL Hct (39.6-50.0) % MCH (27.0-32.0) pg MCHC (32.0-37.0) g/dL RDW (11.5-14.5) % Sodium (137-145) mmol/L Creatinine (0.66-1.25) mg/dL Glucose (74-99) mg/dL POC Glucose (mg/dL) 224 H 183 H 154 H (70-110) mg/dL Calcium (8.4-10.2) mg/dL Alkaline Phosphatase (38-126) U/L Total Protein (6.3-8.2) g/dL Albumin (3.5-5.0) g/dL 05/22/24 05/23/24 Range/Units 20:05 05:56 WBC (4.50-10.00) X 10*3/uL RBC (4.40-5.60) X 10*6/uL Hgb (13.0-17.0) g/dL Hct (39.6-50.0) % MCH (27.0-32.0) pg MCHC (32.0-37.0) g/dL RDW (11.5-14.5) % Sodium (137-145) mmol/L Creatinine (0.66-1.25) mg/dL Glucose (74-99) mg/dL POC Glucose (mg/dL) 138 H 157 H (70-110) mg/dL Calcium (8.4-10.2) mg/dL Alkaline Phosphatase (38-126) U/L Total Protein (6.3-8.2) g/dL Albumin (3.5-5.0) g/dL Microbiology - Last 24 Hours (Table) 05/20/24 22:00 Gram Stain - Preliminary Leg - Right Wound Culture - Preliminary Escherichia coli 05/20/24 11:07 Blood Culture - Preliminary Blood
--- NOTE | 2024-05-23 23:37 | P.PN ---
Subjective Progress Note Date: 05/23/24 Principal diagnosis: Reason for follow-up is right lower extremity and foot wound Patient is a 43-year-old male with a past medical history significant for diabetes mellitus hypertension hyperlipidemia coronary artery disease atrial fibrillation apparently has been dealing with the right lower extremity wound both to the right lower leg and foot area that he has for couple of weeks being admitted to hospital with worsening wound and concern for infection.Patient was taken to the OR last evening and this patient was status post sharp excisional debridement of the right leg concerning for necrotizing fasciitis and drainage of the abscess procedure completed on 05/22/2024 with repeat debridement this afternoon. On today's evaluation that is 05/23/2024,the patient denies any fever or any chills, patient is breathing comfortably on room air, the patient denies chest pain shortness of breath and no significant cough, patient denies abdominal pain, no nausea vomiting or diarrhea. Patient denies worsening pain to the right lower extremity. Patient white count is 11.75, creatinine 0.50 initial culture with E. coli however these are superficial culture or cultures are pending Objective - Vital Signs Vital signs: Vital Signs Temp 97.0 F L 05/23/24 13:02 Pulse 66 05/23/24 13:31 Resp 16 05/23/24 13:31 BP 116/75 05/23/24 13:31 Pulse Ox 98 05/23/24 13:31 FiO2 Intake & Output 05/22/24 05/23/24 05/23/24 18:59 06:59 18:59 Intake Total 586 1001 Output Total 675 800 20 Balance -89 -800 981 Weight 124.738 kg Intake: IV 350 1001 Oral 236 0 Output: Urine 575 800 Estimated Blood Loss 100 20 - Exam GENERAL DESCRIPTION: Middle-age male lying in bed in no distress RESPIRATORY SYSTEM: Unlabored breathing , decreased breath sounds at bases HEART: S1 S2 regular rate and rhythm , ABDOMEN: Soft , no tenderness EXTREMITIES: Right leg is currently dressed in OR dressing - Labs CBC & Chem 7: 05/23/24 06:46 05/23/24 06:46 Labs: Abnormal Lab Results - Last 24 Hours (Table) 05/22/24 05/22/24 05/22/24 Range/Units 15:50 17:09 20:05 WBC (4.50-10.00) X 10*3/uL RBC (4.40-5.60) X 10*6/uL Hgb (13.0-17.0) g/dL Hct (39.6-50.0) % MCH (27.0-32.0) pg MCHC (32.0-37.0) g/dL RDW (11.5-14.5) % Immature Gran # (0.00-0.04) X 10*3/uL Neutrophils # (1.80-7.70) X 10*3/uL Monocytes # (0.20-1.00) X 10*3/uL Sodium (137-145) mmol/L Creatinine (0.66-1.25) mg/dL Glucose (74-99) mg/dL POC Glucose (mg/dL) 183 H 154 H 138 H (70-110) mg/dL Calcium (8.4-10.2) mg/dL 05/23/24 05/23/24 05/23/24 Range/Units 05:56 06:46 06:46 WBC 11.75 H (4.50-10.00) X 10*3/uL RBC 3.21 L (4.40-5.60) X 10*6/uL Hgb 8.4 L (13.0-17.0) g/dL Hct 26.3 L (39.6-50.0) % MCH 26.2 L (27.0-32.0) pg MCHC 31.9 L (32.0-37.0) g/dL RDW 15.1 H (11.5-14.5) % Immature Gran # 0.08 H (0.00-0.04) X 10*3/uL Neutrophils # 8.01 H (1.80-7.70) X 10*3/uL Monocytes # 1.36 H (0.20-1.00) X 10*3/uL Sodium 129 L (137-145) mmol/L Creatinine 0.50 L (0.66-1.25) mg/dL Glucose 124 H (74-99) mg/dL POC Glucose (mg/dL) 157 H (70-110) mg/dL Calcium 7.6 L (8.4-10.2) mg/dL 05/23/24 Range/Units 10:43 WBC (4.50-10.00) X 10*3/uL RBC (4.40-5.60) X 10*6/uL Hgb (13.0-17.0) g/dL Hct (39.6-50.0) % MCH (27.0-32.0) pg MCHC (32.0-37.0) g/dL RDW (11.5-14.5) % Immature Gran # (0.00-0.04) X 10*3/uL Neutrophils # (1.80-7.70) X 10*3/uL Monocytes # (0.20-1.00) X 10*3/uL Sodium (137-145) mmol/L Creatinine (0.66-1.25) mg/dL Glucose (74-99) mg/dL POC Glucose (mg/dL) 143 H (70-110) mg/dL Calcium (8.4-10.2) mg/dL Microbiology - Last 24 Hours (Table) 05/22/24 15:20 Gram Stain - Preliminary Leg - Right 05/20/24 22:00 Gram Stain - Preliminary Leg - Right Wound Culture - Preliminary Escherichia coli 05/20/24 11:07 Blood Culture - Preliminary Blood Assessment and Plan (1) Leg wound, right Current Visit: Yes Status: Acute Code(s): S81.801A - UNSPECIFIED OPEN WOUND, RIGHT LOWER LEG, INITIAL ENCOUNTER SNOMED Code(s): 09975728655473701 (2) Diabetic foot infection Current Visit: Yes Status: Acute Code(s): E11.628 - TYPE 2 DIABETES MELLITUS WITH OTHER SKIN COMPLICATIONS; L08.9 - LOCAL INFECTION OF THE SKIN AND SUBCUTANEOUS TISSUE, UNSP SNOMED Code(s): 472191062 (3) Diabetic foot ulcer Current Visit: No Status: Acute Code(s): E11.621 - TYPE 2 DIABETES MELLITUS WITH FOOT ULCER; L97.509 - NON-PRESSURE CHRONIC ULCER OTH PRT UNSP FOOT W UNSP SEVERITY SNOMED Code(s): 997690361 Plan: 1patient with a chronic nonhealing wound to the right lower extremity including both the leg and the foot area that has been there for couple of weeks with recent admission at [facility] and has been treated with IV device therapy subsequently was discharged on oral antibiotic that apparently was switched to doxycycline by his primary care physician now presenting with worsening wound concerning for wound infection and cellulitis will need to cover for both gram- positive as well as gram-negative pathogen. 2patient did have extensive surgery debridement of the right lower extremity concerning for necrotizing fasciitis Ortho has been consulted with concern for possible involvement of the joint 3patient superficial culture grew ESBL E. coli and Aide 4 cultures are currently pending antibiotic has been adjusted to Invanz Dictation was produced using [employer] dictation software. please excuse any grammatical, word or spelling errors. Time with Patient: Less than 30
[2024-05-24 01:38] LABS: Glucose,Whole Blood 103 mg/dL (70-110)
[2024-05-24 05:49] LABS: Glucose,Whole Blood 141 mg/dL (70-110)
[2024-05-24 06:07] LABS: African American GFR (CKD) >90 (>60 ml/min/1.73 sqM); Non-African American GFR(CKD) >90 (>60 ml/min/1.73 sqM)
--- NOTE | 2024-05-24 10:45 | P.PN ---
Subjective Progress Note Date: 05/24/24 Principal diagnosis: Right lower extremity infection Patient is seen and examined today as a follow-up. Yesterday he underwent right lower extremity wound washout and further excisional debridement. Patient states pain is well-controlled. He has a Naun wrap with serosanguineous drainage. Also states that he would like to go to extended-care facility for wound care treatment and antibiotics. He did have a fever last night of 100.1. Currently on IV antibiotics. Initial wound cultures showing E. coli, Aide albicans. Deep tissue cultures currently pending. Objective - Vital Signs Vital signs: Vital Signs Temp 98.4 F 05/24/24 07:33 Pulse 71 05/24/24 07:33 Resp 18 05/24/24 01:47 BP 100/60 05/24/24 07:33 Pulse Ox 94 L 05/24/24 07:33 FiO2 Intake & Output 05/23/24 05/24/24 05/24/24 18:59 06:59 18:59 Intake Total 1001 Output Total 20 1100 Balance 981 -1100 Intake: IV 1001 Oral 0 Output: Urine 1100 Estimated Blood Loss 20 Other: Voiding Method Urinal # Bowel Movements 1 - Exam General appearance: The patient is alert, oriented, appears in no acute distress. HET: Head is normocephalic and atraumatic. Pupils are equal and reactive. Neck: Supple. Abdomen: Soft, nondistended. Extremities: Right lower extremity with Naun wrap up to thigh, serosanguineous drainage over cath. Neurological: No focal deficits. Strength and sensation are grossly intact. - Labs CBC & Chem 7: 05/23/24 06:46 05/24/24 04:53 Labs: Abnormal Lab Results - Last 24 Hours (Table) 05/23/24 05/23/24 05/23/24 Range/Units 06:46 10:43 13:36 WBC 11.75 H (4.50-10.00) X 10*3/uL RBC 3.21 L (4.40-5.60) X 10*6/uL Hgb 8.4 L (13.0-17.0) g/dL Hct 26.3 L (39.6-50.0) % MCH 26.2 L (27.0-32.0) pg MCHC 31.9 L (32.0-37.0) g/dL RDW 15.1 H (11.5-14.5) % Immature Gran # 0.08 H (0.00-0.04) X 10*3/uL Neutrophils # 8.01 H (1.80-7.70) X 10*3/uL Monocytes # 1.36 H (0.20-1.00) X 10*3/uL Creatinine (0.66-1.25) mg/dL POC Glucose (mg/dL) 143 H 167 H (70-110) mg/dL 05/23/24 05/23/24 05/24/24 Range/Units 17:32 20:00 04:53 WBC (4.50-10.00) X 10*3/uL RBC (4.40-5.60) X 10*6/uL Hgb (13.0-17.0) g/dL Hct (39.6-50.0) % MCH (27.0-32.0) pg MCHC (32.0-37.0) g/dL RDW (11.5-14.5) % Immature Gran # (0.00-0.04) X 10*3/uL Neutrophils # (1.80-7.70) X 10*3/uL Monocytes # (0.20-1.00) X 10*3/uL Creatinine 0.65 L (0.66-1.25) mg/dL POC Glucose (mg/dL) 233 H 174 H (70-110) mg/dL 05/24/24 Range/Units 05:48 WBC (4.50-10.00) X 10*3/uL RBC (4.40-5.60) X 10*6/uL Hgb (13.0-17.0) g/dL Hct (39.6-50.0) % MCH (27.0-32.0) pg MCHC (32.0-37.0) g/dL RDW (11.5-14.5) % Immature Gran # (0.00-0.04) X 10*3/uL Neutrophils # (1.80-7.70) X 10*3/uL Monocytes # (0.20-1.00) X 10*3/uL Creatinine (0.66-1.25) mg/dL POC Glucose (mg/dL) 141 H (70-110) mg/dL Microbiology - Last 24 Hours (Table) 05/20/24 22:00 Gram Stain - Final Leg - Right Wound Culture - Final Escherichia coli Aide albicans 05/20/24 11:07 Blood Culture - Preliminary Blood 05/22/24 15:20 Gram Stain - Preliminary Leg - Right 05/22/24 15:20 Gram Stain - Preliminary Leg - Right Assessment and Plan Assessment: 1. Right lower extremity chronic diabetic wounds status post debridement and washout 2. Diabetes mellitus 3. Recent osteomyelitis left great toe status post amputation 4. Atrial fibrillation with RVR, on Eliquis currently on hold, patient getting Lovenox 5. Coronary artery disease 6. Peripheral neuropathy Plan: 1. Continue antibiotics per infectious disease 2. Daily dressing change with Dakin's wet-to-dry 3. Diet as tolerated 4. May resume Lovenox 5. Right lower extremity weightbearing as tolerated 6. Consult orthopedic surgery to evaluate right knee 7. Rest of medical management per primary medical team Thank you for this consultation, we will continue to follow. The impression and plan of care has been dictated as directed. Dr. Wright I performed a history and examination of this patient, discussed the same with the dictator. I agree with the dictator's note ,documented as a scribe. Any additional findings or plans will be noted.
[2024-05-24] MEDS: SODIUM HYPOCHLORITE 0.5% 480 ML BOT MISCELLANE SCH ×2 (12:05→12:09)
[2024-05-24 12:09] LABS: Glucose,Whole Blood 149 mg/dL (70-110)
[2024-05-24] MEDS: FLUCONAZOLE IN NACL,ISO-OSM 200 MG in SALINE 1 100ML.BAG IVPB SCH (12:09)
[2024-05-24] MEDS: VANCOMYCIN TROUGH DUE 1 EACH MISC MISCELLANE ONE (13:28)
--- NOTE | 2024-05-24 15:25 | XR ---
EXAMINATION TYPE: XR knee complete RT DATE OF EXAM: 05/24/2024 COMPARISON: Tibia/fibula 05/15/[address] 05/22/2024 HISTORY: 43-year-old male with a right knee pain TECHNIQUE: 3 views FINDINGS: Moderate to large joint effusion. No acute fracture, subluxation, or dislocation is seen. However, th ere is extensive soft tissue air posteriorly. Arterial calcifications suggest diabetes or chronic kid norah disease. IMPRESSION: 1. Extensive posterior soft tissue air likely relating to prior surgery/fasciotomy and packing materi al when correlating with recent CT. However, some concurrent underlying infection should be excluded on a clinical basis. 2. There is a moderate to large knee joint effusion which is nonspecific. Again, infection should be excluded on a clinical basis. 3. No acute osseous abnormality seen. [facility], , 05/24/2024 3:23 PM
--- NOTE | 2024-05-24 16:11 | P.CNOR ---
History of Present Illness - [facility] Consult date: 05/24/24 Requesting physician: Constanza Castro Consult reason: other (Right Knee evaluation, RLE infection s/p debridement) History of present illness: History of Presenting Illness Patient is a pleasant 43-year-old male who presented to the ER with complaint of right lower extremity wound infection. Patient reports over the last month and a half he has been struggling with a chronic wound of his right lower extremity. Patient does attend wound care every Monday. Patient does have a past medical history of severely uncontrolled type 2 diabetes on insulin, hypertension, hyperlipidemia, atrial fibrillation on Eliquis, chronic neuropathy, history of ESBL with infected right big toe with osteomyelitis post amputation 3 weeks ago in [facility]. During this hospital admission patient has undergone 2 incision and drain debridement procedures. The first procedure being on 05/22/2024: Debridement right lower extremity, Foot 8 x 6 x 1.5 cm to muscle and tendon and Posterior calf 30 x 15 x 2.5 cm to muscle and tendon, 10 cm tunneling at 12:00, 8 cm tunneling at 3:00. The second procedure being on 05/23/2024: Debridement and washout of right lower extremity wound, sharp excisional debridement right posterior calf wound 32 x 15 x 3.5 cm to muscle and right thigh wound 7 x 3 x 3 cm to muscle. Our services have been consulted for evaluation of the right knee to rule out any possibility of infection into the joint. Patient seen and examined this afternoon. Patient is resting comfortably in bed. Right lower extremity does present elevated on pillows and is wrapped in Kerlix dressing from his foot to just above his right knee. Right knee does p resent with edema without erythema. Patient denies any pain with palpation. Patient demonstrates that he is able to flex his knee without difficulty. Patient reports if it was not for the dressings and surgical incisions he feels that he would be able to have full range of motion of his right knee. Patient states that he did work with physical therapy today and was able to stand at bedside and take a few steps. He denies any pain to his right knee when bearing weight onto the right lower extremity. Review of Systems Pertinent positives and negatives as discussed in HPI, a complete review of systems was performed and all other systems are negative. Physical Examination Inspection: Surgical incisions (as described above in the HPI) are open with packing and wrapped with Kerlix dressing. The right knee is edematous without erythema. Sensation: Sensation is decreased through the right lower extremity. This has some improvement since procedures. Palpation: Right knee is tender to palpation due to surgical procedures. Range of motion: Patient does have difficulty to demonstrate full range of motion of the RLE due to surgery; ROM limited to RLE Motor: 5/5 in all major motor groups in the bilateral upper and left extremities and 4-/5 in the right lower extremity Special tests: Negative Homans bilaterally. Negative Presley bilaterally. Negative clonus bilaterally. Neurovascular: Radial pulse intact, 2+ bilaterally. Cap refill under 3 seconds in digits upper extremities. Assessment CT scan of the right lower extremity taken on 05/22/2024 demonstrates demonstrates a moderate to large right knee joint effusion. Right lower extremity chronic diabetic wounds status post debridement and washout Recent osteomyelitis left great toe status post amputation Peripheral neuropathy Right knee joint effusion Plan At this time we do not recommend any emergent/urgent orthopedic surgical intervention. Dr. Smart will be performing an Aspiration of the Right knee today 05/24/24. Fluid will be sent for Cell count, Gram stain and Cultures. 2. Appreciate medical management 3. Continue with wound care as directed. 4. Pain management - Continue with current regimen 5. Appreciate consult. I reviewed and discussed this case with my attending Dr. Smart, whom has reviewed this chart and films and is in agreement with assessment and plan of care as outlined above. I have personally seen and examined the patient, performed the documentation and the assessment and plan as written. Number of minutes spent on the visit: 30m. Past Medical History Past Medical History: Atrial Fibrillation, Coronary Artery Disease (CAD), Diabetes Mellitus, Hyperlipidemia, Hypertension Additional Past Medical History / Comment(s): neuropathy Last Myocardial Infarction Date:: 11/20/2020 History of Any Multi-Drug Resistant Organisms: ESBL Year Discovered:: 05/20/24 MDRO Source:: RT LEG, LEFT FOOT Past Surgical History: Back Surgery, Heart Catheterization With Stent, Hernia Repair Additional Past Surgical History / Comment(s): 4 cardiac stents 11/20/2020, 1 cardiac stent 11/23/2020 Past Anesthesia/Blood Transfusion Reactions: No Reported Reaction Date of Last Stent Placement:: 2020 Past Psychological History: Depression Smoking Status: Never smoker Past Alcohol Use History: None Reported Past Drug Use History: None Reported - Past Family History Mother Family Medical History: Diabetes Mellitus Father Family Medical History: Congestive Heart Failure (CHF), Coronary Artery Disease (CAD), Diabetes Mellitus, Hypertension, Myocardial Infarction ([place]) Additional Family Medical History / Comment(s): father 2018 from [place] Medications and Allergies Home Medications Medication Instructions Recorded Confirmed Type Atorvastatin [Lipitor] 80 mg PO DAILY 10/12/22 05/20/24 History Pantoprazole [Protonix] 40 mg PO BID 10/12/22 05/20/24 History amLODIPine [Norvasc] 5 mg PO DAILY 10/12/22 05/20/24 History carvediloL [Coreg] 25 mg PO BID 10/12/22 05/20/24 History Albuterol Sulfate [Ventolin HFA] 2 puff INHALATION RT-Q4H PRN 05/15/24 05/20/24 History Apixaban [Eliquis] 5 mg PO BID 05/15/24 05/20/24 History Aspirin 81 mg PO DAILY 05/15/24 05/20/24 History HYDROcodone/APAP 5-325MG [[place] 1 tab PO Q6H PRN 05/15/24 05/20/24 History 5-325] INSULIN ASPART (NovoLOG) [NovoLOG 15 unit SQ TID-W/MEALS 05/15/24 05/20/24 History (formulary)] Insulin Detemir (Levemir) [Levemir] 15 unit SQ BID 05/15/24 05/20/24 History Nitroglycerin Sl Tabs [Nitrostat] 0.4 mg SL Q5M PRN 05/15/24 05/20/24 History Sucralfate [Carafate] 1 gm PO ACHS 05/15/24 05/20/24 History Furosemide [Lasix] 40 mg PO DAILY 05/20/24 05/20/24 History Allergies Allergy/AdvReac Type Severity Reaction Status Date / Time No Known Allergies Allergy Verified 05/22/24 13:34 Results - Labs Labs: Abnormal Lab Results - Last 24 Hours (Table) 05/23/24 05/23/24 05/24/24 Range/Units 17:32 20:00 04:53 Creatinine 0.65 L (0.66-1.25) mg/dL POC Glucose (mg/dL) 233 H 174 H (70-110) mg/dL 05/24/24 05/24/24 Range/Units 05:48 12:08 Creatinine (0.66-1.25) mg/dL POC Glucose (mg/dL) 141 H 149 H (70-110) mg/dL Microbiology - Last 24 Hours (Table) 05/22/24 15:20 Gram Stain - Preliminary Leg - Right Wound Culture - Preliminary Escherichia coli Aide albicans 05/22/24 15:20 Gram Stain - Preliminary Leg - Right Wound Culture - Preliminary Escherichia coli Aide albicans 05/20/24 22:00 Gram Stain - Final Leg - Right Wound Culture - Final Escherichia coli Aide albicans 05/20/24 11:07 Blood Culture - Preliminary Blood H & H 05/20/24 05/21/24 05/22/24 Range/Units 11:07 05:21 06:51 Hgb 15.9 10.6 L D 9.9 L (13.0-17.5) gm/dL Hct 47.5 32.6 L 31.0 L (39.0-53.0) % 05/23/24 Range/Units 06:46 Hgb 8.4 L (13.0-17.5) gm/dL Hct 26.3 L (39.0-53.0) % Result Diagrams: 05/23/24 06:46 05/24/24 04:53
--- NOTE | 2024-05-24 16:55 | P.OP ---
Date of Procedure: 05/24/24 Preoperative Diagnosis: Right knee effusion Postoperative Diagnosis: Same Procedure(s) Performed: Aspiration right kneefluid sent for Gram stain, cultures, cell count Anesthesia: local Surgeon: Laith Smart Estimated Blood Loss (ml): 0 Pathology: other (Fluid for cell count, cultures, Gram stain) Condition: stable Indications for Procedure: The patient is a 43-year-old male with a complicated medical course including multiple incision and drainage of the right lower extremity abscesses who presents with right knee swelling. A discussion of the risks and benefits of aspiration of the right knee was made with the patient. He opted to proceed. Informed consent was obtained. Operative Findings: 36 cc of cloudy fluid Description of Procedure: I prepped the right lateral knee with Betadine and alcohol. 2 cc of 1% lidocaine was injected into the soft tissues. 36 cc of cloudy joint fluid was aspirated. This was sent in a sterile container for evaluation including cell count, Gram stain, and cultures. He tolerated the procedure well. There was no complications.
[2024-05-24] MEDS: MEROPENEM 1 GM in SODIUM CHLORIDE 0.9% 100 ML IVPB SCH (17:04)
[2024-05-24 17:10] LABS: Glucose,Whole Blood 107 mg/dL (70-110)
[2024-05-24 19:08] LABS: Appearance,BF Cloudy; Color,BF Orange
[2024-05-24 19:09] LABS: RBC, Body Fluid 8060 /uL
[2024-05-24 19:14] LABS: Nucleated Cells, Body Fluid 5260 /uL
[2024-05-24 19:16] LABS: Mononuclear WBC,Body Fluid 4 %; Polynuclear WBC,Body Fluid 96 %; Total Cells Counted,Body Fluid 100
[2024-05-24 21:29] LABS: Glucose,Whole Blood 114 mg/dL (70-110)
--- NOTE | 2024-05-24 22:14 | P.PN ---
Subjective Progress Note Date: 05/24/24 43-year-old male with a past medical history significant for diabetes mellitus hypertension hyperlipidemia coronary artery disease atrial fibrillation apparently has been dealing with the right lower extremity wound both to the right lower leg and foot area that he has for couple of weeks being admitted to hospital with worsening wound and concern for infection.Patient was taken to the OR last evening and this patient was status post sharp excisional debridement of the right leg concerning for necrotizing fasciitis and drainage of the abscess procedure completed on 05/22/2024 with repeat debridement this afternoon. Objective - Vital Signs Vital signs: Vital Signs Temp 98.4 F 05/24/24 07:33 Pulse 63 05/24/24 13:50 Resp 23 05/24/24 13:50 BP 100/60 05/24/24 07:33 Pulse Ox 94 L 05/24/24 07:33 FiO2 Intake & Output 05/23/24 05/24/24 05/24/24 18:59 06:59 18:59 Intake Total 1001 356 Output Total 20 1100 Balance 981 -1100 356 Intake: IV 1001 Oral 0 356 Output: Urine 1100 Estimated Blood Loss 20 Other: Voiding Method Urinal Urinal # Voids 2 # Bowel Movements 1 0 - Exam General Appearance: Alert, cooperative, no distress, appears stated age. Neck HEENT: Supple, no lymphadenopathy, no thyroid enlargement, no carotid bruits. Lungs: Clear to auscultation without crackles or wheezes no rhonchi, no deformity. Chest Wall: Chest wall normal expansion with deep inspiration no tenderness and no deformity was found on exam, no costochondral pain or discomfort. Heart: Regular rate and rhythm, S1, S2 normal, no murmur, rub or gallop. Abdomen: Soft, non-tender, bowel sounds active all four quadrants, no masses, no organomegaly. Extremities: Left foot has left big toe amputation, right foot has lateral aspect of large area of slough with ulcerated area stage III Skin: Skin color, texture, tugor normal, no rashes or lesions. Neurologic: Alert oriented x3 cranial nerves II through XII intact, no motor deficit, no abnormal balance or gait. - Labs CBC & Chem 7: 05/23/24 06:46 05/24/24 04:53 Labs: Abnormal Lab Results - Last 24 Hours (Table) 05/23/24 05/23/24 05/24/24 Range/Units 17:32 20:00 04:53 Creatinine 0.65 L (0.66-1.25) mg/dL POC Glucose (mg/dL) 233 H 174 H (70-110) mg/dL 05/24/24 05/24/24 Range/Units 05:48 12:08 Creatinine (0.66-1.25) mg/dL POC Glucose (mg/dL) 141 H 149 H (70-110) mg/dL Microbiology - Last 24 Hours (Table) 05/22/24 15:20 Gram Stain - Preliminary Leg - Right Wound Culture - Preliminary Escherichia coli Aide albicans 05/22/24 15:20 Gram Stain - Preliminary Leg - Right Wound Culture - Preliminary Escherichia coli Aide albicans 05/20/24 22:00 Gram Stain - Final Leg - Right Wound Culture - Final Escherichia coli Aide albicans 05/20/24 11:07 Blood Culture - Preliminary Blood Assessment and Plan Assessment: Severe nonhealing ulcerated infected right foot and leg with 2 large different location lower part of the leg stage III and dorsalis part of the foot with stage II, culture was done and remain on antibiotic with vancomycin and ertapenem which seem to respond well to it. Had long discussion with Dr. Wright vascular about the plan she is planning to take him back to the OR today for more debridement and wash of the wound but she is wanting him the area is very bad might require above-knee amputation which apparently patient has consented to it if that is the best option plan and the safest. Recent osteomyelitis of the left big toe post amputation still recovering from it so far. Diabetic foot: With nonhealing ulcerated area become slightly bit worse especially with his blood sugar being quite bit high, continue aggressive management, culture positive for E. coli he remain on ertapenem and vancomycin. Going for more debridement and watch today. Type 2 diabetes not controlled with A1c major from today at 12.8, medication were adjusted he is on Levemir 15 units twice a day and NovoLog 7 units AC meals plus sliding scales along with Tradjenta which seem to control her blood sugar much better. A-fib with RVR: Remain on Eliquis 5 mg twice a day still on Coreg 25 mg twice daily as well. Hold Eliquis till after debridement is done. Hopefully will resume Eliquis 48 hours after the surgery if there is no further surgery required. Atherosclerotic heart disease: Still seen cardiology remain on medical management with Eliquis, Lipitor, aspirin, Coreg and nitro. Severe neuropathy: Currently on pain medication only not on any gabapentin or pregabalin but something should consider definitely. Hyponatremia: Mild most like secondary to severity of infection. Gastroparesis and severe GERD: Remain on Carafate along with Protonix. Hypertension: Will continue Coreg 25 mg twice a day, amlodipine 5 mg daily and still on Lasix 40 mg a day. GI prophylaxis: Continue pantoprazole.
[2024-05-25] MEDS: VANCOMYCIN 1,750 MG in SODIUM CHLORIDE 0.9% 500 ML 500 ML IVPB SCH (02:25)
[2024-05-25 06:34] LABS: African American GFR (CKD) >90 (>60 ml/min/1.73 sqM); Anion Gap 4 mmol/L; Blood Urea Nitrogen 14 mg/dL (9-20); Calcium 7.5 mg/dL (8.4-10.2); Carbon Dioxide 21 mmol/L (22-30); Chloride 105 mmol/L (98-107); Glucose 156 mg/dL (74-99); Non-African American GFR(CKD) >90 (>60 ml/min/1.73 sqM); Potassium 4.2 mmol/L (3.5-5.1); Sodium 130 mmol/L (137-145)
[2024-05-25 06:34] LABS: Glucose,Whole Blood 171 mg/dL (70-110)
[2024-05-25 09:23] LABS: Basophils # (A) 0.05 X 10*3/uL (0.00-0.10); Basophils % (A) 0.5 %; Eosinophils # (A) 0.35 X 10*3/uL (0.04-0.35); Eosinophils % (A) 3.6 %; HCT 24.7 % (39.6-50.0); HGB 7.8 g/dL (13.0-17.0); Lymphocytes # (A) 1.63 X 10*3/uL (0.90-5.00); MCH 25.5 pg (27.0-32.0); MCHC 31.6 g/dL (32.0-37.0); MCV 80.7 FL (80.0-97.0); Mean Platelet Volume 10.3 FL (9.5-12.2); Monocytes % (A) 10.4 %; NRBC Per 100 WBC 0 X 10*3/uL (0.00-0.01); Neutrophils # (A) 6.49 X 10*3/uL (1.80-7.70); Neutrophils % (A) 67.8 %; Platelet Count 399 X 10*3/uL (140-440); RBC 3.06 X 10*6/uL (4.40-5.60); RDW 15.2 % (11.5-14.5); WBC 9.59 X 10*3/uL (4.50-10.00)
[2024-05-25 11:56] LABS: Glucose,Whole Blood 245 mg/dL (70-110)
--- NOTE | 2024-05-25 14:01 | P.PN ---
Subjective Progress Note Date: 05/24/24 Principal diagnosis: Reason for follow-up is right lower extremity and foot wound Patient is a 43-year-old male with a past medical history significant for diabetes mellitus hypertension hyperlipidemia coronary artery disease atrial fibrillation apparently has been dealing with the right lower extremity wound both to the right lower leg and foot area that he has for couple of weeks being admitted to hospital with worsening wound and concern for infection.Patient was taken to the OR last evening and this patient was status post sharp excisional debridement of the right leg concerning for necrotizing fasciitis and drainage of the abscess procedure completed on 05/22/2024 with repeat debridement this afternoon. On today's evaluation that is 05/24/2024,the patient remains to be afebrile, patient is on room air not requiring supplemental oxygen and denies any sh ortness of breath no chest pain or cough.Patient denies having any nausea or vomiting, no abdominal pain and no diarrhea has been reported, pain to the right lower extremity is currently controlled. Patient did have a sed rate of 38 creatinine 0.65 CRP is 18.30 Objective - Vital Signs Vital signs: Vital Signs Temp 98.4 F 05/24/24 07:33 Pulse 71 05/24/24 07:33 Resp 18 05/24/24 01:47 BP 100/60 05/24/24 07:33 Pulse Ox 94 L 05/24/24 07:33 FiO2 Intake & Output 05/23/24 05/24/24 05/24/24 18:59 06:59 18:59 Intake Total 1001 356 Output Total 20 1100 Balance 981 -1100 356 Intake: IV 1001 Oral 0 356 Output: Urine 1100 Estimated Blood Loss 20 Other: Voiding Method Urinal # Bowel Movements 1 - Exam GENERAL DESCRIPTION: Middle-age male lying in bed in no distress RESPIRATORY SYSTEM: Unlabored breathing , decreased breath sounds at bases HEART: S1 S2 regular rate and rhythm , ABDOMEN: Soft , no tenderness EXTREMITIES: Right leg is currently dressed in OR dressing - Labs CBC & Chem 7: 05/25/24 06:04 05/25/24 06:04 Labs: Abnormal Lab Results - Last 24 Hours (Table) 05/23/24 05/23/24 05/23/24 Range/Units 13:36 17:32 20:00 Creatinine (0.66-1.25) mg/dL POC Glucose (mg/dL) 167 H 233 H 174 H (70-110) mg/dL 05/24/24 05/24/24 Range/Units 04:53 05:48 Creatinine 0.65 L (0.66-1.25) mg/dL POC Glucose (mg/dL) 141 H (70-110) mg/dL Microbiology - Last 24 Hours (Table) 05/22/24 15:20 Gram Stain - Preliminary Leg - Right Wound Culture - Preliminary Escherichia coli Aide albicans 05/22/24 15:20 Gram Stain - Preliminary Leg - Right Wound Culture - Preliminary Escherichia coli Aide albicans 05/20/24 22:00 Gram Stain - Final Leg - Right Wound Culture - Final Escherichia coli Aide albicans 05/20/24 11:07 Blood Culture - Preliminary Blood Assessment and Plan (1) Leg wound, right Current Visit: Yes Status: Acute Code(s): S81.801A - UNSPECIFIED OPEN WOUND, RIGHT LOWER LEG, INITIAL ENCOUNTER SNOMED Code(s): 89349327922229977 (2) Diabetic foot infection Current Visit: Yes Status: Acute Code(s): E11.628 - TYPE 2 DIABETES MELLITUS WITH OTHER SKIN COMPLICATIONS; L08.9 - LOCAL INFECTION OF THE SKIN AND SUBCUTANEOUS TISSUE, UNSP SNOMED Code(s): 810054882 (3) Diabetic foot ulcer Current Visit: No Status: Acute Code(s): E11.621 - TYPE 2 DIABETES MELLITUS WITH FOOT ULCER; L97.509 - NON-PRESSURE CHRONIC ULCER OTH PRT UNSP FOOT W UNSP SEVERITY SNOMED Code(s): 753248836 Plan: 1patient with a chronic nonhealing wound to the right lower extremity including both the leg and the foot area that has been there for couple of weeks with recent admission at [facility] and has been treated with IV device therapy subsequently was discharged on oral antibiotic that apparently was switched to doxycycline by his primary care physician now presenting with worsening wound concerning for wound infection and cellulitis will need to cover for both gram- positive as well as gram-negative pathogen. 2patient did have extensive surgery debridement of the right lower extremity concerning for necrotizing fasciitis Ortho has been consulted with concern for possible involvement of the joint for which Ortho has been consulted 3patient culture grew ESBL E. coli and Aide, antibiotic has been just to meropenem Diflucan has been added Dictation was produced using [employer] software. please excuse any grammatical, word or spelling errors. Time with Patient: Less than 30
--- NOTE | 2024-05-25 14:02 | P.PN ---
Subjective Progress Note Date: 05/25/24 Principal diagnosis: Reason for follow-up is right lower extremity and foot wound Patient is a 43-year-old male with a past medical history significant for diabetes mellitus hypertension hyperlipidemia coronary artery disease atrial fibrillation apparently has been dealing with the right lower extremity wound both to the right lower leg and foot area that he has for couple of weeks being admitted to hospital with worsening wound and concern for infection.Patient was taken to the OR last evening and this patient was status post sharp excisional debridement of the right leg concerning for necrotizing fasciitis and drainage of the abscess procedure completed on 05/22/2024 with repeat debridement this afternoon. On today's evaluation that is 05/25/2024, the patient continues to be afebrile, the patient is on room air and breathing comfortably, the Pt denies having any chest pain or cough, the patient denies having any abdominal pain no vomiting or any diarrhea, still complaining of pain to the right lower extremity but no worsening. Patient white count normalized to 9.59, creatinine 0.95 right knee aspirate did shows a cloudy fluid with 52,000 WBC Objective - Vital Signs Vital signs: Vital Signs Temp 99.3 F 05/25/24 07:00 Pulse 84 05/25/24 08:00 Resp 16 05/25/24 08:00 BP 129/81 05/25/24 07:00 Pulse Ox 95 05/25/24 07:00 FiO2 Intake & Output 05/24/24 05/25/24 05/25/24 18:59 06:59 18:59 Intake Total 556 Output Total 1000 525 Balance 556 -1000 -525 Intake: Oral 556 Output: Urine 1000 525 Other: Voiding Method Urinal Urinal Urinal # Voids 1 # Bowel Movements 0 - Exam GENERAL DESCRIPTION: Middle-age male lying in bed in no distress RESPIRATORY SYSTEM: Unlabored breathing , decreased breath sounds at bases HEART: S1 S2 regular rate and rhythm , ABDOMEN: Soft , no tenderness EXTREMITIES: Right leg is currently dressed in OR dressing - Labs CBC & Chem 7: 05/25/24 06:04 05/25/24 06:04 Labs: Abnormal Lab Results - Last 24 Hours (Table) 05/24/24 05/24/24 05/24/24 Range/Units 04:53 04:53 12:08 RBC (4.40-5.60) X 10*6/uL Hgb (13.0-17.0) g/dL Hct (39.6-50.0) % MCH (27.0-32.0) pg MCHC (32.0-37.0) g/dL RDW (11.5-14.5) % Immature Gran # (0.00-0.04) X 10*3/uL ESR 38 H (0-15) mm/Hr Sodium (137-145) mmol/L Carbon Dioxide (22-30) mmol/L Glucose (74-99) mg/dL POC Glucose (mg/dL) 149 H (70-110) mg/dL Calcium (8.4-10.2) mg/dL C-Reactive Protein 18.30 H (0.00-0.80) mg/dL 05/24/24 05/25/24 05/25/24 Range/Units 21:28 06:04 06:04 RBC 3.06 L (4.40-5.60) X 10*6/uL Hgb 7.8 L (13.0-17.0) g/dL Hct 24.7 L (39.6-50.0) % MCH 25.5 L (27.0-32.0) pg MCHC 31.6 L (32.0-37.0) g/dL RDW 15.2 H (11.5-14.5) % Immature Gran # 0.07 H (0.00-0.04) X 10*3/uL ESR (0-15) mm/Hr Sodium 130 L (137-145) mmol/L Carbon Dioxide 21 L (22-30) mmol/L Glucose 156 H (74-99) mg/dL POC Glucose (mg/dL) 114 H (70-110) mg/dL Calcium 7.5 L (8.4-10.2) mg/dL C-Reactive Protein (0.00-0.80) mg/dL 05/25/24 05/25/24 Range/Units 06:33 11:55 RBC (4.40-5.60) X 10*6/uL Hgb (13.0-17.0) g/dL Hct (39.6-50.0) % MCH (27.0-32.0) pg MCHC (32.0-37.0) g/dL RDW (11.5-14.5) % Immature Gran # (0.00-0.04) X 10*3/uL ESR (0-15) mm/Hr Sodium (137-145) mmol/L Carbon Dioxide (22-30) mmol/L Glucose (74-99) mg/dL POC Glucose (mg/dL) 171 H 245 H (70-110) mg/dL Calcium (8.4-10.2) mg/dL C-Reactive Protein (0.00-0.80) mg/dL Microbiology - Last 24 Hours (Table) 05/24/24 16:48 Gram Stain - Preliminary Knee - Right 05/22/24 15:20 Gram Stain - Preliminary Leg - Right Wound Culture - Preliminary Escherichia coli Aide albicans 05/22/24 15:20 Gram Stain - Preliminary Leg - Right Wound Culture - Preliminary Escherichia coli Aide albicans Assessment and Plan (1) Leg wound, right Current Visit: Yes Status: Acute Code(s): S81.801A - UNSPECIFIED OPEN WOUND, RIGHT LOWER LEG, INITIAL ENCOUNTER SNOMED Code(s): 20651316368339971 (2) Diabetic foot infection Current Visit: Yes Status: Acute Code(s): E11.628 - TYPE 2 DIABETES MELLITUS WITH OTHER SKIN COMPLICATIONS; L08.9 - LOCAL INFECTION OF THE SKIN AND SUBCUTANEOUS TISSUE, UNSP SNOMED Code(s): 527173583 (3) Diabetic foot ulcer Current Visit: No Status: Acute Code(s): E11.621 - TYPE 2 DIABETES MELLITUS WITH FOOT ULCER; L97.509 - NON-PRESSURE CHRONIC ULCER OTH PRT UNSP FOOT W UNSP SEVERITY SNOMED Code(s): 494779947 Plan: 1patient with a chronic nonhealing wound to the right lower extremity including both the leg and the foot area that has been there for couple of weeks with recent admission at [facility] and has been treated with IV device therapy subsequently was discharged on oral antibiotic that apparently was switched to doxycycline by his primary care physician now presenting with worsening wound concerning for wound infection and cellulitis will need to cover for both gram- positive as well as gram-negative pathogen. 2patient did have extensive surgery debridement of the right lower extremity concerning for necrotizing fasciitis Ortho has been consulted with concern for possible involvement of the joint for which Ortho has been consulted patient is status post aspirate of the right knee which was cloudy with 52,000 WBC await further recommendation from Ortho 3patient culture grew ESBL E. coli and Aide, 4patient is currently covered with meropenem Diflucan will need a PICC line and outpatient IV antibiotic therapy Dictation was produced using [employer] dictation software. please excuse any grammatical, word or spelling errors. Time with Patient: Less than 30
[2024-05-25 17:10] LABS: Glucose,Whole Blood 120 mg/dL (70-110)
[2024-05-25 20:12] LABS: Glucose,Whole Blood 102 mg/dL (70-110)
[2024-05-26 06:05] LABS: Glucose,Whole Blood 106 mg/dL (70-110)
--- NOTE | 2024-05-26 09:49 | P.PN ---
Subjective Progress Note Date: 05/26/24 Principal diagnosis: Right knee effusion/complex infection right lower extremity The patient notes minimal right knee pain Objective - Vital Signs Vital signs: Vital Signs Temp 98.5 F 05/26/24 07:00 Pulse 68 05/26/24 07:00 Resp 16 05/26/24 07:00 BP 124/57 05/26/24 07:00 Pulse Ox 96 05/26/24 07:00 FiO2 Intake & Output 05/25/24 05/26/24 05/26/24 18:59 06:59 18:59 Output Total 3767 395 364 Balance -5314 -365 -752 Output: Urine 0321 811 689 Other: Voiding Method Urinal - Exam Right kneemild effusionno warmth or erythema Range of motion -10-90 of flexion Right lower extremity dressing with moderate drainage - Constitutional General appearance: Present: no acute distress - Labs CBC & Chem 7: 05/25/24 06:04 05/25/24 06:04 Labs: Abnormal Lab Results - Last 24 Hours (Table) 05/25/24 05/25/24 Range/Units 11:55 17:08 POC Glucose (mg/dL) 245 H 120 H (70-110) mg/dL Microbiology - Last 24 Hours (Table) 05/24/24 16:48 Gram Stain - Preliminary Knee - Right Body Fluid Culture - Preliminary Enterococcus faecalis 05/20/24 11:07 Blood Culture - Final Blood 05/22/24 15:20 Gram Stain - Final Leg - Right Wound Culture - Final Escherichia coli Aide albicans 05/22/24 15:20 Gram Stain - Final Leg - Right Wound Culture - Final Escherichia coli Aide albicans Assessment and Plan Assessment: Complex right leg infection/soft tissue defects Right septic knee Insulin-dependent diabetes Peripheral vascular disease Plan: At this point the patient has a significant infection right lower extremity with significant soft tissue defects along with extension of his infection into the right knee joint. At this point I feel the best therapeutic solution would be [id number] amputation. We'll defer to vascular surgery for further treatment. Another option would be answered to a tertiary care facility as this is a complex clinical condition/problem.
[2024-05-26 12:26] LABS: Glucose,Whole Blood 232 mg/dL (70-110)
[2024-05-26 13:36] LABS: African American GFR (CKD) >90 (>60 ml/min/1.73 sqM); Non-African American GFR(CKD) >90 (>60 ml/min/1.73 sqM)
[2024-05-26] MEDS ORDERED: VANCOMYCIN 1,750 MG in SODIUM CHLORIDE 0.9% 500 ML 500 ML IVPB SCH (14:00)
--- NOTE | 2024-05-26 14:56 | P.PN ---
Subjective Progress Note Date: 05/26/24 Principal diagnosis: Reason for follow-up is right lower extremity and foot wound Patient is a 43-year-old male with a past medical history significant for diabetes mellitus hypertension hyperlipidemia coronary artery disease atrial fibrillation apparently has been dealing with the right lower extremity wound both to the right lower leg and foot area that he has for couple of weeks being admitted to hospital with worsening wound and concern for infection.Patient was taken to the OR last evening and this patient was status post sharp excisional debridement of the right leg concerning for necrotizing fasciitis and drainage of the abscess procedure completed on 05/22/2024 with repeat debridement this afternoon. On today's evaluation that is 05/26/2024, Patient is afebrile patient is currently on room air and denies having any shortness of breath, the patient d enies any chest pain or cough, the patient denies any nausea vomiting did not have any abdominal pain and no diarrhea, the patient pain to the right lower extremity has decreased in intensity. Feeling slightly better. Patient did have creatinine 0.98 Vanco trough is 27.6 blood culture growing Enterococcus faecalis with sensitivities pending Objective - Vital Signs Vital signs: Vital Signs Temp 98.5 F 05/26/24 07:00 Pulse 68 05/26/24 07:00 Resp 16 05/26/24 07:00 BP 124/57 05/26/24 07:00 Pulse Ox 96 05/26/24 07:00 FiO2 Intake & Output 05/25/24 05/26/24 05/26/24 18:59 06:59 18:59 Intake Total 236 Output Total 7095 376 7529 Balance -6649 -673 -814 Intake: Oral 236 Output: Urine 0485 751 6566 Other: Voiding Method Urinal - Exam GENERAL DESCRIPTION: Middle-age male lying in bed in no distress RESPIRATORY SYSTEM: Unlabored breathing , decreased breath sounds at bases HEART: S1 S2 regular rate and rhythm , ABDOMEN: Soft , no tenderness EXTREMITIES: Right knee currently with no swelling or redness or warmth patient did have extensive wound to the right lower leg however overall wound base looks clean with no significant slough tissue surrounding redness - Labs CBC & Chem 7: 05/25/24 06:04 05/26/24 13:04 Labs: Abnormal Lab Results - Last 24 Hours (Table) 05/25/24 05/26/24 Range/Units 17:08 12:25 POC Glucose (mg/dL) 120 H 232 H (70-110) mg/dL Microbiology - Last 24 Hours (Table) 05/24/24 16:48 Gram Stain - Preliminary Knee - Right Body Fluid Culture - Preliminary Enterococcus faecalis 05/20/24 11:07 Blood Culture - Final Blood 05/22/24 15:20 Gram Stain - Final Leg - Right Wound Culture - Final Escherichia coli Aide albicans 05/22/24 15:20 Gram Stain - Final Leg - Right Wound Culture - Final Escherichia coli Aide albicans Assessment and Plan (1) Leg wound, right Current Visit: Yes Status: Acute Code(s): S81.801A - UNSPECIFIED OPEN WOUND, RIGHT LOWER LEG, INITIAL ENCOUNTER SNOMED Code(s): 76891911001205310 (2) Diabetic foot infection Current Visit: Yes Status: Acute Code(s): E11.628 - TYPE 2 DIABETES MELLITUS WITH OTHER SKIN COMPLICATIONS; L08.9 - LOCAL INFECTION OF THE SKIN AND SUBCUTANEOUS TISSUE, UNSP SNOMED Code(s): 712217923 (3) Diabetic foot ulcer Current Visit: No Status: Acute Code(s): E11.621 - TYPE 2 DIABETES MELLITUS WITH FOOT ULCER; L97.509 - NON-PRESSURE CHRONIC ULCER OTH PRT UNSP FOOT W UNSP SEVERITY SNOMED Code(s): 833792872 Plan: 1patient with a chronic nonhealing wound to the right lower extremity including both the leg and the foot area that has been there for couple of weeks ,patient did have extensive surgery debridement of the right lower extremity concerning for necrotizing fasciitis Ortho has been consulted with concern for possible involvement of the joint for which Ortho has aspirated the right knee which was cloudy with 5260 which is currently low for a septic joint however the cultures are now growing Enterococcus faecalis question of contamination as clinically not behaving as septic arthritis 3patient culture grew ESBL E. coli and Aide, and right knee culture with Enterococcus faecalis sensitivities pending 4patient currently being treated with meropenem Diflucan, with the vancomycin added last night I have detailed discussion with the patient and her family he did have reasonable chance of healing this wound infection and can save his leg he will be discussing it further with his vascular surgeon before making final decision care was also discussed with the covering admitting physician on the floor Dictation was produced using [employer] dictation software. please excuse any grammatical, word or spelling errors. Time with Patient: Greater than 30
[2024-05-26] MEDS: VANCOMYCIN TROUGH DUE 1 EACH MISC MISCELLANE ONE (15:26)
--- NOTE | 2024-05-26 17:19 | P.PN ---
Subjective Progress Note Date: 05/25/24 43-year-old male with a past medical history significant for diabetes mellitus hypertension hyperlipidemia coronary artery disease atrial fibrillation apparently has been dealing with the right lower extremity wound both to the right lower leg and foot area that he has for couple of weeks being admitted to hospital with worsening wound and concern for infection.Patient was taken to the OR last evening and this patient was status post sharp excisional debridement of the right leg concerning for necrotizing fasciitis and drainage of the abscess procedure completed on 05/22/2024 with repeat debridement this afternoon. 05/25/2024, the patient continues to be afebrile, the patient is on room air and breathing comfortably, the Pt denies having any chest pain or cough, the patient denies having any abdominal pain no vomiting or any diarrhea, still complaining of pain to the right lower extremity but no worsening. Patient white count normalized to 9.59, creatinine 0.95 right knee aspirate did shows a cloudy fluid with 52,000 WBC patient culture grew ESBL E. coli and Aide, patient is currently covered with meropenem Diflucan will need a PICC line and outpatient IV antibiotic therapy Objective - Vital Signs Vital signs: Vital Signs Temp 99.3 F 05/25/24 07:00 Pulse 84 05/25/24 08:00 Resp 16 05/25/24 08:00 BP 129/81 05/25/24 07:00 Pulse Ox 95 05/25/24 07:00 FiO2 Intake & Output 05/24/24 05/25/24 05/25/24 18:59 06:59 18:59 Intake Total 556 Output Total 1000 525 Balance 556 -1000 -525 Intake: Oral 556 Output: Urine 1000 525 Other: Voiding Method Urinal Urinal Urinal # Voids 1 # Bowel Movements 0 - Exam General Appearance: Alert, cooperative, no distress, appears stated age. Neck HEENT: Supple, no lymphadenopathy, no thyroid enlargement, no carotid bruits. Lungs: Clear to auscultation without crackles or wheezes no rhonchi, no deformity. Chest Wall: Chest wall normal expansion with deep inspiration no tenderness and no deformity was found on exam, no costochondral pain or discomfort. Heart: Regular rate and rhythm, S1, S2 normal, no murmur, rub or gallop. Abdomen: Soft, non-tender, bowel sounds active all four quadrants, no masses, no organomegaly. Extremities: Left foot has left big toe amputation, right foot has lateral aspect of large area of slough with ulcerated area stage III Skin: Skin color, texture, tugor normal, no rashes or lesions. Neurologic: Alert oriented x3 cranial nerves II through XII intact, no motor deficit, no abnormal balance or gait. - Labs CBC & Chem 7: 05/25/24 06:04 05/26/24 13:04 Labs: Abnormal Lab Results - Last 24 Hours (Table) 05/24/24 05/24/24 05/24/24 Range/Units 04:53 04:53 12:08 RBC (4.40-5.60) X 10*6/uL Hgb (13.0-17.0) g/dL Hct (39.6-50.0) % MCH (27.0-32.0) pg MCHC (32.0-37.0) g/dL RDW (11.5-14.5) % Immature Gran # (0.00-0.04) X 10*3/uL ESR 38 H (0-15) mm/Hr Sodium (137-145) mmol/L Carbon Dioxide (22-30) mmol/L Glucose (74-99) mg/dL POC Glucose (mg/dL) 149 H (70-110) mg/dL Calcium (8.4-10.2) mg/dL C-Reactive Protein 18.30 H (0.00-0.80) mg/dL 05/24/24 05/25/24 05/25/24 Range/Units 21:28 06:04 06:04 RBC 3.06 L (4.40-5.60) X 10*6/uL Hgb 7.8 L (13.0-17.0) g/dL Hct 24.7 L (39.6-50.0) % MCH 25.5 L (27.0-32.0) pg MCHC 31.6 L (32.0-37.0) g/dL RDW 15.2 H (11.5-14.5) % Immature Gran # 0.07 H (0.00-0.04) X 10*3/uL ESR (0-15) mm/Hr Sodium 130 L (137-145) mmol/L Carbon Dioxide 21 L (22-30) mmol/L Glucose 156 H (74-99) mg/dL POC Glucose (mg/dL) 114 H (70-110) mg/dL Calcium 7.5 L (8.4-10.2) mg/dL C-Reactive Protein (0.00-0.80) mg/dL 05/25/24 Range/Units 06:33 RBC (4.40-5.60) X 10*6/uL Hgb (13.0-17.0) g/dL Hct (39.6-50.0) % MCH (27.0-32.0) pg MCHC (32.0-37.0) g/dL RDW (11.5-14.5) % Immature Gran # (0.00-0.04) X 10*3/uL ESR (0-15) mm/Hr Sodium (137-145) mmol/L Carbon Dioxide (22-30) mmol/L Glucose (74-99) mg/dL POC Glucose (mg/dL) 171 H (70-110) mg/dL Calcium (8.4-10.2) mg/dL C-Reactive Protein (0.00-0.80) mg/dL Microbiology - Last 24 Hours (Table) 05/22/24 15:20 Gram Stain - Preliminary Leg - Right Wound Culture - Preliminary Escherichia coli Aide albicans 05/22/24 15:20 Gram Stain - Preliminary Leg - Right Wound Culture - Preliminary Escherichia coli Aide albicans Assessment and Plan Assessment: Severe nonhealing ulcerated infected right foot and leg with 2 large different location lower part of the leg stage III and dorsalis part of the foot with stage II, culture was done and remain on antibiotic with vancomycin and ertapenem which seem to respond well to it. Had long discussion with Dr. Adriana bell about the plan she is planning to take him back to the OR today for more debridement and wash of the wound but she is wanting him the area is very bad might require above-knee amputation which apparently patient has consented to it if that is the best option plan and the safest. Recent osteomyelitis of the left big toe post amputation still recovering from it so far. Diabetic foot: With nonhealing ulcerated area become slightly bit worse especially with his blood sugar being quite bit high, continue aggressive management, culture positive for E. coli he remain on ertapenem and vancomycin. Going for more debridement and watch today. Type 2 diabetes not controlled with A1c major from today at 12.8, medication were adjusted he is on Levemir 15 units twice a day and NovoLog 7 units AC meals plus sliding scales along with Tradjenta which seem to control her blood sugar much better. A-fib with RVR: Remain on Eliquis 5 mg twice a day still on Coreg 25 mg twice daily as well. Hold Eliquis till after debridement is done. Hopefully will resume Eliquis 48 hours after the surgery if there is no further surgery required. Atherosclerotic heart disease: Still seen cardiology remain on medical ma nagement with Eliquis, Lipitor, aspirin, Coreg and nitro. Severe neuropathy: Currently on pain medication only not on any gabapentin or pregabalin but something should consider definitely. Hyponatremia: Mild most like secondary to severity of infection. Gastroparesis and severe GERD: Remain on Carafate along with Protonix. Hypertension: Will continue Coreg 25 mg twice a day, amlodipine 5 mg daily and still on Lasix 40 mg a day. GI prophylaxis: Continue pantoprazole.
--- NOTE | 2024-05-26 17:22 | P.PN ---
Subjective Progress Note Date: 05/26/24 43-year-old male with a past medical history significant for diabetes mellitus hypertension hyperlipidemia coronary artery disease atrial fibrillation apparently has been dealing with the right lower extremity wound both to the right lower leg and foot area that he has for couple of weeks being admitted to hospital with worsening wound and concern for infection.Patient was taken to the OR last evening and this patient was status post sharp excisional debridement of the right leg concerning for necrotizing fasciitis and drainage of the abscess procedure completed on 05/22/2024 with repeat debridement this afternoon. 05/25/2024, the patient continues to be afebrile, the patient is on room air and breathing comfortably, the Pt denies having any chest pain or cough, the patient denies having any abdominal pain no vomiting or any diarrhea, still complaining of pain to the right lower extremity but no worsening. Patient white count normalized to 9.59, creatinine 0.95 right knee aspirate did shows a cloudy fluid with 52,000 WBC patient culture grew ESBL E. coli and Aide, patient is currently covered with meropenem Diflucan will need a PICC line and outpatient IV antibiotic therapy 05/26/2024 Patient is seen and evaluated with family at bedside; has been evaluated by orthopedic surgery; given significant infection right lower extremity and soft tissue defect along the extension of his infection to the right knee joint, or thopedic surgery recommending possibly proceeding with AKA Patient is afebrile patient is currently on room air and denies having any shortness of breath, the patient denies any chest pain or cough, the patient denies any nausea vomiting did not have any abdominal pain and no diarrhea, the patient pain to the right lower extremity has decreased in intensity. Feeling slightly better. Patient did have creatinine 0.98 Vanco trough is 27.6 blood culture growing Enterococcus faecalis with sensitivities pending Patient is currently on IV Merrem, Diflucan and vancomycin; per ID patient does have reasonable chance of healing wound infection; recommendations after repeat evaluation by vascular surgery Objective - Vital Signs Vital signs: Vital Signs Temp 98.5 F 05/26/24 07:00 Pulse 68 05/26/24 07:00 Resp 16 05/26/24 07:00 BP 124/57 05/26/24 07:00 Pulse Ox 96 05/26/24 07:00 FiO2 Intake & Output 05/25/24 05/26/24 05/26/24 18:59 06:59 18:59 Intake Total 236 Output Total 1724 105 800 Balance -1725 -675 -564 Intake: Oral 236 Output: Urine 2504 168 800 Other: Voiding Method Urinal - Exam General Appearance: Alert, cooperative, no distress, appears stated age. Neck HEENT: Supple, no lymphadenopathy, no thyroid enlargement, no carotid bruits. Lungs: Clear to auscultation without crackles or wheezes no rhonchi, no deformity. Chest Wall: Chest wall normal expansion with deep inspiration no tenderness and no deformity was found on exam, no costochondral pain or discomfort. Heart: Regular rate and rhythm, S1, S2 normal, no murmur, rub or gallop. Abdomen: Soft, non-tender, bowel sounds active all four quadrants, no masses, no organomegaly. Extremities: Left foot has left big toe amputation, right foot has lateral aspect of large area of slough with ulcerated area stage III Skin: Skin color, texture, tugor normal, no rashes or lesions. Neurologic: Alert oriented x3 cranial nerves II through XII intact, no motor deficit, no abnormal balance or gait. - Labs CBC & Chem 7: 05/25/24 06:04 05/26/24 13:04 Labs: Abnormal Lab Results - Last 24 Hours (Table) 05/25/24 05/25/24 Range/Units 11:55 17:08 POC Glucose (mg/dL) 245 H 120 H (70-110) mg/dL Microbiology - Last 24 Hours (Table) 05/24/24 16:48 Gram Stain - Preliminary Knee - Right Body Fluid Culture - Preliminary Enterococcus faecalis 05/20/24 11:07 Blood Culture - Final Blood 05/22/24 15:20 Gram Stain - Final Leg - Right Wound Culture - Final Escherichia coli Aide albicans 05/22/24 15:20 Gram Stain - Final Leg - Right Wound Culture - Final Escherichia coli Aide albicans Assessment and Plan Assessment: Severe nonhealing ulcerated infected right foot and leg with 2 large different location lower part of the leg stage III and dorsalis part of the foot with stage II, culture was done and remain on antibiotic with vancomycin and ertapenem which seem to respond well to it. Had long discussion with Dr. Adriana bell about the plan she is planning to take him back to the OR today for more debridement and wash of the wound but she is wanting him the area is very bad might require above-knee amputation which apparently patient has consented to it if that is the best option plan and the safest. Recent osteomyelitis of the left big toe post amputation still recovering from it so far. Diabetic foot: With nonhealing ulcerated area become slightly bit worse especially with his blood sugar being quite bit high, continue aggressive manage ment, culture positive for E. coli he remain on ertapenem and vancomycin. Going for more debridement and watch today. Type 2 diabetes not controlled with A1c major from today at 12.8, medication were adjusted he is on Levemir 15 units twice a day and NovoLog 7 units AC meals plus sliding scales along with Tradjenta which seem to control her blood sugar much better. A-fib with RVR: Remain on Eliquis 5 mg twice a day still on Coreg 25 mg twice daily as well. Hold Eliquis till after debridement is done. Hopefully will resume Eliquis 48 hours after the surgery if there is no further surgery req uired. Atherosclerotic heart disease: Still seen cardiology remain on medical management with Eliquis, Lipitor, aspirin, Coreg and nitro. Severe neuropathy: Currently on pain medication only not on any gabapentin or pregabalin but something should consider definitely. Hyponatremia: Mild most like secondary to severity of infection. Gastroparesis and severe GERD: Remain on Carafate along with Protonix. Hypertension: Will continue Coreg 25 mg twice a day, amlodipine 5 mg daily and still on Lasix 40 mg a day. GI prophylaxis: Continue pantoprazole.
[2024-05-26 17:41] LABS: Glucose,Whole Blood 202 mg/dL (70-110)
[2024-05-26 20:24] LABS: Glucose,Whole Blood 146 mg/dL (70-110)
[2024-05-26] MEDS: VANCOMYCIN 1,750 MG in SODIUM CHLORIDE 0.9% 500 ML 500 ML IVPB SCH (21:00)
[2024-05-27 04:57] LABS: African American GFR (CKD) >90 (>60 ml/min/1.73 sqM); Non-African American GFR(CKD) >90 (>60 ml/min/1.73 sqM)
[2024-05-27 05:57] LABS: Glucose,Whole Blood 108 mg/dL (70-110)
--- NOTE | 2024-05-27 09:31 | P.PN ---
Subjective Progress Note Date: 05/27/24 Principal diagnosis: Right lower extremity infection Patient is seen and examined today as a follow-up. He states overall he is feeling well. Wound cultures are finalized with E. coli and Aide albicans. Orthopedics was consulted regarding right knee. They aspirated his knee over the weekend, concerned with his complex case and diagnosed patient with septic knee. Preliminary right knee culture with Enterococcus faecalis. The recommendation was [id number] amputation versus transfer to tertiary center. He has been afebrile. Objective - Vital Signs Vital signs: Vital Signs Temp 98.7 F 05/27/24 08:00 Pulse 74 05/27/24 08:00 Resp 16 05/27/24 08:00 BP 128/80 05/27/24 08:00 Pulse Ox 96 05/27/24 08:00 FiO2 Intake & Output 05/26/24 05/27/24 05/27/24 18:59 06:59 18:59 Intake Total 236 Output Total 1500 1775 Balance -1264 -1775 Intake: Oral 236 Output: Urine 1500 1775 Other: Voiding Method Urinal # Bowel Movements 0 - Exam General appearance: The patient is alert, oriented, appears in no acute distress. HET: Head is normocephalic and atraumatic. Pupils are equal and reactive. Neck: Supple. Abdomen: Soft, nondistended. Extremities: Right lower extremity dressing changed. Lower extremity swelling. Wound to dorsal aspect with healthy pink tissue, granulation. Wound to calf with tendon exposure, with pink/red tissue, granulation. incision medial aspect of thigh with pink tissue, no pus or purulent drainage noted from any wound sites. Wounds without any malodor. Neurological: No focal deficits. - Labs CBC & Chem 7: 05/27/24 04:31 05/27/24 04:31 Labs: Abnormal Lab Results - Last 24 Hours (Table) 05/26/24 05/26/24 05/26/24 Range/Units 12:25 17:40 20:22 POC Glucose (mg/dL) 232 H 202 H 146 H (70-110) mg/dL Microbiology - Last 24 Hours (Table) 05/24/24 16:48 Gram Stain - Preliminary Knee - Right Body Fluid Culture - Preliminary Enterococcus faecalis Assessment and Plan Assessment: 1. Right lower extremity chronic diabetic wound infection status post debridement and washout 2. Diabetes mellitus 3. Recent osteomyelitis left great toe status post amputation 4. Atrial fibrillation with RVR, on Eliquis currently on hold, patient getting Lovenox 5. Coronary artery disease 6. Peripheral neuropathy 7. Right septic knee Plan: 1. Continue antibiotics per infectious disease 2. Daily dressing change with Dakin's wet-to-dry 3. Diet as tolerated 4. May resume Lovenox 5. Right lower extremity weightbearing as tolerated 6. Orthopedic surgery on consult, they are recommending [id number] amputation versus transfer to tertiary center for complex case Discussed with patient recommendations from orthopedic surgeon. Patient does not want [id number] amputation at this time, he is agreeable for transfer to tertiary center for further evaluation and advanced treatment right septic knee. Vascular surgery is agreeable do not believe that patient necessarily needs an [id number] amputation at this point. Agree with further evaluation/second opinion from advanced orthopedic surgeon. This is discussed with the primary medicine on case. Recommend transfer to tertiary center for advanced treatment. Thank you for this consultation, we will continue to follow. The impression and plan of care has been dictated as directed. Dr. Wright I performed a history and examination of this patient, discussed the same with the dictator. I agree with the dictator's note ,documented as a scribe. Any additional findings or plans will be noted.
[2024-05-27 10:57] LABS: Basophils % (A) 0 %; Eosinophils # (A) 0.3 k/uL (0-0.7); Eosinophils % (A) 3 %; HCT 26.2 % (39.0-53.0); Hypochromasia Moderate; Lymphocytes # (A) 1.6 k/uL (1.0-4.8); Lymphocytes % (A) 16 %; MCH 25.4 pg (25.0-35.0); MCHC 30.5 g/dL (31.0-37.0); MCV 83.4 fL (80.0-100.0); Mean Platelet Volume 7.9; Monocytes # (A) 0.8 k/uL (0-1.0); Monocytes % (A) 9 %; Neutrophils # (A) 7.2 k/uL (1.3-7.7); Neutrophils % (A) 72 %; Platelet Count 454 k/uL (150-450); RBC 3.14 m/uL (4.30-5.90); RDW 15.7 % (11.5-15.5)
[2024-05-27 11:14] LABS: Anion Gap 4 mmol/L; Blood Urea Nitrogen 14 mg/dL (9-20); Calcium 7.9 mg/dL (8.4-10.2); Carbon Dioxide 26 mmol/L (22-30); Chloride 102 mmol/L (98-107); Glucose 107 mg/dL (74-99); Magnesium 1.6 mg/dL (1.6-2.3); Potassium 4.1 mmol/L (3.5-5.1); Sodium 132 mmol/L (137-145)
[2024-05-27 12:41] LABS: Glucose,Whole Blood 171 mg/dL (70-110)
--- NOTE | 2024-05-27 14:18 | P.PN ---
Subjective Progress Note Date: 05/27/24 Patient evaluated today on the medical floor he is postoperative day 4 for washout and excisional debridement of the right knee orthopedics has concern that there is septic knee. He remains on combination of IV meropenem and IV vancomycin and IV fluconazole for positive cultures for E. coli Enterococcus and Aide from this right knee complex infection. Patient had the right knee effusion aspirated over the weekend. Orthopedics had evaluate this patient is essentially recommending right [id number] amputation has a follow-up with the infection has become complex with extension into the knee. I recommended tertiary care evaluation for further options as patient is currently not wanting amputation at this time. ID following and felt this could be treated with antibiotics may not need amputation. [facility] was contacted and felt this transfer was more of a patient mediated and they are bringing this to the record cutter and they are not able to accommodate this patient at this time due to capacity. Blood work today reveals a white blood cell count of 10.0, hemoglobin 8.0, platelet count of 454, sodium 132, BUN of 14, creatinine of 0.98, magnesium 1.6. Review of Systems Constitutional: Denied any fatigue denied any fever. Cardio vascular: denied any chest pain, palpitations Gastrointestinal: denied any nausea, vomiting, diarrhea Pulmonary: Denied any shortness of breath cough Neurologic denied any new focal deficits All inpatient medications were reviewed and appropriate changes in these medications as dictated in the interval history and assessment and plan. PHYSICAL EXAMINATION: GENERAL: The patient is alert and oriented x3, not in any acute distress. Well developed, well nourished. HEENT: Pupils are round and equally reacting to light. EOMI. No scleral icterus. No conjunctival pallor. Normocephalic, atraumatic. No pharyngeal erythema. No thyromegaly. CARDIOVASCULAR: S1 and S2 present. No murmurs, rubs, or gallops. PULMONARY: Chest is clear to auscultation, no wheezing or crackles. ABDOMEN: Soft, nontender, nondistended, normoactive bowel sounds. No palpable organomegaly. MUSCULOSKELETAL: No joint swelling or deformity. EXTREMITIES: No cyanosis, clubbing, or pedal edema. NEUROLOGICAL: Gross neurological examination did not reveal any focal deficits. SKIN: No rashes. Right leg dressing intact. Assessment and Plan -Complex right leg infection/soft tissue defects; and concern for septic right knee cultures showing enterococcus, E.Coli and Aide -Severe nonhealing ulcerated infected right foot and leg with 2 large different location lower part of the leg stage III and dorsalis part of the foot with stage II POD #4 washout and excisional debridement -Recent osteomyelitis of the left big toe post amputation -Diabetic foot: With nonhealing ulcerated area -Type 2 diabetes mellitus poorly controlled insulin dependent -Atrial fibrillation with RVR anticoagulated with eliquis. Paroxysmal atrial fibrillation currently in normal sinus rhythm -Coronary artery disease with prior cardiac stenting -Severe diabetic neuropathy -Hyponatremia hypovolemic improving with fluids -Gastroparesis and severe GERD -Hypertension GI prophylaxis DVT prophylaxis: Lovenox Full Code Plan Continue daily wound care with Dakin's wet to dry Continue antibiotics IV vancomycin, IV meropenem and IV fluconazole, ID following Orthopedics have signed up recommending rig AKA vs. tertiary care. Vascular following feels patient may not necessarily need amputation at this point and recommending tertiary care for further evaluation/second opinion from an advanced orthopedic surgeon. Stop IV normal saline Continue oral lasix Continue accuchecks ACHS and sliding scale insulin and levemir BID. Eliquis remains on hod patient continues on lovenox. Repeat blood work [facility] has denied patient transfer will follow up with patient regarding choices for transfer. Greater than 35 minutes has been spent on this patient in regards to chart review, examination and transfer process. The impression and plan of care has been dictated by Addis Cruz Nurse Practitioner as directed. Dr. Ernestine MD I have performed a history and physical examination and medical decision making of this patient, discussed the same with the dictator, and agree with the dictators assessment and plan as written, documented as a scribe. Based on total visit time, I have performed more than 50% of this visit. Objective - Vital Signs Vital signs: Vital Signs Temp 98.7 F 05/27/24 08:00 Pulse 74 05/27/24 08:00 Resp 16 05/27/24 08:00 BP 128/80 05/27/24 08:00 Pulse Ox 96 05/27/24 08:00 FiO2 Intake & Output 05/26/24 05/27/24 05/27/24 18:59 06:59 18:59 Intake Total 236 118 Output Total 1500 1775 Balance -1264 -1775 118 Intake: Oral 236 118 Output: Urine 1500 1775 Other: Voiding Method Urinal # Bowel Movements 0 - Labs CBC & Chem 7: 05/27/24 04:31 05/27/24 04:31 Labs: Abnormal Lab Results - Last 24 Hours (Table) 05/26/24 05/26/24 05/27/24 Range/Units 17:40 20:22 04:31 RBC (4.30-5.90) m/uL Hgb (13.0-17.5) gm/dL Hct (39.0-53.0) % MCHC (31.0-37.0) g/dL RDW (11.5-15.5) % Plt Count (150-450) k/uL Sodium 132 L (137-145) mmol/L Glucose 107 H (74-99) mg/dL POC Glucose (mg/dL) 202 H 146 H (70-110) mg/dL Calcium 7.9 L (8.4-10.2) mg/dL 05/27/24 05/27/24 Range/Units 04:31 12:40 RBC 3.14 L (4.30-5.90) m/uL Hgb 8.0 L D (13.0-17.5) gm/dL Hct 26.2 L (39.0-53.0) % MCHC 30.5 L (31.0-37.0) g/dL RDW 15.7 H (11.5-15.5) % Plt Count 454 H (150-450) k/uL Sodium (137-145) mmol/L Glucose (74-99) mg/dL POC Glucose (mg/dL) 171 H (70-110) mg/dL Calcium (8.4-10.2) mg/dL Assessment and Plan Time with Patient: Greater than 30
[2024-05-27] MEDS: LACTULOSE 20 GM/30 ML CUP PO ONE (14:26)
[2024-05-27 17:31] LABS: Glucose,Whole Blood 128 mg/dL (70-110)
[2024-05-27 19:46] LABS: Glucose,Whole Blood 165 mg/dL (70-110)
[2024-05-27] MEDS: DOCUSATE 100 MG CAP PO SCH (19:52)
--- NOTE | 2024-05-27 22:28 | P.PN ---
Subjective Progress Note Date: 05/27/24 Principal diagnosis: Reason for follow-up is right lower extremity and foot wound Patient is a 43-year-old male with a past medical history significant for diabetes mellitus hypertension hyperlipidemia coronary artery disease atrial fibrillation apparently has been dealing with the right lower extremity wound both to the right lower leg and foot area that he has for couple of weeks being admitted to hospital with worsening wound and concern for infection.Patient was taken to the OR last evening and this patient was status post sharp excisional debridement of the right leg concerning for necrotizing fasciitis and drainage of the abscess procedure completed on 05/22/2024 with repeat debridement this afternoon. On today's evaluation that is 05/27/2024, patient has been afebrile, patient is breathing comfortably and is currently on room air, patient denies having any significant cough no chest pain, patient denies nausea vomiting or diarrhea and no abdominal pain, P denies any worsening pain to the right lower extremity. Patient white count is 10.0, creatinine 0.88 Enterococcus is ampicillin sensitive Objective - Vital Signs Vital signs: Vital Signs Temp 98.7 F 05/27/24 08:00 Pulse 74 05/27/24 08:00 Resp 16 05/27/24 08:00 BP 128/80 05/27/24 08:00 Pulse Ox 96 05/27/24 08:00 FiO2 Intake & Output 05/26/24 05/27/24 05/27/24 18:59 06:59 18:59 Intake Total 236 118 Output Total 1500 1775 Balance -1264 -1775 118 Intake: Oral 236 118 Output: Urine 1500 1775 Other: Voiding Method Urinal # Bowel Movements 0 - Exam GENERAL DESCRIPTION: Middle-age male lying in bed in no distress RESPIRATORY SYSTEM: Unlabored breathing , decreased breath sounds at bases HEART: S1 S2 regular rate and rhythm , ABDOMEN: Soft , no tenderness EXTREMITIES: Right knee currently with no swelling or redness, right leg wound is currently dressed - Labs CBC & Chem 7: 05/27/24 04:31 05/27/24 04:31 Labs: Abnormal Lab Results - Last 24 Hours (Table) 05/26/24 05/26/24 05/26/24 Range/Units 12:25 17:40 20:22 POC Glucose (mg/dL) 232 H 202 H 146 H (70-110) mg/dL Microbiology - Last 24 Hours (Table) 05/24/24 16:48 Gram Stain - Preliminary Knee - Right Body Fluid Culture - Preliminary Enterococcus faecalis Assessment and Plan (1) Leg wound, right Current Visit: Yes Status: Acute Code(s): S81.801A - UNSPECIFIED OPEN WOUND, RIGHT LOWER LEG, INITIAL ENCOUNTER SNOMED Code(s): 56189040195463529 (2) Diabetic foot infection Current Visit: Yes Status: Acute Code(s): E11.628 - TYPE 2 DIABETES MELLITUS WITH OTHER SKIN COMPLICATIONS; L08.9 - LOCAL INFECTION OF THE SKIN AND SUBCUTANEOUS TISSUE, UNSP SNOMED Code(s): 401126838 (3) Diabetic foot ulcer Current Visit: No Status: Acute Code(s): E11.621 - TYPE 2 DIABETES MELLITUS WITH FOOT ULCER; L97.509 - NON-PRESSURE CHRONIC ULCER OTH PRT UNSP FOOT W UNSP SEVERITY SNOMED Code(s): 135734713 Plan: 1patient with a chronic nonhealing wound to the right lower extremity including both the leg and the foot area that has been there for couple of weeks ,patient did have extensive surgery debridement of the right lower extremity concerning for necrotizing fasciitis Ortho has been consulted with concern for possible involvement of the joint for which Ortho has aspirated the right knee which was cloudy with 5260 which is currently low for a septic joint however the cultures are now growing Enterococcus faecalis question of contamination as clinically not behaving as septic arthritis 3patient culture grew ESBL E. coli and Aide, and right knee culture with Enterococcus faecalis that is ampicillin sensitive 4patient to continue with h meropenem Diflucan, discontinue vancomycin 5Ortho and vascular surgery recommending transfer to acute care primary team is currently working on transfer to [facility] Patient question concern has been altered Dictation was produced using [employer] dictation software. please excuse any grammatical, word or spelling errors. Time with Patient: Less than 30
[2024-05-28 06:02] LABS: Glucose,Whole Blood 105 mg/dL (70-110)
[2024-05-28 08:43] LABS: Basophils # (A) 0.07 X 10*3/uL (0.00-0.10); Basophils % (A) 0.5 %; Eosinophils # (A) 0.17 X 10*3/uL (0.04-0.35); Eosinophils % (A) 1.3 %; HCT 25.3 % (39.6-50.0); HGB 8.1 g/dL (13.0-17.0); Lymphocytes # (A) 1.76 X 10*3/uL (0.90-5.00); MCV 81.4 FL (80.0-97.0); Mean Platelet Volume 9.5 FL (9.5-12.2); Monocytes % (A) 6.7 %; NRBC Per 100 WBC 0 X 10*3/uL (0.00-0.01); Neutrophils # (A) 10.57 X 10*3/uL (1.80-7.70); Neutrophils % (A) 78.1 %; Platelet Count 426 X 10*3/uL (140-440); RBC 3.11 X 10*6/uL (4.40-5.60); RDW 15.2 % (11.5-14.5); WBC 13.53 X 10*3/uL (4.50-10.00)
[2024-05-28] MEDS: FLUCONAZOLE 100 MG TAB PO SCH (09:17)
--- NOTE | 2024-05-28 10:51 | P.PN ---
Subjective Progress Note Date: 05/28/24 Principal diagnosis: Right lower extremity infection Patient seen and examined today as a follow-up. He appears to be resting comfortably. Apparently patient was not excepted at [facility] as a transfer. Patient has discussed with the primary medical team that he would like to continue IV antibiotic therapy and be discharged to extended-care facility for wound care and IV antibiotics without transfer to tertiary center for advanced orthopedic evaluation. Objective - Vital Signs Vital signs: Vital Signs Temp 98.0 F 05/28/24 08:04 Pulse 70 05/28/24 08:04 Resp 17 05/28/24 08:04 BP 128/80 05/28/24 08:04 Pulse Ox 95 05/28/24 08:04 FiO2 Intake & Output 05/27/24 05/28/24 05/28/24 18:59 06:59 18:59 Intake Total 118 560 240 Output Total 2 Balance 116 560 240 Intake: Oral 118 560 240 Output: Urine 2 Other: Voiding Method Urinal # Voids 100 # Bowel Movements 1 1 - Exam General appearance: The patient is alert, oriented, appears in no acute distress. HET: Head is normocephalic and atraumatic. Pupils are equal and reactive. Neck: Supple. Abdomen: Soft, nondistended. Extremities: Right lower extremity dressing changed. Lower extremity swelling. Dressing in place, clean dry and intact with Naun wrap. Neurological: No focal deficits. - Labs CBC & Chem 7: 05/28/24 04:22 05/27/24 04:31 Labs: Abnormal Lab Results - Last 24 Hours (Table) 05/27/24 05/27/24 05/27/24 Range/Units 04:31 04:31 12:40 WBC (4.50-10.00) X 10*3/uL RBC 3.14 L (4.30-5.90) m/uL Hgb 8.0 L D (13.0-17.5) gm/dL Hct 26.2 L (39.0-53.0) % MCH (27.0-32.0) pg MCHC 30.5 L (31.0-37.0) g/dL RDW 15.7 H (11.5-15.5) % Plt Count 454 H (150-450) k/uL Immature Gran # (0.00-0.04) X 10*3/uL Neutrophils # (1.80-7.70) X 10*3/uL Sodium 132 L (137-145) mmol/L Glucose 107 H (74-99) mg/dL POC Glucose (mg/dL) 171 H (70-110) mg/dL Calcium 7.9 L (8.4-10.2) mg/dL 05/27/24 05/27/24 05/28/24 Range/Units 17:29 19:45 04:22 WBC 13.53 H (4.50-10.00) X 10*3/uL RBC 3.11 L (4.30-5.90) m/uL Hgb 8.1 L (13.0-17.5) gm/dL Hct 25.3 L (39.0-53.0) % MCH 26.0 L (27.0-32.0) pg MCHC (31.0-37.0) g/dL RDW 15.2 H (11.5-15.5) % Plt Count (150-450) k/uL Immature Gran # 0.06 H (0.00-0.04) X 10*3/uL Neutrophils # 10.57 H (1.80-7.70) X 10*3/uL Sodium (137-145) mmol/L Glucose (74-99) mg/dL POC Glucose (mg/dL) 128 H 165 H (70-110) mg/dL Calcium (8.4-10.2) mg/dL Microbiology - Last 24 Hours (Table) 05/24/24 16:48 Gram Stain - Final Knee - Right Body Fluid Culture - Final Enterococcus faecalis Assessment and Plan Assessment: 1. Right lower extremity diabetic wound infection status post debridement and washout 2. Diabetes mellitus 3. Recent osteomyelitis left great toe status post amputation 4. Atrial fibrillation with RVR 5. Coronary artery disease 6. Peripheral neuropathy 7. Right septic knee Plan: 1. Continue antibiotics per infectious disease 2. Daily dressing change with Dakin's wet-to-dry 3. Wound care on consultation, will have them reevaluate for wound VAC 4. Diet as tolerated 5. Right lower extremity weightbearing as tolerated 6. Orthopedic surgery was consulted, they recommended [id number] amputation versus transfer to tertiary center for septic knee, complex case. Discussed with patient recommendations from orthopedic surgeon. Patient does not want [id number] amputation at this time, therefore recommendation from orthopedic surgeon is transfer to tertiary center for advanced orthopedic jean claude luation. Transfer was attempted to [facility] who had declined accepting patient. Apparently patient would like to continue with IV antibiotics for the time being and be discharged to inpatient rehab facility for wound care and IV antibiotics. However case was discussed with orthopedic dawson rgeon from [facility] by Dr. Wright and orthopedics believes that patient would benefit from further orthopedic evaluation and possible washout. Patient is willing to transfer to [facility] needing higher level of care from orthopedic surgery. The impression and plan of care has been dictated as directed. Dr. Matute I performed a history and examination of this patient, discussed the same with the dictator. I agree with the dictator's note ,documented as a scribe. Any additional findings or plans will be noted.
--- NOTE | 2024-05-28 12:14 | P.PN ---
Subjective Progress Note Date: 05/28/24 This is a 43-year-old patient who is following in the wound care center for nonhealing ulceration to the right dorsal foot right medial calf and left great toe amputation site. Patient was seen on Monday and directed to go to the emergency room due to him feeling unwell a new ulceration to the right medial calf superior to the previous ulceration with significant necrotic tissue noted. Wound care plan was for a surgical debridement with application of a negative pressure wound VAC in outpatient setting however due to the patient's health and comorbidities he was instructed to go to the emergency department for evaluation. Patient was agreeableOriginal cause of wound was Gradually Appe ared. The date acquired was: 04/08/2024. The wound has been in treatment 3 weeks. The wound is currently classified as a Unable to visualize wound bed wound with etiologies of Diabetic Wound/Ulcer of the Lower Extremity and Necrotizing Infection and is located on the Right,Dorsal Foot. The wound measures 3.1cm length x 4.9cm width x 1cm depth; 11.93cm^2 area and 11.93cm^3 volume. There is bone, joint, muscle, tendon, Fat Layer (Subcutaneous Tissue), and fascia exposed. There is no tunneling or undermining noted. There is a medium amount of serosanguineous drainage noted. The wound margin is distinct with the outline attached to the wound base. There is no granulation within the wound bed. There is a large (67-100%) amount of necrotic tissue within the wound bed including Eschar. The periwound skin appearance exhibited: Scarring, Dry/Scaly, Erythema. The periwound skin appearance did not exhibit: Callus, Crepitus, Excoriation, Induration, Rash, Maceration, Atrophie Aretha, Cyanosis, Ecchymosis, Hemosiderin Staining, Mottled, Pallor, Rubor. The surrounding wound skin color is noted with erythema which is circumferential. Periwound temperature was noted as No Abnormality. Original cause of wound was Gradually Appeared. The date acquired was: 04/01/2024. The wound has been in treatment 3 weeks. The wound is currently classified as a Unable to visualize wound bed wound with etiologies of Diabetic Wound/Ulcer of the Lower Extremity and Necrotizing Infection and is located on the Right,Medial Lower Leg. The wound measures 10.1cm length x 9.6cm width x 1cm depth; 76.152cm^2 area and 76.152cm^3 volume. There is muscle, Fat Layer (Subcutaneous Tissue), and fascia exposed. There is no tunneling or undermining noted. There is a large amount of serosanguineous drainage noted. The wound margin is distinct with the outline attached to the wound base. There is no granulation within the wound bed. There is a large (67-100%) amount of necrotic tissue within the wound bed including Eschar. The periwound skin appearance exhibited: Scarring, Erythema. The periwound skin appearance did not exhibit: Callus, Crepitus, Excoriation, Induration, Rash, Dry/Scaly, Maceration, Atrophie Snowslip, Cyanosis, Ecchymosis, Hemosiderin Staining, Mottled, Pallor, Rubor. The surrounding wound skin color is noted with erythema which is circumferential. Periwound temperature was noted as No Abnormality. Original cause of wound was Surgical Injury. The date acquired was: 04/01/2024. The wound has been in treatment 3 weeks. The wound is currently classified as a Grade 4 wound with etiologies of Diabetic Wound/Ulcer of the Lower Extremity and Dehisced Wound and is located on the Left Amputation Site - Toe. The wound measures 0.6cm length x 0.3cm width x 1cm depth; 0.141cm^2 area and 0.141cm^3 volume. There is Fat Layer (Subcutaneous Tissue) exposed. There is no tunneling or undermining noted. There is a medium amount of serosanguineous drainage noted. The wound margin is indistinct and nonvisible. There is large (67-100%) red granulation within the wound bed. There is a small (1-33%) amount of necrotic tissue within the wound bed. The periwound skin appearance exhibited: Scarring, Erythema. The periwound skin appearance did not exhibit: Callus, Crepitus, Excoriation, Induration, Rash, Dry/Scaly, Maceration, Atrophie Snowslip, Cyanosis, Ecchymosis, Hemosiderin Staining, Mottled, Pallor, Rubor. The surrounding wound skin color is noted with erythema which is circumferential. Periwound temperature was noted as No Abnormality. 05/28/2024: Consulted To reevaluate nonhealing ulceration to the right calf right knee and right dorsal foot. Ulceration shows granulation throughout the wound bed. Tunneling noted to the right calf ulceration at 9:00 at 5 cm's. Patient wound bed is appropriate for a negative pressure wound VAC. Discussed with patient in great detail utilizing a negative pressure wound VAC. Review Of Systems: Constitutional: No fever, no chills, no night sweats. No weight change. No weakness, fatigue or lethargy. No daytime sleepiness. Integumentary:reports wounds, no lesions. No rash or pruritus. No unusual bruising. No change in hair or nails. Physical exam: General Appearance: Alert, cooperative, no distress, appears stated age. Skin: See HPI all other Skin color, texture, tugor normal, no rashes or lesions. Neurologic: Alert oriented x3 Assessment: 1.Non-pressure chronic ulcer of other part of left foot with bone involvement without evidence of necrosis 2. Non-pressure chronic ulcer of other part of right foot with fat layer exposed 3. Non-pressure chronic ulcer of other part of right lower leg with fat layer exposed 4. Type 2 diabetes mellitus with foot ulcer 5. Type 2 diabetes mellitus with other skin ulcer 6. Lymphedema, not elsewhere classified Plan: 1. Right calf and right knee ulcerations apply negative pressure wound VAC at 150 mmHg with black foam changing Monday. Right dorsal foot we will utilize Santyl at this time until seen in the wound care center. Next appointment in the wound care center will be June 03 at 9:15. Thank you for the consultation any questions please contact the wound care cent er DNP note has been reviewed and discussed with Dr. Schofield and the impression and plan of care has been directed as dictated. Objective - Vital Signs Vital signs: Vital Signs Temp 98.0 F 05/28/24 08:04 Pulse 70 05/28/24 08:04 Resp 17 05/28/24 08:04 BP 128/80 05/28/24 08:04 Pulse Ox 95 05/28/24 08:04 FiO2 Intake & Output 05/27/24 05/28/24 05/28/24 18:59 06:59 18:59 Intake Total 118 560 240 Output Total 2 Balance 116 560 240 Intake: Oral 118 560 240 Output: Urine 2 Other: Voiding Method Urinal # Voids 100 # Bowel Movements 1 1 - Labs CBC & Chem 7: 05/28/24 04:22 05/27/24 04:31 Labs: Abnormal Lab Results - Last 24 Hours (Table) 05/27/24 05/27/24 05/27/24 Range/Units 12:40 17:29 19:45 WBC (4.50-10.00) X 10*3/uL RBC (4.40-5.60) X 10*6/uL Hgb (13.0-17.0) g/dL Hct (39.6-50.0) % MCH (27.0-32.0) pg RDW (11.5-14.5) % Immature Gran # (0.00-0.04) X 10*3/uL Neutrophils # (1.80-7.70) X 10*3/uL POC Glucose (mg/dL) 171 H 128 H 165 H (70-110) mg/dL 05/28/24 Range/Units 04:22 WBC 13.53 H (4.50-10.00) X 10*3/uL RBC 3.11 L (4.40-5.60) X 10*6/uL Hgb 8.1 L (13.0-17.0) g/dL Hct 25.3 L (39.6-50.0) % MCH 26.0 L (27.0-32.0) pg RDW 15.2 H (11.5-14.5) % Immature Gran # 0.06 H (0.00-0.04) X 10*3/uL Neutrophils # 10.57 H (1.80-7.70) X 10*3/uL POC Glucose (mg/dL) (70-110) mg/dL Microbiology - Last 24 Hours (Table) 05/24/24 16:48 Gram Stain - Final Knee - Right Body Fluid Culture - Final Enterococcus faecalis Assessment and Plan (1) Non-pressure chronic ulcer of other part of left foot with bone involvement without evidence of necrosis Current Visit: Yes Status: Acute Code(s): L97.526 - NON-PRS CHR ULC OTH PRT L FOOT WITH BNE INVL W/O EVD OF NECR SNOMED Code(s): 92361061429361609 (2) Non-pressure chronic ulcer of other part of right foot with fat layer exposed Current Visit: Yes Status: Acute Code(s): L97.512 - NON-PRS CHRONIC ULCER OTH PRT RIGHT FOOT W FAT LAYER EXPOSED SNOMED Code(s): 42879344636536160 (3) Non-pressure chronic ulcer of other part of right lower leg with fat layer exposed Current Visit: Yes Status: Acute Code(s): L97.812 - NON-PRS CHRONIC ULCER OTH PRT R LOW LEG W FAT LAYER EXPOSED SNOMED Code(s): 86231815605192059 (4) Type 2 diabetes mellitus with foot ulcer Current Visit: Yes Status: Acute Code(s): E11.621 - TYPE 2 DIABETES MELLITUS WITH FOOT ULCER; L97.509 - NON-PRESSURE CHRONIC ULCER OTH PRT UNSP FOOT W UNSP SEVERITY SNOMED Code(s): 4848094879301 (5) Type 2 diabetes mellitus with other skin ulcer Current Visit: Yes Status: Acute Code(s): E11.622 - TYPE 2 DIABETES MELLITUS WITH OTHER SKIN ULCER; L98.499 - NON-PRESSURE CHRONIC ULCER OF SKIN OF SITES W UNSP SEVERITY SNOMED Code(s): 313059944262939 (6) Lymphedema, not elsewhere classified Current Visit: Yes Status: Acute Code(s): I89.0 - LYMPHEDEMA, NOT ELSEWHERE CLASSIFIED SNOMED Code(s): 219413147
[2024-05-28 12:17] VITALS: TEMP 98.6
[2024-05-28 12:20] LABS: Glucose,Whole Blood 132 mg/dL (70-110)
[2024-05-28 14:02] VITALS: BP 98/64; PULSE 75; RESP 16
--- NOTE | 2024-05-28 14:29 | P.PN ---
Subjective Progress Note Date: 05/28/24 Principal diagnosis: Reason for follow-up is right lower extremity and foot wound Patient is a 43-year-old male with a past medical history significant for diabetes mellitus hypertension hyperlipidemia coronary artery disease atrial fibrillation apparently has been dealing with the right lower extremity wound both to the right lower leg and foot area that he has for couple of weeks being admitted to hospital with worsening wound and concern for infection.Patient was taken to the OR last evening and this patient was status post sharp excisional debridement of the right leg concerning for necrotizing fasciitis and drainage of the abscess procedure completed on 05/22/2024 with repeat debridement this afternoon. On today's evaluation that is 05/28/2024, Patient is afebrile this morning patient denies having any chest pain shortness of breath or cough, the patient is currently on room air, patient denies any abdominal pain no diarrhea no nausea no vomiting patient denies any worsening pain to the right lower extremity. Patient white count is 13.53 creatinine 0.98 Objective - Vital Signs Vital signs: Vital Signs Temp 98.0 F 05/28/24 08:04 Pulse 70 05/28/24 08:04 Resp 17 05/28/24 08:04 BP 128/80 05/28/24 08:04 Pulse Ox 95 05/28/24 08:04 FiO2 Intake & Output 05/27/24 05/28/24 05/28/24 18:59 06:59 18:59 Intake Total 118 560 240 Output Total 2 Balance 116 560 240 Intake: Oral 118 560 240 Output: Urine 2 Other: Voiding Method Urinal # Voids 100 # Bowel Movements 1 1 - Exam GENERAL DESCRIPTION: Middle-age male lying in bed in no distress RESPIRATORY SYSTEM: Unlabored breathing , decreased breath sounds at bases HEART: S1 S2 regular rate and rhythm , ABDOMEN: Soft , no tenderness EXTREMITIES: Right knee currently dressed with no swelling or redness, - Labs CBC & Chem 7: 05/28/24 04:22 05/27/24 04:31 Labs: Abnormal Lab Results - Last 24 Hours (Table) 05/27/24 05/27/24 05/27/24 Range/Units 12:40 17:29 19:45 WBC (4.50-10.00) X 10*3/uL RBC (4.40-5.60) X 10*6/uL Hgb (13.0-17.0) g/dL Hct (39.6-50.0) % MCH (27.0-32.0) pg RDW (11.5-14.5) % Immature Gran # (0.00-0.04) X 10*3/uL Neutrophils # (1.80-7.70) X 10*3/uL POC Glucose (mg/dL) 171 H 128 H 165 H (70-110) mg/dL 05/28/24 Range/Units 04:22 WBC 13.53 H (4.50-10.00) X 10*3/uL RBC 3.11 L (4.40-5.60) X 10*6/uL Hgb 8.1 L (13.0-17.0) g/dL Hct 25.3 L (39.6-50.0) % MCH 26.0 L (27.0-32.0) pg RDW 15.2 H (11.5-14.5) % Immature Gran # 0.06 H (0.00-0.04) X 10*3/uL Neutrophils # 10.57 H (1.80-7.70) X 10*3/uL POC Glucose (mg/dL) (70-110) mg/dL Microbiology - Last 24 Hours (Table) 05/24/24 16:48 Gram Stain - Final Knee - Right Body Fluid Culture - Final Enterococcus faecalis Assessment and Plan (1) Leg wound, right Current Visit: Yes Status: Acute Code(s): S81.801A - UNSPECIFIED OPEN WOUND, RIGHT LOWER LEG, INITIAL ENCOUNTER SNOMED Code(s): 30906844735347712 (2) Diabetic foot infection Current Visit: Yes Status: Acute Code(s): E11.628 - TYPE 2 DIABETES MELLITUS WITH OTHER SKIN COMPLICATIONS; L08.9 - LOCAL INFECTION OF THE SKIN AND SUBCU TANEOUS TISSUE, UNSP SNOMED Code(s): 941691245 (3) Diabetic foot ulcer Current Visit: No Status: Acute Code(s): E11.621 - TYPE 2 DIABETES MELLITUS WITH FOOT ULCER; L97.509 - NON-PRESSURE CHRONIC ULCER OTH PRT UNSP FOOT W UNSP SEVERITY SNOMED Code(s): 991039220 Plan: 1patient with a chronic nonhealing wound to the right lower extremity including both the leg and the foot area that has been there for couple of weeks ,patient did have extensive surgery debridement of the right lower extremity concerning for necrotizing fasciitis Ortho has been consulted with concern for possible involvement of the joint for which Ortho has aspirated the right knee which was cloudy with 5260 which is currently low for a septic joint however the cultures are now growing Enterococcus faecalis question of contamination as clinically not behaving as septic arthritis 3patient culture grew ESBL E. coli and Aide, and right knee culture with [facility]ococcus faecalis [facility] for second opinion patient seem to be okay with it and wants to try an open wound care and IV antibiotics, PICC line has been ordered 5plan is for 6-week course of Invanz 1 g daily and oral Diflucan wound care is following for the wound care Dictation was produced using [employer] dictation software. please excuse any grammatical, word or spelling errors. Time with Patient: Less than 30
[2024-05-28] MEDS: COLLAGENASE 250 UNIT/GM OINTMENT 30 GM TUBE TOPICAL SCH (14:56)
--- NOTE | 2024-05-28 15:11 | P.DS ---
Providers Date of admission: 05/20/24 13:51 Attending physician: Juancho Parada Consults: 05/20/24 12:35 Consult Physician Routine Consulting Provider: Jermaine Louis Consult Reason/Comments: RLE chronic wound, sepsis Do you want consulting provider notified?: Yes, Notify in am 05/20/24 14:08 Consult Physician Stat Consulting Provider: Ramo Matute Consult Reason/Comments: RLE wound, decreased cap refill Do you want consulting provider notified?: Yes, Notify in am 05/24/24 12:29 Consult Physician Urgent Consulting Provider: Laith Smart Consult Reason/Comments: Evaluate right knee, RLE infection s/p debridement Do you want consulting provider notified?: Yes Primary care physician: Juancho Parada [place] [facility] Course: Final Diagnosis -Complex right leg infection/soft tissue defects; and concern for septic right knee cultures showing enterococcus, E.Coli and Aide -Severe nonhealing ulcerated infected right foot and leg with 2 large different location lower part of the leg stage III and dorsalis part of the foot with stage II - now POD #5 washout and excisional debridement -Recent osteomyelitis of the left big toe post amputation -Diabetic foot: With nonhealing ulcerated area -Type 2 diabetes mellitus poorly controlled insulin dependent -Atrial fibrillation with RVR anticoagulated with eliquis. Paroxysmal atrial fibrillation currently in normal sinus rhythm -Coronary artery disease with prior cardiac stenting -Severe diabetic neuropathy -Hyponatremia hypovolemic improving with fluids -Gastroparesis and severe GERD -Hypertension Discharge Disposition Patient is stable for transfer to [facility] for further evaluation and treatment of this complex leg wound of the right sided. Patient will continue IV antibiotics and currently on IV meropenem. Wound care has re-evaluated the patient today and recommending to apply negative pressure wound VAC with black foam to the right lower extremity wound at 150 mmHg continuous pressure to change every Monday. Additionally for the right foot ulcer/wound on the dorsum patient should apply Santyl saline moist gauze dry gauze roll gauze and secure with paper tape and to change daily. Hospital Course 43-year-old with active medical history of severely uncontrolled type 2 diabetes on insulin, hypertension, hyperlipidemia, atrial fibrillation, chronic neuropathy, history of ESBL with infected right big toe with osteomyelitis post amputation 3 weeks ago in [facility], history of gastrointestinal bleed which patient was transferred recently to [facility] for few days and found to have an osteomyelitis of the left big toe and that having amputation. Had follow-up in the office with his PCP Dr. Parada, found to have a significantly infected right leg medial aspect of the right lower part of the leg along with the posterior area of the foot blister was open and became a stage II ulcer large area. The wound clinic sent the patient over to the hospital for IV antibiotics. Culture was done which shows E. coli and Aide albicans. Patient was admitted to the hospital to consult placed to orthopedics as well as vascular surgery and infectious disease. Wound care was also consulted. 2023 patient underwent extensive right lower extremity sharp excisional debridement as there was purulent Drainage and tracking at the wound site. A follow up CT scan of the leg reveals suspected postsurgical fasciotomy with packing there is diffuse soft tissue swelling throughout the right extremity. There remains a small fluid collection just posterior to the knee. No evidence of fracture and no evidence of osseous erosion to suggest osteomyelitis. 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 Patient went back on May 23, 2024 for debridement and washout of the right lower extremity wound with sharp excisional debridement of the right posterior calf wound 32 x 15 x 3.5 cm to muscle. Also of a right thigh wound 7 x 3 x 3 cm to muscle. Has been continue with local wound care with Dakin's soaks. Following day on May 24, 2024 orthopedics aspirated 36 mL of cloudy joint fluid from the right knee effusion. Cultures are showing Enterococcus faecalis. He is currently continued on IV meropenem and oral fluconazole. Due to the complex nature of this wound and the concern for impending septic knee orthopedics felt there was nothing further to offer at this facility. After discussion among care team it was decided amputation vs. tertiary care for further evaluation and treatment of this complex wound. Vascular surgery has accepted this patient at [facility] and patient is currently pending bed placement. Recent blood work reveals a white blood cell count of 13.53, hemoglobin 11.1, sodium of 132, BUN of 14, creatinine 0.98, magnesium 1.6. Patient is afebrile temperature 98.6, heart rate of 75 normal sinus rhythm, blood pressure 100/64 at 97% on room air. Please see medication reconciliation for a list of current medications. Thank you for allowing us to participate in the care of this patient. The impression and plan of care has been dictated by Addis Cruz, Nurse Practitioner as directed. Dr. Ernestine MD I have performed a history and physical examination and medical decision making of this patient, discussed the same with the dictator, and agree with the dictators assessment and plan as written, documented as a scribe. Based on total visit time, I have performed more than 50% of this visit. Patient Condition at Discharge: Fair Plan - Discharge Summary New Discharge Prescriptions: No Action carvediloL [Coreg] 25 mg PO BID amLODIPine [Norvasc] 5 mg PO DAILY Atorvastatin [Lipitor] 80 mg PO DAILY INSULIN ASPART (NovoLOG) [NovoLOG (formulary)] 15 unit SQ TID-W/MEALS Albuterol Sulfate [Ventolin HFA] 2 puff INHALATION RT-Q4H PRN PRN Reason: Shortness Of Breath Nitroglycerin Sl Tabs [Nitrostat] 0.4 mg SL Q5M PRN PRN Reason: Chest Pain HYDROcodone/APAP 5-325MG [Zuni 5-325] 1 tab PO Q6H PRN PRN Reason: Pain Sucralfate [Carafate] 1 gm PO ACHS Apixaban [Eliquis] 5 mg PO BID Pantoprazole [Protonix] 40 mg PO BID Insulin Detemir (Levemir) [Levemir] 15 unit SQ BID Aspirin 81 mg PO DAILY Furosemide [Lasix] 40 mg PO DAILY Discharge Medication List Atorvastatin [Lipitor] 80 mg PO DAILY 10/12/22 [History] Pantoprazole [Protonix] 40 mg PO BID 10/12/22 [History] amLODIPine [Norvasc] 5 mg PO DAILY 10/12/22 [History] carvediloL [Coreg] 25 mg PO BID 10/12/22 [History] Albuterol Sulfate [Ventolin HFA] 2 puff INHALATION RT-Q4H PRN 05/15/24 [History] Apixaban [Eliquis] 5 mg PO BID 05/15/24 [History] Aspirin 81 mg PO DAILY 05/15/24 [History] HYDROcodone/APAP 5-325MG [Zuni 5-325] 1 tab PO Q6H PRN 05/15/24 [History] INSULIN ASPART (NovoLOG) [NovoLOG (formulary)] 15 unit SQ TID-W/MEALS 05/15/24 [History] Insulin Detemir (Levemir) [Levemir] 15 unit SQ BID 05/15/24 [History] Nitroglycerin Sl Tabs [Nitrostat] 0.4 mg SL Q5M PRN 05/15/24 [History] Sucralfate [Carafate] 1 gm PO ACHS 05/15/24 [History] Furosemide [Lasix] 40 mg PO DAILY 05/20/24 [History] Follow up Appointment(s)/Referral(s): Juancho Parada MD [Primary Care Provider] - 1-2 days [facility] [NON-STAFF] - 05/27/24 9:00 am
[2024-05-28 16:11] LABS: Blood Urea Nitrogen 12.7 mg/dL (9.0-27.0); Calcium 8.1 mg/dL (8.7-10.3); Carbon Dioxide 23.4 mmol/L (21.6-31.8); Chloride 102 mmol/L (96-109); Glucose 118 mg/dL (70-110); Potassium 3.6 mmol/L (3.5-5.5); Sodium 135 mmol/L (135-145)
== END 2024-05-28 17:20 | disposition short-term general hospital (02) | DRG 622 ==
LOC: EC 09:56 → 5NMEDONC 13:51 → 1SOBS 15:16 → 6NMEDSUR 05-21 05:50
PROVIDERS: ADMIT Internal Medicine Geriatric Medicine; ATTEND Internal Medicine Geriatric Medicine
PROC: 0KBS0ZZ Excision of Right Lower Leg Muscle, Open Approach (ICD-10-PCS; 2024-05-22)
PROC: 0KBQ0ZZ Excision of Right Upper Leg Muscle, Open Approach (ICD-10-PCS; 2024-05-23)
PROC: 0JBN0ZZ Excision of Right Lower Leg Subcutaneous Tissue and Fascia, Open Approach (ICD-10-PCS; principal; 2024-05-23 07:30)
PROC: 0S9C3ZZ Drainage of Right Knee Joint, Percutaneous Approach (ICD-10-PCS; 2024-05-24)
DX: E11.621 Type 2 diabetes mellitus with foot ulcer (principal); A41.9 Sepsis, unspecified organism; E87.1 Hypo-osmolality and hyponatremia; L03.116 Cellulitis of left lower limb; I48.20 Chronic atrial fibrillation, unspecified; I50.22 Chronic systolic (congestive) heart failure; L02.415 Cutaneous abscess of right lower limb; L97.219 Non-pressure chronic ulcer of right calf with unspecified severity; L97.812 Non-pressure chronic ulcer of other part of right lower leg with fat layer exposed; L97.526 Non-pressure chronic ulcer of other part of left foot with bone involvement without evidence of necrosis; Z16.12 Extended spectrum beta lactamase (ESBL) resistance; T81.31XA Disruption of external operation (surgical) wound, not elsewhere classified, initial encounter; E87.8 Other disorders of electrolyte and fluid balance, not elsewhere classified; K31.84 Gastroparesis; E78.5 Hyperlipidemia, unspecified; E11.43 Type 2 diabetes mellitus with diabetic autonomic (poly)neuropathy; I10 Essential (primary) hypertension; K21.9 Gastro-esophageal reflux disease without esophagitis; L97.509 Non-pressure chronic ulcer of other part of unspecified foot with unspecified severity; E11.51 Type 2 diabetes mellitus with diabetic peripheral angiopathy without gangrene; E11.42 Type 2 diabetes mellitus with diabetic polyneuropathy; E11.628 Type 2 diabetes mellitus with other skin complications; E11.622 Type 2 diabetes mellitus with other skin ulcer; E86.1 Hypovolemia; F32.A Depression, unspecified; I11.0 Hypertensive heart disease with heart failure; B37.2 Candidiasis of skin and nail; I25.10 Atherosclerotic heart disease of native coronary artery without angina pectoris; I25.2 Old myocardial infarction; I25.5 Ischemic cardiomyopathy; I48.0 Paroxysmal atrial fibrillation; I89.0 Lymphedema, not elsewhere classified; L97.512 Non-pressure chronic ulcer of other part of right foot with fat layer exposed; E11.65 Type 2 diabetes mellitus with hyperglycemia; Z79.01 Long term (current) use of anticoagulants; Z79.82 Long term (current) use of aspirin; Z79.4 Long term (current) use of insulin; Z79.84 Long term (current) use of oral hypoglycemic drugs; Z79.899 Other long term (current) drug therapy; Z82.49 Family history of ischemic heart disease and other diseases of the circulatory system; Z86.19 Personal history of other infectious and parasitic diseases; Z89.412 Acquired absence of left great toe; Z95.5 Presence of coronary angioplasty implant and graft; Z91.013 Allergy to seafood; B95.2 Enterococcus as the cause of diseases classified elsewhere; B96.20 Unspecified Escherichia coli [E. coli] as the cause of diseases classified elsewhere; Y84.8 Other medical procedures as the cause of abnormal reaction of the patient, or of later complication, without mention of misadventure at the time of the procedure
CPT/HCPCS: 36415; 80048; 80053; 80202; 82565; 83036; 83605; 83735; 84145; 85025; 85027; 85652; 86140; 86850; 86900; 86901; 87040; 87070; 87075; 87077; 87186; 87205; 89050; 93005; 96361; 96365; 96366; 99285

== ENCOUNTER 2024-09-18 08:47 | Inpatient (IN) | payer BC ==
--- NOTE | 2024-09-18 10:50 | XR ---
EXAMINATION TYPE: XR chest 2V DATE OF EXAM: 09/18/2024 10:39 AM COMPARISON: 05/15/2024 CLINICAL INDICATION: Male, 43 years old with history of sob, TECHNIQUE: XR chest 2V view(s) obtained. FINDINGS: The heart size is mildly prominent. The pulmonary vasculature is normal. The lungs are clear. IMPRESSION: 1. No acute pulmonary process. 2. Cardiomegaly [facility], , 09/18/2024 10:47 AM
--- NOTE | 2024-09-18 10:53 | XR ---
EXAMINATION TYPE: XR tibia fibula RT DATE OF EXAM: 09/18/2024 10:39 AM COMPARISON: 05/24/2024 knee CLINICAL INDICATION: Male, 43 years old with history of infection, pain TECHNIQUE: 2 view(s) obtained. FINDINGS: No acute osseous abnormality radiographically apparent. No acute fractures are identified. No suspici ous cortical erosions are evident. There appears to be deep soft tissue changes within the distal medial leg. IMPRESSION: 1. No acute osseous abnormality radiographically apparent. 2. Soft tissue changes medial right foreleg [facility], , 09/18/2024 10:51 AM
[2024-09-18 11:12] LABS: Anisocytosis Slight; Basophils # (A) 0.1 k/uL (0-0.2); Basophils % (A) 1 %; Eosinophils # (A) 0.3 k/uL (0-0.7); Eosinophils % (A) 4 %; HCT 32.3 % (39.0-53.0); Hypochromasia Marked; Lymphocytes # (A) 1.2 k/uL (1.0-4.8); Lymphocytes % (A) 16 %; MCH 21.4 pg (25.0-35.0); MCHC 30.9 g/dL (31.0-37.0); MCV 69.2 fL (80.0-100.0); Mean Platelet Volume 6.5; Microcytosis Marked; Monocytes # (A) 0.6 k/uL (0-1.0); Monocytes % (A) 8 %; Neutrophils # (A) 5.1 k/uL (1.3-7.7); Neutrophils % (A) 69 %; Platelet Count 366 k/uL (150-450); Poikilocytosis Slight; RBC 4.67 m/uL (4.30-5.90); RDW 16.8 % (11.5-15.5); WBC 7.4 k/uL (3.8-10.6)
[2024-09-18 11:23] LABS: ALT 12 U/L (4-49); AST 22 U/L (17-59); African American GFR (CKD) >90 (>60 ml/min/1.73 sqM); Alkaline Phosphatase 382 U/L (38-126); Anion Gap 7 mmol/L; Blood Urea Nitrogen 18 mg/dL (9-20); Calcium 8.9 mg/dL (8.4-10.2); Carbon Dioxide 25 mmol/L (22-30); Chloride 98 mmol/L (98-107); Glucose 300 mg/dL (74-99); Magnesium 1.6 mg/dL (1.6-2.3); Non-African American GFR(CKD) >90 (>60 ml/min/1.73 sqM); Potassium 5.2 mmol/L (3.5-5.1); Sodium 130 mmol/L (137-145); Total Bilirubin 0.8 mg/dL (0.2-1.3); Total Protein 6.6 g/dL (6.3-8.2)
[2024-09-18 11:24] LABS: INR 1.2 (<1.2); Prothrombin Time 12.7 sec (10.0-12.5)
[2024-09-18 11:31] LABS: NT-Pro-B-Type Natriuretic Pept 4440 pg/mL
[2024-09-18] MEDS ORDERED: VANCOMYCIN IV PER PHARMACY 1 EACH MISC MISCELLANE PRN (12:02)
[2024-09-18] MEDS ORDERED: NALOXONE 0.4 MG/ML 1 ML VIAL IV PRN (12:07)
[2024-09-18] MEDS ORDERED: ACETAMINOPHEN TAB 325 MG TAB PO PRN (12:07)
--- NOTE | 2024-09-18 12:07 | ED ---
General Adult HPI - General Chief complaint: Recheck/Abnormal Lab/Rx Stated complaint: General weakness, right leg wound Time Seen by Provider: 09/18/24 09:01 Source: patient ([id number]), RN notes reviewed Mode of arrival: wheelchair Limitations: no limitations - History of Present Illness Initial comments: 43-year-old male presents emergency department from wound center chief complaint of increasing weakness, right leg wound. Patient states he has a wound VAC on he had recent culture showing 3 different organisms. Patient states he had his PICC line approximate 3 to 4 weeks ago. Patient states he has had no fever but has had increasing weakness, leg swelling and discomfort to the right leg. Patient states that this started from peripheral swelling from CHF. He states he can barely get around they advised him on the emergency department for poss ible rehab, placement. - Related Data Home Medications Medication Instructions Recorded Confirmed Atorvastatin [Lipitor] 80 mg PO DAILY 10/12/22 09/18/24 carvediloL [Coreg] 25 mg PO BID 10/12/22 09/18/24 Apixaban [Eliquis] 5 mg PO BID 05/15/24 09/18/24 Aspirin 81 mg PO DAILY 05/15/24 09/18/24 INSULIN ASPART (NovoLOG) [NovoLOG 15 unit SQ HS 05/15/24 09/18/24 (formulary)] Insulin Detemir (Levemir) [Levemir] 15 unit SQ BID 05/15/24 09/18/24 Nitroglycerin Sl Tabs [Nitrostat] 0.4 mg SL Q5M PRN 05/15/24 09/18/24 Ciprofloxacin HCl [Cipro] 750 mg PO Q12H 09/18/24 09/18/24 Sulfamethox-Tmp 800-160Mg [Bactrim 1 tab PO BID 09/18/24 09/18/24 DS 800-160 mg] Allergies Allergy/AdvReac Type Severity Reaction Status Date / Time Fish Containing Products AdvReac Unknown Verified 09/18/24 11:35 [Fish] Review of Systems ROS Statement: Those systems with pertinent positive or pertinent negative responses have been documented in the HPI. ROS Other: All systems not noted in ROS Statement are negative. Past Medical History Past Medical History: Atrial Fibrillation, Coronary Artery Disease (CAD), D iabetes Mellitus, Hyperlipidemia, Hypertension Additional Past Medical History / Comment(s): neuropathy Last Myocardial Infarction Date:: 11/20/2020 History of Any Multi-Drug Resistant Organisms: ESBL, MRSA Date of last positivie culture/infection: 08/26/24-MRSA; 03/03/21-ESBL MDRO Source:: MRSA-rt leg; ESBL-Left Foot Past Surgical History: Back Surgery, Heart Catheterization With Stent, Hernia Repair Additional Past Surgical History / Comment(s): 4 cardiac stents 11/20/2020, 1 cardiac stent 11/23/2020 Past Anesthesia/Blood Transfusion Reactions: No Reported Reaction Date of Last Stent Placement:: 2020 Past Psychological History: Depression Smoking Status: Never smoker Past Alcohol Use History: None Reported Past Drug Use History: None Reported - Past Family History Mother Family Medical History: Diabetes Mellitus Father Family Medical History: Congestive Heart Failure (CHF), Coronary Artery Disease (CAD), Diabetes Mellitus, Hypertension, Myocardial Infarction ([place]) Additional Family Medical History / Comment(s): father 2019 from [place] General Exam Limitations: no limitations General appearance: alert, in no apparent distress Head exam: Present: atraumatic, normocephalic, normal inspection Respiratory exam: Present: normal lung sounds bilaterally. Absent: respiratory distress, wheezes, rales, rhonchi, stridor Cardiovascular Exam: Present: regular rate, normal rhythm, normal heart sounds. Absent: systolic murmur, diastolic murmur, rubs, gallop, clicks Extremities exam: Present: other (Extremity significant swelling, wound VAC in place, surrounding erythema) Course Vital Signs 09/18/24 09:14 Temperature 97.9 F Pulse Rate 93 Respiratory 20 Rate Blood Pressure 170/118 O2 Sat by Pulse 95 Oximetry Medical Decision Making - Medical Decision Making Was pt. sent in by a medical professional or institution (, PA, PLACEMENT INTERVIEWER, urgent care, hospital, or prison...) When possible be specific @ -Wound center Did you speak to anyone other than the patient for history (EMS, parent, family, police, friend...)? What history was obtained from this source @ -No Did you review nursing and triage notes (agree or disagree)? Why? @ -I reviewed and agree with nursing and triage notes Were old charts reviewed (outside hosp., previous admission, EMS record, old EKG, old radiological studies, urgent care reports/EKG's, prison records)? Report findings @ -No old charts were reviewed Differential Diagnosis (chest pain, altered mental status, abdominal pain women, abdominal pain men, vaginal bleeding, weakness, fever, dyspnea, syncope, h eadache, dizziness, GI bleed, back pain, seizure, CVA, palpatations, mental health, musculoskeletal)? @ -Cellulitis, sepsis, anemia, CHF, weakness EKG interpreted by me (3pts min.). @ -None X-rays interpreted by me (1pt min.). @ -Chest x-ray shows no acute cardiopulmonary process X-ray right tib-fib no acute process CT interpreted by me (1pt min.). @ -None done U/S interpreted by me (1pt. min.). @ -None done What testing was considered but not performed or refused? (CT, X-rays, U/S, labs)? Why? @ -None What meds were considered but not given or refused? Why? @ -None Did you discuss the management of the patient with other professionals (professionals i.e. , PA, PLACEMENT INTERVIEWER, lab, RT, psych nurse, social media marketing manager, assistant professor of forestry, teacher, operations officer, family service caseworker)? Give summary @ -EMH for admission Was smoking cessation discussed for >3mins.? @ -No Was critical care preformed (if so, how long)? @ -No Were there social determinants of health that impacted care today? How? (Homelessness, low income, unemployed, alcoholism, drug addiction, transportation, low edu. Level, literacy, decrease access to med. care, care home, rehab)? @ -No Was there de-escalation of care discussed even if they declined (Discuss DNR or withdrawal of care, Hospice)? DNR status @ -No What co-morbidities impacted this encounter? (DM, HTN, Smoking, COPD, CAD, Cancer, CVA, ARF, Chemo, Hep., AIDS, mental health diagnosis, sleep apnea, morbid obesity)? @ -[Diabetes CHF A-fib Was patient admitted / discharged? Hospital course, mention meds given and route, prescriptions, significant lab abnormalities, going to OR and other p ertinent info. @ -Med the patient sent in by wound center for admission for possible rehab patient has increasing infection with multiple organisms we placed on dual antibiotic therapy patient does have significant peripheral edema May need diuresis. Patient have consult to infectious disease Undiagnosed new problem with uncertain prognosis? @ -No Drug Therapy requiring intensive monitoring for toxicity (Heparin, Nitro, Insulin, Cardizem)? @ -No Were any procedures done? @ -No Diagnosis/symptom? @ -Leg wound, weakness, peripheral edema, cellulitis Acute, or Chronic, or Acute on Chronic? @ -Acute Uncomplicated (without systemic symptoms) or Complicated (systemic symptoms)? @ -Complicated Side effects of treatment? @ -No Exacerbation, Progression, or Severe Exacerbation? @ -No Poses a threat to life or bodily function? How? (Chest pain, [place], [place], pneumonia, PE, COPD, DKA, ARF, appy, cholecystitis, CVA, Diverticulitis, Homicidal, Suicidal, threat to staff... and all critical care pts) @ -No - Lab Data Result diagrams: 09/18/24 10:53 09/18/24 10:53 Lab Results 09/18/24 09/18/24 09/18/24 Range/Units 10:53 10:53 10:53 WBC 7.4 (3.8-10.6) k/uL RBC 4.67 (4.30-5.90) m/uL Hgb 10.0 L (13.0-17.5) gm/dL Hct 32.3 L (39.0-53.0) % MCV 69.2 L (80.0-100.0) fL MCH 21.4 L (25.0-35.0) pg MCHC 30.9 L (31.0-37.0) g/dL RDW 16.8 H (11.5-15.5) % Plt Count 366 (150-450) k/uL MPV 6.5 Neutrophils % 69 % Lymphocytes % 16 % Monocytes % 8 % Eosinophils % 4 % Basophils % 1 % Neutrophils # 5.1 (1.3-7.7) k/uL Lymphocytes # 1.2 (1.0-4.8) k/uL Monocytes # 0.6 (0-1.0) k/uL Eosinophils # 0.3 (0-0.7) k/uL Basophils # 0.1 (0-0.2) k/uL Hypochromasia Marked Poikilocytosis Slight Anisocytosis Slight Microcytosis Marked PT 12.7 H (10.0-12.5) sec INR 1.2 H (<1.2) APTT 26.0 (22.0-30.0) sec Sodium 130 L (137-145) mmol/L Potassium 5.2 H (3.5-5.1) mmol/L Chloride 98 (98-107) mmol/L Carbon Dioxide 25 (22-30) mmol/L Anion Gap 7 mmol/L BUN 18 (9-20) mg/dL Creatinine 0.58 L (0.66-1.25) mg/dL Est GFR (CKD-EPI)AfAm >90 (>60 ml/min/1.73 sqM) Est GFR (CKD-EPI)NonAf >90 (>60 ml/min/1.73 sqM) Glucose 300 H (74-99) mg/dL Plasma Lactic Acid Mahad (0.7-2.0) mmol/L Calcium 8.9 (8.4-10.2) mg/dL Magnesium 1.6 (1.6-2.3) mg/dL Total Bilirubin 0.8 (0.2-1.3) mg/dL AST 22 (17-59) U/L ALT 12 (4-49) U/L Alkaline Phosphatase 382 H (38-126) U/L NT-Pro-B Natriuret Pep 4440 pg/mL Total Protein 6.6 (6.3-8.2) g/dL Albumin 3.0 L (3.5-5.0) g/dL 09/18/24 Range/Units 10:53 WBC (3.8-10.6) k/uL RBC (4.30-5.90) m/uL Hgb (13.0-17.5) gm/dL Hct (39.0-53.0) % MCV (80.0-100.0) fL MCH (25.0-35.0) pg MCHC (31.0-37.0) g/dL RDW (11.5-15.5) % Plt Count (150-450) k/uL MPV Neutrophils % % Lymphocytes % % Monocytes % % Eosinophils % % Basophils % % Neutrophils # (1.3-7.7) k/uL Lymphocytes # (1.0-4.8) k/uL Monocytes # (0-1.0) k/uL Eosinophils # (0-0.7) k/uL Basophils # (0-0.2) k/uL Hypochromasia Poikilocytosis Anisocytosis Microcytosis PT (10.0-12.5) sec INR (<1.2) APTT (22.0-30.0) sec Sodium (137-145) mmol/L Potassium (3.5-5.1) mmol/L Chloride (98-107) mmol/L Carbon Dioxide (22-30) mmol/L Anion Gap mmol/L BUN (9-20) mg/dL Creatinine (0.66-1.25) mg/dL Est GFR (CKD-EPI)AfAm (>60 ml/min/1.73 sqM) Est GFR (CKD-EPI)NonAf (>60 ml/min/1.73 sqM) Glucose (74-99) mg/dL Plasma Lactic Acid Mahad 1.5 (0.7-2.0) mmol/L Calcium (8.4-10.2) mg/dL Magnesium (1.6-2.3) mg/dL Total Bilirubin (0.2-1.3) mg/dL AST (17-59) U/L ALT (4-49) U/L Alkaline Phosphatase (38-126) U/L NT-Pro-B Natriuret Pep pg/mL Total Protein (6.3-8.2) g/dL Albumin (3.5-5.0) g/dL Disposition Clinical Impression: Wound cellulitis, Leg wound, right, Edema, Weakness Disposition: ADMITTED IP TO THIS [facility] Condition: Poor Referrals: Juancho Parada MD [Primary Care Provider] - 1-2 days Time of Disposition: 12:07
[2024-09-18] MEDS: LEVOFLOXACIN 750MG-D5W PMX 750 MG in DEXTROSE/WATER 1 150ML.BAG IVPB STA (12:59)
[2024-09-18] MEDS ORDERED: hydrALAZINE HCL 20 MG/ML 1 ML VIAL IVP PRN (13:15)
[2024-09-18] MEDS ORDERED: DEXTROSE 50% SYRINGE 50 ML IVP PRN ×2 (13:16)
[2024-09-18] MEDS: FUROSEMIDE 10 MG/ML 2 ML VIAL IV STA (14:17)
[2024-09-18] MEDS: VANCOMYCIN 2,000 MG in SODIUM CHLORIDE 0.9% 500 ML 500 ML IVPB SCH (14:34)
[2024-09-18] MEDS: VANCOMYCIN 2,000 MG in SODIUM CHLORIDE 0.9% 500 ML 500 ML IVPB ONE (14:38)
[2024-09-18 17:11] LABS: Glucose,Whole Blood 326 mg/dL (70-110)
[2024-09-18] MEDS: carvediloL 12.5 MG TAB PO SCH (17:57)
[2024-09-18] MEDS: INSULIN ASPART (NovoLOG) 100 UNIT/ML VIAL SQ SCH (17:57)
[2024-09-18 20:14] LABS: Glucose,Whole Blood 320 mg/dL (70-110)
[2024-09-18 21:46] LABS: Glucose,Whole Blood 285 mg/dL (70-110)
[2024-09-18] MEDS: metroNIDAZOLE 500 MG TAB PO SCH (21:52)
[2024-09-18] MEDS: FUROSEMIDE 10 MG/ML 2 ML VIAL IV SCH (21:52)
[2024-09-18] MEDS: APIXABAN 5 MG TAB PO SCH (21:52)
[2024-09-18] MEDS: INSULIN DETEMIR (LEVEMIR) 100 UNIT/ML SYR SQ SCH (23:12)
[2024-09-18] MEDS: CEFEPIME 2 GM in SODIUM CHLORIDE 0.9% 100 ML IVPB SCH (23:51)
[2024-09-19] MEDS: PANTOPRAZOLE 40 MG TABLET PO SCH (00:27)
[2024-09-19] MEDS: BENZONATATE 100 MG CAP PO PRN (00:27)
--- NOTE | 2024-09-19 07:02 | P.CONS ---
History of Present Illness - Reason for Consult Consult date: 09/18/24 Left leg wound and cellulitis Requesting physician: Tico Valencia - Chief Complaint Weakness increasing swelling to lower extremity x days - History of Present Illness Patient is a 43-year-old male with a past medical history significant for atrial fibrillation coronary disease diabetes mellitus hypertension hyperlipidemia in this patient also have a history of necrotizing infection to the right leg requiring multiple surgeries at done with initial culture positive for ESBL E. coli for the patient has completed his antibiotic therapy patient recently did have a outpatient culture done from the right leg which did grew Pseudomonas Streptococcus agalactiae and MRSA with the patient has been treated with oral Bactrim DS and Cipro patient is now presenting to [facility] on ER concerning for generalized weakness and increasing swelling throughout his body and the patient was advised by the wound care to go to the ER patient denies high-grade fever or any chills has been complaining of mostly swelling to the left lower extremity and also have some discomfort mostly dull aching mild to moderate intensity without any radiation patient denies having any nausea no vomiting no abdominal pain only diarrhea on presentation to the hospital the patient was afebrile and no fever has been recorded subsequently patient was not tachycardic hypotensive or hypoxic no need for supplemental oxygen he did have white count 7.4 creatinine 0.58 potassium is 5.2 liver enzymes are normal patient was given a dose of Levaquin in the ER started on vancomycin infectious disease was consulted regarding right leg wound and cellulitis and management of antibiotic therapy Review of Systems Positive point and negatives has been mentioned in the HPI, complete review of systems was performed and all other systems are negative Past Medical History Past Medical History: Atrial Fibrillation, Coronary Artery Disease (CAD), Diabetes Mellitus, Hyperlipidemia, Hypertension Additional Past Medical History / Comment(s): neuropathy Last Myocardial Infarction Date:: 11/20/2020 History of Any Multi-Drug Resistant Organisms: ESBL, MRSA Year Discovered:: 08/26/24-MRSA; 03/03/21-ESBL MDRO Source:: MRSA-rt leg; ESBL-Left Foot Past Surgical History: Back Surgery, Heart Catheterization With Stent, Hernia Repair Additional Past Surgical History / Comment(s): 4 cardiac stents 11/20/2020, 1 cardiac stent 11/23/2020 Past Anesthesia/Blood Transfusion Reactions: No Reported Reaction Date of Last Stent Placement:: 2020 Past Psychological History: Depression Smoking Status: Never smoker Past Alcohol Use History: None Reported Past Drug Use History: None Reported - Past Family History Mother Family Medical History: Diabetes Mellitus Father Family Medical History: Congestive Heart Failure (CHF), Coronary Artery Disease (CAD), Diabetes Mellitus, Hypertension, Myocardial Infarction ([place]) Additional Family Medical History / Comment(s): father 2018 from [place] Medications and Allergies Home Medications Medication Instructions Recorded Confirmed Type Atorvastatin [Lipitor] 80 mg PO DAILY 10/12/22 09/18/24 History carvediloL [Coreg] 25 mg PO BID 10/12/22 09/18/24 History Apixaban [Eliquis] 5 mg PO BID 05/15/24 09/18/24 History Aspirin 81 mg PO DAILY 05/15/24 09/18/24 History INSULIN ASPART (NovoLOG) [NovoLOG 15 unit SQ HS 05/15/24 09/18/24 History (formulary)] Insulin Detemir (Levemir) [Levemir] 15 unit SQ BID 05/15/24 09/18/24 History Nitroglycerin Sl Tabs [Nitrostat] 0.4 mg SL Q5M PRN 05/15/24 09/18/24 History Ciprofloxacin HCl [Cipro] 750 mg PO Q12H 09/18/24 09/18/24 History Sulfamethox-Tmp 800-160Mg [Bactrim 1 tab PO BID 09/18/24 09/18/24 History DS 800-160 mg] Allergies Allergy/AdvReac Type Severity Reaction Status Date / Time Fish Containing Products AdvReac Unknown Verified 09/18/24 11:35 [Fish] Physical Exam Vitals: Vital Signs Temp Pulse Resp BP Pulse Ox 09/18/24 09:14 97.9 F 93 20 170/118 95 Intake and Output 09/17/24 09/18/24 09/18/24 22:59 06:59 14:59 Other: Weight 124.738 kg GENERAL DESCRIPTION: Middle-aged male up in the chair, no distress. No tachypnea or accessory muscle of respiration use. HEENT: Shows Pallor , no scleral icterus. Oral mucous membrane is dry. No pharyngeal erythema or thrush NECK: Trachea central, no thyromegaly. LUNGS: Unlabored breathing. Clear to auscultation anteriorly. No wheeze or crackle. HEART: S1, S2, regular rate and rhythm. No loud murmur ABDOMEN: Soft, no tenderness , guarding or rigidity, no organomegaly EXTREMITIES: Right leg wound is currently covered with a wound VAC review of the picture taken yesterday shows overall clean wound except some slough tissue at the upper end did have diffuse swelling to the leg with minimal redness SKIN: No rash, no masses palpable. NEUROLOGICAL: The patient is awake, alert, oriented x3, mood and affect normal. Results CBC & Chem 7: 09/18/24 10:53 09/18/24 10:53 Labs: Abnormal Lab Results - Last 24 Hours (Table) 09/18/24 09/18/24 09/18/24 Range/Units 10:53 10:53 10:53 Hgb 10.0 L (13.0-17.5) gm/dL Hct 32.3 L (39.0-53.0) % MCV 69.2 L (80.0-100.0) fL MCH 21.4 L (25.0-35.0) pg MCHC 30.9 L (31.0-37.0) g/dL RDW 16.8 H (11.5-15.5) % PT 12.7 H (10.0-12.5) sec INR 1.2 H (<1.2) Sodium 130 L (137-145) mmol/L Potassium 5.2 H (3.5-5.1) mmol/L Creatinine 0.58 L (0.66-1.25) mg/dL Glucose 300 H (74-99) mg/dL Alkaline Phosphatase 382 H (38-126) U/L Albumin 3.0 L (3.5-5.0) g/dL Assessment and Plan (1) Leg wound, right Current Visit: Yes Status: Acute Code(s): S81.801A - UNSPECIFIED OPEN WOUND, RIGHT LOWER LEG, INITIAL ENCOUNTER SNOMED Code(s): 78401562018420796 (2) Wound cellulitis Current Visit: Yes Status: Acute Code(s): L03.90 - CELLULITIS, UNSPECIFIED SNOMED Code(s): 949518650 Plan: 1patient presented to hospital with increasing swelling pain and redness of the right lower extremity in this patient who did have a history of necrotizing infection to the right leg requiring multiple surgery currently dealing with a large wound with a recent outpatient culture positive for strep MRSA and Pseudomonas now presenting with worsening swelling and weakness did not have any fever or elevated white count 2patient will be treated with vancomycin pharmacy to dose will add cefepime and Flagyl to cover for the pathogen found on the last culture. 3May need aggressive diuresis as well as PT to manage his symptoms. 4local wound care per the wound care team. We will follow on clinical condition and cultures to further adjust medication if needed Thank you for this consultation we will follow the patient along with you Dictation was produced using ip.access dictation software. please excuse any grammatical, word or spelling errors. Time with Patient: Greater than 30
[2024-09-19 07:30] LABS: Glucose,Whole Blood 182 mg/dL (70-110)
[2024-09-19] MEDS: ATORVASTATIN 80 MG TAB PO SCH (08:37)
[2024-09-19] MEDS: ASPIRIN 81 MG PO SCH (08:37)
[2024-09-19 09:11] LABS: Basophils # (A) 0.06 X 10*3/uL (0.00-0.10); Basophils % (A) 0.8 %; Eosinophils # (A) 0.38 X 10*3/uL (0.04-0.35); HCT 28.7 % (39.6-50.0); HGB 8.5 g/dL (13.0-17.0); Lymphocytes # (A) 0.83 X 10*3/uL (0.90-5.00); Lymphocytes % (A) 10.8 %; MCH 20.3 pg (27.0-32.0); MCHC 29.6 g/dL (32.0-37.0); MCV 68.5 FL (80.0-97.0); Mean Platelet Volume 9.5 FL (9.5-12.2); Monocytes # (A) 0.71 X 10*3/uL (0.20-1.00); Monocytes % (A) 9.3 %; NRBC Per 100 WBC 0 X 10*3/uL (0.00-0.01); Neutrophils # (A) 5.65 X 10*3/uL (1.80-7.70); Neutrophils % (A) 73.7 %; Platelet Count 371 X 10*3/uL (140-440); RBC 4.19 X 10*6/uL (4.40-5.60); RDW 17.5 % (11.5-14.5); WBC 7.66 X 10*3/uL (4.50-10.00)
[2024-09-19 09:15] LABS: ALT 8 U/L (10-49); AST 14 U/L (14-35); Albumin 2.7 g/dL (3.8-4.9); Albumin/Globulin Ratio 0.87 Ratio (1.60-3.17); Alkaline Phosphatase 383 U/L (41-126); BUN/Creat Ratio 20.38 Ratio (12.00-20.00); Blood Urea Nitrogen 16.3 mg/dL (9.0-27.0); Calcium 8.5 mg/dL (8.7-10.3); Carbon Dioxide 28.8 mmol/L (21.6-31.8); Chloride 99 mmol/L (96-109); Globulin 3.1 g/dL (1.6-3.3); Glucose 163 mg/dL (70-110); Potassium 4.4 mmol/L (3.5-5.5); Sodium 137 mmol/L (135-145); Total Bilirubin 0.5 mg/dL (0.3-1.2); Total Protein 5.8 g/dL (6.2-8.2)
[2024-09-19 12:08] LABS: Glucose,Whole Blood 215 mg/dL (70-110)
[2024-09-19] MEDS: VANCOMYCIN 2,000 MG in SODIUM CHLORIDE 0.9% 500 ML 500 ML IVPB SCH (12:32)
--- NOTE | 2024-09-19 13:14 | P.HPIM ---
History of Present Illness H&P Date: 09/19/24 History of present illness; patient is a 43-year-old gentleman past medical history significant for hyperlipidemia, diabetes mellitus, right lower extremity fasciotomy with wound VAC placement who presented the ER because of increasing weakness and swelling of right lower extremity. Patient had multiple surgeries on his right leg and initially was getting antibiotics for ESBL E. coli. Patient was following up outpatient at the wound care center and had a recent wound culture done which showed Pseudomonas, Streptococcus electrically and MRSA, and was prescribed oral antibiotics. Patient was noticing for the last week he has been getting more weak and has noticed that his lower extremities w ere getting swollen. Patient also complained abdominal distention. Patient denied any fever or chills. There was no complaint of chest pain or shortness of breath. Patient was seen in the wound care clinic and was sent to the ER Initial lab work done in the ER showed WBC 7.4, hemoglobin 10, platelet count 366, sodium 130, potassium 5.2, BUN 18, creatinine 0.58, glucose 300, lactate 1.5, calcium 8.9, magnesium 1.6, alk phos 382, proBNP 4440 albumin 3 X-ray tibia and fibula showed no acute osseous abnormality, soft tissue changes in the medial right foreleg Chest x-ray done in the ER showed no acute cardiopulmonary process Patient admitted to internal medicine service REVIEW OF SYSTEMS: CONSTITUTIONAL: No fever, no malaise, no fatigue. HEENT: No recent visual problems or hearing problems. Denied any sore throat. CARDIOVASCULAR: As mentioned above PULMONARY: As mentioned above GASTROINTESTINAL: No diarrhea, no nausea, no vomiting, no abdominal pain. NEUROLOGICAL: No headaches, no weakness, no numbness. HEMATOLOGICAL: Denies any bleeding or petechiae. GENITOURINARY: Denies any burning micturition, frequency, or urgency. MUSCULOSKELETAL/RHEUMATOLOGICAL: Complaining of swelling of lower extremities ENDOCRINE: Denies any polyuria or polydipsia. The rest of the 14-point review of systems is negative. PHYSICAL EXAMINATION: GENERAL: The patient is alert and oriented x3, not in any acute distress. Well developed, well nourished. HEENT: Pupils are round and equally reacting to light. EOMI. No scleral icterus. No conjunctival pallor. Normocephalic, atraumatic. No pharyngeal erythema. No thyromegaly. CARDIOVASCULAR: S1 and S2 present. No murmurs, rubs, or gallops. PULMONARY: Chest is clear to auscultation, no wheezing or crackles. ABDOMEN: Distended, normoactive bowel sounds. No palpable organomegaly. MUSCULOSKELETAL: No joint abnormality EXTREMITIES: Right lower extremity wound VAC seen, 3+ pitting edema lower extremity NEUROLOGICAL: Gross neurological examination did not reveal any focal deficits. SKIN: No rashes. Assessment and plan Right lower extremity cellulitis Chronic right leg wound with wound VAC Generalized anasarca Insulin-dependent diabetes mellitus Hypertension Hyperlipidemia Atrial fibrillation Monitor vital signs Monitor CBC Monitor CMP Continue telemetry monitoring Ordered blood cultures ordered wound cultures Ordered CRP, ESR Strict I's and O's, daily weights, start IV Lasix 20 mg every 12 Start IV cefepime, Flagyl, vancomycin Consult cardiology Consult ID Labs and medication were reviewed.. Continue same treatment. Continue with symptomatic treatment. Resume home medication. Monitor labs and vitals. DVT and GI prophylaxis. Further recommendations as per clinical course of the patient Dictation was produced using Peer[employer] dictation software. please excuse any grammatical, word or spelling errors. Past Medical History Past Medical History: Atrial Fibrillation, Coronary Artery Disease (CAD), Diabetes Mellitus, Hyperlipidemia, Hypertension Additional Past Medical History / Comment(s): neuropathy Last Myocardial Infarction Date:: 11/20/2020 History of Any Multi-Drug Resistant Organisms: ESBL, MRSA Date of last positivie culture/infection: 08/26/24-MRSA; 03/03/21-ESBL MDRO Source:: MRSA-rt leg; ESBL-Left Foot Past Surgical History: Back Surgery, Heart Catheterization With Stent, Hernia Repair Additional Past Surgical History / Comment(s): 4 cardiac stents 11/20/2020, 1 cardiac stent 11/23/2020 Past Anesthesia/Blood Transfusion Reactions: No Reported Reaction Date of Last Stent Placement:: 2020 Past Psychological History: Depression Smoking Status: Never smoker Past Alcohol Use History: None Reported Past Drug Use History: None Reported - Past Family History Mother Family Medical History: Diabetes Mellitus Father Family Medical History: Congestive Heart Failure (CHF), Coronary Artery Disease (CAD), Diabetes Mellitus, Hypertension, Myocardial Infarction ([place]) Additional Family Medical History / Comment(s): father 2018 from [place] Medications and Allergies Home Medications Medication Instructions Recorded Confirmed Type Atorvastatin [Lipitor] 80 mg PO DAILY 10/12/22 09/18/24 History carvediloL [Coreg] 25 mg PO BID 10/12/22 09/18/24 History Apixaban [Eliquis] 5 mg PO BID 05/15/24 09/18/24 History Aspirin 81 mg PO DAILY 05/15/24 09/18/24 History INSULIN ASPART (NovoLOG) [NovoLOG 15 unit SQ HS 05/15/24 09/18/24 History (formulary)] Insulin Detemir (Levemir) [Levemir] 15 unit SQ BID 05/15/24 09/18/24 History Nitroglycerin Sl Tabs [Nitrostat] 0.4 mg SL Q5M PRN 05/15/24 09/18/24 History Ciprofloxacin HCl [Cipro] 750 mg PO Q12H 09/18/24 09/18/24 History Sulfamethox-Tmp 800-160Mg [Bactrim 1 tab PO BID 09/18/24 09/18/24 History DS 800-160 mg] Allergies Allergy/AdvReac Type Severity Reaction Status Date / Time Fish Containing Products AdvReac Unknown Verified 09/18/24 11:35 [Fish] Physical Exam Vitals: Vital Signs Temp Pulse Pulse Resp BP BP Pulse Ox 09/19/24 11:22 100.0 F H 60 16 129/82 94 L 09/19/24 08:18 98.3 F 78 16 149/93 97 09/19/24 08:00 98.4 F 79 16 152/95 98 09/19/24 01:49 97.6 F 77 16 123/81 98 09/18/24 21:15 97.4 F L 92 18 175/118 97 09/18/24 19:44 93 18 155/99 98 09/18/24 17:56 93 18 164/108 98 09/18/24 15:51 90 16 171/112 97 09/18/24 12:57 91 16 186/128 98 Intake and Output 09/18/24 09/19/24 09/19/24 22:59 06:59 14:59 Intake Total 100 Output Total 1200 Balance -1100 Intake: Intake, IV Titration 100 Amount Cefepime 2 gm In Sodium 100 Chloride 0.9% 100 ml @ 25 mls/hr IVPB Q8HR [facility] Rx# :[id number] Output: Urine 1200 Other: Voiding Method Urinal Urinal # Bowel Movements 2 Weight 124.738 kg Results CBC & Chem 7: 09/19/24 05:25 09/19/24 05:25 Labs: Abnormal Lab Results - Last 24 Hours (Table) 09/18/24 09/18/24 09/18/24 Range/Units 17:10 20:13 21:45 RBC (4.40-5.60) X 10*6/uL Hgb (13.0-17.0) g/dL Hct (39.6-50.0) % MCV (80.0-97.0) FL MCH (27.0-32.0) pg MCHC (32.0-37.0) g/dL RDW (11.5-14.5) % Lymphocytes # (0.90-5.00) X 10*3/uL Eosinophils # (0.04-0.35) X 10*3/uL BUN/Creatinine Ratio (12.00-20.00) Ratio Glucose (70-110) mg/dL POC Glucose (mg/dL) 326 H 320 H 285 H (70-110) mg/dL Hemoglobin A1c (<=6.0) % Calcium (8.7-10.3) mg/dL ALT (10-49) U/L Alkaline Phosphatase (41-126) U/L Total Protein (6.2-8.2) g/dL Albumin (3.8-4.9) g/dL Albumin/Globulin Ratio (1.60-3.17) Ratio 09/19/24 09/19/24 09/19/24 Range/Units 05:25 05:25 05:25 RBC 4.19 L (4.40-5.60) X 10*6/uL Hgb 8.5 L (13.0-17.0) g/dL Hct 28.7 L (39.6-50.0) % MCV 68.5 L (80.0-97.0) FL MCH 20.3 L (27.0-32.0) pg MCHC 29.6 L (32.0-37.0) g/dL RDW 17.5 H (11.5-14.5) % Lymphocytes # 0.83 L (0.90-5.00) X 10*3/uL Eosinophils # 0.38 H (0.04-0.35) X 10*3/uL BUN/Creatinine Ratio 20.38 H (12.00-20.00) Ratio Glucose 163 H (70-110) mg/dL POC Glucose (mg/dL) (70-110) mg/dL Hemoglobin A1c 13.3 H (<=6.0) % Calcium 8.5 L (8.7-10.3) mg/dL ALT 8 L (10-49) U/L Alkaline Phosphatase 383 H (41-126) U/L Total Protein 5.8 L (6.2-8.2) g/dL Albumin 2.7 L (3.8-4.9) g/dL Albumin/Globulin Ratio 0.87 L (1.60-3.17) Ratio 09/19/24 Range/Units 07:29 RBC (4.40-5.60) X 10*6/uL Hgb (13.0-17.0) g/dL Hct (39.6-50.0) % MCV (80.0-97.0) FL MCH (27.0-32.0) pg MCHC (32.0-37.0) g/dL RDW (11.5-14.5) % Lymphocytes # (0.90-5.00) X 10*3/uL Eosinophils # (0.04-0.35) X 10*3/uL BUN/Creatinine Ratio (12.00-20.00) Ratio Glucose (70-110) mg/dL POC Glucose (mg/dL) 182 H (70-110) mg/dL Hemoglobin A1c (<=6.0) % Calcium (8.7-10.3) mg/dL ALT (10-49) U/L Alkaline Phosphatase (41-126) U/L Total Protein (6.2-8.2) g/dL Albumin (3.8-4.9) g/dL Albumin/Globulin Ratio (1.60-3.17) Ratio Thrombosis Risk Factor Assmnt - Choose All That Apply Any of the Below Risk Factors Present?: Yes Each Factor Represents 1 point: Age 41-60 years, Obesity (BMI >25), Swollen legs (current) Each Risk Factor Represents 2 Points: Patient confined to bed Thrombosis Risk Factor Assessment Total Risk Factor Score: 5 Thrombosis Risk Factor Assessment Level: High Risk
--- NOTE | 2024-09-19 14:28 | P.CRDCN ---
History of Present Illness Consult date: 09/19/24 Reason for Consult (text): CHF History of present illness: This is a 43-year-old male patient of Dr. Abad last seen in the office in January 2021 with past medical history of hypertension, uncontrolled diabetes mellitus type 2, obesity, family history of premature coronary artery disease, history of coronary artery disease status post ST MATILDA and PCI of the LAD and RCA, ischemic cardiomyopathy with EF 35 to 40%, chronic atrial fibrillation. We have been asked to evaluate the patient for CHF. Patient states that he has had a chronic wound on his right leg going on 8 to 9 months. He states he has had multiple surgeries done on the wounds by Dr. Wright. Patient had a PICC line placed 3 to 4 weeks ago and is currently on oral antibiotics in the outpatient setting. Patient has had increased weakness generalized. He has been following in the wound center on a regular basis and had a wound VAC in place. He states he has had increased edema all over his body. He denies increased shortness of breath. Blood pressure 129/82, heart rate 60, pulse ox 94% on room air. Patient has been started on IV Lasix 20 mg every 12 hours. -EKG: None -Chest x-ray: No acute process. Cardiomegaly. -Laboratory studies: WBC 7.6, hemoglobin 8.5 electrolytes are normal. Renal function normal with BUN 16 creatinine 0.8. Hemoglobin A1c 13.3. Alkaline phosphatase 383. proBNP 4440. -Home cardiac medications: Eliquis 5 mg twice daily, aspirin 81 mg daily, atorvastatin 80 mg daily, Coreg 25 mg twice daily, Nitrostat. -Echocardiogram and 2020 revealed EF of 45 to 50%, mild concentric left ventricular hypertrophy, septal hypokinesis. Right ventricle is mild to moderately enlarged. LA is moderately dilated at 34 to 39 mL/M2, mild mitral regurgitation, mild tricuspid regurgitation. Review Of Systems: At the time of my exam: CONSTITUTIONAL: Denies fever or chills. Reports generalized weakness HEENT: Denies blurred vision, vision changes, or eye pain. Denies hemoptysis CARDIOVASCULAR: Denies chest pain. Denies orthopnea. Denies PND. Denies palpitations RESPIRATORY: Denies shortness of breath. GASTROINTESTINAL: Denies abdominal pain. Denies nausea or vomiting. HEMATOLOGIC: Denies bleeding disorders. GENITOURINARY: Denies any blood in urine. SKIN: Denies puritis. Denies rash. Reports wounds Physical examination: Gen: This is an obese 43-year-old male in no acute respiratory distress. VS: reviewed HEENT: Head is atraumatic, normocephalic. Pupils equal, round. Sclerae is anicteric. NECK: Supple. No JVD. LUNGS: Clear to auscultation. No wheezes or rhonchi. No intercostal retractions. HEART: Regular rate and rhythm. No murmur. ABDOMEN: Soft No tenderness. EXTREMITIES: 3+ lower extremity pitting edema. Dressing in place to the right leg wound NEUROLOGICAL: Patient is awake, alert and oriented x3. Assessment: Right lower extremity wounds, chronic, failed outpatient treatment Acute on chronic heart failure Chronic atrial fibrillation History of coronary artery disease status post NSTEMI and PCI of the LAD and RCA Ischemic cardiomyopathy with previous EF of 35 to 40% Hypertension Uncontrolled diabetes with A1c of 13 Obesity with BMI of 34 Noncompliance with follow-up Plan: Resume patient's home cardiac medications Increase IV Lasix to 40 mg every 12 hours Monitor EDIN, daily weights, electrolytes and renal function Obtain EKG Obtain 2-D echocardiogram and Doppler study to assess cardiac structure and fun ction Further recommendations to follow based upon clinical course Thank you kindly for this consultation. Nurse practitioner note has been reviewed, I agree with documented findings and plan of care. Patient was seen and examined. Past Medical History Past Medical History: Atrial Fibrillation, Coronary Artery Disease (CAD), Diabetes Mellitus, Hyperlipidemia, Hypertension Additional Past Medical History / Comment(s): neuropathy Last Myocardial Infarction Date:: 11/20/2020 History of Any Multi-Drug Resistant Organisms: ESBL, MRSA Date of last positivie culture/infection: 08/26/24-MRSA; 03/03/21-ESBL MDRO Source:: MRSA-rt leg; ESBL-Left Foot Past Surgical History: Back Surgery, Heart Catheterization With Stent, Hernia Repair Additional Past Surgical History / Comment(s): 4 cardiac stents 11/20/2020, 1 cardiac stent 11/23/2020 Past Anesthesia/Blood Transfusion Reactions: No Reported Reaction Date of Last Stent Placement:: 2020 Past Psychological History: Depression Smoking Status: Never smoker Past Alcohol Use History: None Reported Past Drug Use History: None Reported - Past Family History Mother Family Medical History: Diabetes Mellitus Father Family Medical History: Congestive Heart Failure (CHF), Coronary Artery Disease (CAD), Diabetes Mellitus, Hypertension, Myocardial Infarction ([place]) Additional Family Medical History / Comment(s): father 2018 from [place] Medications and Allergies Home Medications Medication Instructions Recorded Confirmed Type Atorvastatin [Lipitor] 80 mg PO DAILY 10/12/22 09/18/24 History carvediloL [Coreg] 25 mg PO BID 10/12/22 09/18/24 History Apixaban [Eliquis] 5 mg PO BID 05/15/24 09/18/24 History Aspirin 81 mg PO DAILY 05/15/24 09/18/24 History INSULIN ASPART (NovoLOG) [NovoLOG 15 unit SQ HS 05/15/24 09/18/24 History (formulary)] Insulin Detemir (Levemir) [Levemir] 15 unit SQ BID 05/15/24 09/18/24 History Nitroglycerin Sl Tabs [Nitrostat] 0.4 mg SL Q5M PRN 05/15/24 09/18/24 History Ciprofloxacin HCl [Cipro] 750 mg PO Q12H 09/18/24 09/18/24 History Sulfamethox-Tmp 800-160Mg [Bactrim 1 tab PO BID 09/18/24 09/18/24 History DS 800-160 mg] Allergies Allergy/AdvReac Type Severity Reaction Status Date / Time Fish Containing Products AdvReac Unknown Verified 09/18/24 11:35 [Fish] Physical Exam Vitals: Vital Signs Temp Pulse Pulse Resp BP BP Pulse Ox 09/19/24 11:22 100.0 F H 60 16 129/82 94 L 09/19/24 08:18 98.3 F 78 16 149/93 97 09/19/24 08:00 98.4 F 79 16 152/95 98 09/19/24 01:49 97.6 F 77 16 123/81 98 09/18/24 21:15 97.4 F L 92 18 175/118 97 09/18/24 19:44 93 18 155/99 98 09/18/24 17:56 93 18 164/108 98 09/18/24 15:51 90 16 171/112 97 09/18/24 12:57 91 16 186/128 98 Intake and Output 09/18/24 09/19/24 09/19/24 22:59 06:59 14:59 Intake Total 100 Output Total 1200 Balance -1100 Intake: Intake, IV Titration 100 Amount Cefepime 2 gm In Sodium 100 Chloride 0.9% 100 ml @ 25 mls/hr IVPB Q8HR [facility] Rx# :[id number] Output: Urine 1200 Other: Voiding Method Urinal Urinal # Bowel Movements 2 Weight 124.738 kg Results 09/19/24 05:25 09/19/24 05:25 Cardiac Enzymes 09/19/24 Range/Units 05:25 AST 14 (14-35) U/L CBC 09/19/24 Range/Units 05:25 WBC 7.66 (4.50-10.00) X 10*3/uL RBC 4.19 L (4.40-5.60) X 10*6/uL Hgb 8.5 L (13.0-17.0) g/dL Hct 28.7 L (39.6-50.0) % Plt Count 371 (140-440) X 10*3/uL Comprehensive Metabolic Panel 09/19/24 Range/Units 05:25 Sodium 137 (135-145) mmol/L Potassium 4.4 (3.5-5.5) mmol/L Chloride 99 (96-109) mmol/L Carbon Dioxide 28.8 (21.6-31.8) mmol/L BUN 16.3 (9.0-27.0) mg/dL Creatinine 0.8 (0.6-1.5) mg/dL Glucose 163 H (70-110) mg/dL Calcium 8.5 L (8.7-10.3) mg/dL AST 14 (14-35) U/L ALT 8 L (10-49) U/L Alkaline Phosphatase 383 H (41-126) U/L Total Protein 5.8 L (6.2-8.2) g/dL Albumin 2.7 L (3.8-4.9) g/dL Current Medications Generic Name Dose Route Start Last Admin Trade Name Freq PRN Reason Stop Dose Admin Acetaminophen 650 mg 09/18/24 12:07 Acetaminophen Tab 325 Mg Tab PO Q6HR PRN Mild Pain or Fever > 100.5 Apixaban 5 mg 09/18/24 21:00 09/19/24 08:37 Apixaban 5 Mg Tab PO 5 mg BID [facility] Administration Protocol Aspirin 81 mg 09/19/24 09:00 09/19/24 08:37 Aspirin 81 Mg PO 81 mg DAILY LIZA Administration Atorvastatin Calcium 80 mg 09/19/24 09:00 09/19/24 08:37 Atorvastatin 80 Mg Tab PO 80 mg DAILY LIZA Administration Benzonatate 100 mg 09/19/24 00:12 09/19/24 00:27 Benzonatate 100 Mg Cap PO 100 mg TID PRN Administration Cough Carvedilol 25 mg 09/18/24 17:30 09/19/24 08:35 Carvedilol 12.5 Mg Tab PO 25 mg BID-W/MEALS LIZA Administration Dextrose/Water 25 ml 09/18/24 13:16 Dextrose 50% Syringe 50 Ml IVP PER PROTOCOL PRN Hypoglycemia Protocol Dextrose/Water 50 ml 09/18/24 13:16 Dextrose 50% Syringe 50 Ml IVP PER PROTOCOL PRN Hypoglycemia Protocol Furosemide 20 mg 09/18/24 21:00 09/19/24 08:38 Furosemide 10 Mg/Ml 2 Ml Vial IV 20 mg Q12HR [facility]ZA Administration Guaifenesin 250 mg 09/19/24 00:12 Guaifenesin Syrup 100mg/5ml 200 Mg/10 Ml Cup PO Q6HR PRN Cough Hydralazine HCl 10 mg 09/18/24 13:15 Hydralazine Hcl 20 Mg/Ml 1 Ml Vial IVP Q6HR PRN Blood Pressure - High Cefepime HCl 2 gm/ Sodium 100 mls @ 25 mls/hr 09/19/24 00:00 09/19/24 08:36 Chloride IVPB 25 mls/hr Q8HR [facility] Administration Protocol Vancomycin HCl 2,000 mg/ 500 mls @ 167 mls/hr 09/19/24 12:00 Sodium Chloride IVPB Q12H [facility] Insulin Aspart 0 unit 09/18/24 17:30 09/19/24 08:35 Insulin Aspart (Novolog) 100 Unit/Ml Vial SQ 3 unit ACHS [facility] Administration Protocol Insulin Detemir 15 unit 09/18/24 21:00 09/19/24 08:38 Insulin Detemir (Levemir) 100 Unit/Ml Syr SQ 15 unit BID [facility] Administration Metronidazole 500 mg 09/18/24 22:00 09/19/24 08:38 Metronidazole 500 Mg Tab PO 500 mg TID [facility] Administration Protocol Naloxone HCl 0.2 mg 09/18/24 12:07 Naloxone 0.4 Mg/Ml 1 Ml Vial IV Q2M PRN Opioid Reversal Pantoprazole Sodium 40 mg 09/19/24 00:30 09/19/24 08:36 Pantoprazole 40 Mg Tablet PO 40 mg AC-BID [facility] Administration Intake and Output 09/18/24 09/19/24 09/19/24 22:59 06:59 14:59 Intake Total 100 Output Total 1200 Balance -1100 Intake: Intake, IV Titration 100 Amount Cefepime 2 gm In Sodium 100 Chloride 0.9% 100 ml @ 25 mls/hr IVPB Q8HR [facility] Rx# :[id number] Output: Urine 1200 Other: Voiding Method Urinal Urinal # Bowel Movements 2 Weight 124.738 kg 09/19/24 05:25 09/19/24 05:25
--- NOTE | 2024-09-19 14:37 | P.PN ---
Subjective Progress Note Date: 09/19/24 Principal diagnosis: Reason for follow-up is right lower extremity wound Patient is a 43-year-old male with a past medical history significant for atrial fibrillation coronary disease diabetes mellitus hypertension hyperlipidemia in this patient also have a history of necrotizing infection to the right leg requiring multiple surgeries has completed course of IV antibiotic for his ESBL infection and was on oral Cipro and Bactrim with a recent culture positive for Pseudomonas and MRSA presented to hospital with weakness and worsening swelling. On today's evaluation that is 09/19/2024,the patient did have a low-grade fever 100 Fahrenheit at 11 AM, patient is on room air not requiring supplemental oxygen and denies any shortness of breath no chest pain or cough.Patient denies having any nausea or vomiting, no abdominal pain and no diarrhea has been reported, still complaining of weakness and swelling to lower extremity. Patient white count 7.66, creatinine 0.8 Objective - Vital Signs Vital signs: Vital Signs Temp 100.0 F H 09/19/24 11:22 Pulse 60 09/19/24 11:22 Resp 16 09/19/24 11:22 BP 129/82 09/19/24 11:22 Pulse Ox 94 L 09/19/24 11:22 FiO2 Intake & Output 09/18/24 09/19/24 09/19/24 18:59 06:59 18:59 Intake Total 100 1080 Output Total 1200 Balance -1100 1080 Weight 124.738 kg 124.738 kg Intake: Intake, IV Titration 100 Amount Cefepime 2 gm In Sodium 100 Chloride 0.9% 100 ml @ 25 mls/hr IVPB Q8HR [facility] Rx# :[id number] Oral 1080 Output: Urine 1200 Other: Voiding Method Urinal Urinal # Voids 6 # Bowel Movements 2 - Exam GENERAL DESCRIPTION: Middle-age male lying in bed in no distress RESPIRATORY SYSTEM: Unlabored breathing , decreased breath sounds at bases HEART: S1 S2 regular rate and rhythm , ABDOMEN: Soft , no tenderness EXTREMITIES: Right leg wound is currently covered with a wound VAC - Labs CBC & Chem 7: 09/19/24 05:25 09/19/24 05:25 Labs: Abnormal Lab Results - Last 24 Hours (Table) 09/18/24 09/18/24 09/18/24 Range/Units 17:10 20:13 21:45 RBC (4.40-5.60) X 10*6/uL Hgb (13.0-17.0) g/dL Hct (39.6-50.0) % MCV (80.0-97.0) FL MCH (27.0-32.0) pg MCHC (32.0-37.0) g/dL RDW (11.5-14.5) % Lymphocytes # (0.90-5.00) X 10*3/uL Eosinophils # (0.04-0.35) X 10*3/uL BUN/Creatinine Ratio (12.00-20.00) Ratio Glucose (70-110) mg/dL POC Glucose (mg/dL) 326 H 320 H 285 H (70-110) mg/dL Hemoglobin A1c (<=6.0) % Calcium (8.7-10.3) mg/dL ALT (10-49) U/L Alkaline Phosphatase (41-126) U/L Total Protein (6.2-8.2) g/dL Albumin (3.8-4.9) g/dL Albumin/Globulin Ratio (1.60-3.17) Ratio 09/19/24 09/19/24 09/19/24 Range/Units 05:25 05:25 05:25 RBC 4.19 L (4.40-5.60) X 10*6/uL Hgb 8.5 L (13.0-17.0) g/dL Hct 28.7 L (39.6-50.0) % MCV 68.5 L (80.0-97.0) FL MCH 20.3 L (27.0-32.0) pg MCHC 29.6 L (32.0-37.0) g/dL RDW 17.5 H (11.5-14.5) % Lymphocytes # 0.83 L (0.90-5.00) X 10*3/uL Eosinophils # 0.38 H (0.04-0.35) X 10*3/uL BUN/Creatinine Ratio 20.38 H (12.00-20.00) Ratio Glucose 163 H (70-110) mg/dL POC Glucose (mg/dL) (70-110) mg/dL Hemoglobin A1c 13.3 H (<=6.0) % Calcium 8.5 L (8.7-10.3) mg/dL ALT 8 L (10-49) U/L Alkaline Phosphatase 383 H (41-126) U/L Total Protein 5.8 L (6.2-8.2) g/dL Albumin 2.7 L (3.8-4.9) g/dL Albumin/Globulin Ratio 0.87 L (1.60-3.17) Ratio 09/19/24 09/19/24 Range/Units 07:29 12:07 RBC (4.40-5.60) X 10*6/uL Hgb (13.0-17.0) g/dL Hct (39.6-50.0) % MCV (80.0-97.0) FL MCH (27.0-32.0) pg MCHC (32.0-37.0) g/dL RDW (11.5-14.5) % Lymphocytes # (0.90-5.00) X 10*3/uL Eosinophils # (0.04-0.35) X 10*3/uL BUN/Creatinine Ratio (12.00-20.00) Ratio Glucose (70-110) mg/dL POC Glucose (mg/dL) 182 H 215 H (70-110) mg/dL Hemoglobin A1c (<=6.0) % Calcium (8.7-10.3) mg/dL ALT (10-49) U/L Alkaline Phosphatase (41-126) U/L Total Protein (6.2-8.2) g/dL Albumin (3.8-4.9) g/dL Albumin/Globulin Ratio (1.60-3.17) Ratio Assessment and Plan (1) Leg wound, right Current Visit: Yes Status: Acute Code(s): S81.801A - UNSPECIFIED OPEN WOUND, RIGHT LOWER LEG, INITIAL ENCOUNTER SNOMED Code(s): 53956454634197995 (2) Wound cellulitis Current Visit: Yes Status: Acute Code(s): L03.90 - CELLULITIS, UNSPECIFIED SNOMED Code(s): 386628372 Plan: 1patient presented to hospital with increasing swelling pain and redness of the right lower extremity in this patient who did have a history of necrotizing infection to the right leg requiring multiple surgery currently dealing with a large wound with a recent outpatient culture positive for strep MRSA and Pseudomonas now presenting with worsening swelling and weakness did not have any fever or elevated white count 2patient currently being with vancomycin pharmacy to dose, cefepime and Flagyl and continue supportive care Dictation was produced using [employer] dictation software. please excuse any grammatical, word or spelling errors. Time with Patient: Less than 30
[2024-09-19 17:22] LABS: Glucose,Whole Blood 183 mg/dL (70-110)
[2024-09-19 20:18] LABS: Glucose,Whole Blood 191 mg/dL (70-110)
[2024-09-19] MEDS: INSULIN GLARGINE (LANTUS) 100 UNIT/ML SYR SQ SCH (20:38)
[2024-09-19] MEDS: FUROSEMIDE 10 MG/ML 4 ML VIAL IV SCH (20:38)
[2024-09-20 05:32] LABS: African American GFR (CKD) >90 (>60 ml/min/1.73 sqM); Non-African American GFR(CKD) >90 (>60 ml/min/1.73 sqM)
[2024-09-20 06:57] LABS: Glucose,Whole Blood 136 mg/dL (70-110)
--- NOTE | 2024-09-20 10:40 | P.CONS ---
History of Present Illness - Reason for Consult Consult date: 09/20/24 wound care - History of Present Illness This is a 43-year-old patient known to the wound care center with a nonhealing ulceration to the right calf and right dorsal foot. Patient has been utilizing negative pressure wound VAC with black foam and 150 mmHg. Patient has had an increase in drainage resulting in the need to change the canister multiple times a day. Patient is followed by infectious disease for recurring infection. Patient was seen by Dr. Wright for the surgical debridement and his previous hospitalization. Patient has history of diabetes congestive heart failure and necrotizing infection. riginal cause of wound was Gradually Appeared. The date acquired was: 04/08/2024. The wound has been in treatment 19 weeks. The wound is currently classified as a Grade 2 wound with etiologies of Diabetic Wound/Ulcer of the Lower Extremity and Necrotizing Infection and is located on the Right,Dorsal Foot. The wound measures 2.5cm length x 3.9cm width x 0.2cm depth; 7.658cm^2 area and 1.532cm^3 volume. There is Fat Layer (Subcutaneous Tissue) exposed. There is no tunneling or undermining noted. There is a medium amount of serosanguineous drainage noted. The wound margin is distinct with the outline attached to the wound base. There is large (67-100%) red, pink granulation within the wound bed. There is a small (1-33%) amount of necrotic tissue within the wound bed including Adherent Slough. The periwound skin appearance exhibited: Scarring, Dry/Scaly, Erythema. The periwound skin appearance did not exhibit: Callus, Crepitus, Excoriation, Induration, Rash, Maceration, Atrophie [place], Cyanosis, Ecchymosis, Hemosiderin Staining, Mottled, Pallor, Rubor. The surrounding wound skin color is noted with erythema which is circumferential. Periwound temperature was noted as No Abnormality. Original cause of wound was Gradually Appeared. The date acquired was: 04/01/2024. The wound has been in treatment 19 weeks. The wound is currently classified as a Grade 2 wound with etiologies of Diabetic Wound/Ulcer of the Lower Extremity and Necrotizing Infection and is located on the Right,Medial Lower Leg. The wound measures 17.5cm length x 10.5cm width x 0.5cm depth; 144.317cm^2 area and 72.158cm^3 volume. There is muscle, tendon, Fat Layer (Subcutaneous Tissue), and fascia exposed. There is no tunneling or undermining noted. There is a large amount of serosanguineous drainage noted. The wound margin is distinct with the outline attached to the wound base. There is large (67-100%) red granulation within the wound bed. There is a small (1-33%) amount of necrotic tissue within the wound bed including Adherent Slough. The periwound skin appearance exhibited: Scarring. The periwound skin appearance did not exhibit: Callus, Crepitus, Excoriation, Induration, Rash, Dry/Scaly, Maceration, Atrophie [place], Cyanosis, Ecchymosis, Hemosiderin Staining, Mottled, Pallor, Rubor, Erythema. Periwound temperature was noted as No Abnormality. Review Of Systems: Constitutional: No fever, no chills, no night sweats. No weight change. No weakness, fatigue or lethargy. No daytime sleepiness. Integumentary:reports wounds, no lesions. No rash or pruritus. No unusual bruising. No change in hair or nails. Physical exam: General Appearance: Alert, cooperative, no distress, appears stated age. Skin: See HPI all other Skin color, texture, tugor normal, no rashes or lesions. Neurologic: Alert oriented x3 Assessment: 1. Nonpressure ulceration right calf with muscle necrosis 2. Right foot nonpressure ulceration with fat layer exposure 3. Diabetic foot ulcer Plan: 1. Continue with negative pressure wound VAC at 150 mmHg continuous pressure with black foam bridging to dorsal foot. Apply Vaseline impregnated gauze over exposed tendon. Change Monday. Patient will return to the wound care center when he is discharged. Please call to set up an appointment Thank you for the consultation any questions please contact the wound care center DNP note has been reviewed and discussed with Dr. Schofield and the impression and plan of care has been directed as dictated. Past Medical History Past Medical History: Atrial Fibrillation, Coronary Artery Disease (CAD), Diabetes Mellitus, Hyperlipidemia, Hypertension Additional Past Medical History / Comment(s): neuropathy Last Myocardial Infarction Date:: 11/20/2020 History of Any Multi-Drug Resistant Organisms: ESBL, MRSA Year Discovered:: 08/26/24-MRSA; 03/03/21-ESBL MDRO Source:: MRSA-rt leg; ESBL-Left Foot Past Surgical History: Back Surgery, Heart Catheterization With Stent, Hernia Repair Additional Past Surgical History / Comment(s): 4 cardiac stents 11/20/2020, 1 cardiac stent 11/23/2020 Past Anesthesia/Blood Transfusion Reactions: No Reported Reaction Date of Last Stent Placement:: 2020 Past Psychological History: Depression Smoking Status: Never smoker Past Alcohol Use History: None Reported Past Drug Use History: None Reported - Past Family History Mother Family Medical History: Diabetes Mellitus Father Family Medical History: Congestive Heart Failure (CHF), Coronary Artery Disease (CAD), Diabetes Mellitus, Hypertension, Myocardial Infarction ([place]) Additional Family Medical History / Comment(s): father 2018 from [place] Medications and Allergies Home Medications Medication Instructions Recorded Confirmed Type Atorvastatin [Lipitor] 80 mg PO DAILY 10/12/22 09/18/24 History carvediloL [Coreg] 25 mg PO BID 10/12/22 09/18/24 History Apixaban [Eliquis] 5 mg PO BID 05/15/24 09/18/24 History Aspirin 81 mg PO DAILY 05/15/24 09/18/24 History INSULIN ASPART (NovoLOG) [NovoLOG 15 unit SQ HS 05/15/24 09/18/24 History (formulary)] Insulin Detemir (Levemir) [Levemir] 15 unit SQ BID 05/15/24 09/18/24 History Nitroglycerin Sl Tabs [Nitrostat] 0.4 mg SL Q5M PRN 05/15/24 09/18/24 History Ciprofloxacin HCl [Cipro] 750 mg PO Q12H 09/18/24 09/18/24 History Sulfamethox-Tmp 800-160Mg [Bactrim 1 tab PO BID 09/18/24 09/18/24 History DS 800-160 mg] Allergies Allergy/AdvReac Type Severity Reaction Status Date / Time Fish Containing Products AdvReac Unknown Verified 09/18/24 11:35 [Fish] Physical Exam Vitals: Vital Signs Temp Pulse Pulse Resp BP Pulse Ox 09/20/24 09:47 72 09/20/24 08:00 97.4 F L 72 20 150/95 98 09/20/24 07:21 98 F 71 17 173/87 97 09/20/24 02:00 98.2 F 73 16 120/80 99 09/19/24 19:51 98 F 73 16 104/70 98 09/19/24 14:42 98.0 F 80 18 121/79 99 09/19/24 11:22 100.0 F H 60 16 129/82 94 L 09/19/24 11:00 79 Intake and Output 09/19/24 09/20/24 09/20/24 22:59 06:59 14:59 Intake Total 240 480 Output Total 1000 2200 Balance -760 -2200 480 Intake: Oral 240 480 Output: Urine 1000 2200 Other: Voiding Method Urinal Results CBC & Chem 7: 09/19/24 05:25 09/20/24 04:42 Labs: Abnormal Lab Results - Last 24 Hours (Table) 09/19/24 09/19/24 09/19/24 Range/Units 12:07 17:05 20:12 Creatinine (0.66-1.25) mg/dL POC Glucose (mg/dL) 215 H 183 H 191 H (70-110) mg/dL 09/20/24 09/20/24 Range/Units 04:42 06:56 Creatinine 0.64 L (0.66-1.25) mg/dL POC Glucose (mg/dL) 136 H (70-110) mg/dL Microbiology - Last 24 Hours (Table) 09/18/24 10:55 Blood Culture - Preliminary Blood Assessment and Plan (1) 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 Current Visit: Yes Status: Acute Code(s): L97.213 - NON-PRS CHRONIC ULCER OF RIGHT CALF W NECROSIS OF MUSCLE SNOMED Code(s): 15639979468510568 (2) Non-pressure chronic ulcer of other part of right foot with fat layer exposed Current Visit: No Status: Acute Code(s): L97.512 - NON-PRS CHRONIC ULCER OTH PRT RIGHT FOOT W FAT LAYER EXPOSED SNOMED Code(s): 46290891030136749 (3) Type 2 diabetes mellitus with foot ulcer Current Visit: No Status: Acute Code(s): E11.621 - TYPE 2 DIABETES MELLITUS WITH FOOT ULCER; L97.509 - NON-PRESSURE CHRONIC ULCER OTH PRT UNSP FOOT W UNSP SEVERITY SNOMED Code(s): 9100229046736 (4) Type 2 diabetes mellitus with other skin ulcer Current Visit: No Status: Acute Code(s): E11.622 - TYPE 2 DIABETES MELLITUS WITH OTHER SKIN ULCER; L98.499 - NON-PRESSURE CHRONIC ULCER OF SKIN OF SITES W UNSP SEVERITY SNOMED Code(s): 904258730575640
--- NOTE | 2024-09-20 11:10 | CA ---
Transthoracic Echo Report Name: Marques Bermeo Age: 43 Gender: M : 1980 Exam Date: 09/19/2024 13:42 Exam Location: [facility] Ht (in): 75 Wt (lb): 275 Ordering Physician: Sid Mann MD Attending/Referring Phys: Circular Saw Filer Pia Franz RDCS Procedure CPT: Indications: SHORTNESS OF BREATH Cardiac Hx: Technical Quality: Fair Contrast 1: Definity Total Dose (mL): 2 Contrast 2: Total Dose (mL): MEASUREMENTS (Male / Female) Normal Values 2D ECHO LV Diastolic Diameter PLAX 5.6 cm 4.2 - 5.9 / 3.9 - 5.3 cm LV Systolic Diameter PLAX 4.5 cm IVS Diastolic Thickness 1.0 cm 0.6 - 1.0 / 0.6 - 0.9 cm LVPW Diastolic Thickness 0.9 cm 0.6 - 1.0 / 0.6 - 0.9 cm LV Relative Wall Thickness 0.3 RV Internal Dim ED PLAX 2.2 cm LA Systolic Diameter LX 4.7 cm 3.0 - 4.0 / 2.7 - 3.8 cm LA Volume 90.3 cm??? 18 - 58 / 22 - 52 cm??? LA Volume Index 34.7 cm???/m??? 16 - 28 cm???/m??? M-MODE Aortic Root Diameter MM 3.8 cm LA Systolic Diameter MM 5.2 cm LA Ao Ratio MM 1.4 AV Cusp Separation MM 2.3 cm DOPPLER MV Area PHT 4.1 cm??? Mitral E Point Velocity 78.7 cm/s Mitral A Point Velocity 48.9 cm/s Mitral E to A Ratio 1.6 MV Deceleration Time 183.9 ms TR Peak Velocity 239.5 cm/s TR Peak Gradient 22.9 mmHg Right Atrial Pressure 20.0 mmHg Pulmonary Artery Systolic Pressu 42.9 mmHg Right Ventricular Systolic Press 42.9 mmHg FINDINGS Left Ventricle Left ventricular ejection fraction is estimated at 30-35 %. Moderately reduced global left ventricular systolic function. Left ventricular cavity size normal. Left ventricular wall thickness normal. Right Ventricle Normal right ventricular size. Mild pulmonary hypertension. Reduced right ventricular global systolic function. Right Atrium Moderate right atrial dilatation. Left Atrium Moderately increased left atrial diameter. Moderately increased left atrial volume. Mildly increased left atrial area. Mitral Valve Structurally normal mitral valve. Mild to moderate mitral regurgitation. No mitral stenosis. Aortic Valve Trileaflet aortic valve. No aortic valve stenosis or regurgitation. Tricuspid Valve Structurally normal tricuspid valve. Mild to moderate tricuspid regurgitation. No tricuspid stenosis. Pulmonic Valve Structurally normal pulmonic valve. Trace pulmonic regurgitation. No pulmonic stenosis. Pericardium Small pericardial effusion. Aorta Mild aortic dilatation at the level of the sinuses of valsalva (root). CONCLUSIONS Impaired LV function. The EF is 30 to 35% Mild to moderate mitral and tricuspid regurgitation Small pericardial effusion Mild pulmonary hypertension Mild aortic dilatation at the level of sinus of Valsalva Previewed by: Dr. Andrew Stiles MD (Electronically Signed) Final Date: 20 September 2024 11:10
[2024-09-20 11:54] LABS: Glucose,Whole Blood 217 mg/dL (70-110)
--- NOTE | 2024-09-20 12:39 | P.PN ---
Subjective Progress Note Date: 09/20/24 Principal diagnosis: Reason for follow-up is right lower extremity wound Patient is a 43-year-old male with a past medical history significant for atrial fibrillation coronary disease diabetes mellitus hypertension hyperlipidemia in this patient also have a history of necrotizing infection to the right leg requiring multiple surgeries has completed course of IV antibiotic for his ESBL infection and was on oral Cipro and Bactrim with a recent culture positive for Pseudomonas and MRSA presented to hospital with weakness and worsening swelling. On today's evaluation that is 09/20/2024, the patient continues to be afebrile, the patient is on room air and breathing comfortably, the Pt denies having any chest pain or cough, the patient denies having any abdominal pain no vomiting or any diarrhea or any worsening pain to the right lower extremity mention he is making a lot of urine. Patient did have a creatinine 0.64 no CBC was done today blood cultures are pend ing Objective - Vital Signs Vital signs: Vital Signs Temp 97.4 F L 09/20/24 08:00 Pulse 72 09/20/24 09:47 Resp 20 09/20/24 08:00 BP 150/95 09/20/24 08:00 Pulse Ox 98 09/20/24 08:00 FiO2 Intake & Output 09/19/24 09/20/24 09/20/24 18:59 06:59 18:59 Intake Total 1560 480 Output Total 3200 1700 Balance 1560 -3200 -1220 Intake: Oral 1560 480 Output: Urine 3200 1700 Other: Voiding Method Urinal Urinal # Voids 6 - Exam GENERAL DESCRIPTION: Middle-age male lying in bed in no distress RESPIRATORY SYSTEM: Unlabored breathing , decreased breath sounds at bases HEART: S1 S2 regular rate and rhythm , ABDOMEN: Soft , no tenderness EXTREMITIES: Right leg wound is currently covered with a wound VAC - Labs CBC & Chem 7: 09/19/24 05:25 09/20/24 04:42 Labs: Abnormal Lab Results - Last 24 Hours (Table) 09/19/24 09/19/24 09/20/24 Range/Units 17:05 20:12 04:42 Creatinine 0.64 L (0.66-1.25) mg/dL POC Glucose (mg/dL) 183 H 191 H (70-110) mg/dL 09/20/24 09/20/24 Range/Units 06:56 11:52 Creatinine (0.66-1.25) mg/dL POC Glucose (mg/dL) 136 H 217 H (70-110) mg/dL Microbiology - Last 24 Hours (Table) 09/18/24 10:55 Blood Culture - Preliminary Blood Assessment and Plan (1) Leg wound, right Current Visit: Yes Status: Acute Code(s): S81.801A - UNSPECIFIED OPEN WOUND, RIGHT LOWER LEG, INITIAL ENCOUNTER SNOMED Code(s): 21814649842543488 (2) Wound cellulitis Current Visit: Yes Status: Acute Code(s): L03.90 - CELLULITIS, UNSPECIFIED SNOMED Code(s): 952868303 Plan: 1patient presented to hospital with increasing swelling pain and redness of the right lower extremity in this patient who did have a history of necrotizing infection to the right leg requiring multiple surgery currently dealing with a large wound with a recent outpatient culture positive for strep MRSA and Pseudomonas now presenting with worsening swelling and weakness did not have any fever or elevated white count 2patient to continue with vancomycin pharmacy to dose while watching his trough closely creatinine is normal, cefepime and Flagyl and continue supportive care Dictation was produced using [employer] dictation software. please excuse any grammatical, word or spelling errors. Time with Patient: Less than 30
--- NOTE | 2024-09-20 12:51 | P.PN ---
Subjective Progress Note Date: 09/20/24 patient is a 43-year-old gentleman past medical history significant for hyperlipidemia, diabetes mellitus, right lower extremity fasciotomy with wound VAC placement who presented the ER because of increasing weakness and swelling of right lower extremity. Patient had multiple surgeries on his right leg and initially was getting antibiotics for ESBL E. coli. Patient was following up outpatient at the wound care center and had a recent wound culture done which showed Pseudomonas, Streptococcus electrically and MRSA, and was prescribed oral antibiotics. Patient was noticing for the last week he has been getting more weak and has noticed that his lower extremities were getting swollen. Patient also complained abdominal distention. Patient denied any fever or chills. There was no complaint of chest pain or shortness of breath. Patient was seen in the wound care clinic and was sent to the ER Initial lab work done in the ER showed WBC 7.4, hemoglobin 10, platelet count 366, sodium 130, potassium 5.2, BUN 18, creatinine 0.58, glucose 300, lactate 1.5, calcium 8.9, magnesium 1.6, alk phos 382, proBNP 4440 albumin 3 X-ray tibia and fibula showed no acute osseous abnormality, soft tissue changes in the medial right foreleg Chest x-ray done in the ER showed no acute cardiopulmonary process Patient admitted to internal medicine service REVIEW OF SYSTEMS: CONSTITUTIONAL: No fever, no malaise,. CARDIOVASCULAR: No chest pain, no palpitations, no syncope. PULMONARY: No shortness of breath, no cough, GASTROINTESTINAL: No diarrhea, no nausea, no vomiting, no abdominal pain. NEUROLOGICAL: No headaches, no weakness, PHYSICAL EXAMINATION: GENERAL: The patient is alert and oriented x3, not in any acute distress. Well developed, well nourished. HEENT: Pupils are round and equally reacting to light. EOMI. No scleral icterus. No conjunctival pallor. Normocephalic, atraumatic. No pharyngeal erythema. No thyromegaly. CARDIOVASCULAR: S1 and S2 present. No murmurs, rubs, or gallops. PULMONARY: Chest is clear to auscultation, no wheezing or crackles. ABDOMEN: Distended, normoactive bowel sounds. No palpable organomegaly. MUSCULOSKELETAL: No joint abnormality EXTREMITIES: Right lower extremity wound VAC seen, 2. Scrotal edema improved ,2+ pitting edema lower extremity NEUROLOGICAL: Gross neurological examination did not reveal any focal deficits. SKIN: No rashes. Assessment and plan Right lower extremity cellulitis Chronic right leg wound with wound VAC Generalized anasarca Insulin-dependent diabetes mellitus Hypertension Hyperlipidemia Atrial fibrillation Monitor vital signs Monitor CBC Monitor CMP Continue telemetry monitoring Follow-up on blood cultures Follow-up on wound cultures Continue wound care Strict I's and O's, daily weights, IV Lasix40 mg every 12 Continue IV cefepime, Flagyl, vancomycin Cardiology following ID following Labs and medication were reviewed.. Continue same treatment. Continue with symptomatic treatment. Resume home medication. Monitor labs and vitals. DVT and GI prophylaxis. Further recommendations as per clinical course of the patient Dictation was produced using [employer] dictation software. please excuse any grammatical, word or spelling errors. Objective - Vital Signs Vital signs: Vital Signs Temp 98.1 F 09/20/24 12:42 Pulse 68 09/20/24 12:42 Resp 16 09/20/24 12:42 BP 154/82 09/20/24 12:42 Pulse Ox 96 09/20/24 12:42 FiO2 Intake & Output 09/19/24 09/20/24 09/20/24 18:59 06:59 18:59 Intake Total 1560 480 Output Total 3200 1700 Balance 1560 -3200 -1220 Intake: Oral 1560 480 Output: Urine 3200 1700 Other: Voiding Method Urinal Urinal # Voids 6 - Labs CBC & Chem 7: 09/19/24 05:25 09/20/24 04:42 Labs: Abnormal Lab Results - Last 24 Hours (Table) 09/19/24 09/19/24 09/20/24 Range/Units 17:05 20:12 04:42 Creatinine 0.64 L (0.66-1.25) mg/dL POC Glucose (mg/dL) 183 H 191 H (70-110) mg/dL 09/20/24 09/20/24 Range/Units 06:56 11:52 Creatinine (0.66-1.25) mg/dL POC Glucose (mg/dL) 136 H 217 H (70-110) mg/dL Microbiology - Last 24 Hours (Table) 09/18/24 10:55 Blood Culture - Preliminary Blood
--- NOTE | 2024-09-20 13:10 | P.PN ---
Subjective Progress Note Date: 09/20/24 Reason for Consult (text): CHF History of present illness: This is a 43-year-old male patient of Dr. Abad last seen in the office in January 2021 with past medical history of hypertension, uncontrolled diabetes mellitus type 2, obesity, family history of premature coronary artery disease, history of coronary artery disease status post ST MATILDA and PCI of the LAD and RCA, ischemic cardiomyopathy with EF 35 to 40%, chronic atrial fibrillation. We have been asked to evaluate the patient for CHF. Patient states that he has had a chronic wound on his right leg going on 8 to 9 months. He states he has had multiple surgeries done on the wounds by Dr. Wright. Patient had a PICC line placed 3 to 4 weeks ago and is currently on oral antibiotics in the outpatient setting. Patient has had increased weakness generalized. He has been following in the wound center on a regular basis and had a wound VAC in place. He states he has had increased edema all over his body. He denies increased shortness of breath. Blood pressure 129/82, heart rate 60, pulse ox 94% on room air. Patient has been started on IV Lasix 20 mg every 12 hours. -EKG: None -Chest x-ray: No acute process. Cardiomegaly. -Laboratory studies: WBC 7.6, hemoglobin 8.5 electrolytes are normal. Renal function normal with BUN 16 creatinine 0.8. Hemoglobin A1c 13.3. Alkaline phos phatase 383. proBNP 4440. -Home cardiac medications: Eliquis 5 mg twice daily, aspirin 81 mg daily, atorvastatin 80 mg daily, Coreg 25 mg twice daily, Nitrostat. -Echocardiogram and 2020 revealed EF of 45 to 50%, mild concentric left ventricular hypertrophy, septal hypokinesis. Right ventricle is mild to moderately enlarged. LA is moderately dilated at 34 to 39 mL/M2, mild mitral regurgitation, mild tricuspid regurgitation. 09/20 Patient seen and examined. Patient continues to have a significant amount of edema despite diuresing well. He has been maintained on IV Lasix 40 mg every 12 hours. Patient has a negative fluid balance. No repeat weights obtained. Creatinine 0.64. EKG sinus rhythm with no acute ST changes. Echocardiogram reveals EF 30 to 35%, mild to moderate mitral and tricuspid regurgitation, small pericardial effusion, mild pulmonary hypertension, mild aortic dilatation at the level of sinus of Valsalva. Physical examination: Gen: This is an obese 43-year-old male in no acute respiratory distress. VS: reviewed HEENT: Head is atraumatic, normocephalic. Pupils equal, round. Sclerae is anicteric. NECK: Supple. No JVD. LUNGS: Clear to auscultation. No wheezes or rhonchi. No intercostal retractions. HEART: Regular rate and rhythm. No murmur. ABDOMEN: Soft No tenderness. EXTREMITIES: 3+ lower extremity pitting edema. Dressing in place to the right leg and foot wounds NEUROLOGICAL: Patient is awake, alert and oriented x3. Assessment: Right lower extremity wounds, chronic, failed outpatient treatment Acute on chronic heart failure Chronic atrial fibrillation History of coronary artery disease status post NSTEMI and PCI of the LAD and RCA Ischemic cardiomyopathy with previous EF of 35 to 40% Hypertension Uncontrolled diabetes with A1c of 13 Obesity with BMI of 34 Noncompliance with follow-up Plan: Continue patient's home cardiac medications Continue IV Lasix 40 mg every 12 hours Monitor EDIN, daily weights, electrolytes and renal function Further recommendations to follow based upon clinical course Nurse practitioner note has been reviewed, I agree with documented findings and plan of care. Patient was seen and examined. Objective - Vital Signs Vital signs: Vital Signs Temp 97.4 F L 09/20/24 08:00 Pulse 72 09/20/24 09:47 Resp 20 09/20/24 08:00 BP 150/95 09/20/24 08:00 Pulse Ox 98 09/20/24 08:00 FiO2 Intake & Output 09/19/24 09/20/24 09/20/24 18:59 06:59 18:59 Intake Total 1560 480 Output Total 3200 Balance 1560 -3200 480 Intake: Oral 1560 480 Output: Urine 3200 Other: Voiding Method Urinal Urinal # Voids 6 - Labs CBC & Chem 7: 09/19/24 05:25 09/20/24 04:42 Labs: Abnormal Lab Results - Last 24 Hours (Table) 09/19/24 09/19/24 09/19/24 Range/Units 12:07 17:05 20:12 Creatinine (0.66-1.25) mg/dL POC Glucose (mg/dL) 215 H 183 H 191 H (70-110) mg/dL 02/21/25 02/21/25 Range/Units 04:42 06:56 Creatinine 0.64 L (0.66-1.25) mg/dL POC Glucose (mg/dL) 136 H (70-110) mg/dL Microbiology - Last 24 Hours (Table) 09/18/24 10:55 Blood Culture - Preliminary Blood
[2024-09-20 13:13] VITALS: BMI 34.3
[2024-09-20 13:19] LABS: ALT 8 U/L (4-49); AST 15 U/L (17-59); African American GFR (CKD) >90 (>60 ml/min/1.73 sqM); Albumin 2.3 g/dL (3.5-5.0); Albumin/Globulin Ratio 0.7; Alkaline Phosphatase 301 U/L (38-126); Anion Gap 6 mmol/L; Blood Urea Nitrogen 18 mg/dL (9-20); Calcium 8.1 mg/dL (8.4-10.2); Carbon Dioxide 28 mmol/L (22-30); Chloride 98 mmol/L (98-107); Globulin 3.2 g/dL; Glucose 143 mg/dL (74-99); Non-African American GFR(CKD) >90 (>60 ml/min/1.73 sqM); Potassium 3.8 mmol/L (3.5-5.1); Sodium 132 mmol/L (137-145); Total Bilirubin 0.5 mg/dL (0.2-1.3); Total Protein 5.5 g/dL (6.3-8.2)
[2024-09-20 17:05] LABS: Glucose,Whole Blood 248 mg/dL (70-110)
[2024-09-20 20:28] LABS: Glucose,Whole Blood 207 mg/dL (70-110)
[2024-09-21 07:27] LABS: Glucose,Whole Blood 295 mg/dL (70-110)
[2024-09-21 09:57] LABS: Basophils # (A) 0.09 X 10*3/uL (0.00-0.10); Basophils % (A) 1.3 %; Eosinophils # (A) 0.52 X 10*3/uL (0.04-0.35); Eosinophils % (A) 7.5 %; HCT 26.8 % (39.6-50.0); Lymphocytes % (A) 14.5 %; MCH 20.4 pg (27.0-32.0); MCHC 29.9 g/dL (32.0-37.0); MCV 68.4 FL (80.0-97.0); Mean Platelet Volume 9.9 FL (9.5-12.2); Monocytes # (A) 0.88 X 10*3/uL (0.20-1.00); Monocytes % (A) 12.7 %; NRBC Per 100 WBC 0 X 10*3/uL (0.00-0.01); Neutrophils % (A) 63.7 %; Platelet Count 331 X 10*3/uL (140-440); RBC 3.92 X 10*6/uL (4.40-5.60); RDW 17.5 % (11.5-14.5); WBC 6.91 X 10*3/uL (4.50-10.00)
[2024-09-21 10:30] LABS: ALT 8 U/L (10-49); AST 16 U/L (14-35); Albumin 2.5 g/dL (3.8-4.9); Albumin/Globulin Ratio 0.83 Ratio (1.60-3.17); Alkaline Phosphatase 345 U/L (41-126); BUN/Creat Ratio 24.43 Ratio (12.00-20.00); Blood Urea Nitrogen 17.1 mg/dL (9.0-27.0); Calcium 7.8 mg/dL (8.7-10.3); Carbon Dioxide 27.5 mmol/L (21.6-31.8); Chloride 100 mmol/L (96-109); Glucose 245 mg/dL (70-110); Potassium 3.8 mmol/L (3.5-5.5); Sodium 136 mmol/L (135-145); Total Bilirubin 0.4 mg/dL (0.3-1.2); Total Protein 5.5 g/dL (6.2-8.2)
[2024-09-21 11:23] LABS: African American GFR (CKD) >90 (>60 ml/min/1.73 sqM); Non-African American GFR(CKD) >90 (>60 ml/min/1.73 sqM)
[2024-09-21 12:21] LABS: Glucose,Whole Blood 262 mg/dL (70-110)
--- NOTE | 2024-09-21 12:29 | P.PN ---
Subjective Progress Note Date: 09/21/24 Principal diagnosis: Reason for follow-up is right lower extremity wound Patient is a 43-year-old male with a past medical history significant for atrial fibrillation coronary disease diabetes mellitus hypertension hyperlipidemia in this patient also have a history of necrotizing infection to the right leg requiring multiple surgeries has completed course of IV antibiotic for his ESBL infection and was on oral Cipro and Bactrim with a recent culture positive for Pseudomonas and MRSA presented to hospital with weakness and worsening swelling. On today's evaluation that is 09/21/2024, patient did not have any fever and denies any chills, patient is breathing comfortably on room air, patient with no chest pain or cough patient did not have any abdominal pain nausea vomiting or any loose stools swelling to lower extremity has decreased and denies significant pain to the right leg wound. Patient did have white count 6.1, creatinine 0.7 Vanco trough is 18.9 blood culture have been negative Objective - Vital Signs Vital signs: Vital Signs Temp 97.9 F 09/21/24 07:05 Pulse 83 09/21/24 07:05 Resp 18 09/21/24 07:05 BP 119/65 09/21/24 07:05 Pulse Ox 96 09/21/24 07:05 FiO2 Intake & Output 09/20/24 09/21/24 09/21/24 18:59 06:59 18:59 Intake Total 480 Output Total 2300 1700 1700 Balance -1820 -1700 -1700 Weight 124.738 kg Intake: Oral 480 Output: Urine 2300 1700 1700 Other: Voiding Method Urinal # Bowel Movements 1 - Exam GENERAL DESCRIPTION: Middle-age male lying in bed in no distress RESPIRATORY SYSTEM: Unlabored breathing , decreased breath sounds at bases HEART: S1 S2 regular rate and rhythm , ABDOMEN: Soft , no tenderness EXTREMITIES: Right leg wound is currently covered with a wound VAC - Labs CBC & Chem 7: 09/21/24 05:15 09/21/24 10:30 Labs: Abnormal Lab Results - Last 24 Hours (Table) 09/20/24 09/20/24 09/20/24 Range/Units 04:42 17:03 20:25 RBC (4.40-5.60) X 10*6/uL Hgb (13.0-17.0) g/dL Hct (39.6-50.0) % MCV (80.0-97.0) FL MCH (27.0-32.0) pg MCHC (32.0-37.0) g/dL RDW (11.5-14.5) % Eosinophils # (0.04-0.35) X 10*3/uL Sodium 132 L (137-145) mmol/L BUN/Creatinine Ratio (12.00-20.00) Ratio Glucose 143 H (74-99) mg/dL POC Glucose (mg/dL) 248 H 207 H (70-110) mg/dL Calcium 8.1 L (8.4-10.2) mg/dL AST 15 L (17-59) U/L ALT (10-49) U/L Alkaline Phosphatase 301 H (38-126) U/L Total Protein 5.5 L (6.3-8.2) g/dL Albumin 2.3 L (3.5-5.0) g/dL Albumin/Globulin Ratio (1.60-3.17) Ratio 09/21/24 09/21/24 09/21/24 Range/Units 05:15 05:15 07:25 RBC 3.92 L (4.40-5.60) X 10*6/uL Hgb 8.0 L (13.0-17.0) g/dL Hct 26.8 L (39.6-50.0) % MCV 68.4 L (80.0-97.0) FL MCH 20.4 L (27.0-32.0) pg MCHC 29.9 L (32.0-37.0) g/dL RDW 17.5 H (11.5-14.5) % Eosinophils # 0.52 H (0.04-0.35) X 10*3/uL Sodium (137-145) mmol/L BUN/Creatinine Ratio 24.43 H (12.00-20.00) Ratio Glucose 245 H (74-99) mg/dL POC Glucose (mg/dL) 295 H (70-110) mg/dL Calcium 7.8 L (8.4-10.2) mg/dL AST (17-59) U/L ALT 8 L (10-49) U/L Alkaline Phosphatase 345 H (38-126) U/L Total Protein 5.5 L (6.3-8.2) g/dL Albumin 2.5 L (3.5-5.0) g/dL Albumin/Globulin Ratio 0.83 L (1.60-3.17) Ratio 09/21/24 Range/Units 12:20 RBC (4.40-5.60) X 10*6/uL Hgb (13.0-17.0) g/dL Hct (39.6-50.0) % MCV (80.0-97.0) FL MCH (27.0-32.0) pg MCHC (32.0-37.0) g/dL RDW (11.5-14.5) % Eosinophils # (0.04-0.35) X 10*3/uL Sodium (137-145) mmol/L BUN/Creatinine Ratio (12.00-20.00) Ratio Glucose (74-99) mg/dL POC Glucose (mg/dL) 262 H (70-110) mg/dL Calcium (8.4-10.2) mg/dL AST (17-59) U/L ALT (10-49) U/L Alkaline Phosphatase (38-126) U/L Total Protein (6.3-8.2) g/dL Albumin (3.5-5.0) g/dL Albumin/Globulin Ratio (1.60-3.17) Ratio Microbiology - Last 24 Hours (Table) 09/18/24 10:55 Blood Culture - Preliminary Blood Assessment and Plan (1) Leg wound, right Current Visit: Yes Status: Acute Code(s): S81.801A - UNSPECIFIED OPEN WOUND, RIGHT LOWER LEG, INITIAL ENCOUNTER SNOMED Code(s): 20657461166923032 (2) Wound cellulitis Current Visit: Yes Status: Acute Code(s): L03.90 - CELLULITIS, UNSPECIFIED SNOMED Code(s): 174355870 Plan: 1patient presented to hospital with increasing swelling pain and redness of the right lower extremity in this patient who did have a history of necrotizing infection to the right leg requiring multiple surgery currently dealing with a large wound with a recent outpatient culture positive for strep MRSA and Pseu domonas now presenting with worsening swelling and weakness possibly cardiac etiology and is being monitored by cardiology 2patient is afebrile, white count is normal to continue with vancomycin phar chace to dose along with cefepime and Flagyl and monitor clinical course closely Dictation was produced using [employer] dictation software. please excuse any grammatical, word or spelling errors. Time with Patient: Less than 30
[2024-09-21] MEDS: VANCOMYCIN TROUGH DUE 1 EACH MISC MISCELLANE ONE (12:45)
--- NOTE | 2024-09-21 13:20 | P.PN ---
Subjective Progress Note Date: 09/21/24 patient is a 43-year-old gentleman past medical history significant for hyperlipidemia, diabetes mellitus, right lower extremity fasciotomy with wound VAC placement who presented the ER because of increasing weakness and swelling of right lower extremity. Patient had multiple surgeries on his right leg and initially was getting antibiotics for ESBL E. coli. Patient was following up outpatient at the wound care center and had a recent wound culture done which showed Pseudomonas, Streptococcus electrically and MRSA, and was prescribed oral antibiotics. Patient was noticing for the last week he has been getting more weak and has noticed that his lower extremities were getting swollen. Patient also complained abdominal distention. Patient denied any fever or chills. There was no complaint of chest pain or shortness of breath. Patient was seen in the wound care clinic and was sent to the ER Initial lab work done in the ER showed WBC 7.4, hemoglobin 10, platelet count 366, sodium 130, potassium 5.2, BUN 18, creatinine 0.58, glucose 300, lactate 1.5, calcium 8.9, magnesium 1.6, alk phos 382, proBNP 4440 albumin 3 X-ray tibia and fibula showed no acute osseous abnormality, soft tissue changes in the medial right foreleg Chest x-ray done in the ER showed no acute cardiopulmonary process Patient admitted to internal medicine service 09/21. Patient seen and examined. Swelling of lower extremity has improved, still has groin swelling. 2D echo done showed impaired LV function of 35%, mild to moderate mitral and tricuspid regurg with small pericardial effusion and mild pulmonary hypertension REVIEW OF SYSTEMS: CONSTITUTIONAL: No fever, no malaise,. CARDIOVASCULAR: No chest pain, no palpitations, no syncope. PULMONARY: No shortness of breath, no cough, GASTROINTESTINAL: No diarrhea, no nausea, no vomiting, no abdominal pain. NEUROLOGICAL: No headaches, no weakness, PHYSICAL EXAMINATION: GENERAL: The patient is alert and oriented x3, not in any acute distress. Well developed, well nourished. HEENT: Pupils are round and equally reacting to light. EOMI. No scleral icterus. No conjunctival pallor. Normocephalic, atraumatic. No pharyngeal erythema. No thyromegaly. CARDIOVASCULAR: S1 and S2 present. No murmurs, rubs, or gallops. PULMONARY: Chest is clear to auscultation, no wheezing or crackles. ABDOMEN: Distended, normoactive bowel sounds. No palpable organomegaly. MUSCULOSKELETAL: No joint abnormality EXTREMITIES: Right lower extremity wound VAC seen, 2. Scrotal edema improved ,2+ pitting edema lower extremity NEUROLOGICAL: Gross neurological examination did not reveal any focal deficits. SKIN: No rashes. Assessment and plan Right lower extremity cellulitis Chronic right leg wound with wound VAC Cardiomyopathy Acute on chronic systolic CHF Generalized anasarca Insulin-dependent diabetes mellitus Hypertension Hyperlipidemia Atrial fibrillation Monitor vital signs Monitor CBC Monitor CMP Continue telemetry monitoring Follow-up on blood cultures Follow-up on wound cultures Continue wound care 2D echo done showed impaired LV function of 35%, mild to moderate mitral and tricuspid regurg with small pericardial effusion and mild pulmonary hypertension Strict I's and O's, daily weights, IV Lasix40 mg every 12 Continue IV cefepime, Flagyl, vancomycin Cardiology following ID following Labs and medication were reviewed.. Continue same treatment. Continue with symptomatic treatment. Resume home medication. Monitor labs and vitals. DVT a nd GI prophylaxis. Further recommendations as per clinical course of the patient Dictation was produced using [employer] dictation software. please excuse any grammatical, word or spelling errors. Objective - Vital Signs Vital signs: Vital Signs Temp 98.4 F 09/21/24 12:45 Pulse 75 09/21/24 12:45 Resp 18 09/21/24 12:45 BP 108/65 09/21/24 12:45 Pulse Ox 98 09/21/24 12:45 FiO2 Intake & Output 09/20/24 09/21/24 09/21/24 18:59 06:59 18:59 Intake Total 480 Output Total 2300 1700 1700 Balance -1820 -1700 -1700 Weight 124.738 kg Intake: Oral 480 Output: Urine 2300 1700 1700 Other: Voiding Method Urinal # Bowel Movements 1 - Labs CBC & Chem 7: 09/21/24 05:15 09/21/24 10:30 Labs: Abnormal Lab Results - Last 24 Hours (Table) 09/20/24 09/20/24 09/20/24 Range/Units 04:42 17:03 20:25 RBC (4.40-5.60) X 10*6/uL Hgb (13.0-17.0) g/dL Hct (39.6-50.0) % MCV (80.0-97.0) FL MCH (27.0-32.0) pg MCHC (32.0-37.0) g/dL RDW (11.5-14.5) % Eosinophils # (0.04-0.35) X 10*3/uL Sodium 132 L (137-145) mmol/L BUN/Creatinine Ratio (12.00-20.00) Ratio Glucose 143 H (74-99) mg/dL POC Glucose (mg/dL) 248 H 207 H (70-110) mg/dL Calcium 8.1 L (8.4-10.2) mg/dL AST 15 L (17-59) U/L ALT (10-49) U/L Alkaline Phosphatase 301 H (38-126) U/L Total Protein 5.5 L (6.3-8.2) g/dL Albumin 2.3 L (3.5-5.0) g/dL Albumin/Globulin Ratio (1.60-3.17) Ratio 09/21/24 09/21/24 09/21/24 Range/Units 05:15 05:15 07:25 RBC 3.92 L (4.40-5.60) X 10*6/uL Hgb 8.0 L (13.0-17.0) g/dL Hct 26.8 L (39.6-50.0) % MCV 68.4 L (80.0-97.0) FL MCH 20.4 L (27.0-32.0) pg MCHC 29.9 L (32.0-37.0) g/dL RDW 17.5 H (11.5-14.5) % Eosinophils # 0.52 H (0.04-0.35) X 10*3/uL Sodium (137-145) mmol/L BUN/Creatinine Ratio 24.43 H (12.00-20.00) Ratio Glucose 245 H (74-99) mg/dL POC Glucose (mg/dL) 295 H (70-110) mg/dL Calcium 7.8 L (8.4-10.2) mg/dL AST (17-59) U/L ALT 8 L (10-49) U/L Alkaline Phosphatase 345 H (38-126) U/L Total Protein 5.5 L (6.3-8.2) g/dL Albumin 2.5 L (3.5-5.0) g/dL Albumin/Globulin Ratio 0.83 L (1.60-3.17) Ratio 09/21/24 Range/Units 12:20 RBC (4.40-5.60) X 10*6/uL Hgb (13.0-17.0) g/dL Hct (39.6-50.0) % MCV (80.0-97.0) FL MCH (27.0-32.0) pg MCHC (32.0-37.0) g/dL RDW (11.5-14.5) % Eosinophils # (0.04-0.35) X 10*3/uL Sodium (137-145) mmol/L BUN/Creatinine Ratio (12.00-20.00) Ratio Glucose (74-99) mg/dL POC Glucose (mg/dL) 262 H (70-110) mg/dL Calcium (8.4-10.2) mg/dL AST (17-59) U/L ALT (10-49) U/L Alkaline Phosphatase (38-126) U/L Total Protein (6.3-8.2) g/dL Albumin (3.5-5.0) g/dL Albumin/Globulin Ratio (1.60-3.17) Ratio Microbiology - Last 24 Hours (Table) 09/18/24 10:55 Blood Culture - Preliminary Blood
--- NOTE | 2024-09-21 14:10 | P.PN ---
Subjective Progress Note Date: 09/21/24 This is a 43-year-old male patient of Dr. Abad last seen in the office in January 2021 with past medical history of hypertension, uncontrolled diabetes mellitus type 2, obesity, family history of premature coronary artery disease, history of coronary artery disease status post ST MATILDA and PCI of the LAD and RCA, ischemic cardiomyopathy with EF 35 to 40%, chronic atrial fibrillation. We have been asked to evaluate the patient for CHF. Patient states that he has had a chronic wound on his right leg going on 8 to 9 months. He states he has had multiple surgeries done on the wounds by Dr. Wright. Patient had a PICC line placed 3 to 4 weeks ago and is currently on oral antibiotics in the outpatient s etting. Patient has had increased weakness generalized. He has been following in the wound center on a regular basis and had a wound VAC in place. He states he has had increased edema all over his body. He denies increased shortness of breath. Blood pressure 129/82, heart rate 60, pulse ox 94% on room air. Patient has been started on IV Lasix 20 mg every 12 hours. -EKG: None -Chest x-ray: No acute process. Cardiomegaly. -Laboratory studies: WBC 7.6, hemoglobin 8.5 electrolytes are normal. Renal function normal with BUN 16 creatinine 0.8. Hemoglobin A1c 13.3. Alkaline phosphatase 383. proBNP 4440. -Home cardiac medications: Eliquis 5 mg twice daily, aspirin 81 mg daily, atorvastatin 80 mg daily, Coreg 25 mg twice daily, Nitrostat. -Echocardiogram this admission revealed EF 30 to 35%, mild to moderate mitral and tricuspid regurgitation, small pericardial effusion, mild pulmonary hypertension, mild aortic dilatation at the level of sinus of Valsalva. 09/21/2024 Patient was seen and examined resting comfortably in bed. Continues to have edema, mildly improving. Wound VAC is in place. Hemoglobin 8.0, renal function is stable. Remains in a negative fluid balance Physical examination: Gen: This is an obese 43-year-old male in no acute respiratory distress. VS: reviewed HEENT: Head is atraumatic, normocephalic. Pupils equal, round. Sclerae is anicteric. NECK: Supple. No JVD. LUNGS: Clear to auscultation. No wheezes or rhonchi. No intercostal retractions. HEART: Regular rate and rhythm. No murmur. ABDOMEN: Soft No tenderness. EXTREMITIES: 3+ lower extremity pitting edema. Dressing and wound VAC in place to the right leg and foot wounds NEUROLOGICAL: Patient is awake, alert and oriented x3. Assessment: Right lower extremity wounds, chronic, failed outpatient treatment Acute on chronic heart failure Chronic atrial fibrillation History of coronary artery disease status post NSTEMI and PCI of the LAD and RCA Ischemic cardiomyopathy with previous EF of 35 to 40% Hypertension Uncontrolled diabetes with A1c of 13 Obesity with BMI of 34 Noncompliance with follow-up Plan: We will add low-dose LESLIE inhibitor, Aldactone and Farxiga. Continue IV Lasix 40 mg every 12 hours Monitor I&O, daily weights, electrolytes and renal function We will check NT proBNP tomorrow If patient develops issues with hypotension we will consider switching from carvedilol to metoprolol succinate. Further recommendations to follow based upon clinical course Nurse practitioner note has been reviewed, I agree with documented findings and plan of care. Patient was seen and examined. Objective - Vital Signs Vital signs: Vital Signs Temp 98.4 F 09/21/24 12:45 Pulse 75 09/21/24 12:45 Resp 18 09/21/24 12:45 BP 108/65 09/21/24 12:45 Pulse Ox 98 09/21/24 12:45 FiO2 Intake & Output 09/20/24 09/21/24 09/21/24 18:59 06:59 18:59 Intake Total 480 Output Total 2300 1700 1700 Balance -1820 -1700 -1700 Weight 124.738 kg Intake: Oral 480 Output: Urine 2300 1700 1700 Other: Voiding Method Urinal Urinal # Bowel Movements 1 - Labs CBC & Chem 7: 09/21/24 05:15 09/21/24 10:30 Labs: Abnormal Lab Results - Last 24 Hours (Table) 09/20/24 09/20/24 09/21/24 Range/Units 17:03 20: 05:15 RBC 3.92 L (4.40-5.60) X 10*6/uL Hgb 8.0 L (13.0-17.0) g/dL Hct 26.8 L (39.6-50.0) % MCV 68.4 L (80.0-97.0) FL MCH 20.4 L (27.0-32.0) pg MCHC 29.9 L (32.0-37.0) g/dL RDW 17.5 H (11.5-14.5) % Eosinophils # 0.52 H (0.04-0.35) X 10*3/uL BUN/Creatinine Ratio (12.00-20.00) Ratio Glucose (70-110) mg/dL POC Glucose (mg/dL) 248 H 207 H (70-110) mg/dL Calcium (8.7-10.3) mg/dL ALT (10-49) U/L Alkaline Phosphatase (41-126) U/L Total Protein (6.2-8.2) g/dL Albumin (3.8-4.9) g/dL Albumin/Globulin Ratio (1.60-3.17) Ratio 09/21/24 09/21/24 09/21/24 Range/Units 05:15 07:25 12:20 RBC (4.40-5.60) X 10*6/uL Hgb (13.0-17.0) g/dL Hct (39.6-50.0) % MCV (80.0-97.0) FL MCH (27.0-32.0) pg MCHC (32.0-37.0) g/dL RDW (11.5-14.5) % Eosinophils # (0.04-0.35) X 10*3/uL BUN/Creatinine Ratio 24.43 H (12.00-20.00) Ratio Glucose 245 H (70-110) mg/dL POC Glucose (mg/dL) 295 H 262 H (70-110) mg/dL Calcium 7.8 L (8.7-10.3) mg/dL ALT 8 L (10-49) U/L Alkaline Phosphatase 345 H (41-126) U/L Total Protein 5.5 L (6.2-8.2) g/dL Albumin 2.5 L (3.8-4.9) g/dL Albumin/Globulin Ratio 0.83 L (1.60-3.17) Ratio Microbiology - Last 24 Hours (Table) 09/18/24 10:55 Blood Culture - Preliminary Blood
[2024-09-21] MEDS: SPIRONOLACTONE 25 MG TAB PO SCH (16:50)
[2024-09-21] MEDS: DAPAGLIFLOZIN PROPANEDIOL 10 MG TABLET PO SCH (16:50)
[2024-09-21 16:57] LABS: Glucose,Whole Blood 216 mg/dL (70-110)
[2024-09-21 20:33] LABS: Glucose,Whole Blood 103 mg/dL (70-110)
[2024-09-22 06:12] LABS: ALT 9 U/L (4-49); AST 18 U/L (17-59); African American GFR (CKD) >90 (>60 ml/min/1.73 sqM); Albumin 2.5 g/dL (3.5-5.0); Albumin/Globulin Ratio 0.8; Alkaline Phosphatase 322 U/L (38-126); Anion Gap 5 mmol/L; Blood Urea Nitrogen 18 mg/dL (9-20); Calcium 7.9 mg/dL (8.4-10.2); Carbon Dioxide 30 mmol/L (22-30); Chloride 97 mmol/L (98-107); Globulin 3.1 g/dL; Glucose 103 mg/dL (74-99); Non-African American GFR(CKD) >90 (>60 ml/min/1.73 sqM); Potassium 3.8 mmol/L (3.5-5.1); Sodium 132 mmol/L (137-145); Total Bilirubin 0.6 mg/dL (0.2-1.3); Total Protein 5.6 g/dL (6.3-8.2)
[2024-09-22 07:33] LABS: Glucose,Whole Blood 104 mg/dL (70-110)
[2024-09-22 09:32] LABS: Basophils # (A) 0.11 X 10*3/uL (0.00-0.10); Basophils % (A) 1.9 %; Eosinophils # (A) 0.48 X 10*3/uL (0.04-0.35); Eosinophils % (A) 8.2 %; HCT 27.3 % (39.6-50.0); Lymphocytes # (A) 1.29 X 10*3/uL (0.90-5.00); Lymphocytes % (A) 22.2 %; MCH 20.1 pg (27.0-32.0); MCHC 29.3 g/dL (32.0-37.0); MCV 68.4 FL (80.0-97.0); Mean Platelet Volume 10.3 FL (9.5-12.2); Monocytes # (A) 0.93 X 10*3/uL (0.20-1.00); NRBC Per 100 WBC 0 X 10*3/uL (0.00-0.01); Neutrophils # (A) 2.99 X 10*3/uL (1.80-7.70); Neutrophils % (A) 51.4 %; Platelet Count 348 X 10*3/uL (140-440); RBC 3.99 X 10*6/uL (4.40-5.60); RDW 17.5 % (11.5-14.5); WBC 5.82 X 10*3/uL (4.50-10.00)
[2024-09-22 12:19] LABS: Glucose,Whole Blood 128 mg/dL (70-110)
--- NOTE | 2024-09-22 12:20 | P.PN ---
Subjective Progress Note Date: 09/22/24 This is a 43-year-old male patient of Dr. Abad last seen in the office in January 2021 with past medical history of hypertension, uncontrolled diabetes mellitus type 2, obesity, family history of premature coronary artery disease, history of coronary artery disease status post ST MATILDA and PCI of the LAD and RCA, ischemic cardiomyopathy with EF 35 to 40%, chronic atrial fibrillation. We have been asked to evaluate the patient for CHF. Patient states that he has had a chronic wound on his right leg going on 8 to 9 months. He states he has had multiple surgeries done on the wounds by Dr. Wright. Patient had a PICC line placed 3 to 4 weeks ago and is currently on oral antibiotics in the outpatient s etting. Patient has had increased weakness generalized. He has been following in the wound center on a regular basis and had a wound VAC in place. He states he has had increased edema all over his body. He denies increased shortness of breath. Blood pressure 129/82, heart rate 60, pulse ox 94% on room air. Patient has been started on IV Lasix 20 mg every 12 hours. -EKG: None -Chest x-ray: No acute process. Cardiomegaly. -Laboratory studies: WBC 7.6, hemoglobin 8.5 electrolytes are normal. Renal function normal with BUN 16 creatinine 0.8. Hemoglobin A1c 13.3. Alkaline phosphatase 383. proBNP 4440. -Home cardiac medications: Eliquis 5 mg twice daily, aspirin 81 mg daily, atorvastatin 80 mg daily, Coreg 25 mg twice daily, Nitrostat. -Echocardiogram this admission revealed EF 30 to 35%, mild to moderate mitral and tricuspid regurgitation, small pericardial effusion, mild pulmonary hypertension, mild aortic dilatation at the level of sinus of Valsalva. 09/21/2024 Patient was seen and examined resting comfortably in bed. Continues to have edema, mildly improving. Wound VAC is in place. Hemoglobin 8.0, renal function is stable. Remains in a negative fluid balance 09/22/24 Patient was seen and examined resting comfortably in bed. He feels his breathing and edema have mildly improved. Wound VAC remains in place. Globin is stable at 8 and kidney function remains stable. He remains on IV Lasix and continues to be in a negative fluid balance with good urine output. He feels somewhat nauseous today and feels it is related to his blood sugar being 104 which normally runs in the 400 range at home. Physical examination: Gen: This is an obese 43-year-old male in no acute respiratory distress. VS: reviewed HEENT: Head is atraumatic, normocephalic. Pupils equal, round. Sclerae is anicteric. NECK: Supple. No JVD. LUNGS: Clear to auscultation. No wheezes or rhonchi. No intercostal retractions. HEART: Regular rate and rhythm. No murmur. ABDOMEN: Soft No tenderness. EXTREMITIES: 3+ lower extremity pitting edema. Dressing and wound VAC in place to the right leg and foot wounds NEUROLOGICAL: Patient is awake, alert and oriented x3. Assessment: Right lower extremity wounds, chronic, failed outpatient treatment Acute on chronic heart failure Chronic atrial fibrillation History of coronary artery disease status post NSTEMI and PCI of the LAD and RCA Ischemic cardiomyopathy with previous EF of 35 to 40% Hypertension Uncontrolled diabetes with A1c of 13 Obesity with BMI of 34 Noncompliance with follow-up Plan: Medications were reviewed and we will continue the same Continue IV Lasix 40 mg every 12 hours Monitor I&O, daily weights, electrolytes and renal function NT proBNP is pending Discontinue as needed hydralazine If patient develops issues with hypotension we will consider switching from carvedilol to metoprolol succinate. Further recommendations to follow based upon clinical course Nurse practitioner note has been reviewed, I agree with documented findings and plan of care. Patient was seen and examined. Objective - Vital Signs Vital signs: Vital Signs Temp 98.7 F 09/22/24 07:39 Pulse 67 09/22/24 07:39 Resp 19 09/22/24 07:39 BP 137/95 09/22/24 07:39 Pulse Ox 97 09/22/24 07:39 FiO2 Intake & Output 09/21/24 09/22/24 09/22/24 18:59 06:59 18:59 Output Total 9262 968 4469 Balance -1700 -300 -1000 Output: Urine 0340 357 2408 Other: Voiding Method Urinal Urinal # Voids 1 # Bowel Movements 1 1 1 - Labs CBC & Chem 7: 09/22/24 05:23 09/22/24 05:23 Labs: Abnormal Lab Results - Last 24 Hours (Table) 09/21/24 09/21/24 09/22/24 Range/Units 12:20 16:55 05:23 RBC (4.40-5.60) X 10*6/uL Hgb (13.0-17.0) g/dL Hct (39.6-50.0) % MCV (80.0-97.0) FL MCH (27.0-32.0) pg MCHC (32.0-37.0) g/dL RDW (11.5-14.5) % Eosinophils # (0.04-0.35) X 10*3/uL Basophils # (0.00-0.10) X 10*3/uL Sodium 132 L (137-145) mmol/L Chloride 97 L (98-107) mmol/L Glucose 103 H (74-99) mg/dL POC Glucose (mg/dL) 262 H 216 H (70-110) mg/dL Calcium 7.9 L (8.4-10.2) mg/dL Alkaline Phosphatase 322 H (38-126) U/L Total Protein 5.6 L (6.3-8.2) g/dL Albumin 2.5 L (3.5-5.0) g/dL 09/22/24 Range/Units 05:23 RBC 3.99 L (4.40-5.60) X 10*6/uL Hgb 8.0 L (13.0-17.0) g/dL Hct 27.3 L (39.6-50.0) % MCV 68.4 L (80.0-97.0) FL MCH 20.1 L (27.0-32.0) pg MCHC 29.3 L (32.0-37.0) g/dL RDW 17.5 H (11.5-14.5) % Eosinophils # 0.48 H (0.04-0.35) X 10*3/uL Basophils # 0.11 H (0.00-0.10) X 10*3/uL Sodium (137-145) mmol/L Chloride (98-107) mmol/L Glucose (74-99) mg/dL POC Glucose (mg/dL) (70-110) mg/dL Calcium (8.4-10.2) mg/dL Alkaline Phosphatase (38-126) U/L Total Protein (6.3-8.2) g/dL Albumin (3.5-5.0) g/dL Microbiology - Last 24 Hours (Table) 09/18/24 10:55 Blood Culture - Preliminary Blood
--- NOTE | 2024-09-22 13:34 | P.PN ---
Subjective Progress Note Date: 09/22/24 patient is a 43-year-old gentleman past medical history significant for hyperlipidemia, diabetes mellitus, right lower extremity fasciotomy with wound VAC placement who presented the ER because of increasing weakness and swelling of right lower extremity. Patient had multiple surgeries on his right leg and initially was getting antibiotics for ESBL E. coli. Patient was following up outpatient at the wound care center and had a recent wound culture done which showed Pseudomonas, Streptococcus electrically and MRSA, and was prescribed oral antibiotics. Patient was noticing for the last week he has been getting more weak and has noticed that his lower extremities were getting swollen. Patient also complained abdominal distention. Patient denied any fever or chills. There was no complaint of chest pain or shortness of breath. Patient was seen in the wound care clinic and was sent to the ER Initial lab work done in the ER showed WBC 7.4, hemoglobin 10, platelet count 366, sodium 130, potassium 5.2, BUN 18, creatinine 0.58, glucose 300, lactate 1.5, calcium 8.9, magnesium 1.6, alk phos 382, proBNP 4440 albumin 3 X-ray tibia and fibula showed no acute osseous abnormality, soft tissue changes in the medial right foreleg Chest x-ray done in the ER showed no acute cardiopulmonary process Patient admitted to internal medicine service 09/21. Patient seen and examined. Swelling of lower extremity has improved, still has groin swelling. 2D echo done showed impaired LV function of 35%, mild to moderate mitral and tricuspid regurg with small pericardial effusion and mild pulmonary hypertension 09/22. Patient seen and examined. Swelling of lower extremities is improving. Denies any shortness of breath at rest. Vital signs stable. Blood work done showed WBC 5.82, hemoglobin 8, sodium 132, potassium 3.8, BUN 18, creatinine 0.70 proBNP 1882 REVIEW OF SYSTEMS: CONSTITUTIONAL: No fever, no malaise,. CARDIOVASCULAR: No chest pain, no palpitations, no syncope. PULMONARY: No shortness of breath, no cough, GASTROINTESTINAL: No diarrhea, no nausea, no vomiting, no abdominal pain. NEUROLOGICAL: No headaches, no weakness, PHYSICAL EXAMINATION: GENERAL: The patient is alert and oriented x3, not in any acute distress. Well developed, well nourished. HEENT: Pupils are round and equally reacting to light. EOMI. No scleral icterus. No conjunctival pallor. Normocephalic, atraumatic. No pharyngeal erythema. No thyromegaly. CARDIOVASCULAR: S1 and S2 present. No murmurs, rubs, or gallops. PULMONARY: Chest is clear to auscultation, no wheezing or crackles. ABDOMEN: Distended, normoactive bowel sounds. No palpable organomegaly. MUSCULOSKELETAL: No joint abnormality EXTREMITIES: Right lower extremity wound VAC seen, 2. Scrotal edema improved ,2+ pitting edema lower extremity NEUROLOGICAL: Gross neurological examination did not reveal any focal deficits. SKIN: No rashes. Assessment and plan Right lower extremity cellulitis Chronic right leg wound with wound VAC Cardiomyopathy Acute on chronic systolic CHF Generalized anasarca Insulin-dependent diabetes mellitus Hypertension Hyperlipidemia Atrial fibrillation Monitor vital signs Monitor CBC Monitor CMP Continue telemetry monitoring Follow-up on blood cultures Follow-up on wound cultures Continue wound care 2D echo done showed impaired LV function of 35%, mild to moderate mitral and tricuspid regurg with small pericardial effusion and mild pulmonary hypertension Strict I's and O's, daily weights, IV Lasix40 mg every 12 Continue IV cefepime, Flagyl, vancomycin Cardiology following ID following Labs and medication were reviewed.. Continue same treatment. Continue with symptomatic treatment. Resume home medication. Monitor labs and vitals. DVT and GI prophylaxis. Further recommendations as per clinical course of the patient Dictation was produced using [employer] dictation software. please excuse any grammatical, word or spelling errors. Objective - Vital Signs Vital signs: Vital Signs Temp 98.7 F 09/22/24 07:39 Pulse 67 09/22/24 07:39 Resp 19 09/22/24 07:39 BP 137/95 09/22/24 07:39 Pulse Ox 97 09/22/24 07:39 FiO2 Intake & Output 09/21/24 09/22/24 09/22/24 18:59 06:59 18:59 Output Total 1617 330 0126 Balance -1700 -300 -1000 Output: Urine 6210 808 6636 Other: Voiding Method Urinal Urinal # Voids 1 # Bowel Movements 1 1 1 - Labs CBC & Chem 7: 09/22/24 05:23 09/22/24 05:23 Labs: Abnormal Lab Results - Last 24 Hours (Table) 09/21/24 09/22/24 09/22/24 Range/Units 16:55 05:23 05:23 RBC 3.99 L (4.40-5.60) X 10*6/uL Hgb 8.0 L (13.0-17.0) g/dL Hct 27.3 L (39.6-50.0) % MCV 68.4 L (80.0-97.0) FL MCH 20.1 L (27.0-32.0) pg MCHC 29.3 L (32.0-37.0) g/dL RDW 17.5 H (11.5-14.5) % Eosinophils # 0.48 H (0.04-0.35) X 10*3/uL Basophils # 0.11 H (0.00-0.10) X 10*3/uL Sodium 132 L (137-145) mmol/L Chloride 97 L (98-107) mmol/L Glucose 103 H (74-99) mg/dL POC Glucose (mg/dL) 216 H (70-110) mg/dL Calcium 7.9 L (8.4-10.2) mg/dL Alkaline Phosphatase 322 H (38-126) U/L NT-Pro-B Natriuret Pep (0-125) pg/mL Total Protein 5.6 L (6.3-8.2) g/dL Albumin 2.5 L (3.5-5.0) g/dL 09/22/24 09/22/24 Range/Units 05:23 12:18 RBC (4.40-5.60) X 10*6/uL Hgb (13.0-17.0) g/dL Hct (39.6-50.0) % MCV (80.0-97.0) FL MCH (27.0-32.0) pg MCHC (32.0-37.0) g/dL RDW (11.5-14.5) % Eosinophils # (0.04-0.35) X 10*3/uL Basophils # (0.00-0.10) X 10*3/uL Sodium (137-145) mmol/L Chloride (98-107) mmol/L Glucose (74-99) mg/dL POC Glucose (mg/dL) 128 H (70-110) mg/dL Calcium (8.4-10.2) mg/dL Alkaline Phosphatase (38-126) U/L NT-Pro-B Natriuret Pep 1882 H (0-125) pg/mL Total Protein (6.3-8.2) g/dL Albumin (3.5-5.0) g/dL Microbiology - Last 24 Hours (Table) 09/18/24 10:55 Blood Culture - Preliminary Blood
[2024-09-22] MEDS: guaiFENesin SYRUP 100MG/5ML 200 MG/10 ML CUP PO PRN (14:07)
[2024-09-22] MEDS: ONDANSETRON 4 MG/2 ML VIAL IVP PRN (14:08)
--- NOTE | 2024-09-22 15:14 | P.PN ---
Subjective Progress Note Date: 09/22/24 Principal diagnosis: Reason for follow-up is right lower extremity wound Patient is a 43-year-old male with a past medical history significant for atrial fibrillation coronary disease diabetes mellitus hypertension hyperlipidemia in this patient also have a history of necrotizing infection to the right leg requiring multiple surgeries has completed course of IV antibiotic for his ESBL infection and was on oral Cipro and Bactrim with a recent culture positive for Pseudomonas and MRSA presented to hospital with weakness and worsening swelling. On today's evaluation that is 09/22/2024, Patient is afebrile patient is currently on room air and breathing comfortably, the patient denies any chest pain or cough, the patient denies any nausea vomiting did not have any abdominal pain and no diarrhea, swelling to lower extremity decreased. Patient white count is 5.82, creatinine 0.70 blood culture has been negative so far Objective - Vital Signs Vital signs: Vital Signs Temp 98.3 F 09/22/24 14:00 Pulse 68 09/22/24 14:00 Resp 20 09/22/24 14:00 BP 126/86 09/22/24 14:00 Pulse Ox 96 09/22/24 14:00 FiO2 Intake & Output 09/21/24 09/22/24 09/22/24 18:59 06:59 18:59 Intake Total 0 Output Total 2891 700 0910 Balance -1700 -300 -1000 Intake: Oral 0 Output: Urine 3909 [id number] [id number] Other: Voiding Method Urinal Urinal Urinal # Voids 1 # Bowel Movements 1 1 1 - Exam GENERAL DESCRIPTION: Middle-age male lying in bed in no distress RESPIRATORY SYSTEM: Unlabored breathing , decreased breath sounds at bases HEART: S1 S2 regular rate and rhythm , ABDOMEN: Soft , no tenderness EXTREMITIES: Right leg wound is currently covered with a wound VAC - Labs CBC & Chem 7: 09/22/24 05:23 09/22/24 05:23 Labs: Abnormal Lab Results - Last 24 Hours (Table) 09/21/24 09/22/24 09/22/24 Range/Units 16:55 05:23 05:23 RBC 3.99 L (4.40-5.60) X 10*6/uL Hgb 8.0 L (13.0-17.0) g/dL Hct 27.3 L (39.6-50.0) % MCV 68.4 L (80.0-97.0) FL MCH 20.1 L (27.0-32.0) pg MCHC 29.3 L (32.0-37.0) g/dL RDW 17.5 H (11.5-14.5) % Eosinophils # 0.48 H (0.04-0.35) X 10*3/uL Basophils # 0.11 H (0.00-0.10) X 10*3/uL Sodium 132 L (137-145) mmol/L Chloride 97 L (98-107) mmol/L Glucose 103 H (74-99) mg/dL POC Glucose (mg/dL) 216 H (70-110) mg/dL Calcium 7.9 L (8.4-10.2) mg/dL Alkaline Phosphatase 322 H (38-126) U/L NT-Pro-B Natriuret Pep (0-125) pg/mL Total Protein 5.6 L (6.3-8.2) g/dL Albumin 2.5 L (3.5-5.0) g/dL 09/22/24 09/22/24 Range/Units 05:23 12:18 RBC (4.40-5.60) X 10*6/uL Hgb (13.0-17.0) g/dL Hct (39.6-50.0) % MCV (80.0-97.0) FL MCH (27.0-32.0) pg MCHC (32.0-37.0) g/dL RDW (11.5-14.5) % Eosinophils # (0.04-0.35) X 10*3/uL Basophils # (0.00-0.10) X 10*3/uL Sodium (137-145) mmol/L Chloride (98-107) mmol/L Glucose (74-99) mg/dL POC Glucose (mg/dL) 128 H (70-110) mg/dL Calcium (8.4-10.2) mg/dL Alkaline Phosphatase (38-126) U/L NT-Pro-B Natriuret Pep 1882 H (0-125) pg/mL Total Protein (6.3-8.2) g/dL Albumin (3.5-5.0) g/dL Microbiology - Last 24 Hours (Table) 09/18/24 10:55 Blood Culture - Preliminary Blood Assessment and Plan (1) Leg wound, right Current Visit: Yes Status: Acute Code(s): S81.801A - UNSPECIFIED OPEN WOUND, RIGHT LOWER LEG, INITIAL ENCOUNTER SNOMED Code(s): 84847327393082991 (2) Wound cellulitis Current Visit: Yes Status: Acute Code(s): L03.90 - CELLULITIS, UNSPECIFIED SNOMED Code(s): 960861373 Plan: 1patient presented to hospital with increasing swelling pain and redness of the right lower extremity in this patient who did have a history of necrotizing infection to the right leg requiring multiple surgery currently dealing with a large wound with a recent outpatient culture positive for strep MRSA and Pseudomonas now presenting with worsening swelling and weakness possibly cardiac etiology and is being monitored by cardiology 2patient is afebrile, white count is normal 3patient to continue with vancomycin pharmacy to dose along with cefepime and Flagyl and monitor clinical course closely Dictation was produced using [employer] dictation software. please excuse any grammatical, word or spelling errors. Time with Patient: Less than 30
[2024-09-22 17:26] LABS: Glucose,Whole Blood 128 mg/dL (70-110)
[2024-09-22 19:59] LABS: Glucose,Whole Blood 161 mg/dL (70-110)
[2024-09-22] MEDS: INSULIN GLARGINE (LANTUS) 100 UNIT/ML SYR SQ SCH (20:30)
[2024-09-23 06:05] LABS: African American GFR (CKD) >90 (>60 ml/min/1.73 sqM); Non-African American GFR(CKD) >90 (>60 ml/min/1.73 sqM)
[2024-09-23 07:21] LABS: Glucose,Whole Blood 141 mg/dL (70-110)
--- NOTE | 2024-09-23 09:49 | P.PN ---
Subjective HISTORY OF PRESENT ILLNESS: This is a 43-year-old male patient of Dr. Abad last seen in the office in January 2021 with past medical history of hypertension, uncontrolled diabetes mellitus type 2, obesity, family history of premature coronary artery disease, history of coronary artery disease status post ST [facility]ILDA and PCI of the LAD and RCA, ischemic cardiomyopathy with EF 35 to 40%, chronic atrial fibrillation. We have been asked to evaluate the patient for CHF. Patient states that he has had a chronic wound on his right leg going on 8 to 9 months. He states he has had multiple surgeries done on the wounds by Dr. Wright. Patient had a PICC line placed 3 to 4 weeks ago and is currently on oral antibiotics in the outpatient setting. Patient has had increased weakness generalized. He has been following in the wound center on a regular basis and had a wound VAC in place. He states he has had increased edema all over his body. He denies increased shortness of breath. Blood pressure 129/82, heart rate 60, pulse ox 94% on room air. Patient has been started on IV Lasix 20 mg every 12 hours. -EKG: None -Chest x-ray: No acute process. Cardiomegaly. -Laboratory studies: WBC 7.6, hemoglobin 8.5 electrolytes are normal. Renal fun ction normal with BUN 16 creatinine 0.8. Hemoglobin A1c 13.3. Alkaline phosphatase 383. proBNP 4440. -Home cardiac medications: Eliquis 5 mg twice daily, aspirin 81 mg daily, atorvastatin 80 mg daily, Coreg 25 mg twice daily, Nitrostat. -Echocardiogram this admission revealed EF 30 to 35%, mild to moderate mitral and tricuspid regurgitation, small pericardial effusion, mild pulmonary hypertension, mild aortic dilatation at the level of sinus of Valsalva. 09/21/2024 Patient was seen and examined resting comfortably in bed. Continues to have edema, mildly improving. Wound VAC is in place. Hemoglobin 8.0, renal function is stable. Remains in a negative fluid balance 09/22/24 Patient was seen and examined resting comfortably in bed. He feels his breathing and edema have mildly improved. Wound VAC remains in place. Globin is stable at 8 and kidney function remains stable. He remains on IV Lasix and continues to be in a negative fluid balance with good urine output. He feels somewhat nauseous today and feels it is related to his blood sugar being 104 which normally runs in the 400 range at home. 09/23/2024 Patient examined this morning the bedside. Patient currently denies chest pain or pressure. He denies shortness of breath. Patient continues to have lower extremity edema. Vital signs are stable. Blood pressure with systolic readings between 112630. Kidney function stable today with a creatinine of 0.8. Repeat BNP performed yesterday 1881, improved from admission of 4440. Patient remains on IV Lasix 40 mg twice a day. PHYSICAL EXAM: VITAL SIGNS: Reviewed. GENERAL: Well-developed in no acute distress. NECK: Supple. No JVD or thyromegaly LUNGS: Respirations even and unlabored. Lungs essentially clear to auscultation bilaterally. HEART: Regular rate and rhythm. S1 and S2 heard. EXTREMITIES: Normal range of motion. No clubbing or cyanosis. Peripheral pulses intact. Bilateral lower extremity pitting edema noted. ASSESSMENT: Right lower extremity wounds, chronic, failed outpatient treatment Acute on chronic congestive heart failure with reduced EF, 30 to 35% Paroxysmal atrial fibrillation, currently maintaining sinus mechanism Coronary artery disease status post NSTEMI and PCI of the LAD and RCA Ischemic cardiomyopathy with previous EF of 30 to 35% Hypertension Uncontrolled diabetes with A1c of 13 Obesity with BMI of 34 Noncompliance with follow-up PLAN: Continue current cardiac medications including Eliquis, aspirin, atorvastatin, carvedilol, Farxiga, lisinopril, and Aldactone Continue IV Lasix 40 mg every 12 hours Daily weights, accurate intake and output, and monitoring of kidney function Further recommendations pending patient course Nurse practitioner note has been reviewed by physician. Signing provider agrees with the documented findings, assessment, and plan of care documented by CILNICAL SCIENTIST as a scribe. Objective - Vital Signs Vital signs: Vital Signs Temp 97.6 F 09/23/24 07:27 Pulse 66 09/23/24 07:27 Resp 17 09/23/24 07:27 BP 147/94 09/23/24 07:27 Pulse Ox 95 09/23/24 07:27 FiO2 Intake & Output 09/22/24 09/23/24 09/23/24 18:59 06:59 18:59 Intake Total 0 600 Output Total 2000 900 Balance -2000 -300 Intake: Intake, IV Titration 600 Amount Cefepime 2 gm In Sodium 100 Chloride 0.9% 100 ml @ 25 mls/hr IVPB Q8HR [facility] Rx# :[id number] Vancomycin 2,000 mg In 500 Sodium Chloride 0.9% 500 ml 500 ml @ 167 mls/hr IVPB Q12H [facility] Rx#: [id number] Oral 0 Output: Urine 2000 900 Other: Voiding Method Urinal Urinal # Bowel Movements 1 - Labs CBC & Chem 7: 09/22/24 05:23 09/23/24 05:05 Labs: Abnormal Lab Results - Last 24 Hours (Table) 09/22/24 09/22/24 09/22/24 Range/Units 05:23 12:18 17:24 POC Glucose (mg/dL) 128 H 128 H (70-110) mg/dL NT-Pro-B Natriuret Pep 1882 H (0-125) pg/mL 09/22/24 09/23/24 Range/Units 19:56 07:12 POC Glucose (mg/dL) 161 H 141 H (70-110) mg/dL NT-Pro-B Natriuret Pep (0-125) pg/mL
--- NOTE | 2024-09-23 09:57 | P.PN ---
Subjective patient is a 43-year-old gentleman past medical history significant for hyperlipidemia, diabetes mellitus, right lower extremity fasciotomy with wound VAC placement who presented the ER because of increasing weakness and swelling of right lower extremity. Patient had multiple surgeries on his right leg and initially was getting antibiotics for ESBL E. coli. Patient was following up outpatient at the wound care center and had a recent wound culture done which showed Pseudomonas, Streptococcus electrically and MRSA, and was prescribed oral antibiotics. Patient was noticing for the last week he has been getting more weak and has noticed that his lower extremities were getting swollen. Patient also complained abdominal distention. Patient denied any fever or chills. There was no complaint of chest pain or shortness of breath. Patient was seen in the wound care clinic and was sent to the ER Initial lab work done in the ER showed WBC 7.4, hemoglobin 10, platelet count 366, sodium 130, potassium 5.2, BUN 18, creatinine 0.58, glucose 300, lactate 1.5, calcium 8.9, magnesium 1.6, alk phos 382, proBNP 4440 albumin 3 X-ray tibia and fibula showed no acute osseous abnormality, soft tissue changes in the medial right foreleg Chest x-ray done in the ER showed no acute cardiopulmonary process Patient admitted to internal medicine service 09/21. Patient seen and examined. Swelling of lower extremity has improved, still has groin swelling. 2D echo done showed impaired LV function of 35%, mild to moderate mitral and tricuspid regurg with small pericardial effusion and mild pulmonary hypertension 09/22. Patient seen and examined. Swelling of lower extremities is improving. Denies any shortness of breath at rest. Vital signs stable. Blood work done showed WBC 5.82, hemoglobin 8, sodium 132, potassium 3.8, BUN 18, creatinine 0.70 proBNP 1882 09/23 This is a pleasant 43 years old male with chronic right leg wound and follow-up with the wound clinic who sent him to the hospital because of his right leg wound. He has wound VAC in place, his right lower extremity is warm swollen to touch. Patient evaluated by ID team and he is on IV cefepime Flagyl and IV vancomycin Also patient has evidence of CHF with treatment with IV Lasix 40 mg twice daily His echocardiogram showed ejection fraction 30 to 35% He is on Eliquis for his A-fib His girlfriend at bedside after patient gave verbal consent REVIEW OF SYSTEMS: CONSTITUTIONAL: No fever, no malaise,. CARDIOVASCULAR: No chest pain, no palpitations, no syncope. PULMONARY: No shortness of breath, no cough, GASTROINTESTINAL: No diarrhea, no nausea, no vomiting, no abdominal pain. NEUROLOGICAL: No headaches, no weakness, Active Medications Generic Name Dose Route Start Last Admin Trade Name Freq PRN Reason Stop Dose Admin Acetaminophen 650 mg 09/18/24 12:07 Acetaminophen Tab 325 Mg Tab PO Q6HR PRN Mild Pain or Fever > 100.5 Apixaban 5 mg 09/18/24 21:00 09/23/24 08:56 Apixaban 5 Mg Tab PO 5 mg BID [facility] Administration Protocol Aspirin 81 mg 09/19/24 09:00 09/23/24 08:56 Aspirin 81 Mg PO 81 mg DAILY [facility] Administration Atorvastatin Calcium 80 mg 09/19/24 09:00 09/23/24 08:56 Atorvastatin 80 Mg Tab PO 80 mg DAILY [facility] Administration Benzonatate 100 mg 09/19/24 00:12 09/20/24 13:34 Benzonatate 100 Mg Cap PO 100 mg TID PRN Administration Cough Carvedilol 25 mg 09/18/24 17:30 09/23/24 08:57 Carvedilol 12.5 Mg Tab PO 25 mg BID-W/MEALS [facility] Administration Dapagliflozin 10 mg 09/21/24 14:15 09/23/24 08:56 Dapagliflozin Propanediol 10 Mg Tablet PO 10 mg DAILY [facility] Administration Dextrose/Water 25 ml 09/18/24 13:16 Dextrose 50% Syringe 50 Ml IVP PER PROTOCOL PRN Hypoglycemia Protocol Dextrose/Water 50 ml 09/18/24 13:16 Dextrose 50% Syringe 50 Ml IVP PER PROTOCOL PRN Hypoglycemia Protocol Furosemide 40 mg 09/19/24 21:00 09/23/24 08:57 Furosemide 10 Mg/Ml 4 Ml Vial IV 40 mg Q12HR [facility] Administration Guaifenesin 250 mg 09/19/24 00:12 09/22/24 22:10 Guaifenesin Syrup 100mg/5ml 200 Mg/10 Ml Cup PO 250 mg Q6HR PRN Administration Cough Cefepime HCl 2 gm/ Sodium 100 mls @ 25 mls/hr 09/19/24 00:00 09/23/24 08:55 Chloride IVPB 25 mls/hr Q8HR [facility] Administration Protocol Vancomycin HCl 2,000 mg/ 500 mls @ 167 mls/hr 09/19/24 12:00 09/22/24 23:46 Sodium Chloride IVPB 167 mls/hr Q12H [facility] Administration Insulin Aspart 0 unit 09/18/24 17:30 09/23/24 07:33 Insulin Aspart (Novolog) 100 Unit/Ml Vial SQ Not Given ACHS [facility] Protocol Insulin Glargine 10 unit 09/22/24 21:00 09/23/24 08:56 Insulin Glargine (Lantus) 100 Unit/Ml Syr SQ 10 unit BID@0700,2100 [facility] Administration Lisinopril 2.5 mg 09/21/24 14:15 09/23/24 08:56 Lisinopril 2.5 Mg Tab PO 2.5 mg DAILY [facility] Administration Metronidazole 500 mg 09/18/24 22:00 09/23/24 08:56 Metronidazole 500 Mg Tab PO 500 mg TID [facility] Administration Protocol Miscellaneous Information 0 each 09/24/24 11:00 Vancomycin Trough Due 1 Each Misc MISCELLANE 09/24/24 11:01 DIRECTED ONE Naloxone HCl 0.2 mg 09/18/24 12:07 Naloxone 0.4 Mg/Ml 1 Ml Vial IV Q2M PRN Opioid Reversal Ondansetron HCl 4 mg 09/22/24 13:59 09/22/24 20:24 Ondansetron 4 Mg/2 Ml Vial IVP 4 mg Q6H PRN Administration Nausea Pantoprazole Sodium 40 mg 09/19/24 00:30 09/23/24 08:56 Pantoprazole 40 Mg Tablet PO 40 mg AC-BID [facility] Administration Spironolactone 25 mg 09/21/24 14:15 09/23/24 08:56 Spironolactone 25 Mg Tab PO 25 mg DAILY [facility] Administration Objective - Vital Signs Vital signs: Vital Signs Temp 97.6 F 09/23/24 07:27 Pulse 66 09/23/24 07:27 Resp 17 09/23/24 07:27 BP 147/94 09/23/24 07:27 Pulse Ox 95 09/23/24 07:27 FiO2 Intake & Output 09/22/24 09/23/24 09/23/24 18:59 06:59 18:59 Intake Total 0 600 Output Total 1999 900 Balance -1999 Intake: Intake, IV Titration 600 Amount Cefepime 2 gm In Sodium 100 Chloride 0.9% 100 ml @ 25 mls/hr IVPB Q8HR [facility] Rx# :[id number] Vancomycin 2,000 mg In 500 Sodium Chloride 0.9% 500 ml 500 ml @ 167 mls/hr IVPB Q12H [facility] Rx#: [id number] Oral 0 Output: Urine 2000 900 Other: Voiding Method Urinal Urinal # Bowel Movements 1 - Exam -Physical exam GENERAL: The patient is alert and oriented x3, not in any acute distress. Well developed, well nourished. Obese HEENT: Pupils are round and equally reacting to light. EOMI. No scleral icterus. No conjunctival pallor. Normocephalic, atraumatic. No pharyngeal erythema. No thyromegaly. CARDIOVASCULAR: S1 and S2 present. No murmurs, rubs, or gallops. PULMONARY: Chest is clear to auscultation, no wheezing , no crackles. ABDOMEN: Soft, nontender, nondistended, normoactive bowel sounds. No palpable organomegaly. MUSCULOSKELETAL: No joint swelling or deformity. EXTREMITIES: No cyanosis, clubbing, or pedal edema. -NEUROLOGICAL: Gross neurological examination did not reveal any focal deficits. Large right leg wound posteriorly and medially with wound VAC in place SKIN: No rashes. no petechiae. - Labs CBC & Chem 7: 09/22/24 05:23 09/23/24 05:05 Labs: Abnormal Lab Results - Last 24 Hours (Table) 09/22/24 09/22/24 09/22/24 Range/Units 05:23 12:18 17:24 POC Glucose (mg/dL) 128 H 128 H (70-110) mg/dL NT-Pro-B Natriuret Pep 1882 H (0-125) pg/mL 09/22/24 09/23/24 Range/Units 19:56 07:12 POC Glucose (mg/dL) 161 H 141 H (70-110) mg/dL NT-Pro-B Natriuret Pep (0-125) pg/mL Assessment and Plan Assessment: Right lower extremity cellulitis Chronic right leg wound with wound VAC Cardiomyopathy, EF 30 to 35% Acute on chronic systolic CHF Generalized anasarca Insulin-dependent diabetes mellitus Hypertension Hyperlipidemia Atrial fibrillation Plan: Continue with IV Lasix 40 mg twice daily Continue with antibiotics as per ID team, currently placed on IV cefepime, Flagyl and IV vancomycin Continue with wound VAC ID team and cardiology team on the case Further recommendation based on the clinical course GI prophylaxis: Protonix DVT prophylaxis Eliquis Patient will go to ECF upon discharge
[2024-09-23 13:09] LABS: Glucose,Whole Blood 167 mg/dL (70-110)
[2024-09-23 17:28] LABS: Glucose,Whole Blood 115 mg/dL (70-110)
[2024-09-23 20:03] LABS: Glucose,Whole Blood 125 mg/dL (70-110)
[2024-09-24 07:12] LABS: Glucose,Whole Blood 137 mg/dL (70-110)
--- NOTE | 2024-09-24 07:53 | P.PN ---
Subjective Progress Note Date: 09/23/24 Principal diagnosis: Reason for follow-up is right lower extremity wound Patient is a 43-year-old male with a past medical history significant for atrial fibrillation coronary disease diabetes mellitus hypertension hyperlipidemia in this patient also have a history of necrotizing infection to the right leg requiring multiple surgeries has completed course of IV antibiotic for his ESBL infection and was on oral Cipro and Bactrim with a recent culture positive for Pseudomonas and MRSA presented to hospital with weakness and worsening swelling. On today's evaluation that is 09/23/2024, patient has been afebrile, patient is breathing comfortably and is currently on room air, patient denies having any significant cough no chest pain, patient denies nausea vomiting or diarrhea and no abdominal pain pain to the right lower extremity wound is currently controlled. Patient did have a creatinine 0.80 no CBC was done today blood culture has been negative Objective - Vital Signs Vital signs: Vital Signs Temp 97.6 F 09/23/24 07:27 Pulse 66 09/23/24 07:27 Resp 17 09/23/24 07:27 BP 147/94 09/23/24 07:27 Pulse Ox 95 09/23/24 07:27 FiO2 Intake & Output 09/22/24 09/23/24 09/23/24 18:59 06:59 18:59 Intake Total 0 600 Output Total 2000 900 Balance -1999 Intake: Intake, IV Titration 600 Amount Cefepime 2 gm In Sodium 100 Chloride 0.9% 100 ml @ 25 mls/hr IVPB Q8HR [facility] Rx# :[id number] Vancomycin 2,000 mg In 500 Sodium Chloride 0.9% 500 ml 500 ml @ 167 mls/hr IVPB Q12H [facility] Rx#: [id number] Oral 0 Output: Urine 1999 Other: Voiding Method Urinal Urinal # Bowel Movements 1 - Exam GENERAL DESCRIPTION: Middle-age male lying in bed in no distress RESPIRATORY SYSTEM: Unlabored breathing , decreased breath sounds at bases HEART: S1 S2 regular rate and rhythm , ABDOMEN: Soft , no tenderness EXTREMITIES: Right leg wound base looks clean with no significant slough tissue or surrounding redness - Labs CBC & Chem 7: 09/22/24 05:23 09/23/24 05:05 Labs: Abnormal Lab Results - Last 24 Hours (Table) 09/22/24 09/22/24 09/22/24 Range/Units 05:23 17:24 19:56 POC Glucose (mg/dL) 128 H 161 H (70-110) mg/dL NT-Pro-B Natriuret Pep 1882 H (0-125) pg/mL 09/23/24 Range/Units 07:12 POC Glucose (mg/dL) 141 H (70-110) mg/dL NT-Pro-B Natriuret Pep (0-125) pg/mL Assessment and Plan (1) Leg wound, right Current Visit: Yes Status: Acute Code(s): S81.801A - UNSPECIFIED OPEN WOUND, RIGHT LOWER LEG, INITIAL ENCOUNTER SNOMED Code(s): 93871273471758613 (2) Wound cellulitis Current Visit: Yes Status: Acute Code(s): L03.90 - CELLULITIS, UNSPECIFIED SNOMED Code(s): 723465263 Plan: 1patient presented to hospital with increasing swelling pain and redness of the right lower extremity in this patient who did have a history of necrotizing infection to the right leg requiring multiple surgery currently dealing with a large wound with a recent outpatient culture positive for strep MRSA and Pseudomonas now presenting with worsening swelling and weakness possibly cardiac etiology and is being monitored by cardiology 2patient is afebrile, white count is normal and blood culture has been negative 3patient to continue with vancomycin pharmacy to dose along with cefepime and Flagyl, however the patient wound looks clean and antibiotics can be safely discontinued on discharge multiple question concern answered Dictation was produced using [employer] dictation software. please excuse any grammatical, word or spelling errors.
[2024-09-24 08:56] LABS: BUN/Creat Ratio 17.89 Ratio (12.00-20.00); Blood Urea Nitrogen 16.1 mg/dL (9.0-27.0); Calcium 8.1 mg/dL (8.7-10.3); Carbon Dioxide 29.6 mmol/L (21.6-31.8); Chloride 100 mmol/L (96-109); Glucose 131 mg/dL (70-110); Potassium 4.1 mmol/L (3.5-5.5); Sodium 138 mmol/L (135-145)
--- NOTE | 2024-09-24 09:26 | P.PN ---
Subjective HISTORY OF PRESENT ILLNESS: This is a 43-year-old male patient of Dr. Abad last seen in the office in January 2021 with past medical history of hypertension, uncontrolled diabetes mellitus type 2, obesity, family history of premature coronary artery disease, history of coronary artery disease status post ST MATILDA and PCI of the LAD and RCA, ischemic cardiomyopathy with EF 35 to 40%, chronic atrial fibrillation. We have been asked to evaluate the patient for CHF. Patient states that he has had a chronic wound on his right leg going on 8 to 9 months. He states he has had multiple surgeries done on the wounds by Dr. Wright. Patient had a PICC line placed 3 to 4 weeks ago and is currently on oral antibiotics in the outpatient setting. Patient has had increased weakness generalized. He has been following in the wound center on a regular basis and had a wound VAC in place. He states he has had increased edema all over his body. He denies increased shortness of breath. Blood pressure 129/82, heart rate 60, pulse ox 94% on room air. Patient has been started on IV Lasix 20 mg every 12 hours. -EKG: None -Chest x-ray: No acute process. Cardiomegaly. -Laboratory studies: WBC 7.6, hemoglobin 8.5 electrolytes are normal. Renal fun ction normal with BUN 16 creatinine 0.8. Hemoglobin A1c 13.3. Alkaline phosphatase 383. proBNP 4440. -Home cardiac medications: Eliquis 5 mg twice daily, aspirin 81 mg daily, atorvastatin 80 mg daily, Coreg 25 mg twice daily, Nitrostat. -Echocardiogram this admission revealed EF 30 to 35%, mild to moderate mitral and tricuspid regurgitation, small pericardial effusion, mild pulmonary hypertension, mild aortic dilatation at the level of sinus of Valsalva. 09/21/2024 Patient was seen and examined resting comfortably in bed. Continues to have edema, mildly improving. Wound VAC is in place. Hemoglobin 8.0, renal function is stable. Remains in a negative fluid balance 09/22/24 Patient was seen and examined resting comfortably in bed. He feels his breathing and edema have mildly improved. Wound VAC remains in place. Globin is stable at 8 and kidney function remains stable. He remains on IV Lasix and continues to be in a negative fluid balance with good urine output. He feels somewhat nauseous today and feels it is related to his blood sugar being 104 which normally runs in the 400 range at home. 09/23/2024 Patient examined this morning the bedside. Patient currently denies chest pain or pressure. He denies shortness of breath. Patient continues to have lower extremity edema. Vital signs are stable. Blood pressure with systolic readings between [id number]. Kidney function stable today with a creatinine of 0.8. Repeat BNP performed yesterday 1881, improved from admission of 4440. Patient remains on IV Lasix 40 mg twice a day. 09/24/2024 Patient examined this morning at the bedside. Patient denies any chest pain or pressure. He reports mild shortness of breath. He continues to have lower extremity edema. He remains on IV Lasix 40 mg twice a day. BUN 16. Creatinine 0.9. Vital signs are stable. Blood pressure 133/84. PHYSICAL EXAM: VITAL SIGNS: Reviewed. GENERAL: Well-developed in no acute distress. NECK: Supple. No JVD or thyromegaly LUNGS: Respirations even and unlabored. Lungs essentially clear to auscultation bilaterally. HEART: Regular rate and rhythm. S1 and S2 heard. EXTREMITIES: Normal range of motion. No clubbing or cyanosis. Peripheral pulses intact. Bilateral lower extremity pitting edema noted. Wound VAC noted to right lower extremity. ASSESSMENT: Right lower extremity wounds, chronic, failed outpatient treatment Acute on chronic congestive heart failure with reduced EF, 30 to 35% Paroxysmal atrial fibrillation, currently maintaining sinus mechanism Coronary artery disease status post NSTEMI and PCI of the LAD and RCA Ischemic cardiomyopathy with previous EF of 30 to 35% Hypertension Uncontrolled diabetes with A1c of 13 Obesity with BMI of 34 Noncompliance with follow-up PLAN: Continue current cardiac medications including Eliquis, aspirin, atorvastatin, carvedilol, Farxiga, and Aldactone Discontinue lisinopril. Last dose 09/23/2024 in a.m. Begin Entresto 24-26 mg twice a day starting this evening at 2100 Continue IV Lasix 40 mg every 12 hours Daily weights, accurate intake and output, and monitoring of kidney function Further recommendations pending patient course Nurse practitioner note has been reviewed by physician. Signing provider agrees with the documented findings, assessment, and plan of care documented by TUTORING MANAGER as a scribe. Objective - Vital Signs Vital signs: Vital Signs Temp 98.2 F 09/24/24 07:30 Pulse 72 09/24/24 07:30 Resp 13 09/24/24 07:30 BP 133/84 09/24/24 07:30 Pulse Ox 95 09/24/24 07:30 FiO2 Intake & Output 09/23/24 09/24/24 09/24/24 18:59 06:59 18:59 Intake Total 1080 600 Output Total 2500 1800 500 Balance -1420 -1200 -500 Intake: Intake, IV Titration 600 Amount Cefepime 2 gm In Sodium 100 Chloride 0.9% 100 ml @ 25 mls/hr IVPB Q8HR [facility] Rx# :[id number] Vancomycin 2,000 mg In 500 Sodium Chloride 0.9% 500 ml 500 ml @ 167 mls/hr IVPB Q12H [facility] Rx#: [id number] Oral 1080 Output: Drainage 500 Right calf and dorsal 500 foot Urine 2500 1800 Other: Voiding Method Urinal - Labs CBC & Chem 7: 09/22/24 05:23 09/24/24 04:22 Labs: Abnormal Lab Results - Last 24 Hours (Table) 09/23/24 09/23/24 09/23/24 Range/Units 13:04 17:26 19:59 Glucose (70-110) mg/dL POC Glucose (mg/dL) 167 H 115 H 125 H (70-110) mg/dL Calcium (8.7-10.3) mg/dL 09/24/24 09/24/24 Range/Units 04:22 07:10 Glucose 131 H (70-110) mg/dL POC Glucose (mg/dL) 137 H (70-110) mg/dL Calcium 8.1 L (8.7-10.3) mg/dL Microbiology - Last 24 Hours (Table) 09/18/24 10:55 Blood Culture - Final Blood
[2024-09-24] MEDS: VANCOMYCIN TROUGH DUE 1 EACH MISC MISCELLANE ONE (11:29)
[2024-09-24 11:53] LABS: Glucose,Whole Blood 203 mg/dL (70-110)
--- NOTE | 2024-09-24 12:18 | P.PN ---
Subjective patient is a 43-year-old gentleman past medical history significant for hyperlipidemia, diabetes mellitus, right lower extremity fasciotomy with wound VAC placement who presented the ER because of increasing weakness and swelling of right lower extremity. Patient had multiple surgeries on his right leg and initially was getting antibiotics for ESBL E. coli. Patient was following up outpatient at the wound care center and had a recent wound culture done which showed Pseudomonas, Streptococcus electrically and MRSA, and was prescribed oral antibiotics. Patient was noticing for the last week he has been getting more weak and has noticed that his lower extremities were getting swollen. Patient also complained abdominal distention. Patient denied any fever or chills. There was no complaint of chest pain or shortness of breath. Patient was seen in the wound care clinic and was sent to the ER Initial lab work done in the ER showed WBC 7.4, hemoglobin 10, platelet count 366, sodium 130, potassium 5.2, BUN 18, creatinine 0.58, glucose 300, lactate 1.5, calcium 8.9, magnesium 1.6, alk phos 382, proBNP 4440 albumin 3 X-ray tibia and fibula showed no acute osseous abnormality, soft tissue changes in the medial right foreleg Chest x-ray done in the ER showed no acute cardiopulmonary process Patient admitted to internal medicine service 09/21. Patient seen and examined. Swelling of lower extremity has improved, still has groin swelling. 2D echo done showed impaired LV function of 35%, mild to moderate mitral and tricuspid regurg with small pericardial effusion and mild pulmonary hypertension 09/22. Patient seen and examined. Swelling of lower extremities is improving. Denies any shortness of breath at rest. Vital signs stable. Blood work done showed WBC 5.82, hemoglobin 8, sodium 132, potassium 3.8, BUN 18, creatinine 0.70 proBNP 1882 09/23 This is a pleasant 43 years old male with chronic right leg wound and follow-up with the wound clinic who sent him to the hospital because of his right leg wound. He has wound VAC in place, his right lower extremity is warm swollen to touch. Patient evaluated by ID team and he is on IV cefepime Flagyl and IV vancomycin Also patient has evidence of CHF with treatment with IV Lasix 40 mg twice daily His echocardiogram showed ejection fraction 30 to 35% He is on Eliquis for his A-fib His girlfriend at bedside after patient gave verbal consent 09/24 His right leg infection looks much better compared to yesterday is less swollen tender or redness Wound VAC remains on the space he remains on broad-spectrum antibiotics. Infectious disease team cleared him for discharge. However cardiology team added some medication like Entresto and will going to monitor labs tomorrow Also discussed case with nurse outreach case manager/social problems specialist. The facility has accepted him pending insurance authorization I talked with the plan with the patient and he is agreeable for possible dischar ge in 24 to 48 hours if everything stable and improving Objective - Vital Signs Vital signs: Vital Signs Temp 98.2 F 09/24/24 07:30 Pulse 72 09/24/24 07:30 Resp 13 09/24/24 07:30 BP 133/84 09/24/24 07:30 Pulse Ox 95 09/24/24 07:30 FiO2 Intake & Output 09/23/24 09/24/24 09/24/24 18:59 06:59 18:59 Intake Total 1080 600 Output Total 2500 1800 500 Balance -1420 -1200 -500 Intake: Intake, IV Titration 600 Amount Cefepime 2 gm In Sodium 100 Chloride 0.9% 100 ml @ 25 mls/hr IVPB Q8HR [facility] Rx# :[id number] Vancomycin 2,000 mg In 500 Sodium Chloride 0.9% 500 ml 500 ml @ 167 mls/hr IVPB Q12H [facility] Rx#: [id number] Oral 1080 Output: Drainage 500 Right calf and dorsal 500 foot Urine 2500 1800 Other: Voiding Method Urinal - Exam -Physical exam GENERAL: The patient is alert and oriented x3, not in any acute distress. Well developed, well nourished. Obese HEENT: Pupils are round and equally reacting to light. EOMI. No scleral icterus. No conjunctival pallor. Normocephalic, atraumatic. No pharyngeal erythema. No thyromegaly. CARDIOVASCULAR: S1 and S2 present. No murmurs, rubs, or gallops. PULMONARY: Chest is clear to auscultation, no wheezing , no crackles. ABDOMEN: Soft, nontender, nondistended, normoactive bowel sounds. No palpable organomegaly. MUSCULOSKELETAL: No joint swelling or deformity. EXTREMITIES: No cyanosis, clubbing, or pedal edema. -NEUROLOGICAL: Gross neurological examination did not reveal any focal deficits. Large right leg wound posteriorly and medially with wound VAC in place SKIN: No rashes. no petechiae. - Labs CBC & Chem 7: 09/22/24 05:23 09/24/24 04:22 Labs: Abnormal Lab Results - Last 24 Hours (Table) 09/23/24 09/23/24 09/23/24 Range/Units 13:04 17:26 19:59 Glucose (70-110) mg/dL POC Glucose (mg/dL) 167 H 115 H 125 H (70-110) mg/dL Calcium (8.7-10.3) mg/dL 09/24/24 09/24/24 09/24/24 Range/Units 04:22 07:10 11:50 Glucose 131 H (70-110) mg/dL POC Glucose (mg/dL) 137 H 203 H (70-110) mg/dL Calcium 8.1 L (8.7-10.3) mg/dL Microbiology - Last 24 Hours (Table) 09/18/24 10:55 Blood Culture - Final Blood Assessment and Plan Assessment: Right lower extremity cellulitis Chronic right leg wound with wound VAC Cardiomyopathy, EF 30 to 35% Acute on chronic systolic CHF Generalized anasarca Insulin-dependent diabetes mellitus Hypertension Hyperlipidemia Atrial fibrillation Plan: Continue with IV Lasix 40 mg twice daily Continue with antibiotics as per ID team, currently placed on IV cefepime, Flagyl and IV vancomycin Continue with wound VAC ID team and cardiology team on the case Further recommendation based on the clinical course GI prophylaxis: Protonix DVT prophylaxis Eliquis Patient will go to ECF upon discharge
[2024-09-24] MEDS ORDERED: VANCOMYCIN IV PER PHARMACY 1 EACH MISC MISCELLANE PRN (13:48)
--- NOTE | 2024-09-24 13:54 | P.PN ---
Subjective Progress Note Date: 09/24/24 Principal diagnosis: Reason for follow-up is right lower extremity wound Patient is a 43-year-old male with a past medical history significant for atrial fibrillation coronary disease diabetes mellitus hypertension hyperlipidemia in this patient also have a history of necrotizing infection to the right leg requiring multiple surgeries has completed course of IV antibiotic for his ESBL infection and was on oral Cipro and Bactrim with a recent culture positive for Pseudomonas and MRSA presented to hospital with weakness and worsening swelling. On today's evaluation that is 09/24/2024, Patient is afebrile this morning patient denies having any chest pain shortness of breath or cough, the patient is currently on room air, patient denies any abdominal pain no diarrhea no nausea no vomiting. The patient creatinine 0.9, Vanco trough is elevated at 31.6 blood culture has been negative Objective - Vital Signs Vital signs: Vital Signs Temp 98 F 09/24/24 11:50 Pulse 74 09/24/24 11:50 Resp 20 09/24/24 11:50 BP 135/92 09/24/24 11:50 Pulse Ox 95 09/24/24 11:50 FiO2 Intake & Output 09/23/24 09/24/24 09/24/24 18:59 06:59 18:59 Intake Total 1080 600 Output Total 2500 1800 500 Balance -1420 -1200 -500 Weight 145 kg Intake: Intake, IV Titration 600 Amount Cefepime 2 gm In Sodium 100 Chloride 0.9% 100 ml @ 25 mls/hr IVPB Q8HR [facility] Rx# :[id number] Vancomycin 2,000 mg In 500 Sodium Chloride 0.9% 500 ml 500 ml @ 167 mls/hr IVPB Q12H [facility] Rx#: [id number] Oral 1080 Output: Drainage 500 Right calf and dorsal 500 foot Urine 2500 1800 Other: Voiding Method Urinal - Exam GENERAL DESCRIPTION: Middle-age male lying in bed in no distress RESPIRATORY SYSTEM: Unlabored breathing , decreased breath sounds at bases HEART: S1 S2 regular rate and rhythm , ABDOMEN: Soft , no tenderness EXTREMITIES: Right leg wound covered with a wound VAC - Labs CBC & Chem 7: 09/22/24 05:23 09/24/24 04:22 Labs: Abnormal Lab Results - Last 24 Hours (Table) 09/23/24 09/23/24 09/24/24 Range/Units 17:26 19:59 04:22 Glucose 131 H (70-110) mg/dL POC Glucose (mg/dL) 115 H 125 H (70-110) mg/dL Calcium 8.1 L (8.7-10.3) mg/dL Vancomycin Trough ug/mL 09/24/24 09/24/24 09/24/24 Range/Units 07:10 11:26 11:50 Glucose (70-110) mg/dL POC Glucose (mg/dL) 137 H 203 H (70-110) mg/dL Calcium (8.7-10.3) mg/dL Vancomycin Trough 31.6 H* ug/mL Microbiology - Last 24 Hours (Table) 09/18/24 10:55 Blood Culture - Final Blood Assessment and Plan (1) Leg wound, right Current Visit: Yes Status: Acute Code(s): S81.801A - UNSPECIFIED OPEN WOUND, RIGHT LOWER LEG, INITIAL ENCOUNTER SNOMED Code(s): 40367483490737561 (2) Wound cellulitis Current Visit: Yes Status: Acute Code(s): L03.90 - CELLULITIS, UNSPECIFIED SNOMED Code(s): 491371460 Plan: 1patient presented to hospital with increasing swelling pain and redness of the right lower extremity in this patient who did have a history of necrotizing infection to the right leg requiring multiple surgery currently dealing with a large wound with a recent outpatient culture positive for strep MRSA and Pseudomonas now presenting with worsening swelling and weakness possibly cardiac etiology and is being monitored by cardiology 2patient is afebrile, white count is normal and blood culture has been negative 3patient did have normal creatinine but Vanco trough is elevated high risk of nephrotoxicity will discontinue vancomycin continue cefepime and Flagyl while inpatient however will be discontinued on discharge no need for any antibiotics on discharge Dictation was produced using [employer] dictation software. please excuse any grammatical, word or spelling errors.
[2024-09-24 17:03] LABS: Glucose,Whole Blood 215 mg/dL (70-110)
[2024-09-24] MEDS: SACUBITRIL/VALSARTAN 24 MG-26 MG TABLET PO SCH (20:16)
[2024-09-24 20:32] LABS: Glucose,Whole Blood 290 mg/dL (70-110)
[2024-09-25 07:07] LABS: Glucose,Whole Blood 214 mg/dL (70-110)
[2024-09-25 09:34] LABS: Blood Urea Nitrogen 17.5 mg/dL (9.0-27.0); Calcium 8.3 mg/dL (8.7-10.3); Carbon Dioxide 28.6 mmol/L (21.6-31.8); Chloride 99 mmol/L (96-109); Glucose 220 mg/dL (70-110); Potassium 4.3 mmol/L (3.5-5.5); Sodium 137 mmol/L (135-145)
[2024-09-25] MEDS: metOLazone 5 MG TAB PO ONE (11:13)
--- NOTE | 2024-09-25 11:19 | P.PN ---
Subjective HISTORY OF PRESENT ILLNESS: This is a 43-year-old male patient of Dr. Abad last seen in the office in January 2021 with past medical history of hypertension, uncontrolled diabetes mellitus type 2, obesity, family history of premature coronary artery disease, history of coronary artery disease status post [facility] MAT[facility]DA and PCI of the LAD and RCA, ischemic cardiomyopathy with EF 35 to 40%, chronic atrial fibrillation. We have been asked to evaluate the patient for CHF. Patient states that he has had a chronic wound on his right leg going on 8 to 9 months. He states he has had multiple surgeries done on the wounds by Dr. Wright. Patient had a PICC line placed 3 to 4 weeks ago and is currently on oral antibiotics in the outpatient setting. Patient has had increased weakness generalized. He has been following in the wound center on a regular basis and had a wound VAC in place. He states he has had increased edema all over his body. He denies increased shortness of breath. Blood pressure 129/82, heart rate 60, pulse ox 94% on room air. Patient has been started on IV Lasix 20 mg every 12 hours. -EKG: None -Chest x-ray: No acute process. Cardiomegaly. -Laboratory studies: WBC 7.6, hemoglobin 8.5 electrolytes are normal. Renal fun ction normal with BUN 16 creatinine 0.8. Hemoglobin A1c 13.3. Alkaline phosphatase 383. proBNP 4440. -Home cardiac medications: Eliquis 5 mg twice daily, aspirin 81 mg daily, atorvastatin 80 mg daily, Coreg 25 mg twice daily, Nitrostat. -Echocardiogram this admission revealed EF 30 to 35%, mild to moderate mitral and tricuspid regurgitation, small pericardial effusion, mild pulmonary hypertension, mild aortic dilatation at the level of sinus of Valsalva. 09/21/2024 Patient was seen and examined resting comfortably in bed. Continues to have edema, mildly improving. Wound VAC is in place. Hemoglobin 8.0, renal function is stable. Remains in a negative fluid balance 09/22/24 Patient was seen and examined resting comfortably in bed. He feels his breathing and edema have mildly improved. Wound VAC remains in place. Globin is stable at 8 and kidney function remains stable. He remains on IV Lasix and continues to be in a negative fluid balance with good urine output. He feels somewhat nauseous today and feels it is related to his blood sugar being 104 which normally runs in the 400 range at home. 09/23/2024 Patient examined this morning the bedside. Patient currently denies chest pain or pressure. He denies shortness of breath. Patient continues to have lower extremity edema. Vital signs are stable. Blood pressure with systolic readings between 233301. Kidney function stable today with a creatinine of 0.8. Repeat BNP performed yesterday 1881, improved from admission of 4440. Patient remains on IV Lasix 40 mg twice a day. 09/24/2024 Patient examined this morning at the bedside. Patient denies any chest pain or pressure. He reports mild shortness of breath. He continues to have lower extremity edema. He remains on IV Lasix 40 mg twice a day. BUN 16. Creatinine 0.9. Vital signs are stable. Blood pressure 133/84. 09/25/2024 Patient examined this morning at the bedside. Patient currently denies any chest pain or pressure. He continues to have lower extremity edema. He remains on Lasix 40 mg every 12 hours. BUN 17.5. Creatinine 1.0. Vital signs are stable. Patient states he has not been out of bed due to his wound VAC. Patient is hoping to be discharged home today. PHYSICAL EXAM: VITAL SIGNS: Reviewed. GENERAL: Well-developed in no acute distress. NECK: Supple. No JVD or thyromegaly LUNGS: Respirations even and unlabored. Lungs essentially clear to auscultation bilaterally. HEART: Regular rate and rhythm. S1 and S2 heard. EXTREMITIES: Normal range of motion. No clubbing or cyanosis. Peripheral pulses intact. Bilateral lower extremity pitting edema noted. Wound VAC noted to right lower extremity. ASSESSMENT: Right lower extremity wounds, chronic, failed outpatient treatment Acute on chronic congestive heart failure with reduced EF, 30 to 35% Paroxysmal atrial fibrillation, currently maintaining sinus mechanism Coronary artery disease status post NSTEMI and PCI of the LAD and RCA Ischemic cardiomyopathy with previous EF of 30 to 35% Hypertension Uncontrolled diabetes with A1c of 13 Obesity with BMI of 34 Noncompliance with follow-up PLAN: Continue current cardiac medications including Eliquis, aspirin, atorvastatin, carvedilol, Farxiga, Aldactone, and Entresto Give 1 dose of Zaroxolyn 5 mg x 1 Continue IV Lasix 40 mg every 12 hours. If patient is discharged home today, recommend Bumex 1 mg PO BID at the time of discharge Daily weights, accurate intake and output, and monitoring of kidney function Increase activity as tolerated. Patient should be OOB 3-4x/day. Further recommendations pending patient course Nurse practitioner note has been reviewed by physician. Signing provider agrees with the documented findings, assessment, and plan of care documented by MACHINE SETTER SHEET METAL as a scribe. Objective - Vital Signs Vital signs: Vital Signs Temp 99 F 09/25/24 07:44 Pulse 69 09/25/24 07:44 Resp 15 09/25/24 07:44 BP 152/88 09/25/24 07:44 Pulse Ox 97 09/25/24 07:44 FiO2 Intake & Output 09/24/24 09/25/24 09/25/24 18:59 06:59 18:59 Intake Total 240 Output Total 500 2200 Balance -500 -1960 Weight 145 kg 150 kg Intake: Oral 240 Output: Drainage 500 Right calf and dorsal 500 foot Urine 2200 Other: Voiding Method Urinal # Voids 1 - Labs CBC & Chem 7: 09/22/24 05:23 09/25/24 04:35 Labs: Abnormal Lab Results - Last 24 Hours (Table) 09/24/24 09/24/24 09/24/24 Range/Units 11:26 11:50 17:01 Glucose (70-110) mg/dL POC Glucose (mg/dL) 203 H 215 H (70-110) mg/dL Calcium (8.7-10.3) mg/dL Vancomycin Trough 31.6 H* ug/mL 09/24/24 09/25/24 09/25/24 Range/Units 20:30 04:35 07:06 Glucose 220 H (70-110) mg/dL POC Glucose (mg/dL) 290 H 214 H (70-110) mg/dL Calcium 8.3 L (8.7-10.3) mg/dL Vancomycin Trough ug/mL
[2024-09-25 12:09] LABS: Glucose,Whole Blood 270 mg/dL (70-110)
--- NOTE | 2024-09-25 12:56 | P.PN ---
Subjective patient is a 43-year-old gentleman past medical history significant for hyperlipidemia, diabetes mellitus, right lower extremity fasciotomy with wound VAC placement who presented the ER because of increasing weakness and swelling of right lower extremity. Patient had multiple surgeries on his right leg and initially was getting antibiotics for ESBL E. coli. Patient was following up outpatient at the wound care center and had a recent wound culture done which showed Pseudomonas, Streptococcus electrically and MRSA, and was prescribed oral antibiotics. Patient was noticing for the last week he has been getting more weak and has noticed that his lower extremities were getting swollen. Patient also complained abdominal distention. Patient denied any fever or chills. There was no complaint of chest pain or shortness of breath. Patient was seen in the wound care clinic and was sent to the ER Initial lab work done in the ER showed WBC 7.4, hemoglobin 10, platelet count 366, sodium 130, potassium 5.2, BUN 18, creatinine 0.58, glucose 300, lactate 1.5, calcium 8.9, magnesium 1.6, alk phos 382, proBNP 4440 albumin 3 X-ray tibia and fibula showed no acute osseous abnormality, soft tissue changes in the medial right foreleg Chest x-ray done in the ER showed no acute cardiopulmonary process Patient admitted to internal medicine service 09/21. Patient seen and examined. Swelling of lower extremity has improved, still has groin swelling. 2D echo done showed impaired LV function of 35%, mild to moderate mitral and tricuspid regurg with small pericardial effusion and mild pulmonary hypertension 09/22. Patient seen and examined. Swelling of lower extremities is improving. Denies any shortness of breath at rest. Vital signs stable. Blood work done showed WBC 5.82, hemoglobin 8, sodium 132, potassium 3.8, BUN 18, creatinine 0.70 proBNP 1882 09/23 This is a pleasant 43 years old male with chronic right leg wound and follow-up with the wound clinic who sent him to the hospital because of his right leg wound. He has wound VAC in place, his right lower extremity is warm swollen to touch. Patient evaluated by ID team and he is on IV cefepime Flagyl and IV vancomycin Also patient has evidence of CHF with treatment with IV Lasix 40 mg twice daily His echocardiogram showed ejection fraction 30 to 35% He is on Eliquis for his A-fib His girlfriend at bedside after patient gave verbal consent 09/24 His right leg infection looks much better compared to yesterday is less swollen tender or redness Wound VAC remains on the space he remains on broad-spectrum antibiotics. Infectious disease team cleared him for discharge. However cardiology team added some medication like Entresto and will going to monitor labs tomorrow Also discussed case with case resource manager/rn social services. The facility has accepted him pending insurance authorization I talked with the plan with the patient and he is agreeable for possible dischar ge in 24 to 48 hours if everything stable and improving 09/25 Patient still with bilateral lower extremity swelling. He is currently on IV Lasix for milligram twice daily, extra dose of Zaroxolyn is added. Also Entresto was added yesterday Repeat labs from today are stable He still have getting wound VAC in his right lower extremity, still swollen but warmth and redness. Patient supposed to go to subacute rehab but however he lost his insurance because he lost his job. Plan is with the rn social services trying to apply for Medicaid for him. In the meantime remains on broad-spectrum antibiotic. Plan discussed with the patient and he is agreeable Objective - Vital Signs Vital signs: Vital Signs Temp 99 F 09/25/24 07:44 Pulse 69 09/25/24 07:44 Resp 15 09/25/24 07:44 BP 152/88 09/25/24 07:44 Pulse Ox 97 09/25/24 07:44 FiO2 Intake & Output 09/24/24 09/25/24 09/25/24 18:59 06:59 18:59 Intake Total 240 Output Total 500 2200 Balance -500 -1959 Weight 145 kg 150 kg Intake: Oral 240 Output: Drainage 500 Right calf and dorsal 500 foot Urine 2200 Other: Voiding Method Urinal # Voids 1 - Exam -Physical exam GENERAL: The patient is alert and oriented x3, not in any acute distress. Well developed, well nourished. Obese HEENT: Pupils are round and equally reacting to light. EOMI. No scleral icterus. No conjunctival pallor. Normocephalic, atraumatic. No pharyngeal erythema. No thyromegaly. CARDIOVASCULAR: S1 and S2 present. No murmurs, rubs, or gallops. PULMONARY: Chest is clear to auscultation, no wheezing , no crackles. ABDOMEN: Soft, nontender, nondistended, normoactive bowel sounds. No palpable organomegaly. MUSCULOSKELETAL: No joint swelling or deformity. EXTREMITIES: No cyanosis, clubbing, or pedal edema. -NEUROLOGICAL: Gross neurological examination did not reveal any focal deficits. Large right leg wound posteriorly and medially with wound VAC in place SKIN: No rashes. no petechiae. - Labs CBC & Chem 7: 09/22/24 05:23 09/25/24 04:35 Labs: Abnormal Lab Results - Last 24 Hours (Table) 09/24/24 09/24/24 09/24/24 Range/Units 11:26 17:01 20:30 Glucose (70-110) mg/dL POC Glucose (mg/dL) 215 H 290 H (70-110) mg/dL Calcium (8.7-10.3) mg/dL Vancomycin Trough 31.6 H* ug/mL 09/25/24 09/25/24 09/25/24 Range/Units 04:35 07:06 12:08 Glucose 220 H (70-110) mg/dL POC Glucose (mg/dL) 214 H 270 H (70-110) mg/dL Calcium 8.3 L (8.7-10.3) mg/dL Vancomycin Trough ug/mL Assessment and Plan Assessment: Right lower extremity cellulitis Chronic right leg wound with wound VAC Cardiomyopathy, EF 30 to 35% Acute on chronic systolic CHF Generalized anasarca Insulin-dependent diabetes mellitus Hypertension Hyperlipidemia Atrial fibrillation Plan: Continue with IV Lasix 40 mg twice daily Continue with antibiotics as per ID team, currently placed on IV cefepime, Flagyl and IV vancomycin Continue with wound VAC ID team and cardiology team on the case Further recommendation based on the clinical course GI prophylaxis: Protonix DVT prophylaxis Eliquis Patient will go to ECF upon discharge
--- NOTE | 2024-09-25 15:44 | P.PN ---
Subjective Progress Note Date: 09/25/24 Principal diagnosis: Reason for follow-up is right lower extremity wound Patient is a 43-year-old male with a past medical history significant for atrial fibrillation coronary disease diabetes mellitus hypertension hyperlipidemia in this patient also have a history of necrotizing infection to the right leg requiring multiple surgeries has completed course of IV antibiotic for his ESBL infection and was on oral Cipro and Bactrim with a recent culture positive for Pseudomonas and MRSA presented to hospital with weakness and worsening swelling. On today's evaluation that is 09/25/2024,the patient denies any fever or any chills, patient is breathing comfortably on room air, the patient denies chest pain shortness of breath and no significant cough, patient denies abdominal pain, no nausea vomiting or diarrhea. No pain in the right lower extremity. Patient did have a creatinine 1.0 no CBC was done today Objective - Vital Signs Vital signs: Vital Signs Temp 99 F 09/25/24 07:44 Pulse 69 09/25/24 07:44 Resp 15 09/25/24 07:44 BP 152/88 09/25/24 07:44 Pulse Ox 97 09/25/24 07:44 FiO2 Intake & Output 09/24/24 09/25/24 09/25/24 18:59 06:59 18:59 Intake Total 240 Output Total 500 2200 Balance -500 -1959 Weight 145 kg 150 kg Intake: Oral 240 Output: Drainage 500 Right calf and dorsal 500 foot Urine 2200 Other: Voiding Method Urinal # Voids 1 - Exam GENERAL DESCRIPTION: Middle-age male lying in bed in no distress RESPIRATORY SYSTEM: Unlabored breathing , decreased breath sounds at bases HEART: S1 S2 regular rate and rhythm , ABDOMEN: Soft , no tenderness EXTREMITIES: Right leg wound covered with a wound VAC - Labs CBC & Chem 7: 09/22/24 05:23 09/25/24 04:35 Labs: Abnormal Lab Results - Last 24 Hours (Table) 09/24/24 09/24/24 09/24/24 Range/Units 11:26 17:01 20:30 Glucose (70-110) mg/dL POC Glucose (mg/dL) 215 H 290 H (70-110) mg/dL Calcium (8.7-10.3) mg/dL Vancomycin Trough 31.6 H* ug/mL 02/26/25 02/26/25 02/26/25 Range/Units 04:35 07:06 12:08 Glucose 220 H (70-110) mg/dL POC Glucose (mg/dL) 214 H 270 H (70-110) mg/dL Calcium 8.3 L (8.7-10.3) mg/dL Vancomycin Trough ug/mL Assessment and Plan (1) Leg wound, right Current Visit: Yes Status: Acute Code(s): S81.801A - UNSPECIFIED OPEN WOUND, RIGHT LOWER LEG, INITIAL ENCOUNTER SNOMED Code(s): 88353421232046039 (2) Wound cellulitis Current Visit: Yes Status: Acute Code(s): L03.90 - CELLULITIS, UNSPECIFIED SNOMED Code(s): 825173681 Plan: 1patient presented to hospital with increasing swelling pain and redness of the right lower extremity in this patient who did have a history of necrotizing infection to the right leg requiring multiple surgery currently dealing with a large wound with a recent outpatient culture positive for strep MRSA and Pseudomonas now presenting with worsening swelling and weakness possibly cardiac etiology and is being monitored by cardiology 2patient is afebrile, white count is normal and blood culture has been negative 3patient currently being treated cefepime and Flagyl while inpatient and continue local wound care with wound VAC Dictation was produced using [employer] dictation software. please excuse any grammatical, word or spelling errors. Time with Patient: Less than 30
[2024-09-25 17:51] LABS: Glucose,Whole Blood 236 mg/dL (70-110)
[2024-09-25 20:25] LABS: Glucose,Whole Blood 244 mg/dL (70-110)
[2024-09-26 07:25] LABS: Glucose,Whole Blood 227 mg/dL (70-110)
--- NOTE | 2024-09-26 09:55 | P.PN ---
Subjective HISTORY OF PRESENT ILLNESS: This is a 43-year-old male patient of Dr. Abad last seen in the office in January 2021 with past medical history of hypertension, uncontrolled diabetes mellitus type 2, obesity, family history of premature coronary artery disease, history of coronary artery disease status post ST MATILDA and PCI of the LAD and RCA, ischemic cardiomyopathy with EF 35 to 40%, chronic atrial fibrillation. We have been asked to evaluate the patient for CHF. Patient states that he has had a chronic wound on his right leg going on 8 to 9 months. He states he has had multiple surgeries done on the wounds by Dr. Wright. Patient had a PICC line placed 3 to 4 weeks ago and is currently on oral antibiotics in the outpatient setting. Patient has had increased weakness generalized. He has been following in the wound center on a regular basis and had a wound VAC in place. He states he has had increased edema all over his body. He denies increased shortness of breath. Blood pressure 129/82, heart rate 60, pulse ox 94% on room air. Patient has been started on IV Lasix 20 mg every 12 hours. -EKG: None -Chest x-ray: No acute process. Cardiomegaly. -Laboratory studies: WBC 7.6, hemoglobin 8.5 electrolytes are normal. Renal fun ction normal with BUN 16 creatinine 0.8. Hemoglobin A1c 13.3. Alkaline phosphatase 383. proBNP 4440. -Home cardiac medications: Eliquis 5 mg twice daily, aspirin 81 mg daily, atorvastatin 80 mg daily, Coreg 25 mg twice daily, Nitrostat. -Echocardiogram this admission revealed EF 30 to 35%, mild to moderate mitral and tricuspid regurgitation, small pericardial effusion, mild pulmonary hypertension, mild aortic dilatation at the level of sinus of Valsalva. 09/21/2024 Patient was seen and examined resting comfortably in bed. Continues to have edema, mildly improving. Wound VAC is in place. Hemoglobin 8.0, renal function is stable. Remains in a negative fluid balance 09/22/24 Patient was seen and examined resting comfortably in bed. He feels his breathing and edema have mildly improved. Wound VAC remains in place. Globin is stable at 8 and kidney function remains stable. He remains on IV Lasix and continues to be in a negative fluid balance with good urine output. He feels somewhat nauseous today and feels it is related to his blood sugar being 104 which normally runs in the 400 range at home. 09/23/2024 Patient examined this morning the bedside. Patient currently denies chest pain or pressure. He denies shortness of breath. Patient continues to have lower extremity edema. Vital signs are stable. Blood pressure with systolic readings between [id number]. Kidney function stable today with a creatinine of 0.8. Repeat BNP performed yesterday 1881, improved from admission of 4440. Patient remains on IV Lasix 40 mg twice a day. 09/24/2024 Patient examined this morning at the bedside. Patient denies any chest pain or pressure. He reports mild shortness of breath. He continues to have lower extremity edema. He remains on IV Lasix 40 mg twice a day. BUN 16. Creatinine 0.9. Vital signs are stable. Blood pressure 133/84. 09/25/2024 Patient examined this morning at the bedside. Patient currently denies any chest pain or pressure. He continues to have lower extremity edema. He remains on Lasix 40 mg every 12 hours. BUN 17.5. Creatinine 1.0. Vital signs are stable. Patient states he has not been out of bed due to his wound VAC. Patient is hoping to be discharged home today. 09/26/2024 Patient examined this morning at the bedside. Patient currently denies chest pain or pressure. He denies shortness of breath. Patient reports improvement in his lower extremity edema and also has scrotal edema. Patient received a dose of Zaroxolyn yesterday in addition to his IV Lasix and put out 8-1/2 L of urine. Kidney function from this morning is pending. PHYSICAL EXAM: VITAL SIGNS: Reviewed. GENERAL: Well-developed in no acute distress. NECK: Supple. No JVD or thyromegaly LUNGS: Respirations even and unlabored. Lungs essentially clear to auscultation bilaterally. HEART: Regular rate and rhythm. S1 and S2 heard. EXTREMITIES: Normal range of motion. No clubbing or cyanosis. Peripheral pulses intact. Bilateral lower extremity pitting edema noted. Wound VAC noted to right lower extremity. ASSESSMENT: Right lower extremity wounds, chronic, failed outpatient treatment Acute on chronic congestive heart failure with reduced EF, 30 to 35% Paroxysmal atrial fibrillation, currently maintaining sinus mechanism Coronary artery disease status post NSTEMI and PCI of the LAD and RCA Ischemic cardiomyopathy with previous EF of 30 to 35% Hypertension Uncontrolled diabetes with A1c of 13 Obesity with BMI of 34 Noncompliance with follow-up PLAN: Continue current cardiac medications including Eliquis, aspirin, atorvastatin, carvedilol, Farxiga, Aldactone, and Entresto Continue Zaroxolyn 5 mg for the next 3 days then discontinue Discontinue IV Lasix. Begin oral Bumex 1 mg twice a day Daily weights, accurate intake and output, and monitoring of kidney function Increase activity as tolerated. Patient should be OOB 3-4x/day. Patient is stable for discharge home today from a cardiac standpoint Nurse practitioner note has been reviewed by physician. Signing provider agrees with the documented findings, assessment, and plan of care documented by SECURITY TRAINER as a scribe. Objective - Vital Signs Vital signs: Vital Signs Temp 98.6 F 09/26/24 01:30 Pulse 72 09/26/24 01:30 Resp 16 09/26/24 01:30 BP 130/86 09/26/24 01:30 Pulse Ox 95 09/26/24 01:30 FiO2 Intake & Output 09/25/24 09/26/24 09/26/24 18:59 06:59 18:59 Intake Total 540 360 Output Total 4300 4275 Balance -3760 -3915 Weight 157.5 kg Intake: Oral 540 360 Output: Drainage 900 Right calf and dorsal 900 foot Urine 4300 3375 Other: Voiding Method Urinal - Labs CBC & Chem 7: 09/22/24 05:23 09/25/24 04:35 Labs: Abnormal Lab Results - Last 24 Hours (Table) 09/25/24 09/25/24 09/25/24 Range/Units 12:08 17:51 20:23 POC Glucose (mg/dL) 270 H 236 H 244 H (70-110) mg/dL 09/26/24 Range/Units 07:23 POC Glucose (mg/dL) 227 H (70-110) mg/dL
[2024-09-26] MEDS: metOLazone 5 MG TAB PO SCH (10:36)
[2024-09-26] MEDS: BUMETANIDE 1 MG TAB PO SCH (10:37)
[2024-09-26 11:25] LABS: Blood Urea Nitrogen 17.8 mg/dL (9.0-27.0); Chloride 99 mmol/L (96-109); Glucose 234 mg/dL (70-110); Potassium 4.3 mmol/L (3.5-5.5); Sodium 137 mmol/L (135-145)
[2024-09-26 11:26] LABS: Calcium 8.4 mg/dL (8.7-10.3); Carbon Dioxide 30.9 mmol/L (21.6-31.8)
[2024-09-26 12:17] LABS: Glucose,Whole Blood 236 mg/dL (70-110)
[2024-09-26 17:15] LABS: Glucose,Whole Blood 256 mg/dL (70-110)
[2024-09-26] MEDS: INSULIN LISPRO (HumaLOG) 100 UNIT/ML 10 mL VL SQ SCH (18:08)
--- NOTE | 2024-09-26 18:58 | P.PN ---
Subjective patient is a 43-year-old gentleman past medical history significant for hyperlipidemia, diabetes mellitus, right lower extremity fasciotomy with wound VAC placement who presented the ER because of increasing weakness and swelling of right lower extremity. Patient had multiple surgeries on his right leg and initially was getting antibiotics for ESBL E. coli. Patient was following up outpatient at the wound care center and had a recent wound culture done which showed Pseudomonas, Streptococcus electrically and MRSA, and was prescribed oral antibiotics. Patient was noticing for the last week he has been getting more weak and has noticed that his lower extremities were getting swollen. Patient also complained abdominal distention. Patient denied any fever or chills. There was no complaint of chest pain or shortness of breath. Patient was seen in the wound care clinic and was sent to the ER Initial lab work done in the ER showed WBC 7.4, hemoglobin 10, platelet count 366, sodium 130, potassium 5.2, BUN 18, creatinine 0.58, glucose 300, lactate 1.5, calcium 8.9, magnesium 1.6, alk phos 382, proBNP 4440 albumin 3 X-ray tibia and fibula showed no acute osseous abnormality, soft tissue changes in the medial right foreleg Chest x-ray done in the ER showed no acute cardiopulmonary process Patient admitted to internal medicine service 09/21. Patient seen and examined. Swelling of lower extremity has improved, still has groin swelling. 2D echo done showed impaired LV function of 35%, mild to moderate mitral and tricuspid regurg with small pericardial effusion and mild pulmonary hypertension 09/22. Patient seen and examined. Swelling of lower extremities is improving. Denies any shortness of breath at rest. Vital signs stable. Blood work done showed WBC 5.82, hemoglobin 8, sodium 132, potassium 3.8, BUN 18, creatinine 0.70 proBNP 1882 09/23 This is a pleasant 43 years old male with chronic right leg wound and follow-up with the wound clinic who sent him to the hospital because of his right leg wound. He has wound VAC in place, his right lower extremity is warm swollen to touch. Patient evaluated by ID team and he is on IV cefepime Flagyl and IV vancomycin Also patient has evidence of CHF with treatment with IV Lasix 40 mg twice daily His echocardiogram showed ejection fraction 30 to 35% He is on Eliquis for his A-fib His girlfriend at bedside after patient gave verbal consent 09/24 His right leg infection looks much better compared to yesterday is less swollen tender or redness Wound VAC remains on the space he remains on broad-spectrum antibiotics. Infectious disease team cleared him for discharge. However cardiology team added some medication like Entresto and will going to monitor labs tomorrow Also discussed case with lining caser/adoption social worker. The facility has accepted him pending insurance authorization I talked with the plan with the patient and he is agreeable for possible dischar ge in 24 to 48 hours if everything stable and improving 09/25 Patient still with bilateral lower extremity swelling. He is currently on IV Lasix for milligram twice daily, extra dose of Zaroxolyn is added. Also Entresto was added yesterday Repeat labs from today are stable He still have getting wound VAC in his right lower extremity, still swollen but warmth and redness. Patient supposed to go to subacute rehab but however he lost his insurance because he lost his job. Plan is with the adoption social worker trying to apply for Medicaid for him. In the meantime remains on broad-spectrum antibiotic. Plan discussed with the patient and he is agreeable 09/26 Patient is clinically doing well He still requiring more diuresis given swelling in his lower extremities He was placed on Bumex 1 mg twice daily plus Zaroxolyn 5 mg once daily x 3 [address] in [address] continue with antibiotics Patient pending placement Objective - Vital Signs Vital signs: Vital Signs Temp 98.3 F 09/26/24 07:19 Pulse 71 09/26/24 07:19 Resp 17 09/26/24 07:19 BP 135/88 09/26/24 07:19 Pulse Ox 96 09/26/24 07:19 FiO2 Intake & Output 09/25/24 09/26/24 09/26/24 18:59 06:59 18:59 Intake Total 540 360 720 Output Total 4300 4275 Balance -3760 -3910 720 Weight 157.5 kg Intake: Oral 540 360 720 Output: Drainage 900 Right calf and dorsal 900 foot Urine 4300 3375 Other: Voiding Method Urinal - Exam -Physical exam GENERAL: The patient is alert and oriented x3, not in any acute distress. Well developed, well nourished. Obese HEENT: Pupils are round and equally reacting to light. EOMI. No scleral icterus. No conjunctival pallor. Normocephalic, atraumatic. No pharyngeal erythema. No thyromegaly. CARDIOVASCULAR: S1 and S2 present. No murmurs, rubs, or gallops. PULMONARY: Chest is clear to auscultation, no wheezing , no crackles. ABDOMEN: Soft, nontender, nondistended, normoactive bowel sounds. No palpable organomegaly. MUSCULOSKELETAL: No joint swelling or deformity. EXTREMITIES: No cyanosis, clubbing, or pedal edema. -NEUROLOGICAL: Gross neurological examination did not reveal any focal deficits. Large right leg wound posteriorly and medially with wound VAC in place SKIN: No rashes. no petechiae. - Labs CBC & Chem 7: 09/22/24 05:23 09/26/24 06:29 Labs: Abnormal Lab Results - Last 24 Hours (Table) 09/25/24 09/25/24 09/26/24 Range/Units 17:51 20:23 06:29 Glucose 234 H (70-110) mg/dL POC Glucose (mg/dL) 236 H 244 H (70-110) mg/dL Calcium 8.4 L (8.7-10.3) mg/dL 09/26/24 09/26/24 Range/Units 07:23 12:15 Glucose (70-110) mg/dL POC Glucose (mg/dL) 227 H 236 H (70-110) mg/dL Calcium (8.7-10.3) mg/dL Assessment and Plan Assessment: Right lower extremity cellulitis Chronic right leg wound with wound VAC Cardiomyopathy, EF 30 to 35% Acute on chronic systolic CHF Generalized anasarca Insulin-dependent diabetes mellitus Hypertension Hyperlipidemia Atrial fibrillation Plan: Continue with IV Lasix 40 mg twice daily Continue with antibiotics as per ID team, currently placed on IV cefepime, Flag yl and IV vancomycin Continue with wound VAC ID team and cardiology team on the case Further recommendation based on the clinical course GI prophylaxis: Protonix DVT prophylaxis Eliquis Patient will go to ECF upon discharge
[2024-09-26 20:07] LABS: Glucose,Whole Blood 246 mg/dL (70-110)
[2024-09-27 07:25] LABS: Glucose,Whole Blood 148 mg/dL (70-110)
--- NOTE | 2024-09-27 11:02 | P.PN ---
Subjective patient is a 43-year-old gentleman past medical history significant for hyperlipidemia, diabetes mellitus, right lower extremity fasciotomy with wound VAC placement who presented the ER because of increasing weakness and swelling of right lower extremity. Patient had multiple surgeries on his right leg and initially was getting antibiotics for ESBL E. coli. Patient was following up outpatient at the wound care center and had a recent wound culture done which showed Pseudomonas, Streptococcus electrically and MRSA, and was prescribed oral antibiotics. Patient was noticing for the last week he has been getting more weak and has noticed that his lower extremities were getting swollen. Patient also complained abdominal distention. Patient denied any fever or chills. There was no complaint of chest pain or shortness of breath. Patient was seen in the wound care clinic and was sent to the ER Initial lab work done in the ER showed WBC 7.4, hemoglobin 10, platelet count 366, sodium 130, potassium 5.2, BUN 18, creatinine 0.58, glucose 300, lactate 1.5, calcium 8.9, magnesium 1.6, alk phos 382, proBNP 4440 albumin 3 X-ray tibia and fibula showed no acute osseous abnormality, soft tissue changes in the medial right foreleg Chest x-ray done in the ER showed no acute cardiopulmonary process Patient admitted to internal medicine service 09/21. Patient seen and examined. Swelling of lower extremity has improved, still has groin swelling. 2D echo done showed impaired LV function of 35%, mild to moderate mitral and tricuspid regurg with small pericardial effusion and mild pulmonary hypertension 09/22. Patient seen and examined. Swelling of lower extremities is improving. Denies any shortness of breath at rest. Vital signs stable. Blood work done showed WBC 5.82, hemoglobin 8, sodium 132, potassium 3.8, BUN 18, creatinine 0.70 proBNP 1882 09/23 This is a pleasant 43 years old male with chronic right leg wound and follow-up with the wound clinic who sent him to the hospital because of his right leg wound. He has wound VAC in place, his right lower extremity is warm swollen to touch. Patient evaluated by ID team and he is on IV cefepime Flagyl and IV vancomycin Also patient has evidence of CHF with treatment with IV Lasix 40 mg twice daily His echocardiogram showed ejection fraction 30 to 35% He is on Eliquis for his A-fib His girlfriend at bedside after patient gave verbal consent 09/24 His right leg infection looks much better compared to yesterday is less swollen tender or redness Wound VAC remains on the space he remains on broad-spectrum antibiotics. Infectious disease team cleared him for discharge. However cardiology team added some medication like Entresto and will going to monitor labs tomorrow Also discussed case with caseworker intake/social media marketing analyst. The facility has accepted him pending insurance authorization I talked with the plan with the patient and he is agreeable for possible dischar ge in 24 to 48 hours if everything stable and improving 09/25 Patient still with bilateral lower extremity swelling. He is currently on IV Lasix for milligram twice daily, extra dose of Zaroxolyn is added. Also Entresto was added yesterday Repeat labs from today are stable He still have getting wound VAC in his right lower extremity, still swollen but warmth and redness. Patient supposed to go to subacute rehab but however he lost his insurance because he lost his job. Plan is with the social media marketing analyst trying to apply for Medicaid for him. In the meantime remains on broad-spectrum antibiotic. Plan discussed with the patient and he is agreeable 09/26 Patient is clinically doing well He still requiring more diuresis given swelling in his lower extremities He was placed on Bumex 1 mg twice daily plus Zaroxolyn 5 mg once daily x 3 days [address]ound V[address] in place continue with antibiotics Patient pending placement 09/27 pt is doing well he is voiding well also almost every one hour right leg swelling is coming down and wound vac is in place remains on broad spectum antibiotics and on bumex and zaroxylin medically stable pending insurance authorization Objective - Vital Signs Vital signs: Vital Signs Temp 98.2 F 09/27/24 07:15 Pulse 73 09/27/24 07:15 Resp 16 09/27/24 01:35 BP 126/80 09/27/24 07:15 Pulse Ox 94 L 09/27/24 07:15 FiO2 Intake & Output 09/26/24 09/27/24 09/27/24 18:59 06:59 18:59 Intake Total 1800 100 Output Total 1650 9051 947 Balance 047 -4839 -509 Weight 144 kg Intake: Intake, IV Titration 100 Amount Cefepime 2 gm In Sodium 100 Chloride 0.9% 100 ml @ 25 mls/hr IVPB Q8HR [facility] Rx# :[id number] Oral 1800 Output: Drainage 100 Right calf and dorsal 100 foot Urine 1650 3075 800 Other: Voiding Method Urinal Urinal # Voids 1 - Exam -Physical exam GENERAL: The patient is alert and oriented x3, not in any acute distress. Well developed, well nourished. Obese HEENT: Pupils are round and equally reacting to light. EOMI. No scleral icterus. No conjunctival pallor. Normocephalic, atraumatic. No pharyngeal erythema. No thyromegaly. CARDIOVASCULAR: S1 and S2 present. No murmurs, rubs, or gallops. PULMONARY: Chest is clear to auscultation, no wheezing , no crackles. ABDOMEN: Soft, nontender, nondistended, normoactive bowel sounds. No palpable organomegaly. MUSCULOSKELETAL: No joint swelling or deformity. EXTREMITIES: No cyanosis, clubbing, or pedal edema. -NEUROLOGICAL: Gross neurological examination did not reveal any focal deficits. Large right leg wound posteriorly and medially with wound VAC in place SKIN: No rashes. no petechiae. - Labs CBC & Chem 7: 09/22/24 05:23 09/26/24 06:29 Labs: Abnormal Lab Results - Last 24 Hours (Table) 09/26/24 09/26/24 09/26/24 Range/Units 06:29 12:15 17:08 Glucose 234 H (70-110) mg/dL POC Glucose (mg/dL) 236 H 256 H (70-110) mg/dL Calcium 8.4 L (8.7-10.3) mg/dL 09/26/24 09/27/24 Range/Units 20:05 07:18 Glucose (70-110) mg/dL POC Glucose (mg/dL) 246 H 148 H (70-110) mg/dL Calcium (8.7-10.3) mg/dL Assessment and Plan Assessment: Right lower extremity cellulitis Chronic right leg wound with wound VAC Cardiomyopathy, EF 30 to 35% Acute on chronic systolic CHF Generalized anasarca Insulin-dependent diabetes mellitus Hypertension Hyperlipidemia Atrial fibrillation Plan: Continue with IV Lasix 40 mg twice daily Continue with antibiotics as per ID team, currently placed on IV cefepime, Flagyl and IV vancomycin Continue with wound VAC ID team and cardiology team on the case Further recommendation based on the clinical course GI prophylaxis: Protonix DVT prophylaxis Eliquis Patient will go to ECF upon discharge
--- NOTE | 2024-09-27 11:08 | P.PN ---
Subjective HISTORY OF PRESENT ILLNESS: This is a 43-year-old male patient of Dr. Abad last seen in the office in January 2021 with past medical history of hypertension, uncontrolled diabetes mellitus type 2, obesity, family history of premature coronary artery disease, history of coronary artery disease status post ST MATILDA and PCI of the LAD and RCA, ischemic cardiomyopathy with EF 35 to 40%, chronic atrial fibrillation. We have been asked to evaluate the patient for CHF. Patient states that he has had a chronic wound on his right leg going on 8 to 9 months. He states he has had multiple surgeries done on the wounds by Dr. Wright. Patient had a PICC line placed 3 to 4 weeks ago and is currently on oral antibiotics in the outpatient setting. Patient has had increased weakness generalized. He has been following in the wound center on a regular basis and had a wound VAC in place. He states he has had increased edema all over his body. He denies increased shortness of breath. Blood pressure 129/82, heart rate 60, pulse ox 94% on room air. Patient has been started on IV Lasix 20 mg every 12 hours. -EKG: None -Chest x-ray: No acute process. Cardiomegaly. -Laboratory studies: WBC 7.6, hemoglobin 8.5 electrolytes are normal. Renal fun ction normal with BUN 16 creatinine 0.8. Hemoglobin A1c 13.3. Alkaline phosphatase 383. proBNP 4440. -Home cardiac medications: Eliquis 5 mg twice daily, aspirin 81 mg daily, atorvastatin 80 mg daily, Coreg 25 mg twice daily, Nitrostat. -Echocardiogram this admission revealed EF 30 to 35%, mild to moderate mitral and tricuspid regurgitation, small pericardial effusion, mild pulmonary hypertension, mild aortic dilatation at the level of sinus of Valsalva. 09/21/2024 Patient was seen and examined resting comfortably in bed. Continues to have edema, mildly improving. Wound VAC is in place. Hemoglobin 8.0, renal function is stable. Remains in a negative fluid balance 09/22/24 Patient was seen and examined resting comfortably in bed. He feels his breathing and edema have mildly improved. Wound VAC remains in place. Globin is stable at 8 and kidney function remains stable. He remains on IV Lasix and continues to be in a negative fluid balance with good urine output. He feels somewhat nauseous today and feels it is related to his blood sugar being 104 which normally runs in the 400 range at home. 09/23/2024 Patient examined this morning the bedside. Patient currently denies chest pain or pressure. He denies shortness of breath. Patient continues to have lower extremity edema. Vital signs are stable. Blood pressure with systolic readings between [id number]. Kidney function stable today with a creatinine of 0.8. Repeat BNP performed yesterday 1881, improved from admission of 4440. Patient remains on IV Lasix 40 mg twice a day. 09/24/2024 Patient examined this morning at the bedside. Patient denies any chest pain or pressure. He reports mild shortness of breath. He continues to have lower extremity edema. He remains on IV Lasix 40 mg twice a day. BUN 16. Creatinine 0.9. Vital signs are stable. Blood pressure 133/84. 09/25/2024 Patient examined this morning at the bedside. Patient currently denies any chest pain or pressure. He continues to have lower extremity edema. He remains on Lasix 40 mg every 12 hours. BUN 17.5. Creatinine 1.0. Vital signs are stable. Patient states he has not been out of bed due to his wound VAC. Patient is hoping to be discharged home today. 09/26/2024 Patient examined this morning at the bedside. Patient currently denies chest pain or pressure. He denies shortness of breath. Patient reports improvement in his lower extremity edema and also has scrotal edema. Patient received a dose of Zaroxolyn yesterday in addition to his IV Lasix and put out 8-1/2 L of urine. Kidney function from this morning is pending. 09/27/2024 Patient examined this morning at the bedside. Currently denies chest pain or pressure. He denies shortness of breath. He reports decreased swelling in his scrotum and also in his legs. Urine output for the last 24 hours is 4825 cc. PHYSICAL EXAM: VITAL SIGNS: Reviewed. GENERAL: Well-developed in no acute distress. NECK: Supple. No JVD or thyromegaly LUNGS: Respirations even and unlabored. Lungs essentially clear to auscultation bilaterally. HEART: Regular rate and rhythm. S1 and S2 heard. EXTREMITIES: Normal range of motion. No clubbing or cyanosis. Peripheral pulses intact. Bilateral lower extremity pitting edema noted. Wound VAC noted to right lower extremity. ASSESSMENT: Right lower extremity wounds, chronic, failed outpatient treatment Acute on chronic congestive heart failure with reduced EF, 30 to 35% Paroxysmal atrial fibrillation, currently maintaining sinus mechanism Coronary artery disease status post NSTEMI and PCI of the LAD and RCA Ischemic cardiomyopathy with previous EF of 30 to 35% Hypertension Uncontrolled diabetes with A1c of 13 Obesity with BMI of 34 Noncompliance with follow-up PLAN: Continue current cardiac medications including Eliquis, aspirin, atorvastatin, carvedilol, Farxiga, Aldactone, and Entresto Continue Zaroxolyn 5 mg for 3 days total then discontinue Continue oral Bumex 1 mg twice a day Daily weights, accurate intake and output, and monitoring of kidney function Increase activity as tolerated. Patient should be OOB 3-4x/day. Patient is stable for discharge home today from a cardiac standpoint We will sign off. Please reconsult if needed. Nurse practitioner note has been reviewed by physician. Signing provider agrees with the documented findings, assessment, and plan of care documented by S[employer]KEHOUSE WORKER as a scribe. Objective - Vital Signs Vital signs: Vital Signs Temp 98.2 F 09/27/24 07:15 Pulse 73 09/27/24 07:15 Resp 16 09/27/24 01:35 BP 126/80 09/27/24 07:15 Pulse Ox 94 L 09/27/24 07:15 FiO2 Intake & Output 09/26/24 09/27/24 09/27/24 18:59 06:59 18:59 Intake Total 1800 100 Output Total 1650 3175 800 Balance 150 -3075 -800 Weight 144 kg Intake: Intake, IV Titration 100 Amount Cefepime 2 gm In Sodium 100 Chloride 0.9% 100 ml @ 25 mls/hr IVPB Q8HR [facility] Rx# :[id number] Oral 1800 Output: Drainage 100 Right calf and dorsal 100 foot Urine 1650 3075 800 Other: Voiding Method Urinal Urinal # Voids 1 - Labs CBC & Chem 7: 09/22/24 05:23 09/26/24 06:29 Labs: Abnormal Lab Results - Last 24 Hours (Table) 09/26/24 09/26/24 09/26/24 Range/Units 06:29 12:15 17:08 Glucose 234 H (70-110) mg/dL POC Glucose (mg/dL) 236 H 256 H (70-110) mg/dL Calcium 8.4 L (8.7-10.3) mg/dL 09/26/24 09/27/24 Range/Units 20:05 07:18 Glucose (70-110) mg/dL POC Glucose (mg/dL) 246 H 148 H (70-110) mg/dL Calcium (8.7-10.3) mg/dL
[2024-09-27 12:41] LABS: Glucose,Whole Blood 170 mg/dL (70-110)
--- NOTE | 2024-09-27 15:02 | P.PN ---
Subjective Progress Note Date: 09/26/24 Principal diagnosis: Reason for follow-up is right lower extremity wound Patient is a 43-year-old male with a past medical history significant for atrial fibrillation coronary disease diabetes mellitus hypertension hyperlipidemia in this patient also have a history of necrotizing infection to the right leg requiring multiple surgeries has completed course of IV antibiotic for his ESBL infection and was on oral Cipro and Bactrim with a recent culture positive for Pseudomonas and MRSA presented to hospital with weakness and worsening swelling. On today's evaluation that is 09/26/2024,the patient remains to be afebrile, patient is on room air not requiring supplemental oxygen and denies any shortness of breath no chest pain or cough.Patient denies having any nausea or vomiting, no abdominal pain and no diarrhea and pain to the right lower extremity is currently controlled. Patient did have a creatinine 1.0 no CBC was done today Objective - Vital Signs Vital signs: Vital Signs Temp 98.3 F 09/26/24 07:19 Pulse 71 09/26/24 07:19 Resp 17 09/26/24 07:19 BP 135/88 09/26/24 07:19 Pulse Ox 96 09/26/24 07:19 FiO2 Intake & Output 09/25/24 09/26/24 09/26/24 18:59 06:59 18:59 Intake Total 540 360 720 Output Total 4300 4275 Balance -3760 -3915 720 Weight 157.5 kg Intake: Oral 540 360 720 Output: Drainage 900 Right calf and dorsal 900 foot Urine 4300 3375 Other: Voiding Method Urinal - Exam GENERAL DESCRIPTION: Middle-age male lying in bed in no distress RESPIRATORY SYSTEM: Unlabored breathing , decreased breath sounds at bases HEART: S1 S2 regular rate and rhythm , ABDOMEN: Soft , no tenderness EXTREMITIES: Right leg wound covered with a wound VAC - Labs CBC & Chem 7: 09/22/24 05:23 09/26/24 06:29 Labs: Abnormal Lab Results - Last 24 Hours (Table) 09/25/24 09/25/24 09/26/24 Range/Units 17:51 20:23 06:29 Glucose 234 H (70-110) mg/dL POC Glucose (mg/dL) 236 H 244 H (70-110) mg/dL Calcium 8.4 L (8.7-10.3) mg/dL 09/26/24 09/26/24 Range/Units 07:23 12:15 Glucose (70-110) mg/dL POC Glucose (mg/dL) 227 H 236 H (70-110) mg/dL Calcium (8.7-10.3) mg/dL Assessment and Plan (1) Leg wound, right Current Visit: Yes Status: Acute Code(s): S81.801A - UNSPECIFIED OPEN WOUND, RIGHT LOWER LEG, INITIAL ENCOUNTER SNOMED Code(s): 97274062281726408 (2) Wound cellulitis Current Visit: Yes Status: Acute Code(s): L03.90 - CELLULITIS, UNSPECIFIED SNOMED Code(s): 943286226 Plan: 1patient presented to hospital with increasing swelling pain and redness of the right lower extremity in this patient who did have a history of necrotizing infe ction to the right leg requiring multiple surgery currently dealing with a large wound with a recent outpatient culture positive for strep MRSA and Pseudomonas now presenting with worsening swelling and weakness possibly cardiac etiology and is being monitored by cardiology 2patient is afebrile, white count is normal and blood culture has been negative 3patient continue current wound care with wound VAC and continue cefepime and Flagyl Dictation was produced using [employer] dictation software. please excuse any grammatical, word or spelling errors. Time with Patient: Less than 30
--- NOTE | 2024-09-27 15:03 | P.PN ---
Subjective Progress Note Date: 09/27/24 Principal diagnosis: Reason for follow-up is right lower extremity wound Patient is a 43-year-old male with a past medical history significant for atrial fibrillation coronary disease diabetes mellitus hypertension hyperlipidemia in this patient also have a history of necrotizing infection to the right leg requiring multiple surgeries has completed course of IV antibiotic for his ESBL infection and was on oral Cipro and Bactrim with a recent culture positive for Pseudomonas and MRSA presented to hospital with weakness and worsening swelling. On today's evaluation that is 09/27/2024, the patient continues to be afebrile, the patient is on room air and breathing comfortably, the Pt denies having any chest pain or cough, the patient denies having any abdominal pain no vomiting or any diarrhea denies pain to the right lower extremity or any new symptoms. No new labs were obtained today Objective - Vital Signs Vital signs: Vital Signs Temp 98.2 F 09/27/24 13:06 Pulse 74 09/27/24 13:06 Resp 19 09/27/24 13:06 BP 128/84 09/27/24 13:06 Pulse Ox 96 09/27/24 13:06 FiO2 Intake & Output 09/26/24 09/27/24 09/27/24 18:59 06:59 18:59 Intake Total 1800 100 Output Total 1650 3175 1450 Balance 150 -3075 -1450 Weight 144 kg Intake: Intake, IV Titration 100 Amount Cefepime 2 gm In Sodium 100 Chloride 0.9% 100 ml @ 25 mls/hr IVPB Q8HR [facility] Rx# :[id number] Oral 1800 Output: Drainage 100 Right calf and dorsal 100 foot Urine 1650 3075 1450 Other: Voiding Method Urinal Urinal # Voids 1 # Bowel Movements 1 - Exam GENERAL DESCRIPTION: Middle-age male lying in bed in no distress RESPIRATORY SYSTEM: Unlabored breathing , decreased breath sounds at bases HEART: S1 S2 regular rate and rhythm , ABDOMEN: Soft , no tenderness EXTREMITIES: Right leg wound covered with a wound VAC - Labs CBC & Chem 7: 09/22/24 05:23 09/26/24 06:29 Labs: Abnormal Lab Results - Last 24 Hours (Table) 09/26/24 09/26/24 09/27/24 Range/Units 17:08 20:05 07:18 POC Glucose (mg/dL) 256 H 246 H 148 H (70-110) mg/dL 09/27/24 Range/Units 12:39 POC Glucose (mg/dL) 170 H (70-110) mg/dL Assessment and Plan (1) Leg wound, right Current Visit: Yes Status: Acute Code(s): S81.801A - UNSPECIFIED OPEN WOUND, RIGHT LOWER LEG, INITIAL ENCOUNTER SNOMED Code(s): 69964890440957526 (2) Wound cellulitis Current Visit: Yes Status: Acute Code(s): L03.90 - CELLULITIS, UNSPECIFIED SNOMED Code(s): 369818441 Plan: 1patient presented to hospital with increasing swelling pain and redness of the right lower extremity in this patient who did have a history of necrotizing infection to the right leg requiring multiple surgery currently dealing with a large wound with a recent outpatient culture positive for strep MRSA and Pseudomonas now presenting with worsening swelling and weakness possibly cardiac etiology and is being monitored by cardiology 2patient is afebrile, white count is normal and blood culture has been negative, creatinine has been normal currently on cefepime and Flagyl to continue while inpatient Dictation was produced using [employer] dictation software. please excuse any grammatical, word or spelling errors. Time with Patient: Less than 30
[2024-09-27 17:07] LABS: Glucose,Whole Blood 242 mg/dL (70-110)
--- NOTE | 2024-09-27 18:20 | CDI ---
Documentation Clarification Form Date: 09/27/2024 06:19:08 PM From: Krissy Hopkins RN, CCDS Phone: [phone] Admit Date: 09/18/2024 12:12:00 PM Patient Name: Marques Bermeo Visit Number: [id number] Discharge Date: ATTENTION: The Clinical Documentation Specialists (CDI) and [facility] Coding Staff appreciate your assistance in clarifying documentation. Please respond to the clarification below the line at the bottom and electronically sign. The CDI & [facility] Coding staff will review the response and follow-up if needed. Please note: Queries are made part of the Legal Health Record. If you have any questions, please contact the author of this message via ITS. Doctor. Jermaine Louis Wound Cellulitis is documented in your ID consult and subsequent progress notes. Additional clarification regarding the type of cellulitis is requested. History/risk factors: Diabetes Mellitus, right lower extremity with wound VAC placement Clinical Indicators: 43-year-old present to ED with increasing weakness and swelling of right lower extremity with multiple surgeries treated outpatient at the wound care center. X-ray tibia and fibula showed no acute osseous abnormality, soft tissue changes in the medial right foreleg Treatment: Cefepime HCl 2 GM IVPB Q8 HRS Vancomycin (PTD) Flagyl 500 MG PO TID Please clarify the etiology of the cellulitis, if known: [ ] Cellulitis is a diabetic skin complication [X ] Cellulitis is not a diabetic skin complication [ ] Other, please specify: [ ] Unable to determine (Template Last Revised: July 2022) MTDD
[2024-09-27 20:22] LABS: Glucose,Whole Blood 231 mg/dL (70-110)
[2024-09-28 07:06] LABS: Glucose,Whole Blood 185 mg/dL (70-110)
[2024-09-28 12:03] LABS: Glucose,Whole Blood 259 mg/dL (70-110)
--- NOTE | 2024-09-28 15:19 | P.PN ---
Subjective Progress Note Date: 09/28/24 Principal diagnosis: Reason for follow-up is right lower extremity wound Patient is a 43-year-old male with a past medical history significant for atrial fibrillation coronary disease diabetes mellitus hypertension hyperlipidemia in this patient also have a history of necrotizing infection to the right leg requiring multiple surgeries has completed course of IV antibiotic for his ESBL infection and was on oral Cipro and Bactrim with a recent culture positive for Pseudomonas and MRSA presented to hospital with weakness and worsening swelling. On today's evaluation that is 09/28/2024, patient did not have any fever and denies any chills, patient is breathing comfortably on room air, patient with no chest pain or cough patient did not have any abdominal pain nausea vomiting or any loose stools swelling to lower extremity has decreased in intensity. No new lab has been obtained today Objective - Vital Signs Vital signs: Vital Signs Temp 98.0 F 09/28/24 13:07 Pulse 78 09/28/24 13:07 Resp 18 09/28/24 13:07 BP 124/80 09/28/24 13:07 Pulse Ox 96 09/28/24 13:07 FiO2 Intake & Output 09/27/24 09/28/24 09/28/24 18:59 06:59 18:59 Output Total 2049 2199 1800 Balance -2049 -2199 -1799 Weight 145.3 kg Output: Drainage 500 Right calf and dorsal 500 foot Urine 2049 2199 1300 Other: # Bowel Movements 1 - Exam GENERAL DESCRIPTION: Middle-age male lying in bed in no distress RESPIRATORY SYSTEM: Unlabored breathing , decreased breath sounds at bases HEART: S1 S2 regular rate and rhythm , ABDOMEN: Soft , no tenderness EXTREMITIES: Right leg wound covered with a wound VAC - Labs CBC & Chem 7: 09/22/24 05:23 09/26/24 06:29 Labs: Abnormal Lab Results - Last 24 Hours (Table) 09/27/24 09/27/24 09/28/24 Range/Units 17:05 20:19 07:05 POC Glucose (mg/dL) 242 H 231 H 185 H (70-110) mg/dL 09/28/24 Range/Units 12:02 POC Glucose (mg/dL) 259 H (70-110) mg/dL Assessment and Plan (1) Leg wound, right Current Visit: Yes Status: Acute Code(s): S81.801A - UNSPECIFIED OPEN WOUND, RIGHT LOWER LEG, INITIAL ENCOUNTER SNOMED Code(s): 25212796318677659 (2) Wound cellulitis Current Visit: Yes Status: Acute Code(s): L03.90 - CELLULITIS, UNSPECIFIED SNOMED Code(s): 182539579 Plan: 1patient presented to hospital with increasing swelling pain and redness of the right lower extremity in this patient who did have a history of necrotizing infection to the right leg requiring multiple surgery currently dealing with a large wound with a recent outpatient culture positive for strep MRSA and Pse udomonas now presenting with worsening swelling and weakness possibly cardiac etiology and is being monitored by cardiology 2patient is afebrile and blood culture has been negative, 3patient to continue with cefepime and Flagyl while inpatient and monitor clinical course closely Dictation was produced using [employer] dictation software. please excuse any grammatical, word or spelling errors. Time with Patient: Less than 30
--- NOTE | 2024-09-28 15:45 | P.PN ---
Progress Note - Text Interval History: patient is a 43-year-old gentleman past medical history significant for hyperlipidemia, diabetes mellitus, right lower extremity fasciotomy with wound VAC placement who presented the ER because of increasing weakness and swelling of right lower extremity. Patient had multiple surgeries on his right leg and initially was getting antibiotics for ESBL E. coli. Patient was following up outpatient at the wound care center and had a recent wound culture done which showed Pseudomonas, Streptococcus electrically and MRSA, and was prescribed oral antibiotics. Patient was noticing for the last week he has been getting more weak and has noticed that his lower extremities were getting swollen. Patient also complained abdominal distention. Patient denied any fever or chills. There was no complaint of chest pain or shortness of breath. Patient was seen in the wound care clinic and was sent to the ER Initial lab work done in the ER showed WBC 7.4, hemoglobin 10, platelet count 366, sodium 130, potassium 5.2, BUN 18, creatinine 0.58, glucose 300, lactate 1.5, calcium 8.9, magnesium 1.6, alk phos 382, proBNP 4440 albumin 3 X-ray tibia and fibula showed no acute osseous abnormality, soft tissue changes in the medial right foreleg Chest x-ray done in the ER showed no acute cardiopulmonary process Patient admitted to internal medicine service 09/21. Patient seen and examined. Swelling of lower extremity has improved, still has groin swelling. 2D echo done showed impaired LV function of 35%, mild to moderate mitral and tricuspid regurg with small pericardial effusion and mild pulmonary hypertension 09/22. Patient seen and examined. Swelling of lower extremities is improving. Denies any shortness of breath at rest. Vital signs stable. Blood work done showed WBC 5.82, hemoglobin 8, sodium 132, potassium 3.8, BUN 18, creatinine 0.70 proBNP 1882 09/23 This is a pleasant 43 years old male with chronic right leg wound and follow-up with the wound clinic who sent him to the hospital because of his right leg wound. He has wound VAC in place, his right lower extremity is warm swollen to touch. Patient evaluated by ID team and he is on IV cefepime Flagyl and IV vancomycin Also patient has evidence of CHF with treatment with IV Lasix 40 mg twice daily His echocardiogram showed ejection fraction 30 to 35% He is on Eliquis for his A-fib His girlfriend at bedside after patient gave verbal consent 09/24 His right leg infection looks much better compared to yesterday is less swollen tender or redness Wound VAC remains on the space he remains on broad-spectrum antibiotics. Infectious disease team cleared him for discharge. However cardiology team added some medication like Entresto and will going to monitor labs tomorrow Also discussed case with case assembler/social group worker. The facility has accepted him pending insurance authorization I talked with the plan with the patient and he is agreeable for possible discharge in 24 to 48 hours if everything stable and improving 09/25 Patient still with bilateral lower extremity swelling. He is currently on IV Lasix for milligram twice daily, extra dose of Zaroxolyn is added. Also Entresto was added yesterday Repeat labs from today are stable He still have getting wound VAC in his right lower extremity, still swollen but warmth and redness. Patient supposed to go to subacute rehab but however he lost his insurance because he lost his job. Plan is with the social group worker trying to apply for Medicaid for him. In the meantime remains on broad-spectrum antibiotic. Plan discussed with the patient and he is agreeable 09/26 Patient is clinically doing well He still requiring more diuresis given swelling in his lower extremities He was placed on Bumex 1 mg twice daily plus Zaroxolyn 5 mg once daily x 3 days [address]ound VAC in place continue with antibiotics Patient pending placement 09/27 pt is doing well he is voiding well also almost every one hour right leg swelling is coming down and wound vac is in place remains on broad spectum antibiotics and on bumex and zaroxylin medically stable pending insurance authorization 09/28--patient was seen and examined today. No issues overnight. Afebrile, heart rate 78, respiratory rate 18, blood pressure 124/80, saturating 96% on room air. No new labs today. Remains on cefepime and Flagyl, infectious disease following. Anticipate discharge to subacute rehab. Wound VAC in place. Assessment and plan: Left lower extremity cellulitis/wound: History of right lower extremity necrotizing infection: Presented with increasing swelling pain and redness of right lower extremity, has history of necrotizing infection in the right leg requiring multiple surgeries Outpatient culture positive for MRSA Pseudomonas, strep Infectious disease consulted recommended to continue cefepime and Flagyl while inpatient, monitoring closely. Acute on chronic systolic CHF: Cardiomyopathy with EF 30 to 35% Paroxysmal atrial fibrillation: CAD status post PCI of LAD and RCA Hypertension Noncompliance Cardiology consulted Continue home medications Eliquis, aspirin, statin, Coreg, Farxiga, Aldactone, Entresto, Aldactone. Continue Bumex, cardiology recommended Zaroxolyn for 3 days Monitor daily weight and I&O's Diabetes mellitus: Accu-Cheks, diabetic diet Lantus, Humalog. DVT prophylaxis: AC Disposition: PT/OT consulted, anticipate subacute rehab Monitor vital signs and labs Labs and medication were reviewed. Continue same treatment. Further recommendations as per clinical course of the patient PHYSICAL EXAMINATION: GENERAL: The patient is A&O x3, NAD HEENT: EOMI, Sclerae anicteric, Moist Mucous membranes Neck: Supple, Non tender, No JVD PULMONARY: Equal breath souds B/L, No wheezing, No crackles. CARDIOVASCULAR: S1, S2 present. No murmurs, rubs, or gallops. ABDOMEN: Soft, nontender, nondistended, normoactive bowel sounds. No guarding or rebound tenderness. MUSCULOSKELETAL: No edema, No cyanosis. No clubbing. Normal ROM. Intact peripheral pulses. RLE--WV in place NEUROLOGICAL: CN 2-12 grossly intact. No FND Skin: No Rash REVIEW OF SYSTEMS: CONSTITUTIONAL: No fever or chills. CARDIOVASCULAR: No chest pain, palpitations or syncope. PULMONARY: No shortness of breath, no cough, sore throat. GASTROINTESTINAL: No nausea, vomiting, diarrhea, abdominal pain. : No Dysuria, urgency, frequency. Extremities: No edema. NEUROLOGICAL: No headaches, no weakness, or numbness Dictation was produced using [employer] dictation software. please excuse any grammatical, word or spelling errors.
[2024-09-28 17:10] LABS: Glucose,Whole Blood 217 mg/dL (70-110)
[2024-09-28 20:29] LABS: Glucose,Whole Blood 206 mg/dL (70-110)
[2024-09-29 07:07] LABS: Glucose,Whole Blood 204 mg/dL (70-110)
[2024-09-29 12:04] LABS: Glucose,Whole Blood 225 mg/dL (70-110)
--- NOTE | 2024-09-29 13:26 | P.PN ---
Subjective Progress Note Date: 09/29/24 Interval History: patient is a 43-year-old gentleman past medical history significant for hyperlipidemia, diabetes mellitus, right lower extremity fasciotomy with wound VAC placement who presented the ER because of increasing weakness and swelling of right lower extremity. Patient had multiple surgeries on his right leg and initially was getting antibiotics for ESBL E. coli. Patient was following up ou tpatient at the wound care center and had a recent wound culture done which showed Pseudomonas, Streptococcus electrically and MRSA, and was prescribed oral antibiotics. Patient was noticing for the last week he has been getting more weak and has noticed that his lower extremities were getting swollen. Patient also complained abdominal distention. Patient denied any fever or chills. There was no complaint of chest pain or shortness of breath. Patient was seen in the wound care clinic and was sent to the ER Initial lab work done in the ER showed WBC 7.4, hemoglobin 10, platelet count 366, sodium 130, potassium 5.2, BUN 18, creatinine 0.58, glucose 300, lactate 1.5, calcium 8.9, magnesium 1.6, alk phos 382, proBNP 4440 albumin 3 X-ray tibia and fibula showed no acute osseous abnormality, soft tissue changes in the medial right foreleg Chest x-ray done in the ER showed no acute cardiopulmonary process Patient admitted to internal medicine service 09/21. Patient seen and examined. Swelling of lower extremity has improved, still has groin swelling. 2D echo done showed impaired LV function of 35%, mild to moderate mitral and tricuspid regurg with small pericardial effusion and mild pulmonary hypertension 09/22. Patient seen and examined. Swelling of lower extremities is improving. Denies any shortness of breath at rest. Vital signs stable. Blood work done showed WBC 5.82, hemoglobin 8, sodium 132, potassium 3.8, BUN 18, creatinine 0.70 proBNP 1882 09/23 This is a pleasant 43 years old male with chronic right leg wound and follow-up with the wound clinic who sent him to the hospital because of his right leg wound. He has wound VAC in place, his right lower extremity is warm swollen to touch. Patient evaluated by ID team and he is on IV cefepime Flagyl and IV vanc omycin Also patient has evidence of CHF with treatment with IV Lasix 40 mg twice daily His echocardiogram showed ejection fraction 30 to 35% He is on Eliquis for his A-fib His girlfriend at bedside after patient gave verbal consent 09/24 His right leg infection looks much better compared to yesterday is less swollen tender or redness Wound VAC remains on the space he remains on broad-spectrum antibiotics. Infectious disease team cleared him for discharge. However cardiology team added some medication like Entresto and will going to monitor labs tomorrow Also discussed case with supportive employment case manager/social worker aide. The facility has accepted him pending insurance authorization I talked with the plan with the patient and he is agreeable for possible discharge in 24 to 48 hours if everything stable and improving 09/25 Patient still with bilateral lower extremity swelling. He is currently on IV L asix for milligram twice daily, extra dose of Zaroxolyn is added. Also Entresto was added yesterday Repeat labs from today are stable He still have getting wound VAC in his right lower extremity, still swollen but warmth and redness. Patient supposed to go to subacute rehab but however he lost his insurance because he lost his job. Plan is with the social worker aide trying to apply for Medicaid for him. In the meantime remains on broad-spectrum antibiotic. Plan discussed with the patient and he is agreeable 09/26 Patient is clinically doing well He still requiring more diuresis given swelling in his lower extremities He was placed on Bumex 1 mg twice daily plus Zaroxolyn 5 mg once daily x 3 days Wound VAC in place continue with antibiotics Patient pending placement 09/27 pt is doing well he is voiding well also almost every one hour right leg swelling is coming down and wound vac is in place remains on broad spectum antibiotics and on bumex and zaroxylin medically stable pending insurance authorization 09/28--patient was seen and examined today. No issues overnight. Afebrile, he art rate 78, respiratory rate 18, blood pressure 124/80, saturating 96% on room air. No new labs today. Remains on cefepime and Flagyl, infectious disease following. Anticipate discharge to subacute rehab. Wound VAC in place. 09/29--patient was seen and examined today. No issues overnight. Pain is controlled. Afebrile, heart rate 76, respiratory rate 16, blood pressure 110/73, saturating 93% on room air. No new labs. Currently on cefepime and Flagyl. Wound VAC in place, awaiting placement to subacute rehab. Assessment and plan: Left lower extremity cellulitis/wound: History of right lower extremity necrotizing infection: Presented with increasing swelling pain and redness of right lower extremity, has history of necrotizing infection in the right leg requiring multiple surgeries Outpatient culture positive for MRSA Pseudomonas, strep Infectious disease consulted recommended to continue cefepime and Flagyl while inpatient, monitoring closely. Acute on chronic systolic CHF: Cardiomyopathy with EF 30 to 35% Paroxysmal atrial fibrillation: CAD status post PCI of LAD and RCA Hypertension Noncompliance Cardiology consulted Continue home medications Eliquis, aspirin, statin, Coreg, Farxiga, Aldactone, Entresto, Aldactone. Continue Bumex, cardiology recommended Zaroxolyn for 3 days Monitor daily weight and I&O's Diabetes mellitus: Accu-Cheks, diabetic diet Lantus, Humalog. DVT prophylaxis: AC Disposition: Awaiting subacute rehab Monitor vital signs and labs Labs and medication were reviewed. Continue same treatment. Further recommendations as per clinical course of the patient PHYSICAL EXAMINATION: GENERAL: The patient is A&O x3, NAD HEENT: EOMI, Sclerae anicteric, Moist Mucous membranes Neck: Supple, Non tender, No JVD PULMONARY: Equal breath souds B/L, No wheezing, No crackles. CARDIOVASCULAR: S1, S2 present. No murmurs, rubs, or gallops. ABDOMEN: Soft, nontender, nondistended, normoactive bowel sounds. No guarding or rebound tenderness. MUSCULOSKELETAL: No edema, No cyanosis. No clubbing. Normal ROM. Intact peripheral pulses. RLE--WV in place NEUROLOGICAL: CN 2-12 grossly intact. No FND Skin: No Rash REVIEW OF SYSTEMS: CONSTITUTIONAL: No fever or chills. CARDIOVASCULAR: No chest pain, palpitations or syncope. PULMONARY: No shortness of breath, no cough, sore throat. GASTROINTESTINAL: No nausea, vomiting, diarrhea, abdominal pain. : No Dysuria, urgency, frequency. Extremities: No edema. NEUROLOGICAL: No headaches, no weakness, or numbness Dictation was produced using [employer] dictation software. please excuse any grammatical, word or spelling errors. Objective - Vital Signs Vital signs: Vital Signs Temp 98.4 F 09/29/24 06:50 Pulse 76 09/29/24 06:50 Resp 16 09/29/24 06:50 BP 110/73 09/29/24 06:50 Pulse Ox 93 L 09/29/24 06:50 FiO2 Intake & Output 09/28/24 09/29/24 09/29/24 18:59 06:59 18:59 Intake Total 1620 Output Total 2850 3100 1150 Balance -1230 -3100 -1150 Weight 147.1 kg Intake: Oral 1620 Output: Drainage 500 Right calf and dorsal 500 foot Urine 2350 3100 1150 Other: # Bowel Movements 1 - Labs CBC & Chem 7: 09/22/24 05:23 09/26/24 06:29 Labs: Abnormal Lab Results - Last 24 Hours (Table) 09/28/24 09/28/24 09/29/24 Range/Units 17:08 20:26 07:05 POC Glucose (mg/dL) 217 H 206 H 204 H (70-110) mg/dL 09/29/24 Range/Units 12:02 POC Glucose (mg/dL) 225 H (70-110) mg/dL
[2024-09-29 17:05] LABS: Glucose,Whole Blood 262 mg/dL (70-110)
[2024-09-29 20:15] LABS: Glucose,Whole Blood 254 mg/dL (70-110)
--- NOTE | 2024-09-29 21:37 | P.PN ---
Subjective Progress Note Date: 09/29/24 Principal diagnosis: Reason for follow-up is right lower extremity wound Patient is a 43-year-old male with a past medical history significant for atrial fibrillation coronary disease diabetes mellitus hypertension hyperlipidemia in this patient also have a history of necrotizing infection to the right leg requiring multiple surgeries has completed course of IV antibiotic for his ESBL infection and was on oral Cipro and Bactrim with a recent culture positive for Pseudomonas and MRSA presented to hospital with weakness and worsening swelling. On today's evaluation that is 09/28/2024, patient did not have any fever and denies any chills, patient is breathing comfortably on room air, patient with no chest pain or cough patient did not have any abdominal pain nausea vomiting or any loose stools denies pain to the lower extremity. No new lab has been obtained today Objective - Vital Signs Vital signs: Vital Signs Temp 98.3 F 09/29/24 19:45 Pulse 73 09/29/24 19:45 Resp 16 09/29/24 19:45 BP 100/64 09/29/24 19:45 Pulse Ox 93 L 09/29/24 19:45 FiO2 Intake & Output 09/29/24 09/29/24 09/30/24 06:59 18:59 06:59 Intake Total 2397 Output Total 3100 2850 Balance -3100 -453 Weight 147.1 kg Intake: Oral 2397 Output: Drainage 450 Right calf and dorsal 450 foot Urine 3100 2400 Other: # Bowel Movements 1 - Exam GENERAL DESCRIPTION: Middle-age male lying in bed in no distress RESPIRATORY SYSTEM: Unlabored breathing , decreased breath sounds at bases HEART: S1 S2 regular rate and rhythm , ABDOMEN: Soft , no tenderness EXTREMITIES: Right leg wound covered with a wound VAC - Labs CBC & Chem 7: 09/22/24 05:23 09/26/24 06:29 Labs: Abnormal Lab Results - Last 24 Hours (Table) 09/29/24 09/29/24 09/29/24 Range/Units 07:05 12:02 17:03 POC Glucose (mg/dL) 204 H 225 H 262 H (70-110) mg/dL 09/29/24 Range/Units 20:14 POC Glucose (mg/dL) 254 H (70-110) mg/dL Assessment and Plan (1) Leg wound, right Current Visit: Yes Status: Acute Code(s): S81.801A - UNSPECIFIED OPEN WOUND, RIGHT LOWER LEG, INITIAL ENCOUNTER SNOMED Code(s): 67714138306117145 (2) Wound cellulitis Current Visit: Yes Status: Acute Code(s): L03.90 - CELLULITIS, UNSPECIFIED SNOMED Code(s): 265691812 Plan: 1patient presented to hospital with increasing swelling pain and redness of the right lower extremity in this patient who did have a history of necrotizing infection to the right leg requiring multiple surgery currently dealing with a large wound with a recent outpatient culture positive for strep MRSA and Pseudomonas now presenting with worsening swelling and weakness possibly cardiac etiology and is being monitored by cardiology 2patient is afebrile and blood culture has been negative, 3patient has received adequate antibiotic therapy we will go ahead and discontinue cefepime and Flagyl and monitor the patient closely off antibiotic Dictation was produced using [employer] dictation software. please excuse any grammatical, word or spelling errors. Time with Patient: Less than 30
[2024-09-30 07:25] LABS: Glucose,Whole Blood 295 mg/dL (70-110)
[2024-09-30 12:16] LABS: Glucose,Whole Blood 239 mg/dL (70-110)
--- NOTE | 2024-09-30 13:51 | P.PN ---
Subjective Interval History: patient is a 43-year-old gentleman past medical history significant for hyperlipidemia, diabetes mellitus, right lower extremity fasciotomy with wound VAC placement who presented the ER because of increasing weakness and swelling o f right lower extremity. Patient had multiple surgeries on his right leg and initially was getting antibiotics for ESBL E. coli. Patient was following up outpatient at the wound care center and had a recent wound culture done which showed Pseudomonas, Streptococcus electrically and MRSA, and was prescribed oral antibiotics. Patient was noticing for the last week he has been getting more weak and has noticed that his lower extremities were getting swollen. Patient also complained abdominal distention. Patient denied any fever or chills. There was no complaint of chest pain or shortness of breath. Patient was seen in the wound care clinic and was sent to the ER Initial lab work done in the ER showed WBC 7.4, hemoglobin 10, platelet count 366, sodium 130, potassium 5.2, BUN 18, creatinine 0.58, glucose 300, lactate 1.5, calcium 8.9, magnesium 1.6, alk phos 382, proBNP 4440 albumin 3 X-ray tibia and fibula showed no acute osseous abnormality, soft tissue changes in the medial right foreleg Chest x-ray done in the ER showed no acute cardiopulmonary process Patient admitted to internal medicine service 09/21. Patient seen and examined. Swelling of lower extremity has improved, s till has groin swelling. 2D echo done showed impaired LV function of 35%, mild to moderate mitral and tricuspid regurg with small pericardial effusion and mild pulmonary hypertension 09/22. Patient seen and examined. Swelling of lower extremities is improving. Denies any shortness of breath at rest. Vital signs stable. Blood work done showed WBC 5.82, hemoglobin 8, sodium 132, potassium 3.8, BUN 18, creatinine 0.70 proBNP 1882 09/23 This is a pleasant 43 years old male with chronic right leg wound and follow-up with the wound clinic who sent him to the hospital because of his right leg wo und. He has wound VAC in place, his right lower extremity is warm swollen to touch. Patient evaluated by ID team and he is on IV cefepime Flagyl and IV vancomycin Also patient has evidence of CHF with treatment with IV Lasix 40 mg twice daily His echocardiogram showed ejection fraction 30 to 35% He is on Eliquis for his A-fib His girlfriend at bedside after patient gave verbal consent 09/24 His right leg infection looks much better compared to yesterday is less swollen tender or redness Wound VAC remains on the space he remains on broad-spectrum antibiotics. Infectious disease team cleared him for discharge. However cardiology team added some medication like Entresto and will going to [facility] labs tomorrow Also discussed case with caser in/social services coordinator. The facility has accepted him pending insurance authorization I talked with the plan with the patient and he is agreeable for possible discharge in 24 to 48 hours if everything stable and improving 09/25 Patient still with bilateral lower extremity swelling. He is currently on IV Lasix for milligram twice daily, extra dose of Zaroxolyn is added. Also Entresto was added yesterday Repeat labs from today are stable He still have getting wound VAC in his right lower extremity, still swollen but warmth and redness. Patient supposed to go to subacute rehab but however he lost his insurance because he lost his job. Plan is with the social services coordinator trying to apply for Medicaid for him. In the meantime remains on broad-spectrum antibiotic. Plan discussed with the patient and he is agreeable 09/26 Patient is clinically doing well He still requiring more diuresis given swelling in his lower extremities He was placed on Bumex 1 mg twice daily plus Zaroxolyn 5 mg once daily x 3 days Wound VAC in place continue with antibiotics Patient pending placement 09/27 pt is doing well he is voiding well also almost every one hour right leg swelling is coming down and wound vac is in place remains on broad spectum antibiotics and on bumex and zaroxylin medically stable pending insurance authorization 09/28--patient was seen and examined today. No issues overnight. Afebrile, heart rate 78, respiratory rate 18, blood pressure 124/80, saturating 96% on room air. No new labs today. Remains on cefepime and Flagyl, infectious disease following. Anticipate discharge to subacute rehab. Wound VAC in place. 09/29--patient was seen and examined today. No issues overnight. Pain is controlled. Afebrile, heart rate 76, respiratory rate 16, blood pressure 110/73, saturating 93% on room air. No new labs. Currently on cefepime and Flagyl. Wound VAC in place, awaiting placement to subacute rehab. 09/30--patient was seen and examined today. No issues overnight. Afebrile, heart rate 72, respiratory 20, blood pressure 102/66, saturating 94% on room air. Infectious disease stopped antibiotics yesterday. Awaiting placement to subacute rehab. Assessment and plan: Left lower extremity cellulitis/wound: History of right lower extremity necrotizing infection: Presented with increasing swelling pain and redness of right lower extremity, has history of necrotizing infection in the right leg requiring multiple surgeries Outpatient culture positive for MRSA Pseudomonas, strep Infectious disease consulted, received cefepime and Flagyl while inpatient, now off antibiotics since 09/29, monitoring closely. Acute on chronic systolic CHF: Cardiomyopathy with EF 30 to 35% Paroxysmal atrial fibrillation: CAD status post PCI of LAD and RCA Hypertension Noncompliance Cardiology consulted Continue home medications Eliquis, aspirin, statin, Coreg, Farxiga, Aldactone, Entresto, Aldactone. Continue Bumex, cardiology recommended Zaroxolyn for 3 days Monitor daily weight and I&O's Diabetes mellitus: Accu-Cheks, diabetic diet Lantus, Humalog. DVT prophylaxis: AC Disposition: Awaiting subacute rehab Monitor vital signs and labs Labs and medication were reviewed. Continue same treatment. Further recommendations as per clinical course of the patient PHYSICAL EXAMINATION: GENERAL: The patient is A&O x3, NAD HEENT: EOMI, Sclerae anicteric, Moist Mucous membranes Neck: Supple, Non tender, No JVD PULMONARY: Equal breath souds B/L, No wheezing, No crackles. CARDIOVASCULAR: S1, S2 present. No murmurs, rubs, or gallops. ABDOMEN: Soft, nontender, nondistended, normoactive bowel sounds. No guarding or rebound tenderness. MUSCULOSKELETAL: No edema, No cyanosis. No clubbing. Normal ROM. Intact peripheral pulses. RLE--WV in place NEUROLOGICAL: CN 2-12 grossly intact. No FND Skin: No Rash REVIEW OF SYSTEMS: CONSTITUTIONAL: No fever or chills. CARDIOVASCULAR: No chest pain, palpitations or syncope. PULMONARY: No shortness of breath, no cough, sore throat. GASTROINTESTINAL: No nausea, vomiting, diarrhea, abdominal pain. : No Dysuria, urgency, frequency. Extremities: No edema. NEUROLOGICAL: No headaches, no weakness, or numbness Dictation was produced using [employer] software. please excuse any grammatical, word or spelling errors. Objective - Vital Signs Vital signs: Vital Signs Temp 97.7 F 09/30/24 11:50 Pulse 72 09/30/24 11:50 Resp 20 09/30/24 11:50 BP 102/66 09/30/24 11:50 Pulse Ox 94 L 09/30/24 11:50 FiO2 Intake & Output 09/29/24 09/30/24 09/30/24 18:59 06:59 18:59 Intake Total 2397 240 Output Total 2850 600 Balance -453 -360 Weight 146.3 kg Intake: Oral 2397 240 Output: Drainage 450 Right calf and dorsal 450 foot Urine 2400 600 Other: Voiding Method Urinal Urinal # Bowel Movements 1 - Labs CBC & Chem 7: 09/22/24 05:23 09/26/24 06:29 Labs: Abnormal Lab Results - Last 24 Hours (Table) 09/29/24 09/29/24 09/30/24 Range/Units 17:03 20:14 07:23 POC Glucose (mg/dL) 262 H 254 H 295 H (70-110) mg/dL 09/30/24 Range/Units 12:15 POC Glucose (mg/dL) 239 H (70-110) mg/dL
--- NOTE | 2024-09-30 15:34 | P.PN ---
Subjective Progress Note Date: 09/30/24 Principal diagnosis: Reason for follow-up is right lower extremity wound Patient is a 43-year-old male with a past medical history significant for atrial fibrillation coronary disease diabetes mellitus hypertension hyperlipidemia in this patient also have a history of necrotizing infection to the right leg requiring multiple surgeries has completed course of IV antibiotic for his ESBL infection and was on oral Cipro and Bactrim with a recent culture positive for Pseudomonas and MRSA presented to hospital with weakness and worsening swelling. On today's evaluation that is 09/30/2024, patient has been afebrile, patient is breathing comfortably and is currently on room air, patient denies having any significant cough no chest pain, patient denies nausea vomiting or diarrhea and no abdominal pain. No new lab has been repeated today Objective - Vital Signs Vital signs: Vital Signs Temp 97.7 F 09/30/24 11:50 Pulse 72 09/30/24 11:50 Resp 20 09/30/24 11:50 BP 102/66 09/30/24 11:50 Pulse Ox 94 L 09/30/24 11:50 FiO2 Intake & Output 09/29/24 09/30/24 09/30/24 18:59 06:59 18:59 Intake Total 2397 240 Output Total 2850 600 Balance -453 -360 Weight 146.3 kg Intake: Oral 2397 240 Output: Drainage 450 Right calf and dorsal 450 foot Urine 2400 600 Other: Voiding Method Urinal Urinal # Bowel Movements 1 - Exam GENERAL DESCRIPTION: Middle-age male lying in bed in no distress RESPIRATORY SYSTEM: Unlabored breathing , decreased breath sounds at bases HEART: S1 S2 regular rate and rhythm , ABDOMEN: Soft , no tenderness EXTREMITIES: Right leg wound covered with a wound VAC - Labs CBC & Chem 7: 09/22/24 05:23 09/26/24 06:29 Labs: Abnormal Lab Results - Last 24 Hours (Table) 09/29/24 09/29/24 09/30/24 Range/Units 17:03 20:14 07:23 POC Glucose (mg/dL) 262 H 254 H 295 H (70-110) mg/dL 09/30/24 Range/Units 12:15 POC Glucose (mg/dL) 239 H (70-110) mg/dL Assessment and Plan (1) Leg wound, right Current Visit: Yes Status: Acute Code(s): S81.801A - UNSPECIFIED OPEN WOUND, RIGHT LOWER LEG, INITIAL ENCOUNTER SNOMED Code(s): 02817878213506653 (2) Wound cellulitis Current Visit: Yes Status: Acute Code(s): L03.90 - CELLULITIS, UNSPECIFIED SNOMED Code(s): 501898420 Plan: 1patient presented to hospital with increasing swelling pain and redness of the right lower extremity in this patient who did have a history of necrotizing infection to the right leg requiring multiple surgery currently dealing with a large wound with a recent outpatient culture positive for strep MRSA and Pseudomonas now presenting with worsening swelling and weakness possibly cardiac etiology and is being monitored by cardiology 2patient is afebrile and blood culture has been negative, 3patient has received adequate antibiotic therapy and his antibiotic will discontinue yesterday at this point we will monitor the patient closely off antibiotics, question concern answered Dictation was produced using [employer] dictation software. please excuse any grammatical, word or spelling errors. Time with Patient: Less than 30
[2024-09-30 17:11] LABS: Glucose,Whole Blood 254 mg/dL (70-110)
[2024-09-30 20:10] LABS: Glucose,Whole Blood 261 mg/dL (70-110)
[2024-10-01 07:36] LABS: Glucose,Whole Blood 209 mg/dL (70-110)
[2024-10-01 12:30] LABS: Glucose,Whole Blood 351 mg/dL (70-110)
--- NOTE | 2024-10-01 15:02 | P.PN ---
Subjective Progress Note Date: 10/01/24 Principal diagnosis: Reason for follow-up is right lower extremity wound Patient is a 43-year-old male with a past medical history significant for atrial fibrillation coronary disease diabetes mellitus hypertension hyperlipidemia in this patient also have a history of necrotizing infection to the right leg requiring multiple surgeries has completed course of IV antibiotic for his ESBL infection and was on oral Cipro and Bactrim with a recent culture positive for Pseudomonas and MRSA presented to hospital with weakness and worsening swelling. On today's evaluation that is 10/01/2024, Patient is afebrile this morning patient denies having any chest pain shortness of breath or cough, the patient is currently on room air, patient denies any abdominal pain no diarrhea no nausea no vomiting. No new lab has been obtained today Objective - Vital Signs Vital signs: Vital Signs Temp 98 F 10/01/24 13:28 Pulse 72 10/01/24 13:28 Resp 18 10/01/24 13:28 BP 122/80 10/01/24 13:28 Pulse Ox 96 10/01/24 13:28 FiO2 Intake & Output 09/30/24 10/01/24 10/01/24 18:59 06:59 18:59 Intake Total 120 Output Total 500 1150 Balance -380 -1150 Weight 145 kg Intake: Oral 120 Output: Drainage 450 Right calf and dorsal 450 foot Urine 500 700 Other: Voiding Method Urinal Urinal Urinal # Bowel Movements 1 - Exam GENERAL DESCRIPTION: Middle-age male lying in bed in no distress RESPIRATORY SYSTEM: Unlabored breathing , decreased breath sounds at bases HEART: S1 S2 regular rate and rhythm , ABDOMEN: Soft , no tenderness EXTREMITIES: Right leg wound covered with a wound VAC - Labs CBC & Chem 7: 09/22/24 05:23 09/26/24 06:29 Labs: Abnormal Lab Results - Last 24 Hours (Table) 09/30/24 09/30/24 10/01/24 Range/Units 17:10 20:07 07:20 POC Glucose (mg/dL) 254 H 261 H 209 H (70-110) mg/dL 10/01/24 Range/Units 12:13 POC Glucose (mg/dL) 351 H (70-110) mg/dL Assessment and Plan (1) Leg wound, right Current Visit: Yes Status: Acute Code(s): S81.801A - UNSPECIFIED OPEN WOUND, RIGHT LOWER LEG, INITIAL ENCOUNTER SNOMED Code(s): 15450558690283994 (2) Wound cellulitis Current Visit: Yes Status: Acute Code(s): L03.90 - CELLULITIS, UNSPECIFIED SNOMED Code(s): 556674206 Plan: 1patient presented to hospital with increasing swelling pain and redness of the right lower extremity in this patient who did have a history of necrotizing infection to the right leg requiring multiple surgery currently dealing with a large wound with a recent outpatient culture positive for strep MRSA and Pseudomonas now presenting with worsening swelling and weakness possibly cardiac etiology and is being monitored by cardiology 2patient is afebrile and blood culture has been negative, 3patient has received adequate antibiotic therapy and his antibiotic currently being monitored closely off antibiotic no need for antibiotics on discharge Dictation was produced using [employer] dictation software. please excuse any grammatical, word or spelling errors. Time with Patient: Less than 30
--- NOTE | 2024-10-01 15:18 | P.PN ---
Subjective Interval History: patient is a 43-year-old gentleman past medical history significant for hyperlipidemia, diabetes mellitus, right lower extremity fasciotomy with wound VAC placement who presented the ER because of increasing weakness and swelling o f right lower extremity. Patient had multiple surgeries on his right leg and initially was getting antibiotics for ESBL E. coli. Patient was following up outpatient at the wound care center and had a recent wound culture done which showed Pseudomonas, Streptococcus electrically and MRSA, and was prescribed oral antibiotics. Patient was noticing for the last week he has been getting more weak and has noticed that his lower extremities were getting swollen. Patient also complained abdominal distention. Patient denied any fever or chills. There was no complaint of chest pain or shortness of breath. Patient was seen in the wound care clinic and was sent to the ER Initial lab work done in the ER showed WBC 7.4, hemoglobin 10, platelet count 366, sodium 130, potassium 5.2, BUN 18, creatinine 0.58, glucose 300, lactate 1.5, calcium 8.9, magnesium 1.6, alk phos 382, proBNP 4440 albumin 3 X-ray tibia and fibula showed no acute osseous abnormality, soft tissue changes in the medial right foreleg Chest x-ray done in the ER showed no acute cardiopulmonary process Patient admitted to internal medicine service 09/21. Patient seen and examined. Swelling of lower extremity has improved, s till has groin swelling. 2D echo done showed impaired LV function of 35%, mild to moderate mitral and tricuspid regurg with small pericardial effusion and mild pulmonary hypertension 09/22. Patient seen and examined. Swelling of lower extremities is improving. Denies any shortness of breath at rest. Vital signs stable. Blood work done showed WBC 5.82, hemoglobin 8, sodium 132, potassium 3.8, BUN 18, creatinine 0.70 proBNP 1882 09/23 This is a pleasant 43 years old male with chronic right leg wound and follow-up with the wound clinic who sent him to the hospital because of his right leg wo und. He has wound VAC in place, his right lower extremity is warm swollen to touch. Patient evaluated by ID team and he is on IV cefepime Flagyl and IV vancomycin Also patient has evidence of CHF with treatment with IV Lasix 40 mg twice daily His echocardiogram showed ejection fraction 30 to 35% He is on Eliquis for his A-fib His girlfriend at bedside after patient gave verbal consent 09/24 His right leg infection looks much better compared to yesterday is less swollen tender or redness Wound VAC remains on the space he remains on broad-spectrum antibiotics. Infectious disease team cleared him for discharge. However cardiology team added some medication like Entresto and will going to [facility] labs tomorrow Also discussed case with caseworker intake/social media content specialist. The facility has accepted him pending insurance authorization I talked with the plan with the patient and he is agreeable for possible discharge in 24 to 48 hours if everything stable and improving 09/25 Patient still with bilateral lower extremity swelling. He is currently on IV Lasix for milligram twice daily, extra dose of Zaroxolyn is added. Also Entresto was added yesterday Repeat labs from today are stable He still have getting wound VAC in his right lower extremity, still swollen but warmth and redness. Patient supposed to go to subacute rehab but however he lost his insurance because he lost his job. Plan is with the social media content specialist trying to apply for Medicaid for him. In the meantime remains on broad-spectrum antibiotic. Plan discussed with the patient and he is agreeable 09/26 Patient is clinically doing well He still requiring more diuresis given swelling in his lower extremities He was placed on Bumex 1 mg twice daily plus Zaroxolyn 5 mg once daily x 3 days [address]ound VAC in place continue with antibiotics Patient pending placement 09/27 pt is doing well he is voiding well also almost every one hour right leg swelling is coming down and wound vac is in place remains on broad spectum antibiotics and on bumex and zaroxylin medically stable pending insurance authorization 09/28--patient was seen and examined today. No issues overnight. Afebrile, heart rate 78, respiratory rate 18, blood pressure 124/80, saturating 96% on room air. No new labs today. Remains on cefepime and Flagyl, infectious disease following. Anticipate discharge to subacute rehab. Wound VAC in place. 09/29--patient was seen and examined today. No issues overnight. Pain is controlled. Afebrile, heart rate 76, respiratory rate 16, blood pressure 110/73, saturating 93% on room air. No new labs. Currently on cefepime and Flagyl. Wound VAC in place, awaiting placement to subacute rehab. 09/30--patient was seen and examined today. No issues overnight. Afebrile, heart rate 72, respiratory 20, blood pressure 102/66, saturating 94% on room air. Infectious disease stopped antibiotics yesterday. Awaiting placement to subacute rehab. 10/01--patient was seen and examined today. No issues overnight. Pain is controlled. Vital stable, remained afebrile. No new labs from today. Remained stable off antibiotics. Patient considering going home tomorrow. Still awaiting placement to subacute rehab, Assessment and plan: Left lower extremity cellulitis/wound: History of right lower extremity necrotizing infection: Presented with increasing swelling pain and redness of right lower extremity, has history of necrotizing infection in the right leg requiring multiple surger ies Outpatient culture positive for MRSA Pseudomonas, strep Infectious disease consulted, received cefepime and Flagyl while inpatient, now off antibiotics since 09/29, monitoring closely. Acute on chronic systolic CHF: Cardiomyopathy with EF 30 to 35% Paroxysmal atrial fibrillation: CAD status post PCI of LAD and RCA Hypertension Noncompliance Cardiology consulted Continue home medications Eliquis, aspirin, statin, Coreg, Farxiga, Aldactone, Entresto, Aldactone. Continue Bumex, cardiology recommended Zaroxolyn for 3 days Monitor daily weight and I&O's Diabetes mellitus: Accu-Cheks, diabetic diet Lantus, Humalog. DVT prophylaxis: AC Disposition: Awaiting subacute rehab Monitor vital signs and labs Labs and medication were reviewed. Continue same treatment. Further recommendations as per clinical course of the patient PHYSICAL EXAMINATION: GENERAL: The patient is A&O x3, NAD HEENT: EOMI, Sclerae anicteric, Moist Mucous membranes Neck: Supple, Non tender, No JVD PULMONARY: Equal breath souds B/L, No wheezing, No crackles. CARDIOVASCULAR: S1, S2 present. No murmurs, rubs, or gallops. ABDOMEN: Soft, nontender, nondistended, normoactive bowel sounds. No guarding or rebound tenderness. MUSCULOSKELETAL: No edema, No cyanosis. No clubbing. Normal ROM. Intact peripheral pulses. RLE--WV in place NEUROLOGICAL: CN 2-12 grossly intact. No FND Skin: No Rash REVIEW OF SYSTEMS: CONSTITUTIONAL: No fever or chills. CARDIOVASCULAR: No chest pain, palpitations or syncope. PULMONARY: No shortness of breath, no cough, sore throat. GASTROINTESTINAL: No nausea, vomiting, diarrhea, abdominal pain. : No Dysuria, urgency, frequency. Extremities: No edema. NEUROLOGICAL: No headaches, no weakness, or numbness Dictation was produced using [employer] dictation software. please excuse any grammatical, word or spelling errors. Objective - Vital Signs Vital signs: Vital Signs Temp 98 F 10/01/24 13:28 Pulse 72 10/01/24 13:28 Resp 18 10/01/24 13:28 BP 122/80 10/01/24 13:28 Pulse Ox 96 10/01/24 13:28 FiO2 Intake & Output 09/30/24 10/01/24 10/01/24 18:59 06:59 18:59 Intake Total 120 Output Total 500 1150 Balance -380 -1150 Weight 145 kg Intake: Oral 120 Output: Drainage 450 Right calf and dorsal 450 foot Urine 500 700 Other: Voiding Method Urinal Urinal Urinal # Bowel Movements 1 - Labs CBC & Chem 7: 09/22/24 05:23 09/26/24 06:29 Labs: Abnormal Lab Results - Last 24 Hours (Table) 09/30/24 09/30/24 10/01/24 Range/Units 17:10 20:07 07:20 POC Glucose (mg/dL) 254 H 261 H 209 H (70-110) mg/dL 10/01/24 Range/Units 12:13 POC Glucose (mg/dL) 351 H (70-110) mg/dL
[2024-10-01 17:13] LABS: Glucose,Whole Blood 333 mg/dL (70-110)
[2024-10-01 20:30] LABS: Glucose,Whole Blood 198 mg/dL (70-110)
[2024-10-02 07:24] LABS: Glucose,Whole Blood 309 mg/dL (70-110)
--- NOTE | 2024-10-02 12:08 | P.PN ---
Subjective Progress Note Date: 10/02/24 Principal diagnosis: Reason for follow-up is right lower extremity wound Patient is a 43-year-old male with a past medical history significant for atrial fibrillation coronary disease diabetes mellitus hypertension hyperlipidemia in this patient also have a history of necrotizing infection to the right leg requiring multiple surgeries has completed course of IV antibiotic for his ESBL infection and was on oral Cipro and Bactrim with a recent culture positive for Pseudomonas and MRSA presented to hospital with weakness and worsening swelling. On today's evaluation that is 10/02/2024,the patient denies any fever or any chills, patient is breathing comfortably on room air, the patient denies chest pain shortness of breath and no significant cough, patient denies abdominal pain, no nausea vomiting or diarrhea. No new lab has been obtained today Objective - Vital Signs Vital signs: Vital Signs Temp 99 F 10/02/24 07:19 Pulse 77 10/02/24 07:19 Resp 20 10/02/24 07:19 BP 106/71 10/02/24 07:19 Pulse Ox 95 10/02/24 07:19 FiO2 Intake & Output 10/01/24 10/02/24 10/02/24 18:59 06:59 18:59 Intake Total 1080 Output Total 1650 450 Balance -570 -450 Weight 113 kg Intake: Oral 1080 Output: Drainage 450 450 Right calf and dorsal 450 450 foot Urine 1200 Other: Voiding Method Urinal Urinal Urinal # Bowel Movements 2 - Exam GENERAL DESCRIPTION: Middle-age male lying in bed in no distress RESPIRATORY SYSTEM: Unlabored breathing , decreased breath sounds at bases HEART: S1 S2 regular rate and rhythm , ABDOMEN: Soft , no tenderness EXTREMITIES: Right leg wound covered with a wound VAC, surrounding swelling has significantly decreased - Labs CBC & Chem 7: 09/22/24 05:23 09/26/24 06:29 Labs: Abnormal Lab Results - Last 24 Hours (Table) 10/01/24 10/01/24 10/01/24 Range/Units 12:13 17:10 20:23 POC Glucose (mg/dL) 351 H 333 H 198 H (70-110) mg/dL 10/02/24 Range/Units 07:23 POC Glucose (mg/dL) 309 H (70-110) mg/dL Assessment and Plan (1) Leg wound, right Current Visit: Yes Status: Acute Code(s): S81.801A - UNSPECIFIED OPEN WOUND, RIGHT LOWER LEG, INITIAL ENCOUNTER SNOMED Code(s): 32362236787403545 (2) Wound cellulitis Current Visit: Yes Status: Acute Code(s): L03.90 - CELLULITIS, UNSPECIFIED SNOMED Code(s): 799195716 Plan: 1patient presented to hospital with increasing swelling pain and redness of the right lower extremity in this patient who did have a history of necrotizing infection to the right leg requiring multiple surgery currently dealing with a large wound with a recent outpatient culture positive for strep MRSA and Pseudomonas now presenting with worsening swelling and weakness possibly cardiac etiology and is being monitored by cardiology 2patient is afebrile and blood culture has been negative, 3patient has received adequate antibiotic therapy for underlying cellulitis wound infection and no need for any antibiotic on discharge Dictation was produced using [employer] dictation software. please excuse any grammatical, word or spelling errors. Time with Patient: Less than 30
[2024-10-02 12:21] LABS: Glucose,Whole Blood 256 mg/dL (70-110)
--- NOTE | 2024-10-02 12:32 | P.DS ---
Providers Date of admission: 09/18/24 12:12 Attending physician: Charisse Weldon Consults: 09/18/24 12:08 Consult Physician Urgent Consulting Provider: Jermaine Louis Consult Reason/Comments: Leg wound, cellulitis Do you want consulting provider notified?: Yes Primary care physician: Juancho Tal [facility] Course: Discharge diagnoses: Left lower extremity cellulitis/wound: History of right lower extremity necrotizing infection: Presented with increasing swelling pain and redness of right lower extremity, has history of necrotizing infection in the right leg requiring multiple keira geries Outpatient culture positive for MRSA Pseudomonas, strep Infectious disease consulted, received cefepime and Flagyl while inpatient, now off antibiotics since 09/29, monitoring closely--remained stable. Outpatient follow-up with wound care. Acute on chronic systolic CHF: Cardiomyopathy with EF 30 to 35% Paroxysmal atrial fibrillation: CAD status post PCI of LAD and RCA Hypertension Noncompliance Cardiology consulted Continue home medications Eliquis, aspirin, statin, Coreg, Farxiga, Aldactone, Entresto, Aldactone. Continue Bumex, cardiology recommended Zaroxolyn for 3 days-completed. Monitor daily weight and I&O's Outpatient follow-up with cardiology Diabetes mellitus: Home home meds. Hospital course: patient is a 43-year-old gentleman past medical history significant for hyperlipidemia, diabetes mellitus, right lower extremity fasciotomy with wound VAC placement who presented the ER because of increasing weakness and swelling of right lower extremity. Patient had multiple surgeries on his right leg and initially was getting antibiotics for ESBL E. coli. Patient was following up outpatient at the wound care center and had a recent wound culture done which showed Pseudomonas, Streptococcus electrically and MRSA, and was prescribed oral antibiotics. Patient was noticing for the last week he has been getting more weak and has noticed that his lower extremities were getting swollen. Patient also complained abdominal distention. Patient denied any fever or chills. There was no complaint of chest pain or shortness of breath. Patient was seen in the wound care clinic and was sent to the ER Initial lab work done in the ER showed WBC 7.4, hemoglobin 10, platelet count 366, sodium 130, potassium 5.2, BUN 18, creatinine 0.58, glucose 300, lactate 1.5, calcium 8.9, magnesium 1.6, alk phos 382, proBNP 4440 albumin 3 X-ray tibia and fibula showed no acute osseous abnormality, soft tissue changes in the medial right foreleg Chest x-ray done in the ER showed no acute cardiopulmonary process Patient admitted to internal medicine service 09/21. Patient seen and examined. Swelling of lower extremity has improved, st ill has groin swelling. 2D echo done showed impaired LV function of 35%, mild to moderate mitral and tricuspid regurg with small pericardial effusion and mild pulmonary hypertension 09/22. Patient seen and examined. Swelling of lower extremities is improving. Denies any shortness of breath at rest. Vital signs stable. Blood work done showed WBC 5.82, hemoglobin 8, sodium 132, potassium 3.8, BUN 18, creatinine 0.70 proBNP 1882 09/23 This is a pleasant 43 years old male with chronic right leg wound and follow-up with the wound clinic who sent him to the hospital because of his right leg wou nd. He has wound VAC in place, his right lower extremity is warm swollen to touch. Patient evaluated by ID team and he is on IV cefepime Flagyl and IV vancomycin Also patient has evidence of CHF with treatment with IV Lasix 40 mg twice daily His echocardiogram showed ejection fraction 30 to 35% He is on Eliquis for his A-fib His girlfriend at bedside after patient gave verbal consent 09/24 His right leg infection looks much better compared to yesterday is less swollen tender or redness Wound VAC remains on the space he remains on broad-spectrum antibiotics. Infectious disease team cleared him for discharge. However cardiology team added some medication like Entresto and will going to monitor labs tomorrow Also discussed case with sample case porter/clinical social work aide. The facility has accepted him pending insurance authorization I talked with the plan with the patient and he is agreeable for possible discharge in 24 to 48 hours if everything stable and improving 09/25 Patient still with bilateral lower extremity swelling. He is currently on IV Lasix for milligram twice daily, extra dose of Zaroxolyn is added. Also Entresto was added yesterday Repeat labs from today are stable He still have getting wound VAC in his right lower extremity, still swollen but warmth and redness. Patient supposed to go to subacute rehab but however he lost his insurance because he lost his job. Plan is with the clinical social work aide trying to apply for Medicaid for him. In the meantime remains on broad-spectrum antibiotic. Plan discussed with the patient and he is agreeable 09/26 Patient is clinically doing well He still requiring more diuresis given swelling in his lower extremities He was placed on Bumex 1 mg twice daily plus Zaroxolyn 5 mg once daily x 3 days Wound VAC in place continue with antibiotics Patient pending placement 09/27 pt is doing well he is voiding well also almost every one hour right leg swelling is coming down and wound vac is in place remains on broad spectum antibiotics and on bumex and zaroxylin medically stable pending insurance authorization 09/28--patient was seen and examined today. No issues overnight. Afebrile, heart rate 78, respiratory rate 18, blood pressure 124/80, saturating 96% on room air. No new labs today. Remains on cefepime and Flagyl, infectious disease following. Anticipate discharge to subacute rehab. Wound VAC in place. 09/29--patient was seen and examined today. No issues overnight. Pain is controlled. Afebrile, heart rate 76, respiratory rate 16, blood pressure 110/73, saturating 93% on room air. No new labs. Currently on cefepime and Flagyl. Wound VAC in place, awaiting placement to subacute rehab. 09/30--patient was seen and examined today. No issues overnight. Afebrile, heart rate 72, respiratory 20, blood pressure 102/66, saturating 94% on room air. Infectious disease stopped antibiotics yesterday. Awaiting placement to subacute rehab. 10/01--patient was seen and examined today. No issues overnight. Pain is controlled. Vital stable, remained afebrile. No new labs from today. Remained stable off antibiotics. Patient considering going home tomorrow. Still awaiting placement to subacute rehab. 10/02--patient was examined today. No issues overnight. Remained stable off antibiotics. Patient decided to go home with home health services. Follow-up with PCP in 1 week Follow-up with cardiology as outpatient Follow-up with wound care as outpatient. PHYSICAL EXAMINATION: GENERAL: The patient is A&O x3, NAD HEENT: EOMI, Sclerae anicteric, Moist Mucous membranes Neck: Supple, Non tender, No JVD PULMONARY: Equal breath souds B/L, No wheezing, No crackles. CARDIOVASCULAR: S1, S2 present. No murmurs, rubs, or gallops. ABDOMEN: Soft, nontender, nondistended, normoactive bowel sounds. No guarding or rebound tenderness. MUSCULOSKELETAL: No edema, No cyanosis. No clubbing. Normal ROM. Intact peripheral pulses. RLE--WV in place NEUROLOGICAL: CN 2-12 grossly intact. No FND Skin: No Rash Dictation was produced using [employer] dictation software. please excuse any grammatical, word or spelling errors. Patient Condition at Discharge: Fair Plan - Discharge Summary Discharge Rx Participant: Yes New Discharge Prescriptions: New Spironolactone [Aldactone] 25 mg PO DAILY #30 tab Bumetanide [BUMEX] 1 mg PO BID@0900,1600 #60 tab Dapagliflozin Propanediol [Farxiga] 10 mg PO DAILY #30 tab Sacubitril/Valsartan [Entresto 24 mg-26 mg Tablet] 1 each PO BID #60 tab Acetaminophen Tab [Tylenol] 650 mg PO Q6HR PRN tab PRN Reason: Mild Pain Or Fever > 100.5 Continue carvediloL [Coreg] 25 mg PO BID Atorvastatin [Lipitor] 80 mg PO DAILY INSULIN ASPART (NovoLOG) [NovoLOG (formulary)] 15 unit SQ HS Nitroglycerin Sl Tabs [Nitrostat] 0.4 mg SL Q5M PRN PRN Reason: Chest Pain Apixaban [Eliquis] 5 mg PO BID Insulin Detemir (Levemir) [Levemir] 15 unit SQ BID Aspirin 81 mg PO DAILY Discontinued Ciprofloxacin HCl [Cipro] 750 mg PO Q12H Sulfamethox-Tmp 800-160Mg [Bactrim DS 800-160 mg] 1 tab PO BID Discharge Medication List Atorvastatin [Lipitor] 80 mg PO DAILY 10/12/22 [History] carvediloL [Coreg] 25 mg PO BID 10/12/22 [History] Apixaban [Eliquis] 5 mg PO BID 05/15/24 [History] Aspirin 81 mg PO DAILY 05/15/24 [History] INSULIN ASPART (NovoLOG) [NovoLOG (formulary)] 15 unit SQ HS 05/15/24 [History] Insulin Detemir (Levemir) [Levemir] 15 unit SQ BID 05/15/24 [History] Nitroglycerin Sl Tabs [Nitrostat] 0.4 mg SL Q5M PRN 10/16/24 [History] Acetaminophen Tab [Tylenol] 650 mg PO Q6HR PRN tab 10/02/24 [Rx] Bumetanide [BUMEX] 1 mg PO BID@0900,1600 #60 tab 10/02/24 [Rx] Dapagliflozin Propanediol [Farxiga] 10 mg PO DAILY #30 tab 10/02/24 [Rx] Sacubitril/Valsartan [Entresto 24 mg-26 mg Tablet] 1 each PO BID #60 tab 10/02/24 [Rx] Spironolactone [Aldactone] 25 mg PO DAILY #30 tab 10/02/24 [Rx] Follow up Appointment(s)/Referral(s): Juancho Parada MD [Primary Care Provider] - 1-2 days [facility], [NON-STAFF] - As Needed ( [facility] will call you after discharge to schedule first contact) Aidan Lindsey MD [Medical Doctor] - 1 Week Discharge Disposition: HOME WITH HOME HEALTH SERVICES
[2024-10-02 12:58] VITALS: BP 105/66; PULSE 79; RESP 18; TEMP 97.8
== END 2024-10-02 15:30 | disposition home health service (06) | DRG 637 ==
LOC: EC 08:47 → 5NMEDONC 12:12
PROVIDERS: ADMIT Hospitalist; ATTEND Hospitalist
DX: E11.622 Type 2 diabetes mellitus with other skin ulcer (principal); I50.23 Acute on chronic systolic (congestive) heart failure; L97.213 Non-pressure chronic ulcer of right calf with necrosis of muscle; I31.39 Other pericardial effusion (noninflammatory); I27.20 Pulmonary hypertension, unspecified; B96.5 Pseudomonas (aeruginosa) (mallei) (pseudomallei) as the cause of diseases classified elsewhere; I11.0 Hypertensive heart disease with heart failure; E11.65 Type 2 diabetes mellitus with hyperglycemia; E66.9 Obesity, unspecified; F32.A Depression, unspecified; I08.1 Rheumatic disorders of both mitral and tricuspid valves; L03.115 Cellulitis of right lower limb; L03.116 Cellulitis of left lower limb; E11.621 Type 2 diabetes mellitus with foot ulcer; I48.0 Paroxysmal atrial fibrillation; L97.512 Non-pressure chronic ulcer of other part of right foot with fat layer exposed; L98.492 Non-pressure chronic ulcer of skin of other sites with fat layer exposed; Z79.4 Long term (current) use of insulin; E11.42 Type 2 diabetes mellitus with diabetic polyneuropathy; Z68.34 Body mass index [BMI] 34.0-34.9, adult; B95.5 Unspecified streptococcus as the cause of diseases classified elsewhere; B95.62 Methicillin resistant Staphylococcus aureus infection as the cause of diseases classified elsewhere; E78.5 Hyperlipidemia, unspecified; I25.10 Atherosclerotic heart disease of native coronary artery without angina pectoris; R19.09 Other intra-abdominal and pelvic swelling, mass and lump; I25.2 Old myocardial infarction; I25.5 Ischemic cardiomyopathy; Z56.0 Unemployment, unspecified; Z59.71 Insufficient health insurance coverage; Z79.01 Long term (current) use of anticoagulants; Z79.82 Long term (current) use of aspirin; Z79.899 Other long term (current) drug therapy; Z91.199 Patient's noncompliance with other medical treatment and regimen due to unspecified reason; Z95.5 Presence of coronary angioplasty implant and graft; Z28.310 Unvaccinated for COVID-19; Z28.21 Immunization not carried out because of patient refusal; Z96.89 Presence of other specified functional implants; Z87.891 Personal history of nicotine dependence
CPT/HCPCS: 36415; 71046; 80048; 80053; 80202; 82565; 83036; 83605; 83735; 83880; 85025; 85610; 85730; 87040; 93306; 96365; 96366; 96368; 96375; 99285